=== PATIENT | male | born 1945 | race Caucasian/White ===

== ENCOUNTER 2017-10-08 07:20 | Day surgery (SDC) | payer MEDICARE, SELFPAY ==
[2017-10-08 07:42] VITALS: BP 121/73; PULSE 58; RESP 16; TEMP 36.3; O2SAT 100; BMI 32.3
--- NOTE | 2017-10-08 08:50 | RAD_ITS ---
PROCEDURE: Cervical facet block. DATE OF EXAMINATION: October 08, 2017. INDICATION: Male, 72 years old. Neck pain. FLUOROSCOPY TIME (if supplied): (0:17) minutes/seconds Intraoperative imaging provided for left C4-C7 facet joint block. The spinal needles are seen at the appropriate sites. RAD/Cerv Spine 4 or 5 Views IMPRESSION: Fluoroscopic imaging provided for left C4-C7 facet joint block. Electronically Signed: Lyle Meadows MD at 8:17 EDT Tel [phone], Service support ,
[2017-10-08] MEDS: Bupivacaine 0.25% 30 ML Vial (09:01)
[2017-10-08] MEDS: MethylPREDNISolone Acetate 80 MG/ML Vial (09:02)
[2017-10-08 09:10] VITALS: BP 111/63; BP 121/73; PULSE 53; RESP 16; O2SAT 95
[2017-10-08 09:14] VITALS: BP 106/65; BP 121/73; PULSE 54; RESP 18; TEMP 36.2; O2SAT 99
[2017-10-08 09:25] VITALS: BP 107/72; BP 121/73; PULSE 51; RESP 16; O2SAT 95
[2017-10-08 09:31] VITALS: BP 104/81; BP 121/73; PULSE 50; RESP 16; TEMP 36.4; O2SAT 97
[2017-10-08 09:48] VITALS: BP 121/73
--- NOTE | 2017-10-08 10:44 | OP.PCM_ITS ---
Problem List (1) Cervical spondylosis Status: Chronic (2) DDD (degenerative disc disease), cervical Status: Chronic Report of Operation Date of Procedure: 10/08/17 Pre-Operative Diagnosis: Cervical spondylosis, cervical degenerative disc disease, cervical facet arthropathy Post-Operative Diagnosis: Cervical spondylosis, cervical degenerative disc disease, cervical facet arthropathy Surgery/Procedure Performed:: Left-sided cervical facet steroid injection C4, C5 , C6, C7 Description of Surgical Findings:: PROCEDURE: Left-sided cervical facet steroid injection C4, C5, C6, C7 PREOPERATIVE DIAGNOSES: Cervical spondylosis, cervical degenerative disc disease, and cervical facet arthropathy POSTOPERATIVE DIAGNOSES: Cervical spondylosis, cervical degenerative disc disease, and cervical facet arthropathy ANESTHESIA: MAC COMPLICATIONS: None BLOOD LOSS: Minimal PROCEDURE IN DETAIL: History and physical today was reviewed. Risks and benefits of the procedure were explained. The patient understood, agreed to our procedure, and informed consent was obtained. IV inserted per routine protocol. The patient was taken to the operating room, placed in a prone position with a pillow positioned underneath the chest. The neck area was prepped and draped in a sterile fashion using iodine x3. Under fluoroscopy guidance, on AP view, C4 through C7 vertebral bodies were visualized. . Under direct visualization with fluoroscopy at approximately 15-degree angle, starting on the left C4, ending on the left C7, passing through the C5-C6 using a 25-gauge 3-1/2 inch spinal needle, the needle was passed through the skin. The tip of the needle was maneuvered and directed towards the apophyseal junction of each corresponding vertebra. Once the tip of the needle was at the vicinity of the medial branch and in contact with the bone, the needle was redirected more lateral towards the medial branch. Once in contact with the medial branch, the stylet of each needle was then removed. After negative aspiration of blood with CSF and confirmation of AP as well as oblique view, a total of 3 mL of preservative- free 0.25% Marcaine with 80 mg Depo-Medrol was injected in divided doses between those 4 levels. The needles were then removed intact. The patient experienced no signs or symptoms of intrathecal, intravascular injection. The patient experienced no paraesthesia. The procedure was completed without any apparent difficulty, any complication. The patient appeared to tolerate well. ASSESSMENT AND PLAN: This is a 72-year-old Male with cervical spondylosis, cervical degenerative disc disease, and cervical facet arthropathy, status post left-sided cervical facet steroid injection C4 through C7. The patient will continue his current medications. The patient will follow up in approximately 2 weeks fo reevaluation.
== END 2017-10-08 09:49 | disposition home or self-care (01) ==
LOC: SDC 07:22 → AC 07:24
PROVIDERS: Visit Provider Anesthesiology Pain Medicine
PROC: 3E0U3BZ Introduction of Anesthetic Agent into Joints, Percutaneous Approach (ICD-10-PCS; CPT 64490; principal; 2017-10-08 08:45)
DX: M47.892 Other spondylosis, cervical region (principal); M50.321 Other cervical disc degeneration at C4-C5 level; M46.82 Other specified inflammatory spondylopathies, cervical region; I10 Essential (primary) hypertension; E78.5 Hyperlipidemia, unspecified; E11.9 Type 2 diabetes mellitus without complications; Z79.84 Long term (current) use of oral hypoglycemic drugs; Z79.899 Other long term (current) drug therapy
CPT/HCPCS: 64491; 64492; 64490; 72050; J7120

== ENCOUNTER 2018-06-24 09:43 | Day surgery (SDC) | payer MEDICARE, SELFPAY ==
--- NOTE | 2018-06-20 08:57 | HP.PCM_ITS ---
History of Present Illness The patient is a 73 year old M [] Past Medical History Past Medical History (Chronic Problems): Chronic Problems Cervical spondylosis (Chronic) DDD (degenerative disc disease), cervical (Chronic) Allergies No Known Allergies Allergy (Verified 06/19/18 09:23) Home Medications: Ambulatory Orders Medication Instructions Recorded Amitriptyline HCl [Elavil] 100 mg PO QHS 10/05/17 Cholecalciferol (Vitamin D3) 2,000 unit PO TID 10/05/17 [Vitamin D3] Levothyroxine [Synthroid] 50 mcg PO DAILY 10/05/17 Ranitidine [Zantac] 300 mg PO QHS 10/05/17 Vitamin B Complex 1 each PO DAILY 10/05/17 Amlodipine [Norvasc] 5 mg PO QHS 06/19/18 Fluticasone Propionate [24 Hour 15.8 ml NS DAILY 06/19/18 Allergy Relief] Hydrocodone/Acetaminophen [Vicodin 1 each PO TID 06/19/18 Hp 10-300 mg Tablet] Losartan/Hydrochlorothiazide 1 each PO DAILY 06/19/18 [Losartan-Hctz 100-25 mg Tab] Smoking Status: Never smoker Tobacco Use: Non-smoker Subjective: NOTE (Tuesday May 29, 2018 09:42 AM) Chief Complaint: F/U-Medication refills History of Present Illness: This is a 73 Y/O Male who was seen and evaluated at our office today as a follow up. Pain: neck (has decreased) and chandni feet .Post-lt thumb & finger sx.(getting stronger) Quality: constant in feet but varies in intensity Region: Pain at the base of neck up into skull but has decreased since his last inj from September.Pain in chandni feet is constant.Reports post-op pain in lt thumb and two fingers is getting stronger and has to decide when to get the other hand done. Severity: aching,burning,stabbing Timing: since 2011 Aggravated by: walking or standing Relieved by: injections Pain score (out of 10): 7/10 walking Other info: Patient is here for a follow up.Reports post op surgery in the left thumb and two fingers.States the finger and thumb are getting stronger and now has to decide when to get the right hand done.Reports pain in the feet has been elevated and states he has just been hurting a lot this past week.States it used to be worse at night but says it just hurts anytime and has been having pain in the knees and isnt sure if it is coming from the feet,weather or why they hurt so bad right now.Pain in the neck has been doing good since the last injection he had done last September. Patient states they went through some programs with [facility] for the SCS and states it was ABC and is now on C which seems to be working best so far but has only been on it for a week.Needs refill on vicodin and amitriptyline. Review of Systems: Patient denies any fever, chills, headache, change in weight without trying, vision or hearing problems. No cp, sob, anthony, pnd, orthopnea, or peripheral edema.They note no lumps or swollen glands, no new rashes, changing moles, or change in bowel or bladder function.Mood has been good overall. Past Medical History: h/o hearing aid h/o kidney stones h/o HTN h/o GERD h/o borderlineType II Diabetes h/o osteoarthritis s/p SCS Implant 10/21/2014 s/p CTR & Trigger finger release LT hand 2017 s/p right carpal tunnel release 2017 s/p sx on lt thumb and 2 fingers (bone replaced) 02/12/2018 Family History: Mother: HTN Father: HTN ======== Structured Family History ======== Father: Hypertension Mother: Hypertension Social History: [Tobacco: Never smoker Pipe Smoker: No Cigar Smoker: No Chewing Tobacco User: No] Patient denies any tobacco use or recreational drug use. Occasional alcohol consumption. Living situation: Occupation: Retired Allergies: No Known Allergies Medications: 1) amitriptyline 100 mg oral tablet, 1 PO QHS 2) amLODIPine 10 mg oral tablet, Take 1 tablet by mouth every evening 3) Fish Oil 1000 mg oral capsule, One tablet daily 4) fluticasone 50 mcg/inh nasal spray, each nostril BID 5) levothyroxine 50 mcg (0.05 mg) oral capsule, One tablet daily 6) losartan-hydroCHLOROthiazide 100 mg-25 mg oral tablet, Take 1 tablet by mouth once daily 7) metFORMIN 500 mg oral tablet, One tablet TID with meals 8) ranitidine 300 mg oral capsule, One tablet daily 9) VICODIN 10-300 MG, 1 PO TID PRN PAIN 10) Vitamin B12 500 mcg oral tablet, One tablet daily 11) Vitamin D3 2000 intl units oral capsule, One tablet BID 12) xray of cervical spine, M54.2 Physical Examination: Wt: 228 lb Ht/Ln: 67 in BMI: 35.7 BP: 125/72 Pulse: 57 RR: 16 Temp: 97.1F Pain: 7 Well nourished and well developed in no acute distress. Affect is normal and appropriate. Mucosa pink and moist. Chest is unlabored breathing, RRR, pt is alert and oriented to place, person and time. Neck is supple without significant lymphadenopathy or thyromegaly. Abdomen soft & non-tender. No HSM or masses appreciated. Extremities show no cyanosis, clubbing, or edema. Antalgic gait. Cervical ROM is limited due to pain much improved. Bilateral cervical facet challenge is positive much improved. Cervical paraspinal muscle tenderness much improved. Lumbar paraspinal muscle tenderness . Lumbar ROM is limited due to pain. Bilateral lumbar facet challenge is positive worse on the right. SLR is negative. Surgical scar is well healed. Motor and sensory exam is unchanged. Goals: Health Concerns: Assessment & Plan: # Lumbosacral spondylosis (M47.817): # Degenerative lumbar spinal stenosis (M48.06): # Lumbar radiculopathy (M54.16): # Lumbosacral radiculopathy (M54.17): # Cervical radiculopathy (M54.12): # Peripheral neuropathy (G64): # Carpal tunnel syndrome, bilateral upper limbs (G56.03): # Arthropathy of lumbar facet joint (M46.96): # Arthropathy of cervical spine facet joint (M48.9): # [facility] (current) use of opiate analgesic (Z79.891): # Cervical spondylosis (M47.812): # Degeneration of cervical intervertebral disc (M50.30): PRESCRIBE: VICODIN 10-300 MG, 1 PO TID PRN PAIN, # 90 , RF: 0. (M47.817): (M48.06): (M54.16): (M54.17): (M54.12): (G64): (G56.03): (M46.96): (M48.9): (Z79.891) Continue current medication regime Continue to use SCS states it does help UDS was reviewed, pt appears compliant OARRS was reviewed today and compliant. DIRE score is 19 SOAPP score is 1 Reviewed with the pt today our opioid agreement and they appear to understand. There are no signs of diversion or addiction with the pt, there is also no signs of abuse or misuse, continues to do well with their medications without any side effects, we will continue monitoring the pt closely. Risks and benefits of the above meds were discussed with the pt and he appears to understand. The common side effects of the medications were discussed and all of his questions and concerns were answered and he appears to understand Life style modifications were also discussed today and the pt appears to understand. Weight loss was recommended today through diet and exercise. Pt is to continue with his HEP Pt has tried multiple modalities in the past with little or no success, will schedule the pt for a therapeutic/diagnostic caudal epidural steroid injection We have discussed the risks, benefits as well as alternatives of the procedure and the patient appears to understand and would like to proceed with the above plan. The above plan was discussed today with the pt in details and he appears to understand and agrees to continue with the plan.
--- NOTE | 2018-06-20 08:57 | HP.PCM_ITS ---
History of Present Illness The patient is a 73 year old M [] Past Medical History Past Medical History (Chronic Problems): Chronic Problems Cervical spondylosis (Chronic) DDD (degenerative disc disease), cervical (Chronic) Allergies No Known Allergies Allergy (Verified 06/19/18 09:23) Home Medications: Ambulatory Orders Medication Instructions Recorded Amitriptyline HCl [Elavil] 100 mg PO QHS 10/05/17 Cholecalciferol (Vitamin D3) 2,000 unit PO TID 10/05/17 [Vitamin D3] Levothyroxine [Synthroid] 50 mcg PO DAILY 10/05/17 Ranitidine [Zantac] 300 mg PO QHS 10/05/17 Vitamin B Complex 1 each PO DAILY 10/05/17 Amlodipine [Norvasc] 5 mg PO QHS 06/19/18 Fluticasone Propionate [24 Hour 15.8 ml NS DAILY 06/19/18 Allergy Relief] Hydrocodone/Acetaminophen [Vicodin 1 each PO TID 06/19/18 Hp 10-300 mg Tablet] Losartan/Hydrochlorothiazide 1 each PO DAILY 06/19/18 [Losartan-Hctz 100-25 mg Tab] Smoking Status: Never smoker Tobacco Use: Non-smoker Subjective: NOTE (Sunday June 03, 2018 03:15 PM) Chief Complaint: F/U-Increased pain in the lower back into the hips and down the lt leg History of Present Illness: This is a 73 Y/O Female who was seen and evaluated at our office today as a follow up. Pain: lower back Quality: constant but varies in intensity Region: Lower back pain radiates across the lower back into the chandni hips and down the lt leg into the foot. Severity: dull-intense aching,sharp,burnig Timing: Since June 2014 Aggravated by: walking Relieved by: injections Pain score (out of 10): 7/10 Other info: Patient is here for a follow up for increased pain across the lower back into the hips and states the pain radiates down the left leg into the foot.States the pain is constant but varies in intensity with activity and can be sharp and burning on occasion. Wants to discuss the RFA as she isn't familiar with the procedure and wants to know what it involves, she would like to have an injection, she continues to have pain on her left side of her back and down the left leg, she denies any bowel or bladder problems, she continues to do ok with her medications. Review of Systems: Patient denies any fever, chills, headache, change in weight without trying, vision or hearing problems. No cp, sob, anthony, pnd, orthopnea, or peripheral edema.They note no lumps or swollen glands, no new rashes, changing moles, or change in bowel or bladder function.Mood has been good overall. Past Medical History: h/o HTN h/o breast cancer h/o endometrial cancer h/o hiatal hernia h/o Arthritis s/p TKRx2 RT s/p laparoscopy s/p breast mastectomy s/p total hysterectomy s/p Right THR 06/2015 Family History: Mother: Breast cancer Father: heart attack, diabetes Siblings: breast cancer ======== Structured Family History ======== Mother: Breast cancer Sister: Breast cancer Father: Myocardial infarction, Diabetes mellitus Social History: [Tobacco: Never smoker Pipe Smoker: No Cigar Smoker: No Chewing Tobacco User: No] Patient denies any tobacco use or recreational drug use. Occasional alcohol consumption. Living situation: Occupation: retired Tobacco: denies EtOH: denies Rec. drugs: denies Allergies: penicillin, tamoxifen, Arimidex, amoxicillin Medications: 1) aspirin 81 mg oral tablet, One tablet daily 2) biotin 5000 mcg oral tablet, disintegrating, One tablet daily 3) Calcium 600+D 600 mg-200 intl units oral tablet, One tablet daily 4) Centrum Silver oral tablet, One tablet daily 5) ibuprofen 200 mg oral tablet, PRN 6) Tylenol Extra Strength 500 mg oral tablet, PRN Physical Examination: Wt: 222 lb Ht/Ln: 62 in BMI: 40.6 BP: 122/80 Pulse: 91 RR: 16 Temp: 97.9F Pain: 6 Well nourished and well developed in no acute distress. Affect is normal and appropriate. Mucosa pink and moist. Chest is unlabored breathing, pt is alert and oriented to place, person and time. Neck is supple without significant lymphadenopathy or thyromegaly. Abdomen soft & non-tender. No HSM or masses appreciated. Extremities show no cyanosis, clubbing, or edema. Gait is Antalgic. Upper and lower Lumbar paraspinal muscle tenderness. Bilateral lumbar facet loading is positive . Lumbar ROM is limited due to pain. SLR is positive on the left. Motor and sensory exam is unchanged. 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 UDS was reviewed and was compliant. PEG was reviewed today. SOAPP score is 0 OARRS was reviewed today and compliant. Weight loss was recommended today through diet and exercise. Life style modifications were also discussed today and the pt appears to understand. There are no signs of diversion or addiction with the pt, there is also no signs of abuse or misuse, continues to do well with their medications without any side effects, we will continue monitoring the pt closely. Risks and benefits of the above meds were discussed with the pt and they appear to understand. The common side effects of the medications were discussed and all of their questions and concerns were answered and they appear to understand Pt is to continue with her HEP. Pt has tried multiple modalities with no success, we will schedule the pt for repeat caudal epidural steroid injection. We have discussed the risks, benefits as well as alternatives of the procedure and the patient appears to understand and would like to proceed with the above plan. The above plan was discussed today with the pt in details and they appear to understand and agrees to continue with the plan.
[2018-06-24 10:12] VITALS: BP 124/75; PULSE 58; RESP 16; TEMP 36.8; O2SAT 98; BMI 34.5
--- NOTE | 2018-06-24 10:36 | RAD_ITS ---
PROCEDURE: Caudal block. DATE OF EXAMINATION: June 24, 2018. INDICATION: Male, 73 years old. Chronic low back pain. FLUOROSCOPY TIME (if supplied): (0:26) minutes/seconds. 3 coned down intraoperative views were submitted. Intraoperative imaging provided for caudal block. The spinal needle is seen overlying the midportion of the sacrum. RAD/Fluor Guidance for Spine Inj IMPRESSION: Intraoperative imaging provided for caudal block. Electronically Signed: Lyle Meadows, at 8:48 EDT , Service support ,
[2018-06-24] MEDS: MethylPREDNISolone Acetate 80 MG/ML Vial (10:48)
[2018-06-24] MEDS: Bupivacaine 0.25% 30 ML Vial (10:49)
--- NOTE | 2018-06-24 10:52 | PCM.OPRPT ---
Problem List (1) Degeneration of intervertebral disc of lumbosacral region Status: Chronic (2) Radiculopathy of lumbosacral region Status: Chronic Report of Operation Date of Procedure: 06/24/18 Pre-Operative Diagnosis: Lumbosacral radiculopathy, lumbosacral degenerative disc disease, lumbosacral spinal stenosis Post-Operative Diagnosis: Lumbosacral radiculopathy, lumbosacral degenerative disc disease, lumbosacral spinal stenosis Surgery/Procedure Performed:: Diagnostic/therapeutic caudal epidural steroid injection Description of Surgical Findings:: PROCEDURE: Diagnostic/therapeutic caudal epidural steroid injection PREOPERATIVE DIAGNOSIS: Lumbosacral radiculopathy, lumbosacral degenerative disc disease, lumbosacral spinal stenosis POSTOPERATIVE DIAGNOSIS: Lumbosacral radiculopathy, lumbosacral degenerative disc disease, lumbosacral spinal stenosis ANESTHESIA: MAC COMPLICATIONS: None BLOOD LOSS: Minimal PROCEDURE IN DETAIL: History and physical today was reviewed. Risks and benefits of the procedure were explained. The patient understood, agreed to our procedure, and informed consent was obtained. IV inserted per routine protocol. The patient was taken to the operating room, placed in a prone position with a pillow positioned underneath the abdomen. The lower back area was prepped and draped in a sterile fashion using iodine x3 under fluoroscopy guidance on the lateral view the caudal space was identified the skin and subcutaneous tissue and size approximately 3 cc of 1% lidocaine using a 25-gauge regular needle under direct visualization fluoroscopy using a 22-gauge 3-1/2 inch spinal needle the needle was advanced via the skin through the sacral hiatus tip of the needle passed through the sacrococcygeal ligament advanced approximately S4 area after negative aspiration for blood or CSF a total of 3 cc of contrast were injected to confirm correct placement of the needle as well as cephalad spread the spread was followed to approximately L5 area after negative aspiration for blood or CSF and confirmation AP as well as lateral view a total of 15 cc of preservative-free 0.125% Marcaine with 80 mg of Depo-Medrol were injected easily. The needles were then removed intact. The patient experienced no signs or symptoms intrathecal, intravascular injection. The patient experienced no paraesthesia. The procedure was completed without any apparent difficult, any complication. The patient appeared to tolerate well. ASSESSMENT AND PLAN: This is a 73-year-old male with lumbosacral radiculopathy, lumbosacral degenerative disc disease, lumbosacral spinal stenosis status post diagnostic/therapeutic caudal epidural steroid injection. The patient will continue his current medications. The patient will follow in approximately 2 weeks for possible repeat of the procedure if indicated.
[2018-06-24 10:55] VITALS: BP 107/63; BP 124/75; PULSE 54; RESP 18; TEMP 36.4; O2SAT 99
[2018-06-24 11:00] VITALS: BP 124/75; BP 128/79; PULSE 50; RESP 18; O2SAT 97
[2018-06-24 11:05] VITALS: BP 124/75; BP 137/82; PULSE 56; RESP 18; O2SAT 97
[2018-06-24 11:10] VITALS: BP 124/75; BP 132/81; PULSE 55; RESP 18; TEMP 36.6; O2SAT 97
[2018-06-24 11:28] VITALS: BP 124/75
== END 2018-06-24 11:29 | disposition home or self-care (01) ==
LOC: SDC 09:46 → AC 09:57
PROVIDERS: Referring Provider Anesthesiology Pain Medicine; Visit Provider Anesthesiology Pain Medicine
PROC: 3E0S3BZ Introduction of Anesthetic Agent into Epidural Space, Percutaneous Approach (ICD-10-PCS; CPT 62282; principal; 2018-06-24 10:55)
DX: M51.17 Intervertebral disc disorders with radiculopathy, lumbosacral region (principal); M48.07 Spinal stenosis, lumbosacral region; I10 Essential (primary) hypertension; E78.00 Pure hypercholesterolemia, unspecified; G47.30 Sleep apnea, unspecified; K21.9 Gastro-esophageal reflux disease without esophagitis; M19.90 Unspecified osteoarthritis, unspecified site; E06.9 Thyroiditis, unspecified; R73.03 Prediabetes; Z79.891 Long term (current) use of opiate analgesic; Z79.899 Other long term (current) drug therapy
CPT/HCPCS: 62323; 64483; 77003; J7120; J3490

== ENCOUNTER 2019-10-27 12:03 | Day surgery (SDC) | payer MEDICARE, SELFPAY ==
[2019-10-24 20:38] LABS: Probe Check PASS; Specimen Processing Control PASS
[2019-10-27] VITALS (7 sets, daily range): BP systolic 118–156; BP diastolic 72–106; PULSE 60–71; RESP 16–18; TEMP 36.4–36.9; O2SAT 95–97; BMI 34.6
[2019-10-27 12:30] LABS: Bedside Glucose 117 mg/dL (70-110)
[2019-10-27] MEDS: Lactated Ringers 1,000 ML 100 ML IV (12:50)
[2019-10-27] MEDS: Cefazolin 2 GM in 0.9% Normal Saline 100 ML IV (14:34)
[2019-10-27] MEDS: Bupivacaine 0.25% 30 ML Vial (14:44)
--- NOTE | 2019-10-27 15:36 | PCM.OPRPT ---
Report of Operation Date of Procedure: 10/27/19 Description of Surgical Findings:: PROCEDURES: Exploration of the left buttock spinal cord stimulator generator pocket, creation of a left buttock spinal cord stimulator generator new pocket. PREOPERATIVE DIAGNOSES: Lumbosacral radiculopathy, lumbosacral degenerative disc disease, painful left buttock spinal cord stimulator generator pocket, erosion of spinal cord stimulator generator wound and dehiscence POSTOPERATIVE DIAGNOSES: Lumbosacral radiculopathy, lumbosacral degenerative disc disease, painful left buttock spinal cord stimulator generator pocket, erosion of spinal cord stimulator generator wound and dehiscence ANESTHESIA: MAC COMPLICATIONS: None BLOOD LOSS: Minimal PROCEDURE IN DETAIL: History and physical today was reviewed. Risks and benefits of procedure explained. The patient understood, agreed to procedure, informed consent was obtained. IV inserted per routine protocol. The patient was taken to the operating room, placed in the prone position with a pillow positioned underneath the chest. A 2 g of Ancef IV piggyback was infused per anesthesia. The lower back and buttock area was prepped and draped in a sterile fashion using iodine x3. The area was then draped in a sterile fashion with standard sterile fashion the skin and subcutaneous tissue at the left lower lumbar and buttock region was anesthetized with approximately 20 cc of a preservative-free mix of 1% lidocaine and 0.25% Marcaine at the previous incision the skin and subcutaneous tissue with then cutdown with an 11 blade followed by Bovie a careful attention was taken not to cut the wires to the spinal cord stimulator generator hemostasis was then maintained with Bovie as well as pressure once hemostasis was maintained the area was then explored and the spinal cord stimulator generator was then taken off its place after further exploration of the sutures attaching the spinal cord stimulator generator to the fascia the area was then explored further and the skin and subcutaneous tissue were then anesthetized further with a total of 10 cc of the above mixture the pocket was then advanced deeper into the fascia and taken down making sure maintaining a hemostasis during the procedure once the area was then explored the spinal cord stimulator was then re-inserted at the left buttock region once impedance as well the connection was then achieved via the Snatch that [employer] rep, the spinal cord stimulator generator was then resecured to the fascia with a 2 stitches 2-0 nylon down to the fascia at the 2 eyes of the spinal cord stimulator generator and the generator was then placed into its pocket with the [employer] printing facing posterior to the fascia and an anterior to the incision hemostasis was then maintained and after further exploration without any apparent bleeding the spinal cord stimulator generator pocket was then closed primarily with the interrupted 3-0 Vicryl followed by a running 4-0 Monocryl the area was then dressed with bacitracin and Tegaderm after Steri-Strips were placed the procedure was then completed without any apparent difficulty or any complication and the patient appeared to tolerate it well, there were no intraoperative complications. ESTIMATED BLOOD LOSS: Minimal less than 20 mL ASSESSMENT AND PLAN: This is a 74-year-old Male with Lumbosacral radiculopathy, lumbosacral degenerative disc disease, painful left buttock spinal cord stimulator generator pocket, erosion of spinal cord stimulator generator wound and dehiscence, status post Exploration of the left buttock spinal cord stimulator generator pocket, creation of a left buttock spinal cord stimulator generator new pocket, patient will continue his current medication a prescription was given to the patient and his for Keflex 500 mg 1 p.o. every 8 hours for 7 days postop instruction were given to the patient as well as his verbally as well as in writing patient will follow approximately 1 week for reevaluation.
== END 2019-10-27 17:17 | disposition home or self-care (01) ==
LOC: SDC 12:04 → AC 12:06
PROVIDERS: Anesthesiology; Referring Provider Anesthesiology Pain Medicine; Visit Provider Anesthesiology Pain Medicine
PROC: (CPT 63685; principal; 2019-10-27 13:15)
DX: Z45.42 Encounter for adjustment and management of neurostimulator (principal); Z11.59 Encounter for screening for other viral diseases; M19.90 Unspecified osteoarthritis, unspecified site; K21.9 Gastro-esophageal reflux disease without esophagitis; E11.42 Type 2 diabetes mellitus with diabetic polyneuropathy; M51.17 Intervertebral disc disorders with radiculopathy, lumbosacral region; M48.07 Spinal stenosis, lumbosacral region; E78.00 Pure hypercholesterolemia, unspecified; E11.22 Type 2 diabetes mellitus with diabetic chronic kidney disease; I12.9 Hypertensive chronic kidney disease with stage 1 through stage 4 chronic kidney disease, or unspecified chronic kidney disease; N18.3 Chronic kidney disease, stage 3 (moderate); Z79.899 Other long term (current) drug therapy; Z79.51 Long term (current) use of inhaled steroids; Z79.891 Long term (current) use of opiate analgesic; G47.30 Sleep apnea, unspecified
CPT/HCPCS: 63688; 82962; 87635; 94799; J7120; J2405; U0003

== ENCOUNTER 2021-03-28 09:09 | Day surgery (SDC) | payer MEDICARE, SELFPAY ==
[2021-03-28 09:46] VITALS: BP 115/63; PULSE 68; RESP 16; TEMP 36.9; O2SAT 98; BMI 33.5
[2021-03-28] MEDS: Lactated Ringers 1,000 ML 15 ML IV (09:51)
--- NOTE | 2021-03-28 09:59 | HP.PCM_ITS ---
History and Physical Date of Admission: 03/28/21 Chief Complaint: Follow up- x-ray review of left hip History of Present Illness: This is a 75 Y/O male who was evaluated by our office today as a follow up. Pain: neck (mild stiffness),lower back,right thigh, chandni feet (numbness/stabbing),chandni hands. left hip Quality: constant in feet but varies in intensity Region: Pain at the base of neck up into skull but is mild stiffness.Reports low back pain and has pain down the right upper thigh and in his feet which are the worst.Reports pain in chandni hands. Severity: aching,occasional stabbing,numbness Timing: since 2011 Aggravated by: walking or standing Relieved by: sleep, SCS, injections, medications Pain score (out of 10): 11/02 Other info: Patient is here for a follow up to review x-ray of left hip. Reports numbness/stabbing, burning in his bilateral feet. States his feet are his main concern. Reports his toes on bilateral feet constantly ache. Reports some neck pain on occasion but is mild stiffness. Reports bilateral knee pain and gets catching and stiffness. Reports pain in lower back varies with activity. States he has an intermittent sharp pain in left hip underneath the implant. Reports arthritis pain in his hands/fingers. No refills needed. Review of Systems: Patient denies any fever, chills, headache, change in weight without trying, vision or hearing problems. No cp, sob, anthony, pnd, orthopnea, or peripheral edema.They note no lumps or swollen glands, no new rashes, changing moles, or change in bowel or bladder function. Mood has been fluctuating. Past Medical History: h/o hearing aid h/o kidney stones h/o HTN h/o GERD h/o Type II Diabetes h/o osteoarthritis h/o chandni cataracts s/p SCS Implant 10/21/2014 s/p CTR & Trigger finger release LT hand 2016 s/p right carpal tunnel release 2016 s/p sx on lt thumb and 2 fingers (bone replaced) 02/12/2018 s/p chandni cataract sx 2018 s/p wisdom tooth s/p surgery on rt thumb 2019 Family History: Mother: HTN Father: HTN ======== Structured Family History ======== Father: Hypertension Mother: Hypertension Social History: [Tobacco: Never smoker Pipe Smoker: No Cigar Smoker: No Chewing Tobacco User: No] Patient denies any tobacco use or recreational drug use. Occasional alcohol consumption. Living situation: Occupation: Retired Allergies: No Known Allergies Medications: 1) amitriptyline 100 mg oral tablet, 1 PO QHS 2) amLODIPine 10 mg oral tablet, Take 1 tablet by mouth every evening 3) Fish Oil 1000 mg oral capsule, One tablet daily 4) Flomax 0.4 mg oral capsule, Take 1 tablet by mouth once daily 5) fluticasone 50 mcg/inh nasal spray, each nostril BID 6) gabapentin 600 mg oral tablet, 1 CAPSULE PO QID 7) hydroCHLOROthiazide 25 mg oral tablet, Take 1 tablet by mouth once daily 8) hydrocodone-acetaminophen 10 mg-300 mg oral tablet, 1 PO QID PRN PAIN. 9) levothyroxine 50 mcg (0.05 mg) oral capsule, One tablet daily 10) losartan 100 mg oral tablet, Take 1 tablet by mouth once daily 11) potassium chloride 10 mEq oral capsule, extended release, Take 1 tablet by mouth once daily 12) rosuvastatin 5 mg oral tablet, Take 1 tablet by mouth once daily 13) Vitamin B12 500 mcg oral tablet, One tablet daily 14) Vitamin D3 2000 intl units oral capsule, One tablet BID Physical Examination: Wt: 219 lb Ht/Ln: 67 in BMI: 34.3 BP: 135/79 Pulse: 47 RR: 16 Temp: 97.1F Pain: 8 Well nourished and well developed in no acute distress. Alert and oriented to person, place and time. Affect is normal and appropriate. Mucosa pink and moist. Respirations even and unlabored. Neck is supple without significant lymphadenopathy or thyromegaly. Abdomen soft & non-tender. No HSM or masses appreciated. Extremities show no cyanosis, clubbing, or edema. Gait is Antalgic. Cervical ROM is limited due to pain. Pain elicited with light palpation left greater trochanteric region Left upper gluteal incision is well healed. Bilateral cervical facet challenge is positive. Cervical paraspinal muscle tenderness. Lumbar paraspinal muscle tenderness. Lumbar ROM is limited due to pain worse with extension. Bilateral lumbar facet challenge is positive. SLR is negative. Positive surgical scar that is well healed. Motor and sensory exam is unchanged. 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 Continues to use his SCS with relief pt is to contact [employer] regarding how his stimulator is functioning. Follow up with his PCP UDS was reviewed, pt appears compliant OARRS was reviewed today and compliant. Pt was advised not to consume alcohol with his medications due to possible severe interaction, pt appears to understand. DIRE score is 19 SOAPP score is 1 Xray of the left hip was reviewed with the pt today and they appear to understand There are no signs of diversion or addiction with the pt, there is also no signs of abuse or misuse, continues to do well with their medications without any side effects, we will continue monitoring the pt closely. Risks and benefits of the above meds were discussed with the pt and he appears to understand. The common side effects of the medications were discussed and all of his questions and concerns were answered and he appears to understand. Life style modifications were also discussed today and the pt appears to understand. Weight loss was recommended today through diet and exercise. Pt is to continue with his HEP. Pt has tried multiple modalities with no success, we will schedule the pt for a therapeutic/diagnostic left hip intra-articular steroid injection under fluoroscopy We have discussed the risks, benefits as well as alternatives of the procedure and the patient appears to understand and would like to proceed with the above plan. The above plan was discussed today with the pt in details and they appear to understand and agrees to continue with the plan. PROVIDED: Patient Education (03/14/2021)
[2021-03-28 10:00] LABS: Bedside Glucose 119 mg/dL (70-110)
--- NOTE | 2021-03-28 10:00 | RAD_ITS ---
STUDY: X-RAY - PELVIS AND LEFT HIP REASON FOR EXAM: Male, 76 years old. Left hip injection. TECHNIQUE: A single frontal intraprocedural view of the pelvis and hip. COMPARISON: None. FINDINGS: A single frontal intraprocedural view of the left hip shows a needle with contrast within the left hip joint. RAD/Fluoro Guided Needle Placement IMPRESSION: Single frontal intraoperative procedural documentation view. Electronically Signed: Quinton Sanon MD at 10:51 EST , Service support ,
[2021-03-28 10:20] VITALS: BP 109/61; BP 115/63; PULSE 64; RESP 17; TEMP 35.7; O2SAT 94
[2021-03-28 10:25] VITALS: BP 114/68; BP 115/63; PULSE 65; RESP 14; O2SAT 95
[2021-03-28 10:30] VITALS: BP 115/63; BP 122/70; PULSE 62; RESP 16; O2SAT 93
[2021-03-28 10:36] VITALS: BP 115/63; BP 117/71; PULSE 61; RESP 16; TEMP 35.8; O2SAT 94
[2021-03-28 10:48] VITALS: BP 115/63
--- NOTE | 2021-03-28 11:15 | PCM.OPRPT ---
Report of Operation Date of Procedure: 03/28/21 Description of Surgical Findings:: PREOPERATIVE DIAGNOSIS: Osteoarthritis of the left hip POSTOPERATIVE DIAGNOSIS: Osteoarthritis of the left hip PROCEDURE PERFORMED: Left hip intraarticular steroid injection under fluoroscopy guidance. ANESTHESIA: MAC. BLOOD LOSS: Minimal. COMPLICATIONS: None. DESCRIPTION OF PROCEDURE: History and physical of today was reviewed. Risks and benefits of the procedure were explained. The patient understood and agreed to proceed. Informed consent was obtained. IV inserted per routine protocol. The patient was taken to the operating room and placed in the supine position. The left hip area was prepped and draped in a sterile fashion using iodine x3. Under fluoroscopy guidance on AP view, the left hip joint was visualized. The skin and subcutaneous tissue was anesthetized with approximately 3 mL of 1% lidocaine using a 25-gauge regular needle approximately 3 cm cephalad to the left greater trochanter. Under direct visualization with fluoroscopy on an AP view, using a 22-gauge 5-inch spinal needle, the needle was advanced via the skin using the lateral approach. The tip of the needle was maneuvered and directed towards the superiormost aspect of the hip joint. Once the tip of the needle was at the vicinity of the joint, after negative aspiration for blood and positive aspiration of synovial fluid, a total of 1 mL of contrast was injected to confirm correct placement of the needle as well as halo spread around the hip joint. After repeated negative aspiration for blood and confirmation on AP as well as oblique view, a total of 10 mL of preservative-free 0.25% Marcaine with 80 mg of Depo-Medrol was injected easily. The needle was then removed intact. The patient experienced no sign or symptoms of intrathecal or intravascular injection. The patient experienced no paresthesia. The procedure was completed without any apparent difficulty or any complications. The patient appeared to tolerate it well. ASSESSMENT AND PLAN: This is a 76-year-old male with osteoarthritis of the left hip status post left hip intra-articular steroid injection under fluoroscopic guidance, patient will continue his current medications, patient will follow in approximately 2 weeks for reevaluation.
== END 2021-03-28 23:59 | disposition home or self-care (01) ==
LOC: SDC 09:10 → AC 09:14
PROVIDERS: Referring Provider Anesthesiology Pain Medicine; Visit Provider Anesthesiology Pain Medicine
PROC: 3E0U3GC Introduction of Other Therapeutic Substance into Joints, Percutaneous Approach (ICD-10-PCS; CPT 20610; principal; 2021-03-28 10:35)
DX: M16.12 Unilateral primary osteoarthritis, left hip (principal); E11.42 Type 2 diabetes mellitus with diabetic polyneuropathy; I10 Essential (primary) hypertension; K21.9 Gastro-esophageal reflux disease without esophagitis; Z79.899 Other long term (current) drug therapy; Z79.890 Hormone replacement therapy; E03.9 Hypothyroidism, unspecified; E78.00 Pure hypercholesterolemia, unspecified; G47.30 Sleep apnea, unspecified
CPT/HCPCS: 20610; 76000; 77002; 82962; J7120

== ENCOUNTER 2021-05-02 09:22 | Day surgery (SDC) | payer MEDICARE, SELFPAY ==
[2021-05-02 10:06] VITALS: BP 133/72; PULSE 65; RESP 18; TEMP 37; O2SAT 96; BMI 34.0
[2021-05-02 10:25] LABS: Bedside Glucose 129 mg/dL (70-110)
[2021-05-02] MEDS: Lactated Ringers 1,000 ML 15 ML IV (10:25)
[2021-05-02] MEDS: Bupivacaine 0.25% 30 ML Vial (10:40)
[2021-05-02] MEDS: Lidocaine 1% (30 ml sdv) 30 ML Vial (10:40)
[2021-05-02] MEDS: MethylPREDNISolone Acetate 40 MG/ML Vial IM (10:40)
[2021-05-02 10:51] VITALS: BP 116/65; BP 133/72; PULSE 67; RESP 18; TEMP 36.8; O2SAT 96
[2021-05-02 10:55] VITALS: BP 116/59; BP 133/72; PULSE 57; RESP 16; O2SAT 92
--- NOTE | 2021-05-02 10:55 | RAD_ITS ---
PROCEDURE: Caudal block. DATE OF EXAMINATION: 05/02/2021. INDICATION: Male, 76 years old. Chronic low back pain. FLUOROSCOPY TIME (if supplied): (4 seconds) minutes/seconds. 2 images were obtained. RAD/Fluor Guidance for Spine Inj IMPRESSION: Intraoperative imaging provided for caudal block. Electronically Signed: Lyle Meadows MD at 15:02 EST ,
[2021-05-02 11:00] VITALS: BP 107/63; BP 133/72; PULSE 58; RESP 16; O2SAT 95
[2021-05-02 11:04] VITALS: BP 101/67; BP 133/72; PULSE 58; RESP 16; TEMP 37; O2SAT 95
[2021-05-02 11:17] VITALS: BP 133/72
--- NOTE | 2021-05-02 11:23 | OP.PCM_ITS ---
Report of Operation Date of Procedure: 05/02/21 Pre-Operative Diagnosis: Lumbosacral radiculopathy, lumbosacral degenerative di sc disease, lumbosacral spinal stenosis Post-Operative Diagnosis: Lumbosacral radiculopathy, lumbosacral degenerative disc disease, lumbosacral spinal stenosis Surgery/Procedure Performed:: Caudal epidural steroid injection under fluoroscopic guidance Type of Anesthesia: MAC Estimated Blood Loss (mL): Minimal Description of Procedure: DESCRIPTION OF PROCEDURE: History and physical of today was reviewed. Risks and benefits of the procedure were explained. The patient understood and agreed to proceed. Informed consent was obtained. IV inserted per routine protocol. The patient was taken to the operating room and placed in the prone position with a pillow positioned underneath the abdomen. The lower back and tailbone area was prepped and draped in a sterile fashion using iodine x3. Under fluoroscopy guidance on a lateral view, the caudal space was identified. The skin and subcutaneous tissue was anesthetized with approximately 3 mL of 1% lidocaine using a 25-gauge regular needle. Under direct visualization with fluoroscopy, using a 22-gauge 3-1/2-inch spinal needle, the needle was advanced via the skin through the sacral hiatus. The tip of the needle was passed through the sacrococcygeal ligament and advanced to approximately S4 area. After negative aspiration of blood or CSF, a total of 3 mL of contrast was injected to confirm correct placement of the needle as well as cephalad spread. The spread was followed to approximately L5 area. After confirmation on AP as well as lateral view and repeated negative aspiration, a total of 15 mL of preservative-free 0.125% Marcaine with 80 mg of Depo-Medrol was injected easily. The needle was then removed intact. The patient experienced no sign or symptoms of intrathecal or intravascular injection. The patient experienced no paresthesia. The procedure was completed without any apparent difficulty or any complications. The patient appeared to tolerate it well. ASSESSMENT AND PLAN: This is a 76-year-old male with lumbosacral radiculopathy, lumbosacral degenerative disc disease, lumbosacral spinal stenosis status post caudal epidural steroid injection, patient will continue his current medications, patient will follow in approximately 2 weeks for reevaluation. Complications None
== END 2021-05-02 23:59 | disposition home or self-care (01) ==
LOC: SDC 09:26 → AC 09:30
PROVIDERS: Referring Provider Anesthesiology Pain Medicine; Visit Provider Anesthesiology Pain Medicine
PROC: 3E0S3BZ Introduction of Anesthetic Agent into Epidural Space, Percutaneous Approach (ICD-10-PCS; CPT 62282; principal; 2021-05-02 10:50)
DX: M51.17 Intervertebral disc disorders with radiculopathy, lumbosacral region (principal); E11.42 Type 2 diabetes mellitus with diabetic polyneuropathy; M48.07 Spinal stenosis, lumbosacral region; K21.9 Gastro-esophageal reflux disease without esophagitis; I10 Essential (primary) hypertension; M47.22 Other spondylosis with radiculopathy, cervical region; M47.26 Other spondylosis with radiculopathy, lumbar region; M13.852 Other specified arthritis, left hip; Z79.899 Other long term (current) drug therapy; Z79.890 Hormone replacement therapy; Z79.51 Long term (current) use of inhaled steroids; Z79.84 Long term (current) use of oral hypoglycemic drugs; E78.00 Pure hypercholesterolemia, unspecified; E07.9 Disorder of thyroid, unspecified; G47.30 Sleep apnea, unspecified
CPT/HCPCS: 62323; 64483; 77003; 82962; J7120

== ENCOUNTER 2022-09-11 07:32 | Day surgery (SDC) | payer MEDICARE, SELFPAY ==
[2022-09-11] VITALS (7 sets, daily range): BP systolic 92–134; BP diastolic 51–63; PULSE 50–65; RESP 16–18; TEMP 36.1–37; O2SAT 96–99; BMI 31.4
[2022-09-11] MEDS: Lactated Ringers 1,000 ML 15 ML IV (09:16)
--- NOTE | 2022-09-11 09:43 | RAD_ITS ---
PROCEDURE: Fluoroscopic guided needle placement. INDICATION: Caudal block EXAMINATION/TECHNIQUE: 1 spot intraoperative films were provided for interpretation. Total Fluoroscopic Time: 8 seconds AND number of Fluoroscopic Images: 1 OR Radiation dosage index: 3.64 mGy COMPARISON: None. FINDINGS: Limited single lateral intraoperative fluoroscopic spot image of the sacrum and coccyx were obtained during fluoroscopy guided caudal block procedure. Lateral view of the sacrum and coccyx demonstrate needle placement at the level of the sacrococcygeal junction with contrast injection. RAD/Fluor Guidance for Spine Inj IMPRESSION: Fluoroscopy-guided caudal block. Please see intraoperative report for detailed findings. Electronically Signed: Samy Ryder DO at 13:52 EDT ,
[2022-09-11] MEDS: MethylPREDNISolone Acetate 80 MG/ML Vial (09:50)
[2022-09-11] MEDS: 0.9% Normal Saline (Pres. free 10 ML Vial (09:50)
[2022-09-11] MEDS: Lidocaine 1% (5 ml sdv) 5 ML Vial (09:50)
[2022-09-11 10:29] LABS: Bedside Glucose 99 mg/dL (74-106)
--- NOTE | 2022-09-11 11:23 | OP.PCM_ITS ---
Report of Operation Date of Procedure: 09/11/22 Pre-Operative Diagnosis: Lumbosacral radiculopathy, lumbosacral degenerative di sc disease, lumbosacral spinal stenosis Post-Operative Diagnosis: Lumbosacral radiculopathy, lumbosacral degenerative disc disease, lumbosacral spinal stenosis Surgery/Procedure Performed:: Diagnostic/therapeutic caudal epidural steroid injection under fluoroscopic guidance Type of Anesthesia: MAC Estimated Blood Loss (mL): Minimal Description of Procedure: DESCRIPTION OF PROCEDURE: History and physical of today was reviewed. Risks and benefits of the procedure were explained. The patient understood and agreed to proceed. Informed consent was obtained. IV inserted per routine protocol. The patient was taken to the operating room and placed in the prone position with a pillow positioned underneath the abdomen. The lower back and tailbone area was prepped and draped in a sterile fashion using iodine x3. Under fluoroscopy guidance on a lateral view, the caudal space was identified. The skin and subcutaneous tissue was anesthetized with approximately 3 mL of 1% lidocaine using a 25-gauge regular needle. Under direct visualization with fluoroscopy, using a 22-gauge 3-1/2-inch spinal needle, the needle was advanced via the skin through the sacral hiatus. The tip of the needle was passed through the sacrococcygeal ligament and advanced to approximately S4 area. After negative aspiration of blood or CSF, a total of 3 mL of contrast was injected to confirm correct placement of the needle as well as cephalad spread. The spread was followed to approximately L5 area. After confirmation on AP as well as lateral view and repeated negative aspiration, a total of 15 mL of preservative-free 0.125% Marcaine with 80 mg of Depo-Medrol was injected easily. The needle was then removed intact. The patient experienced no sign or symptoms of intrathecal or intravascular injection. The patient experienced no paresthesia. The procedure was completed without any apparent difficulty or any complications. The patient appeared to tolerate it well. ASSESSMENT AND PLAN: This is a 77-year-old male with lumbosacral radiculopathy, lumbosacral degenerative disc disease, lumbosacral spinal stenosis status post diagnostic/therapeutic caudal epidural steroid injection, patient will continue his current medications, patient will follow in approximately 2 weeks for reevaluation. Complications None
== END 2022-09-11 10:40 | disposition home or self-care (01) ==
LOC: SDC 07:38 → AC 08:55
PROVIDERS: Referring Provider Anesthesiology Pain Medicine; Visit Provider Anesthesiology Pain Medicine
PROC: 3E0S3BZ Introduction of Anesthetic Agent into Epidural Space, Percutaneous Approach (ICD-10-PCS; CPT 62282; principal; 2022-09-11 09:25)
DX: M51.17 Intervertebral disc disorders with radiculopathy, lumbosacral region (principal); E11.9 Type 2 diabetes mellitus without complications; M48.07 Spinal stenosis, lumbosacral region; G64 Other disorders of peripheral nervous system; Z79.01 Long term (current) use of anticoagulants; Z79.899 Other long term (current) drug therapy; Z79.84 Long term (current) use of oral hypoglycemic drugs
CPT/HCPCS: 62323; 01992; 64490; 77003; 82962; J7120; J3490

== ENCOUNTER 2024-10-13 09:41 | Day surgery (SDC) | payer MEDICARE, SELFPAY ==
--- NOTE | 2024-10-07 18:44 | PAT.ANESEVAL ---
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 When Was Last Pacemaker Check QUESTION #4 FULL TEXT: You/Your Family Experience fever (hyperthermia) with Anesthesia Last Oral Intake Last Oral intake: Last Oral Intake NPO since Meds taken in AM with sips of water? 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 Female Yes 10/07/24 10:23 HX of Motion Sickness No 10/07/24 10:23 HX of N/V After Surgery No 10/07/24 10:23 Non-Smoker Yes 10/07/24 10:23 Duration of Surgery greater No 10/07/24 10:23 than 60 minutes Number of Risk Factors 2 10/07/24 10:23 PONV Score Moderate Risk 10/07/24 10:23 Height & Weight Height & Weight: Anesthesia: Height & Weight Height 5 ft 8 in 09/11/22 09:10 Respiratory Assessment Respiratory Assessment - lawn sprinkler installer: Respiratory Tract Infection Hx - lawn sprinkler installer Hx Respiratory Tract Infection No 10/07/24 10:23 STOP Sleep Apnea STOP Sleep Apnea - lawn sprinkler installer: STOP Sleep Apnea - lawn sprinkler installer Hx Hypertension Yes: CONTROLLED WITH MED 10/07/24 10:23 Hx Sleep Apnea Yes 10/07/24 10:23 CPAP Yes: NO LONGER USES 10/07/24 10:23 BIPAP No 10/07/24 10:23 Do you snore loudly (louder than talking or can be heard Do you often feel tired/ fatigued/ sleepy during daytime? Has anyone observed you stop breathing during sleep? STOP Results Positive 10/07/24 10:23 QUESTION #5 FULL TEXT : Do you snore loudly (louder than talking or can be heard through closed doors)? 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 Specify any problems Hx of Preganancy in last 3 N/A 10/07/24 10:23 Months Nurse Filling Out Transfusion [id number] 10/07/24 10:23 & Questions: Date: 10/07/24 10/07/24 10:23 Time: 10:23 10/07/24 10:23 Patient unable to answer at this time (ie. confused, unrespo /Reproduction History /Reproductive History - lawn sprinkler installer: /Reproductive Hx- lawn sprinkler installer Hx Now No 10/07/24 10:23 Gestational Age (in weeks): EDC: Hx Hx Para Hx Section SAB No 10/07/24 10:23 [facility] Medical History (Updated 10/07/24 @ 13:01 by Garrett Colvin) History of pacemaker Cancer Heartburn CPAP (continuous positive airway pressure) dependence History of atrial fibrillation History of echocardiogram Cardiology follow-up encounter Wears hearing aid Wears glasses Thyroid disease Diabetes Arthritis High cholesterol Back pain Injury of head and neck Dietary restriction Non-smoker History of pain when walking History of stress test Hypertension History of trigger finger Home Medications ?Medication ?Instructions ?Recorded ?Last Taken ?Type amitriptyline 100 mg tablet 100 mg PO QHS 10/05/17 Unknown History cholecalciferol (vitamin D3) 50 1,000 unit PO DAILY 10/05/17 Unknown History mcg (2,000 unit) capsule (Vitamin D3) levothyroxine 50 mcg tablet 50 mcg PO [id number] 10/05/17 09/11/22 06:30 History vitamin B complex 1 ea PO DAILY 10/05/17 Unknown History amlodipine 5 mg tablet 10 mg PO DAILY bp 06/19/18 09/11/22 06:30 History fluticasone propionate 50 15.8 ml intranasal DAILY PRN nasal 06/19/18 Unknown History mcg/actuation nasal congestion spray,suspension (24 Hour Allergy Relief) hydrocodone 10 mg-acetaminophen 1 ea PO Q6H PRN PRN Pain 06/19/18 09/11/22 06:30 History 300 mg tablet (Vicodin HP) gabapentin 100 mg capsule 600 mg PO TID pain 10/24/19 09/11/22 06:30 History potassium chloride 10 mEq 10 meq PO DAILY 10/24/19 Unknown History tablet,extended release(part/cryst) coenzyme Q10 100 mg capsule 100 mg PO DAILY 03/22/21 Unknown History (CoQ-10) metformin 1,000 mg tablet 1,000 mg PO BID 03/22/21 Unknown History fsclt-d-viiixubyxmmli 400 unit 400 unit PO BID PRN (Drug) 09/07/22 Unknown History tablet (Beano) Ingestion atorvastatin 10 mg tablet 10 mg PO QHS 09/07/22 Unknown History levothyroxine 75 mcg tablet 75 mcg PO SUTH 09/07/22 Unknown History lisinopril 40 mg tablet 40 mg PO BID 09/07/22 09/11/22 06:30 History rivaroxaban 20 mg tablet (Xarelto) 20 mg PO DAILY 09/07/22 09/08/22 History semaglutide 2 mg/dose (8 mg/3 mL) 2 mg subcut WE 09/07/22 10/01/24 History subcutaneous pen injector (Ozempic) Allergy/AdvReac Type Severity Reaction Status Date / Time No Known Allergies Allergy Verified 10/07/24 10:20 Surgical History Hx laparoscopic cholecystectomy Hx of prostatectomy Hx of surgical procedure History of surgery Hx of thumb surgery Hx of surgical procedure Hx of surgical procedure History of bilateral carpal tunnel release Social History Smoking Status: Never smoker Audit: Pertinent Findings Pertinent Findings EKG Perinent findings: July 15, 2024. AV dual paced rhythm with frequent ventricular paced complexes. Echo (EF%) pertinent findings: 02/21/2023. EF of 63%. No aortic valve stenosis. Consult pertinent findings: 07/15/2024. Anthony?DEALER SUPPORT TECHNICIAN in cardiology. 1. Benign hypertension-controlled on current medications. 2. Paroxysmal atrial fibrillation-presently on sotalol. A-fib burden by pacemaker interrogation is 4% of the time. Continue meds. 3. Long-term current use of anticoagulants-currently on Xarelto. No current signs or symptoms of bleeding. Patient is to call with any problems. 4. Uexlynqer-twey-fimipme pacemaker. Normal function by today's interrogation. Recommendation Anesthesia Recommendation Anesthesia recommendation: OPTIMIZED for anesthesia
[2024-10-13] VITALS (7 sets, daily range): BP systolic 105–130; BP diastolic 59–87; PULSE 60–70; RESP 14–18; TEMP 2.2–36.3; O2SAT 96–98; BMI 33.7
[2024-10-13] MEDS: Lactated Ringers 1,000 ML 15 ML IV (10:26)
--- NOTE | 2024-10-13 10:30 | PCM.PRE.AN2 ---
ASA Classification* ASA Classification ASA Classification: 3 Assessment & Plan Anesthesia* Anesthesia Assessment Anesthesia Assessment: Discussed sedation and/or anesthesia options, risks, benefits, and alternatives with patient/parents/legal guardian/POA. Questions invited. The patient/parents/legal guardian/POA seems to understand and agrees to proceed with anesthesia plan. Reviewed the physical assessment, medical history, allergy history and patient home medications list prior to surgery/procedure/anesthetic and documented any changes. Performed airway and anesthesia risk assessments. Anesthesia Type Anesthesia Type: MAC History Source History Obtained from:: Patient and Chart Anesthesia Focused Assessment* Temperature: 96.7 F Pulse Rate: 70 Blood Pressure: 130/87 Respiratory Rate: 18 Pulse Ox: 97 Oxygen Delivery Method: Room Air Airway Assessment Mouth opens: >3 cm Mallampati Score: II Teeth Condition: Caps/Crowns (Patient has 1 veneer and 2 caps. 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 When Was Last Pacemaker Check QUESTION #4 FULL TEXT: You/Your Family Experience fever (hyperthermia) with Anesthesia Last Oral Intake Last Oral intake: Last Oral Intake NPO since 00:00 10/13/24 10:14 Meds taken in AM with sips of No 10/13/24 10:14 water? Meds patient instructed to take am of surgery Any additional information?: Yes Meds taken in AM with sips of water?: Yes PONV PONV - card clothier: PONV - card clothier Female Yes 10/07/24 10:23 HX of Motion Sickness No 10/07/24 10:23 HX of N/V After Surgery No 10/07/24 10:23 Non-Smoker Yes 10/07/24 10:23 Duration of Surgery greater No 10/07/24 10:23 than 60 minutes Number of Risk Factors 2 10/07/24 10:23 PONV Score Moderate Risk 10/07/24 10:23 Height & Weight Height & Weight: Anesthesia: Height & Weight Height 5 ft 8 in 10/13/24 10:14 Weight: 100.5 kg 10/13/24 10:14 Body Mass Index (BMI) 33.7 10/13/24 10:14 Respiratory Assessment Respiratory Assessment - card clothier: Respiratory Tract Infection Hx - card clothier Hx Respiratory Tract Infection No 10/07/24 10:23 STOP Sleep Apnea STOP Sleep Apnea - card clothier: STOP Sleep Apnea - card clothier Hx Hypertension Yes: CONTROLLED WITH MED 10/07/24 10:23 Hx Sleep Apnea Yes 10/07/24 10:23 CPAP Yes: NO LONGER USES 10/07/24 10:23 BIPAP No 10/07/24 10:23 Do you snore loudly (louder than talking or can be heard Do you often feel tired/ fatigued/ sleepy during daytime? Has anyone observed you stop breathing during sleep? STOP Results Positive 10/07/24 10:23 QUESTION #5 FULL TEXT : Do you snore loudly (louder than talking or can be heard through closed doors)? 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 Specify any problems Hx of Preganancy in last 3 N/A 10/07/24 10:23 Months Nurse Filling Out Transfusion [email or web address] 10/07/24 10:23 & Questions: Date: 10/07/24 10/07/24 10:23 Time: 10:23 10/07/24 10:23 Patient unable to answer at this time (ie. confused, unrespo /Reproduction History /Reproductive History - card clothier: /Reproductive Hx- card clothier Hx Now No 10/07/24 10:23 Gestational Age (in weeks): EDC: Hx Hx Para Hx Section SAB No 10/07/24 10:23 Active Medications Active Medications: Current Medications Generic Name Dose Route Start Last Admin Trade Name Freq PRN Reason Stop Dose Admin Lactated Ringer's 1,000 mls @ 15 mls/hr 10/13/24 10:00 10/13/24 10:26 IV 15 mls/hr .Q48H LYNDA Administration PFSH Medical History History of pacemaker Cancer Heartburn CPAP (continuous positive airway pressure) dependence History of atrial fibrillation History of echocardiogram Cardiology follow-up encounter Wears hearing aid Wears glasses Thyroid disease Diabetes Arthritis High cholesterol Back pain Injury of head and neck Dietary restriction Non-smoker History of pain when walking History of stress test Hypertension History of trigger finger Home Medications ?Medication ?Instructions ?Recorded ?Last Taken ?Type amitriptyline 100 mg tablet 100 mg PO QHS 10/05/17 10/12/24 History cholecalciferol (vitamin D3) 50 1,000 unit PO DAILY 10/05/17 10/12/24 History mcg (2,000 unit) capsule (Vitamin D3) levothyroxine 50 mcg tablet 50 mcg PO MOTUWEFRSA 10/05/17 10/11/24 History vitamin B complex 1 ea PO DAILY 10/05/17 10/12/24 History amlodipine 5 mg tablet 10 mg PO DAILY bp 06/19/18 10/13/24 History fluticasone propionate 50 15.8 ml intranasal DAILY PRN nasal 06/19/18 10/13/24 History mcg/actuation nasal congestion spray,suspension (24 Hour Allergy Relief) hydrocodone 10 mg-acetaminophen 1 ea PO Q6H PRN PRN Pain 06/19/18 10/13/24 History 300 mg tablet (Vicodin HP) gabapentin 100 mg capsule 600 mg PO TID pain 10/24/19 10/12/24 History potassium chloride 10 mEq 10 meq PO DAILY 10/24/19 10/12/24 History tablet,extended release(part/cryst) coenzyme Q10 100 mg capsule 100 mg PO DAILY 03/22/21 10/12/24 History (CoQ-10) metformin 1,000 mg tablet 1,000 mg PO BID 03/22/21 10/12/24 History mvhqs-f-lpxeogbgcsxif 400 unit 400 unit PO BID PRN (Drug) 09/07/22 10/12/24 History tablet (Beano) Ingestion atorvastatin 10 mg tablet 10 mg PO QHS 09/07/22 10/12/24 History levothyroxine 75 mcg tablet 75 mcg PO SUTH 09/07/22 10/12/24 History lisinopril 40 mg tablet 40 mg PO BID 09/07/22 10/12/24 History rivaroxaban 20 mg tablet (Xarelto) 20 mg PO DAILY 09/07/22 10/09/24 History semaglutide 2 mg/dose (8 mg/3 mL) 2 mg subcut WE 09/07/22 10/01/24 History subcutaneous pen injector (Ozempic) Allergy/AdvReac Type Severity Reaction Status Date / Time No Known Allergies Allergy Verified 10/13/24 10:12 Surgical History Hx laparoscopic cholecystectomy Hx of prostatectomy Hx of surgical procedure History of surgery Hx of thumb surgery Hx of surgical procedure Hx of surgical procedure History of bilateral carpal tunnel release Social History Smoking Status: Never smoker Review of Systems (Anesthesia) ROS Narrative System reviewed and no additional complaints, except as documented.
--- NOTE | 2024-10-13 10:40 | RAD_ITS ---
PROCEDURE: FLUOR GUIDANCE FOR SPINE INJ 10/13/2024 REASON FOR EXAM: BLOCK, CAUDAL TECHNIQUE: FLUOR GUIDANCE FOR SPINE INJ Fluoroscopy time: 5.2 seconds. Radiation dose: 1.36 mGy FINDINGS: 2 fluoroscopic spot images demonstrate needle approaching the sacrum Other findings: Other: RAD/Fluor Guidance for Spine Inj IMPRESSION: Fluoroscopic guidance provided for caudal block. For complete details, see the operative report. Reading Location: [facility]
[2024-10-13] MEDS: Lidocaine 1% (5 ml sdv) 5 ML Vial (10:48)
[2024-10-13] MEDS: 0.9% Normal Saline (Pres. free 10 ML Vial (10:49)
--- NOTE | 2024-10-13 10:58 | PCM.POST.ANE ---
Anesthesia: Postop Eval I Current Vital Signs Temperature: 36 F Pulse Rate: 60 Blood Pressure: 105/59 Respiratory Rate: 14 Pulse Ox: 98 Assessment Airway patent: Yes Spontaneous unlabored respirations: Yes nausea: No Vomiting: No Anesthesia Complication: No Fluid Hydration Crystalloid volume administer (ml): 300 Total IV fluid infused: 300 Progress Note Anesthesia document: Postop Eval 1 completed: Yes
--- NOTE | 2024-10-13 11:05 | PCM.OPRPT ---
Operative Report (Standard) Operative Information Date of Procedure: 10/13/24 Pre-Operative Diagnosis: 1 Post-Operative Diagnosis: 1 Surgery/Procedure Performed: 1 director emergency department: No Type of Anesthesia: Local MAC RN Documented Start/Stop Times: Operation Date: 10/13/24 11:30 Case Time Into Pre-Op 10/13/24 09:50 Anesthesia Start 10/13/24 10:41 Into Room 10/13/24 10:41 Procedure Start 10/13/24 10:47 Procedure End 10/13/24 10:50 Anesthesia End 10/13/24 10:53 Into Recovery 10/13/24 10:53 Out of Room 10/13/24 10:53 Procedure Start Time: 11:06 Procedure Stop Time: 11:06 Select all DRAINS/GRAFTS/IMPLANTS that apply: None Estimated Blood Loss: 1 Specimen collected: No Description of surgery: Pre-Operative Diagnosis: Lumbosacral radiculopathy, lumbosacral degenerative disc disease, lumbosacral spinal stenosis Post-Operative Diagnosis: Lumbosacral radiculopathy, lumbosacral degenerative disc disease, lumbosacral spinal stenosis Surgery/Procedure Performed:: Diagnostic/therapeutic caudal epidural steroid injection under fluoroscopic guidance Type of Anesthesia: MAC Estimated Blood Loss (mL): Minimal DESCRIPTION OF PROCEDURE: History and physical of today was reviewed. Risks and benefits of the procedure were explained. The patient understood and agreed to proceed. Informed consent was obtained. IV inserted per routine protocol. The patient was taken to the operating room and placed in the prone position with a pillow positioned underneath the abdomen. The lower back and tailbone area was prepped and draped in a sterile fashion using iodine x3. Under fluoroscopy guidance on a lateral view, the caudal space was identified. The skin and subcutaneous tissue was anesthetized with approximately 3 mL of 1% lidocaine using a 25-gauge regular needle. Under direct visualization with fluoroscopy, using a 22-gauge 3-1/2-inch spinal needle, the needle was advanced via the skin through the sacral hiatus. The tip of the needle was passed through the sacrococcygeal ligament and advanced to approximately S4 area. After negative aspiration of blood or CSF, a total of 3 mL of contrast was injected to confirm correct placement of the needle as well as cephalad spread. The spread was followed to approximately L5 area. After confirmation on AP as well as lateral view and repeated negative aspiration, a total of 15 mL of preservative-free 0.125% Marcaine with 80 mg of Depo-Medrol was injected easily. The needle was then removed intact. The patient experienced no sign or symptoms of intrathecal or intravascular injection. The patient experienced no paresthesia. The procedure was completed without any apparent difficulty or any complications. The patient appeared to tolerate it well. ASSESSMENT AND PLAN: This is a 79-year-old male with lumbosacral radiculopathy, lumbosacral degenerative disc disease, lumbosacral spinal stenosis status post diagnostic/therapeutic caudal epidural steroid injection, patient will continue his current medications, patient will follow in approximately 2 weeks for reevaluation. Surgical Findings: 1 Complications Complications: No Admit VTE Documentation VTE Present on Admission: No VTE Mechan Device Prophylaxis: None VTE Pharm Prophylaxis ordered?: No
--- NOTE | 2024-10-13 14:11 | POSTOPAN2_ITS ---
Anesthesia Postop Eval I Sum Postop Eval Completion status Anesthesia document: Postop Eval 1 completed: Yes Anesthesia Postop Eval I Summary Anesthesia Postop Eval I Summary: Anesthesia Postop Eval I: Assessment Summary Airway patent Yes 10/13/24 10:59 RETAIL MAINTENANCE [email or web address] Spontaneous unlabored Yes 10/13/24 10:59 RETAIL MAINTENANCE [email or web address] respirations Mental status nausea No 10/13/24 10:59 RETAIL MAINTENANCE [email or web address] Vomiting No 10/13/24 10:59 RETAIL MAINTENANCE [email or web address] Anesthesia Postop Eval I: Fluid Summary Crystalloid volume administer 300 10/13/24 10:59 RETAIL MAINTENANCE [email or web address] (ml) Colloids volume administered ( ml) Blood Product volume administered (ml) Total IV fluid infused 300 10/13/24 10:59 RETAIL MAINTENANCE [email or web address] Anesthesia Postop Eval I: Summary Notes Anesthesia Complication No 10/13/24 10:59 RETAIL MAINTENANCE [email or web address] Anesthesia Complication Comment: Post-operative progress note Anesthesia: Postop Eval II Evaluation Mental status: Awake and Calm Pain Level: 2 nausea: No Vomiting: No Complications Anesthesia Complication: No
--- NOTE | 2024-10-13 14:11 | PCM.POSTANE2 ---
Anesthesia Postop Eval I Sum Postop Eval Completion status Anesthesia document: Postop Eval 1 completed: Yes Anesthesia Postop Eval I Summary Anesthesia Postop Eval I Summary: Anesthesia Postop Eval I: Assessment Summary Airway patent Yes 10/13/24 10:59 [email or web address] [email or web address] Spontaneous unlabored Yes 10/13/24 10:59 [email or web address] [email or web address] [email or web address] respirations Mental status nausea No 10/13/24 10:59 [email or web address] [email or web address] [email or web address] Vomiting No 10/13/24 10:59 [email or web address] [email or web address] Anesthesia Postop Eval I: Fluid Summary Crystalloid volume administer 300 10/13/24 10:59 [email or web address] [email or web address] (ml) Colloids volume administered ( ml) Blood Product volume administered (ml) Total IV fluid infused 300 10/13/24 10:59 [email or web address] [email or web address] Anesthesia Postop Eval I: Summary Notes Anesthesia Complication No 10/13/24 10:59 [email or web address] [email or web address] Anesthesia Complication Comment: Post-operative progress note Anesthesia: Postop Eval II Evaluation Mental status: Awake and Calm Pain Level: 2 nausea: No Vomiting: No Complications Anesthesia Complication: No
--- OUTSIDE RECORDS SUMMARY | 2024-10-13 19:37 | XMS RPT_ITS | CCD ---
Author Organization [facility] Care Team Providers Care Social Work Lecturer Name Role Phone Tara, Eric Unavailable Unavailable Family Physician Unavailable Unavailable Elisa vailable Family Physician Unavailable Unavailable Elisa vailable Tara, Eric Unavailable Unavailable Family Physician Unavailable Unavailable Elisa vailable Family Physician Unavailable Unavailable Elisa vailable Unavailable Primary Care Provider Unavailabl e DR JESSICA MARTINEZ DO Primary Care Physician Jessica Martinez DO Primary Care Provider Boyd Linares DO Unavailable Jessica Martinez DO Primary Care Provider Boyd Linares DO Unavailable Reza Linares DOin G Unavailable Reza Linares DOin G Unavailable Mimi GOMEZ, Nir Primary Care Provider Nir Le MD Primary Care Provider Sunny Farah Unavailable Jessica Martinez Primary Care Provider Avtar Babin MD Unavailable Jessica Martinez Primary Care Provider Nir Le MD Primary Care Provider Nir Le MD Primary Care Provider Padmini BA, Codie Unavailable Unavailable Avtar Babin MD Unavailable SUNNY FARAH MD Unavailable DR JESSICA MARTINEZ DO Primary Care Unavailab NIR Garcia MD Primary Care Unavailable LOWE CORSAGE MAKER-C, MCKAY Attending Unavailable ANGELES TICKET SORTER-EPIC AMBULATORY ANALYST, MEL Milian Attending Unava ilable MARTINEZ DO, DR JESSICA Graham Primary Care Unavailab araseli FARAH MD, SUNNY Swift Attending Unavailable MARTINEZ DO, DR JESSICA Graham Primary Care Unavailab araseli FARAH MD, SUNNY Swift Attending Unavailable MARTINEZ DO, DR JESSICA Graham Primary Care Unavailab JANET Eduardo MD Attending Unavailable MARTINEZ DO, DR JESSICA Graham Primary Care Unavailab le ANGELES TICKET SORTER-EPIC AMBULATORY ANALYST, MEL Milian Attending Unava ilable MARTINEZ , DR JESSICA Graham Primary Care Unavailab araseli FARAH MD, SUNNY Swift Attending Unavailable MIMI GOMEZ, NIR Beauchamp Primary Care Unavailable ANGELES TICKET SORTER-EPIC AMBULATORY ANALYST, MEL D Attending Unava ilable MARTINEZ DO, DR JESSICA Graham Primary Care Unavailab le BRIDGETTE PERKINS-EPIC AMBULATORY ANALYST, MEL Milian Attending Unava ilable MARTINEZ DO, DR JESSICA Graham Primary Care Unavailab Nat GOMEZ, SUNNY Swift Attending Unavailable MARTINEZ , DR JESSICA Graham Primary Care Unavailab araseli Le MD, Nir Primary Care Provider Jessica Martinez DO Primary Care Provider Reji DO Aric A Unavailable NIR LE MD Attending Unavailable MIMI GOMEZ, NIR Beauchamp Primary Care Unavailable MIMI GOMEZ, NIR Beauchamp Primary Care Unavailable NIR LE MD Attending Unavailable Boyd Linares DO Unavailable Boyd Linares DO G Unavailable Nir Burnett MD Primary Care Provider [phone] Sunny Estevez Referring Unavailable Sunny Estevez Attending Unavailable ROSS MCCORMACK Primary Care Unavailable HORTENCIA, NIR Primary Care Unavailable HORTENCIA, NIR Primary Care Unavailable REJIARIC Swift Attending Unavailable HORTENCIA, NIR Primary Care Unavailable REJISHANNONARIC Attending Unavailable HORTENCIA, NIR Primary Care Unavailable REJIARIC Attending Unavailable HORTENCIA, NIR Primary Care Unavailable AVTAR BABIN Attending Unavailable HORTENCIA, NIR Primary Care Unavailable REJIKASEYARIC Attending Unavailable HORTENCIA, NIR Primary Care Unavailable NETAVTAR LOPEZ Attending Unavailable HORTENCIA, NIR Primary Care Unavailable ARIC LINDA Admitting Unavailable ARIC LINDA Attending Unavailable MIMI, NIR Primary Care Unavailable MIMI, NIR Primary Care Unavailable BRUNILDA CRUZ Attending Unavailable MIMI, NIR Primary Care Unavailable MIMI, NIR Primary Care Unavailable NETAVTAR LOPEZ Referring Unavailable MIMI, NIR Primary Care Unavailable MIMI, NIR Primary Care Unavailable CRYSTAL, YENNYANG Referring Unavailable MIMI, NIR Primary Care Unavailable YUSUF TURNER Referring Unavailable MIMI, NIR Primary Care Unavailable KLAUS ESTEVEZ Referring Unavailab le MIMI, NIR Primary Care Unavailable BRUNILDA CRUZ Attending Unavailable MIMI, NIR Primary Care Unavailable MIMI, NIR Primary Care Unavailable CRYSTAL, YENNYANG Referring Unavailable MIMI, NIR Primary Care Unavailable ANGELINE CHOW Referring Unavailable MIMI, NIR Primary Care Unavailable ARIC LINDA A Referring Unavailable MIMI, NIR Primary Care Unavailable Dr. Sunny Estevez MD Attending Provider Dr. Sunny Estevez MD Referring Provider [phone] NIR BURNETT Primary Care Provider Medications Current Medications Medication Drug Class(es) Dates Sig (Normalized) Sig (Original) Unqhw-F-Tqlwuyaobdj se (Beano) 400 unit Tablet (2 sources) Start: 09-07-2022 take 1 tablet by mouth twice daily as needed Dkvnc-I-Tlclxakhyg ase (Beano) 400 unit Tablet Active 400 U PO TWICE A DAY as needed for (Drug) Ingestion September 07, 2022 12:00am Start: 09-07-2022 take 1 tablet by jonathan th twice daily Uuclr-H-Quytdotdlsebz (Beano) 400 unit Tablet Active 400 UNIT PO TWICE A DAY September 07, 2022 12:00am amLODIPine 5 mg oral tablet (20 sources) Dihydropyridine Calcium Channel Ralph Start: 07-30-2023 take 1 tablet by mouth once daily amLODIPine (NORVASC) 5 mg tablet Take 5 mg by mouth once daily. 07/30/2023 Active Start: 09-09-2020 End: 07-05-2023 take 1 tablet by mouth once daily amLODIPine (NORVASC) 5 mg tablet Take 5 mg by mouth once daily. 07/30/2023 Active Start: 06-19-2018 take 2 tablets by mo [facility] once daily Amlodipine 5 MG tablet Active 10 mg PO DAILY June 19, 2018 12:00am bp Start: 06-19-2018 take 10 mg by mouth once daily Amlodipine Active 10 MG PO DAILY June 19, 2018 12:00am Comment on above: Take 5 mg by mouth o nce daily. B Complex Vitamins (vitamin B complex) tablet (9 sources) B Complex Vitamins (vitamin B complex) tablet Take by mouth. Active cholecalciferol 0.125 mg/ml oral solution (20 sources) Vitamin D Start: 10-05-2017 take 5000 [IU] by mouth once daily in the morning Cholecalciferol, Vitamin D3, 125 mcg/mL (5,000 unit/mL) drop Take 5,000 Units by mouth every morning. 10/05/2017 Active Start: 10-05-2017 take 1 capsule by mo [facility] once daily Cholecalciferol, Vitamin D3, 50 mcg (2,000 unit) cap Take 1,000 Units by mouth once daily. 0 10/05/2017 Active Start: 10-05-2017 Cholecalcifero l (Vitamin D3) (Vitamin D3) 2,000 UNIT capsule Active 1000 U PO DAILY October 05, 2017 12:00am take 1 capsule by mo ut every twenty-four hours cholecalciferol (Vitamin D-3) 125 MCG (5000 UT) capsule Take 1 capsule by mouth Every 24 hours. Active Comment on above: Take 1,000 Units by mouth once daily. Take 5,000 Units by mouth every morning. Co Q-10 100 mg oral capsule (1 source) Start: 1 Co Q-10 100 mg oral capsule Dose : 100 mg = 1 cap(s), Oral, Daily, 0 Refill(s) Start Date: 09/09/20 Status: Ordered 0.4 ml enoxaparin sodium 100 mg/ml prefilled syringe (11 sources) Low Molecular Weight Heparin Start: 4 End: 4 inject 0.4 mL by subcutaneous injection once daily enoxaparin (Lovenox) 40 MG/0.4ML solution prefilled syringe Inject 0.4 mL (40 mg) under the skin daily for 7 days. 7 each 0 04/24/2023 05/01/2023 Active Start: 04-24-2023 End: 05-01-2023 enoxaparin (LOVENOX) 40 mg/0 .4 mL Inject 40 mg subcutaneously once daily. For 7 days 0 04/24/2023 05/01/2023 Active Start: 04-24-2023 End: 04-24-2023 inject 40 mg by subcutaneous injection every twenty-four hours 40 mg, SubCUTAneous, Every 24 hours scheduled (Daily), First dose on Sun04/24/23 at 0900, Phase II/On Unit, Indication of Use: Prophylaxis-DVT/PE, Indications: Prophylaxis of Venous Thromboembolism Start: 02-06-2023 End: 02-08-2023 inject 0.8 mL by subcutaneous injection every twelve hours enoxaparin (LOVENOX) 80 mg/0.8 mL Inject 0.8 mL subcutaneously every 12 hours for 2 days. 3.2 mL 0 02/06/2023 02/08/2023 Suspended Comment on above: Inject 0.8 mL subcut aneously every 12 hours for 2 days. Inject 40 mg subcuta neously once daily. For 7 days hydroCHLOROthiazide 25 mg / losartan potassium 100 mg oral tablet (1 source) Thiazide Diuretic, Angiotensin 2 Receptor Ralph Start: 09-10-19 take 1 tablet by mouth once daily hydrochlorothi azide-losartan 25-100 mg oral tablet Dose = 1 tab(s), Oral, qDay, # 30 tab(s), 0 Refill(s) Start Date: 09/09/20 Status: Ordered icosapent ethyl 1000 mg oral capsule (20 sources) Start: 06-06-19 Vascepa 1 g capsule 12/11/2022 Active Start: 06-05-2022 End: 01-07-2024 take 2 capsules by mouth twice daily at mealtime VASCEPA 1 gram capsule Indications: Essential hypertension , Paroxysmal atrial fibrillation (HCC) , Encounter for screening for cardiovascular disorders Take 2 g by mouth two times a day with meals. 06/05/2022 01/07/2024 Discontinued (Other) Start: 09-09-2020 Vascepa 1 g or al capsule 0 Refill(s) Start Date: 09/09/20 Status: Ordered Comment on above: Take 2 g by mouth tw o times a day with meals. Losartan (1 source) Angiotensin 2 Receptor Ralph Start: 3 losartan See Instructions, Oral qDay, 0 Refill(s) Start Date: 11/13/22 Status: Ordered 24 hr metFORMIN hydrochloride 500 mg extended release oral tablet (20 sources) Biguanide Start: take 1 tablet by mouth once daily metFORMIN XR (Glucophage-XR) 500 MG 24 hr tablet Take 500 mg by mouth daily. 03/20/2023 Active Start: 03-20-2023 take 1 tablet by jonathan th twice daily metFORMIN XR (Glucophage-XR) 500 MG 24 hr tablet Take 500 mg by mouth 2 times daily. 03/20/2023 Active Start: 03-20-2023 metFORMIN XR ( Glucophage-XR) 500 MG 24 hr tablet Start: 03-22-2021 take 1 tablet by jonathan th twice daily Metformin 1,000 mg Tablet Active 1000 mg PO TWICE A DAY March 22, 2021 1:00am Start: 09-09-2020 take 2 tablets by mo uth twice daily at mealtime metFORMIN (GLUCOPHAGE) 500 mg tablet Indications: Essential hypertension , Paroxysmal atrial fibrillation (HCC) , Encounter for screening for cardiovascular disorders Take 1,000 mg by mouth two times a day with meals. 09/09/2020 Active Start: 09-09-2020 MetFORMIN (Eqv -Glucophage XR) 500 mg oral tablet, EXTENDED RELEASE Dose : 500 mg = 1 tab(s), Oral, qDay, # 30 tab(s), 0 Refill(s) Start Date: 09/09/20 Status: Ordered Comment on above: Take 500 mg by mouth . Take 1,000 mg by jonathan th two times a day with meals. rivaroxaban 20 mg oral tablet (20 sources) Factor Xa Inhibitor Start: 03-15-2024 take 1 tablet by mouth once daily at dinner rivaroxaban (XARELTO) 20 mg tablet Indications: PAF (paroxysmal atrial fibrillation) (HCC) Take 1 tablet by mouth daily with dinner. 90 tablet 2 05/27/2024 Active Start: 03-15-2024 take 1 tablet by jonathan th once daily Xarelto 20 MG tablet Take 1 tablet (20 mg) by mouth daily. Do not start before March 15, 2024. 03/15/2024 Active Start: 03-15-2024 take 1 tablet by jonathan th once daily Xarelto 20 MG tablet Take 1 tablet (20 mg) by mouth daily. Do not start before March 15, 2024. 03/15/2024 Active Start: 07-05-2022 End: 05-26-2024 take 1 tablet by mouth once daily at dinner rivaroxaban (XARELTO) 20 mg tablet Indications: PAF (paroxysmal atrial fibrillation) (HCC) Take 1 tablet by mouth daily with dinner. 90 tablet 3 01/11/2024 05/26/2024 Discontinued Comment on above: Take 1 tablet by jonathan th once daily. Take 1 tablet by jonathan th daily with dinner. Ozempic (3 sources) Start: 10-16-2022 Ozempic Subcutaneous, 0 Refill(s) Start Date: 10/16/22 Status: Ordered Semaglutide (Ozempic) 2 mg/dose (8 mg/3 mL) Pen Injector (2 sources) Start: 09-07-2022 Semaglutide (Ozempic) 2 mg/dose (8 mg/3 mL) Pen Injector Active 2 mg SC WE September 07, 2022 12:00am Start: 09-07-2022 Semaglutide (O zempic) 2 mg/dose (8 mg/3 mL) Pen Injector Active 4 MG SC EVERY WEEK September 07, 2022 12:00am semaglutide (OZEMPIC) 2 mg/dose (8 mg/3 mL) pen injector (20 sources) Start: 05-24-2022 inject 2 mg by subcutaneous injection every week semaglutide (OZEMPIC) 2 mg/dose (8 mg/3 mL) pen injector Inject 2 mg subcutaneously one time a week. Takes on Wednesdays05/24/2022 Active Start: 05-24-2022 inject 2 mg by subcu taneous injection every week semaglutide (OZEMPIC) 2 mg/dose (8 mg/3 mL) pen injector Inject 2 mg subcutaneously one time a week. Takes on Wednesdays 0 05/24/2022 Active Start: 05-24-2022 inject 2 mg by subcu taneous injection every week semaglutide (OZEMPIC) 2 mg/dose (8 mg/3 mL) pen injector Inject 2 mg subcutaneously one time a week. 0 05/24/2022 Active Start: 05-24-2022 inject 2 mg by subcu taneous injection every week semaglutide (OZEMPIC) 2 mg/dose (8 mg/3 mL) pen injector Inject 2 mg subcutaneously one time a week. 0 05/24/2022 Suspended Comment on above: Inject 2 mg subcutan eously one time a week. Inject 2 mg subcutan eously one time a week. Takes on Wednesdays Semaglutide, 2 MG/DOSE, (Ozempic, 2 MG/DOSE,) 8 MG/3ML solution pen-injector (20 sources) Start: 05-24-2022 Semaglutide, 2 MG/DOSE, (Ozempic, 2 MG/DOSE,) 8 MG/3ML solution pen-injector Inject under the skin. Wednesdays05/24/2022 Active Start: 05-24-2022 Semaglutide, 2 MG/DOSE, (Ozempic, 2 MG/DOSE,) 8 MG/3ML solution pen-injector Inject under the skin. 05/24/2022 Active Start: 05-24-2022 Semaglutide, 2 MG/DOSE, (Ozempic, 2 MG/DOSE,) 8 MG/3ML solution pen-injector Inject under the skin. 0 05/24/2022 Active sotalol hydrochloride 240 mg oral tablet (20 sources) Antiarrhythmic Start: 06-30-2023 End: 07-05-2023 take 1 tablet by mouth every twelve hours 240 mg, Oral, Every 12 hours, First dose on 06/30/23 at 1930, Please refer to [facility] article Tikosyn (Dofetilide) and Sotalol (Betapace AF) Administration for required ECG monitoring and documentation. Start: 04-23-2023 End: 04-24-2023 take 1 tablet by mouth every twelve hours 240 mg, Oral, Every 12 hours, First dose on Sun04/23/23 at 1815, Recovery & On Unit, Please refer to [facility] article Tikosyn (Dofetilide) and Sotalol (Betapace AF) Administration for required ECG monitoring and documentation. Start: 04-06-2023 End: 05-06-2024 take 1 tablet by mouth every twelve hours sotalol (BETAPACE) 240 mg tablet Take 1 tablet by mouth every 12 hours. 180 tablet 1 05/06/2024 Active Comment on above: Take 1 tablet by jonathan th every 12 hours. sulfamethoxazole 800 mg / trimethoprim 160 mg oral tablet (6 sources) Dihydrofolate Reductase Inhibitor Antibacterial, Sulfonamide Antimicrobial Start: 04-24-19 End: 05-08-19 24 take 1 tablet by mouth once daily sulfamethoxazole -trimethoprim (Bactrim DS) 800-160 MG tablet Take 1 tablet by mouth daily for 14 days. 14 tablet 0 04/24/2023 05/08/2023 Active Comment on above: Take 1 tablet by jonathan th once daily. ubidecarenone 100 mg oral capsule (2 sources) Start: 03-22-20 Coenzyme Q10 (Coq-10) 100 mg Capsule Active 100 mg PO DAILY March 22, 2021 1:00am Vitamin B Complex (1 source) Start: 10-06-19 18 Vitamin B Complex Active 1 EACH PO DAILY October 05, 2017 12:00am Vitamin B Complex 1 EACH capsule (1 source) Start: 10-06-19 18 Vitamin B Complex 1 EACH capsule Active 1 NMA PO DAILY October 05, 2017 12:00am VITAMIN B COMPLEX ORAL (20 sources) Start: 10-06-19 18 take 1 tablet by mouth once daily VITAMIN B COMPLEX ORAL Take 1 tablet by mouth once daily. 10/05/2017 Active Start: 10-05-2017 take 1 tablet by jonathan th once daily VITAMIN B COMPLEX ORAL Take 1 tablet by mouth once daily. 0 10/05/2017 Active Start: 10-05-2017 VITAMIN B COMP MEGHAN ORAL Take by mouth once daily. 0 10/05/2017 Active Start: 10-05-2017 VITAMIN B COMP MEGHAN ORAL Take by mouth once daily. 0 10/05/2017 Suspended Comment on above: Take by mouth once d aily. Take 1 tablet by jonathan th once daily. Vitamin B Complex oral capsule (4 sources) Start: 09-09-2020 take 1 capsule by mouth once daily Vitamin B Complex oral capsule Dose = 1 cap(s), Oral, Daily, 0 Refill(s) Start Date: 6/17/21 Status: Ordered Vitamin D3 (4 sources) Start: 09-09-2020 Vitamin D3 Dose : 1,000 unit(s) = 1 tab(s), Oral, Daily, 0 Refill(s) Start Date: 09/09/20 Status: Ordered Completed/Discontinued Medications Medication Drug Class(es) Dates Sig (Normalized) Sig (Original) acetaminophen 500 mg oral tablet (11 sources) Start: 03-10-2024 End: 03-10-2024 1,000 mg, Oral, Once, On Sun03/10/24 at 0615, For 1 dose, Preprocedure, Administer 60 minutes prior to surgery. Start: 06-30-2023 End: 07-05-2023 take 1 tablet by mouth every six hours as needed for pain and fever acetaminophen (Tylenol) tablet 650 mg Start: 04-23-2023 End: 04-24-2023 take 1 tablet by mouth every eight hours 1,000 mg, Oral, Every 8 hours, First dose on Sun04/23/23 at 2300, Phase II/On Unit Start: 02-09-2023 take 3 tablets by mo [facility] every six hours as needed acetaminophen (TYLENOL) 325 mg tablet Take 3 tablets by mouth every 6 hours as needed for pain. 0 02/09/2023 Active Comment on above: Take 3 tablets by mo ut every 6 hours as needed for pain. acetaminophen 325 mg / HYDROcodone bitartrate 5 mg oral tablet (20 sources) Opioid Agonist Start: End: take 1 tablet by mouth every six hours as needed for pain HYDROcodone-acetaminop hen ([place]) 5-325 MG tablet Indications: Erectile dysfunction after radical prostatectomy , Stress incontinence, male Take 1 tablet by mouth every 6 hours as needed for severe pain (7-10) for up to 3 days. 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 10 tablet 0 07/05/2023 07/08/2023 Active Start: 06-30-2023 End: 07-05-2023 take 1 tablet by mouth every six hours as needed for pain and pain HYDROcodone-acetaminophen ([place]) 5-325 MG per tablet 1 tablet Start: 03-02-2023 End: 07-05-2023 HYDROcodone-acetaminophen ([place]) 7.5-325 MG tablet Start: 01-29-2023 take 1 tablet by jonathan th every six hours as needed HYDROcodone-Acetaminophen (NORCO) 7.5-32 5 mg per tablet Take 1 tablet by mouth every 6 hours as needed. 01/29/2023 Active Start: 01-29-2023 HYDROcodone-Ac etaminophen (NORCO) 7.5-325 mg per tablet Start: 06-27-2022 take 1 tablet by jonathan th every six hours HYDROcodone-Acetaminophen (NORCO) 10-325 mg per tablet Indications: Essential hypertension , Paroxysmal atrial fibrillation (HCC) , Encounter for screening for cardiovascular disorders Take 1 tablet by mouth every 6 hours. 0 06/27/2022 Suspended Start: 06-27-2022 HYDROcodone-Ac etaminophen (NORCO) 10-325 mg per tablet Start: 06-19-2018 take 10-300 mg by mo [facility] every six hours as needed Hydrocodone-Acetaminophen (Vicodin Hp 10-300 Mg Tablet) 1 EACH tablet Active 1 NMA PO EVERY 6 HOURS NEEDED as needed for Pain June 19, 2018 12:00am Comment on above: Take 1 tablet by jonathan th every 6 hours. Take 1 tablet by jonathan th every 6 hours as needed. acetaminophen 325 mg / oxyCODONE hydrochloride 5 mg oral tablet (10 sources) Opioid Agonist Start: 4 End: take 1 tablet by mouth every six hours as needed for pain oxyCODONE-acetaminophe n (Percocet) 5-325 MG tablet Indications: Erectile dysfunction after radical prostatectomy , Stress incontinence, male Take 1 tablet by mouth every 6 hours as needed for severe pain (7-10) for up to 3 days. 12 tablet 03/10/2024 03/10/2024 Discontinued (Stop taking at discharge) Start: 04-24-2023 End: 05-02-2023 take 1 tablet by mouth every six hours as needed for pain oxyCODONE-acetaminophen (Percocet) 5-325 MG tablet Indications: Post-operative state Take 1 tablet by mouth every 6 hours as needed for severe pain (7-10) for up to 5 days. 15 tablet 0 04/27/2023 05/02/2023 Active Comment on above: Take 1 tablet by jonathan th every 6 hours as needed. ALPRAZolam 0.25 mg disintegrating oral tablet (4 sources) Benzodiazepine Start: 03-10-20 End: 03-10-20 take 0.25 mg by mouth once as needed for anxiety 0.25 mg, Oral, Once PRN, anxiety, Starting on Sun03/10/24 at 0609, For 1 dose, Preprocedure, Please do not administer prior to obtaining consent and / or history and physical. Start: 04-23-2023 End: 04-23-2023 ALPRAZolam (Xanax) disintegr ating tablet 0.25 mg amitriptyline hydrochloride 50 mg oral tablet (20 sources) Tricyclic Antidepressant Start: 06-30-2023 End: 07-05-2023 take 100 mg by mouth once daily 100 mg, Oral, Nightly, First dose on 06/30/23 at 2100 Start: 04-23-2023 End: 04-24-2023 take 100 mg by mouth once daily 100 mg, Oral, Nightly, First dose on 04/23/23 at 2100, Recovery & On Unit Start: 10-05-2017 take 1 tablet by jonathan th at bedtime Amitriptyline 100 MG tablet Active 100 mg PO AT BEDTIME October 05, 2017 12:00am Comment on above: Take 100 mg by mouth daily at bedtime. amoxicillin 875 mg / clavulanate 125 mg oral tablet (9 sources) Penicillin-class Antibacterial Start: 07-05-2023 End: 07-05-2023 amoxicillin-clavula jasmyn (Augmentin) 875-125 MG per tablet 1 tablet Start: 07-05-2023 End: 07-20-2023 amoxicillin-clavulanate (Aug mentin) 875-125 MG tablet Take 1 tablet by mouth in the morning and 1 tablet before bedtime. Do all this for 15 days. First dose before bed on 07/04, last doses on 07/18.. 29 tablet 0 07/05/2023 07/20/2023 Active atorvastatin 20 mg oral tablet (20 sources) HMG-CoA Reductase Inhibitor Start: 06-30-2023 End: 07-05-2023 take 10 mg by mouth once daily 10 mg, Oral, Nightly, First dose on 06/30/23 at 2100 Start: 09-09-2020 End: 04-24-2023 take 1 tablet by mouth at bedtime Atorvastatin 10 mg Tablet Active 10 mg PO AT BEDTIME September 07, 2022 12:00am Comment on above: Take 10 mg by mouth once daily. Take 10 mg by mouth daily at bedtime. bisacodyl 10 mg rectal suppository (2 sources) Stimulant Laxative Start: 04-24-19 End: 04-24-19 take 1 dose rectal route every twenty-four hours for constipation 10 mg, Rectal, Daily, First dose on Sun04/24/23 at 0900, Phase II/On Unit, 1st line for treatment of constipation - give scheduled if no bowel movement in past 24 hours. calcium chloride 0.0014 meq/ml / potassium chloride 0.004 meq/ml / sodium chloride 0.103 meq/ml / sodium lactate 0.028 meq/ml injectable solution (6 sources) Start: 03-10-20 End: 03-10-20 take 125 mL intravenously every hour 125 mL/hr, IntraVENous, Continuous, Starting on Sun03/10/24 at 1245, Recovery (only) Start: 04-23-2023 End: 04-24-2023 lactated Ringer's (LR) infus ion ceFAZolin (Ancef) 1,000 mg in sodium chloride 0.9 % 50 mL IVPB (2 sources) Start: 04-23-2023 End: 04-24-2023 take 1000 mg intravenously every eight hours 1,000 mg, IntraVENous, at 100 mL/hr, Administer over 30 Minutes, Every 8 hours, First dose on Sun04/23/23 at 2200, For 3 doses, Recovery & On Unit, Mini-Bag Plus bag, Suspected Indication (Select all that apply): Surgical Prophylaxis cholecalciferol 9.52 unt/ml / glucose 357 mg/ml oral gel (4 sources) Vitamin D Start: 03-10-2024 End: 03-10-2024 15 g, Oral, As needed, low blood sugar, Starting on Sun03/10/24 at 0609, Preprocedure, If blood glucose less than 50 mg/dL and patient ALERT and NOT NPO, give 2 tubes glucose gel. If blood glucose less than 70 mg/dL and patient ALERT and NOT NPO, give 1 tube glucose gel. Repeat blood glucose in 15 minutes. If blood glucose is less than 70 mg/dL, repeat treatment and recheck blood glucose in 15 minutes x2 and notify provider. Start: 04-23-2023 End: 04-24-2023 glucose oral gel 15 g 200 ml ciprofloxacin 2 mg/ml injection (3 sources) Quinolone Antimicrobial Start: 06-30-2023 End: 07-01-2023 ciprofloxacin (Cipro) IVPB 400 mg Start: 11-13-2022 End: 11-15-2022 Cipro 500 mg oral tablet Dos e : 500 mg = 1 tab(s), Oral, q12h, To start night before procedure, X 2 day(s), # 3 tab(s), 0 Refill(s), 11/15/22 11:52:00 AM EDT, Pharmacy: [id number], Elevated PSA, 172.7, cm, 11/13/22 11:38:00 EDT, Height, 97.2, kg, 11/13/22 11:38:00 EDT, Dosing Weight Start Date: 11/13/22 Stop Date: 11/15/22 Status: Ordered 1 ml diphenhydrAMINE hydrochloride 50 mg/ml cartridge (2 sources) Histamine-1 Receptor Antagonist Start: 03-10-2024 End: 03-10-2024 12.5 mg, IntraVENous, Once PRN, itching, Starting on Sun03/10/24 at 1235, For 1 dose, Recovery (only) docusate sodium 100 mg oral capsule (12 sources) Start: 03-10-2024 End: 04-17-2024 take 1 capsule by mouth twice daily in the evening docusate sodium (Colace) 100 MG capsule Take 1 capsule (100 mg) by mouth 2 times daily for 5 days. 10 capsule 03/10/2024 3:21 PM EST 03/10/2024 04/17/2024 Discontinued Start: 04-24-2023 End: 05-04-2023 take 1 capsule by mouth once daily docusate sodium (COLACE) 100 mg capsule Take 100 mg by mouth once daily. 0 04/24/2023 05/04/2023 Active Start: 04-23-2023 End: 05-04-2023 take 1 capsule by mouth twice daily docusate sodium (Colace) 100 MG capsule Take 1 capsule (100 mg) by mouth 2 times daily for 10 days. 20 capsule 0 04/24/2023 05/04/2023 Active Start: 02-09-2023 End: 02-14-2023 take 1 capsule by mouth twice daily docusate sodium (COLACE) 100 mg capsule Take 1 capsule by mouth two times a day for 5 days. 10 capsule 0 02/09/2023 02/14/2023 Active Comment on above: Take 1 capsule by mo uth two times a day for 5 days. Take 100 mg by mouth once daily. docusate sodium 50 mg / sennosides, snf 8.6 mg oral tablet (6 sources) Start: 07-05-2023 End: 07-10-2023 take 2 tablets by mouth once daily senna-docusate sodium (Senokot-S) 8.6-50 MG tablet Take 2 tablets by mouth Nightly for 5 days. Skip if having diarrhea. 10 tablet 0 07/05/2023 07/10/2023 Start: 07-03-2023 End: 07-05-2023 senna-docusate sodium (Senok ot-S) 8.6-50 MG tablet 2 tablet famotidine 20 mg oral tablet (2 sources) Histamine-2 Receptor Antagonist Start: 04-23-2023 End: 04-23-2023 famotidine (Pepcid) tablet 20 mg 2 ml fentaNYL 0.05 mg/ml injection (6 sources) Opioid Agonist Start: 03-10-2024 End: 03-10-2024 50 mcg, IntraVENous, Every 5 min PRN, severe pain (7-10), Starting on 03/10/24 at 1235, For 3 doses, Recovery (only), Phase I and Phase II- Initial therapy for severe pain (7-10). Restricted to a 90 minute time frame starting when the patient can verbally state their pain score. If after 2 doses the pain score does not decrease by more than one point, then call the provider. If oral meds are utilized, do not return to initial therapy medications. Start: 03-10-2024 End: 03-10-2024 25 mcg, IntraVENous, Every 5 min PRN, moderate pain (4-6), Starting on 03/10/24 at 1235, For 3 doses, Recovery (only), Phase I and Phase II- Initial therapy for moderate pain (4-6). Restricted to a 90 minute time frame starting when the patient can verbally state their pain score. If after 2 doses the pain score does not decrease by more than one point, then call the provider. If oral meds are utilized, do not return to initial therapy medications. Start: 07-02-2023 End: 07-02-2023 fentaNYL (Sublimaze) injecti on fluticasone propionate 0.05 mg/actuat metered dose nasal spray (20 sources) Corticosteroid Start: 06-30-2023 End: 07-05-2023 1 spray, Each Nostril, Daily, First dose on 06/30/23 at 1930, Shake gently. Before first use, prime pump (press 6 times until fine spray appears). After use, clean tip and replace cap. Start: 04-23-2023 End: 04-24-2023 1 spray, Each Nostril, Daily , First dose on Sun04/23/23 at 1815, Recovery & On Unit, Shake gently. Before first use, prime pump (press 6 times until fine spray appears). After use, clean tip and replace cap. Start: 08-03-2022 fluticasone (F lonase) 50 MCG/ACT nasal spray 08/03/2022 Active Start: 09-09-2020 fluticasone (F LONASE) 50 mcg/actuation nasal spray Indications: Essential hypertension , Paroxysmal atrial fibrillation (HCC) , Encounter for screening for cardiovascular disorders Use 1 [place] in each nostril as needed. 09/09/2020 Active Start: 09-09-2020 take 1 spray(s) nasa l route once daily fluticasone (FLONASE) 50 mcg/actuation nasal spray Indications: Essential hypertension , Paroxysmal atrial fibrillation (HCC) , Encounter for screening for cardiovascular disorders Use 1 [place] in each nostril once daily. 0 09/09/2020 Active Start: 09-09-2020 fluticasone (F LONASE) 50 mcg/actuation nasal spray Start: 09-09-2020 take 1 dose nasal ro [place] once daily in the morning fluticasone proprionate NASAL 50 mcg/ spray Dose = 2 spray(s), Nostril, each, qAM, 0 Refill(s) Start Date: 09/09/20 Status: Ordered Start: 06-19-2018 Fluticasone Pr opionate (24 Hour Allergy Relief) 15.8 ML spray,suspension Active 15.8 mL INTRANASAL DAILY as needed for nasal congestion June 19, 2018 12:00am Comment on above: Use 1 [place] in each nostril once daily. Use 1 [place] in each nostril as needed. gabapentin 300 mg oral capsule (20 sources) Anti-epileptic Agent Start: 06-30-2023 End: 07-05-2023 gabapentin (Neurontin) capsule 300 mg Start: 04-23-2023 End: 04-24-2023 take 600 mg by mouth three times daily 600 mg, Oral, 3 times daily, First dose on Sun04/23/23 at 2100, Recovery & On Unit Start: 04-27-2022 take 1 tablet by jonathan th three times daily gabapentin (NEURONTIN) 600 mg tablet Indications: Essential hypertension , Paroxysmal atrial fibrillation (HCC) , Encounter for screening for cardiovascular disorders Take 600 mg by mouth three times a day. 04/27/2022 Active Start: 09-09-2020 gabapentin (Ne urontin) 600 MG tablet Start: 10-24-2019 Gabapentin 100 MG capsule Active 600 mg PO THREE TIMES A DAY October 24, 2019 12:00am pain Start: 10-24-2019 take 600 mg by mouth three times daily Gabapentin Active 600 MG PO THREE TIMES A DAY October 24, 2019 12:00am Comment on above: Take 600 mg by mouth four times daily. Take 600 mg by mouth three times a day. glucagon (rdna) 1 mg injection (4 sources) Antihypoglycemic Agent Start: 03-10-2024 End: 03-10-2024 1 mg, IntraMUSCular, PRN, low blood sugar, Blood glucose less than 70 mg/dL and patient NOT ALERT or NPO and does not have IV access., Starting on Sun03/10/24 at 0609, Preprocedure, After administration, attempt intravenous access and start D5W at 100 mL/hr. Repeat blood glucose in 15 minutes x2 and notify provider. Start: 04-23-2023 End: 04-24-2023 glucagon (human recombinant) injection 1 mg 150 ml glucose 50 mg/ml injection (8 sources) Start: 03-10-2024 End: 03-10-2024 12.5 g, IntraVENous, PRN, lo w blood sugar, Blood glucose less than 70 mg/dL and patient NOT ALERT or NPO., Starting on Sun03/10/24 at 0609, Preprocedure, If patient does not respond within 5 minutes, repeat dose x1. Start D5W at 100 mL/hour until ordering provider can be reached. Repeat blood glucose in 15 minutes. If blood glucose is less than 70 mg/dL, repeat treatment and recheck blood glucose in 15 minutes x2. If using Glucostabilizer, dose as instructed per system. Start: 03-10-2024 End: 03-10-2024 100 mL/hr, IntraVENous, PRN, Blood sugar less than 70mg/dL, Starting on Sun03/10/24 at 0609, Preprocedure, Start infusion following administration of dextrose 50% or glucagon. Start: 04-23-2023 End: 04-24-2023 dextrose 50 % solution 12.5 g Start: 04-23-2023 End: 04-24-2023 dextrose 5 % infusion 0.5 ml heparin sodium, porcine 65433 unt/ml prefilled syringe (2 sources) Unfractionated Heparin, Anti-coagulant Start: 04-23-2023 End: 04-23-2023 heparin injection 5,000 Units 1 ml hydrALAZINE hydrochloride 20 mg/ml injection (2 sources) Arteriolar Vasodilator Start: 06-30-2023 End: 07-05-2023 take 5 mg intravenously every four hours as needed for hypertension 5 mg, IntraVENous, Every 4 hours PRN, high blood pressure, give if sbp >165mmg, Starting on 06/30/23 at 0620 1 ml HYDROmorphone hydrochloride 1 mg/ml cartridge (2 sources) Opioid Agonist Start: 04-27-2023 End: 04-27-2023 HYDROmorphone (Dilaudid) injection 1 mg Start: 04-27-2023 End: 04-27-2023 HYDROmorphone (Dilaudid) inj ection 1 mg insulin lispro 100 unt/ml injectable solution (2 sources) Insulin Analog Start: 03-10-2024 End: 03-10-2024 0-12 Units, SubCUTAneous, PRN, high blood sugar, Surgery patient, Starting on 03/10/24 at 0609, For 3 doses, Preprocedure, Corrective Low Dose Algorithm Glucose: Dose: 70-180 No Insulin 181-240 4 Unit 241-300 6 Units 301-350 8 Units 351-400 10 Units Over 400 12 Units and notify physician Insulin Lispro (Humalog) injection 0-12 Units (2 sources) Start: 04-23-2023 End: 04-24-2023 Insulin Lispro (Humalog) injection 0-12 Units iopamidol (Isovue-370) 76 % injection 75 mL (4 sources) Start: 07-19-2023 End: 07-19-2023 iopamidol (Isovue-370) 76 % injection 75 mL Start: 07-04-2023 End: 07-04-2023 iopamidol (Isovue-370) 76 % injection 75 mL labetalol (Normodyne,Trandate) injection 5 mg (2 sources) Start: 03-10-2024 End: 03-10-2024 labetalol (Normodyne,Trandate) injection 5 mg levothyroxine sodium 0.1 mg oral tablet (20 sources) l-Thy roxin e Start: 07-01-2023 End: 07-05-2023 take 50 ug by mouth once daily before breakfast 50 mcg, Oral, Daily before breakfast, First dose on 07/01/23 at 0600, Tube feeding (TF) interaction, obtain physician order to manage, recommend holding TF for 30 minutes before and after dose. Start: 09-07-2022 Levothyroxine 75 mcg Tablet Active 75 ug PO [facility] September 07, 2022 12:00am Start: 09-09-2020 levothyroxine 50 mcg (0.05 mg) oral tablet Dose : 50 mcg = 1 tab(s), Oral, qDay, # 30 tab(s), 0 Refill(s) Start Date: 09/09/20 Status: Ordered Start: 10-05-2017 End: 04-24-2023 Levothyroxine 50 MCG tablet Active 50 ug PO MOTUWEFRSA October 05, 2017 12:00am Comment on above: Take 50 mcg by mouth once daily. Take 50 mcg by mouth daily before breakfast. lisinopril 20 mg oral tablet (20 sources) Angiotensin Converting Enzyme Inhibitor Start: 06-30-2023 End: 07-05-2023 take 40 mg by mouth once daily 40 mg, Oral, Daily, First dose on 06/30/23 at 1930 Start: 04-23-2023 End: 04-24-2023 take 40 mg by mouth once daily 40 mg, Oral, Daily, Fir st dose on Sun04/23/23 at 1815, Recovery & On Unit Start: 01-28-2013 take 1 tablet by jonathan th twice daily Lisinopril 40 mg Tablet Active 40 mg PO TWICE A DAY September 07, 2022 12:00am Comment on above: Take by mouth. Take 40 mg by mouth two times a day. meloxicam 15 mg oral tablet (13 sources) Nonsteroidal Anti-inflammatory Drug Start: 09-29-2013 End: 02-05-2023 meloxicam (MOBIC) 15 mg tablet 2 ml midazolam 1 mg/ml injection (2 sources) Benzodiazepine Start: 07-02-2023 End: 07-02-2023 midazolam (Versed) injection 1 ml morphine sulfate 4 mg/ml cartridge (4 sources) Opioid Agonist Start: 04-26-2023 End: 04-26-2023 morphine injection 4 mg Start: 04-23-2023 End: 04-24-2023 take 2 mg intravenously every four hours as needed 2 mg, IntraVENous, Every 4 hours PRN, breakthrough, Starting on Sun04/23/23 at 2252, Phase II/On Unit, If oral and IV narcotics ordered, use oral first and only use IV if oral is ineffective or cannot take oral. Do Not give oral and IV within 1 hour of each other unless specifically ordered. 1 ml naloxone hydrochloride 0.4 mg/ml injection (4 sources) Opioid Antagonist Start: 06-30-2023 End: 07-05-2023 naloxone (Narcan) injection 0.4 mg Start: 04-23-2023 End: 01-30-2024 naloxone (Narcan) injection 0.4 mg omeprazole 20 mg delayed release oral capsule (20 sources) Proton Pump Inhibitor Start: 03-01-2023 End: 01-02-2024 omeprazole (PriLOSEC) [address] capsule 03/01/2023 01/02/2024 Discontinued (Therapy completed) Comment on above: Take 20 mg by mouth every morning. 2 ml ondansetron 2 mg/ml injection (2 sources) Serotonin-3 Receptor Antagonist Start: 03-10-2024 End: 03-10-2024 4 mg, IntraVENous, Once PRN, nausea, Starting on Sun03/10/24 at 1235, For 1 dose, Recovery (only), Initial antiemetic therapy. ondansetron ODT (Zofran-ODT) disintegrating tablet 4 mg (2 sources) Start: 06-30-2023 End: 07-05-2023 take 1 tablet by mouth every eight hours as needed for nausea and vomiting ondansetron ODT (Zofran-ODT) disintegrating tablet 4 mg oxyCODONE (3 sources) Opioid Agonist Start: 04-23-2023 End: 04-24-2023 take 1 tablet by mouth every four hours as needed for pain oxyCODONE (Roxicodone) immediate release tablet 5 mg Start: 02-09-2023 End: 02-14-2023 take 1 tablet by mouth every six hours as needed oxyCODONE IR (ROXICODONE) 5 mg immediate release tablet Indications: Acute calculous cholecystitis Take 1 tablet by mouth every 6 hours as needed for up to 5 days. 18 tablet 0 02/09/2023 02/14/2023 Active Comment on above: Take 1 tablet by [facility] every 6 hours as needed for up to 5 days. pantoprazole 40 mg delayed release oral tablet (6 sources) Proton Pump Inhibitor Start: End: take 40 mg by mouth once daily before breakfast 40 mg, Oral, Daily before breakfast, First dose on Sun07/01/23 at 0600, Substituted for omeprazole (Prilosec). Do not crush, chew, or split. Start: 04-24-2023 End: 04-24-2023 take 40 mg by mouth once daily before breakfast 40 mg, Oral, Daily before breakfast, First dose on Sun04/24/23 at 0700, Recovery & On Unit, Substituted for omeprazole (Prilosec). Do not crush, chew, or split. Start: 02-22-2023 End: 03-24-2023 take 1 tablet by mouth once daily pantoprazole DR (PROTONIX) 40 mg tablet Take 1 tablet by mouth once daily. 30 tablet 0 02/22/2023 03/24/2023 Active Comment on above: Take 1 tablet by jonathan once daily. piperacillin 3000 mg / tazobactam 375 mg injection (2 sources) Penicillin-class Antibacterial, beta Lactamase Inhibitor Start: 2023 End: 2023 take 3375 mg intravenously every eight hours piperacillin-tazobac brooke (Zosyn) IVPB 3,375 mg polyethylene glycol 3350 91377 mg powder for oral solution (2 sources) Osmotic Laxative Start: 2023 End: 2023 take 17 g by mouth every twenty-four hours as needed for constipation polyethylene glycol (PEG) 3350 (Miralax) packet 17 g microencapsulated potassium chloride 10 meq extended release oral tablet (20 sources) Start: 2020 potassium chloride SR (MICRO-K) 10 mEq CR capsule Indications: Essential hypertension , Paroxysmal atrial fibrillation (HCC) , Encounter for screening for cardiovascular disorders Take 10 mEq by mouth every morning. 09/09/2020 Active Start: 10-24-2019 End: 07-04-2023 potassium chloride CR (Klor- Con M10) ER tablet 30 mEq Comment on above: Take by mouth. Take 10 mEq by mouth once daily. Take 10 mEq by mouth every morning. Promethazine (2 sources) Phenothiazine Start: 04-23-19 End: 04-24-19 take 1 tablet by mouth every six hours as needed for nausea and vomiting promethazine (Phenergan) tablet 12.5 mg 5 ml sodium chloride 9 mg/ml injection (20 sources) Start: 03-10-20 End: 03-10-20 10 mL, IntraVENous, Every 12 hours scheduled (2 times per day), First dose on Sun03/10/24 at 2100, Recovery (only) Start: 03-10-2024 End: 03-10-2024 10 mL, IntraVENous, Every 12 hours scheduled (2 times per day), First dose on Sun03/10/24 at 2100, Recovery (only) Start: 03-10-2024 End: 03-10-2024 500 mL, IntraVENous, at 1,00 0 mL/hr, Administer over 0.5 Hours, PRN, Anti-nausea, Starting on Sun03/10/24 at 1235, Recovery (only), Indications: Anti-nausea Start: 03-10-2024 End: 03-10-2024 10 mL, IntraVENous, Every 12 hours scheduled (2 times per day), First dose on Sun03/10/24 at 0900, Preprocedure Start: 03-10-2024 End: 03-10-2024 take 5-40 mL intravenously every twelve hours 5-40 mL, IntraVENous, Every 12 hours, First dose on Sun03/10/24 at 0615, Preprocedure, For Line Patency: Peripheral IV = 5 mL; Midline or Central Line = 10 mL/lumen. If following IV push medication, administer flush at same rate as the IV push. Flush volume is determined by type of infusion therapy being given. For non-viscous solutions use: Peripheral IV = 5 mL Midline or Central Line = 10 mL/lumen For viscous solutions (i.e. blood components, parenteral nutrition, contrast media, or after obtaining blood sample) use: Peripheral IV = 10 mL Midline or Central Line = 20 mL/lumen Start: 03-10-2024 End: 03-10-2024 take 100 mL intravenously every hour as needed, then take 20 mL intravenously every hour as needed 5-250 mL/hr, IntraVENous, PRN, if patient receiving piggyback infusions and maintenance fluids are not ordered OR KVO fluids to protect IV site / prevent frequent line interruptions / long duration, Starting on Sun03/10/24 at 0609, Preprocedure, For piggyback infusion, administer at same rate as piggyback for a total of 25 mL. Enter 25 mL into dose field and piggyback rate into rate field of order. If piggyback is infusing at a rate less than 100 mL/hr, enter 25 mL into dose field and 100 mL/hr into rate field of order. For KVO fluids, enter rate of 20 mL/hr or less into rate field of order. Start: 03-10-2024 End: 03-10-2024 5-40 mL, IntraVENous, PRN, l ine care, After every IV line use, Starting on Sun03/10/24 at 0609, Preprocedure, For Line Patency: Peripheral IV = 5 mL; Midline or Central Line = 10 mL/lumen. If following IV push medication, administer flush at same rate as the IV push. Flush volume is determined by type of infusion therapy being given. For non-viscous solutions use: Peripheral IV = 5 mL Midline or Central Line = 10 mL/lumen For viscous solutions (i.e. blood components, parenteral nutrition, contrast media, or after obtaining blood sample) use: Peripheral IV = 10 mL Midline or Central Line = 20 mL/lumen Start: 06-30-2023 End: 07-05-2023 take 5-40 mL intravenously every twelve hours sodium chloride 0.9% (NS) flush 5-40 mL Start: 06-30-2023 End: 07-05-2023 sodium chloride 0.9 % infusi on Start: 04-23-2023 End: 04-24-2023 take 75 mL intravenously every hour 75 mL/hr, IntraVENous, Continuous, Starting on Sun04/23/23 at 2300, Phase II/On Unit Start: 04-23-2023 End: 04-24-2023 10 mL, IntraVENous, Every 12 hours scheduled (2 times per day), First dose on Sun04/23/23 at 2300, Phase II/On Unit Start: 04-23-2023 End: 04-24-2023 take 100 mL intravenously every hour as needed, then take 20 mL intravenously every hour as needed 5-250 mL/hr, IntraVENous, PRN, if patient receiving piggyback infusions and maintenance fluids are not ordered OR KVO fluids to protect IV site / prevent frequent line interruptions/ long duration, Starting on Sun04/23/23 at 2252, Phase II/On Unit, For piggyback infusion, administer at same rate as piggyback for a total of 25 mL. Enter 25 mL into dose field and piggyback rate into rate field of order. If piggyback is infusing at a rate less than 100 mL/hr, enter 25 mL into dose field and 100 mL/hr into rate field of order. For KVO fluids, enter rate of 20 mL/hr or less into rate field of order. Start: 04-23-2023 End: 04-24-2023 take 10 mL intravenously once as needed 10 mL, IntraVENous, PRN, line care, Starting on 04/23/23 at 2252, Phase II/On Unit, After every IV line use tamsulosin hydrochloride 0.4 mg oral capsule (20 sources) alpha-Adrenergic Ralph Start: 06-30-2023 End: 07-05-2023 take 0.4 mg by mouth once daily 0.4 mg, Oral, Daily, First dose on 06/30/23 at 1930, Do not crush, chew, or split. Start: 02-16-2023 End: 01-02-2024 tamsulosin (Flomax) 0.4 MG 2 4 hr capsule 02/16/2023 01/02/2024 Discontinued (Therapy completed) Start: 03-22-2021 End: 08-22-2024 take 1 capsule by mouth twice daily Tamsulosin 0.4 mg Capsule Discontinued 0.4 mg PO TWICE A DAY March 22, 2021 1:00am August 22, 2024 4:00pm Comment on above: Take 0.4 mg by mouth two times a day. Vancomycin (4 sources) Glycopeptide Antibacterial Start: 07-01-19 End: 07-05-19 take 1250 mg intravenously every twelve hours vancomycin IVPB 1250 mg in 250 mL NS (premix) Start: 06-30-2023 End: 06-30-2023 vancomycin in NS (Vancocin) IVPB 2,000 mg Problems Active Problems Problem Classification Problem Date Documented Date Episodic/Chronic Anxiety disorders (20 sources) Anxiety; Translations: [Anxiety disorder, unspecified] Onset: 01-26-2023 01-26-2023 Chronic Cancer of prostate (20 sources) Malignant tumor of prostate; Translations: [Malignant neoplasm of prostate] Onset: 01-26-2023 01-13-2023 Chronic Cardiac dysrhythmias (20 sources) Paroxysmal atrial fibrillation; Translations: [Paroxysmal atrial fibrillation] Onset: 01-26-2023 Chronic Chronic kidney disease (20 sources) Chronic kidney disease; Translations: [Chronic kidney disease, unspecified] Onset: 01-26-2023 01-26-2023 Chronic Chronic ulcer of skin (1 source) Pressure ulcer of unspecified ankle, unspecified stage; Translations: [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)] Onset: 01-14-2024 Chronic Coagulation and hemorrhagic disorders (20 sources) Thrombocytopenic disorder; Translations: [Thrombocytopenia, unspecified] Onset: 02-06-2023 03-02-2023 Chronic Conduction disorders (20 sources) Atrioventricular conduction disorder; Translations: [Other specified conduction disorders] Onset: 02-06-2023 02-06-2023 Chronic Diabetes mellitus without complication (20 sources) Type 2 diabetes mellitus; Translations: [Type 2 diabetes mellitus without complications] Onset: 01-26-2023 09-09-2020 Chronic Disorders of lipid metabolism (20 sources) Hyperlipidemia; Translations: [Mixed hyperlipidemia] Onset: 01-26-2023 09-09-2020 Chronic Essential hypertension (20 sources) Hypertensive disorder; Translations: [Essential hypertension] Onset: 01-26-2023 09-09-2020 Chronic Genitourinary symptoms and ill-defined conditions (20 sources) Post-micturition incontinence ; Translations: [Genuine stress incontinence] Onset: 01-04-2024 10-19-2020 Chronic Hyperplasia of prostate (20 sources) Benign prostatic hyperplasia; Translations: [Benign prostatic hyperplasia without lower urinary tract symptoms] Onset: 10-10-2022 10-19-2020 Chronic Osteoarthritis (20 sources) Osteoarthritis of multiple joints ; Translations: [Polyosteoarthritis, unspecified] Onset: 04-03-2023 04-03-2023 Chronic Other liver diseases (20 sources) Cirrhosis of liver; Translations: [Unspecified cirrhosis of liver] Onset: 02-22-2023 Chronic Other liver diseases (2 sources) Unspecified cirrhosis of liver; Translations: [Unspecified cirrhosis of liver] Onset: 04-22-2024 Chronic Other liver diseases (1 source) Fatty (change of) liver, not elsewhere classified; Translations: [Fatty metamorphosis of liver] Onset: 04-22-2024 Chronic Other male genital disorders (20 sources) Erectile dysfunction following radical prostatectomy; Translations: [Erectile dysfunction following radical prostatectomy] Onset: 01-04-2024 11-14-2023 Chronic Other male genital disorders (2 sources) Erectile dysfunction following radical prostatectomy; Translations: [Erectile dysfunction following radical prostatectomy] Onset: 01-04-2024 Chronic Other nervous system disorders (4 sources) Neuropathy 09-09-2020 Chronic Other nervous system disorders (20 sources) Polyneuropathy; Translations: [Polyneuropathy, unspecified] Onset: 01-26-2023 01-26-2023 Chronic Other nervous system disorders (20 sources) Chronic pain; Translations: [Other chronic pain] Onset: 01-26-2023 01-26-2023 Chronic Other nutritional; endocrine; and metabolic disorders (20 sources) Obese class I; Translations: [Obesity, unspecified] Onset: 02-06-2023 02-06-2023 Chronic Other nutritional; endocrine; and metabolic disorders (1 source) Obesity; Translations: [Obesity (BMI 30.0-34.9)] Onset: 04-05-2023 Chronic Other screening for suspected conditions (not mental disorders or infectious disease) (8 sources) Patient encounter status; Translations: [Encounter for screening for cardiovascular disorders] Episodic Residual codes; unclassified (2 sources) Postoperative state; Translations: [Other specified postprocedural states] 04-27-2023 Episodic Spondylosis; intervertebral disc disorders; other back problems (10 sources) Cervical spondylosis; Translations: [Spondylosis without myelopathy or radiculopathy, cervical region] 10-20-2020 Chronic Spondylosis; intervertebral disc disorders; other back problems (6 sources) Lumbosacral radiculopathy; Translations: [Radiculopathy, lumbosacral region] 10-20-2020 Episodic Thyroid disorders (20 sources) Hypothyroidism; Translations: [Hypothyroidism, unspecified] Onset: 01-26-2023 09-09-2020 Chronic Unclassified (1 source) Unknown / UNK(Unknown) Onset: 07-05-2017 Past or Other Problems Problem Classification Problem Date Documented Da te Episodic/Chronic Biliary tract disease (20 sources) Acute cholecystitis; Translations: [Acute cholecystitis] Onset: 02-06-2023 Resolved: 12-24-2023 02-06-2023 Episodic Cardiac dysrhythmias (20 sources) Sinus bradycardia; Translations: [Bradycardia, unspecified] Onset: 02-06-2023 02-06-2023 Episodic Gastritis and duodenitis (1 source) Gastritis, unspecified, without bleeding; Translations: [Irritant gastritis] Onset: 04-22-2024 Episodic Genitourinary symptoms and ill-defined conditions (4 sources) Dysuria; Translations: [Dysuria] Onset: 01-30-2024 02-22-2023 Episodic Other aftercare (20 sources) Long-term current use of anticoagulant; Translations: [terminal worker (current) use of anticoagulants] Onset: 01-26-2023 01-26-2023 Episodic Other aftercare (1 source) terminal worker (current) use of anticoagulants; Translations: [assisted current use of anticoagulant] Onset: 04-05-2023 Episodic Other lower respiratory disease (20 sources) Multiple nodules of lung; Translations: [Other nonspecific abnormal finding of lung field] Onset: 03-02-2023 03-02-2023 Episodic Other lower respiratory disease (20 sources) Solitary nodule of lung; Translations: [Solitary pulmonary nodule] Onset: 02-06-2023 03-02-2023 Episodic Peritonitis and intestinal abscess (20 sources) Male pelvic abscess; Translations: [Peritoneal abscess] Onset: 06-30-2023 07-04-2023 Episodic Residual codes; unclassified (20 sources) Insomnia; Translations: [Insomnia, unspecified] Onset: 01-26-2023 01-26-2023 Episodic Residual codes; unclassified (20 sources) Past history of procedure; Translations: [Personal history of other medical treatment] Onset: 09-25-2022 01-26-2023 Episodic Unclassified (1 source) LUMBAR RADICULOPATHY/26270 25429 G62.9 Onset: 07-05-2017 Results Test Name Value Interpretation Reference Range Facility [facility] 10-07-2024 BANNER Telephone ([id number]) CADE ISLAS ([id number]) 1945 M Date Time Provider Department 10/07/24 BRUNILDA CRUZ [id number] During your visit today, we recorded the following information about you: Janelle Chaudhary LPN 10/07/2024 11:31 AM Signed Patient went into AFIB on October 03, 2024. He remains there. Brunilda Cruz, TICKET SORTER.EPIC AMBULATORY ANALYST 10/07/2024 3:01 PM Signed Check again in 1 week and let me know if he still can fit. Janelle Chaudhary LPN 10/07/2024 3:01 PM Signed Will do. Allergies As of Date: 10/07/2024 (No Known Allergies) Date Reviewed: 07/15/2024 Reviewed by: Louise Chaudhary MA - Fully Assessed Prescriptions as of 10/07/2024 - amLODIPine (NORVASC) 5 mg tablet Take 5 mg by mouth once daily. - rivaroxaban (XARELTO) 20 mg tablet Take 1 tablet by mouth daily with dinner. - sotalol (BETAPACE) 240 mg tablet Take 1 tablet by mouth every 12 hours. - HYDROcodone-Acetaminophen (NORCO) 7.5-325 mg per tablet Take 1 tablet by mouth every 6 hours as needed. - Cholecalciferol, Vitamin D3, 125 mcg/mL (5,000 unit/mL) drop Take 5,000 Units by mouth every morning. - semaglutide (OZEMPIC) 2 mg/dose (8 mg/3 mL) pen injector Inject 2 mg subcutaneously one time a week. Takes on Wednesdays - VITAMIN B COMPLEX ORAL Take 1 tablet by mouth once daily. - amitriptyline (ELAVIL) 100 mg tablet Take 100 mg by mouth daily at bedtime. - atorvastatin (LIPITOR) 10 mg tablet Take 10 mg by mouth daily at bedtime. - fluticasone (FLONASE) 50 mcg/actuation nasal spray Use 1 [place] in each nostril as needed. - gabapentin (NEURONTIN) 600 mg tablet Take 600 mg by mouth three times a day. - levothyroxine (SYNTHROID) 50 mcg tablet Take 50 mcg by mouth daily before breakfast. - lisinopril (ZESTRIL) 40 mg tablet Take 40 mg by mouth two times a day. - metFORMIN (GLUCOPHAGE) 500 mg tablet Take 1,000 mg by mouth two times a day with meals. - potassium chloride SR (MICRO-K) 10 mEq CR capsule Take 10 mEq by mouth every morning. Problem List As Of Date 10/07/2024 Noted Resolved Prostate CA (HCC) [C61] 01/26/2023 Polyneuropathy [G62.9] 01/26/2023 PAF (paroxysmal atrial fibrillation) (HCC) [I48*01/26/2023 Mixed hyperlipidemia [E78.2] 01/26/2023 assisted current use of anticoagulant [Z79.01] 01/26/2023 Insomnia [G47.00] 01/26/2023 Hypothyroidism [E03.9] 01/26/2023 History of stress test [Z92.89] 09/25/2022 DM II (diabetes mellitus, type II) (HCC) [E11.9]01/26/2023 CKD (chronic kidney disease) [N18.9] 01/26/2023 Chronic pain [G89.29] 01/26/2023 BPH (benign prostatic hyperplasia) [N40.0] 01/26/2023 Benign hypertension [I10] 01/26/2023 Anxiety [F41.9] 01/26/2023 Obesity (BMI 30.0-34.9) [E66.811] 02/06/2023 CKD (chronic kidney disease) stage 2, GFR 60-89*02/06/2023 PVC's (premature ventricular contractions) [I49*02/06/2023 AV node dysfunction [I45.89] 02/06/2023 Sinus bradycardia [R00.1] 02/06/2023 Acute gangrenous cholecystitis [K81.0] 02/06/2023 12/24/2023 Chronic renal insufficiency [N18.9] 02/07/2023 Cirrhosis of liver without ascites, unspecified*02/22/2023 Solitary pulmonary nodule [R91.1] 02/06/2023 Diagnosed: 03/02/2023 Thrombocytopenia, unspecified (HCC) [D69.6] 02/06/2023 Diagnosed: 03/02/2023 Lung nodules [R91.8] 03/02/2023 H/O echocardiogram [Z92.89] 03/21/2023 Osteoarthritis of multiple joints [M15.9] 04/03/2023 Pacemaker [Z95.0] 04/04/2023 Encounter Status:Closed by JANELLE CHAUDHARY on 10/07/24 [facility] MR/Ghassan 10-07-2024 MR/SHARMILA [facility] Medical Records Department [address] [place] [address] PAT - Anesthesia 10/07/24 1844 MR#: [id number] Acct: [id number] Name: CADE ISLAS Rep #: [id number] : 1945 79 From: [place] Joseph MD PCP: NIR BURNETT Status:PRE SDC Y Race: C [place] [facility] [place] Diagnosis/Proposed Procedure Planned Operative Procedure(s): BLOCK,CAUDAL Anesthesia History Anesthesia History - workforce manager: Anesthesia History - workforce manager Hx Hospitalization No 10/07/24 10:23 Any Problems With Anesthesia No 10/07/24 10:23 Cholinesterase deficiency No 10/07/24 10:23 You/Your Family Experience No 10/07/24 10:23 fever (hyperthermia) with Relationship Recent Exposure to Contagious No 09/11/22 09:10 Disease Does patient have nerve Yes 10/07/24 10:23 stimulator Patient instructed to have device shut off --Does patient have Pacemaker or ICD? When Was Last Pacemaker Check QUESTION #4 FULL TEXT: You/Your Family Experience fever (hyperthermia) with Anesthesia Last Oral Intake Last Oral intake: Last Oral Intake NPO since Meds taken in AM with sips of water? Meds patient instructed to take am of surgery PONV PONV - workforce manager: PONV - workforce manager Female Yes 10/07/24 10:23 HX of Motion Sickness No 10/07/24 10:23 HX of N/V After Surgery No 10/07/24 10:23 Non-Smoker Yes 10/07/24 10:23 Duration of Surgery greater No 10/07/24 10:23 than 60 minutes Number of Risk Factors 2 10/07/24 10:23 PONV Score Moderate Risk 10/07/24 10:23 Height Weight Height Weight: Anesthesia: Height Weight Height 5 ft 8 in 09/11/22 09:10 Respiratory Assessment Respiratory Assessment - workforce manager: Respiratory Tract Infection Hx - workforce manager Hx Respiratory Tract Infection No 10/07/24 10:23 STOP Sleep Apnea STOP Sleep Apnea - workforce manager: STOP Sleep Apnea - workforce manager Hx Hypertension Yes: CONTROLLED WITH MED 10/07/24 10:23 Hx Sleep Apnea Yes 10/07/24 10:23 CPAP Yes: NO LONGER USES 10/07/24 10:23 BIPAP No 10/07/24 10:23 Do you snore loudly (louder than talking or can be heard Do you often feel tired/ fatigued/ sleepy during daytime? Has anyone observed you stop breathing during sleep? STOP Results Positive 10/07/24 10:23 QUESTION #5 FULL TEXT : Do you snore loudly (louder than talking or can be heard through closed doors)? 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 Specify any problems Hx of Preganancy in last 3 N/A 10/07/24 10:23 Months Nurse Filling Out Transfusion CPOWERS2 10/07/24 10:23 Questions: Date: 10/07/24 10/07/24 10:23 Time: 10:23 10/07/24 10:23 Patient unable to answer at this time (ie. confused, unrespo /Reproduction History /Reproductive History - workforce manager: /Reproductive Hx- workforce manager Hx Now No 10/07/24 10:23 Gestational Age (in weeks): EDC: Hx Hx Para Hx Section SAB No 10/07/24 10:23 [facility] Medical History (Updated 10/07/24 @ 13:01 by Garrett Colvin) History of pacemaker Cancer Heartburn CPAP (continuous positive airway pressure) dependence History of atrial fibrillation History of echocardiogram Cardiology follow-up encounter Wears hearing aid Wears glasses Thyroid disease Diabetes Arthritis High cholesterol Back pain Injury of head and neck Dietary restriction Non-smoker History of pain when walking History of stress test Hypertension History of trigger finger Home Medications ???Medication ???Instructions ???Recorded ???Last Taken ???Type amitriptyline 100 mg tablet 100 mg PO QHS 10/05/17 Unknown His tory cholecalciferol (vitamin D3) 50 1,000 unit PO DAILY 10/05/17 Unkno wn History mcg (2,000 unit) capsule (Vitamin D3) levothyroxine 50 mcg tablet 50 mcg PO MOTUWEFRSA 10/05/1708/24 06:30 History vitamin B complex 1 ea PO DAILY 10/05/17 Unknown His tory amlodipine 5 mg tablet (more content not included)... Normal [facility] Office Visiton 10-07-2024 Follow-up visit [id number] Cade Islas 1945 M Date Provider Department Center 10/07/2024 AVTAR BARCENAS [facility] None Family History Problem Relation Age of Onset Hypertension Paternal Grandfather Cancer Paternal Grandmother Family Status - Relation Status Age at Father Mother Paternal Grandfather Paternal Grandmother Level of Service:19422 NC OFFICE/OUTPATIENT ESTABLISHED MOD MDM 30 MIN Reason for Visit and Comments: Prostate Cancer [309] Follow-up [714167] [facility] Progress Noteon 10-07-2024 Progress Note Avtar Babin MD 10/07/2024 at 11:39 AM Office follow up PATIENT NAME: Cade Islas DATE OF : 1945 TODAY'S DATE: 10/07/2024 CHIEF COMPLAINT: Chief Complaint Patient presents with Prostate Cancer Follow-up Subjective: Mr. Islas is a 79 y.o. male who presents to the office for follow up of prostate cancer He is very pleased with IPP Male sling has not been working well, continence has been getting worse, now using 4 pads daily Continence is reasonable when he is sitting down Review of Systems Gastrointestinal: Negative for abdominal distention and abdominal pain. Genitourinary: Negative for difficulty urinating and frequency. Past Medical History: Medical History[1] Past Surgical History: Surgical History[2] Allergies: Patient has no known allergies. Social History: Social History Socioeconomic History Marital status: Spouse name: Not on file Number of children: Not on file Years of education: Not on file Highest education level: Not on file Occupational History Not on file Tobacco Use Smoking status: Some Days Types: Cigarettes Smokeless tobacco: Never Vaping Use Vaping status: Never Used Substance and Sexual Activity Alcohol use: Not Currently Drug use: Never Sexual activity: Yes Partners: Female Other Topics Concern Not on file Social History Narrative Not on file Social Drivers of Health Financial Resource Strain: Low Risk (06/30/2023) Overall Financial Resource Strain (CARDIA) Difficulty of Paying Living Expenses: Not hard at all Food Insecurity: No Food Insecurity (06/30/2023) Hunger Vital Sign Worried About Running Out of Food in the Last Year: Never true Ran Out of Food in the Last Year: Never true Transportation Needs: No Transportation Needs (06/30/2023) PRAPARE - Transportation Lack of Transportation (Medical): No Lack of Transportation (Non-Medical): No Physical Activity: Insufficiently Active (06/30/2023) Exercise Vital Sign Days of Exercise per Week: 5 days Minutes of Exercise per Session: 20 min Stress: No Stress Concern Present (06/30/2023) [place] [employer] - Occupational Stress Questionnaire Feeling of Stress : Not at all Social Connections: Unknown (06/30/2023) Social Connection and Isolation Panel [NHANES] Frequency of Communication with Friends and Family: More than three times a week Frequency of Social Gatherings with Friends and Family: More than three times a week Attends [employer] Services: Not on file Active Member of Clubs or Organizations: Yes Attends Club or Organization Meetings: 1 to 4 times per year Marital Status: Intimate Partner Violence: Not At Risk (06/30/2023) Humiliation, Afraid, Rape, and Kick questionnaire Fear of Current or Ex-Partner: No Emotionally Abused: No Physically Abused: No Sexually Abused: No Housing Stability: Low Risk (06/30/2023) Housing Stability Vital Sign Unable to Pay for Housing in the Last Year: No Number of Places Lived in the Last Year: 1 Unstable Housing in the Last Year: No Family History: Medications Prior to Admission medications Medication Sig Start Date End Date Taking? Authorizing Provider amitriptyline (Elavil) 100 MG tablet Take 100 mg by mouth Nightly. 03/02/23 Yes Historical Provider, amLODIPine (Norvasc) 5 MG tablet 10/09/22 Yes Historical Provider, atorvastatin (Lipitor) 10 MG tablet 03/09/23 Yes Historical Provider, B Complex Vitamins (vitamin B complex) tablet Take by mouth. Yes Historical Provider, cholecalciferol (Vitamin D-3) 125 MCG (5000 UT) capsule Take 1 capsule by mouth Every 24 hours. Yes Historical Provider, fluticasone (Flonase) 50 MCG/ACT nasal spray 08/03/22 Yes Historical Provider, gabapentin (Neurontin) 600 MG tablet Take 600 mg by mouth 3 times daily. 02/19/23 Yes Historical Provider, HYDROcodone-acetaminophen ([place]) 10-325 MG tablet Take 1 tablet by mouth every 6 hours as needed. Yes Historical Provider, levothyroxine (Synthroid, Levoxyl) 50 MCG tablet 12/11/22 Yes Historical Provider, lisinopril 40 MG tablet 03/27/23 Yes Historical Provider, potassium chloride ER (Micro-K) 10 MEQ ER capsule 01/14/23 Yes Historical Provider, Semaglutide, 2 MG/DOSE, (Ozempic, 2 MG/DOSE,) 8 MG/3ML solution pen-injector Inject under the skin. Wednesdays05/24/22 Yes Historical Provider, sotalol (Betapace) 240 MG tablet every 12 hours. 04/06/23 Yes Historical Provider, Xarelto 20 MG tablet Take 1 tablet (20 mg) by mouth daily. Do not start before March 15, 2024. 03/15/24 Yes Trudy Abdi MD metFORMIN XR (Glucophage-XR) 500 MG 24 hr tablet Take 500 mg by mouth daily. Patient not taking: Reported on 04/17/2024 03/20/23 Historical Provider, Vascepa 1 g capsule 12/11/22 Historical Provider, Vitals: BP 107/67 Pulse 86 Ht 5' 8 (1.727 m) Wt 205 lb (93 kg) BMI 31.17 kg/m? Physical Exam General: alert, appe (more content not included)... Normal [facility] PSA [facility] 10-02-2024 Prostate specific Ag [Mass/Vol] 0.07 ng/mL Normal <2.60 [facility] Comment on above: Order Comment: Speci men Type: BLOOD SPECIMENOrdering Facility: [facility] [place] [facility] [place] Address: [address] [place] [address] Result Comment: PSA, DIAGNOSTIC test methodology was performed using the Siemens chemiluminescent immunoassay method. Results obtained with different assay methods or kits cannot be used interchangeably. Performed By: #### 2 857-1 ####[facility]ORYCLIA [id number] [place] [id number] [place] Ferritin SerPl-mCncon 2024 Ferritin [Mass/Vol] 137.7 ng/mL Normal 24.0-388.0 [facility] Comment on above: Order Comment: Speci men Type: BLOOD SPECIMENOrdering Facility: [facility] Address: [address] [place], [place] [address] Performed By: #### 2 276-4, 41943-5 ####[facility]ORYCLIA [id number] [place] [id number] [place] Iron and Iron binding capaci ty panelon 08-15-2024 Iron [Mass/Vol] 71 ug/dL Normal 65-175 [facility] Comment on above: Order Comment: Speci men Type: BLOOD SPECIMENOrdering Facility: [facility] Address: [address] [place] [address] Result Comment: Marysol ents treated with metal-binding drugs (e.g.deferoxamine) may have depressed iron values, as chelated iron may not properly react in the Siemens iron assay. Performed By: #### 2 276-4, 98498-6 ####[facility]ORYCLIA [id number] [place] [id number] [place] Iron binding capacity [Mass/Vol] 312 ug/dL Normal 221-481 [facility] Comment on above: Order Comment: Speci men Type: BLOOD SPECIMENOrdering Facility: [facility] Address: [address] [place] [address] Performed By: #### 2 276-4, 95051-4 ####[facility]ORYCLIA [id number] [place] [id number] [place] Iron/TIBC [Molar ratio] 22.8 % Normal 22.0-44.0 [facility] Comment on above: Order Comment: Speci men Type: BLOOD SPECIMENOrdering Facility: [facility] Address: [address] [place] [address] Performed By: #### 2 276-4, 62811-7 ####[facility]ORYCLIA [id number] [place] [id number] [place] Comprehensive metabolic 2000 panelon 07-30-2024 Albumin [Mass/Vol] 3.9 g/dL Normal 3.2-5.0 [facility] Comment on above: Order Comment: Speci men Type: BLOOD SPECIMEN Ordering Facility: [facility] Address: [address] [place] [address] Performed By: #### 2 276-4, 89542-1 #### [facility] CLIA [id number] [address] [place] [address] [place] ALP [Catalytic activity/Vol] 188 U/L High 45-117 [facility] Comment on above: Order Comment: Zakiya mina Type: BLOOD SPECIMEN Ordering Facility: [facility] Address: [address] [place] [address] Performed By: #### 2 276-4, 58582-2 #### [facility] CLIA [id number] [address] [place] [address] [place] ALT [Catalytic activity/Vol] 25 U/L Normal 13-61 [facility] Comment on above: Order Comment: Zakiya mina Type: BLOOD SPECIMEN Ordering Facility: [facility]) Address: [address] [place] [address] Result Comment: Resu lts may be falsely depressed after the administration of Sulfasalazine and/or Sulfapyridine. Performed By: #### 2 276-4, 96993-4 #### [facility] CLIA [id number] [address] [place], [place] [id number] [place] Anion gap [Moles/Vol] 5 mmol/L Normal 5-16 [facility] Comment on above: Order Comment: Tracii men Type: BLOOD SPECIMEN Ordering Facility: [facility] Address: [address] [place] [address] Performed By: #### 2 276-4, 01753-9 #### [facility] CLIA [id number] [address] [place], [place] [address] [place] AST [Catalytic activity/Vol] 32 U/L Normal 8-34 [facility] Comment on above: Order Comment: Speci men Type: BLOOD SPECIMEN Ordering Facility: [facility]) Address: [address] [place] [address] Result Comment: Resu lts may be falsely depressed after the administration of Sulfasalazine and/or Sulfapyridine. Performed By: #### 2 276-4, 84622-3 #### [facility] CLIA [id number] [address] [place], [place] [address] [place] Bilirubin [Mass/Vol] 0.6 mg/dL Normal 0.2-1.0 [facility] Comment on above: Order Comment: Speci men Type: BLOOD SPECIMEN Ordering Facility: [facility] Address: [address] [place] [address] Performed By: #### 2 276-4, 26388-3 #### [facility] CLIA [id number] [address] [place], [place] [address] [place] Calcium [Mass/Vol] 9.8 mg/dL Normal 8.5-10.5 [facility] Comment on above: Order Comment: Speci men Type: BLOOD SPECIMEN Ordering Facility: [facility] Address: [address] [place] [address] Performed By: #### 2 276-4, 64946-2 #### [facility] CLIA [id number] [address] [place], [place] [address] [place] Chloride [Moles/Vol] 104 mmol/L Normal 98-107 [facility] Comment on above: Order Comment: Speci men Type: BLOOD SPECIMEN Ordering Facility: [facility] Address: [address] [place] [address] Performed By: #### 2 276-4, 42143-9 #### [facility] CLIA [id number] [address] [place], [place] [address] [place] CO2 [Moles/Vol] 29 mmol/L Normal 21-32 [facility] Comment on above: Order Comment: Speci men Type: BLOOD SPECIMEN Ordering Facility: [facility]) Address: [address] [place] [address] Performed By: #### 2 276-4, 39355-9 #### [facility] CLIA [id number] [address] [place], [place] [address] [place] Creatinine [Mass/Vol] 1.01 mg/dL Normal 0.50-1.40 [facility] Comment on above: Order Comment: Speci leopoldo Type: BLOOD SPECIMEN Ordering Facility: [facility]) Address: [address] [place] [address] Result Comment: Mary[place] ents receiving either N-Acetylcysteine (NAC) or Metamizole prior to venipuncture, may have falsely depressed results. Performed By: #### 2 276-4, 82620-9 #### [facility] CLIA [id number] [address] [place] [address] [place] Creatinine and Glomerular filtration rate.predicted panel (S/P/Bld) 76 mL/min/1.73m??? Normal >=60 [facility] Comment on above: Order Comment: Speci men Type: BLOOD SPECIMEN Ordering Facility: [facility]) Address: [address] [place] [address] Result Comment: Starr mated Glomerular Filtration Rate (eGFR) is calculated using the 2020 CKD-EPI creatinine equation. This equation utilizes serum creatinine, sex, and age as parameters. The creatinine assay has traceable calibration to isotope dilution-mass spectrometry. Refer to KDIGO guidelines for clinical interpretation. In patients with unstable renal function, e.g. those with acute kidney injury, the eGFR may not accurately reflect actual GFR. Performed By: #### 2 276-4, 22419-5 #### [facility] CLIA [id number] [address] [place], [place] [address] [place] Glucose [Mass/Vol] 78 mg/dL Normal 70-100 [facility] Comment on above: Order Comment: Zakiya mina Type: BLOOD SPECIMEN Ordering Facility: [facility] Address: [address] [place] [address] Result Comment: The [place] Diabetes Association (ADA) provides guidance for cutoff values for fasting glucose and random glucose. The ADA defines fasting as no caloric intake for at least 8 hours. Fasting plasma glucose results between 100 to 125 mg/dL indicate increased risk for diabetes (prediabetes). Fasting plasma glucose results greater than or equal to 126 mg/dL meet the criteria for diagnosis of diabetes. In the absence of unequivocal hyperglycemia, results should be confirmed by repeat testing. In a patient with classic symptoms of hyperglycemia or hyperglycemic crisis, random plasma glucose results greater than or equal to 200 mg/dL meet the criteria for diagnosis of diabetes. Reference: Standards of Medical Care in Diabetes 2016, [place] [employer] Association. Diabetes Care. 2016.39(Suppl 1). Results may be falsely elevated after the administration of Sulfapyridine. Results may be falsely depressed after the administration of Sulfasalazine. Performed By: #### 2 276-4, 98602-4 #### [facility] CLIA [id number] [address] [place] [address] [place] Potassium [Moles/Vol] 4.2 mmol/L Normal 3.5-5.1 [facility] Comment on above: Order Comment: Zakiya mina Type: BLOOD SPECIMEN Ordering Facility: [facility] Address: [address] [place] [address] Performed By: #### 2 276-4, 62181-2 #### [facility] CLIA [id number] [address] [place], [place] [id number] [place] Protein [Mass/Vol] 7.1 g/dL Normal 6.0-8.5 [facility] Comment on above: Order Comment: Speci men Type: BLOOD SPECIMEN Ordering Facility: [facility] Address: [address] [place] [address] Performed By: #### 2 276-4, 66416-6 #### [facility] CLIA [id number] [address] [place], [place] [id number] [place] Sodium [Moles/Vol] 138 mmol/L Normal 136-145 [facility] Comment on above: Order Comment: Speci men Type: BLOOD SPECIMEN Ordering Facility: [facility] Address: [address] [place] [address] Performed By: #### 2 276-4, 56709-6 #### [facility] CLIA [id number] [address] [place] [address] [place] Urea nitrogen [Mass/Vol] 14 mg/dL Normal 7-26 [facility] Comment on above: Order Comment: Speci men Type: BLOOD SPECIMEN Ordering Facility: [facility] Address: [address] [place] [address] Performed By: #### 2 276-4, 78472-1 #### [facility] CLIA [id number] [address] [place] [address] [place] HbA1c (Bld)on 07-30-2024 Average glucose Estimated from glycated hemoglobin (Bld) [Mass/Vol] 94 mg/dL Normal [facility] Comment on above: Order Comment: Speci men Type: BLOOD SPECIMENOrdering Facility: [facility] Address: [facility] [place] [address] Result Comment: eAG: (Estimated average glucose) is a calculated value from HgbA1c and is associate financial representative of the average blood glucose level in the last 2-3 month period. Performed By: #### 5 5454-3 ####[facility] [id number] [address] [address] [place] HbA1c (Bld) [Mass fraction] 4.9 % Normal 4.3-5.6 [facility] Comment on above: Order Comment: Speci men Type: BLOOD SPECIMENOrdering Facility: [facility] Address: [address] [address] Result Comment: Kenneth ican Diabetes Association guidelines indicate that patients with HgbA1c in the range 5.7-6.4% are at increased risk for development of diabetes, and intervention by lifestyle modification may be beneficial. HgbA1c greater or equal to 6.5% is considered diagnostic of diabetes. Performed By: #### 5 5454-3 ####[facility] [id number] [place] [address] [place] No Panel Informationon 07-30 IMPRESSION: Coarsened hepatic echotexture, in keeping with cirrhosis. No focal liver lesions. Mild splenomegaly, presumably related to portal hypertension. The visualized hepatoportal vessels are patent with a normal direction of flow. Status post cholecystectomy. Senior Pl Sql Developer: YVAN Transcribe Date/Time: Jul 30 2024 10:00A Dictated by : ELVER ROJAS MD This examination was interpreted and the report reviewed and electronically signed by: ELVER ROJAS MD on Jul 30 2024 10:13AM [facility] Radiology Study observation (narrative) [facility] No Panel InformationOrdered By: [facility] Provider on 07-30-2024 [facility] US ABD LIVER VASCULARon 05-0 US ABD LIVER VASCULAR * * *Final Report* * * DATE OF EXAM: Jul 30 2024 9:57AM U 1233 - US ABD LIVER VASCULAR / PROCEDURE REASON: Cirrhosis * * * * Physician Interpretation * * * * EXAMINATION: COMPLETE ABDOMINAL ULTRASOUND and duplex evaluation of the hepatoportal vessels CLINICAL HISTORY: Cirrhosis TECHNIQUE: Sonography of the abdomen was performed. Images were obtained and stored in a permanent archive. MQ: UAbC_2 COMPARISON: CT scan 06/29/2023 RESULT: Pancreas: Normal sonographic appearance. Portions obscured: Tail Lesions: None Liver: Echotexture: Coarse Echogenicity: Normal Surface contour: Smooth Lesions: None. Biliary: No intrahepatic biliary duct dilation. CBD: 0.4 cm at the hilum. Gallbladder: Prior cholecystectomy - Spleen: Craniocaudal length: 14.2 cm Lesions: None Right Kidney: -Renal length: 12.6 cm -Parenchyma: Normal parenchymal echogenicity. Normal parenchymal thickness. -Collecting system: No hydronephrosis. -Calculus: No echogenic, shadowing calculus. -Lesion: 2.9 cm right lower pole cyst Left Kidney: -Renal length: 12.9 cm -Parenchyma: Normal parenchymal echogenicity. Normal parenchymal thickness. -Collecting system: No hydronephrosis. -Calculus: No echogenic, shadowing calculus. -Lesion: None. Bladder: Normal. IVC: Imaged segment is patent. Abdominal Aorta: Imaged segment is patent. Maximum Diameter: 1.6 cm Ascites: None. HEPATIC VASCULATURE: Portal System: -Splenic Vein: Patent with antegrade flow (towards liver). -Main PV: Patent with antegrade flow (towards liver). Peak velocity - 24 cm/sec -Right posterior PV: Patent with antegrade flow (towards liver). -Right anterior PV: Patent with antegrade flow (towards liver). -Left PV: Patent with antegrade flow (towards liver). -Splenorenal shunt: -Patent Paraumbilical Vein: Hepatic Arterial Supply:. - Main BALL: Normal waveform. PSV: 40 cm/sec. RI 0.58 - Right posterior BALL: Normal waveform. - Right anterior BALL: Normal waveform. - Left BALL: Normal waveform. Hepatic Veins: The middle and left hepatic veins are patent. Right hepatic vein is not visualized. IVC: Patent. IMPRESSION: Coarsened hepatic echotexture, in keeping with cirrhosis. No focal liver lesions. Mild splenomegaly, presumably related to portal hypertension. The visualized hepatoportal vessels are patent with a normal direction of flow. Status post cholecystectomy. Senior Pl Sql Developer: YVAN Transcribe Date/Time: Jul 30 2024 10:00A Dictated by : ELVER ROJAS MD This examination was interpreted and the report reviewed and electronically signed by: ELVER ROJAS MD on Jul 30 2024 10:13AM EST [id number] Normal [facility] US ABDOMEN COMPLETEon 2024 US ABDOMEN COMPLETE * * *Final Report* * * DATE OF EXAM: Jul 30 2024 9:57AM RHU 1040 - US ABDOMEN COMPLETE / PROCEDURE REASON: Cirrhosis * * * * Physician Interpretation * * * * EXAMINATION: COMPLETE ABDOMINAL ULTRASOUND and duplex evaluation of the hepatoportal vessels CLINICAL HISTORY: Cirrhosis TECHNIQUE: Sonography of the abdomen was performed. Images were obtained and stored in a permanent archive. MQ: UAbC_2 COMPARISON: CT scan 06/29/2023 RESULT: Pancreas: Normal sonographic appearance. Portions obscured: Tail Lesions: None Liver: Echotexture: Coarse Echogenicity: Normal Surface contour: Smooth Lesions: None. Biliary: No intrahepatic biliary duct dilation. CBD: 0.4 cm at the hilum. Gallbladder: Prior cholecystectomy - Spleen: Craniocaudal length: 14.2 cm Lesions: None Right Kidney: -Renal length: 12.6 cm -Parenchyma: Normal parenchymal echogenicity. Normal parenchymal thickness. -Collecting system: No hydronephrosis. -Calculus: No echogenic, shadowing calculus. -Lesion: 2.9 cm right lower pole cyst Left Kidney: -Renal length: 12.9 cm -Parenchyma: Normal parenchymal echogenicity. Normal parenchymal thickness. -Collecting system: No hydronephrosis. -Calculus: No echogenic, shadowing calculus. -Lesion: None. Bladder: Normal. IVC: Imaged segment is patent. Abdominal Aorta: Imaged segment is patent. Maximum Diameter: 1.6 cm Ascites: None. HEPATIC VASCULATURE: Portal System: -Splenic Vein: Patent with antegrade flow (towards liver). -Main PV: Patent with antegrade flow (towards liver). Peak velocity - 24 cm/sec -Right posterior PV: Patent with antegrade flow (towards liver). -Right anterior PV: Patent with antegrade flow (towards liver). -Left PV: Patent with antegrade flow (towards liver). -Splenorenal shunt: -Patent Paraumbilical Vein: Hepatic Arterial Supply:. - Main BALL: Normal waveform. PSV: 40 cm/sec. RI 0.58 - Right posterior BALL: Normal waveform. - Right anterior BALL: Normal waveform. - Left BALL: Normal waveform. Hepatic Veins: The middle and left hepatic veins are patent. Right hepatic vein is not visualized. IVC: Patent. IMPRESSION: Coarsened hepatic echotexture, in keeping with cirrhosis. No focal liver lesions. Mild splenomegaly, presumably related to portal hypertension. The visualized hepatoportal vessels are patent with a normal direction of flow. Status post cholecystectomy. Senior Pl Sql Developer: YVAN Transcribe Date/Time: Jul 30 2024 10:00A Dictated by : ELVER ROJAS MD This examination was interpreted and the report reviewed and electronically signed by: ELVER ROJAS MD on Jul 30 2024 10:13AM EST [id number] Normal [facility] US Abdomenon 07-30-2024 * * *Final Report* * * DATE OF EXAM: Jul 30 2024 9:57AM RHU 1040 - US ABDOMEN COMPLETE / PROCEDURE REASON: Cirrhosis * * * * Physician Interpretation * * * * EXAMINATION: COMPLETE ABDOMINAL ULTRASOUND and duplex evaluation of the hepatoportal vessels CLINICAL HISTORY: Cirrhosis TECHNIQUE: Sonography of the abdomen was performed. Images were obtained and stored in a permanent archive. MQ: UAbC_2 COMPARISON: CT scan 06/29/2023 RESULT: Pancreas: Normal sonographic appearance. Portions obscured: Tail Lesions: None Liver: Echotexture: Coarse Echogenicity: Normal Surface contour: Smooth Lesions: None. Biliary: No intrahepatic biliary duct dilation. CBD: 0.4 cm at the hilum. Gallbladder: Prior cholecystectomy - Spleen: Craniocaudal length: 14.2 cm Lesions: None Right Kidney: -Renal length: 12.6 cm -Parenchyma: Normal parenchymal echogenicity. Normal parenchymal thickness. -Collecting system: No hydronephrosis. -Calculus: No echogenic, shadowing calculus. -Lesion: 2.9 cm right lower pole cyst Left Kidney: -Renal length: 12.9 cm -Parenchyma: Normal parenchymal echogenicity. Normal parenchymal thickness. -Collecting system: No hydronephrosis. -Calculus: No echogenic, shadowing calculus. -Lesion: None. Bladder: Normal. IVC: Imaged segment is patent. Abdominal Aorta: Imaged segment is patent. Maximum Diameter: 1.6 cm Ascites: None. HEPATIC VASCULATURE: Portal System: -Splenic Vein: Patent with antegrade flow (towards liver). -Main PV: Patent with antegrade flow (towards liver). Peak velocity - 24 cm/sec -Right posterior PV: Patent with antegrade flow (towards liver). -Right anterior PV: Patent with antegrade flow (towards liver). -Left PV: Patent with antegrade flow (towards liver). -Splenorenal shunt: -Patent Paraumbilical Vein: Hepatic Arterial Supply:. - Main BALL: Normal waveform. PSV: 40 cm/sec. RI 0.58 - Right posterior BALL: Normal waveform. - Right anterior BALL: Normal waveform. - Left BALL: Normal waveform. Hepatic Veins: The middle and left hepatic veins are patent. Right hepatic vein is not visualized. IVC: Patent. [facility] Provider, Tiesha Cannon - 07/30/2024 * * *Final Report* * * DATE OF EXAM: Jul 30 2024 9:57AM RHU 1040 - US ABDOMEN COMPLETE / PROCEDURE REASON: Cirrhosis * * * * Physician Interpretation * * * * EXAMINATION: COMPLETE ABDOMINAL ULTRASOUND and duplex evaluation of the hepatoportal vessels CLINICAL HISTORY: Cirrhosis TECHNIQUE: Sonography of the abdomen was performed. Images were obtained and stored in a permanent archive. MQ: UAbC_2 COMPARISON: CT scan 06/29/2023 RESULT: Pancreas: Normal sonographic appearance. Portions obscured: Tail Lesions: None Liver: Echotexture: Coarse Echogenicity: Normal Surface contour: Smooth Lesions: None. Biliary: No intrahepatic biliary duct dilation. CBD: 0.4 cm at the hilum. Gallbladder: Prior cholecystectomy - Spleen: Craniocaudal length: 14.2 cm Lesions: None Right Kidney: -Renal length: 12.6 cm -Parenchyma: Normal parenchymal echogenicity. Normal parenchymal thickness. -Collecting system: No hydronephrosis. -Calculus: No echogenic, shadowing calculus. -Lesion: 2.9 cm right lower pole cyst Left Kidney: -Renal length: 12.9 cm -Parenchyma: Normal parenchymal echogenicity. Normal parenchymal thickness. -Collecting system: No hydronephrosis. -Calculus: No echogenic, shadowing calculus. -Lesion: None. Bladder: Normal. IVC: Imaged segment is patent. Abdominal Aorta: Imaged segment is patent. Maximum Diameter: 1.6 cm Ascites: None. HEPATIC VASCULATURE: Portal System: -Splenic Vein: Patent with antegrade flow (towards liver). -Main PV: Patent with antegrade flow (towards liver). Peak velocity - 24 cm/sec -Right posterior PV: Patent with antegrade flow (towards liver). -Right anterior PV: Patent with antegrade flow (towards liver). -Left PV: Patent with antegrade flow (towards liver). -Splenorenal shunt: -Patent Paraumbilical Vein: Hepatic Arterial Supply:. - Main BALL: Normal waveform. PSV: 40 cm/sec. RI 0.58 - Right posterior BALL: Normal waveform. - Right anterior BALL: Normal waveform. - Left BALL: Normal waveform. Hepatic Veins: The middle and left hepatic veins are patent. Right hepatic vein is not visualized. IVC: Patent. IMPRESSION IMPRESSION: Coarsened hepatic echotexture, in keeping with cirrhosis. No focal liver lesions. Mild splenomegaly, presumably related to portal hypertension. The visualized hepatoportal vessels are patent with a normal direction of flow. Status post cholecystectomy. Senior Pl Sql Developer: [email or web address] Transcribe Date/Time: Jul 30 2024 10:00A Dictated by : ELVER ROJAS MD This examination was interpreted and the report reviewed and electronically signed by: ELVER ROJAS MD on Jul 30 2024 10:13AM EST [facility] US DOPPLER COMPLETEon 2024 US DOPPLER COMPLETE * * *Final Report* * * DATE OF EXAM: Jul 30 2024 9:57AM U 1033 - US DOPPLER COMPLETE / PROCEDURE REASON: Cirrhosis * * * * Physician Interpretation * * * * EXAMINATION: COMPLETE ABDOMINAL ULTRASOUND and duplex evaluation of the hepatoportal vessels CLINICAL HISTORY: Cirrhosis TECHNIQUE: Sonography of the abdomen was performed. Images were obtained and stored in a permanent archive. MQ: UAbC_2 COMPARISON: CT scan 06/29/2023 RESULT: Pancreas: Normal sonographic appearance. Portions obscured: Tail Lesions: None Liver: Echotexture: Coarse Echogenicity: Normal Surface contour: Smooth Lesions: None. Biliary: No intrahepatic biliary duct dilation. CBD: 0.4 cm at the hilum. Gallbladder: Prior cholecystectomy - Spleen: Craniocaudal length: 14.2 cm Lesions: None Right Kidney: -Renal length: 12.6 cm -Parenchyma: Normal parenchymal echogenicity. Normal parenchymal thickness. -Collecting system: No hydronephrosis. -Calculus: No echogenic, shadowing calculus. -Lesion: 2.9 cm right lower pole cyst Left Kidney: -Renal length: 12.9 cm -Parenchyma: Normal parenchymal echogenicity. Normal parenchymal thickness. -Collecting system: No hydronephrosis. -Calculus: No echogenic, shadowing calculus. -Lesion: None. Bladder: Normal. IVC: Imaged segment is patent. Abdominal Aorta: Imaged segment is patent. Maximum Diameter: 1.6 cm Ascites: None. HEPATIC VASCULATURE: Portal System: -Splenic Vein: Patent with antegrade flow (towards liver). -Main PV: Patent with antegrade flow (towards liver). Peak velocity - 24 cm/sec -Right posterior PV: Patent with antegrade flow (towards liver). -Right anterior PV: Patent with antegrade flow (towards liver). -Left PV: Patent with antegrade flow (towards liver). -Splenorenal shunt: -Patent Paraumbilical Vein: Hepatic Arterial Supply:. - Main BALL: Normal waveform. PSV: 40 cm/sec. RI 0.58 - Right posterior BALL: Normal waveform. - Right anterior BALL: Normal waveform. - Left BALL: Normal waveform. Hepatic Veins: The middle and left hepatic veins are patent. Right hepatic vein is not visualized. IVC: Patent. IMPRESSION: Coarsened hepatic echotexture, in keeping with cirrhosis. No focal liver lesions. Mild splenomegaly, presumably related to portal hypertension. The visualized hepatoportal vessels are patent with a normal direction of flow. Status post cholecystectomy. Senior Pl Sql Developer: [facility] Transcribe Date/Time: Jul 30 2024 10:00A Dictated by : ELVER ROJAS MD This examination was interpreted and the report reviewed and electronically signed by: ELVER ROJAS MD on Jul 30 2024 10:13AM EST [id number] Normal [facility] US.doppler Abdominal vessels on 07-30-2024 * * *Final Report* * * DATE OF EXAM: Jul 30 2024 9:57AM U 1233 - US ABD LIVER VASCULAR / PROCEDURE REASON: Cirrhosis * * * * Physician Interpretation * * * * EXAMINATION: COMPLETE ABDOMINAL ULTRASOUND and duplex evaluation of the hepatoportal vessels CLINICAL HISTORY: Cirrhosis TECHNIQUE: Sonography of the abdomen was performed. Images were obtained and stored in a permanent archive. MQ: UAbC_2 COMPARISON: CT scan 06/29/2023 RESULT: Pancreas: Normal sonographic appearance. Portions obscured: Tail Lesions: None Liver: Echotexture: Coarse Echogenicity: Normal Surface contour: Smooth Lesions: None. Biliary: No intrahepatic biliary duct dilation. CBD: 0.4 cm at the hilum. Gallbladder: Prior cholecystectomy - Spleen: Craniocaudal length: 14.2 cm Lesions: None Right Kidney: -Renal length: 12.6 cm -Parenchyma: Normal parenchymal echogenicity. Normal parenchymal thickness. -Collecting system: No hydronephrosis. -Calculus: No echogenic, shadowing calculus. -Lesion: 2.9 cm right lower pole cyst Left Kidney: -Renal length: 12.9 cm -Parenchyma: Normal parenchymal echogenicity. Normal parenchymal thickness. -Collecting system: No hydronephrosis. -Calculus: No echogenic, shadowing calculus. -Lesion: None. Bladder: Normal. IVC: Imaged segment is patent. Abdominal Aorta: Imaged segment is patent. Maximum Diameter: 1.6 cm Ascites: None. HEPATIC VASCULATURE: Portal System: -Splenic Vein: Patent with antegrade flow (towards liver). -Main PV: Patent with antegrade flow (towards liver). Peak velocity - 24 cm/sec -Right posterior PV: Patent with antegrade flow (towards liver). -Right anterior PV: Patent with antegrade flow (towards liver). -Left PV: Patent with antegrade flow (towards liver). -Splenorenal shunt: -Patent Paraumbilical Vein: Hepatic Arterial Supply:. - Main BALL: Normal waveform. PSV: 40 cm/sec. RI 0.58 - Right posterior BALL: Normal waveform. - Right anterior BALL: Normal waveform. - Left BALL: Normal waveform. Hepatic Veins: The middle and left hepatic veins are patent. Right hepatic vein is not visualized. IVC: Patent. [facility] Provider, Irina Frances [facility] - 07/30/2024 * * *Final Report* * * DATE OF EXAM: Jul 30 2024 9:57AM RHU 1233 - US ABD LIVER VASCULAR / PROCEDURE REASON: Cirrhosis * * * * Physician Interpretation * * * * EXAMINATION: COMPLETE ABDOMINAL ULTRASOUND and duplex evaluation of the hepatoportal vessels CLINICAL HISTORY: Cirrhosis TECHNIQUE: Sonography of the abdomen was performed. Images were obtained and stored in a permanent archive. MQ: UAbC_2 COMPARISON: CT scan 06/29/2023 RESULT: Pancreas: Normal sonographic appearance. Portions obscured: Tail Lesions: None Liver: Echotexture: Coarse Echogenicity: Normal Surface contour: Smooth Lesions: None. Biliary: No intrahepatic biliary duct dilation. CBD: 0.4 cm at the hilum. Gallbladder: Prior cholecystectomy - Spleen: Craniocaudal length: 14.2 cm Lesions: None Right Kidney: -Renal length: 12.6 cm -Parenchyma: Normal parenchymal echogenicity. Normal parenchymal thickness. -Collecting system: No hydronephrosis. -Calculus: No echogenic, shadowing calculus. -Lesion: 2.9 cm right lower pole cyst Left Kidney: -Renal length: 12.9 cm -Parenchyma: Normal parenchymal echogenicity. Normal parenchymal thickness. -Collecting system: No hydronephrosis. -Calculus: No echogenic, shadowing calculus. -Lesion: None. Bladder: Normal. IVC: Imaged segment is patent. Abdominal Aorta: Imaged segment is patent. Maximum Diameter: 1.6 cm Ascites: None. HEPATIC VASCULATURE: Portal System: -Splenic Vein: Patent with antegrade flow (towards liver). -Main PV: Patent with antegrade flow (towards liver). Peak velocity - 24 cm/sec -Right posterior PV: Patent with antegrade flow (towards liver). -Right anterior PV: Patent with antegrade flow (towards liver). -Left PV: Patent with antegrade flow (towards liver). -Splenorenal shunt: -Patent Paraumbilical Vein: Hepatic Arterial Supply:. - Main BALL: Normal waveform. PSV: 40 cm/sec. RI 0.58 - Right posterior BALL: Normal waveform. - Right anterior BALL: Normal waveform. - Left BALL: Normal waveform. Hepatic Veins: The middle and left hepatic veins are patent. Right hepatic vein is not visualized. IVC: Patent. IMPRESSION IMPRESSION: Coarsened hepatic echotexture, in keeping with cirrhosis. No focal liver lesions. Mild splenomegaly, presumably related to portal hypertension. The visualized hepatoportal vessels are patent with a normal direction of flow. Status post cholecystectomy. Senior Pl Sql Developer: [email or web address] Transcribe Date/Time: Jul 30 2024 10:00A Dictated by : ELVER ROJAS MD This examination was interpreted and the report reviewed and electronically signed by: ELVER ROJAS MD on Jul 30 2024 10:13AM [facility].doppler Unspecified body regionon 07-30-2024 * * *Final Report* * * DATE OF EXAM: Jul 30 2024 9:57AM [facility] 1033 - US DOPPLER COMPLETE / PROCEDURE REASON: Cirrhosis * * * * Physician Interpretation * * * * EXAMINATION: COMPLETE ABDOMINAL ULTRASOUND and duplex evaluation of the hepatoportal vessels CLINICAL HISTORY: Cirrhosis TECHNIQUE: Sonography of the abdomen was performed. Images were obtained and stored in a permanent archive. MQ: UAbC_2 COMPARISON: CT scan 06/29/2023 RESULT: Pancreas: Normal sonographic appearance. Portions obscured: Tail Lesions: None Liver: Echotexture: Coarse Echogenicity: Normal Surface contour: Smooth Lesions: None. Biliary: No intrahepatic biliary duct dilation. CBD: 0.4 cm at the hilum. Gallbladder: Prior cholecystectomy - Spleen: Craniocaudal length: 14.2 cm Lesions: None Right Kidney: -Renal length: 12.6 cm -Parenchyma: Normal parenchymal echogenicity. Normal parenchymal thickness. -Collecting system: No hydronephrosis. -Calculus: No echogenic, shadowing calculus. -Lesion: 2.9 cm right lower pole cyst Left Kidney: -Renal length: 12.9 cm -Parenchyma: Normal parenchymal echogenicity. Normal parenchymal thickness. -Collecting system: No hydronephrosis. -Calculus: No echogenic, shadowing calculus. -Lesion: None. Bladder: Normal. IVC: Imaged segment is patent. Abdominal Aorta: Imaged segment is patent. Maximum Diameter: 1.6 cm Ascites: None. HEPATIC VASCULATURE: Portal System: -Splenic Vein: Patent with antegrade flow (towards liver). -Main PV: Patent with antegrade flow (towards liver). Peak velocity - 24 cm/sec -Right posterior PV: Patent with antegrade flow (towards liver). -Right anterior PV: Patent with antegrade flow (towards liver). -Left PV: Patent with antegrade flow (towards liver). -Splenorenal shunt: -Patent Paraumbilical Vein: Hepatic Arterial Supply:. - Main BALL: Normal waveform. PSV: 40 cm/sec. RI 0.58 - Right posterior BALL: Normal waveform. - Right anterior BALL: Normal waveform. - Left BALL: Normal waveform. Hepatic Veins: The middle and left hepatic veins are patent. Right hepatic vein is not visualized. IVC: Patent. [facility] Provider, Tiesha Cannon - 07/30/2024 * * *Final Report* * * DATE OF EXAM: Jul 30 2024 9:57AM RHU 1033 - US DOPPLER COMPLETE / PROCEDURE REASON: Cirrhosis * * * * Physician Interpretation * * * * EXAMINATION: COMPLETE ABDOMINAL ULTRASOUND and duplex evaluation of the hepatoportal vessels CLINICAL HISTORY: Cirrhosis TECHNIQUE: Sonography of the abdomen was performed. Images were obtained and stored in a permanent archive. MQ: [id number] COMPARISON: CT scan 06/29/2023 RESULT: Pancreas: Normal sonographic appearance. Portions obscured: Tail Lesions: None Liver: Echotexture: Coarse Echogenicity: Normal Surface contour: Smooth Lesions: None. Biliary: No intrahepatic biliary duct dilation. CBD: 0.4 cm at the hilum. Gallbladder: Prior cholecystectomy - Spleen: Craniocaudal length: 14.2 cm Lesions: None Right Kidney: -Renal length: 12.6 cm -Parenchyma: Normal parenchymal echogenicity. Normal parenchymal thickness. -Collecting system: No hydronephrosis. -Calculus: No echogenic, shadowing calculus. -Lesion: 2.9 cm right lower pole cyst Left Kidney: -Renal length: 12.9 cm -Parenchyma: Normal parenchymal echogenicity. Normal parenchymal thickness. -Collecting system: No hydronephrosis. -Calculus: No echogenic, shadowing calculus. -Lesion: None. Bladder: Normal. IVC: Imaged segment is patent. Abdominal Aorta: Imaged segment is patent. Maximum Diameter: 1.6 cm Ascites: None. HEPATIC VASCULATURE: Portal System: -Splenic Vein: Patent with antegrade flow (towards liver). -Main PV: Patent with antegrade flow (towards liver). Peak velocity - 24 cm/sec -Right posterior PV: Patent with antegrade flow (towards liver). -Right anterior PV: Patent with antegrade flow (towards liver). -Left PV: Patent with antegrade flow (towards liver). -Splenorenal shunt: -Patent Paraumbilical Vein: Hepatic Arterial Supply:. - Main BALL: Normal waveform. PSV: 40 cm/sec. RI 0.58 - Right posterior BALL: Normal waveform. - Right anterior BALL: Normal waveform. - Left BALL: Normal waveform. Hepatic Veins: The middle and left hepatic veins are patent. Right hepatic vein is not visualized. IVC: Patent. IMPRESSION IMPRESSION: Coarsened hepatic echotexture, in keeping with cirrhosis. No focal liver lesions. Mild splenomegaly, presumably related to portal hypertension. The visualized hepatoportal vessels are patent with a normal direction of flow. Status post cholecystectomy. Senior Pl Sql Developer: YVAN Transcribe Date/Time: Jul 30 2024 10:00A Dictated by : ELVER ROJAS MD This examination was interpreted and the report reviewed and electronically signed by: ELVER ROJAS MD on Jul 30 2024 10:13AM [facility] 07-21-2024 36 Pts scheduled f or 10/28/24 at 3:40pm with Dr Linda at [facility]. will check with pt if he wants a pelvic floor PT order or not and let us know. Also gave message again from Dr Linda about keeping track of the leakage. [facility] 36 Name of caller: Jyoti isidro Contact phone number: [phone] Relationship to Patient: spouse/SO Provider: DO. Linda Practice: [facility] Chief Complaint/Reason for Call: Nicole states that she would like to schedule the patient an appointment for October. Please review. Best time of day caller can be reached: any Patient advised that office/PCP has 24-48 business hours to return their call: Yes [facility] 36 Called pt and LMR wi th Dr Linda message - left word for word and also she would be on leave for a few months. Happy to get him scheduled for early October to see her when she is back. Also to please call us and let me know if he would like a referral to pelvic floor PT and Dr Linda will write that order. [place] [id number] 36 Please advise patien t that I can meet with him in the office in October to discuss options for continued leakage Advise him I would like him to continue Kegels, and if he would like to go to pelvic floor therapy we can send him to PFPT in the meantime I would like him to keep tract of leakage (pads per day, types of pads, when th leakage occurs, etc) If he is agreeable I will meet with him in October [address] 07-15-2024 36 Name of caller: Jyoti isidro Contact phone number: [phone] Relationship to Patient: spouse/SO Provider: Dr. Linda Practice: Urology Chief Complaint/Reason for Call: Nicole called advising on when the next surgery will be since the sling isn't working for the patient. Nicole advised that provider mentioned there might be another surgery that could help patient. Please call Nicole back and advise. Best time of day caller can be reached: any Patient advised that office/PCP has 24-48 business hours to return their call: Yes [facility] ([facility] ) CADE ISLAS ([id number]) 1945 Date Time Provider Department 07/15/24 11:40 AM BRUNILDA CRUZ [facility] During your visit today, we recorded the following information about you: Pulse Blood pressure Weight Height 72/minute 112/76 97.1 kg 1.727 m Brunilda Cruz, TICK[facility] SORTER.[facility] 07/15/2024 11:[address] [facility] Nir Le MD SUBJECTIVE: Cade Islas is a 79 year old male who is here today for a follow-up visit. The patient is doing well from the cardiovascular standpoint. He denies chest pain, shortness of breath, palpitations, PND, orthopnea, syncope, near-syncope, or edema. PAST MEDICAL HISTORY Diagnosis Date Anxiety AV node dysfunction Benign hypertension BPH (benign prostatic hyperplasia) Chronic pain CKD (chronic kidney disease) stage 2, GFR 60-89 ml/min DM II (diabetes mellitus, type II) ([facility]) H/O echocardiogram 02/21/2023 EF 64? 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 Sick sinus syndrome, AV node dysfunction, paroxysmal A-fib, LVEF 64% by echo, BMI 31, PVCs, Xarelto anticoagulation. Pacer by Dr. Acuna at [facility]. PAF (paroxysmal atrial fibrillation) (HCC) Polyneuropathy Prostate CA (HCC) PVC's (premature ventricular contractions) Sinus bradycardia PAST SURGICAL HISTORY Procedure Laterality Date F TRIAL SPINAL CORD STIMULATOR FORCEPS ESOPHAGEAL BIOPSY PERFORMED HAND LEFT OP SURGERY x5 HAND RIGHT OP SURGERY x 4 PACEMAKER DUAL Left 04/04/2023 Dual pacer (Biotronik) LBB area pacing. Sick sinus syndrome, AV node dysfunction, paroxysmal A-fib, LVEF 64% by echo, BMI 31, PVCs, Xarelto anticoagulation. Pacer by Dr. Acuna at [facility]. PAST SURGICAL HISTORY OF 04/24/2023 removal of Prostate PROSTATE BIOPSY REMOVAL GALLBLADDER 01/2023 FAMILY HISTORY Problem Relation Age of Onset No Known Problems Brother Cancer Maternal Grandmother SOCIAL HISTORY: Social History Tobacco Use Smoking status: Never Passive exposure: Never Smokeless tobacco: Never Vaping Use Vaping status: Never Used Substance Use Topics Alcohol use: Never Drug use: Never ALLERGIES: Patient has no known allergies. CURRENT MEDICATIONS: Current Outpatient Medications Medication Sig amLODIPine (NORVASC) 5 mg tablet Take 5 mg by mouth once daily. rivaroxaban (XARELTO) 20 mg tablet Take 1 tablet by mouth daily with dinner. sotalol (BETAPACE) 240 mg tablet Take 1 tablet by mouth every 12 hours. HYDROcodone-Acetaminophen (NORCO) 7.5-325 mg per tablet Take 1 tablet by mouth every 6 hours as needed. Cholecalciferol, Vitamin D3, 125 mcg/mL (5,000 unit/mL) drop Take 5,000 Units by mouth every morning. semaglutide (OZEMPIC) 2 mg/dose (8 mg/3 mL) pen injector Inject 2 mg subcutaneously one time a week. Takes on Wednesdays VITAMIN B COMPLEX ORAL Take 1 tablet by mouth once daily. amitriptyline (ELAVIL) 100 mg tablet Take 100 mg by mouth daily at bedtime. atorvastatin (LIPITOR) 10 mg tablet Take 10 mg by mouth daily at bedtime. fluticasone (FLONASE) 50 mcg/actuation nasal spray Use 1 [place] in each nostril as needed. gabapentin (NEURONTIN) 600 mg tablet Take 600 mg by mouth three times a day. levothyroxine (SYNTHROID) 50 mcg tablet Take 50 mcg by mouth daily before breakfast. lisinopril (ZESTRIL) 40 mg tablet Take 40 mg by mouth two times a day. metFORMIN (GLUCOPHAGE) 500 mg tablet Take 1,000 mg by mouth two times a day with meals. potassium chloride SR (MICRO-K) 10 mEq CR capsule Take 10 mEq by mouth every morning. No current facility-administered medications for this visit. Review of Systems Constitutional: Negative for activity change and fever. Respiratory: Negative for apnea, cough, chest tightness, shortness of breath, wheezing and stridor. Cardiovascular: Negative for chest pain, palpitations and leg swelling. Gastrointestinal: Negative for abdominal distention, diarrhea and vomiting. Musculoskeletal: Negative for joint swelling, neck pain and neck stiffness. Skin: Negative for color change, pallor and rash. Neurological: Negative for dizziness, syncope, weakness, light-headedness and numbness. Hematological: Does not bruise/bleed easily. Psychiatric/Behavioral: Negative for agitation, behavioral problems and confusion. The patient is not nervous/anxious. All other systems reviewed and are negative. PHYSICAL EXAMINATION: 07/15/24 1057 BP: 112/76 BP Site: Left Arm BP Position: Sitting Pulse: 72 Weight: 97.1 kg (214 lb) Height: 172.7 cm (5' 8) Last 3 Encounter BP Readings: Date: BP: 01/07/2024 112/72 06/29/2023 14 (more content not included)... [facility] CADE ISLAS ([id number]) 1945 M Date Time Provider Department 07/15/24 11:00 AM [facility] [id number] During your visit today, we recorded the following information about you: Janelle Chaudhary LPN 07/18/2024 9:15 AM Signed Dual Pacer Report In Office Check Date: July 15, 2024 Time: 8:58 AM Devices: Implants Lead Ra Lead CAN [employer] V[employer]-04/04/2023 - Implanted Heart Model/Cat number: REBECA Swift [id number] Serial number: [id number] Reservations Agent: [employer] Lot number: LEFT AXILLARY VEIN Size: Right Atrial Pacing Lead As of 04/04/2023 Status: Implanted Left Bundle Branch Area Ventricular Lead Biotronik-04/04/2023 - Implanted Heart Model/Cat number: REBECA Swift [id number] Serial number: [id number] Reservations Agent: [employer] Lot number: LEFT AXILLARY VEIN Size: Left Bundle Branch Area Ventricular Lead As of 10/03/2023 Status: Implanted Pacemaker Dual Pacer CAN [employer]-04/04/2023 - Implanted (Left) Chest Wall Model/Cat number: MELISSA [id number]-T PRO-[id number] Serial number: [id number] Reservations Agent: [employer] Lot number: INITIAL DUAL PACER; LBB AREA PACING Size: Sick sinus syndrome, AV node dysfunction, paroxysmal A-fib, LVEF 64% by echo, BMI 31, PVCs, Xarelto anticoagulation. As of 01/07/2024 Status: Implanted Symptoms: None Underlying Rhythm: Sinus in the 40's Last Interrogation Date: 01-07-2024 Estimated Remaining Longevity: 8 yrs 4 months until RADHA Dependency: No Interrogation Performed by: Janelle Chaudhary LPN Programming Parameters Mode: DDD-CLS Lower Rate: 60 Upper Track: 140 Upper Sensor: 130 Paced AV Delay: 220 Sensed AV Delay: 180 Atrial Refractory: ind Mode Switch: 160 Additional Device Information -VS percent: 0% -PRODUCT TRANSFER PUMPER percent: 0% AP-VS percent: 59% AP-PRODUCT TRANSFER PUMPER percent: 36% Atrial: Threshold: 0.5 V @ 0.4 msec Programmed amp/PW: 1.5 V @ 0.4 msec P wave: 2.6 mV Sensitivity: auto Impedance: 312 ohms Pacing percent: 83% Right Ventricle: Threshold: 0.8 V @ 0.4 msec Programmed amp/PW: 1.3 V @ 0.4 msec R wave: 11.0 mV Sensitivity: auto Impedance: 409 ohms RV pacin% Episodes: Atrial Fib count: 25 Atrial burden: 4% Mode Switch episodes: 7,763 Ventricular Fibrillation count: 0 Fast Ventricular Tachycardia count: 0 Slow Ventricular Tachycardia: 0 NSVT: 0 Summary: Normal device function. Normal pacing and sensing threshold. Battery: 8 yrs 4 months until RADHA. Histogram: ok. Atrial episodes: 25 AFIB events, longest was 1 day, 4% of the time. Ventricular episodes: none. Changes: per auto threshold testing. Follow up: 3 month remote, 6 months device check and provider appointment. View External Cardiology - Correctional Nurse Strips [ID [id number]] Allergies As of Date: 07/15/2024 (No Known Allergies) Date Reviewed: 07/15/2024 Reviewed by: Louise Chaudhary MA - Fully Assessed Reason for Visit: Permanent Pacemaker [1364] Primary Visit Diagnosis:Encounter for care of pacemaker [Z45.018] Prescriptions as of 07/18/2024 - amLODIPine (NORVASC) 5 mg tablet Take 5 mg by mouth once daily. - rivaroxaban (XARELTO) 20 mg tablet Take 1 tablet by mouth daily with dinner. - sotalol (BETAPACE) 240 mg tablet Take 1 tablet by mouth every 12 hours. - HYDROcodone-Acetaminophen (NORCO) 7.5-325 mg per tablet Take 1 tablet by mouth every 6 hours as needed. - Cholecalciferol, Vitamin D3, 125 mcg/mL (5,000 unit/mL) drop Take 5,000 Units by mouth every morning. - semaglutide (OZEMPIC) 2 mg/dose (8 mg/3 mL) pen injector Inject 2 mg subcutaneously one time a week. Takes on Wednesdays - VITAMIN B COMPLEX ORAL Take 1 tablet by mouth once daily. - amitriptyline (ELAVIL) 100 mg tablet Take 100 mg by mouth daily at bedtime. - atorvastatin (LIPITOR) 10 mg tablet Take 10 mg by mouth daily at bedtime. - fluticasone (FLONASE) 50 mcg/actuation nasal spray Use 1 [place] in each nostril as needed. - gabapentin (NEURONTIN) 600 mg tablet Take 600 mg by mouth three times a day. - levothyroxine (SYNTHROID) 50 mcg tablet Take 50 mcg by mouth daily before breakfast. - lisinopril (ZESTRIL) 40 mg tablet Take 40 mg by mouth two times a day. - metFORMIN (GLUCOPHAGE) 500 mg tablet Take 1,000 mg by mouth two times a day with meals. - potassium chloride SR (MICRO-K) 10 mEq CR capsule Take 10 mEq by mouth every morning. Problem List As Of Date 07/15/2024 Noted Resolved Prostate CA (HCC) [C61] 01/26/2023 Polyneuropathy [G62.9] 01/26/2023 PAF (paroxysmal atrial fibrillation) (HCC) [I48*01/26/2023 Mixed hyperlipidemia [E78.2] 01/26/2023 assisted current use of anticoagulant [Z79.01] 01/26/2023 Insomnia [G47.00] 01/26/2023 Hypothyroidism [E03.9] 01/26/2023 History of stress test [Z92.89] 09/25/2022 DM II (diabetes mellitus, type II) (HCC) [E11.9]01/26/2023 CKD (chronic kidney disease) [N18.9] 01/26/2023 Chronic pain [G89.29] (more content not included)... [facility] ECG COMPLETEon 07-15-2024 ECG COMPLETE Ventricular Rate : 1 01 BPM Atrial Rate : 101 BPM QRS Duration : 160 ms Q-T Interval : 466 ms QTC Calculation(Bazett) : 604 ms Calculated R [place] : -63 degrees Calculated T [place] : 103 degrees AV dual-paced rhythm with frequent ventricular-paced complexes Abnormal ECG When compared with ECG of 14-May-2023 12:14, Premature supraventricular complexes are no longer Present Confirmed by RIGO DAVIS MD ([id number]) on 08/06/2024 10:38:00 PM NAME : CADE ISLAS PID : [id number] : 1945 Gender : Male Race : ORD : [id number] Procedure Date : Jul 15 2024 10:49:39 Edit Date : Aug 06 2024 22:38:03 Diagnosis: AV dual-paced rhythm with frequent ventricular-paced complexes Abnormal ECG When compared with ECG of 14-May-2023 12:14, Premature supraventricular complexes are no longer Present Confirmed by RIGO DAVIS MD ([id number]) on 08/06/2024 10:38:00 PM Test Reason : Location : 201 : [facility] Overread By : RIGO DAVIS MD Edited By : RIGO DAVIS MD Referred By : , Acquired by : Louise Michelle, [facility] AFP SerPl-mCncon 07-03-2024 AFP [Mass/Vol] 1.61 ng/mL Normal <9.00 [facility] Comment on above: Order Comment: Zakiya mina Type: BLOOD SPECIMEN Ordering Facility: [facility]) Address: [address] [place] [address] Result Comment: The Alpha-Fetoprotein test was performed using the Alana Inkblazersel DxI immunoenzymatic assay. Results obtained with different assay methods or kits cannot be used interchangeably. Performed By: #### 2 276-4, 78727-5 #### [facility] CLIA [id number] [address] [place] [address] [place] PT panel Coag (PPP)on 2024 INR Coag (PPP) [Relative time] 1.1 {INR} Normal 0.9-1.3 [facility] Comment on above: Order Comment: Zakiya mina Type: BLOOD SPECIMEN Ordering Facility: [facility] Address: [address] [place] [address] Result Comment: Celia min K Antagonist (VKA) Therapeutic Range: INR 2 to 3 (Target INR of 2.5) Note: For patients treated with VKA drugs, such as warfarin, the [place] [employer] 2012 Guideline recommends a therapeutic INR range of 2 to 3 (target INR of 2.5). This recommendation includes high-risk patients with antiphospholipid syndrome with previous arterial or venous thromboembolism, current-generation mechanical or bioprosthetic aortic heart valve replacement. Note: Patients with mechanical aortic valve replacement and additional risk factors for thromboembolic events (atrial fibrillation, previous thromboembolism, LV dysfunction, hypercoagulable conditions) or an older generation mechanical AVR (i.e., ball in-Cage) or any mechanical MVR should have a INR therapeutic range of 2.5 to 3.5 (target INR of 3). Mahesh GENTILE, et al. Chest 2012, 141:7S-47S Ishmael ZENDEJAS et al. [facility] 2017, 70: 252-289 Performed By: #### 2 276-4, 65789-8 #### [facility] CLIA [id number] [facility] [place] [id number] [place] PT Coag (PPP) [Time] 12.0 s Normal 9.7-13.0 [facility] Comment on above: Order Comment: Speci men Type: BLOOD SPECIMEN Ordering Facility: [facility] Address: [facility] [place] [address] Performed By: #### 2 276-4, 23941-9 #### [facility] CLIA [id number] [address] [place] [id number] [place] XR HIP DERRICK 5V PEL+ AP/LAT EA HIPon 07-03-2024 XR HIP DERRICK 5V PEL+ AP/LAT EA HIP * * *Final Report* * * DATE OF EXAM: Jul 03 2024 9:05AM [id number] [id number] - XR HIP DERRICK 5V PEL+ AP/LAT EA HIP / PROCEDURE REASON: osteoarthritis both hips * * * * Physician Interpretation * * * * XR HIP DERRICK 5V PEL+ AP/LAT EA HIP Ordering Physician: ANA GARLAND Clinical Statement: Osteoarthritis both hips. Comparison left hip 03/03/2021 FINDINGS: Frontal radiograph of the pelvis demonstrates partial visualization of pulse generator spinal stimulator wires overlying the lumbar spine.. Mild bilateral sacroiliac joint degenerative change. Mild osteoarthritic change bilateral hips with joint space narrowing and osteophyte formation. No erosive arthropathy. Chronic appearing cortical thickening along the posterior aspect of the proximal femurs bilaterally. Penile prosthesis with presumed reservoir overlying the bladder.. IMPRESSION: No acute osseous abnormality. Mild bilateral hip joint osteoarthritic change. Senior Pl Sql Developer: [email or web address] Transcribe Date/Time: Jul 07 2024 6:54A Dictated by : ELVER ROJAS MD This examination was interpreted and the report reviewed and electronically signed by: ELVER ROJAS MD on Jul 07 2024 6:57AM EST [id number] Normal [facility] Ferritin SerPl-mCncon 2024 Ferritin [Mass/Vol] 39.8 ng/mL Normal 24.0-388.0 [facility] Comment on above: Order Comment: Speci men Type: BLOOD SPECIMEN Ordering Facility: [facility] Address: [address] [place] [address] Performed By: #### 2 276-4, 33842-2 #### [facility] CLIA [id number] [address] [place], [place] [address] [place] Iron and Iron binding capaci ty panelon 05-23-2024 Iron [Mass/Vol] 44 ug/dL Low 65-175 [facility] Comment on above: Order Comment: Speci men Type: BLOOD SPECIMEN Ordering Facility: [facility] Address: [facility] [place] [address] Result Comment: Marysol ents treated with metal-binding drugs (e.g.deferoxamine) may have depressed iron values, as chelated iron may not properly react in the Siemens iron assay. Performed By: #### 2 276-4, 20419-2 #### [facility] CLIA [id number] [address] [place] [address] [place] Iron binding capacity [Mass/Vol] 379 ug/dL Normal 221-481 [facility] Comment on above: Order Comment: Speci men Type: BLOOD SPECIMEN Ordering Facility: [facility] Address: [address] [place] [address] Performed By: #### 2 276-4, 74727-8 #### [facility] CLIA [id number] [address] [place], [place] [address] [place] Iron/TIBC [Molar ratio] 11.6 % Low 22.0-44.0 [facility] Comment on above: Order Comment: Speci men Type: BLOOD SPECIMEN Ordering Facility: [facility] Address: [facility] [place] [address] Performed By: #### 2 276-4, 67120-0 #### [facility] CLIA [id number] [address] [place], [place] [address] [place] AFP SerPl-mCncon 04-22-2024 AFP [Mass/Vol] 1.59 ng/mL Normal <9.00 [facility] Comment on above: Order Comment: Speci men Type: BLOOD SPECIMEN Ordering Facility: [facility] & On[facility] Address: [address] [place] [address] Result Comment: The Alpha-Fetoprotein test was performed using the Alana Unicel DxI immunoenzymatic assay. Results obtained with different assay methods or kits cannot be used interchangeably. Performed By: #### 2 276-4, 55226-9 #### [facility] CLIA [id number] [address] [place] [address] [place] ALBUMIN/CREATININE RATIO, UR INEon 04-22-2024 Albumin DL <= 20 mg/L (U) [Mass/Vol] 12.0 mg/L Normal 0.0-19.0 [facility] Comment on above: Order Comment: Speci leopoldo Type: BLOOD SPECIMEN Ordering Facility: [facility] Address: [address] [place] [address] Performed By: #### 2 276-4, 32069-1 #### [facility] CLIA [id number] [address] [place] [address] [place] Albumin/Creatinine (U) [Mass ratio] 7 mg/g Normal <30 [facility] Comment on above: Order Comment: Speci leopoldo Type: BLOOD SPECIMEN Ordering Facility: [facility] Address: [address] [place] [address] Result Comment: Adul t Male and Female Nephrotic Criteria: <30 mg/g is considered normal to mildly increased 30-300 mg/g is considered moderately increased >300 mg/g is considered severely increased KDIGO. (2013). KDIGO 2012 Clinical Practice Guideline for the Evaluation and Management of Chronic Kidney Disease. Official Journal of the International Society of Nephrology, 3(1), 1-150. Performed By: #### 2 276-4, 46555-2 #### [facility] CLIA [id number] [address] [place] [address] [place] Creatinine (U) [Mass/Vol] 168.1 mg/dL Normal 40.0-278.0 [facility] Comment on above: Order Comment: Speci men Type: BLOOD SPECIMEN Ordering Facility: [facility] Address: [address] [place], [place] [address] Performed By: #### 2 276-4, 16061-4 #### [facility] CLIA [id number] [address] [place] [address] [place] Bilirub Conj SerPl-mCncon Bilirubin.conjugated [Mass/Vol] 0.2 mg/dL Normal 0.0-0.4 [facility] Comment on above: Order Comment: Speci men Type: BLOOD SPECIMEN Ordering Facility: [facility] Address: [address] [place] [address] Performed By: #### 2 276-4, 72839-4 #### [facility] CLIA [id number] [address] [place] [place] [address] [place] CBC W Auto Differential pane l (Bld)on 04-22-2024 Basophils (Bld) [#/Vol] 10*3/uL Normal <0.11 [facility] Comment on above: Order Comment: Speci men Type: BLOOD SPECIMEN Ordering Facility: [facility] Address: [address] [place] [address] Performed By: #### 1 0886-0 #### [facility] CLIA [id number] [address] [place] [address] [place] Basophils/100 WBC (Bld) 0.2 % Normal [facility] Comment on above: Order Comment: Speci men Type: BLOOD SPECIMEN Ordering Facility: [facility] Address: [address] [place] [address] Performed By: #### 1 0886-0 #### [facility] CLIA [id number] [address] [place] [address] [place] Differential cell count method Nom (Bld) Auto Normal [facility] Comment on above: Order Comment: Speci men Type: BLOOD SPECIMEN Ordering Facility: [facility] Address: [address] [place] [address] Performed By: #### 1 0886-0 #### [facility] CLIA [id number] [address] [place] [address] [place] Eosinophils (Bld) [#/Vol] 0.26 10*3/uL Normal <0.46 [facility] Comment on above: Order Comment: Speci men Type: BLOOD SPECIMEN Ordering Facility: [facility] Address: [address] [place] [address] Performed By: #### 1 0886-0 #### [facility] CLIA [id number] [address] [place] [address] [place] Eosinophils/100 WBC (Bld) 5.0 % Normal [facility] Comment on above: Order Comment: Speci men Type: BLOOD SPECIMEN Ordering Facility: [facility] Address: [address] [place] [address] Performed By: #### 1 0886-0 #### [facility] CLIA [id number] [address] [place] [address] [place] Erythrocyte distribution width (RBC) [Ratio] 12.1 % Normal 11.5-15.0 [facility] Comment on above: Order Comment: Speci men Type: BLOOD SPECIMEN Ordering Facility: [facility] Address: [address] [place] [address] Performed By: #### 1 0886-0 #### [facility] CLIA [id number] [address] [place] [address] [place] Hematocrit (Bld) [Volume fraction] 41.5 % Normal 39.0-51.0 [facility] Comment on above: Order Comment: Speci men Type: BLOOD SPECIMEN Ordering Facility: [facility] Address: [address] [place] [address] Performed By: #### 1 0886-0 #### [facility] CLIA [id number] [address] [place] [address] [place] Hemoglobin (Bld) [Mass/Vol] 14.1 g/dL Normal 13.0-17.0 [facility] Comment on above: Order Comment: Speci men Type: BLOOD SPECIMEN Ordering Facility: [facility] Address: [address] [place] [address] Performed By: #### 1 0886-0 #### [facility] CLIA [id number] [address] [place] [address] [place] Immature granulocytes (Bld) [#/Vol] 10*3/uL Normal <0.10 [facility] Comment on above: Order Comment: Speci men Type: BLOOD SPECIMEN Ordering Facility: [facility] Address: [address] [place] [address] Performed By: #### 1 0886-0 #### [facility] CLIA [id number] [address] [place] [address] [place] Immature granulocytes/100 WBC (Bld) 0.0 % Normal [facility] Comment on above: Order Comment: Speci men Type: BLOOD SPECIMEN Ordering Facility: [facility] Address: [address] [place] [address] Performed By: #### 1 0886-0 #### [facility] CLIA [id number] [address] [place] [address] [place] Lymphocytes (Bld) [#/Vol] 1.22 10*3/uL Normal 1.00-4.00 [facility] Comment on above: Order Comment: Speci men Type: BLOOD SPECIMEN Ordering Facility: [facility] Address: [address] [place] [address] Performed By: #### 1 0886-0 #### [facility] CLIA [id number] [address] [place] [address] [place] Lymphocytes/100 WBC (Bld) 23.5 % Normal [facility] Comment on above: Order Comment: Speci men Type: BLOOD SPECIMEN Ordering Facility: [facility] Address: [address] [place] [address] Performed By: #### 1 0886-0 #### [facility] CLIA [id number] [facility] [place] [address] [place] MCH (RBC) [Entitic mass] 31.1 pg Normal 26.0-34.0 [facility] Comment on above: Order Comment: Speci men Type: BLOOD SPECIMEN Ordering Facility: [facility] Address: [address] [place] [address] Performed By: #### 1 0886-0 #### [facility] CLIA [id number] [address] [place] [address] [place] MCHC (RBC) [Mass/Vol] 34.0 g/dL Normal 30.5-36.0 [facility] Comment on above: Order Comment: Speci men Type: BLOOD SPECIMEN Ordering Facility: [facility] Address: [address] [place] [address] Performed By: #### 1 0886-0 #### [facility] CLIA [id number] [address] [place] [address] [place] MCV (RBC) [Entitic vol] 91.4 fL Normal 80.0-100.0 [facility] Comment on above: Order Comment: Speci men Type: BLOOD SPECIMEN Ordering Facility: [facility] Address: [address] [place] [address] Performed By: #### 1 0886-0 #### [facility] CLIA [id number] [address] [place] [address] [place] Monocytes (Bld) [#/Vol] 0.61 10*3/uL Normal <0.87 [facility] Comment on above: Order Comment: Speci men Type: BLOOD SPECIMEN Ordering Facility: [facility] Address: [address] [place] [address] Performed By: #### 1 0886-0 #### [facility] CLIA [id number] [address] [id number] [address] [place] Monocytes/100 WBC (Bld) 11.8 % Normal [facility] Comment on above: Order Comment: Speci men Type: BLOOD SPECIMEN Ordering Facility: [facility] Address: [address] [place] [address] Performed By: #### 1 0886-0 #### [facility] CLIA [id number] [address] [place] [id number] [place] Neutrophils (Bld) [#/Vol] 3.09 10*3/uL Normal 1.45-7.50 [facility] Comment on above: Order Comment: Speci men Type: BLOOD SPECIMEN Ordering Facility: [facility] Address: [address] [place] [address] Performed By: #### 1 0886-0 #### [facility] CLIA [id number] [address] [place] [id number] [place] Neutrophils/100 WBC (Bld) 59.5 % Normal [facility] Comment on above: Order Comment: Speci men Type: BLOOD SPECIMEN Ordering Facility: [facility] Address: [address] [place] [address] Performed By: #### 1 0886-0 #### [facility] CLIA [id number] [address] [place] [id number] [place] Platelet mean volume (Bld) [Entitic vol] 11.9 fL Normal 9.0-12.7 [facility] Comment on above: Order Comment: Speci men Type: BLOOD SPECIMEN Ordering Facility: [facility] Address: [address] [place] [address] Performed By: #### 1 0886-0 #### [facility] CLIA [id number] [address] [place] [address] [place] Platelets (Bld) [#/Vol] 124 10*3/uL Low 150-400 [facility] Comment on above: Order Comment: Speci men Type: BLOOD SPECIMEN Ordering Facility: [facility] Address: [address] [place] [address] Performed By: #### 1 0886-0 #### [facility] CLIA [id number] [address] [place] [address] [place] RBC (Bld) [#/Vol] 4.54 10*6/uL Normal 4.20-6.00 [facility] Comment on above: Order Comment: Speci men Type: BLOOD SPECIMEN Ordering Facility: [facility] Address: [address] [place] [address] Performed By: #### 1 0886-0 #### [facility] CLIA [id number] [address] [place], [place] [address] [place] WBC (Bld) [#/Vol] 5.19 10*3/uL Normal 3.70-11.00 [facility] Comment on above: Order Comment: Speci men Type: BLOOD SPECIMEN Ordering Facility: [facility] Address: [address] [place] [address] Performed By: #### 1 0886-0 #### [facility] CLIA [id number] [address] [place], [place] [address] [place] Comprehensive metabolic 2000 panelon 04-22-2024 Albumin [Mass/Vol] 3.6 g/dL Normal 3.2-5.0 [facility] Comment on above: Order Comment: Speci men Type: BLOOD SPECIMEN Ordering Facility: [facility] Address: [address] [place] [address] Performed By: #### 2 276-4, 93954-0 #### [facility] CLIA [id number] [address] [place], [place] [address] [place] ALP [Catalytic activity/Vol] 165 U/L High 45-117 [facility] Comment on above: Order Comment: Speci men Type: BLOOD SPECIMEN Ordering Facility: [facility] Address: [address] [place] [address] Performed By: #### 2 276-4, 54322-6 #### [facility] CLIA [id number] [address] [place] [address] [place] ALT [Catalytic activity/Vol] 42 U/L Normal 13-61 [facility] Comment on above: Order Comment: Speci men Type: BLOOD SPECIMEN Ordering Facility: [facility] Address: [address] [place] [address] Result Comment: Resu lts may be falsely depressed after the administration of Sulfasalazine and/or Sulfapyridine. Performed By: #### 2 276-4, 75277-6 #### [facility] CLIA [id number] [address] [place] [address] [place] Anion gap [Moles/Vol] 7 mmol/L Normal 5-16 [facility] Comment on above: Order Comment: Speci men Type: BLOOD SPECIMEN Ordering Facility: [facility] Address: [address] [place] [address] Performed By: #### 2 276-4, 40205-7 #### [facility] CLIA [id number] [address] [place] [address] [place] AST [Catalytic activity/Vol] 43 U/L High 8-34 [facility] Comment on above: Order Comment: Speci men Type: BLOOD SPECIMEN Ordering Facility: [facility] Address: [address] [place] [address] Result Comment: Resu lts may be falsely depressed after the administration of Sulfasalazine and/or Sulfapyridine. Performed By: #### 2 276-4, 52767-4 #### [facility] CLIA [id number] [address] [place] [address] [place] Bilirubin [Mass/Vol] 0.5 mg/dL Normal 0.2-1.0 [facility] Comment on above: Order Comment: Speci men Type: BLOOD SPECIMEN Ordering Facility: [facility] Address: [address] [place] [address] Performed By: #### 2 276-4, 66322-7 #### [facility] CLIA [id number] [address] [place] [address] [place] Calcium [Mass/Vol] 9.8 mg/dL Normal 8.5-10.5 [facility] Comment on above: Order Comment: Speci men Type: BLOOD SPECIMEN Ordering Facility: [facility] Address: [address] [place] [address] Performed By: #### 2 276-4, 67727-6 #### [facility] CLIA [id number] [address] [place] [address] [place] Chloride [Moles/Vol] 103 mmol/L Normal 98-107 [facility] Comment on above: Order Comment: Speci men Type: BLOOD SPECIMEN Ordering Facility: [facility] Address: [address] [place] [address] Performed By: #### 2 276-4, 80707-5 #### [facility] CLIA [id number] [address] [place], [place] [address] [place] CO2 [Moles/Vol] 29 mmol/L Normal 21-32 [facility] Comment on above: Order Comment: Speci men Type: BLOOD SPECIMEN Ordering Facility: [facility] Address: [address] [place] [address] Performed By: #### 2 276-4, 90966-7 #### [facility] CLIA [id number] [address] [place], [place] [address] [place] Creatinine [Mass/Vol] 1.06 mg/dL Normal 0.50-1.40 [facility] Comment on above: Order Comment: Speci men Type: BLOOD SPECIMEN Ordering Facility: [facility] Address: [address] [place] [address] Result Comment: Marysol ents receiving either N-Acetylcysteine (NAC) or Metamizole prior to venipuncture, may have falsely depressed results. Performed By: #### 2 276-4, 27255-2 #### [facility] CLIA [id number] [address] [place] [address] [place] Creatinine and Glomerular filtration rate.predicted panel (S/P/Bld) 72 mL/min/1.73m??? Normal >=60 [facility] Comment on above: Order Comment: Zakiya mina Type: BLOOD SPECIMEN Ordering Facility: [facility] Address: [address] [place] [address] Result Comment: Starr mated Glomerular Filtration Rate (eGFR) is calculated using the 2020 CKD-EPI creatinine equation. This equation utilizes serum creatinine, sex, and age as parameters. The creatinine assay has traceable calibration to isotope dilution-mass spectrometry. Refer to KDIGO guidelines for clinical interpretation. In patients with unstable renal function, e.g. those with acute kidney injury, the eGFR may not accurately reflect actual GFR. Performed By: #### 2 276-4, 84423-6 #### [facility] CLIA [id number] [address] [place] [address] [place] Glucose [Mass/Vol] 98 mg/dL Normal 70-100 [facility] Comment on above: Order Comment: Zakiya mina Type: BLOOD SPECIMEN Ordering Facility: [facility] Address: [address] [place] [address] Result Comment: The [place] Diabetes Association (ADA) provides guidance for cutoff values for fasting glucose and random glucose. The ADA defines fasting as no caloric intake for at least 8 hours. Fasting plasma glucose results between 100 to 125 mg/dL indicate increased risk for diabetes (prediabetes). Fasting plasma glucose results greater than or equal to 126 mg/dL meet the criteria for diagnosis of diabetes. In the absence of unequivocal hyperglycemia, results should be confirmed by repeat testing. In a patient with classic symptoms of hyperglycemia or hyperglycemic crisis, random plasma glucose results greater than or equal to 200 mg/dL meet the criteria for diagnosis of diabetes. Reference: Standards of Medical Care in Diabetes 2016, [place] [employer] Association. Diabetes Care. 2016.39(Suppl 1). Results may be falsely elevated after the administration of Sulfapyridine. Results may be falsely depressed after the administration of Sulfasalazine. Performed By: #### 2 276-4, 86402-1 #### [facility] CLIA [id number] [address] [place] [address] [place] Potassium [Moles/Vol] 4.0 mmol/L Normal 3.5-5.1 [facility] Comment on above: Order Comment: Speci men Type: BLOOD SPECIMEN Ordering Facility: [facility] Address: [address] [place] [address] Performed By: #### 2 276-4, 96191-8 #### [facility] CLIA [id number] [address] [place] [address] [place] Protein [Mass/Vol] 6.9 g/dL Normal 6.0-8.5 [facility] Comment on above: Order Comment: Speci men Type: BLOOD SPECIMEN Ordering Facility: [facility] Address: [facility] [place] [address] Performed By: #### 2 276-4, 60860-2 #### [facility] CLIA [id number] [address] [place] [address] [place] Sodium [Moles/Vol] 139 mmol/L Normal 136-145 [facility] Comment on above: Order Comment: Speci men Type: BLOOD SPECIMEN Ordering Facility: [facility] Address: [address] [place] [address] Performed By: #### 2 276-4, 70908-0 #### [facility] CLIA [id number] [address] [place] [address] [place] Urea nitrogen [Mass/Vol] 19 mg/dL Normal 7-26 [facility] Comment on above: Order Comment: Speci men Type: BLOOD SPECIMEN Ordering Facility: [facility] Address: [address] [place] [address] Performed By: #### 2 276-4, 24906-2 #### [facility] CLIA [id number] [address] [place], [place] [address] [place] HbA1c (Bld)on 04-22-2024 Average glucose Estimated from glycated hemoglobin (Bld) [Mass/Vol] 97 mg/dL Normal [facility] Comment on above: Order Comment: Speci men Type: BLOOD SPECIMEN Ordering Facility: [facility] Address: [address] [place] [address] Result Comment: eAG: (Estimated average glucose) is a calculated value from HgbA1c and is associate financial representative of the average blood glucose level in the last 2-3 month period. Performed By: #### 2 276-4, 60154-2 #### [facility] CLIA [id number] [address] [place] [address] [place] HbA1c (Bld) [Mass fraction] 5.0 % Normal 4.3-5.6 [facility] Comment on above: Order Comment: Speci men Type: BLOOD SPECIMEN Ordering Facility: [facility] Address: [address] [place] [address] Result Comment: [place] Diabetes Association guidelines indicate that patients with HgbA1c in the range 5.7-6.4% are at increased risk for development of diabetes, and intervention by lifestyle modification may be beneficial. HgbA1c greater or equal to 6.5% is considered diagnostic of diabetes. Performed By: #### 2 276-4, 59188-9 #### [facility] CLIA [id number] [address] [place], [place] [address] [place] PSA SerPl-mCncon 04-22-2024 Prostate specific Ag [Mass/Vol] 0.07 ng/mL Normal <2.60 [facility] Comment on above: Order Comment: Speci men Type: BLOOD SPECIMEN Ordering Facility: [facility] Address: [address] [place] [address] Result Comment: This is a new methodology for this marker. Tumor markers obtained from different assay methods cannot be used interchangeably. Expect results of this assay to run lower than the previous assay. It is recommended to re-baseline patients when changing to a new methodology. Performed By: #### 1 0886-0 #### [facility] CLIA [id number] [address] [address] [place] PT panel Coag (PPP)on 2024 INR Coag (PPP) [Relative time] 1.4 {INR} High 0.9-1.3 [facility] Comment on above: Order Comment: Zakiya mina Type: BLOOD SPECIMEN Ordering Facility: [facility] Address: [address] [place], [place] [address] Result Comment: Celia min K Antagonist (VKA) Therapeutic Range: INR 2 to 3 (Target INR of 2.5) Note: For patients treated with VKA drugs, such as warfarin, the [place] [employer] 2012 Guideline recommends a therapeutic INR range of 2 to 3 (target INR of 2.5). This recommendation includes high-risk patients with antiphospholipid syndrome with previous arterial or venous thromboembolism, current-generation mechanical or bioprosthetic aortic heart valve replacement. Note: Patients with mechanical aortic valve replacement and additional risk factors for thromboembolic events (atrial fibrillation, previous thromboembolism, LV dysfunction, hypercoagulable conditions) or an older generation mechanical AVR (i.e., ball in-Cage) or any mechanical MVR should have a INR therapeutic range of 2.5 to 3.5 (target INR of 3). Mahesh GH, et al. Chest 2012, 141:7S-47S Ishmael RA, et al. [facility] 2017, 70: 252-289 Performed By: #### 1 0886-0 #### [facility] CLIA [id number] [address] [place] [id number] [place] PT Coag (PPP) [Time] 14.9 s High 9.7-13.0 [facility] Comment on above: Order Comment: Zakiya mina Type: BLOOD SPECIMEN Ordering Facility: [facility] Address: [address] [place] [address] Performed By: #### 1 0886-0 #### [facility] CLIA [id number] [address] [address] [place] TSH SerPl-aCncon 04-22-2024 TSH Qn 2.731 m[IU]/L Normal 0.358-3.74 0 [facility] Comment on above: Order Comment: Speci men Type: BLOOD SPECIMEN Ordering Facility: [facility] Address: [address] [place] [address] Result Comment: 3rd generation ultra sensitive TSH. Performed By: #### 2 276-4, 80054-2 #### [facility] CLIA [id number] [address] [place] [address] [facility] 37on 04-17-2024 37 Penile Yarsani P rotocol (Cycling Protocol) after Implant Great news: after an implant, the ability to have an erection on demand is available to you at any time of the day. The implant is designed to stay inflated for as long as you need/and or desire. What about LENGTH? As function decreases over time, the erectile tissue chambers can atrophy. When an implant is placed, we placed the LARGEST device that your tissue can safely accommodate. The most common device we place is designed to EXPAND IN LENGTH OVER TIME. This requires cycling the device to maximum rigidity on a regular basis after activation. CYCLING INSTRUCTIONS (Approximately 10 minutes per day) Once you have been given the all-clear to begin cycling your implant, it is important for you to become familiar with your device. Inflate the implant at least once per day, even if there are no plans to be sexually active. Once the implant has been filled to what you perceive to be maximum pressure, leave it in that position for 3 minutes. This allows your tissues to stretch around the implant. After 3 minutes, attempt to inflate further, again to maximum rigidity. Wait another 3 minutes. Repeat the attempt to inflate further, and leave it at this level for 3 more minutes. Empty the chambers by pressing the small button above the pump and holding it for several seconds. You should feel a vibratory sensation once you've activated this deflation mechanism. To fully empty the chambers, gently squeeze the penis, starting at the head/glans and moving back towards your pubic bone. This will help empty fluid from the chambers and force it back into the reservoir. Continue this regimen daily over several months to observe maximum erectile length. Visit [email or web address] for links to [employer] videos that will also show you how to use and cycle your implant. The video How to use your penile implant: from Dr Montgomery at [facility] is extremely helpful (I trained with Dr Montgomery in [place] and feel he puts together a very helpful video for patients). Aric Linda DO Reconstructive Urology [address], [address] [place] [address] Office: Fax: [facility] Office Visiton 04-17-2024 Follow-up visit [id number] Cade Islas 1945 M Date Provider Department Center 04/17/2024 [id number] LINDA [facility] URO None Family History Problem Relation Age of Onset Hypertension Paternal Grandfather Cancer Paternal Grandmother Family Status - Relation Status Age at Father Mother Paternal Grandfather Paternal Grandmother Level of Service:23224 NC OFFICE/OUTPATIENT ESTABLISHED MOD MDM 30 MIN Reason for Visit and Comments: Erectile Dysfunction [340066] - IPP activation [facility] Progress Noteon 04-17-2024 Progress Note Aric delgado DO Urology Office Visit Established patient [facility] - [address] [place] [id number] Dept: [phone] Dept Loc: [phone] PATIENT NAME: Cade Islas DATE OF : 1945 REFERRING PROVIDER: No ref. provider found PCP: Nir Le MD DATE OF VISIT: 04/17/2024 CHIEF COMPLAINT: Chief Complaint Patient presents with Erectile Dysfunction IPP activation Impression: Diagnoses and all orders for this visit: Prostate cancer (HCC) - PSA Total (Diagnostic Post-Prostatectomy); Future - PSA Total (Diagnostic Post-Prostatectomy); Future Stress incontinence, male Erectile dysfunction after radical prostatectomy . Plan: Doing well after surgery last month, is still having occasional bouts of some mild stress incontinence but overall improved Handout was given regarding Kegels, if he does continue to do some Kegels we may be able to resolve what leakage she has left Not overly bothered by urge at this time IPP teaching performed, Cade was able to both inflate and deflate the prosthesis satisfactorily today. He was also provided with penile hindu protocol Almost 1 year out from prostatectomy, currently no evidence of disease This is a separate identifiable problem which was addressed and managed today due for next PSA at the end of the month, ordered today Will contact him with results of PSA, plan to follow-up in about 6 months with another PSA prior Follow Up: Follow up in about 6 months (around 10/15/2024) for Prostate cancer follow up ([facility], ED) PSA Prior. Aric Linda, Reconstructive Urology [facility] Subjective: Mr. Islas is a 79 y.o. male who presents to the office for IPP activation. Records have been reviewed HPI HPI IPP (inflatable penile prosthesis) activation Patient was seen today for activation of inflatable penile prosthesis. Physical examination reveals that penile prosthesis is in good position and pump is in the mid scrotum. Penile prosthesis was inflated by squeezing the bulb of the pump. This was done by giving the pump a firm squeeze after securing the pump within the scrotum using 2 hands. A small pop could be felt indicating that the valve is opened, then using a small flutter technique the bulb was compressed repeatedly in order to bring fluid from the reservoir into the cylinders. Device was able to cycle very well. Device was then deflated by pressing down the deflation button on the pump. Button was held down for approximately 4 seconds, then the shaft was given a gentle squeeze to encourage more fluid to return to the reservoir. Patient was then taught this technique of cycling. He demonstrated appropriate knowledge of the the pump location, is able to demonstrate inflating the device as well as deflating the device. He will be given a handout on penile hindu protocol and IPP cycling as well today. If he has any questions or wishes to review cycling techniques, he is welcome to call the office and make an appointment for follow-up at any time. He is allowed to use the device at any time. No restrictions. As always with any sign infection (erythema, proportion to the exam, swelling,) he should proceed to the emergency department immediately. He can also visit [email or web address] for further information regarding the penile prosthesis. Cade presents for follow-up visit He underwent advance XP male urethral sling and penile prosthesis insertion on 03/10/2024 Postoperatively he did have urinary retention, was discharged home with a catheter He underwent void trial in the office on 03/17/2024 Today he reports he is overall doing well. Did have some swelling and tenderness after the surgery, he is still moderately tender. He was able to deflate the prosthesis at home, this was because we did leave the prosthesis somewhat inflated at the time of surgery. He will occasionally have a small amount of leakage however he is improved from prior to us placing the sling He is due for PSA blood test at the end of this month, he is nearly 1 year out from his prostatectomy 03/10/24 AdVance XP Male urethral sling, AMS CX IPP 15 cm cylinder + 3 cm RTE bilaterally, 65 ml reservoir on the left 04/23/23 RALP. pT3a N0 M0 grade group 5 (Beau 4+5 = 9) intraductal Mary Alice Gota Burr, extraprostatic extension and perineural invasion present. Margins negative. Lymph nodes negative PSA 02/04/2024 0.05 11/07/2023 0.03 07/19/23 <0.1 05/14/23 0.11 Tobacco History reports that he has been smoking cigarettes. He has never used smokeless tobacco. Review of Systems Review of Systems Constitutional: Negative. HENT: Negative. Gastrointestinal: Negative. Genitourinary: Positive for enuresis, frequency, scrotal swelling and testicular pain. Negative for difficulty urinating, penile pain and penile swelling (more content not included)... Normal [facility] 04-11-2024 [facility] CADE ISLAS ([id number]) 1945 M Date Time Provider Department 04/11/24 1:40 PM [facility] [id number] During your visit today, we recorded the following information about you: Yogesh Acuna MD 04/12/2024 11:33 AM Signed Dual Pacer Remote Check Date: April 11, 2024 Time: 10:47 AM Devices: Implants Implant Lead Ra Lead CAN [employer]-04/04/2023 - Implanted Heart Model/Cat number: REBECA Swift [id number] Serial number: [id number] Reservations Agent: [employer] Lot number: LEFT AXILLARY VEIN Size: Right Atrial Pacing Lead Left Bundle Branch Area Ventricular Lead [employer]-04/04/2023 - Implanted Heart Model/Cat number: REBECA Swift [id number] Serial number: [id number] Reservations Agent: [employer] Lot number: LEFT AXILLARY VEIN Size: Left Bundle Branch Area Ventricular Lead Pacemaker Dual Pacer [employer]ik-04/04/2023 - Implanted (Left) Chest Wall Model/Cat number: EDORA 8 [id number] Serial number: [id number] Reservations Agent: [employer] Lot number: INITIAL DUAL PACER; LBB AREA PACING Size: Sick sinus syndrome, AV node dysfunction, paroxysmal A-fib, LVEF 64% by echo, BMI 31, PVCs, Xarelto anticoagulation. Last Interrogation Date: 01-07-2024 Estimated Remaining Longevity: 90% of the battery left until RADHA Interrogation Performed by: Janelle Chaudhary LPN Programming Parameters Mode: DDD-CLS Lower Rate: 60 Upper Track: 140 Upper Sensor: 130 Paced AV Delay: 220 Sensed AV Delay: 180 Atrial Refractory: ind Mode Switch: 160 Additional Device Information -VS percent: 0% -PRODUCT TRANSFER PUMPER percent: 0% AP-VS percent: 60% AP-PRODUCT TRANSFER PUMPER percent: 33% Atrial: Threshold: 0.5 V @ 0.4 msec Programmed amp/PW: 1.5 V @ 0.4 msec P wave: 3.3 mV Sensitivity: auto Impedance: 312 ohms Pacing percent: 92% Right Ventricle: Threshold: 0.6 V @ 0.4 msec Programmed amp/PW: 1.1 V @ 0.4 msec R wave: 10.1 mV Sensitivity: auto Impedance: 429 ohms RV pacin% Episodes: Atrial Fib count: 0 Atrial burden: 2% of day Mode Switch episodes: 23/day Ventricular Fibrillation count: 0 Fast Ventricular Tachycardia count: 0 Slow Ventricular Tachycardia: 0 NSVT: 0 Summary: Normal device function. Normal pacing and sensing threshold. Battery: 90% of the battery left until RADHA. Histogram: ok. Atrial episodes: 23 mode switch, 2% of day. Ventricular episodes: none. Follow up: 3 month device check and provider appointment. View External Cardiology - Correctional Nurse Strips [ID [id number]] Allergies As of Date: 04/11/2024 (No Known Allergies) Date Reviewed: 01/07/2024 Reviewed by: Brunilda Cruz APRN.EPIC AMBULATORY ANALYST - Fully Assessed Reason for Visit: Remote Pacemaker Follow Up [1925] Primary Visit Diagnosis:Encounter for care of pacemaker [Z45.018] Prescriptions as of 04/12/2024 - rivaroxaban (XARELTO) 20 mg tablet Take 1 tablet by mouth daily with dinner. - sotalol (BETAPACE) 240 mg tablet Take 1 tablet by mouth every 12 hours. - HYDROcodone-Acetaminophen (NORCO) 7.5-325 mg per tablet Take 1 tablet by mouth every 6 hours as needed. - Cholecalciferol, Vitamin D3, 125 mcg/mL (5,000 unit/mL) drop Take 5,000 Units by mouth every morning. - semaglutide (OZEMPIC) 2 mg/dose (8 mg/3 mL) pen injector Inject 2 mg subcutaneously one time a week. Takes on Wednesdays - VITAMIN B COMPLEX ORAL Take 1 tablet by mouth once daily. - amitriptyline (ELAVIL) 100 mg tablet Take 100 mg by mouth daily at bedtime. - atorvastatin (LIPITOR) 10 mg tablet Take 10 mg by mouth daily at bedtime. - fluticasone (FLONASE) 50 mcg/actuation nasal spray Use 1 [place] in each nostril as needed. - gabapentin (NEURONTIN) 600 mg tablet Take 600 mg by mouth three times a day. - levothyroxine (SYNTHROID) 50 mcg tablet Take 50 mcg by mouth daily before breakfast. - lisinopril (ZESTRIL) 40 mg tablet Take 40 mg by mouth two times a day. - metFORMIN (GLUCOPHAGE) 500 mg tablet Take 1,000 mg by mouth two times a day with meals. - potassium chloride SR (MICRO-K) 10 mEq CR capsule Take 10 mEq by mouth every morning. 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 [facility] CNP[facility] 04[facility]08[facility]20[facility]) CADE ISLAS ([id number]) 1945 M Date Time Provider Department 04/08/24 BRUNILDA CRUZ [facility] During your visit today, we recorded the following information about you: Janelle Chaudhary LPN 04/08/2024 8:26 AM Signed Patient went into AFIB yesterday and is ongoing. Brunilda Cruz, TICKET SORTER.EPIC AMBULATORY ANALYST 04/08/2024 8:45 AM Signed It looks like he has gone in and out of A-fib in the past. Check in 1 week and let me know if he still in fib. Janelle Chaudhary LPN 04/08/2024 8:55 AM Signed Will do. Janelle Chaudhary LPN 04/15/2024 1:04 PM Signed Patient converted to sinus rhythm. Allergies As of Date: 04/08/2024 (No Known Allergies) Date Reviewed: 01/07/2024 Reviewed by: Brunilda Cruz APRN.CNP - Fully Assessed Reason for Visit: Patient Update [1234] Cmt: AFIB Prescriptions as of 04/15/2024 - rivaroxaban (XARELTO) 20 mg tablet Take 1 tablet by mouth daily with dinner. - sotalol (BETAPACE) 240 mg tablet Take 1 tablet by mouth every 12 hours. - HYDROcodone-Acetaminophen (NORCO) 7.5-325 mg per tablet Take 1 tablet by mouth every 6 hours as needed. - Cholecalciferol, Vitamin D3, 125 mcg/mL (5,000 unit/mL) drop Take 5,000 Units by mouth every morning. - semaglutide (OZEMPIC) 2 mg/dose (8 mg/3 mL) pen injector Inject 2 mg subcutaneously one time a week. Takes on Wednesdays - VITAMIN B COMPLEX ORAL Take 1 tablet by mouth once daily. - amitriptyline (ELAVIL) 100 mg tablet Take 100 mg by mouth daily at bedtime. - atorvastatin (LIPITOR) 10 mg tablet Take 10 mg by mouth daily at bedtime. - fluticasone (FLONASE) 50 mcg/actuation nasal spray Use 1 [place] in each nostril as needed. - gabapentin (NEURONTIN) 600 mg tablet Take 600 mg by mouth three times a day. - levothyroxine (SYNTHROID) 50 mcg tablet Take 50 mcg by mouth daily before breakfast. - lisinopril (ZESTRIL) 40 mg tablet Take 40 mg by mouth two times a day. - metFORMIN (GLUCOPHAGE) 500 mg tablet Take 1,000 mg by mouth two times a day with meals. - potassium chloride SR (MICRO-K) 10 mEq CR capsule Take 10 mEq by mouth every morning. Problem List As Of Date 04/08/2024 Noted Resolved Prostate CA (HCC) [C61] 01/26/2023 Polyneuropathy [G62.9] 01/26/2023 PAF (paroxysmal atrial fibrillation) (HCC) [I48*01/26/2023 Mixed hyperlipidemia [E78.2] 01/26/2023 assisted current use of anticoagulant [Z79.01] 01/26/2023 Insomnia [G47.00] 01/26/2023 Hypothyroidism [E03.9] 01/26/2023 History of stress test [Z92.89] 09/25/2022 DM II (diabetes mellitus, type II) (HCC) [E11.9]01/26/2023 CKD (chronic kidney disease) [N18.9] 01/26/2023 Chronic pain [G89.29] 01/26/2023 BPH (benign prostatic hyperplasia) [N40.0] 01/26/2023 Benign hypertension [I10] 01/26/2023 Anxiety [F41.9] 01/26/2023 Obesity (BMI 30.0-34.9) [E66.811] 02/06/2023 CKD (chronic kidney disease) stage 2, GFR 60-89*02/06/2023 PVC's (premature ventricular contractions) [I49*02/06/2023 AV node dysfunction [I45.89] 02/06/2023 Sinus bradycardia [R00.1] 02/06/2023 Acute gangrenous cholecystitis [K81.0] 02/06/2023 12/24/2023 Chronic renal insufficiency [N18.9] 02/07/2023 Cirrhosis of liver without ascites, unspecified*02/22/2023 Solitary pulmonary nodule [R91.1] 02/06/2023 Diagnosed: 03/02/2023 Thrombocytopenia, unspecified (HCC) [D69.6] 02/06/2023 Diagnosed: 03/02/2023 Lung nodules [R91.8] 03/02/2023 H/O echocardiogram [Z92.89] 03/21/2023 Osteoarthritis of multiple joints [M15.9] 04/03/2023 Pacemaker [Z95.0] 04/04/2023 Encounter Status:Closed by JANELLE CHAUDHARY on 04/08/24 [facility] 36on 03-20-2024 36 Patient passed voidi ng trial on 03/17/24. Closing TE [facility] Progress Noteon 03-17-2024 Progress Note ------- Attestation signed by GREGORIO Hayward CNP at 03/17/2024 12:[address] [address] [facility] [id number] Supervising Provider?s Attestation Statement The patient met the criteria for indirect supervision. I reviewed the findings/plan from clinical staff and agree as documented in their noted. Rachele LOGA Cotter [facility] 03/17/2024 at 12:07 PM An electronic signature was used to authenticate this note. [facility] [address] [facility] [facility], [address] [facility] [phone] Urology Nursing Visit PATIENT NAME: Cade Islas DATE OF : 1945 TODAY'S DATE: 03/17/2024 Patient presents today for indwelling cannon catheter removal and trial of voiding. Pt came in for post op voiding trial after: Insertion of AdVance XP male urethral sling Local tissue rearrangement (dartos flap 2 cm x 6 cm = 12 cm2) Insertion of inflatable penile prosthesis Performed by Dr Linda on 03/10/2024 No Known Allergies Procedure: The existing 18 grenadian coud? tip catheter was instilled with 180 mL of sterile water into the urinary bladder. The catheter balloon was deflated, removing 10 mL of fluid. The catheter was clamped and then removed without difficulty. The patient was able to void 140 mL immediately. Patient tolerated well. PLAN: Patient was able to void after catheter removal. Will follow-up in approximately 4 weeks to assess postvoid residual. Advised patient that it is common to having some burning with urination and to see blood-tinged urine intermittently for 2-4 weeks after catheter removal due to nature of recent surgical procedure. This timeframe can be longer if on blood thinning medications. Encouraged patient to increase fluids over the next few weeks to help with blood in urine and burning with urination that can occur. Patient instructed to go to ER if fever >100.4F +/- chills develop or unable to urinate. [facility] 36on 03-13-2024 36 Patient called in [facility] that he is having trouble with moving his bowels. Patient states that he is taking the Colace but not having an effect. Patient instructed to add some Miralax as well to the Colace until his bowels start to move then he can back up off the Miralax. Patient instructed to drink plenty of water as well at least 64 - 90 oz. Patient verbalized understanding and have no further questions or concerns at this time. [facility] 36on 03-11-2024 36 Patient post inserti on urethral sling. Patient's called in to schedule VT. Scheduled for 03/17 at 11:30 am. [facility] 36on 03-10-2024 36 Pt had IPP, sling pl acement 03/10. Unable to pass void trial in post-op. Will need void trial in office in 1 week. [facility] Laboratory - Chemistry and C hemistry - challengeon 03-10-2024 Glucose [Mass/Vol] 125 mg/dL High 70 - 100 mg/dL [facility] Glucose [Mass/Vol] 108 mg/dL High 70 - 100 mg/dL [facility] No Panel Informationon 03-10 Interpretation and review of laboratory results Abnormal [facility] Performed by: [facility], [address] [place] [address] CLIA ID: [id number] [facility] Interpretation and review of laboratory results Abnormal [facility] Performed by: [facility], [address] [place] [address] CLIA ID: [id number] [facility] Nursing Noteon 03-10-2024 Nursing Note Discharge instructio ramin reviewed with patient and patient's at bedside. All questions answered. Patient understands catheter care, Dr Linda's office to contact him for follow up, and pain medication instructions. [facility] Nursing Note Patient with urinary retention. 14Fr cannon catheter insertion ordered. Patient tolerated insertion well. Educated on care and bag change. 300ml urine returned. Alix notified. Dr Linda office to contact patient for removal visit. [facility] Nursing Note Patient with urgency , stood to urinate 70-75ml. PVR measured 275ml. Res notified. [facility] Nursing Note Patient with urgency to void. Had already urinated in bed when covers pulled back to assist to stand. Slow trickling of urine into urinal. As soon as patient thought he was done, trickled more urine to floor. Assisted back to bed, got dry gown and blanket. PVR shows 407ml. Will message Res and Dr Linda. 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 Erectile dysfunction after prostatectomy Operation: Insertion of AdVance XP male urethral sling Local tissue rearrangement (dartos flap 2 cm x 6 cm = 12 cm2) Insertion of inflatable penile prosthesis Surgeon: Aric Linda DO Knobber: Trudy Abdi MD PGY5 Anesthesia: General EBL: minimal Wound classification: Clean Implants: AdVance XP Male Urethral Sling AMS 700 CX IPP 15 cm cylinders with 3 cm RTE bilaterally, 65 ml spherical reservoir on the left via counter incision Drains/Packing: none Cannon: none Specimens: none Complications: none apparent Condition: stable to PACU Indication for Procedure: Cade Islas is a 78 y.o. male who presents with stress urinary incontinence after radical prostatectomy. The patient was offered all pertinent options for his urinary incontinence and discussion was held regarding an artificial sphincter versus a male sling. Given his degree of leakage and the ability to coapt his sphincter, he has opted for the male sling despite a higher chance of dry rate with the artificial sphincter. Patient is interested in proceeding with placement of MALE URETHRAL SLING. He understands there is a higher dry rate with artificial sphincter, but after weighing his options we agreed that he is a good candidate for sling. We discussed risks of the procedure, which include but are not limited to bleeding, infection, pain, damage to urethra, urinary retention, continued urinary leakage, change in sensation and cosmesis, need for additional procedure and erectile dysfunction.. He understands that damage to the urethra or exposure of the sling would necessitate removal of sling with urethral repair and rest. He understands that there may be continued leakage after sling placement. Artificial sphincter could be considered in the future but comes with increased risk due to prior surgery.There is also a risk of post operative urinary retention, which may necessitate intermittent clean catheterization or indwelling catheter for a period of time after surgery. While this typically resolves, it can be permanent in some cases. He also understands there are risks associated with general anesthesia, and he agrees to proceed. Discussed benefits/risks/indications of penile prosthesis implant surgery including infection, mechanical device malfunction, need for additional procedures, urethral injury, blood loss, scaring, change in sensation, and pain in addition to general risks of anesthesia and he elects to proceed with surgery Description of Procedure: Patient was brought to the operating room and placed on the operative table. Induction per anesthesia. Vancomycin (1500mg) and Gentamicin (5mg/kg) and fluconazole 400mg were administered preoperative antibiotic, he was positioned in a normal dorsolithotomy fashion. Patient was then prepped and draped in the normal sterile fashion, a timeout was performed and all parties were in agreement. A 14-Micronesian silicone urethral Cannon catheter was placed. 10 mL of sterile water was used to inflate the balloon and the bladder was evacuated and then a catheter plug was placed. A 3-0 Prolene glans stay suture was used to help with penile retraction. A vertical midline incision was made on the patient's perineal rhaphe and dissection was carried down to the level of the bulbospongiosus muscle. This was divided sharply in the midline to expose the urethra. [place] retractor was placed and blunt hooks were used to retract the tissues and provide appropriate exposure. The central perineal tendon was then divided. The left groin crease was then identified and the adductor longus tendon was easily palpated. Approximately 1.5 cm below this tendon in the groin crease and just lateral to this, a spinal needle was placed to identify the obturator foramen. A 15 blade scalpel was used to puncture the skin at the site of this needle and the needle was removed. A helical trocar was then used to navigate through the upper foramen and then out into the perineal wound in the space between the urethra and corporal body. Once this was done, an AdVance XP male urethral sling was then attached to this helical trocar and its arm was then withdrawn through the corresponding puncture site at the skin. This procedure was completed in an identical fashion on the contralateral (right) side. The sling was then secured at four points with 4-0 absorbable suture at the corners to the tunica of the urethra. The points of fixation began just distal to the distal most insertion of the central perineal tendon. The sling was noted to ascend approximate (more content not included)... [facility] 36on 03-03-2024 36 03/03/2024 10:10 I spoke with patient. He is aware to hold his Xarelto 3 days prior to surgery. He has no questions at this time. Thank you. [facility] [facility] 36on 02-29-2024 36 Maribell simmons Is not part of [facility] / inbox is not monitored He may hold Xarelto for 3 days prior to surgery per PAT protocol [facility] [address] Tyler's office Sunday at 1400. Was told by phone service that they leave at 1 pm on Sunday. Will attempt to talk to someone in office on Sunday [phone]. Normal [facility] 36 I have added Maribell Simmons EPIC AMBULATORY ANALYST on this encounter. [facility] ECG 12-LEADon 02-29-2024 ECG 12-LEAD IMPRESSION: Atrial-ventricular dual-paced complexes PVC Electronically Signed On 02-29-2024 08:26:40 EST by Lorene Olivares [facility] [id number] 02-28-2024 [id number] Medication List Accurate as of February 28, 2024 4:01 PM. Always use your most recent med list. amitriptyline 100 MG tablet Commonly known as: Elavil Medication Adjustments for Surgery: Take night before surgery amLODIPine 5 MG tablet Commonly known as: Norvasc Medication Adjustments for Surgery: Take morning of surgery atorvastatin 10 MG tablet Commonly known as: Lipitor Medication Adjustments for Surgery: Take morning of surgery cholecalciferol 125 MCG (5000 UT) capsule Commonly known as: Vitamin D-3 Medication Adjustments for Surgery: Hold morning of surgery fluticasone 50 MCG/ACT nasal spray Commonly known as: Flonase Medication Adjustments for Surgery: Take morning of surgery gabapentin 600 MG tablet Commonly known as: Neurontin Medication Adjustments for Surgery: Take morning of surgery HYDROcodone-acetaminophen 10-325 MG tablet Commonly known as: [place] Notes to patient: Ok to take if needed day of surgery levothyroxine 50 MCG tablet Commonly known as: Synthroid, Levoxyl Medication Adjustments for Surgery: Take morning of surgery lisinopril 40 MG tablet Medication Adjustments for Surgery: Hold morning of surgery metFORMIN XR 500 MG 24 hr tablet Commonly known as: Glucophage-XR Notes to patient: Hold 48 hours prior to surgery, last dose 03/07/24 Ozempic (2 MG/DOSE) 8 MG/3ML solution pen-injector Generic drug: Semaglutide (2 MG/DOSE) Notes to patient: Hold 7 days prior to surgery, last dose 02/27/24 potassium chloride ER 10 MEQ ER capsule Commonly known as: Micro-K Medication Adjustments for Surgery: Hold morning of surgery sotalol 240 MG tablet Commonly known as: Betapace Medication Adjustments for Surgery: Take morning of surgery Vascepa 1 g capsule Generic drug: Icosapent Ethyl Medication Adjustments for Surgery: Hold morning of surgery vitamin B complex tablet Medication Adjustments for Surgery: Hold morning of surgery Xarelto 20 MG tablet Generic drug: rivaroxaban Notes to patient: Patient instructed to hold Xarelto 3 days prior to surgery per Dr. Le Additional Instructions: You may take your prescription pain medication. You may take Tylenol for pain. NO Motrin, ibuprofen or Advil for 24 hours prior to surgery or longer if instructed by your surgeon. NO Aleve or Naprosyn for 5 days prior to surgery or longer if instructed by your surgeon. IF YOU TAKE BLOOD THINNERS OR ASPIRIN: Hold Xarelto 3 days prior to surgery per Dr. Le. Last dose 03/07/24. Follow any instructions given to you by Dr. Linda. Shower with an antibacterial soap such as Dial or Safeguard before coming to the hospital. No lotion, powder, deodorant or body sprays. No hair products. Remove all jewelry and leave it at home. Wear loose comfortable clothing to go home in. You may brush your teeth morning of surgery. Do not wear contacts day of surgery. No marijuana (THC), smoking or alcohol for 24 hours prior to surgery. Please arrange for a responsible adult to drive you home after your surgery and that there is a responsible adult with you for 24 hours post discharge. If you have specific questions, please call your surgeon. You will receive a call the day before your surgery to verify your arrival time and date. You will be asked to arrive at least two hours prior to your scheduled surgery time. Please bring your [facility] Surgical folder and medication list with you day of surgery. We encourage you to write down any questions you may have for the surgeon, anesthesiologist, or other members of the surgical team and bring it with you the day of surgery. Please bring photo ID and insurance information. No food after midnight. You may have clear liquids up to 2 hours prior to surgery including: -water -apple or cranberry juice (NO orange juice) -black coffee or clear tea (NO creamer or milk) -soda (carbonated beverages) -sports drinks Before arriving to the hospital, have up to 16 ounces of your favorite clear fluid, preferably a sports drink such as Gatorade or Powerade. POWER PLANT MECHANIC AND PARKING IN THE MAIN DECK ARE FREE DAY OF SURGERY. PARKING IN THE DECK-- AFTER PARKING TAKE THE ELEVATOR TO LEVEL ONE AND TAKE THE BRIDGE TO THE HOSPITAL. GO TO THE RIGHT AND GO AROUND THE CORNER TO THE SAME DAY SURGERY DESK AND CHECK IN THERE. IF GOING IN THE MAIN ENTRANCE-- TURN LEFT AND GO DOWN THE WHYTE TO THE H ELEVATORS AND TAKE THEM TO ONE, LEFT OFF THE ELEVATOR AND GO AROUND TO THE SAME DAY DESK AND CHECK IN. Normal [facility] 36on 02-28-2024 36 LVM advising of appo intment time changing from 4:00 PM to 7:30 AM on 04/17/2024. Mailed appointment letter also Normal [facility] CBC (HEMOGRAM)on 02-28-2024 Erythrocyte distribution width (RBC) [Ratio] 12.6 % Normal 11.5-15.0 [facility] Comment on above: Performed By: #### L AB294 #### Tipple Repairer: JANELLE [id number]) [facility] [address] [place] [address] Hematocrit (Bld) [Volume fraction] 41.4 % Normal 40.0-52.0 [facility] Comment on above: Performed By: #### L AB294 #### Tipple Repairer: JANELLE DANIELSON ([id number]) [facility] [address] [place] [address] Hemoglobin (Bld) [Mass/Vol] 14.3 g/dL Normal 13.0-18.0 [facility] Comment on above: Performed By: #### L AB294 #### Tipple Repairer: JANELLE DANIELSON ([id number]) [facility]) [address] [place] [address] IPF 5 Normal [facility] Comment on above: Performed By: #### L AB294 #### Tipple Repairer: JANELLE DANIELSON ([id number]) [facility] [address] [place] [address] MCH (RBC) [Entitic mass] 31.0 pg Normal 26.0-34.0 [facility] Comment on above: Performed By: #### L AB294 #### Tipple Repairer: JANELLE DANIELSON ([id number]) [facility] [address] [place] [address] MCHC 34.5 % Normal 30.5-36.0 [facility] Comment on above: Performed By: #### L AB294 #### Tipple Repairer: JANELLE DANIELSON ([id number]) [facility] [address] [place] [address] MCV (RBC) [Entitic vol] 89.6 fL Normal 77.0-99.0 [facility] Comment on above: Performed By: #### L AB294 #### Tipple Repairer: JANELLE DANIELSON ([id number]) [facility] [address] [place] [address] Platelet mean volume (Bld) [Entitic vol] 11.5 fL Normal 9.0-12.7 [facility] Comment on above: Performed By: #### L AB294 #### Tipple Repairer: JANELLE DANIELSON ([id number]) [facility]) [address] [place] [address] Platelets (Bld) [#/Vol] 112 10*3/uL Low 140-440 [facility] Comment on above: Performed By: #### L AB294 #### Tipple Repairer: JANELLE DANIELSON ([id number]) [facility] [address] [place] [address] RBC (Bld) [#/Vol] 4.62 10*6/uL Normal 4.40-5.90 [facility] Comment on above: Performed By: #### L AB294 #### Tipple Repairer: JANELLE DANIELSON ([id number]) [facility] [address] [place] [address] WBC (Bld) [#/Vol] 5.7 10*3/uL Normal 3.6-10.7 [facility] Comment on above: Performed By: #### L AB294 #### Tipple Repairer: JANELLE DANIELSON ([id number]) [facility]) [address] [place] [address] 36on 02-11-2024 36 Forwarding to [facility] schedulers for advisement. [facility] 36 Name of Caller: Jyoti felix Contact Reason for Appointment: Nicole called with Gamaliel on the phone asking if patient is just going to be having the sling done at his surgery appointment on 03/10/24. Nicole stated that patient was under the impression that he would have the surgery for ED done at the same time. Please call Nicole back to advise. Office Name: Urology Medication Refills need, if any: N/A Medication Name: N/A Normal [facility] 36 Surgery packet mailed Normal [facility] 36 Patient's watts d to inquire about the patient's surgery details. All information given for PAT and surgery but they would still like a surgery packet mailed to their house. Appt with Dr. Babin on 02/14/24 has been cancelled, PSA in chart. Normal [facility] Free PSA [Mass/Vol]on 2023 Free PSA/Total PSA [Mass fraction] Normal [facility] Comment on above: Order Comment: Speci men Type: BLOOD SPECIMEN Ordering Facility: [facility] Address: [address] [place] [address] Result Comment: Unab le to calculate because free PSA is below assay range of 0.02 ng/mL. Total and free PSA test methodology used is the Electrochemiluminescence Immunoassay by [employer]. Total or free PSA values by differing methodologies cannot be interchanged. The below table lists the probability of finding prostate cancer upon needle biopsy, for men 50 years or older and total PSA concentrations from 4.0-10.0 ng/mL. Results should be interpreted within the broader clinical context. Free PSA(%) 50-59 years 60-69 years >69 years <11 49.2% 57.5% 64.5% 11-18 26.9% 33.9% 40.8% 19-25 18.3% 23.9% 29.7% >25 9.1% 12.2% 15.8% Performed By: #### 1 0886-0 #### [facility] CLIA [id number] [address] [place] [address] [place] Prostate specific Ag [Mass/Vol] 0.03 ng/mL Normal <2.60 [facility] Comment on above: Order Comment: Speci men Type: BLOOD SPECIMEN Ordering Facility: [facility] Address: [address] [place] [address] Result Comment: Tota l PSA test methodology used is the Electrochemiluminescence Immunoassay by [employer]. Total PSA values by differing methodologies cannot be interchanged. Performed By: #### 1 0886-0 #### [facility] CLIA [id number] [address] [place] [address] [place] PSA SerPl-mCncon 02-04-2024 Prostate specific Ag [Mass/Vol] 0.05 ng/mL Normal <2.60 [facility] Comment on above: Order Comment: Speci men Type: BLOOD SPECIMEN Ordering Facility: [facility] Address: [address] [place] [address] Result Comment: This is a new methodology for this marker. Tumor markers obtained from different assay methods cannot be used interchangeably. Expect results of this assay to run lower than the previous assay. It is recommended to re-baseline patients when changing to a new methodology. Performed By: #### 1 0886-0 #### [facility] CLIA [id number] [address] [place] [address] 37 01-30-2024 37 Pre and Postoperativ e Instructions - Male Sling Prior to Surgery: You will be given a copy of the BLOOD THINNER POLICY prior to your procedure. It is important that you adhere to these instructions and stop blood thinning medications (with physician approval) prior to surgery. For 3 days leading up to surgery, you will be asked to shower with ANTIBACTERIAL SOAP. Please scrub the genital area thoroughly. You will undergo an office cystoscopy to look inside the bladder and ensure there is no scar tissue. We will also check a urine sample to ensure you have no infection leading up to surgery. Your Hemoglobin A1c must be <9.0% in order to safely proceed with surgery. You should refrain from using all tobacco products, as these greatly impact wound healing. Day of Surgery: Following surgery, you may be admitted for overnight observation. If this is the case, a temporary catheter will be left in your bladder overnight. Most patients are discharged home the day of surgery. The catheter will be removed before you are discharged home and we will ensure you are able to empty your bladder. If you are unable to empty your bladder after surgery (which can happen in some men), know this is usually temporary and resolves within a couple of days. We will have two options if this is the case. Reinsert an indwelling catheter to temporarily drain your bladder and have you follow-up in the office in a couple of days. Teach you how to intermittently pass a small catheter to empty your bladder. Whether you are discharged or kept for observation, use ice packs/cool compresses to help with swelling and pain (do not apply directly to the skin). Your diet will be advanced as tolerated. Take it easy, some patients have nausea after anesthesia. What to expect after surgery: You will have one incision behind the scrotum and two small incisions that will be closed with absorbable sutures and skin glue will be applied. If the wounds open up, are red, or your experience drainage please contact the office immediately as this can be a sign of infection. You may experience some bruising or swelling. This is considered normal. Bruising may occur within the penis, scrotum, and area behind the scrotum (perineum). Continue to use cool compresses (bag of frozen vegetables works well), applying for 20 minutes at a time and then taking a break. Do not apply ice directly to your skin. Do not fall asleep with ice on your skin. If bruising is excessive, PLEASE CONTACT THE OFFICE so that we may evaluate you Use supportive underwear (does not have to be super tight), some people find this helps with discomfort. If you stopped any blood thinning medications, you may resume these 48 hours after surgery. It is ok to start taking NSAIDs (Ibuprofen/Motrin/Advil/Ann ve/Tordadol) immediately after surgery. Do not take multiple NSAIDs at the same time. These should be taken with food to help prevent GI upset. If you notice unusual bleeding or bruising, however, please contact the office. Avoid strenuous physical activity for 4-6 weeks. You should not lift more than about 20-25 lbs at once. You may walk around the house, and may go up/down stairs but try to limit your physical activity the first few days. Avoid all perineal pressure for 8 weeks. This includes the following bicycles horseback riding motorcycle, snowmobile Riding lawnmower Rock climbing/ anything requiring a harness around the pelvis You may shower 24-48 hours after surgery, and should continue to do so daily. Do not scrub the incisions, but it is ok to allow soapy water to wash over the incisions. Do not enter a swimming pool/hot tub/urban until you have been seen at your follow up appointment to ensure complete healing. Avoid squatting or spreading your hips open widely for the first 4-6 weeks. This is to prevent the sling from moving as it scars into place. Follow-up: You will be seen by myself or one of our Advanced Practice Providers about 3 and sometimes again at 6 weeks after surgery to ensure you are still doing well, or sooner as needed. If you are discharged with a catheter or are taught to self catheterize, you will be seen in a few days to re-evaluate emptying. I will see you back about 3 months after the surgery, and sooner as needed. Tissue healing and remodeling can take several months, and nerve regeneration can take up to a year. You may experience changes in sensation at first. This will likely change/evolve over time as the body continues to heal and I encourage you to be patient with your body. If, at any time, you experience any uncontrolled pain, urinary retention, swelling, fever, drainage from the incision site, or have any other cause for concern please contact the office RACHEL. If you experience a fever > 100.4 please go to the nearest ER for evaluation. Aric Linda, [facility] (more content not included)... Normal [facility] ALBUMIN/CREATININE RATIO, UR INEon 01-14-2024 Albumin DL <= 20 mg/L (U) [Mass/Vol] 24.0 mg/L High 0.0-19.0 [facility] Comment on above: Order Comment: Speci men Type: BLOOD SPECIMEN Ordering Facility: [facility] Address: [address] [place] [address] Performed By: #### 1 0886-0 #### [facility] CLIA [id number] [address] [place], [place] [address] [address] [place] Albumin/Creatinine (U) [Mass ratio] 37 mg/g High <30 [facility] Comment on above: Order Comment: Zakiya mina Type: BLOOD SPECIMEN Ordering Facility: [facility] Address: [address] [place] [address] Result Comment: Adul t Male and Female Nephrotic Criteria: <30 mg/g is considered normal to mildly increased 30-300 mg/g is considered moderately increased >300 mg/g is considered severely increased KDIGO. (2013). KDIGO 2012 Clinical Practice Guideline for the Evaluation and Management of Chronic Kidney Disease. Official Journal of the International Society of Nephrology, 3(1), 1-150. Performed By: #### 1 0886-0 #### [facility] CLIA [id number] [address] [id number] [place] Creatinine (U) [Mass/Vol] 65.0 mg/dL Normal 40.0-278.0 [facility] Comment on above: Order Comment: Speci men Type: BLOOD SPECIMEN Ordering Facility: [facility] Address: [address] [place] [address] Performed By: #### 1 0886-0 #### [facility] CLIA [id number] [address] [place], [place] [id number] [place] Comprehensive metabolic 2000 panelon 01-14-2024 Albumin [Mass/Vol] 3.6 g/dL Normal 3.2-5.0 [facility] Comment on above: Order Comment: Speci men Type: BLOOD SPECIMEN Ordering Facility: [facility] Address: [facility] [place] [address] Performed By: #### 2 4323-8 #### [facility] CLIA [id number] [address] [place] [address] [place] #### 42891-1 #### [facility] CLIA [id number] [address] [place] [address] [place] [facility] CLIA [id number] [address] [facility] [address] [place] [address] [place] ALP [Catalytic activity/Vol] 183 U/L High 45-117 [facility] Comment on above: Order Comment: Speci men Type: BLOOD SPECIMEN Ordering Facility: [facility] Address: [address] [place] [address] Performed By: #### 2 4323-8 #### [facility] CLIA [id number] [address] [place] [address] [place] #### 48525-4 #### [facility] CLIA [id number] [address] [place], [place] [address] [place] [facility] CLIA [id number] [address] [place] [address] [place] ALT [Catalytic activity/Vol] 30 U/L Normal 13-61 [facility] Comment on above: Order Comment: Speci men Type: BLOOD SPECIMEN Ordering Facility: [facility] Address: [address] [place] [address] Result Comment: Resu lts may be falsely depressed after the administration of Sulfasalazine and/or Sulfapyridine. Performed By: #### 2 4323-8 #### [facility] CLIA [id number] [address] [place] [address] STATES [facility] #### 50228-8 #### [facility] CLIA [id number] [address] [place] [address] LAB CLIA [id number] [address] [facility] [place] [address] [place] [address] [place] Anion gap [Moles/Vol] 7 mmol/L Normal 5-16 [facility] Comment on above: Order Comment: Speci men Type: BLOOD SPECIMEN Ordering Facility: [facility] Address: [address] [place] [address] [place] [address] Performed By: #### 2 4323-8 #### [facility] CLIA [id number] [address] [place] [address] #### 43697-9 #### [facility] CLIA [id number] [address] [place] [address] LAB CLIA [id number] [address] [place] [address] [place] AST [Catalytic activity/Vol] 35 U/L High 8-34 [facility] Comment on above: Order Comment: Speci men Type: BLOOD SPECIMEN Ordering Facility: [facility] Address: [address] [place] [address] Result Comment: Resu lts may be falsely depressed after the administration of Sulfasalazine and/or Sulfapyridine. Performed By: #### 2 4323-8 #### [facility] CLIA [id number] [address] [place] [address] [place] [address] [place] #### 88580-0 #### [facility] CLIA [id number] [address] [place] [address] [facility] CLIA [id number] [address] [place] [address] [place] Bilirubin [Mass/Vol] 1.1 mg/dL High 0.2-1.0 [facility] Comment on above: Order Comment: Speci men Type: BLOOD SPECIMEN Ordering Facility: [facility] Address: [address] [place] [address] Performed By: #### 2 4323-8 #### [facility] CLIA [id number] [address] [place] [address] [place] #### 47360-9 #### [facility] CLIA [id number] [address] [place], [place] [address] [place] [facility] CLIA [id number] [address] [facility] [address] [place] [address] [place] Calcium [Mass/Vol] 9.9 mg/dL Normal 8.5-10.5 [facility] Comment on above: Order Comment: Speci men Type: BLOOD SPECIMEN Ordering Facility: [facility] Address: [address] [place] [address] Performed By: #### 2 4323-8 #### [facility] CLIA [id number] [address] [place] [address] [place] #### 67292-5 #### [facility] CLIA [id number] [address] [place], [place] [id number] [place] [facility] CLIA [id number] [address] [place] [address] [place] Chloride [Moles/Vol] 103 mmol/L Normal 98-107 [facility] Comment on above: Order Comment: Speci men Type: BLOOD SPECIMEN Ordering Facility: [facility] Address: [address] [place] [address] Performed By: #### 2 4323-8 #### [facility] CLIA [id number] [address] [place] [address] [place] #### 55085-6 #### [facility] CLIA [id number] [address] [place], [place] [id number] [place] [facility] CLIA [id number] [address] [place] [address] [place] CO2 [Moles/Vol] 30 mmol/L Normal 21-32 [facility] Comment on above: Order Comment: Speci men Type: BLOOD SPECIMEN Ordering Facility: [facility] Address: [address] [place] [address] Performed By: #### 2 4323-8 #### [facility] CLIA [id number] [address] [place] [address] [place] #### 56396-7 #### [facility] CLIA [id number] [address] [place] [address] STATES [facility] CLIA [id number] 7337 [facility] [address] [place] [address] STATES [facility] Creatinine [Mass/Vol] 0.92 mg/dL Normal 0.50-1.40 [facility] Comment on above: Order Comment: Speci men Type: BLOOD SPECIMEN Ordering Facility: [facility] Address: [address] [place] [address] Result Comment: Marysol ents receiving either N-Acetylcysteine (NAC) or Metamizole prior to venipuncture, may have falsely depressed results. Performed By: #### 2 4323-8 #### [facility] CLIA [id number] [address] [place] [address] [place] #### 73483-3 #### [facility] CLIA [id number] [address] [place], [place] [address] [place] OF [facility] CLIA [id number] [id number] [place] [address] STATES [facility] Creatinine and Glomerular filtration rate.predicted panel (S/P/Bld) 86 mL/min/1.73m??? Normal >=60 [facility] Comment on above: Order Comment: Zakiya mina Type: BLOOD SPECIMEN Ordering Facility: [facility] Address: [address] [place] [address] Result Comment: Starr mated Glomerular Filtration Rate (eGFR) is calculated using the 2020 CKD-EPI creatinine equation. This equation utilizes serum creatinine, sex, and age as parameters. The creatinine assay has traceable calibration to isotope dilution-mass spectrometry. Refer to KDIGO guidelines for clinical interpretation. In patients with unstable renal function, e.g. those with acute kidney injury, the eGFR may not accurately reflect actual GFR. Performed By: #### 2 4323-8 #### [facility] CLIA [id number] [address] [place] [address] #### 92266-8 #### [facility] CLIA [id number] [address] [place] [address] [place] [facility] CLIA [id number] [address] [place] [address] [place] Glucose [Mass/Vol] 97 mg/dL Normal 70-100 [facility] Comment on above: Order Comment: Zakiya mina Type: BLOOD SPECIMEN Ordering Facility: [facility] Address: [address] [place] [address] Result Comment: The [place] Diabetes Association (ADA) provides guidance for cutoff values for fasting glucose and random glucose. The ADA defines fasting as no caloric intake for at least 8 hours. Fasting plasma glucose results between 100 to 125 mg/dL indicate increased risk for diabetes (prediabetes). Fasting plasma glucose results greater than or equal to 126 mg/dL meet the criteria for diagnosis of diabetes. In the absence of unequivocal hyperglycemia, results should be confirmed by repeat testing. In a patient with classic symptoms of hyperglycemia or hyperglycemic crisis, random plasma glucose results greater than or equal to 200 mg/dL meet the criteria for diagnosis of diabetes. Reference: Standards of Medical Care in Diabetes 2016, [place] Diabetes Association. Diabetes Care. 2016.39(Suppl 1). Results may be falsely elevated after the administration of Sulfapyridine. Results may be falsely depressed after the administration of Sulfasalazine. Performed By: #### 2 4323-8 #### [facility] CLIA [id number] [facility] [place] [address] [place] #### 86128-2 #### [facility] CLIA [id number] [address] [place] [address] [place] [facility] CLIA [id number] [address] [place] [address] [place] [address] [place] Potassium [Moles/Vol] 4.0 mmol/L Normal 3.5-5.1 [facility] Comment on above: Order Comment: Speci men Type: BLOOD SPECIMEN Ordering Facility: [facility] Address: [address] [place] [address] [place] [address] Performed By: #### 2 4323-8 #### [facility] CLIA [id number] [address] [place] [address] [place] #### 58608-8 #### [facility] CLIA [id number] [address] [place] [address] [place] [facility] CLIA [id number] [address] [place] [address] [place] [address] [place] Protein [Mass/Vol] 7.0 g/dL Normal 6.0-8.5 [facility] Comment on above: Order Comment: Speci men Type: BLOOD SPECIMEN Ordering Facility: [facility] Address: [address] [place] [address] Performed By: #### 2 4323-8 #### [facility] CLIA [id number] [address] [place] [address] [place] #### 48435-9 #### [facility] CLIA [id number] [address] [place], [place] [address] [place] [facility] CLIA [id number] 7337 [facility] [address] [place] [address] [place] Sodium [Moles/Vol] 140 mmol/L Normal 136-145 [facility] Comment on above: Order Comment: Zakiya mina Type: BLOOD SPECIMEN Ordering Facility: [facility] Address: [address] [place] [address] Performed By: #### 2 4323-8 #### [facility] CLIA [id number] [address] [place] [address] [place] #### 04155-4 #### [facility] CLIA [id number] [address] [place], [place] [address] [place] [facility] CLIA [id number] [address] [place] [address] [place] Urea nitrogen [Mass/Vol] 13 mg/dL Normal 7-26 [facility] Comment on above: Order Comment: Zakiya mina Type: BLOOD SPECIMEN Ordering Facility: [facility] Address: [address] [place] [address] Performed By: #### 2 4323-8 #### [facility] CLIA [id number] [address] [place] [address] [place] #### 08275-5 #### [facility] CLIA [id number] [address] [place], [place] [address] [place] [facility] CLIA [id number] [address] [place] [address] [place] HbA1c (Bld)on 01-14-2024 Average glucose Estimated from glycated hemoglobin (Bld) [Mass/Vol] 88 mg/dL Normal [facility] Comment on above: Order Comment: Zakiya men Type: BLOOD SPECIMEN Ordering Facility: [facility] Address: [address] [place] [address] Result Comment: eAG: (Estimated average glucose) is a calculated value from HgbA1c and is associate financial representative of the average blood glucose level in the last 2-3 month period. Performed By: #### 1 0886-0 #### [facility] CLIA [id number] [facility] [place] [id number] [place] HbA1c (Bld) [Mass fraction] 4.7 % Normal 4.3-5.6 [facility] Comment on above: Order Comment: Zakiya mina Type: BLOOD SPECIMEN Ordering Facility: [facility] Address: [address] [place] [address] Result Comment: Amer ican Diabetes Association guidelines indicate that patients with HgbA1c in the range 5.7-6.4% are at increased risk for development of diabetes, and intervention by lifestyle modification may be beneficial. HgbA1c greater or equal to 6.5% is considered diagnostic of diabetes. Performed By: #### 1 0886-0 #### [facility] CLIA [id number] [address] [place] [address] [place] Lipid 1996 panelon 4 Cholesterol [Mass/Vol] 112 mg/dL Normal 0-199 [facility] Comment on above: Order Comment: Zakiya mina Type: BLOOD SPECIMEN Ordering Facility: [facility] Address: [address] [place] [address] Result Comment: <200 mg/dL, Desirable 200-239 mg/dL, Borderline high >239 mg/dL, High Performed By: #### 2 4323-8 #### [facility] CLIA [id number] [address] [place] [address] [place] #### 61055-0 #### [facility] CLIA [id number] [facility] [place] [address] [place] [facility] CLIA [id number] 7337 [facility] [address] [place] [address] [place] Cholesterol in HDL [Mass/Vol] 36 mg/dL Low >40 [facility] Comment on above: Order Comment: Zakiya leopoldo Type: BLOOD SPECIMEN Ordering Facility: [facility] Address: [address] [place] [address] Result Comment: 40-5 9 mg/dL, Acceptable >59 mg/dL, High: Negative risk factor for coronary heart disease <40 mg/dL, Low: Positive risk factor for coronary heart disease Performed By: #### 2 4323-8 #### [facility] CLIA [id number] [address] [place] [address] #### 46310-8 #### [facility] CLIA [id number] [address] [place] [address] LAB CLIA [id number] 7337 [facility] [address] [place] [address] Cholesterol in LDL [Mass/Vol] 54 mg/dL Normal 0-129 [facility] Comment on above: Order Comment: Speci men Type: BLOOD SPECIMEN Ordering Facility: [facility] Address: [address] [place] [address] [place] [address] Result Comment: <100 mg/dL, Optimal 100-129 mg/dL, Near optimal/above optimal 130-159 mg/dL, Borderline high 160-189 mg/dL, High >189 mg/dL, Very high Secondary prevention optimal LDL Cholesterol levels are recommended to be < 70 mg/dL Performed By: #### 2 4323-8 #### [facility] CLIA [id number] [address] [place] [address] #### 39803-2 #### [facility] CLIA [id number] [address] [place] [address] LAB CLIA [id number] 7337 [facility] [address] [place] [address] Cholesterol in LDL/Cholesterol in HDL [Mass ratio] 1.50 {ratio} Normal <2.54 [facility] Comment on above: Order Comment: Speci men Type: BLOOD SPECIMEN Ordering Facility: [facility] Address: [address] [place] [address] [place] [address] Result Comment: Refe rence: 1. National Cholesterol Education Program ATP III Guideline At-A-Glance Quick Desk Reference: National Heart, Lung, and Blood [place]. National Institutes of Health. 2001: NIH Publication No. 01-3305. 2. An International Atherosclerosis Society position paper: global recommendations for the management of dyslipidemia: executive summary, Atherosclerosis. 2014: 232(2):410-413. Performed By: #### 2 4323-8 #### [facility] CLIA [id number] [address] [place] [address] [place] #### 58235-6 #### [facility] CLIA [id number] [facility] [place] [id number] [place] [facility] CLIA [id number] [address] [address] [place] [address] [place] Cholesterol in VLDL [Mass/Vol] 22 mg/dL Normal <30 [facility] Comment on above: Order Comment: Speci men Type: BLOOD SPECIMEN Ordering Facility: [facility] Address: [address] [place] [address] [place] [address] Performed By: #### 2 4323-8 #### [facility] CLIA [id number] [address] [place] [address] [place] #### 61889-3 #### [facility] CLIA [id number] [address] [place] [address] LAB CLIA [id number] [address] [facility] [address] [place] [id number] [place] [address] [place] Cholesterol non HDL [Mass/Vol] 76 mg/dL Normal <130 [facility] Comment on above: Order Comment: Speci men Type: BLOOD SPECIMEN Ordering Facility: [facility] Address: [address] [facility] [place] [address] Result Comment: <130 mg/dL, Optimal 130-159 mg/dL, Near optimal/above optimal 160-189 mg/dL, Borderline high 190-219 mg/dL, High >219 mg/dL, Very high Secondary prevention optimal non HDL Cholesterol levels are recommended to be <100 mg/dL Performed By: #### 2 4323-8 #### [facility] CLIA [id number] [facility] [address] [place] #### 00729-9 #### [facility] CLIA [id number] [address] [place] [address] [facility] CLIA [id number] 7337 [facility] [address] [place] [address] Cholesterol.total/Chol esterol in HDL [Mass ratio] 3.11 {ratio} Normal <5.10 [facility] Comment on above: Order Comment: Speci men Type: BLOOD SPECIMEN Ordering Facility: [facility] Address: [address] [place] [address] Performed By: #### 2 4323-8 #### [facility] CLIA [id number] [address] [place] [address] [place] #### 41581-5 #### [facility] CLIA [id number] [address] [place], [place] [address] [place] [facility] CLIA [id number] 7[address] [facility] [address] [place] [address] [place] FASTING TIME 13 hrs Normal [facility] Comment on above: Order Comment: Speci men Type: BLOOD SPECIMEN Ordering Facility: [facility] Address: [address] [place] [id number] Performed By: #### 2 4323-8 #### [facility] CLIA [id number] [address] [place] [address] [place] #### 42995-6 #### [facility] CLIA [id number] [address] [place], [place] [address] [place] [facility] CLIA [id number] [address]337 [facility] [address] [place] [address] [place] Triglyceride [Mass/Vol] 112 mg/dL Normal 30-149 [facility] Comment on above: Order Comment: Speci men Type: BLOOD SPECIMEN Ordering Facility: [facility] Address: [address] [place] [address] Result Comment: <150 mg/dL, Normal 150-199 mg/dL, Borderline high 200-499 mg/dL, High >499 mg/dL, Very high Patients receiving either N-Acetylcysteine (NAC) or Metamizole prior to venipuncture, may have falsely depressed results. Performed By: #### 2 4323-8 #### [facility] CLIA [id number] [address] [place] [address] [facility] #### 62390-2 #### [facility] CLIA [id number] [address] [place], [place] [address] [facility] CLIA [id number] [address] [place] [id number] [place] [address] OF [facility] CNOVon 01-07-2024 CNOV Office Visit ([facility] ) CADE ISLAS ([id number]) 1945 M Date Time Provider Department 01/07/24 10:40 AM BRUNILDA CRUZ [facility] During your visit today, we recorded the following information about you: Pulse Blood pressure Weight Height 60/minute 112/72 94.3 kg 1.727 m Brunilda Cruz APRN.EPIC AMBULATORY ANALYST 01/07/2024 10:[address] [facility] Nir Le MD SUBJECTIVE: Cade Islas is a 78 year old male who is here today for a follow up visit. The patient is doing well from the cardiovascular standpoint. He denies chest pain, shortness of breath, palpitations, PND, orthopnea, syncope, near-syncope, or edema. PAST MEDICAL HISTORY Diagnosis Date Anxiety AV node dysfunction Benign hypertension BPH (benign prostatic hyperplasia) Chronic pain CKD (chronic kidney disease) stage 2, GFR 60-89 ml/min DM II (diabetes mellitus, type II) ([facility]) H/O echocardiogram 02/21/2023 EF 64? 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 Sick sinus syndrome, AV node dysfunction, paroxysmal A-fib, LVEF 64% by echo, BMI 31, PVCs, Xarelto anticoagulation. Pacer by Dr. Acuna at [facility]. PAF (paroxysmal atrial fibrillation) (HCC) Polyneuropathy Prostate CA (HCC) PVC's (premature ventricular contractions) Sinus bradycardia PAST SURGICAL HISTORY Procedure Laterality Date F TRIAL SPINAL CORD STIMULATOR FORCEPS ESOPHAGEAL BIOPSY PERFORMED HAND LEFT OP SURGERY x5 HAND RIGHT OP SURGERY x 4 PACEMAKER DUAL Left 04/04/2023 Dual pacer (Biotronik) LBB area pacing. Sick sinus syndrome, AV node dysfunction, paroxysmal A-fib, LVEF 64% by echo, BMI 31, PVCs, Xarelto anticoagulation. Pacer by Dr. Acuna at [facility]. PROSTATE BIOPSY REMOVAL GALLBLADDER 01/2023 FAMILY HISTORY Problem Relation Age of Onset No Known Problems Brother Cancer Maternal Grandmother SOCIAL HISTORY: Social History Tobacco Use Smoking status: Never Passive exposure: Never Smokeless tobacco: Never Vaping Use Vaping status: Never Used Substance Use Topics Alcohol use: Never Drug use: Never ALLERGIES: Patient has no known allergies. CURRENT MEDICATIONS: Current Outpatient Medications Medication Sig rivaroxaban (XARELTO) 20 mg tablet Take 1 tablet by mouth daily with dinner. sotalol (BETAPACE) 240 mg tablet Take 1 tablet by mouth every 12 hours. HYDROcodone-Acetaminophen (NORCO) 7.5-325 mg per tablet Take 1 tablet by mouth every 6 hours as needed. Cholecalciferol, Vitamin D3, 125 mcg/mL (5,000 unit/mL) drop Take 5,000 Units by mouth every morning. semaglutide (OZEMPIC) 2 mg/dose (8 mg/3 mL) pen injector Inject 2 mg subcutaneously one time a week. Takes on Wednesdays VITAMIN B COMPLEX ORAL Take 1 tablet by mouth once daily. amitriptyline (ELAVIL) 100 mg tablet Take 100 mg by mouth daily at bedtime. atorvastatin (LIPITOR) 10 mg tablet Take 10 mg by mouth daily at bedtime. fluticasone (FLONASE) 50 mcg/actuation nasal spray Use 1 [place] in each nostril as needed. gabapentin (NEURONTIN) 600 mg tablet Take 600 mg by mouth three times a day. levothyroxine (SYNTHROID) 50 mcg tablet Take 50 mcg by mouth daily before breakfast. lisinopril (ZESTRIL) 40 mg tablet Take 40 mg by mouth two times a day. metFORMIN (GLUCOPHAGE) 500 mg tablet Take 1,000 mg by mouth two times a day with meals. potassium chloride SR (MICRO-K) 10 mEq CR capsule Take 10 mEq by mouth every morning. No current facility-administered medications for this visit. Review of Systems Constitutional: Negative for activity change and fever. Respiratory: Negative for apnea, cough, chest tightness, shortness of breath, wheezing and stridor. Cardiovascular: Negative for chest pain, palpitations and leg swelling. Gastrointestinal: Negative for abdominal distention, diarrhea and vomiting. Musculoskeletal: Negative for joint swelling, neck pain and neck stiffness. Skin: Negative for color change, pallor and rash. Neurological: Negative for dizziness, syncope, weakness, light-headedness and numbness. Hematological: Does not bruise/bleed easily. Psychiatric/Behavioral: Negative for agitation, behavioral problems and confusion. The patient is not nervous/anxious. All other systems reviewed and are negative. PHYSICAL EXAMINATION: 01/07/24 1015 BP: 112/72 BP Position: Sitting Pulse: 60 Weight: 94.3 kg (208 lb) Height: 172.7 cm (5' 8) Last 3 Encounter BP Readings: Date: BP: 06/29/2023 142/67 05/14/2023 122/72 04/30/2023 128/64 Last 3 Encounter Pulse Readings: Date: Pulse: 06/29/2023 67 05/14/2023 72 04/30/2023 60 Last 3 Encounter Wt Rosemary (more content not included)... Normal [facility] CADE ISLAS ([id number]) 1945 M Date Time Provider Department 01/07/24 10:00 AM [id number] During your visit today, we recorded the following information about you: Yogesh Acuna MD 01/09/2024 9:33 AM Signed Dual Pacer in office Check Date: January 07, 2024 Time: 9:14 AM Devices: Implants Lead Ra Lead Biotronik-04/04/2023 - Implanted Heart Model/Cat number: REBECA [id number] Serial number: [id number] Reservations Agent: [employer] Lot number: LEFT AXILLARY VEIN Size: Right Atrial Pacing Lead Left Bundle Branch Area Ventricular Lead Biotronik-04/04/2023 - Implanted Heart Model/Cat number: REBECA Swift [id number] Serial number: [id number] Reservations Agent: [employer] Lot number: LEFT AXILLARY VEIN Size: Left Bundle Branch Area Ventricular Lead Pacemaker Dual Pacer Biotronik-04/04/2023 - Implanted (Left) Chest Wall Model/Cat number: EDORA [id number] Serial number: [id number] Reservations Agent: [employer] Lot number: INITIAL DUAL PACER; LBB AREA PACING Size: Sick sinus syndrome, AV node dysfunction, paroxysmal A-fib, LVEF 64% by echo, BMI 31, PVCs, Xarelto anticoagulation. Last Interrogation Date: 04-04-2023 Estimated Remaining Longevity: 9 years until RADHA Underlying Rhythm: Sinus Rhythm Interrogation Performed by: Janelle Chaudhary LPN Programming Parameters Mode: DDD-CLS Lower Rate: 60 Upper Track: 140 Upper Sensor: 130 Paced AV Delay: 220 Sensed AV Delay: 180 Atrial Refractory: ind Mode Switch: 160 Additional Device Information -VS percent: 1% -PRODUCT TRANSFER PUMPER percent: 0% AP-VS percent: 71% AP-PRODUCT TRANSFER PUMPER percent: 26% Atrial: Threshold: 0.5 V @ 0.4 msec Programmed amp/PW: 1.5 V @ 0.4 msec P wave: 3.5 mV Sensitivity: auto Impedance: 292 ohms Pacing percent: 90% Right Ventricle: Threshold: 0.5 V @ 0.4 msec Programmed amp/PW: 1.0 V @ 0.4 msec R wave: 11.8 mV Sensitivity: auto Impedance: 390 ohms RV pacin% Episodes: Atrial Fib count: 15 Atrial burden: 3% Mode Switch episodes: 0 Ventricular Fibrillation count: 0 Fast Ventricular Tachycardia count: 0 Slow Ventricular Tachycardia: 0 NSVT: 0 Summary: Normal device function. Normal pacing and sensing threshold. Battery: 9 yrs until RADHA. Histogram: ok. Atrial episodes: 15 AFIB events, 3% of the time. None since September 2023. Ventricular episodes: none. Changes: per auto threshold testing Follow up: 3 month device check and provider appointment. View External Cardiology - Correctional Nurse Strips [ID [id number]] Allergies As of Date: 01/07/2024 (No Known Allergies) Date Reviewed: 01/07/2024 Reviewed by: Brunilda Cruz APRN.EPIC AMBULATORY ANALYST - Fully Assessed Reason for Visit: Permanent Pacemaker [1364] Primary Visit Diagnosis:Encounter for care of pacemaker [Z45.018] Prescriptions as of 01/09/2024 - rivaroxaban (XARELTO) 20 mg tablet Take 1 tablet by mouth daily with dinner. - sotalol (BETAPACE) 240 mg tablet Take 1 tablet by mouth every 12 hours. - HYDROcodone-Acetaminophen (NORCO) 7.5-325 mg per tablet Take 1 tablet by mouth every 6 hours as needed. - Cholecalciferol, Vitamin D3, 125 mcg/mL (5,000 unit/mL) drop Take 5,000 Units by mouth every morning. - semaglutide (OZEMPIC) 2 mg/dose (8 mg/3 mL) pen injector Inject 2 mg subcutaneously one time a week. Takes on Wednesdays - VITAMIN B COMPLEX ORAL Take 1 tablet by mouth once daily. - amitriptyline (ELAVIL) 100 mg tablet Take 100 mg by mouth daily at bedtime. - atorvastatin (LIPITOR) 10 mg tablet Take 10 mg by mouth daily at bedtime. - fluticasone (FLONASE) 50 mcg/actuation nasal spray Use 1 [place] in each nostril as needed. - gabapentin (NEURONTIN) 600 mg tablet Take 600 mg by mouth three times a day. - levothyroxine (SYNTHROID) 50 mcg tablet Take 50 mcg by mouth daily before breakfast. - lisinopril (ZESTRIL) 40 mg tablet Take 40 mg by mouth two times a day. - metFORMIN (GLUCOPHAGE) 500 mg tablet Take 1,000 mg by mouth two times a day with meals. - potassium chloride SR (MICRO-K) 10 mEq CR capsule Take 10 mEq by mouth every morning. Problem List As Of Date 01/07/2024 Noted Resolved Prostate CA (HCC) [C61] 01/26/2023 Polyneuropathy [G62.9] 01/26/2023 PAF (paroxysmal atrial fibrillation) (HCC) [I48*01/26/2023 Mixed hyperlipidemia [E78.2] 01/26/2023 assisted current use of anticoagulant [Z79.01] 01/26/2023 Insomnia [G47.00] 01/26/2023 Hypothyroidism [E03.9] 01/26/2023 History of stress test [Z92.89] 09/25/2022 DM II (diabetes mellitus, type II) (HCC) [E11.9]01/26/2023 CKD (chronic kidney disease) [N18.9] 01/26/2023 Chronic pain [G89.29] 01/26/2023 BPH (benign prostatic hyperplasia) [N40.0] 01/26/2023 Benign hypertension [I10] 01/26/2023 Anxiety [F41.9] 01/26/2023 Obesity (BMI 30.0-34.9) [E66.811] 02/06/2023 CKD (chronic kidney disease) stage 2, GFR 60-89*02/06/2023 PVC's (calvin (more content not included)... [facility] Office Visiton 01-02-2024 Follow-up visit [id number] Cade Islas Gladys 1945 M Date Provider Department Center 01/02/2024 [id number]-YIMMARIC LINDA [facility] None Family History Problem Relation Age of Onset Hypertension Paternal Grandfather Cancer Paternal Grandmother Family Status - Relation Status Age at Father Mother Paternal Grandfather Paternal Grandmother Level of Service:27011 NC OFFICE/OUTPATIENT ESTABLISHED MOD MDM 30 MIN Reason for Visit and Comments: Prostate Cancer [309] - Conference [facility] PATINSon 01-02-2024 PATINS Options for Vacuum E rection Devices for penile rehabilitation and Erectile Dysfunction [employer] (different options for vacuums and constriction bands) Https://[email or web address] .[email or web address]/ [place] Esteem Manual Vacuum Pump (rubber band size C is most common) [email or web address].Therapydia/erik borjas/yqeayi-qrkyioh-gldjqzn/os bonesteem- Manual/ [place] [employer] [email or web address]://www.Dibspace/ Normal [facility] Progress Noteon 01-02-2024 Progress Note Aric delgado DO Urology Office Visit Established patient [facility] [address] [facility] [address] Dept: [phone] Dept Loc: [phone] PATIENT NAME: Cade Islas DATE OF : 1945 REFERRING PROVIDER: No ref. provider found PCP: Nir Le MD DATE OF VISIT: 01/02/24 CHIEF COMPLAINT: Chief Complaint Patient presents with Prostate Cancer Conference Impression: Diagnoses and all orders for this visit: Stress incontinence, male Erectile dysfunction after radical prostatectomy Prostate cancer (HCC) . Plan: Reviewed treatment options for male stress incontinence with patient and his today Based on symptoms of 2-3 pads per day, would likely be a good candidate for a male urethral sling He will try stopping his stream during urination over the next couple of weeks and focus on how many pads he is using every day Will have him return for office cystoscopy to rule out any urethral pathology or bladder pathology For erectile dysfunction we discussed treatment options including higher doses of oral medications, vacuum erection device, intracavernosal injection and penile prosthesis Information was given regarding vacuum erection device. Use of this for 10 to 15 minutes 1-2 times a day can help improve penile length after prostatectomy by means of daily stretching At this time he would like to think about options before making a decision Will have him return for office evaluation, cystoscopy On this date I spent 45 minutes [id number] with patient and his reviewing treatment options for stress incontinence as well as erectile dysfunction after radical prostatectomy Follow Up: Follow up for office cystoscopy (ADELSO eval) . Aric Linda DO Reconstructive Urology [facility] [place]: Mr. Isals is a 78 y.o. male who presents to the office for stress incontinence, erectile dysfunction. Records have been reviewed HPI HPI Mr. Islas is a 78 y.o. male who presents to the office for stress urinary incontinence. He has a history of prostate cancer which was treated by RALP in March 2023. Reports leakage is daily, and describes his urinary stream as constant, comes on quickly Does have nighttime urinary leakage He cannot stop urinary stream once started. Maybe decrease? Leakage is worse with coughing, when he doesn't think about it he will leak He has tried PFPT for his incontinence. He does use incontinence pads/briefs. (2-3 ppd) large pads, rarely soaked. He uses incontinence briefs as well for nighttime leakage He does not have history of UTI Does not have history of gross hematuria Does not strain with urination He does not have history of bladder neck contracture or urethral sphincter There none any known history of bladder cancer. In June he did have bilateral pelvic fluid collections/lymphoceles Right side was drained Culture positive for Klebsiella Also has erectile dysfunction; was having erections prior to surgery Since surgery, has tried nothing Tried some left over cialis, 20 mg? Endorses desire Pertinent history: BMI: Body mass index is 30.41 kg/m?. Diabetes? Yes - well controlled HbA1c: No components found for: LABA1C 5.1% Prior IPP? No Previous inguinal hernia repair? No History of prostatectomy? Yes - March 2023 History of artificial urinary sphincter (AUS) or male urethral sling? No History of pelvic radiation? No History of pelvic fracture? No History of urethral stricture disease? No History of urinary tract infection? No History of renal or pancrease transplant? No Currently on immunosuppression? No Blood thinners? Yes - Xarelto for Afib (no DVT) Current tobacco use? No Other: Right handed; had pelvic abscess/fluid collection in June which was drained, has a left sided lymphocele Would be a good candidate for either Sling or AUS Leaning towards sling based on number of pads per day at this time He reports erectile dysfunction since his surgery He has trouble achieving erections. He does not get nocturnal erections. He has tried medications previously for erections - including tadalafil with no success. Additional prior treatment includes none We discussed various options to managing erectile dysfunction including oral PDE5i vacuum erection devices (RAFAEL) intracavernosal injections (ICI) intraurethral suppositories (inflatable) penile prosthesis (IPP) ED treatment option handout given for patient to review. Advised to visit [email or web address] to view more information if desired. Tobacco History reports that he has never smoked. He has never used smokeless tobacco. Review of Systems Review of Systems Constitutional: Negative. HENT: Negative. Gastrointestinal: Negative. Genitourinary: Positive for enuresis, frequency and urgency. Past Medical History: Past Medical History: (more content not included)... Normal [facility] CT THORAX W/O CONTRASTon CT THORAX W/O CONTRAST ORIGINAL EXAMINATION: CT OF THE CHEST WITHOUT CONTRAST 12/13/2023 1:11 pm TECHNIQUE: CT of the chest was performed without the administration of intravenous contrast. Multiplanar reformatted images are provided for review. Automated exposure control, iterative reconstruction, and/or weight based adjustment of the mA/kV was utilized to reduce the radiation dose to as low as reasonably achievable. COMPARISON: CT abdomen and pelvis 02/05/2023 HISTORY: ORDERING SYSTEM PROVIDED HISTORY: Reason for Exam: MULTIPLE LUNG NODULE pt states f/u no other complaints, history of prostate cancer. FINDINGS: Thyroid is unremarkable. Esophagus is normal in caliber. Heart is normal in size without pericardial effusion. A left-sided dual lead pacemaker is noted with leads terminating within the right atrium and right ventricle. Mild ectasia of the ascending thoracic aorta measuring up to 4.2 cm in maximum diameter. Mild atherosclerotic calcifications within the thoracic aorta. The main pulmonary artery is dilated measuring up to 3.4 cm in maximum diameter suggesting underlying pulmonary arterial hypertension. Moderate multivessel coronary artery calcifications. No pathologically enlarged mediastinal, hilar or axillary lymph nodes. Trachea and mainstem bronchi are patent. Small ground-glass opacity is noted within the medial right upper lobe. No focal consolidation, pleural effusion or pneumothorax. There are few right middle lobe pulmonary nodules measuring up to 5 mm. There are a couple left posterior lower lobe subpleural nodules measuring up to 6 mm. There is a 2 mm left upper lobe pulmonary nodule (series 4, image 33). There is a 3 mm lingular juxtapleural nodule (series 4 image 44). Bilateral gynecomastia is noted. There is a nodular contour to the liver suggesting underlying cirrhosis. Spleen is likely enlarged but not completely imaged on this exam. Neurostimulator lead is noted within the thoracic spine. No aggressive osseous lesions. Severe multilevel degenerative changes throughout the visualized spine. There are findings suggestive of DISH within the thoracic spine. IMPRESSION: Small ground-glass opacity within the medial right upper lobe is favored to be infectious/inflammatory in etiology. Recommend short-term follow-up in 8-12 weeks to ensure resolution Small bilateral pulmonary nodules as described above. Attention on follow-up is recommended. Mild ectasia of the ascending thoracic aorta measuring up to 4.2 cm. Dilated main pulmonary artery suggests underlying pulmonary arterial hypertension. 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 Interpreted by: Nurys Acosta Preliminary Report By: Nurys Acosta Electronically signed By Nurys Acosta Dictated Date: 12/14/2023 1:36:27 PM Prelim Date: 12/14/2023 1:49:35 PM Sign Date: 12/14/2023 1:49:35 PM Ordering Provider: NIR Carcamo [facility] Ferritin [facility]Pl-[facility] 2023 Ferritin [Mass/Vol] 11.8 ng/mL Low 24.0-388.0 [facility] Comment on above: Order Comment: Zakiya mina Type: BLOOD SPECIMEN Ordering Facility: [facility] Address: [address] [place] [address] Performed By: #### 2 276-4, 41940-7 #### [facility] CLIA [id number] [address] [place] [address] [place] Iron and Iron binding capaci [facility] 11-30-2023 Iron [Mass/Vol] 49 ug/dL Low 65-175 [facility] Comment on above: Order Comment: Zakiya mina Type: BLOOD SPECIMEN Ordering Facility: [facility] Address: [address] [place] [address] Result Comment: Marysol ents treated with metal-binding drugs (e.g.deferoxamine) may have depressed iron values, as chelated iron may not properly react in the Siemens iron assay. Performed By: #### 2 276-4, 47078-8 #### [facility] CLIA [id number] [address] [place], [place] [id number] [place] Iron binding capacity [Mass/Vol] 417 ug/dL Normal 221-481 [facility] Comment on above: Order Comment: Zakiya mina Type: BLOOD SPECIMEN Ordering Facility: [facility] Address: [address] [place] [address] Performed By: #### 2 276-4, 27304-3 #### [facility] CLIA [id number] [address] [place] [address] [place] Iron/TIBC [Molar ratio] 11.8 % Low 22.0-44.0 [facility] Comment on above: Order Comment: Speci men Type: BLOOD SPECIMEN Ordering Facility: [facility] Address: [address] [place] [address] Performed By: #### 2 276-4, 83621-5 #### [facility] CLIA [id number] [address] [place] [address] [place] 36on 11-19-2023 36 Lab ordered mailed t o pt address on file [facility] 36 Lab order placed [facility] 36on 11-15-2023 36 Patient's stefanie milian to ask us to mail them a paper copy of his PSA lab order so they can have it drawn at [facility]. Pt aware to have PSA drawn 2 weeks prior to appt. Can someone please enter a PSA order for the patient and I will mail it to him? [facility] Office Visiton 11-14-2023 Follow-up visit [id number] Cade Islas 1945 M Date Provider Department Center 11/14/2023 AVTAR BARCENAS [facility] None Family History Problem Relation Age of Onset Hypertension Paternal Grandfather Cancer Paternal Grandmother Family Status - Relation Status Age at Father Mother Paternal Grandfather Paternal Grandmother Level of Service:57429 NC OFFICE/OUTPATIENT ESTABLISHED MOD MDM 30 MIN Reason for Visit and Comments: Follow-up [372253] Prostate Cancer [309] [facility] Progress Noteon 11-14-2023 Progress Note Avtar Babin MD 11/14/2023 at 2:09 PM Office follow up PATIENT NAME: Cade Islas DATE OF : 1945 TODAY'S DATE: 11/14/2023 CHIEF COMPLAINT: Chief Complaint Patient presents with Follow-up Prostate Cancer Subjective: Mr. Islas is a 78 y.o. male who presents to the office for follow up of prostate cancer He did undergo robotic assisted laparoscopic radical prostatectomy and bilateral pelvic lymph node dissection 04/23/23 Has had post op stress incontinence. He has been evaluated by pelvic floor PT. Stopped going to PFPT about a month ago. Is still have incontinence. Currently using about 2 PPD. Concerned about ED has well. Unable to achieve an erection. He is interested in learning more and ICI and penile prosthesis/AUS Review of Systems Constitutional: Negative for activity change and appetite change. HENT: Negative for congestion. Eyes: Negative for pain and itching. Respiratory: Negative for shortness of breath. Gastrointestinal: Negative for abdominal pain. Genitourinary: Negative for hematuria. +incontinence Neurological: Negative for facial asymmetry. Psychiatric/Behavioral: Negative for agitation and behavioral problems. Past Medical History: Past Medical History: Diagnosis Date Benign prostatic hyperplasia 2022 Diabetes (HCC) Elevated PSA 2022 GERD (gastroesophageal reflux disease) History of chronic atrial fibrillation Hyperlipidemia Hypertension Hypothyroidism Pacemaker Prostate cancer (HCC) 2022 Thrombocytopenia (HCC) Past Surgical History: Past Surgical History: Procedure Laterality Date ATRIAL CARDIAC PACEMAKER INSERTION CHOLECYSTECTOMY PACEMAKER (HISTORICAL) PROSTATE SURGERY 2023 SPINAL CORD STIMULATOR IMPLANT Allergies: Patient has no known allergies. Social History: Social History Socioeconomic History Marital status: Spouse name: Not on file Number of children: Not on file Years of education: Not on file Highest education level: Not on file Occupational History Not on file Tobacco Use Smoking status: Never Smokeless tobacco: Never Vaping Use Vaping status: Never Used Substance and Sexual Activity Alcohol use: Not Currently Comment: occ Drug use: Never Sexual activity: Yes Partners: Female Other Topics Concern Not on file Social History Narrative Not on file Social Determinants of Health Financial Resource Strain: Low Risk (06/30/2023) Overall Financial Resource Strain (CARDIA) Difficulty of Paying Living Expenses: Not hard at all Food Insecurity: No Food Insecurity (06/30/2023) Hunger Vital Sign Worried About Running Out of Food in the Last Year: Never true Ran Out of Food in the Last Year: Never true Transportation Needs: No Transportation Needs (06/30/2023) PRAPARE - Transportation Lack of Transportation (Medical): No Lack of Transportation (Non-Medical): No Physical Activity: Insufficiently Active (06/30/2023) Exercise Vital Sign Days of Exercise per Week: 5 days Minutes of Exercise per Session: 20 min Stress: No Stress Concern Present (06/30/2023) [place] [employer] Occupational [employer] - Occupational Stress Questionnaire Feeling of Stress : Not at all Social Connections: Unknown (06/30/2023) Social Connection and Isolation Panel [NHANES] Frequency of Communication with Friends and Family: More than three times a week Frequency of Social Gatherings with Friends and Family: More than three times a week Attends [facility] Services: Not on file Active Member of Clubs or Organizations: Yes Attends Club or Organization Meetings: 1 to 4 times per year Marital Status: Intimate Partner Violence: Not At Risk (06/30/2023) Humiliation, Afraid, Rape, and Kick questionnaire Fear of Current or Ex-Partner: No Emotionally Abused: No Physically Abused: No Sexually Abused: No Housing Stability: Low Risk (06/30/2023) Housing Stability Vital Sign Unable to Pay for Housing in the Last Year: No Number of Places Lived in the Last Year: 1 Unstable Housing in the Last Year: No Family History: Medications Prior to Admission medications Medication Sig Start Date End Date Taking? Authorizing Provider amitriptyline (Elavil) 100 MG tablet Take 100 mg by mouth Nightly. 03/02/23 Historical Provider, amLODIPine (Norvasc) 5 MG tablet 10/09/22 Historical Provider, atorvastatin (Lipitor) 10 MG tablet 03/09/23 Historical Provider, fluticasone (Flonase) 50 MCG/ACT nasal spray 08/03/22 Historical Provider, gabapentin (Neurontin) 600 MG tablet Take 600 mg by mouth 3 times daily. 02/19/23 Historical Provider, levothyroxine (Synthroid, Levoxyl) 50 MCG tablet 12/11/22 Historical Provider, lisinopril 40 MG tablet 03/27/23 Historical Provider, metFORMIN XR (Glucophage-XR) 500 MG 24 hr tablet Take 500 mg by mouth 2 times daily. 03/20/23 Historical Provider, omeprazole (PriLOSEC) [address] capsule 03/01/23 Historical Pro (more content not included)... Normal [facility] Free PSA [Mass/Vol]on 2023 Free PSA/Total PSA [Mass fraction] Normal [facility] Comment on above: Order Comment: Speci men Type: BLOOD SPECIMEN Ordering Facility: [facility] Address: [address] [place] [address] Result Comment: Unab le to calculate because free PSA is below assay range of 0.02 ng/mL. Total and free PSA test methodology used is the Electrochemiluminescence Immunoassay by [employer]. Total or free PSA values by differing methodologies cannot be interchanged. The below table lists the probability of finding prostate cancer upon needle biopsy, for men 50 years or older and total PSA concentrations from 4.0-10.0 ng/mL. Results should be interpreted within the broader clinical context. Free PSA(%) 50-59 years 60-69 years >69 years <11 49.2% 57.5% 64.5% 11-18 26.9% 33.9% 40.8% 19-25 18.3% 23.9% 29.7% >25 9.1% 12.2% 15.8% Performed By: #### 1 0886-0 #### [facility] CLIA [id number] [address] [place] [address] [place] Prostate specific Ag [Mass/Vol] 0.03 ng/mL Normal <2.60 [facility] Comment on above: Order Comment: Speci men Type: BLOOD SPECIMEN Ordering Facility: [facility] Address: [address] [place] [address] Result Comment: Tota l PSA test methodology used is the Electrochemiluminescence Immunoassay by [employer]. Total PSA values by differing methodologies cannot be interchanged. Performed By: #### 1 0886-0 #### [facility] CLIA [id number] [address] [place] [address] [place] PSA SerPl-mCncon 11-07-2023 Prostate specific Ag [Mass/Vol] 0.06 ng/mL Normal <2.60 [facility] Comment on above: Order Comment: Speci men Type: BLOOD SPECIMEN Ordering Facility: [facility] Address: [address] [place] [address] Result Comment: This is a new methodology for this marker. Tumor markers obtained from different assay methods cannot be used interchangeably. Expect results of this assay to run lower than the previous assay. It is recommended to re-baseline patients when changing to a new methodology. Performed By: #### 2 857-1 #### [facility] CLIA [id number] [address] [place] [address] [place] Bacteria identified Aer cx N om (Unsp spec)Ordered By: Leodan Pickett on 07-05-2023 Gram Stain Result Many Polymorphonucle ar leukocytes per low power field Abnormal [facility] Gram Stain Result Negative Abnormal [facility] Gram Stain Result Positive Abnormal [facility] Interpretation and review of laboratory results Abnormal [facility] Bacteria identified Cx Nom ( Bld)on 07-05-2023 Interpretation and review of laboratory results Normal [facility] Blood Collection Sit e: Left Forearm [facility] Blood Collection Sit e: Left Hand [facility] Basic metabolic 1998 panelon 07-05-2023 Anion gap [Moles/Vol] 9 mmol/L 3 - 13 mmol/L [facility] Calcium [Mass/Vol] 9.1 mg/dL 8.4 - 10. 4 mg/dL [facility] Chloride [Moles/Vol] 108 mmol/L High 98 - 10 7 mmol/L [facility] CO2 [Moles/Vol] 22 mmol/L 22 - 30 mmol/L [facility] Creatinine [Mass/Vol] 0.89 mg/dL 0.66 - 1.25 mg/dL [facility] GFR/1.73 sq M.predicted MDRD (S/P/Bld) [Vol rate/Area] 88.3 mL/min/{1.73_m2} - PINF [facility] Comment on above: Calculation based on the Chronic Kidney Disease Epidemiology Collaboration (CKD-EPI) equation refit without adjustment for race Glucose [Mass/Vol] 118 mg/dL High 70 - 100 mg/dL [facility] Interpretation and review of laboratory results Abnormal [facility] Potassium [Moles/Vol] 3.8 mmol/L 3.5 - 5.1 mmol/L [facility] Sodium [Moles/Vol] 139 mmol/L 135 - 145 mmol/L [facility] Urea nitrogen [Mass/Vol] 12 mg/dL 9 - 20 mg/dL [facility] CBC W Auto Differential pane l (Bld)on 07-05-2023 Basophils (Bld) [#/Vol] 0.0 10*3/uL 0.0 - 0.2 10*3/uL [facility] Basophils/100 WBC (Bld) 0.6 % 0.0 - 2.0 % [facility] Eosinophils (Bld) [#/Vol] 0.1 10*3/uL 0.0 - 0.5 10*3/uL [facility] Eosinophils/100 WBC (Bld) 2.5 % 0.0 - 6.0 % [facility] Erythrocyte distribution width (RBC) [Ratio] 14.6 % 11.5 - 15.0 % [facility] Hematocrit (Bld) [Volume fraction] 38.9 % Low 40.0 - 52.0 % [facility] Hemoglobin (Bld) [Mass/Vol] 13.0 g/dL 13.0 - 18.0 g/dL [facility] Immature granulocytes (Bld) [#/Vol] 0.0 10*3/uL NINF - 0.1 10*3/uL [facility] Immature granulocytes/100 WBC (Bld) 0.2 % 0.0 - 2.0 % [facility] Interpretation and review of laboratory results Abnormal [facility] Lymphocytes (Bld) [#/Vol] 0.8 10*3/uL Low 1.0 - 4.3 10*3/uL [facility] Lymphocytes/100 WBC (Bld) 15.8 % 15.0 - 45.0 % [facility] MCH (RBC) [Entitic mass] 29.2 pg 26.0 - 34.0 pg [facility] MCHC (RBC) [Mass/Vol] 33.4 % 30.5 - 36.0 % [facility] MCV (RBC) [Entitic vol] 87.4 fL 77.0 - 99.0 fL [facility] Monocytes (Bld) [#/Vol] 0.6 10*3/uL 0.0 - 0.9 10*3/uL [facility] Monocytes/100 WBC (Bld) 11.5 % 5.0 - 13.0 % [facility] Neutrophils (Bld) [#/Vol] 3.7 10*3/uL 1.8 - 7.5 10*3/uL [facility] Neutrophils/100 WBC (Bld) 69.4 % 38.0 - 82.0 % [facility] Nucleated RBC/100 WBC (Bld) [Ratio] 0.0 % [facility] Platelet mean volume (Bld) [Entitic vol] 10.0 fL 9.0 - 12.7 fL [facility] Platelets (Bld) [#/Vol] 272 10*3/uL 140 - 440 10*3/uL [facility] RBC (Bld) [#/Vol] 4.45 10*6/uL 4.40 - 5.90 10*6/uL [facility] WBC (Bld) [#/Vol] 5.3 10*3/uL 3.6 - 10.7 10*3/uL [facility] Laboratory - Microbiology an d Antimicrobial susceptibilityon 07-05-2023 Bacteria identified Cx Nom (Bld) No growth at 5 days [facility] Laboratory - Microbiology an d Antimicrobial susceptibilityOrdered By: Leodan Pickett on 07-05-2023 Bacteria identified Aer cx Nom (Unsp spec) Few Klebsiella pneumoniae Abnormal [facility] Basic metabolic 1998 panelon 07-04-2023 Anion gap [Moles/Vol] 10 mmol/L 3 - 13 mmol/L [facility] Calcium [Mass/Vol] 8.6 mg/dL 8.4 - 10. 4 mg/dL [facility] Chloride [Moles/Vol] 105 mmol/L 98 - 10 7 mmol/L [facility] CO2 [Moles/Vol] 21 mmol/L Low 22 - 30 mmol/L [facility] Creatinine [Mass/Vol] 0.84 mg/dL 0.66 - 1.25 mg/dL [facility] GFR/1.73 sq M.predicted MDRD (S/P/Bld) [Vol rate/Area] 89.8 mL/min/{1.73_m2} - PINF [facility] Comment on above: Calculation based on the Chronic Kidney Disease Epidemiology Collaboration (CKD-EPI) equation refit without adjustment for race Glucose [Mass/Vol] 100 mg/dL 70 - 100 mg/dL [facility] Interpretation and review of laboratory results Abnormal [facility] Potassium [Moles/Vol] 3.3 mmol/L Low 3.5 - 5.1 mmol/L [facility] Sodium [Moles/Vol] 135 mmol/L 135 - 145 mmol/L [facility] Urea nitrogen [Mass/Vol] 10 mg/dL 9 - 20 mg/dL [facility] CBC W Auto Differential pane l (Bld)on 07-04-2023 Basophils (Bld) [#/Vol] 0.0 10*3/uL 0.0 - 0.2 10*3/uL [facility] Basophils/100 WBC (Bld) 0.6 % 0.0 - 2.0 % [facility] Eosinophils (Bld) [#/Vol] 0.1 10*3/uL 0.0 - 0.5 10*3/uL [facility] Eosinophils/100 WBC (Bld) 2.9 % 0.0 - 6.0 % [facility] Erythrocyte distribution width (RBC) [Ratio] 14.7 % 11.5 - 15.0 % [facility] Hematocrit (Bld) [Volume fraction] 38.3 % Low 40.0 - 52.0 % [facility] Hemoglobin (Bld) [Mass/Vol] 12.6 g/dL Low 13.0 - 18.0 g/dL [facility] Immature granulocytes (Bld) [#/Vol] 0.0 10*3/uL NINF - 0.1 10*3/uL [facility] Immature granulocytes/100 WBC (Bld) 0.2 % 0.0 - 2.0 % [facility] Interpretation and review of laboratory results Abnormal [facility] Lymphocytes (Bld) [#/Vol] 1.0 10*3/uL 1.0 - 4.3 10*3/uL [facility] Lymphocytes/100 WBC (Bld) 19.6 % 15.0 - 45.0 % [facility] MCH (RBC) [Entitic mass] 29.2 pg 26.0 - 34.0 pg [facility] MCHC (RBC) [Mass/Vol] 32.9 % 30.5 - 36.0 % [facility] MCV (RBC) [Entitic vol] 88.7 fL 77.0 - 99.0 fL [facility] Monocytes (Bld) [#/Vol] 0.6 10*3/uL 0.0 - 0.9 10*3/uL [facility] Monocytes/100 WBC (Bld) 11.9 % 5.0 - 13.0 % [facility] Neutrophils (Bld) [#/Vol] 3.2 10*3/uL 1.8 - 7.5 10*3/uL [facility] Neutrophils/100 WBC (Bld) 64.8 % 38.0 - 82.0 % [facility] Nucleated RBC/100 WBC (Bld) [Ratio] 0.0 % [facility] Platelet mean volume (Bld) [Entitic vol] 10.2 fL 9.0 - 12.7 fL [facility] Platelets (Bld) [#/Vol] 239 10*3/uL 140 - 440 10*3/uL [facility] RBC (Bld) [#/Vol] 4.32 10*6/uL Low 4.40 - 5.90 10*6/uL [facility] WBC (Bld) [#/Vol] 4.9 10*3/uL 3.6 - 10.7 10*3/uL [facility] CT Pelvis W contrast Char 1. Interval decrease in the size of the right pelvic fluid collection containing an indwelling pigtail catheter. A minimal amount of fluid surrounds this catheter. 2. Unchanged hypodense collection in the left hemipelvis. 3. Additional chronic findings as above. CRITICAL TEST RESULT COMMUNICATION: The findings were discussed with Dr. Cameron on 07/04/2023 at 2:13 PM via telephone. Report Dictated on Electronically Signed By: Eladio Nova MD Electronically Signed Date/Time: 07/04/2023 2:23 PM EDT [facility] Patient Name: CADE ISLAS : 1945 Exam Date/Time: 07/04/2023 13:20 Procedure: CT PELVIS W IV CONTRAST Ordering Provider: ARCE ERIK Reason For Exam: evaluate drain EXAMINATION: CT of the pelvis with intravenous contrast. EXAM DATE & TIME: 07/04/2023 1:20 PM EDT INDICATION: evaluate drain ADDITIONAL INFORMATION: 78-year-old male with indwelling pelvic drain presents for follow-up COMPARISON: CT guided abscess drain placement dated 07/02/[address] abdomen pelvis dated 04/26/2023 LIMITATIONS: None TECHNIQUE: Thin isotropic axial images were obtained from above the iliac crests down through the proximal femurs during dynamic infusion of 75 mL of intravenous Isovue 370. Images were reformatted in coronal and sagittal projections using the raw CT data and were interpreted in conjunction with the axial images to render the findings listed below. Before infusion of intravenous contrast, radiology personnel investigated the possibility of an allergic history and any history of reaction to iodinated contrast material. Dose reduction was employed with automated exposure control. FINDINGS: Pelvic vasculature: Atherosclerotic vascular calcifications are seen in the distal aorta and its proximal major branches. No critical stenosis or aneurysm. Bowel: No evidence of bowel obstruction in the imaged portions. There is scattered colonic diverticulosis. The appendix is unremarkable in appearance. Peritoneum: Interval decrease in the size of the right pelvic fluid collection containing an indwelling pigtail catheter. Hypodense collection in the left hemipelvis measures approximately 5.3 x 3.4 cm on series 3, image 48. No free air in the imaged portion. Lymph nodes: No emerging adenopathy. Osseous structures: No acute fracture or traumatic dislocation. No aggressive osseous lesions. Spinal stimulator electronic device is noted in the left supragluteal soft tissues. Other findings: None. [facility] Eladio Nova MD - 07/04/2023 Patient Name: CADE ISLAS : 1945 Exam Date/Time: 07/04/2023 13:20 Procedure: CT PELVIS W IV CONTRAST Ordering Provider: ARCE ERIK Reason For Exam: evaluate drain EXAMINATION: CT of the pelvis with intravenous contrast. EXAM DATE & TIME: 07/04/2023 1:20 PM EDT INDICATION: evaluate drain ADDITIONAL INFORMATION: 78-year-old male with indwelling pelvic drain presents for follow-up COMPARISON: CT guided abscess drain placement dated 07/02/[address] abdomen pelvis dated 04/26/2023 LIMITATIONS: None TECHNIQUE: Thin isotropic axial images were obtained from above the iliac crests down through the proximal femurs during dynamic infusion of 75 mL of intravenous Isovue 370. Images were reformatted in coronal and sagittal projections using the raw CT data and were interpreted in conjunction with the axial images to render the findings listed below. Before infusion of intravenous contrast, radiology personnel investigated the possibility of an allergic history and any history of reaction to iodinated contrast material. Dose reduction was employed with automated exposure control. FINDINGS: Pelvic vasculature: Atherosclerotic vascular calcifications are seen in the distal aorta and its proximal major branches. No critical stenosis or aneurysm. Bowel: No evidence of bowel obstruction in the imaged portions. There is scattered colonic diverticulosis. The appendix is unremarkable in appearance. Peritoneum: Interval decrease in the size of the right pelvic fluid collection containing an indwelling pigtail catheter. Hypodense collection in the left hemipelvis measures approximately 5.3 x 3.4 cm on series 3, image 48. No free air in the imaged portion. Lymph nodes: No emerging adenopathy. Osseous structures: No acute fracture or traumatic dislocation. No aggressive osseous lesions. Spinal stimulator electronic device is noted in the left supragluteal soft tissues. Other findings: None. IMPRESSION: 1. Interval decrease in the size of the right pelvic fluid collection containing an indwelling pigtail catheter. A minimal amount of fluid surrounds this catheter. 2. Unchanged hypodense collection in the left hemipelvis. 3. Additional chronic findings as above. CRITICAL TEST RESULT COMMUNICATION: The findings were discussed with Dr. Cameron on 07/04/2023 at 2:13 PM via telephone. Report Dictated on Electronically Signed By: Eladio Nova MD Electronically Signed Date/Time: 07/04/2023 2:23 PM EDT [facility] Radiology Study observation (narrative) [facility] Pelvis W contrast IVOrder ed By: Eladio Nova on 07-04-2023 [facility] Work Phone: Laboratory - Chemistry and C hemistry - challengeon 07-04-2023 Magnesium [Mass/Vol] 2.3 mg/dL 1.6 - 2 .3 mg/dL [facility] Magnesium [Mass/Vol]on 07-03 Interpretation and review of laboratory results Normal [facility] Basic metabolic 1998 panelon 07-03-2023 Anion gap [Moles/Vol] 9 mmol/L 3 - 13 mmol/L [facility] Calcium [Mass/Vol] 9.2 mg/dL 8.4 - 10. 4 mg/dL [facility] Chloride [Moles/Vol] 104 mmol/L 98 - 10 7 mmol/L [facility] CO2 [Moles/Vol] 25 mmol/L 22 - 30 mmol/L [facility] Creatinine [Mass/Vol] 0.92 mg/dL 0.66 - 1.25 mg/dL [facility] GFR/1.73 sq M.predicted MDRD (S/P/Bld) [Vol rate/Area] 85.7 mL/min/{1.73_m2} - PINF [facility] Comment on above: Calculation based on the Chronic Kidney Disease Epidemiology Collaboration (CKD-EPI) equation refit without adjustment for race Glucose [Mass/Vol] 108 mg/dL High 70 - 100 mg/dL [facility] Interpretation and review of laboratory results Abnormal [facility] Potassium [Moles/Vol] 3.8 mmol/L 3.5 - 5.1 mmol/L [facility] Sodium [Moles/Vol] 138 mmol/L 135 - 145 mmol/L [facility] Urea nitrogen [Mass/Vol] 10 mg/dL 9 - 20 mg/dL [facility] CBC W Auto Differential pane l (Bld)on 07-03-2023 Basophils (Bld) [#/Vol] 0.0 10*3/uL 0.0 - 0.2 10*3/uL [facility] Basophils/100 WBC (Bld) 0.4 % 0.0 - 2.0 % [facility] Eosinophils (Bld) [#/Vol] 0.2 10*3/uL 0.0 - 0.5 10*3/uL [facility] Eosinophils/100 WBC (Bld) 3.0 % 0.0 - 6.0 % [facility] Erythrocyte distribution width (RBC) [Ratio] 15.2 % High 11.5 - 15.0 % [facility] Hematocrit (Bld) [Volume fraction] 39.3 % Low 40.0 - 52.0 % [facility] Hemoglobin (Bld) [Mass/Vol] 12.7 g/dL Low 13.0 - 18.0 g/dL [facility] Immature granulocytes (Bld) [#/Vol] 0.0 10*3/uL NINF - 0.1 10*3/uL [facility] Immature granulocytes/100 WBC (Bld) 0.4 % 0.0 - 2.0 % [facility] Interpretation and review of laboratory results Abnormal [facility] Lymphocytes (Bld) [#/Vol] 0.9 10*3/uL Low 1.0 - 4.3 10*3/uL [facility] Lymphocytes/100 WBC (Bld) 17.5 % 15.0 - 45.0 % [facility] MCH (RBC) [Entitic mass] 28.1 pg 26.0 - 34.0 pg [facility] MCHC (RBC) [Mass/Vol] 32.3 % 30.5 - 36.0 % [facility] MCV (RBC) [Entitic vol] 86.9 fL 77.0 - 99.0 fL [facility] Monocytes (Bld) [#/Vol] 0.6 10*3/uL 0.0 - 0.9 10*3/uL [facility] Monocytes/100 WBC (Bld) 12.1 % 5.0 - 13.0 % [facility] Neutrophils (Bld) [#/Vol] 3.5 10*3/uL 1.8 - 7.5 10*3/uL [facility] Neutrophils/100 WBC (Bld) 66.6 % 38.0 - 82.0 % [facility] Nucleated RBC/100 WBC (Bld) [Ratio] 0.0 % [facility] Platelet mean volume (Bld) [Entitic vol] 10.1 fL 9.0 - 12.7 fL [facility] Platelets (Bld) [#/Vol] 283 10*3/uL 140 - 440 10*3/uL [facility] RBC (Bld) [#/Vol] 4.52 10*6/uL 4.40 - 5.90 10*6/uL [facility] WBC (Bld) [#/Vol] 5.3 10*3/uL 3.6 - 10.7 10*3/uL [facility] Laboratoryon 07-03-2023 Fluid Nom (Body fld) Peritoneal Fluid [facility] Fluid Nom (Body fld) Peritoneal Fluid [facility] Laboratory - Chemistry and C hemistry - challengeon 07-03-2023 Triglyceride (Body fld) [Mass/Vol] 52 mg/dL No Range [facility] Glucose [Mass/Vol] 98 mg/dL 70 - 100 mg/dL [facility] Creatinine (Body fld) [Mass/Vol] 0.92 mg/dL No Range [facility] No Panel Informationon 07-02 This test was develo ped and its performance characteristics determined by [facility]. It has not been cleared or approved by the [place] Food and Drug Administration. This test was performed in a CLIA certified laboratory and is intended for clinical purposes. [facility] Interpretation and review of laboratory results Normal [facility] Performed by: [facility], [address] [place] [address], [place] [address] CLIA ID: [id number] [facility] This test was develo ped and its performance characteristics determined by [employer]. It has not been cleared or approved by the [place] Food and Drug Administration. This test was performed in a CLIA certified laboratory and is intended for clinical purposes. [facility] Radiology Study observation (narrative) [facility] Basic metabolic 1998 panelon 07-02-2023 Anion gap [Moles/Vol] 8 mmol/L 3 - 13 mmol/L [facility] Calcium [Mass/Vol] 8.9 mg/dL 8.4 - 10. 4 mg/dL [facility] Chloride [Moles/Vol] 107 mmol/L 98 - 10 7 mmol/L [facility] CO2 [Moles/Vol] 22 mmol/L 22 - 30 mmol/L [facility] Creatinine [Mass/Vol] 0.80 mg/dL 0.66 - 1.25 mg/dL [facility] GFR/1.73 sq M.predicted MDRD (S/P/Bld) [Vol rate/Area] - PINF [facility] Comment on above: Calculation based on the Chronic Kidney Disease Epidemiology Collaboration (CKD-EPI) equation refit without adjustment for race Glucose [Mass/Vol] 102 mg/dL High 70 - 100 mg/dL [facility] Interpretation and review of laboratory results Abnormal [facility] Potassium [Moles/Vol] 3.7 mmol/L 3.5 - 5.1 mmol/L [facility] Sodium [Moles/Vol] 137 mmol/L 135 - 145 mmol/L [facility] Urea nitrogen [Mass/Vol] 10 mg/dL 9 - 20 mg/dL [facility] CBC W Auto Differential pane l (Bld)on 07-02-2023 Basophils (Bld) [#/Vol] 0.0 10*3/uL 0.0 - 0.2 10*3/uL [facility] Basophils/100 WBC (Bld) 0.1 % 0.0 - 2.0 % [facility] Eosinophils (Bld) [#/Vol] 0.1 10*3/uL 0.0 - 0.5 10*3/uL [facility] Eosinophils/100 WBC (Bld) 1.7 % 0.0 - 6.0 % [facility] Erythrocyte distribution width (RBC) [Ratio] 15.4 % High 11.5 - 15.0 % [facility] Hematocrit (Bld) [Volume fraction] 38.9 % Low 40.0 - 52.0 % [facility] Hemoglobin (Bld) [Mass/Vol] 12.3 g/dL Low 13.0 - 18.0 g/dL [facility] Immature granulocytes (Bld) [#/Vol] 0.0 10*3/uL NINF - 0.1 10*3/uL [facility] Immature granulocytes/100 WBC (Bld) 0.4 % 0.0 - 2.0 % [facility] Interpretation and review of laboratory results Abnormal [facility] Lymphocytes (Bld) [#/Vol] 0.8 10*3/uL Low 1.0 - 4.3 10*3/uL [facility] Lymphocytes/100 WBC (Bld) 10.2 % Low 15.0 - 45.0 % [facility] MCH (RBC) [Entitic mass] 28.3 pg 26.0 - 34.0 pg [facility] MCHC (RBC) [Mass/Vol] 31.6 % 30.5 - 36.0 % [facility] MCV (RBC) [Entitic vol] 89.6 fL 77.0 - 99.0 fL [facility] Monocytes (Bld) [#/Vol] 0.9 10*3/uL 0.0 - 0.9 10*3/uL [facility] Monocytes/100 WBC (Bld) 11.5 % 5.0 - 13.0 % [facility] Neutrophils (Bld) [#/Vol] 6.0 10*3/uL 1.8 - 7.5 10*3/uL [facility] Neutrophils/100 WBC (Bld) 76.1 % 38.0 - 82.0 % [facility] Nucleated RBC/100 WBC (Bld) [Ratio] 0.0 % [facility] Platelet mean volume (Bld) [Entitic vol] 9.8 fL 9.0 - 12.7 fL [facility] Platelets (Bld) [#/Vol] 250 10*3/uL 140 - 440 10*3/uL [facility] RBC (Bld) [#/Vol] 4.34 10*6/uL Low 4.40 - 5.90 10*6/uL [facility] WBC (Bld) [#/Vol] 7.8 10*3/uL 3.6 - 10.7 10*3/uL [facility] Laboratory - Chemistry and C hemistry - challengeon 07-02-2023 Glucose [Mass/Vol] 103 mg/dL High 70 - 100 mg/dL [facility] Glucose [Mass/Vol] 104 mg/dL High 70 - 100 mg/dL [facility] Glucose [Mass/Vol] 117 mg/dL High 70 - 100 mg/dL [facility] Glucose [Mass/Vol] 84 mg/dL 70 - 100 mg/dL [facility] No Panel Informationon 07-01 Interpretation and review of laboratory results Abnormal [facility] Performed by: [facility], [address] [place] [address] CLIA ID: [id number] [facility] Interpretation and review of laboratory results Abnormal [facility] Performed by: [facility], [address] [place] [id number] CLIA ID: [id number] [facility] Interpretation and review of laboratory results Abnormal [facility] Performed by: [facility], [address] [place] [address] CLIA ID: [id number] [facility] 1. Successful Percutaneous placement of a 8 Micronesian drainage catheter into right pelvic fluid collection, yielding 20 mL of white fluid. 2. Drainage catheter was not placed into 5 x 3 cm left pelvic sidewall fluid collection due to lack of safe access window. Short interval follow-up recommended for reevaluation. PROCEDURE SUMMARY: - Right pelvic drainage catheter placement under CT and ultrasound guidance - Additional procedure(s): None PROCEDURE DETAILS: Pre-procedure Consent: Informed consent for the procedure including risks, benefits and alternatives was obtained and time-out was performed prior to the procedure. Preparation: The site was prepared and draped using maximal sterile barrier technique including cutaneous antisepsis. Anesthesia/sedation Moderate sedation was provided under my supervision with patient monitored by a trained radiology nurse. Total sedation time of 25 minutes. Drainage catheter placement The patient was positioned supine. Initial imaging was performed. Local anesthesia was administered. The fluid collection was accessed using trocar technique and a drainage catheter was placed. Position of the drainage catheter within the fluid collection was confirmed. - Initial imaging findings: Right greater than left pelvic fluid collections - Drainage catheter placed: 8 Micronesian APD - External catheter securement: Non-absorbable suture and adhesive anchoring device - Post-drainage imaging findings: Right pelvic fluid collection drainage catheter in adequate position Contrast Contrast agent: None Contrast volume (mL): [address] dose length product (mGy-cm): 589.7 Dose reduction was employed with automated exposure control. Additional Details Additional description of procedure: None Equipment details: None Specimens removed: Aspirated fluid was sent for analysis. Estimated blood loss (mL): Less than 10 Report Dictated on Electronically Signed By: Raghavendra Albright DR Electronically Signed Date/Time: 07/02/2023 9:48 AM EDT [employer] Patient Name: CADE ISLAS : 1945 Exam Date/Time: 07/02/2023 09:27 Procedure: CT GUIDED ABSCESS FLUID COLLECTION DRAINAGE Ordering Provider: ACOSTA KINSEY Reason For Exam: pelvic wall fluid collection (imaging OSH) PROCEDURE: Drainage catheter placement Procedural Personnel Attending physician(s): Raghavendra Albright DR Indication: Pelvic wall fluid collections Additional clinical history: None Complications: No immediate complications. [facility] Raghavendra Albright MD - 07/02/2023 Patient Name: CADE ISLAS : 1945 Exam Date/Time: 07/02/2023 09:27 Procedure: CT GUIDED ABSCESS FLUID COLLECTION DRAINAGE Ordering Provider: ACOSTA KINSEY Reason For Exam: pelvic wall fluid collection (imaging OSH) PROCEDURE: Drainage catheter placement Procedural Personnel Attending physician(s): Raghavendra Albright DR Indication: Pelvic wall fluid collections Additional clinical history: None Complications: No immediate complications. IMPRESSION: 1. Successful Percutaneous placement of a 8 Micronesian drainage catheter into right pelvic fluid collection, yielding 20 mL of white fluid. 2. Drainage catheter was not placed into 5 x 3 cm left pelvic sidewall fluid collection due to lack of safe access window. Short interval follow-up recommended for reevaluation. PROCEDURE SUMMARY: - Right pelvic drainage catheter placement under CT and ultrasound guidance - Additional procedure(s): None PROCEDURE DETAILS: Pre-procedure Consent: Informed consent for the procedure including risks, benefits and alternatives was obtained and time-out was performed prior to the procedure. Preparation: The site was prepared and draped using maximal sterile barrier technique including cutaneous antisepsis. Anesthesia/sedation Moderate sedation was provided under my supervision with patient monitored by a trained radiology nurse. Total sedation time of 25 minutes. Drainage catheter placement The patient was positioned supine. Initial imaging was performed. Local anesthesia was administered. The fluid collection was accessed using trocar technique and a drainage catheter was placed. Position of the drainage catheter within the fluid collection was confirmed. - Initial imaging findings: Right greater than left pelvic fluid collections - Drainage catheter placed: 8 [place] APD - External catheter securement: Non-absorbable suture and adhesive anchoring device - Post-drainage imaging findings: Right pelvic fluid collection drainage catheter in adequate position Contrast Contrast agent: None Contrast volume (mL): [address] dose length product (mGy-cm): 589.7 Dose reduction was employed with automated exposure control. Additional Details Additional description of procedure: None Equipment details: None Specimens removed: Aspirated fluid was sent for analysis. Estimated blood loss (mL): Less than 10 Report Dictated on Electronically Signed By: Raghavendra Albright DR Electronically Signed Date/Time: 07/02/2023 9:48 AM EDT [facility] Radiology Study observation (narrative) [facility] Interpretation and review of laboratory results Normal [facility] Performed by: [facility], [address] [place] [address] CLIA ID: [id number] [facility] Radiology Study observation (narrative) [facility] Radiology Study observation (narrative) [facility] Radiology Study observation (narrative) [facility] Radiology Study observation (narrative) [facility] No Panel InformationOrdered By: Raghavendra Albright on 07-02-2023 [facility] Work Phone: Basic metabolic 1998 panelon 07-01-2023 Anion gap [Moles/Vol] 7 mmol/L 3 - 13 mmol/L [facility] Calcium [Mass/Vol] 8.9 mg/dL 8.4 - 10. 4 mg/dL [facility] Chloride [Moles/Vol] 104 mmol/L 98 - 10 7 mmol/L [facility] CO2 [Moles/Vol] 23 mmol/L 22 - 30 mmol/L [facility] Creatinine [Mass/Vol] 0.65 mg/dL Low 0.66 - 1.25 mg/dL [facility] GFR/1.73 sq M.predicted MDRD (S/P/Bld) [Vol rate/Area] - PINF [facility] Comment on above: Calculation based on the Chronic Kidney Disease Epidemiology Collaboration (CKD-EPI) equation refit without adjustment for race Glucose [Mass/Vol] 100 mg/dL 70 - 100 mg/dL [facility] Interpretation and review of laboratory results Abnormal [facility] Potassium [Moles/Vol] 3.6 mmol/L 3.5 - 5.1 mmol/L [facility] Sodium [Moles/Vol] 135 mmol/L 135 - 145 mmol/L [facility] Urea nitrogen [Mass/Vol] 11 mg/dL 9 - 20 mg/dL [facility] CBC W Auto Differential pane l (Bld)on 07-01-2023 Basophils (Bld) [#/Vol] 0.0 10*3/uL 0.0 - 0.2 10*3/uL [facility] Basophils/100 WBC (Bld) 0.2 % 0.0 - 2.0 % [facility] Eosinophils (Bld) [#/Vol] 0.1 10*3/uL 0.0 - 0.5 10*3/uL [facility] Eosinophils/100 WBC (Bld) 0.8 % 0.0 - 6.0 % [facility] Erythrocyte distribution width (RBC) [Ratio] 15.6 % High 11.5 - 15.0 % [facility] Hematocrit (Bld) [Volume fraction] 35.9 % Low 40.0 - 52.0 % [facility] Hemoglobin (Bld) [Mass/Vol] 11.7 g/dL Low 13.0 - 18.0 g/dL [facility] Immature granulocytes (Bld) [#/Vol] 0.1 10*3/uL High NINF - 0.1 10*3/uL [facility] Immature granulocytes/100 WBC (Bld) 0.6 % 0.0 - 2.0 % [facility] Interpretation and review of laboratory results Abnormal [facility] Lymphocytes (Bld) [#/Vol] 0.7 10*3/uL Low 1.0 - 4.3 10*3/uL [facility] Lymphocytes/100 WBC (Bld) 7.5 % Low 15.0 - 45.0 % [facility] MCH (RBC) [Entitic mass] 29.0 pg 26.0 - 34.0 pg [facility] MCHC (RBC) [Mass/Vol] 32.6 % 30.5 - 36.0 % [facility] MCV (RBC) [Entitic vol] 88.9 fL 77.0 - 99.0 fL [facility] Monocytes (Bld) [#/Vol] 0.9 10*3/uL 0.0 - 0.9 10*3/uL [facility] Monocytes/100 WBC (Bld) 10.4 % 5.0 - 13.0 % [facility] Neutrophils (Bld) [#/Vol] 7.1 10*3/uL 1.8 - 7.5 10*3/uL [facility] Neutrophils/100 WBC (Bld) 80.5 % 38.0 - 82.0 % [facility] Nucleated RBC/100 WBC (Bld) [Ratio] 0.0 % [facility] Platelet mean volume (Bld) [Entitic vol] 10.3 fL 9.0 - 12.7 fL [facility] Platelets (Bld) [#/Vol] 217 10*3/uL 140 - 440 10*3/uL [facility] RBC (Bld) [#/Vol] 4.04 10*6/uL Low 4.40 - 5.90 10*6/uL [facility] WBC (Bld) [#/Vol] 8.8 10*3/uL 3.6 - 10.7 10*3/uL [facility] Laboratory - Chemistry and C hemistry - challengeon 07-01-2023 Glucose [Mass/Vol] 105 mg/dL High 70 - 100 mg/dL [facility] Glucose [Mass/Vol] 83 mg/dL 70 - 100 mg/dL [facility] Glucose [Mass/Vol] 98 mg/dL 70 - 100 mg/dL [facility] Glucose [Mass/Vol] 102 mg/dL High 70 - 100 mg/dL [facility] Laboratory - Drug toxicology on 07-01-2023 Vancomycin trough [Mass/Vol] 11.3 ug/mL Low 15.0 - 20.0 ug/mL [facility] No Panel Informationon 06-30 Interpretation and review of laboratory results Abnormal [facility] Performed by: [facility], [address] [place] [id number] CLIA ID: [id number] [facility] Interpretation and review of laboratory results Normal [facility] Performed by: [facility], [address] [place] [address] CLIA ID: [id number] [facility] Atrial-ventricular dual-paced rhythm Electronically Signed On 07-01-2023 13:32:48 EDT by Tc Olvera CV Tc Murphy MD - 07/01/2023 IMPRESSION: Atrial-ventricular dual-paced rhythm Electronically Signed On 07-01-2023 13:32:48 EDT by Tc Olvera [facility] Interpretation and review of laboratory results Normal [facility] Performed by: [facility], [address] [place] [address] CLIA ID: [id number] [facility] Interpretation and review of laboratory results Abnormal [facility] Performed by: [facility], [address] [place] [address] CLIA ID: [id number] [facility] Radiology Study observation (narrative) [facility] Radiology Study observation (narrative) [facility] Radiology Study observation (narrative) [facility] Radiology Study observation (narrative) [facility] No Panel InformationOrdered By: Tc Olvera on 07-01-2023 P [place] 0 degrees [facility] Work Phone: NC Interval 143 ms [employer] Work Phone: QRS [place] -39 degrees [employer] Work Phone: QRSD Interval 79 ms [employer] Work Phone: QT Interval 376 ms [employer] Work Phone: QTC Interval 438 ms [employer] Work Phone: T Wave [place] -10 degrees [employer] Work Phone: [employer] Work Phone: Vancomycin trough [Mass/Vol] on 07-01-2023 Interpretation and review of laboratory results Abnormal [facility] [employer] Vital signsOrdered By: Bandar Olvera on 07-01-2023 Heart rate 81 /min bpm [employer] Work Phone: Basic metabolic 1998 panelon 06-30-2023 Anion gap [Moles/Vol] 13 mmol/L 3 - 13 mmol/L [employer] [facility] [employer] Calcium [Mass/Vol] 9.3 mg/dL 8.4 - 10. 4 mg/dL [employer] [facility] [employer] Chloride [Moles/Vol] 103 mmol/L 98 - 10 7 mmol/L [employer] [facility] [employer] CO2 [Moles/Vol] 17 mmol/L Low 22 - 30 mmol/L [employer] [facility] Creatinine [Mass/Vol] 0.79 mg/dL 0.66 - 1.25 mg/dL [employer] GFR/1.73 sq M.predicted MDRD (S/P/Bld) [Vol rate/Area] - PINF [employer] [facility] Comment on above: Calculation based on the Chronic Kidney Disease Epidemiology Collaboration (CKD-EPI) equation refit without adjustment for race Glucose [Mass/Vol] 132 mg/dL High 70 - 100 mg/dL [employer] [facility] Interpretation and review of laboratory results Abnormal [employer] Potassium [Moles/Vol] 4.0 mmol/L 3.5 - 5.1 mmol/L [employer] [facility] Sodium [Moles/Vol] 133 mmol/L Low 135 - 145 mmol/L [employer] [facility] Urea nitrogen [Mass/Vol] 14 mg/dL 9 - 20 mg/dL [facility] [employer] CBC W Auto Differential pane l (Bld)Ordered By: Javon Galvez on 04-06-2024 Erythrocyte distribution width (RBC) [Ratio] 15.8 % High 11.5 - 15.0 % [facility] Hematocrit (Bld) [Volume fraction] 41.8 % 40.0 - 52.0 % [facility] Hemoglobin (Bld) [Mass/Vol] 13.7 g/dL 13.0 - 18.0 g/dL [facility] Interpretation and review of laboratory results Abnormal [facility] MCH (RBC) [Entitic mass] 29.1 pg 26.0 - 34.0 pg [facility] MCHC (RBC) [Mass/Vol] 32.8 % 30.5 - 36.0 % [facility] MCV (RBC) [Entitic vol] 88.9 fL 77.0 - 99.0 fL [facility] Platelet mean volume (Bld) [Entitic vol] 10.0 fL 9.0 - 12.7 fL [facility] Platelets (Bld) [#/Vol] 233 10*3/uL 140 - 440 10*3/uL [facility] RBC (Bld) [#/Vol] 4.70 10*6/uL 4.40 - 5.90 10*6/uL [facility] WBC (Bld) [#/Vol] 11.8 10*3/uL High 3.6 - 10.7 10*3/uL [facility] Hepatic function 2000 panelo n 06-30-2023 Albumin [Mass/Vol] 3.8 g/dL 3.5 - 5.0 g/dL [facility] ALP [Catalytic activity/Vol] 441 U/L High 38 - 126 U/L [facility] ALT [Catalytic activity/Vol] 83 U/L High 0 - 49 U/L [facility] AST [Catalytic activity/Vol] 82 U/L High 15 - 46 U/L [facility] Bilirubin [Mass/Vol] 0.9 mg/dL 0.2 - 1 .3 mg/dL [facility] Bilirubin.conjugated [Mass/Vol] 0.0 mg/dL 0.0 - 0.3 mg/dL [facility] Interpretation and review of laboratory results Abnormal [facility] Protein [Mass/Vol] 8.2 g/dL 6.3 - 8.2 g/dL [facility] Laboratory - Chemistry and C hemistry - challengeon 06-30-2023 Procalcitonin [Mass/Vol] 0.14 ng/mL High 0.00 - 0.09 ng/mL [facility] Laboratory - Coagulationon 0 06-30-2023 aPTT Coag (PPP) [Time] 33.7 s High 20.0 - 30.5 s [facility] INR Coag (PPP) [Relative time] 1.2 {INR} High 0.9 - 1.1 [facility] Comment on above: Recommended Anticoag ulant Therapy: SEE BELOW ----- INR of 2.0 - 3.0 : - Prophylaxis of Venous Thrombosis (high-risk surgery) - Treatment of Venous Thrombosis - Treatment of Pulmonary Embolism (Includes tissue heart valves, Acute Myocardial Infarction to prevent systemic embolism, Valvular Heart Disease, and Atrial Fibrillation) ----- INR of 2.5 - 3.5 : - Mechanical Prosthetic Valves (high risk) - If oral anticoagulant therapy is used to prevent Myocardial Infarction PT Coag (Bld) [Time] 12.8 s High 9.0 - 1 2.0 s [facility] Laboratory - Hematology and Cell countson 06-30-2023 Anisocytosis Ql (Bld) Slight Abnormal (none) [facility] Band form neutrophils (Bld) [#/Vol] 0.1 10*3/uL High NINF - 0.0 10*3/uL [facility] Band form neutrophils/100 WBC (Bld) 1 % High NINF - 0 % [facility] [place] cells LM Ql (Bld) Rare Abnormal (none) [facility] Dacrocytes LM Ql (Bld) Rare Abnormal (none) [facility] Eosinophils (Bld) [#/Vol] 0.1 10*3/uL 0.0 - 0.5 10*3/uL [facility] Eosinophils/100 WBC (Bld) 1 % 0 - 6 % [facility] Lymphocytes (Bld) [#/Vol] 0.8 10*3/uL Low 1.0 - 4.3 10*3/uL [facility] Lymphocytes/100 WBC (Bld) 7 % Low 15 - 45 % [facility] Macrocytes Ql (Bld) Slight Abnormal (none) [facility] Monocytes (Bld) [#/Vol] 0.8 10*3/uL 0.0 - 0.9 10*3/uL [facility] Monocytes/100 WBC (Bld) 7 % 5 - 13 % [facility] Neutrophils (Bld) [#/Vol] 10.1 10*3/uL High 1.8 - 7.5 10*3/uL [facility] Neutrophils.vacuolated LM Ql (Bld) Present Abnormal (none) [facility] Ovalocytes LM Ql (Bld) Slight Abnormal (none) [facility] Poikilocytosis LM Ql (Bld) Slight Abnormal (none) [facility] RBC morphology finding Nom (Bld) abnormal [facility] Segmented neutrophils/100 WBC (Bld) 85 % High 38 - 82 % [facility] Target cells LM Ql (Bld) Slight Abnormal (none) [facility] Toxic granules LM Ql (Bld) Present Abnormal (none) [facility] Variant lymphocytes (Bld) [#/Vol] 0.1 10*3/uL High NINF - 0.0 10*3/uL [facility] Variant lymphocytes/100 WBC (Bld) 1 % High NINF - 0 % [facility] No Panel Informationon 06-29 Atypical Lymphocytes Manual 1 [facility] Bands Manual 1 [facility] Basophils Manual [facility] Blasts Manual [facility] Eosinophils Manual 1 0 - 1 [facility] Interpretation and review of laboratory results Abnormal [facility] Lymphocytes Manual 14 [facility] Metamyelocytes Manual [facility] Monocytes Manual 13 [facility] Myelocytes Manual [facility] Neutrophils Manual 169 [facility] Promyelocytes Manual [facility] Unclassified Cells, Manual [facility] Interpretation and review of laboratory results Abnormal [facility] Procalcitonin [Mass/Vol]on 0 06-30-2023 Interpretation and review of laboratory results Abnormal [facility] PCT <0.50 = Low risk of severe sepsis and/or septic shock. PCT >2.00 = High risk of severe sepsis and/or septic shock. [facility] CT Abdomen and Pelvis W cont rast Char 06-29-2023 [facility] CNPDebi 06-04-2023 CNPN Telephone ([facility]) CADE ISLAS ([id number]) 1945 M Date Time Provider Department 06/04/23 CHAD DAVIS PULMELENO During your visit today, we recorded the following information about you: Chad Davis APRN.CNP 06/04/2023 3:49 PM Signed Phone call to patient to discuss results of 3-[address] Chest for lung nodules. The nodules were stable and recommend follow up in 6-12 mos. Patient prefers to follow up with PCP now for lung nodules. Message sent to Dr. Le. Chad Davis APRN.CHELI Allergies As of Date: 06/04/2023 (No Known Allergies) Date Reviewed: 05/14/2023 Reviewed by: Brunilda Cruz APRN.CHELI - Fully Assessed Reason for Visit: Results [95] Prescriptions as of 06/04/2023 - rivaroxaban (XARELTO) 20 mg tablet Take 1 tablet by mouth daily with dinner. - sotalol (BETAPACE) 240 mg tablet Take 1 tablet by mouth every 12 hours. - omeprazole (PRILOSEC) 20 mg capsule Take 20 mg by mouth every morning. - HYDROcodone-Acetaminophen (NORCO) 7.5-325 mg per tablet Take 1 tablet by mouth every 6 hours as needed. - Cholecalciferol, Vitamin D3, 125 mcg/mL (5,000 unit/mL) drop Take 5,000 Units by mouth every morning. - semaglutide (OZEMPIC) 2 mg/dose (8 mg/3 mL) pen injector Inject 2 mg subcutaneously one time a week. Takes on Wednesdays - tamsulosin (FLOMAX) 0.4 mg Take 0.4 mg by mouth two times a day. - VITAMIN B COMPLEX ORAL Take 1 tablet by mouth once daily. - amitriptyline (ELAVIL) 100 mg tablet Take 100 mg by mouth daily at bedtime. - atorvastatin (LIPITOR) 10 mg tablet Take 10 mg by mouth daily at bedtime. - fluticasone (FLONASE) 50 mcg/actuation nasal spray Use 1 [place] in each nostril as needed. - gabapentin (NEURONTIN) 600 mg tablet Take 600 mg by mouth three times a day. - VASCEPA 1 gram capsule Take 2 g by mouth two times a day with meals. - levothyroxine (SYNTHROID) 50 mcg tablet Take 50 mcg by mouth daily before breakfast. - lisinopril (ZESTRIL) 40 mg tablet Take 40 mg by mouth two times a day. - metFORMIN (GLUCOPHAGE) 500 mg tablet Take 1,000 mg by mouth two times a day with meals. - potassium chloride SR (MICRO-K) 10 mEq CR capsule Take 10 mEq by mouth every morning. Problem List As Of Date 06/04/2023 Noted Resolved Prostate CA (HCC) [C61] 01/26/2023 Polyneuropathy [G62.9] 01/26/2023 PAF (paroxysmal atrial fibrillation) (HCC) [I48*01/26/2023 Mixed hyperlipidemia [E78.2] 01/26/2023 assisted current use of anticoagulant [Z79.01] 01/26/2023 Insomnia [G47.00] 01/26/2023 Hypothyroidism [E03.9] 01/26/2023 History of stress test [Z92.89] 09/25/2022 DM II (diabetes mellitus, type II) (HCC) [E11.9]01/26/2023 CKD (chronic kidney disease) [N18.9] 01/26/2023 Chronic pain [G89.29] 01/26/2023 BPH (benign prostatic hyperplasia) [N40.0] 01/26/2023 Benign hypertension [I10] 01/26/2023 Anxiety [F41.9] 01/26/2023 Obesity (BMI 30.0-34.9) [E66.9] 02/06/2023 CKD (chronic kidney disease) stage 2, GFR 60-89*02/06/2023 PVC's (premature ventricular contractions) [I49*02/06/2023 AV node dysfunction [I45.89] 02/06/2023 Sinus bradycardia [R00.1] 02/06/2023 Acute gangrenous cholecystitis [K81.0] 02/06/2023 Chronic renal insufficiency [N18.9] 02/07/2023 Cirrhosis of liver without ascites, unspecified*02/22/2023 Solitary pulmonary nodule [R91.1] 02/06/2023 Thrombocytopenia, unspecified (HCC) [D69.6] 02/06/2023 Lung nodules [R91.8] 03/02/2023 H/O echocardiogram [Z92.89] 03/21/2023 Osteoarthritis of multiple joints [M15.9] 04/03/2023 Pacemaker [Z95.0] 04/04/2023 Paroxysmal atrial fibrillation (HCC) [I48.0] 04/06/2023 Encounter Status:Closed by CHAD DAVIS on 06/04/23 Normal [facility] CBC W Auto Differential pane l (Bld)Ordered By: Javon Galvez on 04-26-2023 Basophils (Bld) [#/Vol] 0.0 10*3/uL 0.0 - 0.2 10*3/uL [facility] Basophils/100 WBC (Bld) 0.3 % 0.0 - 2.0 % [facility] Eosinophils (Bld) [#/Vol] 0.2 10*3/uL 0.0 - 0.5 10*3/uL [facility] Eosinophils/100 WBC (Bld) 2.6 % 1.0 - 6.0 % [facility] Erythrocyte distribution width (RBC) [Ratio] 18.4 % High 11.5 - 14.5 % [facility] Hematocrit (Bld) [Volume fraction] 28.7 % Low 40.0 - 52.0 % [facility] Hemoglobin (Bld) [Mass/Vol] 9.4 g/dL Low 13.0 - 18.0 g/dL [facility] Interpretation and review of laboratory results Abnormal [facility] Lymphocytes (Bld) [#/Vol] 0.9 10*3/uL Low 1.0 - 4.3 10*3/uL [facility] Lymphocytes/100 WBC (Bld) 14.7 % Low 20.0 - 40.0 % [facility] MCH (RBC) [Entitic mass] 27.4 pg 26.0 - 34.0 pg [facility] MCHC (RBC) [Mass/Vol] 32.9 % 32.0 - 36.0 % [facility] MCV (RBC) [Entitic vol] 83.4 fL 80.0 - 98.0 fL [facility] Monocytes (Bld) [#/Vol] 0.7 10*3/uL 0.0 - 0.8 10*3/uL [facility] Monocytes/100 WBC (Bld) 12.1 % High 2.0 - 10.0 % [facility] [employer] Neutrophils (Bld) [#/Vol] 4.1 10*3/uL 1.8 - 7.0 10*3/uL [facility] Neutrophils/100 WBC (Bld) 70.3 % 40.0 - 80.0 % [facility] [employer] Nucleated RBC/100 WBC (Bld) [Ratio] 0.0 % [facility] Platelet mean volume (Bld) [Entitic vol] 9.2 fL 7.4 - 12.4 fL [facility] Platelets (Bld) [#/Vol] 121 10*3/uL Low 140 - 440 10*3/uL [facility] RBC (Bld) [#/Vol] 3.44 10*6/uL Low 4.40 - 5.90 10*6/uL [facility] WBC (Bld) [#/Vol] 5.8 10*3/uL 3.6 - 10.7 10*3/uL [facility] Abdomen WO contraston Postoperative change s of prostatectomy. Small volume pneumoperitoneum is nonspecific though may be postoperative. Viscous perforation is probably less likely though not entirely excluded. Excessive body hall subcutaneous soft tissue emphysema is discussed is nonspecific and also may be postoperative. Correlate with surgical history and physical exam. Close clinical follow-up is suggested to exclude an infectious inflammatory process is not entirely excluded. Trace perihepatic ascites and mildly nodular contour to the liver, nonspecific though can be seen with cirrhosis in the appropriate clinical setting. Mild right hydroureteronephrosis. See body report for additional chronic findings. CRITICAL TEST RESULT COMMUNICATION: Notification of these findings was made to SEAN COATS via phone call on 04/26/2023 11:26 PM EST. Report Dictated on Electronically Signed By: Jun Platt MD Electronically Signed Date/Time: 04/26/2023 11:27 PM [facility] Patient Name: CADE ISLAS : 1945 Exam Date/Time: 04/26/2023 23:12 Procedure: CT ABDOMEN PELVIS WO IV CONTRAST Ordering Provider: COATS TYLER Reason For Exam: Recent prostatectomy, worsening abdominal pain distention, eval for hematoma CT ABDOMEN AND PELVIS WITHOUT IV CONTRAST CLINICAL HISTORY: Recent prostatectomy. Worsening abdominal pain and distention. TECHNIQUE: CT of the abdomen and pelvis was performed without IV contrast using standard technique. Dose reduction was employed with automated exposure control. Contrast: None COMPARISON: None available RESULT: Limitations: Unenhanced imaging is limited for the evaluation of some intra-abdominal and pelvic pathology. Liver: No mass. Mildly nodular contours. Biliary: No bile duct dilation. Cholecystectomy Spleen: No mass. No splenomegaly. Pancreas: No mass or duct dilation. Adrenals:No mass. Kidneys: Mild right hydroureteronephrosis. No obstructing renal calculus. 3 mm nonobstructing left renal calculus. No left hydronephrosis. GI tract: No dilation. Appendix is unremarkable. Colonic diverticulosis without changes of diverticulitis. Excessive colonic fecal burden, nonspecific though can be seen with constipation if in the appropriate clinical setting. Lymph nodes: No abdominal lymphadenopathy. Mesentery/Peritoneum: No mass or drainable fluid collection. Small volume pneumoperitoneum is present. Small volume perihepatic ascites. Retroperitoneum: No mass. Vasculature: Arterial atherosclerotic disease without aneurysm. Pelvis: Cannon catheter is present in the urinary bladder. Urinary bladder is decompressed and suboptimally assessed. Small air locule in the bladder is likely from instrumentation. Postoperative changes related to prostatectomy. No drainable fluid collection in the operative bed. Small air locules are present. Bones/Soft Tissues: Extensive subcutaneous soft tissue emphysema is present in the abdominal wall bilaterally and at midline involving the perineum and scrotum. Diffuse soft tissue emphysema is noted extending in both lower extremities, right greater than left superficially as well as in the deep fascial planes on the right. Stimulator device is noted in the left gluteal region with leads extending into the spine now canal and extending to the T9-T10 level. Lower thorax: Mild streaky bibasilar atelectasis. Partially imaged cardiac device leads. Coronary calcifications. [facility] Jun Platt MD - 04/26/2023 Patient Name: CADE ISLAS : 1945 Exam Date/Time: 04/26/2023 23:12 Procedure: CT ABDOMEN PELVIS WO IV CONTRAST Ordering Provider: COATS TYLER Reason For Exam: Recent prostatectomy, worsening abdominal pain distention, eval for hematoma CT ABDOMEN AND PELVIS WITHOUT IV CONTRAST CLINICAL HISTORY: Recent prostatectomy. Worsening abdominal pain and distention. TECHNIQUE: CT of the abdomen and pelvis was performed without IV contrast using standard technique. Dose reduction was employed with automated exposure control. Contrast: None COMPARISON: None available RESULT: Limitations: Unenhanced imaging is limited for the evaluation of some intra-abdominal and pelvic pathology. Liver: No mass. Mildly nodular contours. Biliary: No bile duct dilation. Cholecystectomy Spleen: No mass. No splenomegaly. Pancreas: No mass or duct dilation. Adrenals:No mass. Kidneys: Mild right hydroureteronephrosis. No obstructing renal calculus. 3 mm nonobstructing left renal calculus. No left hydronephrosis. GI tract: No dilation. Appendix is unremarkable. Colonic diverticulosis without changes of diverticulitis. Excessive colonic fecal burden, nonspecific though can be seen with constipation if in the appropriate clinical setting. Lymph nodes: No abdominal lymphadenopathy. Mesentery/Peritoneum: No mass or drainable fluid collection. Small volume pneumoperitoneum is present. Small volume perihepatic ascites. Retroperitoneum: No mass. Vasculature: Arterial atherosclerotic disease without aneurysm. Pelvis: Cannon catheter is present in the urinary bladder. Urinary bladder is decompressed and suboptimally assessed. Small air locule in the bladder is likely from instrumentation. Postoperative changes related to prostatectomy. No drainable fluid collection in the operative bed. Small air locules are present. Bones/Soft Tissues: Extensive subcutaneous soft tissue emphysema is present in the abdominal wall bilaterally and at midline involving the perineum and scrotum. Diffuse soft tissue emphysema is noted extending in both lower extremities, right greater than left superficially as well as in the deep fascial planes on the right. Stimulator device is noted in the left gluteal region with leads extending into the spine now canal and extending to the T9-T10 level. Lower thorax: Mild streaky bibasilar atelectasis. Partially imaged cardiac device leads. Coronary calcifications. IMPRESSION: Postoperative changes of prostatectomy. Small volume pneumoperitoneum is nonspecific though may be postoperative. Viscous perforation is probably less likely though not entirely excluded. Excessive body hall subcutaneous soft tissue emphysema is discussed is nonspecific and also may be postoperative. Correlate with surgical history and physical exam. Close clinical follow-up is suggested to exclude an infectious inflammatory process is not entirely excluded. Trace perihepatic ascites and mildly nodular contour to the liver, nonspecific though can be seen with cirrhosis in the appropriate clinical setting. Mild right hydroureteronephrosis. See body report for additional chronic findings. CRITICAL TEST RESULT COMMUNICATION: Notification of these findings was made to SEAN COATS via phone call on 04/26/2023 11:26 PM EST. Report Dictated on Electronically Signed By: Jun Platt MD Electronically Signed Date/Time: 04/26/2023 11:27 PM EST [facility] Radiology Study observation (narrative) [facility] Comprehensive metabolic 1998 panelon 04-26-2023 Albumin [Mass/Vol] 3.3 g/dL Low 3.5 - 5.0 g/dL [facility] ALP [Catalytic activity/Vol] 148 U/L High 38 - 126 U/L [facility] ALT [Catalytic activity/Vol] 55 U/L High 0 - 49 U/L [facility] Anion gap [Moles/Vol] 6 mmol/L 3 - 13 mmol/L [facility] AST [Catalytic activity/Vol] 59 U/L High 15 - 46 U/L [facility] Bilirubin [Mass/Vol] 0.8 mg/dL 0.2 - 1 .3 mg/dL [facility] Calcium [Mass/Vol] 9.0 mg/dL 8.4 - 10. 4 mg/dL [facility] Chloride [Moles/Vol] 103 mmol/L 98 - 10 7 mmol/L [facility] CO2 [Moles/Vol] 24 mmol/L 22 - 30 mmol/L [facility] Creatinine [Mass/Vol] 1.18 mg/dL 0.66 - 1.25 mg/dL [facility] GFR/1.73 sq M.predicted MDRD (S/P/Bld) [Vol rate/Area] 63.6 mL/min/{1.73_m2} - PINF [facility] Comment on above: Calculation based on the Chronic Kidney Disease Epidemiology Collaboration (CKD-EPI) equation refit without adjustment for race Glucose [Mass/Vol] 113 mg/dL High 70 - 100 mg/dL [facility] Interpretation and review of laboratory results Abnormal [facility] Potassium [Moles/Vol] 4.1 mmol/L 3.5 - 5.1 mmol/L [facility] Protein [Mass/Vol] 6.1 g/dL Low 6.3 - 8.2 g/dL [facility] Sodium [Moles/Vol] 133 mmol/L Low 135 - 145 mmol/L [facility] Urea nitrogen [Mass/Vol] 26 mg/dL High 9 - 20 mg/dL [facility] Laboratory - Chemistry and C hemistry - challengeon 04-26-2023 Lipase [Catalytic activity/Vol] 70 U/L 23 - 300 U/L [facility] Lipase [Catalytic activity/V ol]on 04-26-2023 Interpretation and review of laboratory results Normal [facility] No Panel Informationon 04-26 [facility] US.doppler Scrotum and testi cinthia 04-26-2023 Air is present in the scrotum which degrades assessment. See recent CT for additional details. No acute sonographic abnormality of the testes. No evidence of torsion. Report Dictated on Electronically Signed By: Jun Platt MD Electronically Signed Date/Time: 04/26/2023 11:52 PM [facility] Patient Name: CADE ISLAS : 1945 Exam Date/Time: 04/26/2023 23:15 Procedure: US SCROTUM Ordering Provider: COATS TYLER Reason For Exam: scrotal pain, swelling, eval for hematoma, torsion EXAMINATION: SCROTAL ULTRASOUND WITH DOPPLER IMAGING HISTORY: Scrotal pain and swelling. TECHNIQUE: Sonography of the scrotal contents with color flow and spectral Doppler imaging of the testicular vasculature was performed. Images were obtained and stored in a permanent archive. COMPARISON: CT abdomen/pelvis 04/26/2023 RESULT: Assessment is limited by shadowing from air in the scrotum. RIGHT TESTIS: Size: 4.3 x 3.0 x 3.0 cm Parenchyma: Heterogeneity is likely artifactual. No calcifications or mass. Epididymis: 0.7 cm epididymal cyst/spermatocele. Vascularity: Normal intratesticular arterial and venous flow with normal spectral waveforms. LEFT TESTIS: Size: 4.3 x 2.7 x 2.5 cm Parenchyma: Heterogeneity is likely artifactual. No calcifications or mass. Epididymis: Normal Vascularity: Normal intratesticular arterial and venous flow with normal spectral waveforms. HYDROCELE: none VARICOCELE: none [facility] Jun Platt MD - 04/26/2023 [facility]ADE [facility] : 1945 [id number] Exam Date/Time: 04/26/2023 23:15 Procedure: US SCROTUM Ordering Provider: COATS TYLER Reason For Exam: scrotal pain, swelling, eval for hematoma, torsion EXAMINATION: SCROTAL ULTRASOUND WITH DOPPLER IMAGING HISTORY: Scrotal pain and swelling. TECHNIQUE: Sonography of the scrotal contents with color flow and spectral Doppler imaging of the testicular vasculature was performed. Images were obtained and stored in a permanent archive. COMPARISON: CT abdomen/pelvis 04/26/2023 RESULT: Assessment is limited by shadowing from air in the scrotum. RIGHT TESTIS: Size: 4.3 x 3.0 x 3.0 cm Parenchyma: Heterogeneity is likely artifactual. No calcifications or mass. Epididymis: 0.7 cm epididymal cyst/spermatocele. Vascularity: Normal intratesticular arterial and venous flow with normal spectral waveforms. LEFT TESTIS: Size: 4.3 x 2.7 x 2.5 cm Parenchyma: Heterogeneity is likely artifactual. No calcifications or mass. Epididymis: Normal Vascularity: Normal intratesticular arterial and venous flow with normal spectral waveforms. HYDROCELE: none VARICOCELE: none IMPRESSION: Air is present in the scrotum which degrades assessment. See recent CT for additional details. No acute sonographic abnormality of the testes. No evidence of torsion. Report Dictated on Electronically Signed By: Jun Platt MD Electronically Signed Date/Time: 04/26/2023 11:52 PM EST [facility] Radiology Study observation (narrative) [employer] US.doppler Scrotum and testi cleOrdered By: Jun Platt on 04-26-2023 [employer] Work Phone: Urinalysis complete panel (U )on 04-26-2023 Bacteria LM.HPF (Urine sed) [#/Area] Few Abnormal Negative /HPF [facility] Bilirubin Ql (U) Negative Negative mg/dL [facility] Clarity (U) Turbid Abnormal Clear [facility] Color (U) Yellow Lt. Yellow [facility] Epithelial cells.squamous LM.HPF (Urine sed) [#/Area] 0-2 [facility] Glucose Ql (U) Normal Normal (<70) mg/dL [facility] Hemoglobin Ql (U) >1.0 Abnormal Negative mg/dL [facility] Hyaline casts Auto (Urine sed) [#/Area] 11-25 Abnormal Negative /LPF [facility] Interpretation and review of laboratory results Abnormal [facility] Ketones (U) [Mass/Vol] Negative Negat galen mg/dL [facility] Leukocyte esterase Test strip Ql (U) 250 Abnormal Negative Naida/uL [facility] Mucus LM.HPF (Urine sed) [#/Area] Few Negative /LPF [facility] Nitrite Ql (U) Negative Negative [facility] pH (U) 5.5 [pH] 5.0 - 8.0 pH [facility] Protein (U) [Mass/Vol] 100 mg/dL Abnormal Negative [facility] RBC LM.HPF (Urine sed) [#/Area] /[HPF] Abnormal [facility] Specific gravity (U) [Rel density] 1.021 1.005 - 1.030 [facility] Urobilinogen (U) [Mass/Vol] Normal Normal (0-1) mg/dL [facility] WBC LM.HPF (Urine sed) [#/Area] 26-50 Abnormal [facility] Basic metabolic 1998 panelon 04-24-2023 Anion gap [Moles/Vol] 10 mmol/L 3 - 13 mmol/L [facility] Calcium [Mass/Vol] 8.7 mg/dL 8.4 - 10. 4 mg/dL [facility] Chloride [Moles/Vol] 103 mmol/L 98 - 10 7 mmol/L [facility] CO2 [Moles/Vol] 22 mmol/L 22 - 30 mmol/L [facility] Creatinine [Mass/Vol] 1.05 mg/dL 0.66 - 1.25 mg/dL [facility] GFR/1.73 sq M.predicted MDRD (S/P/Bld) [Vol rate/Area] 73.1 mL/min/{1.73_m2} - PINF [facility] Comment on above: Calculation based on the Chronic Kidney Disease Epidemiology Collaboration (CKD-EPI) equation refit without adjustment for race Glucose [Mass/Vol] 152 mg/dL High 70 - 100 mg/dL [facility] Interpretation and review of laboratory results Abnormal [facility] Potassium [Moles/Vol] 4.8 mmol/L 3.5 - 5.1 mmol/L [facility] Sodium [Moles/Vol] 135 mmol/L 135 - 145 mmol/L [facility] Urea nitrogen [Mass/Vol] 21 mg/dL High 9 - 20 mg/dL [facility] CBC panel Auto (Bld)Ordered By: Rajesh Zacarias on 04-24-2023 Erythrocyte distribution width (RBC) [Ratio] 18.4 % High 11.5 - 14.5 % [facility] Hematocrit (Bld) [Volume fraction] 33.2 % Low 40.0 - 52.0 % [facility] Hemoglobin (Bld) [Mass/Vol] 11.1 g/dL Low 13.0 - 18.0 g/dL [facility] Interpretation and review of laboratory results Abnormal [facility] MCH (RBC) [Entitic mass] 28.0 pg 26.0 - 34.0 pg [facility] MCHC (RBC) [Mass/Vol] 33.4 % 32.0 - 36.0 % [facility] MCV (RBC) [Entitic vol] 83.8 fL 80.0 - 98.0 fL [facility] Platelet mean volume (Bld) [Entitic vol] 8.7 fL 7.4 - 12.4 fL [facility] Platelets (Bld) [#/Vol] 117 10*3/uL Low 140 - 440 10*3/uL [facility] RBC (Bld) [#/Vol] 3.96 10*6/uL Low 4.40 - 5.90 10*6/uL [facility] WBC (Bld) [#/Vol] 8.2 10*3/uL 3.6 - 10.7 10*3/uL [facility] LaboratoryOrdered By: Bubba Srivastava on 04-24-2023 Fluid Nom (Body fld) Peritoneal Fluid [facility] Laboratory - Chemistry and C hemistry - challengeon 04-24-2023 Glucose [Mass/Vol] 247 mg/dL High 70 - 100 mg/dL [facility] Glucose [Mass/Vol] 135 mg/dL High 70 - 100 mg/dL [facility] Glucose [Mass/Vol] 155 mg/dL High 70 - 100 mg/dL [facility] Laboratory - Chemistry and C hemistry - challengeOrdered By: Bubba Srivastava on 04-24-2023 Creatinine (Body fld) [Mass/Vol] 0.83 mg/dL No Range [facility] No Panel Informationon 04-24 Interpretation and review of laboratory results Abnormal [facility] Performed by: [facility], [address] [place] [id number] CLIA ID: [id number] [facility] Interpretation and review of laboratory results Abnormal [facility] Performed by: [facility], [address] [place] [address] CLIA ID: [id number] [facility] Interpretation and review of laboratory results Abnormal [facility] Performed by: [facility], [address] [place] [id number] CLIA ID: [id number] [facility] Radiology Study observation (narrative) [facility] Radiology Study observation (narrative) [facility] Radiology Study observation (narrative) [facility] No Panel InformationOrdered By: Bubba Srivastava on 04-24-2023 This test was develo ped and its performance characteristics determined by [employer]. It has not been cleared or approved by the [place] Food and Drug Administration. This test was performed in a CLIA certified laboratory and is intended for clinical purposes. [facility] Laboratory - Chemistry and C hemistry - challengeon 04-23-2023 Glucose [Mass/Vol] 138 mg/dL High 70 - 100 mg/dL [facility] Glucose [Mass/Vol] 131 mg/dL High 70 - 100 mg/dL [facility] Glucose [Mass/Vol] 101 mg/dL High 70 - 100 mg/dL [facility] No Panel Informationon 04-23 Interpretation and review of laboratory results Abnormal [facility] Performed by: [facility], [address] [place] [address] CLIA ID: [id number] [facility] Interpretation and review of laboratory results Abnormal [facility] Performed by: [facility], [address] [place] [address] CLIA ID: [id number] [facility] Interpretation and review of laboratory results Abnormal [facility] Performed by: [facility], [address] [place] [address] CLIA ID: [id number] [facility] Radiology Study observation (narrative) [facility] Radiology Study observation (narrative) [facility] Radiology Study observation (narrative) [facility] Urinalysis complete panel (U )on 02-22-2023 Bacteria LM.HPF (Urine sed) [#/Area] None Seen None Seen /HPF [facility] Bilirubin Ql (U) Negative Negative [facility] Clarity (Unsp spec) Hazy Abnormal Clear [facility] Color (U) Billie Abnormal Yellow [facility] Epithelial cells LM.HPF (Urine sed) [#/Area] None Seen [facility] Glucose Test strip (U) [Mass/Vol] Negative Negative [facility] Hemoglobin Ql (U) Negative Negative [facility] Hyaline casts (Urine sed) [#/Area] 1-3 /LPF Abnormal 0 /LPF [facility] Ketones Ql (U) Negative Negative [facility] Leukocyte esterase Test strip Ql (U) Negative Negative [facility] Nitrite Ql (U) Negative Negative [facility] pH (U) 5.0 [pH] 5.0 - 8.0 [facility] Protein (U) [Mass/Vol] 1+ Abnormal Negative [facility] RBC LM.HPF (Urine sed) [#/Area] 0-3 /HPF 0-3 /HPF [facility] Specific gravity (U) [Rel density] 1.019 1.005 - 1.030 [facility] Urobilinogen Ql (U) Negative Negative [facility] WBC LM.HPF (Urine sed) [#/Area] 0-5 /HPF 0-5 /HPF [facility] BONE IMAGING WHOLE BODYon 02-06-2023 MO BONE IMAGING WHOLE BODY ORIGINAL EXAMINATION: WHOLE BODY BONE SCAN02/06/2023 1:13 pm TECHNIQUE: The patient received an intravenous injection of 25.8 mCi of Tc-99m MDP. Anterior and posterior images of the skeleton from skull vertex to feet were then acquired. Additional regional skeletal images were also obtained. COMPARISON: 02/05/2023 HISTORY: ORDERING SYSTEM PROVIDED HISTORY: Reason for Exam: Prostate cancer FINDINGS: There are no suspicious foci of radiotracer uptake to suggest osseous metastatic disease. There are areas of arthritic uptake including the shoulders, knees, and feet. Activity in the bilateral kidneys and the urinary bladder represent normal route of radiopharmaceutical excretion. The soft tissue distribution of radiotracer activity is within normal limits. IMPRESSION: No evidence of osseous metastatic disease. I have personally reviewed the images of this examination and agree with the resident's findings and interpretation. Interpreted by: Asia Mcclain Preliminary Report By: Kota Serrano Electronically signed By Asia Mcclain Dictated Date: 02/06/2023 2:09:53 PM Prelim Date: 02/06/2023 6:05:31 PM Sign Date: 02/06/2023 6:05:31 PM Ordering Provider: SUNNY FARAH [facility]) CRE POCon 02-05-2023 Perf Loc - POCT Tested at AM [facility]) Comment on above: Result Comment: [facility] [address], [place] [address] Creatinine [Mass/Vol] 0.99 mg/dL Normal 0.60-1.40 [facility]) Estimated GFR - POCT >60 Normal >=60 [facility]) Comment on above: Result Comment: Chronic Kidney Disease: Less than 60 mL/min/1.73 square meters End Stage Renal Disease: Less than 15 mL/min/1.73 square meters Performing Instrument - POCT RADCREAT3 [facility] ([place]) CT ABD/PELVIS W/ IV CONTRAST ONLYon 02-05-2023 CT ABD/PELVIS W/ IV CONTRAST ONLY ORIGINAL EXAMINATION: CT OF THE ABDOMEN AND PELVIS WITH CONTRAST 02/05/2023 7:27 am TECHNIQUE: CT of the abdomen and pelvis was performed with the administration of intravenous contrast. Multiplanar reformatted images are provided for review. Automated exposure control, iterative reconstruction, and/or weight based adjustment of the mA/kV was utilized to reduce the radiation dose to as low as reasonably achievable. COMPARISON: None. HISTORY: ORDERING SYSTEM PROVIDED HISTORY: Reason for Exam: Prostate cancer ELEVATED PSA, NO CURRENT COMPLAINTS/SYMPTOMS PER PATIENT FINDINGS: Recist 1.1: POTENTIAL TARGET TUMOR LESIONS (maximum 5 lesions, maximum 2 per organ, longest dimension in axial plane reported, >10 mm, reproducible lesions): None POTENTIAL TARGET LYMPH NODES (>15 mm short axis, maximum 2): None NONTARGET LESIONS (Definite tumor lesions, lymph nodes 10-14 mm short axis, immeasurable lesions such as lymphangitic involvement, ascites, pleural effusions, etc.): None Degenerative changes are noted in the spine. Intrathecal pump or catheter noted. Summa talc artifact at the left gluteal region is noted from the pack. Minimal scarring is evident at the lung bases. Cholelithiasis is evident. No focal liver lesions seen. The liver does have a somewhat nodular surface appearance, and this may be seen with cirrhosis or hepatocellular disease. A 1 cm cyst or hemangioma is noted centrally within the spleen. The spleen is otherwise unremarkable. The adrenal glands and pancreas appear normal. A duodenal diverticulum is noted. Scattered renal cysts are present. Punctate 2 mm left midpole renal stone is suspected as well. No other kidney finding. Small upper abdominal lymph nodes are present, within normal limits of size. No definite enlarged lymph nodes are seen. The prostate gland is enlarged most compatible with BPH. Mild bladder wall thickening is probably related to an element of outlet obstruction. No definite obturator or other pelvic masses are visible. Mild to moderate diverticulosis is present at the sigmoid colon with scattered diverticula elsewhere as well. No other GI tract abnormality is visible. A small fat containing periumbilical hernia is evident. No additional contributory finding. IMPRESSION: 1. No definite evidence for metastatic disease. 2. Cholelithiasis. 3. Suspect punctate 2 mm left midpole renal stone without evidence for obstruction. 4. Prostate enlargement/BPH with minor bladder wall thickening. 5. Mild diverticulosis without diverticulitis. Interpreted by: Yogesh Merino MD Preliminary Report By: Yogesh Merino MD Electronically signed By Yogesh Merino MD Dictated Date: 02/05/2023 7:48:03 AM Prelim Date: 02/05/2023 7:50:50 AM Sign Date: 02/05/2023 7:50:50 AM Ordering Provider: SUNNY FARAH [facility] ([place]) Final Surgical Pathology Rep [facility] 01-04-2023 Final Surgical Pathology Report . Pathology Reports Accession: Collected Date/Time: Received Date/Time: Pathologist: [id number] 01/03/2023 08:50 EDT 01/03/2023 14:35 EDT NURYS FLORENCE MD Final Surgical Pathology Report DIAGNOSIS: A. LEFT LATERAL BASE: - NEGATIVE FOR TUMOR B. LEFT LATERAL MID: - NEGATIVE FOR TUMOR C. LEFT LATERAL APEX: - NEGATIVE FOR TUMOR D. LEFT BASE: - NEGATIVE FOR TUMOR E. LEFT MID: - NEGATIVE FOR TUMOR F. LEFT APEX: - NEGATIVE FOR TUMOR G. RIGHT BASE: - NEGATIVE FOR TUMOR H. RIGHT MID: - ADENOCARCINOMA, PROSTATIC ACINAR TYPE, BEAU GRADE 4+5 INVOLVING 60% OF THE NEEDLE CORE BIOPSY I. RIGHT APEX: - ADENOCARCINOMA, PROSTATIC ACINAR TYPE, BEAU GRADE 4+4 INVOLVING 40% OF THE NEEDLE CORE BIOPSY J. RIGHT LATERAL BASE: - NEGATIVE FOR TUMOR K. RIGHT LATERAL MID: - ADENOCARCINOMA, PROSTATIC ACINAR TYPE, BEAU GRADE 5+4 INVOLVING 40% OF THE NEEDLE CORE BIOPSY L. RIGHT LATERAL APEX: - 5+4 INVOLVING 70% OF THE NEEDLE CORE BIOPSY CLINICAL INFORMATION: ELEVATED PSA Procedure: PROSTATE BX SPECIMEN: A LLB B LLM C LLA D LB E LM F LA G RB H RM I RA J RLB Pathology Reports Accession: Collected Date/Time: Received Date/Time: Pathologist: [id number] 01/03/2023 08:50 EDT 01/03/2023 14:35 EDT NURYS FLORENCE MD SPECIMEN: K RLM L RLA GROSS DESCRIPTION: All parts labelled with patient name and [id number] A. Received in formalin labelled Left Lateral Base one mcmullen-white cylindrical prostate core measuring 0.9cm. B. Received in formalin labelled Left Lateral Mid one mcmullen-white cylindrical prostate core measuring 0.4cm. C. Received in formalin labelled Left Lateral Norvell one mcmullen-white cylindrical prostate core measuring 0.9cm. D. Received in formalin labelled Left Base one mcmullen-white cylindrical prostate core measuring 0.6cm. E. Received in formalin labelled Left Mid one mcmullen-white cylindrical prostate core measuring 0.6cm. F. Received in formalin labelled Left Norvell one mcmullen-white cylindrical prostate core measuring 1.6cm. G. Received in formalin labelled Right Base one mcmullen-white cylindrical prostate core measuring 1.4cm. H. Received in formalin labelled Right Mid one mcmullen-white cylindrical prostate core measuring 0.8cm. I. Received in formalin labelled Right Norvell one mcmullen-white cylindrical prostate core measuring 0.7cm. J. Received in formalin labelled Right Lateral Base one mcmullen-white cylindrical prostate core measuring 0.5cm. K. Received in formalin labelled Right Lateral Mid one mcmullen-white cylindrical prostate core measuring 0.5cm. L. Received in formalin labelled Right Lateral Norvell one mcmullen-white cylindrical prostate core measuring 1.5cm. Viola Salinas, Grossing Electric Sign Wirer/ Dr. Nurys Florence, Pathologist Dictated by Viola Salinas MICROSCOPIC DESCRIPTION: The microscopic examination is performed, except in the case of Gross Only. Electronically Signed by Pathology Report verified by [facility] NURYS FLORENCE Sign out Date: 01/04/2023 14:39 Performing Lab: [facility], [address] [place] [address] Pathology Dept Disclaimer If ancillary studies were utilized, the following Laboratory Developed Test (LDT) disclaimer will apply: Pathology Reports Accession: Collected Date/Time: Received Date/Time: Pathologist: [id number] 01/03/2023 08:50 EDT 01/03/2023 14:35 EDT NURYS FLORENCE MD Disclaimer Under CLIA requirements, [facility] Pathology Laboratory is qualified to perform high complexity testing. For all ancillary stains, positive and negative controls stain appropriately. Performance characteristics of immunohistochemical and chromogenic in-situ hybridization tests have been determined by [facility] Pathology Laboratory. These tests are used for clinical purposes, They should not be regarded as investigational or for research. Normal [facility] ([place]) PSAon 10-30-2022 Prostate Specific Antigen 5.14 ng/mL High 0.02-4.00 [facility] ([place]) Comment on above: Result Comment: Marysol ent results determined by assays using different manufacturers for methods may not be comparable. Performed By: #### P SA #### [address] [address] [place] ABDOMEN COMPLETEon 2022 [facility] PSAon 10-10-2022 Prostate Specific Antigen 5.80 ng/mL High 0.02-4.00 [facility] ([place]) Comment on above: Result Comment: Marysol ent results determined by assays using different manufacturers for methods may not be comparable. Performed By: #### P SA #### [address] [address] [place] CARDIAC PERF STRESS/PHARM on 09-25-2022 [facility] Glucose Glucometer (BldC) [M ass/Vol]Ordered By: Dr. Estevez on 09-11-2022 Glucose [Mass/Vol] 99 mg/dL 74-106 [facility] Comment on above: MANAGEMENT OF TARUN Shelton CARE PER NURSING PROTOCOL DSиван 07-12-2021 DS DATE OF ADMISSION: 07/12/2021 DATE OF DISCHARGE: 07/12/2021 DISCHARGE/FINAL DIAGNOSIS: Deforming erosive osteoarthritis, left index finger distal interphalangeal joint. OPERATION/PROCEDURE: Debridement and arthrodesis with correction of malalignment, distal interphalangeal joint, left index finger. DISCHARGE DISPOSITION: Home with who was present. All questions answered. Self-care. MEDICATIONS GIVEN: He is getting pain medicine from pain management. He was instructed to keep dressing clean and dry, ice and elevate, maintain dressing and splint at all times. Contact the office should questions or problems arise. HOSPITAL COURSE: He was admitted to the outpatient surgery department afebrile. Seen by anesthesia, felt suitable for general anesthetic. History and physical updated with no new medical events, allergies or medications. He was taken to the operating room where the above procedure was performed, which he tolerated well. Progressed through the recovery process, meeting criteria for home discharge [facility] PATIENT NAME: CADE ISLAS [address] Edwards MEDICAL REC #: [id number] [place] [address] ADMIT DATE: DISCHARGE DATE: DISCHARGE SUMMARY ATTENDING PHY: Nurys Mueller DO self-care. Nurys Mueller DO [id number] SSI File#: [id number] END OF DOCUMENT / CHANGE LOG FOLLOWS Last Edited By Elec. Signed By Nurys Mueller DO #MORDA Nurys Mueller DO #MORDA on 08/03/2021 05:40 ET on 08/03/2021 05:40 ET Revision Number - 2 Verified/Reviewed by 08/03/21 0540 CARLEY [facility] PATIENT NAME: CADE ISLAS [address] [facility] [address] Edwards MEDICAL REC #: [id number] [place] [address] ADMIT DATE: DISCHARGE DATE: DISCHARGE SUMMARY ATTENDING PHY: Nurys Mueller DO Normal [facility] FLUOROSCOPY IN OR/PAIN MGTon 07-12-2021 FLUOROSCOPY IN OR/PAIN MGT FLUOROSCOPY IN OR/PAIN MGT Ordering Physician: Nurys Mueller DO FLUOROSCOPY AND RADIOGRAPHS UTILIZED IN THE OR Clinical Statement: Pain left index finger FINDINGS: 31.6 second fluoroscopy time utilized. A total of 5 radiographs were obtained during screw placement through the distal interphalangeal joint. IMPRESSION: Documentation of fluoroscopy and radiographs utilized in the OR This report was electronically signed by Elver Rojas MD 07/12/2021 2:12 PM Reported By: ELVER ROJAS M.D. Signed By: ELVER ROJAS M.D. Normal [facility] GLUCOSE METERon 07-12-2021 Glucose [Mass/Vol] 118 mg/dL Normal 85-[facility] OPERATIVE REPORT Normal [facility] OR DATE OF SERVICE: PREOPERATIVE DIAGNOSIS: Osteoarthritis, distal interphalangeal joint, index finger with ulnar angular deformity/displacement. POSTOPERATIVE DIAGNOSIS: Osteoarthritis, distal interphalangeal joint, index finger with ulnar angular deformity/displacement. OPERATION: Debridement, distal interphalangeal joint with realignment and arthrodesis, DIP joint, left index finger. SURGEON: Nurys Mueller DO INSPECTOR TOYS: Nurys Jacob DO ANESTHESIA: General. GROSS PATHOLOGY: This is a 76-year-old male who has had other primary arthrodeses of finger joints for deforming severe erosive hypertrophic osteoarthritis. He failed nonsurgical measures and had lost his ability to perform fine pinch and grasp. Intraoperatively, he had marked hypertrophic changes, especially dorsally off the base of the distal phalanx. There were grade 4 changes on both surfaces. He had [facility] PATIENT NAME: CADE ISLAS [address] [facility] [address] Edwards MEDICAL REC #: [id number] [place] [address] ADMIT DATE: DISCHARGE DATE: OPERATIVE REPORT ATTENDING PHY: Nurys Mueller DO lost alignment with erosion more on the ulnar side of the distal phalanx. Bone quality overall was good. IMPLANTS USED: [employer]hew 2.5-mm mini-cannulated screw, 30 mm in length. OPERATIVE REPORT: Informed consent was given prior to the procedure after explaining the risks and complications, including but not limited to: , infection, blood loss, neurovascular injury, persistent pain, nonunion, failed internal fixation and/or painful internal fixation requiring removal. Patient was taken to the operating room, placed supine on the operating table. General anesthesia was induced and maintained. Pre-tested, well-padded pneumatic tourniquet was applied to the upper left forearm. The skin of the left upper extremity was prepped and when dry, draped in a sterile fashion. A timeout procedure was conducted, identifying the patient, the intended operation and site. Anesthesia concerns, including fire risk and airway management were discussed. General risks of surgery, including allergies and medical conditions were reviewed. Prevention of infection by administration of prophylactic antibiotics and [facility] PATIENT NAME: CADE ISLAS [address] [facility] [address] Edwards MEDICAL REC #: [id number] [place] [address] ADMIT DATE: DISCHARGE DATE: OPERATIVE REPORT ATTENDING PHY: Nurys Mueller DO the arrival of the instruments in sterile condition was confirmed. The surgical team introduced themselves by name and were instructed to contact the surgeon through the course of the procedure should unusual events be observed and to pass on the timeout information to their relief, should they leave the room. The limb was elevated and exsanguinated with the Esmarch dressing. Tourniquet was inflated to 220 mmHg pressure. A longitudinal incision was planned and carried out over the distal third of the middle phalanx along its radial border and curved across the most proximal DIP extension crease. Full-thickness flap was elevated and held with 5-0 nylon suture. The extensor tendon was divided approximately a centimeter proximal to the joint. It was reflected distally off the osteophyte, which was then removed with a rongeur. The collateral ligaments were released. The joint was shot gunned open and the remaining articular cartilage and marginal osteophytes were removed from the distal phalanx and proximal phalanx. The wound was irrigated. A guidewire for the 2.5-mm cannulated screw was then passed in a central location in the distal two-thirds of the proximal phalanx. The pin was then taken out and this drill pin was used to drill from intraarticular to extraarticular [facility] PATIENT NAME: CADE ISLAS [address] Edwards MEDICAL REC #: [id number] [place] [address] ADMIT DATE: DISCHARGE DATE: OPERATIVE REPORT ATTENDING PHY: Nurys Mueller DO through the distal phalanx paralleling as close as possible to the dorsal cortex. We checked the alignment and position of the pin, which was redirected down the middle phalanx under fluoroscopy and we thought we had an acceptable center-center location. Then, passed the drill for the 2.5-mm screw over the guidepin and the distal cortex was contoured with the contouring cutting . The wound was irrigated and the joint surface was inspected and felt to be in good alignment. We then passed the 30-mm screw until it made good cortical contact with the distal phalanx and compressed the (more content not included)... Normal [facility] DHEA SULFATEon 05-10-2021 DHEA SULFATE 41.3 ug/dL Normal 20.8-226.4 [facility] Comment on above: Result Comment: Perf ormed At: [facility] [address] [id number] Stra Campa PhD [id number] Performed By: #### L 550.03613 #### [facility] [address] [place] [address] CMPon 05-07-2021 Albumin [Mass/Vol] 4.1 g/dL Normal 3.2-5.0 [facility] Comment on above: Performed By: #### L 550.59506 #### [facility] [address] [place], [place] [address] Albumin/Globulin [Mass ratio] 1.5 {ratio} Normal 0.8-2.0 [facility] Comment on above: Performed By: #### L 550.12432 #### [facility] [address] [place], [place] [address] ALK PHOS 138 U/L High 45-117 [facility] Comment on above: Performed By: #### L 550.82009 #### [facility] [address] [place] [address] ALT [Catalytic activity/Vol] 36 U/L Normal 13-61 [facility] Comment on above: Result Comment: RESU LTS MAY BE FALSELY DEPRESSED AFTER THE ADMINISTRATION OF SULFASALAZINE AND/OR SULFAPYRIDINE. Performed By: #### L 550.85802 #### [facility] [address] [place] [address] Anion gap [Moles/Vol] 10 mmol/L Normal 5-16 [facility] Comment on above: Performed By: #### L 550.56741 #### [facility] [address] [place], [place] [address] AST [Catalytic activity/Vol] 30 U/L Normal 8-34 [facility] Comment on above: Result Comment: RESU LTS MAY BE FALSELY DEPRESSED AFTER THE ADMINISTRATION OF SULFASALAZINE AND/OR SULFAPYRIDINE. Performed By: #### L 550.39042 #### [facility] [place] [address] BILI TOTAL 0.80 MG/DL Normal 0.2-1.0 [facility] Comment on above: Performed By: #### L 550.39355 #### [facility] [address] [place] [address] Calcium [Mass/Vol] 10.1 mg/dL Normal 8.5-10.5 [facility] Comment on above: Result Comment: NOTE NEW NORMAL RANGE DUE TO REAGENT CHANGE Performed By: #### L 550.00165 #### [facility] [address] [place] [address] Chloride [Moles/Vol] 102 mmol/L Normal 98-107 [facility] Comment on above: Performed By: #### L 550.27022 #### [facility] [address] [place] [address] CO2 [Moles/Vol] 27.0 mmol/L Normal 21-32 [facility] Comment on above: Performed By: #### L 550.35552 #### [facility] [place] [id number] Creatinine [Mass/Vol] 1.09 mg/dL Normal 0.5-1.4 [facility] Comment on above: Result Comment: NOTE NEW NORMAL RANGE DUE TO REAGENT CHANGE Patients receiving either N-Acetylcysteine (NAC) or Metamizole prior to venipuncture, may have falsely depressed results. Performed By: #### L 550.31156 #### [facility] [address] [place] [address] Globulin (S) [Mass/Vol] 2.8 g/dL Normal 2.2-4.2 [facility] Comment on above: Performed By: #### L 550.53830 #### [facility] [address] [place], [place] [address] Glucose [Mass/Vol] 130 mg/dL High 70-100 [facility] Comment on above: Result Comment: 70-1 00- Normal Fasting; 100-125 Impaired Fasting; greater than 126 on more than one result- Diabetes. ADA guidelines. Results may be falsely elevated after the administration of Sulfapyridine. Results may be falsely depressed after the administration of Sulfasalazine. Performed By: #### L 550.10522 #### [facility] [address] [place] [address] Potassium [Moles/Vol] 4.1 mmol/L Normal 3.5-5.1 [facility] Comment on above: Result Comment: Slig ht Hemolysis, Result may be affected. Performed By: #### L 550.79919 #### [facility] [place] [address] Protein [Mass/Vol] 6.9 g/dL Normal 6.0-8.5 [facility] Comment on above: Performed By: #### L 550.05204 #### [facility] [address] [place] [address] Sodium [Moles/Vol] 139 mmol/L Normal 136-145 [facility] Comment on above: Performed By: #### L 550.09532 #### [facility] [address] [place] [address] Urea nitrogen [Mass/Vol] 28 mg/dL High 7-26 [facility] Comment on above: Performed By: #### L 550.62274 #### [facility] [address] [place] [address] Urea nitrogen/Creatinine [Mass ratio] 26 mg/mg High 15-24 [facility] Comment on above: Performed By: #### L 550.35189 #### [facility] [address] [place] [address] GFR ESTon 05-07-2021 IF AMER Greater than 60 Normal [facility] Comment on above: Performed By: #### L 550.06496 #### [facility] [address] [place] [address] IF non-AFR AMER Greater than 60 Normal [facility] Comment on above: Performed By: #### L 550.35018 #### [facility] [address] [place] [address] HGB A1C GLYCOHBon 05-07-2021 HbA1c (Bld) [Mass fraction] 6.3 % High 4.3-6.0 [facility] Comment on above: Performed By: #### L 550.41168 #### [facility] [address] [place] [address] LIPIDon 05-07-2021 CHOL 129 MG/dL Normal 0-199 [facility] Comment on above: Performed By: #### L 550.47827 #### [facility] [address] [place] [address] # [phone] Cholesterol in HDL [Mass/Vol] 44 mg/dL Normal GREATER THAN 40 [facility] Comment on above: Result Comment: Marysol ents receiving Metamizole prior to venipuncture, may have falsely depressed results. Performed By: #### L 550.45816 #### [facility] [address] [place] [address] Cholesterol in LDL [Mass/Vol] 69 mg/dL Normal [facility] Comment on above: Result Comment: ___C HOLESTEROL/HDL RATIO RISK___ CHD RISK = Total CHOL LDL HDL (CHOL/HDL) Recommended <200 <130 >40 <3.4 Borderline 200-239 130-159 3.4-4.99 High >240 >160 >5.0 Performed By: #### L 550.94147 #### [facility] [address] [facility] [place] [address] Triglyceride [Mass/Vol] 81 mg/dL Normal 30-149 [facility] Comment on above: Result Comment: Marysol ents receiving either N-Acetylcysteine (NAC) or Metamizole prior to venipuncture, may have falsely depressed results. Performed By: #### L 550.34120 #### [facility] [address] [place] [address] MAGNESIUMon 05-07-2021 Magnesium [Mass/Vol] 2.3 mg/dL Normal 1.6-2.6 [facility] Comment on above: Performed By: #### L 550.23860 #### [facility] [address] [place] [address] TSHon 05-07-2021 TSH 1.588 UIU/ML Normal 0.358-3.74 0 [facility] Comment on above: Result Comment: 3rd generation ultra sensitive TSH Performed By: #### L 550.24245 #### [facility] [address] [place] [address]# [phone] UR MICROALB RDMon 05-07-2021 Creatinine [Mass/Vol] 116.60 mg/dL Normal 22.00- 328. 00 [facility] Comment on above: Performed By: #### L 650.62168 #### [facility] [address] [place] [address] U ALB/CRE RATIO 12.00 UG/MGCR Normal 0.00-30.00 [facility] Comment on above: Performed By: #### L 650.85770 #### [facility] [address] [place] [address] UR MICROALB RDM 15.0 MG/L Normal 0.0-19.0 [facility] Comment on above: Performed By: #### L 650.00907 #### [facility] [address] [place] [address] BMPon 04-04-2021 Anion gap [Moles/Vol] 5 mmol/L Normal 5-16 [facility] Comment on above: Performed By: #### L 300.19844 #### [facility] [address] [place] [address] Calcium [Mass/Vol] 10.0 mg/dL Normal 8.5-10.5 [facility] Comment on above: Result Comment: NOTE NEW NORMAL RANGE DUE TO REAGENT CHANGE Performed By: #### L 300.12226 #### [facility] [place] [address] Chloride [Moles/Vol] 102 mmol/L Normal 98-107 [facility] Comment on above: Performed By: #### L 300.38803 #### [facility] [address] [place] [address] CO2 [Moles/Vol] 29.0 mmol/L Normal 21-32 [facility] Comment on above: Performed By: #### L 300.92111 #### [facility] [address] [place] [address] Creatinine [Mass/Vol] 1.14 mg/dL Normal 0.5-1.4 [facility] Comment on above: Result Comment: NOTE NEW NORMAL RANGE DUE TO REAGENT CHANGE Patients receiving either N-Acetylcysteine (NAC) or Metamizole prior to venipuncture, may have falsely depressed results. Performed By: #### L 300.94223 #### [facility] [address] [place] [address] Glucose [Mass/Vol] 90 mg/dL Normal 70-100 [facility] Comment on above: Result Comment: 70-1 00- Normal Fasting; 100-125 Impaired Fasting; greater than 126 on more than one result- Diabetes. ADA guidelines. Results may be falsely elevated after the administration of Sulfapyridine. Results may be falsely depressed after the administration of Sulfasalazine. Performed By: #### L 300.36357 #### [facility] [place] [address] Potassium [Moles/Vol] 4.2 mmol/L Normal 3.5-5.1 [facility] Comment on above: Result Comment: Slig ht Hemolysis, Result may be affected. Performed By: #### L 300.98449 #### [facility] [address] [place] [address] Sodium [Moles/Vol] 136 mmol/L Normal 136-145 [facility] Comment on above: Performed By: #### L 300.99737 #### [facility] [address] [place], [place] [address] Urea nitrogen [Mass/Vol] 25 mg/dL Normal 7-26 [facility] Comment on above: Performed By: #### L 300.01095 #### [facility] [address] [place] [address] Urea nitrogen/Creatinine [Mass ratio] 22 mg/mg Normal 15-24 [facility] Comment on above: Performed By: #### L 300.94293 #### [facility] [address] [place] [address] GFR ESTon 04-04-2021 IF AMER Greater than 60 Normal [facility] Comment on above: Performed By: #### L 300.37863 #### [facility] [address] [place] [address] IF non-AFR AMER Greater than 60 Normal [facility] Comment on above: Performed By: #### L 300.17449 #### [facility] [address] [place] [address] HIP WITH OBL 2-3 VIEWS LEFTo n 03-03-2021 HIP WITH OBL 2-3 VIEWS LEFT EXAMINATION: HIP WITH OBL 2-3 VIEWS LEFT HISTORY: PAIN IN LEFT HIP . TECHNIQUE: HIP WITH OBL 2-3 VIEWS LEFT Laterality: Number of different views (projections): M: XB_1 COMPARISON: None. RESULT: No acute fracture or dislocation. Mild superior hip joint space narrowing, with subchondral sclerosis/cystic change of the acetabular roof. Small enthesophytes noted at the greater trochanter and ischial tuberosity. Partially visualized electronic device projecting over the left flank. IMPRESSION: Mild left hip osteoarthritis. This report was electronically signed by Doreen Arce MD 03/03/2021 4:41 PM Reported By: DOREEN ARCE MD Signed By: DOREEN ARCE MD Normal [facility] DHEA SULFATEon 01-27-2021 DHEA SULFATE 29.3 ug/dL Low 30.9-295.6 [facility] Comment on above: Result Comment: Perf ormed At: [facility] [address] [place], [place] [id number] Star Campa PhD [id number] Performed By: #### L 550.75838 #### [facility] [place] [id number] [place] [address] CMPon 01-14-2021 Albumin [Mass/Vol] 4.4 g/dL Normal 3.2-5.0 [facility] Comment on above: Performed By: #### L 550.17737 #### [facility] [address] [place] [address] Albumin/Globulin [Mass ratio] 1.6 {ratio} Normal 0.8-2.0 [facility] Comment on above: Performed By: #### L 550.94908 #### [facility] [address] [place] [address] ALK PHOS 138 U/L High 45-117 [facility] Comment on above: Performed By: #### L 550.93329 #### [facility] [address] [place] [address] ALT [Catalytic activity/Vol] 40 U/L Normal 13-61 [facility] Comment on above: Result Comment: RESU LTS MAY BE FALSELY DEPRESSED AFTER THE ADMINISTRATION OF SULFASALAZINE AND/OR SULFAPYRIDINE. Performed By: #### L 550.25729 #### [facility] [address] [place] [address] Anion gap [Moles/Vol] 9 mmol/L Normal 5-16 [facility] Comment on above: Performed By: #### L 550.53810 #### [facility] [place] [address] AST [Catalytic activity/Vol] 41 U/L High 8-34 [facility] Comment on above: Result Comment: RESU LTS MAY BE FALSELY DEPRESSED AFTER THE ADMINISTRATION OF SULFASALAZINE AND/OR SULFAPYRIDINE. Performed By: #### L 550.94142 #### [facility] [address] [place] [address] BILI TOTAL 1.00 MG/DL Normal 0.2-1.0 [facility] Comment on above: Performed By: #### L 550.21287 #### [facility] [address] [place] [address] Calcium [Mass/Vol] 10.0 mg/dL Normal 8.5-10.5 [facility] Comment on above: Result Comment: NOTE NEW NORMAL RANGE DUE TO REAGENT CHANGE Performed By: #### L 550.19786 #### [facility] [address] [place] [address] 41407 Chloride [Moles/Vol] 104 mmol/L Normal 98-107 [facility] Comment on above: Performed By: #### L 550.91392 #### [facility] [address] [place], [place] [address] CO2 [Moles/Vol] 28.0 mmol/L Normal 21-32 [facility] Comment on above: Performed By: #### L 550.24009 #### [facility] [address] [place] [address] 15270 Creatinine [Mass/Vol] 1.08 mg/dL Normal 0.5-1.4 [facility] Comment on above: Result Comment: NOTE NEW NORMAL RANGE DUE TO REAGENT CHANGE Patients receiving either N-Acetylcysteine (NAC) or Metamizole prior to venipuncture, may have falsely depressed results. Performed By: #### L 550.55310 #### [facility] [address] [place] [address] Globulin (S) [Mass/Vol] 2.8 g/dL Normal 2.2-4.2 [facility] Comment on above: Performed By: #### L 550.71642 #### [facility] [address] [place] [address] 99283 Glucose [Mass/Vol] 96 mg/dL Normal 70-100 [facility] Comment on above: Result Comment: 70-1 00- Normal Fasting; 100-125 Impaired Fasting; greater than 126 on more than one result- Diabetes. ADA guidelines. Results may be falsely elevated after the administration of Sulfapyridine. Results may be falsely depressed after the administration of Sulfasalazine. Performed By: #### L 550.76658 #### [facility] [address] [place] [address] 91150 Potassium [Moles/Vol] 4.2 mmol/L Normal 3.5-5.1 [facility] Comment on above: Result Comment: Slig ht Hemolysis, Result may be affected. Performed By: #### L 550.03505 #### [facility] [address] [place] [address]70 Protein [Mass/Vol] 7.2 g/dL Normal 6.0-8.5 [facility] Comment on above: Performed By: #### L 550.23085 #### [facility] [address] [place] [address] 00988 Sodium [Moles/Vol] 141 mmol/L Normal 136-145 [facility] Comment on above: Performed By: #### L 550.53686 #### [facility] [place] [address] Urea nitrogen [Mass/Vol] 24 mg/dL Normal 7-26 [facility] Comment on above: Performed By: #### L 550.26888 #### [facility] [address] [place] [address] Urea nitrogen/Creatinine [Mass ratio] 22 mg/mg Normal 15-24 [facility] Comment on above: Performed By: #### L 550.49024 #### [facility] [address] [place] [address] 84919 GFR ESTon 01-14-2021 IF AMER Greater than 60 Normal [facility] Comment on above: Performed By: #### L 550.73633 #### [facility] [address] [place] [address] 20310 IF non-AFR AMER Greater than 60 Normal [facility] Comment on above: Performed By: #### L 550.24108 #### [facility] [address] [place] [address] 99488 HGB A1C GLYCOHBon 01-14-2021 HbA1c (Bld) [Mass fraction] 5.9 % Normal 4.3-6.0 [facility] Comment on above: Performed By: #### L 300.07710 #### [facility] [address] [place] [address] 84774 FREE TESTOSTERon 12-04-2020 TEST FREE&WB % 8.0 % Low 9.0-46.0 [facility] Comment on above: Result Comment: This test was developed and its performance characteristics determined by [facility]. It has not been cleared or approved by the Food and Drug Administration. Performed By: #### L 550.74328 #### [facility] [address] [place] [address] TESTFREEWEAK 61.4 ng/dL Normal 40.0-250.0 [facility] Comment on above: Result Comment: Perf ormed At: [facility] [address] [place] [address] [id number] Star Campa PhD [id number] Performed At: [facility] [address] [place], [place] [id number] Kody Murphy MD [id number] Performed By: #### L 550.25592 #### [facility] [address] TOTAL TEST 767 ng/dL Normal 264-916 [facility] Comment on above: Result Comment: Adul t male reference interval is based on a population of healthy nonobese males (BMI <30) between 19 and 39 years old. Zia et.al. JCEM 2017,102;3564-5578. PMID: [id number]. Performed By: #### L 550.97481 #### [facility] [address] [address] FREE TESTOSTERon 12-01-2020 TESTOSTERO LCMS TNP Normal [facility] Comment on above: Performed By: #### L 550.82959 #### [facility] [address] [address] CMPon 11-18-2020 Albumin [Mass/Vol] 4.2 g/dL Normal 3.2-5.0 [facility] Comment on above: Performed By: #### L 500.53872, L500.97684 #### [facility] [address] [place] [address] 47019 Albumin/Globulin [Mass ratio] 1.4 {ratio} Normal 0.8-2.0 [facility] Comment on above: Performed By: #### L 500.95416, L500.75966 #### [facility] [place] [address] ALK PHOS 137 U/L High 45-117 [facility] Comment on above: Performed By: #### L 500.52125, L500.04864 #### [facility] [address] [place] [address] 60887 ALT [Catalytic activity/Vol] 56 U/L Normal 13-61 [facility] Comment on above: Result Comment: RESU LTS MAY BE FALSELY DEPRESSED AFTER THE ADMINISTRATION OF SULFASALAZINE AND/OR SULFAPYRIDINE. Performed By: #### L 500.82678, L500.10437 #### [facility] [address] [place] [address] Anion gap [Moles/Vol] 5 mmol/L Normal 5-16 [facility] Comment on above: Performed By: #### L 500.71723, L500.19087 #### [facility] [place] [address] AST [Catalytic activity/Vol] 48 U/L High 8-34 [facility] Comment on above: Result Comment: RESU LTS MAY BE FALSELY DEPRESSED AFTER THE ADMINISTRATION OF SULFASALAZINE AND/OR SULFAPYRIDINE. Performed By: #### L 500.43351, L500.97704 #### [facility] [address] [place] [address] BILI TOTAL 1.00 MG/DL Normal 0.2-1.0 [facility] Comment on above: Performed By: #### L 500.67434, L500.00538 #### [facility] [address] [place], [place] [address] Calcium [Mass/Vol] 9.6 mg/dL Normal 8.5-10.5 [facility] Comment on above: Result Comment: NOTE NEW NORMAL RANGE DUE TO REAGENT CHANGE Performed By: #### L 500.80730, L500.33719 #### [facility] [address] [place] [address] Chloride [Moles/Vol] 106 mmol/L Normal 98-107 [facility] Comment on above: Performed By: #### L 500.84259, L500.40248 #### [facility] [place] [address] CO2 [Moles/Vol] 30.0 mmol/L Normal 21-32 [facility] Comment on above: Performed By: #### L 500.23650, L500.45190 #### [facility] [address] [place], [place] [address] Creatinine [Mass/Vol] 1.25 mg/dL Normal 0.5-1.4 [facility] Comment on above: Result Comment: NOTE NEW NORMAL RANGE DUE TO REAGENT CHANGE Patients receiving either N-Acetylcysteine (NAC) or Metamizole prior to venipuncture, may have falsely depressed results. Performed By: #### L 500.40260, L500.14295 #### [facility] [address] [place] [address] Globulin (S) [Mass/Vol] 3.0 g/dL Normal 2.2-4.2 [facility] Comment on above: Performed By: #### L 500.69776, L500.98978 #### [facility] [address] [place] [address] Glucose [Mass/Vol] 109 mg/dL High 70-100 [facility] Comment on above: Result Comment: 70-1 00- Normal Fasting; 100-125 Impaired Fasting; greater than 126 on more than one result- Diabetes. ADA guidelines. Results may be falsely elevated after the administration of Sulfapyridine. Results may be falsely depressed after the administration of Sulfasalazine. Performed By: #### L 500.32668, L500.27838 #### [facility] [address] [place] [address] Potassium [Moles/Vol] 4.4 mmol/L Normal 3.5-5.1 [facility] Comment on above: Result Comment: Slig ht Hemolysis, Result may be affected. Performed By: #### L 500.00503, L500.25873 #### [facility] [address] [place] [address] 00049 Protein [Mass/Vol] 7.2 g/dL Normal 6.0-8.5 [facility] Comment on above: Performed By: #### L 500.43987, L500.58867 #### [facility] [address] [place] [address] 61465 Sodium [Moles/Vol] 141 mmol/L Normal 136-145 [facility] Comment on above: Performed By: #### L 500.80983, L500.70825 #### [facility] [address] [place], [place] [address] Urea nitrogen [Mass/Vol] 20 mg/dL Normal 7-26 [facility] Comment on above: Performed By: #### L 500.45130, L500.99590 #### [facility] [address] [place] [address] 92725 Urea nitrogen/Creatinine [Mass ratio] 16 mg/mg Normal 15-24 [facility] Comment on above: Performed By: #### L 500.82113, L500.96197 #### [facility] [address] [place] [address] GFR ESTon 11-18-2020 IF AMER Greater than 60 Normal [facility] Comment on above: Performed By: #### L 500.35841, L500.23949 #### [facility] [address] [place], [place] [address] IF non-AFR AMER 56 Normal [facility] Comment on above: Performed By: #### L 500.94846, L500.72407 #### [facility] [address] [place] [address] 48128 HGB A1C GLYCOHBon 11-18-2020 HbA1c (Bld) [Mass fraction] 6.2 % High 4.3-6.0 [facility] Comment on above: Performed By: #### L 550.31126 #### [facility] [address] [place], [place] [address] US ABDOMEN COMPLETEon 2020 US ABDOMEN COMPLETE ULTRASOUND ABDOMEN COMPLETE: Clinical Statement: Cirrhosis Comparison: Ultrasound 10/30/2019 FINDINGS: Sonographic assessment is limited by bowel gas and patient body habitus. The aorta, IVC, and iliac bifurcation are segmentally visualized, appearing normal in caliber. The visualized portions of the pancreatic head and proximal body are unremarkable. The distal pancreatic body and tail is obscured by bowel. The liver measures 18.1 cm in length. There is diffusely coarsened hepatic echotexture and increased echogenicity. The portal triads is obscured. No focal hepatic lesions identified. No intrahepatic biliary ductal dilation. No ascites. The gallbladder is normally distended. Echogenic material is seen within the gallbladder measuring up to 1.5 cm. No wall thickening, pericholecystic fluid, or other significant inflammatory findings. The common bile duct measures 1.8 mm which is within normal limits. Sonographic Riggs's sign was negative. The right and left kidney measure 11.8 cm and 11.4 cm in length, respectively. There is bilateral renal cortical thinning. No renal calculi, hydronephrosis, perinephric fluid, or suspicious cortical lesion identified. The spleen measures 12.6 cm with unremarkable echogenicity. IMPRESSION: No acute process or significant change from 10/30/2019. Borderline hepatomegaly with altered hepatic echotexture and echogenicity compatible with severe hepatic steatosis and/or chronic underlying hepatocellular process to include cirrhosis. Cholelithiasis without secondary sonographic evidence cholecystitis. Bilateral renal cortical thinning, similar to prior exam. Obscured distal pancreatic body and tail. Dictated by Biological Technical Officer: Kota Serrano MD Reviewed and Signed by: Luciano Flowers MD This report was electronically signed by Luciano Flowers MD 11/10/2020 10:30 AM Reported By: LUCIANO FLOWERS M.D. Signed By: LUCIANO FLOWERS M.D. [facility] Dwayne Nettles 11-08-2020 GI ------- Patient: CADE ISLAS SR SPECIMEN: [id number] Collection Date: 11/08/20 Received: 11/12/20 Status: DI Hawley DrThea: Nellie Rojas MD Ph# Othr. Dr.: Jessica aMrtinez DO Material for Examination: A ESOPHAGEAL BX @ 40 CM, R/O MACIAS'S PRE-OP DIAGNOSIS: CIRRHOSIS OF LIVER POST-OP DIAGNOSIS: NONE GIVEN SURGICAL PROCEDURE: NONE GIVEN SPECIMEN COMMENTS: RECEIVED FROM [facility], [address] [place] [address] 2 Yecenia SLIDES LABELED [id number] CADE ISLAS L1,L2 DIAGNOSIS A. Esophagus at 40 cm, biopsy: Junctional mucosa showing mild chronic inflammation. Negative for intestinal metaplasia or dysplasia. GROSS DESCRIPTION The specimen is grossed and processed at [facility] The following is their gross description: Received in formalin, labeled esophageal bx @ 40 cm, is a single irregular, soft, pink-mcmullen fragment of tissue measuring 0.1 x 0.1 cm. The specimen is entirely submitted in one cassette. MICROSCOPIC DESCRIPTION Two Yecenia stained slides reviewed. /pm 11/16/2020 COPIES TO: Jessica Martinez Zuo-Liang MD Signed Verified/Reviewed by CADE CALABRESE MD 11/16/20 This dictation was created using voice recognition software. Phonetic and/or minor grammatical errors may exist. [facility] NAME: CADE ISLAS SR Pathology and Laboratory Medicine UNIT#: [id number] LOC: [facility] Tipple Repairer: Arabella Gunderson M.D. ROOM/BED: [facility] : 47 AGE/SEX: 75/M ORD.Nellie Brooke MD END OF REPORT Normal [facility] AFP TMon 10-27-2020 AFP TM 1.7 ng/mL Normal 0.0-8.3 [facility] Comment on above: Result Comment: [facility] Electrochemiluminescence Immunoassay (ECLIA) Values obtained with different assay methods or kits cannot be used interchangeably. Results cannot be interpreted as absolute evidence of the presence or absence of malignant disease. This test is not interpretable in females. Performed At: [facility] [id number] Star Campa PhD [id number] Performed By: #### L 550.72770 #### [facility] [address] [place] [address] 10269 CBC W/DIFFon 10-26-2020 BASO ABS 0.00 K/CU MM Normal 0-0.2 [facility] Comment on above: Performed By: #### L 200.28125 #### [facility] [address] [place] [address] Basophils/100 WBC (Bld) 0.2 % Normal 0-2 [facility] Comment on above: Performed By: #### L 200.30657 #### [facility] [address] [place] [address] 88372 EOS ABS 0.10 K/CU MM Normal 0-0.5 [facility] Comment on above: Performed By: #### L 200.33911 #### [facility] [address] [place], [place] [address] Eosinophils/100 WBC (Bld) 1.4 % Normal 0-5 [facility] Comment on above: Performed By: #### L 200.58382 #### [facility] [address] [place] [address] Erythrocyte distribution width (RBC) [Ratio] 12.6 % Normal 11-14.5 [facility] Comment on above: Performed By: #### L 200.20192 #### [facility] [address] [place] [address] Hematocrit (Bld) [Volume fraction] 44.4 % Normal 41.0-53.0 [facility] Comment on above: Performed By: #### L 200.79256 #### [facility] [address] [place] [address] Hemoglobin (Bld) [Mass/Vol] 15.1 g/dL Normal 13.5-17.5 [facility] Comment on above: Performed By: #### L 200.56422 #### [facility] [address] [place] [address] IMMATR GRAN ABS 0.00 K/CU MM Normal Less than 2 [facility] Comment on above: Performed By: #### L 200.73400 #### [facility] [address] [place] [address] IMMATURE GRAN % 0.2 % Normal Less than 2 [facility] Comment on above: Performed By: #### L 200.65205 #### [facility] [address] [place] [address] LYMPH ABS 1.20 K/CU MM Normal 0.9-4.4 [facility] Comment on above: Performed By: #### L 200.61521 #### [facility] [address] [place] [address] Lymphocytes/100 WBC (Bld) 23.0 % Normal 20-40 [facility] Comment on above: Performed By: #### L 200.60960 #### [facility] [address] [place] [address] MCHC (RBC) [Mass/Vol] 34.0 g/dL Normal 32.0-36.0 [facility] Comment on above: Performed By: #### L 200.88177 #### [facility] [address] [place] [address] MCV (RBC) [Entitic vol] 92.3 fL Normal 80.0-99.0 [facility] Comment on above: Performed By: #### L 200.73532 #### [facility] [address] [place] [address] MONO ABS 0.50 K/CU MM Normal 0.1-1.1 [facility] Comment on above: Performed By: #### L 200.66490 #### [facility] [address] [place] [address] Monocytes/100 WBC (Bld) 10.2 % High 2-10 [facility] Comment on above: Performed By: #### L 200.85592 #### [facility] [address] [place] [address] NC/NC NORMOCYTIC Normal [facility] Comment on above: Performed By: #### L 200.64948 #### [facility] [address] [place] [address] NEUTROPHIL ABS 3.30 K/CU MM Normal 2.0-8.3 [facility] Comment on above: Performed By: #### L 200.19860 #### [facility] [address] [place] [address] Neutrophils/100 WBC (Bld) 65.0 % Normal 45-75 [facility] Comment on above: Performed By: #### L 200.82954 #### [facility] [address] [place] [address] Nucleated RBC/100 WBC (Bld) [Ratio] 0.0 % Normal Less than 1 [facility] Comment on above: Performed By: #### L 200.82097 #### [facility] [address] [place] [address]506 Platelet mean volume (Bld) [Entitic vol] 12.8 fL High 9.4-12.4 [facility] Comment on above: Performed By: #### L 200.71207 #### [facility] [address] [place] [address] PLT 69 K/CU MM Low 150-450 [facility] Comment on above: Result Comment: Accu racy questionable due to platelet clumping, actual platelet count may be higher than the reported value. Performed By: #### L 200.11584 #### [facility] [address] [place] [address] PLT EST UNABLE TO QUANTITATE Normal [facility] Comment on above: Performed By: #### L 200.26554 #### [facility] [address] [place] [address] RBC 4.81 M/CU MM Normal 4.50-6.00 [facility] Comment on above: Performed By: #### L 200.64031 #### [facility] [address] [place] [address] WBC 5.0 K/CUMM Normal 4.5-11.0 [facility] Comment on above: Performed By: #### L 200.71893 #### [facility] [address] [place], [place] [address] CMPon 10-26-2020 Albumin [Mass/Vol] 3.9 g/dL Normal 3.2-5.0 [facility] Comment on above: Performed By: #### L 300.63929 #### [facility] [address] [place] [address] Albumin/Globulin [Mass ratio] 1.3 {ratio} Normal 0.8-2.0 [facility] Comment on above: Performed By: #### L 300.28481 #### [facility] [address] [place] [address] ALK PHOS 120 U/L High 45-117 [facility] Comment on above: Performed By: #### L 300.73079 #### [facility] [address] [place] [address] ALT [Catalytic activity/Vol] 49 U/L Normal 13-61 [facility] Comment on above: Result Comment: RESU LTS MAY BE FALSELY DEPRESSED AFTER THE ADMINISTRATION OF SULFASALAZINE AND/OR SULFAPYRIDINE. Performed By: #### L 300.69498 #### [facility] [address] [place] [address] Anion gap [Moles/Vol] 5 mmol/L Normal 5-16 [facility] Comment on above: Performed By: #### L 300.35343 #### [facility] [place] [address] AST [Catalytic activity/Vol] 51 U/L High 8-34 [facility] Comment on above: Result Comment: RESU LTS MAY BE FALSELY DEPRESSED AFTER THE ADMINISTRATION OF SULFASALAZINE AND/OR SULFAPYRIDINE. Performed By: #### L 300.36652 #### [facility] [address] [place] [address] BILI TOTAL 1.50 MG/DL High 0.2-1.0 [facility] Comment on above: Performed By: #### L 300.83713 #### [facility] [address] [place] [address] Calcium [Mass/Vol] 9.8 mg/dL Normal 8.5-10.5 [facility] Comment on above: Result Comment: NOTE NEW NORMAL RANGE DUE TO REAGENT CHANGE Performed By: #### L 300.92370 #### [facility] [address] [place] [address] Chloride [Moles/Vol] 104 mmol/L Normal 98-107 [facility] Comment on above: Performed By: #### L 300.09745 #### [facility] [address] [place] [address] CO2 [Moles/Vol] 30.0 mmol/L Normal 21-32 [facility] Comment on above: Performed By: #### L 300.64433 #### [facility] [address] [place] [address] Creatinine [Mass/Vol] 1.18 mg/dL Normal 0.5-1.4 [facility] Comment on above: Result Comment: NOTE NEW NORMAL RANGE DUE TO REAGENT CHANGE Patients receiving either N-Acetylcysteine (NAC) or Metamizole prior to venipuncture, may have falsely depressed results. Performed By: #### L 300.46874 #### [facility] [address] [place] [address] Globulin (S) [Mass/Vol] 3.1 g/dL Normal 2.2-4.2 [facility] Comment on above: Performed By: #### L 300.55287 #### [facility] [address] [place] [address] Glucose [Mass/Vol] 94 mg/dL Normal 70-100 [facility] Comment on above: Result Comment: 70-1 00- Normal Fasting; 100-125 Impaired Fasting; greater than 126 on more than one result- Diabetes. ADA guidelines. Results may be falsely elevated after the administration of Sulfapyridine. Results may be falsely depressed after the administration of Sulfasalazine. Performed By: #### L 300.92624 #### [facility] [address] [place] [address] Potassium [Moles/Vol] 4.0 mmol/L Normal 3.5-5.1 [facility] Comment on above: Result Comment: Slig ht Hemolysis, Result may be affected. Performed By: #### L 300.48957 #### [facility] [address] [place] [address] Protein [Mass/Vol] 7.0 g/dL Normal 6.0-8.5 [facility] Comment on above: Performed By: #### L 300.86260 #### [facility] [place] [address] Sodium [Moles/Vol] 139 mmol/L Normal 136-145 [facility] Comment on above: Performed By: #### L 300.43196 #### [facility] [address] [place] [address] Urea nitrogen [Mass/Vol] 21 mg/dL Normal 7-26 [facility] Comment on above: Performed By: #### L 300.28677 #### [facility] [address] [place] [address] Urea nitrogen/Creatinine [Mass ratio] 18 mg/mg Normal 15-24 [facility] Comment on above: Performed By: #### L 300.61755 #### [facility] [address] [place] [address] 912[address] GFR ESTon 10-26-2020 IF AMER Greater than 60 Normal [facility] Comment on above: Performed By: #### L 550.92326 #### [facility] [facility] [place] [address] IF non-AFR AMER 60 Normal [facility] Comment on above: Performed By: #### L 550.37166 #### [facility] [place] [address] PTon 10-25-2020 INR Coag (PPP) [Relative time] 1.05 {INR} Normal 0.9-1.1 [facility] Comment on above: Result Comment: Nikunj mmended PT INR therapeutic range for senior care and prophylactic therapy is 2.0 - 3.0. For heart valve and shunt patients the range is 2.5 - 3.5. Performed By: #### L 300.34167 #### [facility] [address] [place] [address] PTS 11.2 SECONDS Normal 9.5-12.0 [facility] Comment on above: Performed By: #### L 300.52356 #### [facility] [address] [place] [address] FREE TESTOSTERon 08-31-2020 TEST FREE&WB % 5.5 % Low 9.0-46.0 [facility] Comment on above: Result Comment: This test was developed and its performance characteristics determined by [employer]. It has not been cleared or approved by the Food and Drug Administration. Performed By: #### L 550.75311 #### [facility] [address] [place] [address] TESTFREEWEAK 31.5 ng/dL Low 40.0-250.0 [facility] Comment on above: Result Comment: Perf ormed At: [facility] [address] [place], [place] [id number] Star Campa PhD [id number] Performed At: [facility] [id number] Kody Murphy MD [id number] Performed By: #### L 550.10484 #### [facility] [address] [place] [address] TOTAL TEST 573 ng/dL Normal 264-916 [facility] Comment on above: Result Comment: Adul t male reference interval is based on a population of healthy nonobese males (BMI <30) between 19 and 39 years old. Zia et.al. JCEM 2017,102;4118-9678. PMID: [id number]. Please note reference interval change Performed By: #### L 550.49507 #### [facility] [address] [place] [address] FREE TESTOSTERon 08-24-2020 TESTOSTERO LCMS TNP [facility] Comment on above: Performed By: #### L 550.83052 #### [facility] [address] [place] [address] GLUCOSE BLD STRIPon 07-06-19 18 Glucose mass conc 169 mg/dL High 65-110 [facility] Comment on above: Performed By: #### L POCGLUC ####[facility] [address] [place] [address] OPERATIVE REPORTon 8 OPERATIVE REPORT Name: CADE ISLASMR : [id number]: Eric Pacheco M.D.DATE OF SURGERY: 07/05/2017ANESTHESIA: General endotracheal anesthetic.1ST INSPECTOR TOYS:PREOP DIAGNOSIS: Neuropathic pain, placement of a neurostimulator done byanother surgeon with lead migration.POSTOP DIAGNOSIS: Neuropathic pain, placement of a neurostimulator done byanother surgeon with lead migration.OPERATION: Removal of prior neurostimulator of electrodes and battery withplacement of new battery and electrodes, MRI compatible percutaneous.IV FLUIDS: 800 mL.ESTIMATED BLOOD LOSS: 15 mL.URINE OUTPUT: Not measured.SPECIMENS: None.COMPLICATIONS: None.DISPOSITION: The patient taken to PACU in stable condition.OPERATIVE REPORT: Informed consent was obtained in the preoperative area.Risks and benefits of surgery were explained to the patient. He was broughtinto the operating room and sedated. [facility]. All pressure points well padded and secured. Fluoroscopy wasused to localize to the lead placement. The area was then prepped and drapedin the usual sterile fashion, and a time-out was performed. The priorincisions were infiltrated with Xylocaine with epinephrine. A 15 blade knifewas used to make the incision. Dissection was carried down using Boviecautery. The prior leads were seen and encountered and removed in entiretyand disconnected from the battery. The battery was then removed without anydifficulty after making incision with a 15 blade knife and dissection with theBovie cautery. Touhy needles were then used to pass into the epidural spaceand new leads were passed in a midline position posteriorly, spanning from the S T. [facility] ROSHAN,[id number] [place] [id number]: Eric Pacheco MDOPERATIVE REPORTtop of T9 with the lead in the T9-T10 disk space and another lead spanningfrom the bottom of T11 to the middle of L1 in a posterior midline position.We attempted to covering his areas of pain; however, he is veryconfused and was thrashing all over the bed. Therefore, I made a decision tore-sedate him, as I felt that his continued movement on the bed would be asafety issue to the patient. Therefore, the patient was re-sedated. Finalposition was reconfirmed on x-ray. The leads were secured to the fascia usinganchoring sutures and then tunneled to the existing battery pocket until thebattery impedance values were checked and found to be withinnormal limits and then the wounds were irrigated and closed in multiplelayers. REBECA Naik i/Simin/[id number]: 07/05/2017 11:38:41 E/S: Eric Pacheco MD07/13/17 0709Electronically Signed __[facility] CADE [id number] [place] [address] [id number]: Eric Pacheco MDOPERATIVE REPORT Normal [facility] CULTURE URINE W CCon 018 CULTURE URINE W CC [place]: MAIN URINE CULTURE NO GROWTH 2 DAYS Normal [facility] Comment on above: Performed By: #### M URINE ####[place] [address] TYPE AND SCREENon 06-30-2017 ANTIBODY SCREEN Negative Normal [facility] Comment on above: Order Comment: Stanislavu s: MAIN Performed By: #### B TS ####[facility] [address] [place] [address] BLOOD TYPE Positive Normal [facility] Comment on above: Order Comment: Campu s: MAIN Result Comment: Surg david date 07/05/17. Specimen expires 07/07/17. Performed By: #### B TS ####[facility] [address] [place] [address] BASIC METABOLIC PANELon Anion gap 10 mmol/L Normal -18 [facility] Comment on above: Order Comment: Campu s: MAIN Performed By: #### L BMP, LGFRP ####[facility] Ynaq[address]rbvq[address] [place] [address] Calcium 10.0 mg/dL Normal 8.6-10.3 [facility] Comment on above: Order Comment: Campu s: MAIN Performed By: #### L BMP, LGFRP ####[facility] F[address]af[address]bab[address]28[address] [place] [address] Chloride 100 mmol/L Normal 98-107 [facility] Comment on above: Order Comment: Campu s: MAIN Performed By: #### L BMP, LGFRP ####[facility] Lalceunkvd[address] [place] [address] CO2 28 mmol/L Normal 21-32 [facility] Comment on above: Order Comment: Campu s: MAIN Performed By: #### L BMP, LGFRP ####[facility] Skkjxlwdtm61570 [place] [address] Creatinine 1.77 mg/dL High 0.5-1.3 [facility] Comment on above: Order Comment: Stephanie s: MAIN Performed By: #### L BMP, LGFRP ####[facility] [address]ob[address]elkq[address]168 [place] [address] Glucose mass conc 139 mg/dL High 74-99 [facility] Comment on above: Order Comment: Stephanie s: MAIN Performed By: #### L BMP, LGFRP ####[facility] [address] [place] [address] Potassium molar conc 4.4 mmol/L Normal 3.5-5.3 [facility] Comment on above: Order Comment: Stephanie s: MAIN Performed By: #### L BMP, LGFRP ####[facility] [address] [place] [address] Sodium 134 mmol/L Low 136-145 [facility] Comment on above: Order Comment: Stephanie s: MAIN Performed By: #### L BMP, LGFRP ####[facility] [address] [place] [address] Urea nitrogen 37 mg/dL High 6-23 [facility] Comment on above: Order Comment: Stephanie s: MAIN Performed By: #### L BMP, LGFRP ####[facility] [address] [place] [address] CBC PLATELET AUTO DIFFon BASO ABS 0.03 K/uL Normal 0-0.20 [facility] Comment on above: Order Comment: Stephanie s: MAIN Performed By: #### L CBCD ####[facility] B[address]amlunmb[address]991 [place] [address] Basophils/100 WBC Auto (Bld) 0.4 % Normal [facility] Comment on above: Order Comment: Stephanie s: MAIN Performed By: #### L CBCD ####[facility] Ntyyxckgwx29901 [place] [address] EOS ABS 0.08 K/uL Low 0.10-0.30 [facility] Comment on above: Order Comment: Stephanie s: MAIN Performed By: #### L CBCD ####[facility] Vavzcgmzcl[address] [place] [address] Eosinophils/100 leukocytes 1.0 % Normal [facility] Comment on above: Order Comment: Campu s: MAIN Performed By: #### L CBCD ####[facility] W[address]ov[address]sxn11045 [place] [address] Erythrocyte distribution width Auto Ratio (RBC) 11.9 % Normal 11.5-14.5 [facility] Comment on above: Order Comment: Campu s: MAIN Performed By: #### L CBCD ####[facility] [address] [place] [address] Erythrocytes (RBC) 4.78 10*6/uL Normal 4.0-6.0 [facility] Comment on above: Order Comment: Campu s: MAIN Performed By: #### L CBCD ####[facility] [place] [address] Erythrocytes (RBC) 0.00 10*6/uL Normal [facility] Comment on above: Order Comment: Campu s: MAIN Performed By: #### L CBCD ####[facility] [address] [place] [address] Hematocrit (HCT) 43.8 % Normal 39.0-55.0 [facility] Comment on above: Order Comment: Campu s: MAIN Performed By: #### L CBCD ####[facility] [address] [place] [address] Hemoglobin mass conc (Bld) 15.1 g/dL Normal 14.0-16.5 [facility] Comment on above: Order Comment: Campu s: MAIN Performed By: #### L CBCD ####[facility] [address] [place] [address] IG % 0.4 % Normal [facility] Comment on above: Order Comment: Campu s: MAIN Performed By: #### L CBCD ####[facility] Luotmdeotj[address] [place] [address] IG ABS 0.03 K/uL Normal [facility] Comment on above: Order Comment: Campu s: MAIN Performed By: #### L CBCD ####[facility] [place] [address] Lymphocytes 1.64 10*3/uL Normal 1.2-4.0 [facility] Comment on above: Order Comment: Campu s: MAIN Performed By: #### L CBCD ####[facility] Xnpbrleudg89902 [place] [address] Lymphocytes/100 leukocytes 19.8 % Normal [facility] Comment on above: Order Comment: Campu s: MAIN Performed By: #### L CBCD ####[facility] [address] [place], [place] [address] MCH 31.6 pg Normal 25.4-34.6 [facility] Comment on above: Order Comment: Campu s: MAIN Performed By: #### L CBCD ####[facility] [address] [place], [place] [address] MCHC mass conc (RBC) 34.5 g/dL Normal 30.0-36.0 [facility] Comment on above: Order Comment: Campu s: MAIN Performed By: #### L CBCD ####[facility] [address] [place] [address] MCV 91.6 fL Normal 79.0-98.0 [facility] Comment on above: Order Comment: Campu s: MAIN Performed By: #### L CBCD ####[facility] [address] [place] [address] MONO ABS 0.98 K/uL Normal 0-1.00 [facility] Comment on above: Order Comment: Campu s: MAIN Performed By: #### L CBCD ####[facility] [address] [place] [address] Monocytes/100 leukocytes 11.9 % Normal [facility] Comment on above: Order Comment: Campu s: MAIN Performed By: #### L CBCD ####[facility] Cwxcoapxpx79396 [place] [address] NEUT ABS 5.51 K/uL Normal 1.9-8.0 [facility] Comment on above: Order Comment: Campu s: MAIN Performed By: #### L CBCD ####[facility] Tzktfcqiqa00991 [place] [address] Neutrophils/100 WBC Auto (Bld) 66.5 % Normal [facility] Comment on above: Order Comment: Campu s: MAIN Performed By: #### L CBCD ####[facility] Oy[address]eyfcmq62498 [place] [address] NRBC % 0.0 /100 WBC Normal 0 [facility] Comment on above: Order Comment: Stephanie s: MAIN Performed By: #### L CBCD ####[facility] Cbjynudasd71194 [place] [address] Platelet mean volume (PMV) 11.3 fL Normal 8.4-11.9 [facility] Comment on above: Order Comment: Stanislavdanya s: MAIN Performed By: #### L CBCD ####[facility] Xcubwuuazc73916 [place] [address] Platelets 111 10*3/uL Low 140-440 [facility] Comment on above: Order Comment: Stephanie s: MAIN Performed By: #### L CBCD ####[facility] Nrhbmwrvwf72014 [place] [address] WBC (Leukocytes) 8.3 10*3/uL Normal 3.9-11.0 [facility] Comment on above: Order Comment: Stephanie s: MAIN Performed By: #### L CBCD ####[facility] Rxrrqogqeg88729 [place] [address] EKGon 06-29-2017 EKG Acquired on 06/30/19 18 1317Vent. Rate : 090 BPM Atrial Rate : 090 BPMP-R Int : 178 ms QRS Dur : 088 msQT Int : 344 ms P-R-T Axes : 049 129 026 degreesQTc Int : 420 msNormal sinus rhythmLeft posterior fascicular blockAbnormal ECGNo previous ECGs availableConfirmed by George AVINA M.D. ([id number]) on 07/02/2017 8:46:25 PMReferred By: Signed by:George AVINA M.D.[id number] /S:Electronically Signed [facility] ACDE [id number] [place] [address] [id number] Pacheco REPORT Normal [facility] GLOMERULAR FILTRATION RATE E STon 06-29-2017 eGFR (non-black) 38 mL/min/{1.73_m2} Low > 60 [facility] Comment on above: Order Comment: Stephanie swift: MAIN Performed By: #### L BMP, LGFRP ####[facility] Xoyxahjsrp81810 [place] [address] IF AMER 44 mL/MIN Low > 60 [facility] Comment on above: Order Comment: Stephanie swift: MAIN Result Comment: Effe ctive 08/19/14:CKD-EPI equation / based on IDMS traceable creatinine.Continue to use the CREAT CLR-DOSE (Cockgroft-Gault)value for determining medication dose. Performed By: #### L BMP, LGFRP ####[facility] Txx[address]xcmjc[address]35 [place] [address] History and Physical Tegan 0 06-29-2017 History and Physical PAT [facility] Pt Name: JOVI ISLAS [facility] MR # [id number] [address] : 47* * * * * * * * History and Physical PAT * * * * * * * *History of Present IllnessDate of Ykxojcn50/06/18ource of InformationPatientHPIPatien cat has had burning pain and numbness in his feet for the past 5 years. He wasdiagnosed with small fiber neuropathy. He underwent spinal stimulator placement 3 yearsago. He has never received any relief. Multiple attempts at adjusting the stimulator havebeen unsuccessful. He denies bowel or bladder incontinence. He is now for stimulatorrevisionPROBLEM LISTProblem ListMedical ProblemsGERD (gastroesophageal reflux disease)HTN (hypertension)Hx of renal calculiHypothyroidObstructi ve sleep apnea on CPAPOsteoarthritisSmall fiber neuropathySurgical ProblemsHx of colonoscopyHx of esophagogastroduodenoscopyH x of hand surgeryHx of shoulder surgerySocial History ProblemsDoes not drink alcoholNo illicit drug useNonsmokerFamily HistoryRelation not specified for:Adverse response to anesthesia in fatherFH: HTN (hypertension)FH: Parkinson's diseaseAllergies/Home MedicationsAllergiesCoded Allergies:NO KNOWN ALLERGENS (06/29/17)Home Meds ReviewedI have reviewed the patient's Home Medication List.Home Medication List may have been reported by sources other than providers caring for thepatient at the time this document was created. Information may not be all inclusive.Reconcile MedicationsAmitriptyline HCl *(Elavil *) 100 MG TABLET 100 MG PO QHS, Ref 0(Reported)Entered as Reported by MEAGAN MENARD on 06/29/17 1423Last Action: No Recorded ActionCholecalciferol *(Vitamin D3 *) 1,000 UNIT TABLET 2,000 UNIT PO BID, Ref 0(Reported)Entered as Reported by MEAGAN MENARD on 06/29/17 1422Last Action: No Recorded ActionFluticasone/Vilantero l 100-25mcg MDI(Breo Ellipta 100-25mcg MDI Inh) 1 PUFF BLST.W.DEV 1 EACH INH DAILY, Ref 0(Reported)Entered as Reported by MEAGAN MENARD on 06/29/17 1423Last Action: No Recorded ActionLevothyroxine Sodium *(Synthroid *) 50 MCG TABLET 50 MCG PO DAILY@6AM, Ref 0(Reported)Entered as Reported by MEAGAN MENARD on 06/29/17 1422Last Action: No Recorded ActionMetformin HCl *(Glucophage *) 500 MG TABLET 500 MG PO BID, Ref 0(Reported)Entered as Reported by MEAGAN MENARD on 06/29/17 1421Last Action: No Recorded ActionRanitidine HCl *(Zantac *) 300 MG TABLET 300 MG PO DAILY, Ref 0(Reported)Entered as Reported by MEAGAN MENARD on 06/29/17 1423Last Action: No Recorded ActionSpironolactone(Aldact one) 25 MG TABLET 12.5 MG PO DAILY, Ref 0(Reported)Entered as Reported by MEAGAN MENARD on 06/29/17 1420Last Action: No Recorded ActionVALSARTAN/HYDROCHLORO THIAZIDE 320-25mg*(DIOVAN HCT 320-25mg*) 1 EACH TABLET 1 EACH PO DAILY@12N, Ref 0(Reported)Entered as Reported by MEAGAN MENARD on 06/29/17 1419Last Action: No Recorded ActionReview of SystemsReview of SystemsConstitutionalNEGATI VE: Fever, Chills, Sweaty, Weakness, Weight Loss, Recent Illness.EENTPOSITIVE: Vision Problems (glasses). NEGATIVE: Vision Changes, Sore Throat, DentalProblems, Nasal Congestion, Nasal Drainage, Hearing Loss, Ear Pain, Tinnitus.CVSNEGATIVE: Chest Pain, Palpitations, Shortness of Breath, Dizziness.PulmonaryNEGATIVE : Orthopnea, Dyspnea on Exertion, Hemoptysis, Shortness of Breath, Cough,Pleuritic Pain, Wheezing, Asthma, COPD.GINEGATIVE: Abdominal Pain, Nausea, Vomiting, Diarrhea, Black Stools, Bloody Stools,Hematemesis, Constipation, Tenesmus.GUNEGATIVE: Problems Urinating, Painful Urination, Hematuria.Muscle/LymphNEGAT GALEN: Extremity Pain, Calf Pain, Leg Pain, Neck Pain, Back Pain, Joint Pain, AnkleSwelling, Leg Swelling, Swollen Glands.SkinNEGATIVE: Rash, Lesions.NeuroNEGATIVE: Headache, Fainting, Dizziness, Loss of Sensation, Weakness, Difficulty Walking,Difficulty with Speech.PsychNEGATIVE: Confusion, Anxiety, Depression, Hallucinations.EndocrineNEG ATIVE: Weight Loss, Weight Gain, Poor Wound Healing, Neuropathy.Postop Anesthesia ProblemsNoneROS CommentsPt is able to climb a flight of stairs without CP or SOBPhysical ExamVital SignsTemp (C)66Kxgil22Hkgbmqvgfikw15K lood Muppnmeu320/65Pulse-Ox%96He ight - Xite6Tmpxrh7Fqjakv - Jk513WrwjojplxmVarxlqk AppearanceWell Developed/Nourished, Alert, Oriented X 3, Cooperative.HEENTHead Atraumatic, Normocephalic, PERRL, Hearing grossly normal, Mucosa Moist, PatentAirway.NeckSupple, Non tender, Without JVD, Without Thyromegaly.CardiovascularR ate WNL, Rhythm regular.RespiratoryBilatera lly Clear, No Respiratory Distress.NeuroSpeech Clear, Moves all extremities.AbdomenBowel Sounds Present, Abdomen soft, Non-Tender, No distention.ExtremityNo Pedal Edema.Assessment and Plan (PAT)Assessment and PlanAssessment and PlanPatient is a 72-year-old male for percutaneous neurostimulator revision and battery changeon 07/05/2017. EKG, BMP, CBC, type and screen, UA/CANDS today. EKG revealed left posteriorfascicular block. We'll get preop risk assessment from Dr. Gonzales. Patient to see today.Report Date 06/29/17Electronically Signed Esig Date Esig Amanda Nina 06/29/17 1432 Normal [facility] URINALYSIS COMPLETEon 2017 Bilirubin (total) Negative Normal NEGATIVE [facility] Comment on above: Order Comment: Stanislavu s: MAIN Performed By: #### L UA ####[facility] Pkpjkaozvf25802 [place] [address] BLOOD Negative Normal NEGATIVE [facility] Comment on above: Order Comment: Campu s: MAIN Performed By: #### L UA ####[facility] Niadgsuycj62193 [place] [address] Glucose mass conc 50 mg/dL Critically abnormal NEGATIVE [facility] Comment on above: Order Comment: Campu s: MAIN Performed By: #### L UA ####[facility] Pwguweqfpy75171 [place] [address] KETONE Negative Normal NEGATIVE [facility] Comment on above: Order Comment: Campu s: MAIN Performed By: #### L UA ####[facility] Umuavnchfw97967 [place] [address] LEUK ESTERASE Negative Normal NEGATIVE [facility] Comment on above: Order Comment: Campu s: MAIN Performed By: #### L UA ####[facility] Gammouqbrf24172 [place] [address] pH of blood 5.0 [pH] Normal 5.0-9.0 [facility] Comment on above: Order Comment: Campu s: MAIN Performed By: #### L UA ####[facility] Whrrsahhao44320 [place] [address] Protein Negative Normal NEGATIVE [facility] Comment on above: Order Comment: Campu s: MAIN Performed By: #### L UA ####[facility] Xflvjryylo26164 [place] [address] SPEC GRAV 1.012 Normal 1.005-1.03 0 [facility] Comment on above: Order Comment: Campu s: MAIN Performed By: #### L UA ####[facility] Cpjggpbiyp98219 [place] [address] Urine, appearance CLOUDY Normal CLEAR [facility] Comment on above: Order Comment: Campu s: MAIN Performed By: #### L UA ####[facility] Rwbebmpkes90810 [place] [address] Urine, color Billie Normal YELLOW [facility] Comment on above: Order Comment: Campu s: MAIN Performed By: #### L UA ####[facility] Lqpsiapnpi32986 [place] [address] Urine, nitrite presence Negative Normal NEGATIVE [facility] Comment on above: Order Comment: Campu s: MAIN Performed By: #### L UA ####[facility] Kzehzygxdf54398 [place] [address] UROBIL Negative Normal NEGATIVE [facility] Comment on above: Order Comment: Campu s: MAIN Performed By: #### L UA ####[facility] Xwulgzbffs12799 [place] [address] Vital Signs Date Time Vital Sign Value Performing Clinician Facility 10-13-2024 11:05-0400 Diastolic blood pressure 70 mm[Hg] Dr. Sunny Estevez MD Work Phone: [facility] 10-13-2024 11:05-0400 Heart rate 61 /min Dr. Sunny Estevez MD Work Phone: [facility] 10-13-2024 11:05-0400 Respiratory rate 16 /min Dr. Sunny Estevez MD Work Phone: [facility] 10-13-2024 11:05-0400 SaO2% (BldA) [Mass fraction] 98 % Dr. Sunny Estevez MD Work Phone: [facility] 10-13-2024 11:05-0400 Systolic blood pressure 111 mm[Hg] Dr. Sunny Estevez MD Work Phone: [facility] 10-13-2024 10:59-0400 Body temperature 36 [degF] Dr. Sunny Estevez MD Work Phone: [facility] 10-13-2024 10:14-0400 Body height 172.[address] Sunny Estevez MD Work Phone: [facility] 10-13-2024 10:14-0400 Body mass index (BMI) [Ratio] 33.7 kg/m2 Dr. Sunny Estevez MD Work Phone: [facility] 10-13-2024 10:14-0400 Body weight 100.[address] Sunny Estevez MD Work Phone: [facility] 10-07-2024 11:21-0400 Body height 172.7 cm Avtar Babin MD Work Phone: [facility] 10-07-2024 11:21-0400 Body mass index (BMI) [Ratio] 31.17 kg/m2 Avtar Babin MD Work Phone: [facility] 10-07-2024 11:21-0400 Body weight 92.99 kg Avtar Babin MD Work Phone: [facility] 10-07-2024 11:21-0400 Diastolic blood pressure 67 mm[Hg] Avtar Babin MD Work Phone: [facility] 10-07-2024 11:21-0400 Heart rate 86 /min Avtar Babin MD Work Phone: [facility] 10-07-2024 11:21-0400 Systolic blood pressure 107 mm[Hg] Avtar Babin MD Work Phone: [facility] 07-15-2024 10:57-0400 Body height 172.7 cm Brunilda Cruz APRN.EPIC AMBULATORY ANALYST Work Phone: [facility] 07-15-2024 10:57-0400 Body mass index (BMI) [Ratio] 32.54 kg/m2 Brunilda Cruz TICKET SORTER.EPIC AMBULATORY ANALYST Work Phone: [facility] 07-15-2024 10:57-0400 Body weight 97.07 kg Brunilda Cruz TICKET SORTER.EPIC AMBULATORY ANALYST Work Phone: [facility] 07-15-2024 10:57-0400 Diastolic blood pressure 76 mm[Hg] Brunilda Cruz TICKET SORTER.EPIC AMBULATORY ANALYST Work Phone: [facility] 07-15-2024 10:57-0400 Heart rate 72 /min Brunilda Cruz TICKET SORTER.EPIC AMBULATORY ANALYST Work Phone: [facility] 07-15-2024 10:57-0400 Systolic blood pressure 112 mm[Hg] Brunilda Cruz TICKET SORTER.EPIC AMBULATORY ANALYST Work Phone: [facility] 04-17-2024 07:34-0500 Body height 172.7 cm Aric Reji DO Work Phone: [facility] 04-17-2024 07:34-0500 Body mass index (BMI) [Ratio] 32.23 kg/m2 Aric Reji DO Work Phone: [facility] 04-17-2024 07:34-0500 Body weight 96.16 kg Aric Reji DO Work Phone: [facility] 04-17-2024 07:34-0500 Diastolic blood pressure 86 mm[Hg] Aric Reji DO Work Phone: [facility] 04-17-2024 07:34-0500 Heart rate 67 /min Aric Reji DO Work Phone: [facility] [place] 04-17-2024 07:34-0500 Systolic blood pressure 141 mm[Hg] Aric Reji DO Work Phone: [employer] 03-10-2024 14:30-0500 Heart rate 69 /min Aric Reji DO Work Phone: [facility] [employer] 03-10-2024 14:30-0500 SaO2% (BldA) [Mass fraction] 98 % Aric Reji DO Work Phone: [facility] 03-10-2024 14:00-0500 Diastolic blood pressure 84 mm[Hg] Aric Tylers DO Work Phone: [facility] [employer] 03-10-2024 14:00-0500 Systolic blood pressure 140 mm[Hg] Aric Reji DO Work Phone: [facility] 03-10-2024 13:45-0500 Respiratory rate 18 /min Aric Tylres DO Work Phone: [facility] 03-10-2024 12:29-0500 Body temperature 98.01 [degF] Aric Tylers DO Work Phone: [facility] [employer] 03-10-2024 05:51-0500 Body height 172.7 cm Aric Reji DO Work Phone: [facility] 03-10-2024 05:51-0500 Body mass index (BMI) [Ratio] 32.23 kg/m2 Aric Reji DO Work Phone: [facility] [employer] 03-10-2024 05:51-0500 Body weight 96.16 kg Aric Reji DO Work Phone: [facility] [employer] 01-30-2024 11:11-0500 Body height 172.7 cm Aric Reji DO Work Phone: [facility] [employer] 01-30-2024 11:11-0500 Body mass index (BMI) [Ratio] 30.41 kg/m2 Aric Reji DO Work Phone: [facility] 01-30-2024 11:11-0500 Body weight 90.72 kg Aric Reji DO Work Phone: [facility] 01-07-2024 10:15-0400 Body height 172.7 cm Brunilda Cruz TICKET SORTER.EPIC AMBULATORY ANALYST Work Phone: [facility] 01-07-2024 10:15-0400 Body mass index (BMI) [Ratio] 31.63 kg/m2 Brunilda Cruz APRN.EPIC AMBULATORY ANALYST Work Phone: [facility] 01-07-2024 10:15-0400 Body weight 94.35 kg Brunilda Cruz TICKET SORTER.EPIC AMBULATORY ANALYST Work Phone: [facility] 01-07-2024 10:15-0400 Diastolic blood pressure 72 mm[Hg] Brunilda Cruz TICKET SORTER.EPIC AMBULATORY ANALYST Work Phone: [facility] 01-07-2024 10:15-0400 Heart rate 60 /min Brunilda Cruz TICKET SORTER.EPIC AMBULATORY ANALYST Work Phone: [facility] 01-07-2024 10:15-0400 Systolic blood pressure 112 mm[Hg] Brunilda Cruz TICKET SORTER.EPIC AMBULATORY ANALYST Work Phone: [facility] 01-02-2024 16:05-0400 Diastolic blood pressure 77 mm[Hg] Aric Reji DO Work Phone: [facility] 01-02-2024 16:05-0400 Heart rate 80 /min Aric Reji DO Work Phone: [facility] [place] 01-02-2024 16:05-0400 Systolic blood pressure 137 mm[Hg] Aric Reji DO Work Phone: [facility] [place] 01-02-2024 16:01-0400 Body height 172.7 cm Aric Reji DO Work Phone: [facility] [place] 01-02-2024 16:01-0400 Body mass index (BMI) [Ratio] 30.41 kg/m2 Aric Reji DO Work Phone: [facility] 01-02-2024 16:01-0400 Body weight 90.72 kg Aric Reji DO Work Phone: [facility] [employer] 11-14-2023 13:29-0400 Body height 172.7 cm Avtar Babin MD Work Phone: [facility] 11-14-2023 13:29-0400 Body mass index (BMI) [Ratio] 30.41 kg/m2 Avtar Babin MD Work Phone: [facility] [employer] 11-14-2023 13:29-0400 Body weight 90.72 kg Avtar Babin MD Work Phone: [facility] 11-14-2023 13:29-0400 Diastolic blood pressure 90 mm[Hg] Avtar Babin MD Work Phone: [facility] 11-14-2023 13:29-0400 Heart rate 79 /min Avtar Babin MD Work Phone: [facility] 11-14-2023 13:29-0400 Systolic blood pressure 147 mm[Hg] Avtar Babin MD Work Phone: [facility] 08-14-2023 11:24-0400 Body height 172.7 cm Avtar Babin MD Work Phone: [facility] 08-14-2023 11:24-0400 Body mass index (BMI) [Ratio] 30.41 kg/m2 Avtar Babin MD Work Phone: [facility] 08-14-2023 11:24-0400 Body weight 90.72 kg Avtar Babin MD Work Phone: [facility] 08-14-2023 11:24-0400 Diastolic blood pressure 69 mm[Hg] Avtar Babin MD Work Phone: [facility] 08-14-2023 11:24-0400 Heart rate 67 /min Avtar Babin MD Work Phone: [facility] 08-14-2023 11:24-0400 Systolic blood pressure 130 mm[Hg] Avtar Babin MD Work Phone: [facility] 07-10-2023 08:00-0400 Body height 172.7 cm Avtar Babin MD Work Phone: [facility] 07-10-2023 08:00-0400 Body mass index (BMI) [Ratio] 30.11 kg/m2 Avtar Babin MD Work Phone: [facility] 07-10-2023 08:00-0400 Body weight 89.81 kg Avtar Babin MD Work Phone: [facility] 07-10-2023 08:00-0400 Diastolic blood pressure 63 mm[Hg] Avtar Babin MD Work Phone: [facility] 07-10-2023 08:00-0400 Heart rate 70 /min Avtar Babin MD Work Phone: [facility] 07-10-2023 08:00-0400 Systolic blood pressure 111 mm[Hg] Avtar Babin MD Work Phone: [facility] 07-05-2023 07:49-0400 Body temperature 97.39 [degF] Jonna Day MD Work Phone: [facility] 07-05-2023 07:49-0400 Diastolic blood pressure 83 mm[Hg] Jonna Day MD Work Phone: [facility] 07-05-2023 07:49-0400 Heart rate 79 /min Jonna Day MD Work Phone: [facility] 07-05-2023 07:49-0400 Respiratory rate 18 /min Jonna Day MD Work Phone: [facility] 07-05-2023 07:49-0400 SaO2% (BldA) [Mass fraction] 96 % Jonna Day MD Work Phone: [facility] 07-05-2023 07:49-0400 Systolic blood pressure 142 mm[Hg] Jonna Day MD Work Phone: [facility] 07-04-2023 06:00-0400 Body mass index (BMI) [Ratio] 30.18 kg/m2 Jonna Day MD Work Phone: [facility] 07-04-2023 06:00-0400 Body weight 90.04 kg Jonna Day MD Work Phone: [facility] 06-30-2023 06:06-0400 Body height 172.7 cm Jonna Day MD Work Phone: [facility] 05-14-2023 11:19-0500 Diastolic blood pressure 72 mm[Hg] Nurse 220 [facility] 05-14-2023 11:19-0500 Heart rate 72 /min Nurse 220 [facility] 05-14-2023 11:19-0500 Systolic blood pressure 122 mm[Hg] Nurse 220 [facility] 05-10-2023 13:01-0500 Body height 172.7 cm Avtar Babin MD Work Phone: [facility] 05-10-2023 13:01-0500 Body mass index (BMI) [Ratio] 31.02 kg/m2 Avtar Babin MD Work Phone: [facility] 05-10-2023 13:01-0500 Body weight 92.53 kg Avtar Babin MD Work Phone: [facility] 05-01-2023 07:51-0500 Body height 172.7 cm Uro Schedule [facility] 05-01-2023 07:51-0500 Body mass index (BMI) [Ratio] 31.17 kg/m2 Uro Schedule [facility] 05-01-2023 07:51-0500 Body weight 92.99 kg Uro Schedule [facility] 04-30-2023 11:26-0500 Body temperature 136.99 [degF] Nurse 220 [facility] 04-30-2023 11:26-0500 Diastolic blood pressure 64 mm[Hg] Nurse 220 [facility] 04-30-2023 11:26-0500 Heart rate 60 /min Nurse 220 [facility] 04-30-2023 11:26-0500 Systolic blood pressure 128 mm[Hg] Nurse 220 [facility] 04-26-2023 19:38-0500 Body temperature 97.11 [degF] Sean Gombash DO Work Phone: [facility] 04-26-2023 19:38-0500 Diastolic blood pressure 88 mm[Hg] Sean Gombash DO Work Phone: [facility] 04-26-2023 19:38-0500 Heart rate 60 /min Sean Gombash DO Work Phone: [facility] 04-26-2023 19:38-0500 Respiratory rate 18 /min Sean Coats DO Work Phone: [facility] 04-26-2023 19:38-0500 SaO2% (BldA) [Mass fraction] 97 % Sean Gombash DO Work Phone: [facility] 04-26-2023 19:38-0500 Systolic blood pressure 141 mm[Hg] Sean Gombash DO Work Phone: [facility] 04-24-2023 08:04-0500 Body temperature 98.2 [degF] Avtar Babin MD Work Phone: [facility] 04-24-2023 08:04-0500 Diastolic blood pressure 72 mm[Hg] Avtar Babin MD Work Phone: [facility] 04-24-2023 08:04-0500 Heart rate 60 /min Avtar Babin MD Work Phone: [facility] 04-24-2023 08:04-0500 Respiratory rate 18 /min Avtar Babin MD Work Phone: [facility] 04-24-2023 08:04-0500 SaO2% (BldA) [Mass fraction] 96 % Avtar Babin MD Work Phone: [facility] 04-24-2023 08:04-0500 Systolic blood pressure 120 mm[Hg] Avtar Babin MD Work Phone: [facility] 04-23-2023 11:41-0500 Body height 172.7 cm Avtar Babin MD Work Phone: [facility] [employer] 04-23-2023 11:41-0500 Body mass index (BMI) [Ratio] 31.47 kg/m2 Avtar Babin MD Work Phone: [facility] 04-23-2023 11:41-0500 Body weight 93.89 kg Avtar Babin MD Work Phone: [facility] [employer] 03-29-2023 15:47-0500 Body height 172.7 cm Avtar Babin MD Work Phone: [facility] 03-29-2023 15:47-0500 Body mass index (BMI) [Ratio] 31.17 kg/m2 Avtar Babin MD Work Phone: [facility] 03-29-2023 15:47-0500 Body weight 92.99 kg Avtar Babin MD Work Phone: [facility] 03-02-2023 10:10-0500 Body height 172.7 cm Chad Fres[place] TICKET SORTER.EPIC AMBULATORY ANALYST Work Phone: [facility] 03-02-2023 10:10-0500 Body weight 92.08 kg Chad [place] TICKET SORTER.EPIC AMBULATORY ANALYST Work Phone: [facility] 03-02-2023 10:10-0500 Heart rate 67 /min Chad [place] TICKET SORTER.EPIC AMBULATORY ANALYST Work Phone: [facility] 03-02-2023 10:10-0500 SaO2% (BldA) [Mass fraction] 95 % Chad [place] TICKET SORTER.EPIC AMBULATORY ANALYST Work Phone: [facility] 02-22-2023 11:50-0500 Body weight 94.44 kg Ike Sierra MD Work Phone: [facility] 02-22-2023 11:50-0500 Diastolic blood pressure 72 mm[Hg] Ike Sierra MD Work Phone: [facility] 02-22-2023 11:50-0500 Heart rate 86 /min Ike Sierra MD Work Phone: [facility] 02-22-2023 11:50-0500 SaO2% (BldA) [Mass fraction] 97 % Ike Sierra MD Work Phone: [facility] 02-22-2023 11:50-0500 Systolic blood pressure 138 mm[Hg] Ike Sierra MD Work Phone: [facility] 02-06-2023 13:33-0500 Diastolic blood pressure 68 mm[Hg] Brunilda Cruz TICKET SORTER.EPIC AMBULATORY ANALYST Work Phone: [facility] 02-06-2023 13:33-0500 Heart rate 70 /min Brunilda Cruz TICKET SORTER.EPIC AMBULATORY ANALYST Work Phone: [facility] 02-06-2023 13:33-0500 Systolic blood pressure 142 mm[Hg] Brunilda Cruz TICKET SORTER.EPIC AMBULATORY ANALYST Work Phone: [facility] 09-11-2022 10:20-0400 Body temperature 98.6 [degF] [facility] 09-11-2022 10:20-0400 Diastolic blood pressure 56 mm[Hg] [facility] 09-11-2022 10:20-0400 Heart rate 54 /min [facility] 09-11-2022 10:20-0400 Respiratory rate 16 /min [facility] 09-11-2022 10:20-0400 SaO2% (BldA) [Mass fraction] 99 % [facility] 09-11-2022 10:20-0400 Systolic blood pressure 113 mm[Hg] [facility] 09-11-2022 09:10-0400 Body height 172.72 cm [facility] 09-11-2022 09:10-0400 Body mass index (BMI) [Ratio] 31.4 kg/m2 [facility] 09-11-2022 09:10-0400 Body weight 93.8 kg [facility] 07-05-2022 13:39-0400 Body height 172.7 cm Nancy Potter MD Work Phone: [facility] 07-05-2022 13:39-0400 Body weight 92.99 kg Nancy Potter MD Work Phone: [facility] 07-05-2022 13:39-0400 Diastolic blood pressure 82 mm[Hg] Nancy Potter MD Work Phone: [facility] 07-05-2022 13:39-0400 Heart rate 78 /min Nancy Potter MD Work Phone: [facility] 07-05-2022 13:39-0400 SaO2% (BldA) [Mass fraction] 98 % Nancy Potter MD Work Phone: [facility] 07-05-2022 13:39-0400 Systolic blood pressure 148 mm[Hg] Nancy Potter MD Work Phone: [facility] Encounters Encounter Date Encounter Type Care Provider Facility Start: 10-13-2024 ambulatory Sunny Nelson y:[facility] Start: 10-13-2024 End: 10-13-2024 Admission to same day surgery center Dr. Sunny Estevez MD -[facility] Start: 10-13-2024 End: 10-13-[address] Sunny Estevez MD Work Phone: [facility] Start: 10-08-2024 End: 10-08-2024 Patient encounter procedure [facility] Provider [facility] Department Start: 10-07-2024 End: 10-07-2024 Telephone encounter Brunilda Cruz APRN.EPIC AMBULATORY ANALYST Work Phone: [facility] EPS 220 Start: 10-07-2024 End: 10-07-2024 Office outpatient visit 25 minutes Avtar Babin MD Work Phone: [facility] - [place] Comment on above: Prostate cancer (HCC ) (Primary Dx); Stress incontinence, male; Erectile dysfunction after radical prostatectomy Start: 10-07-2024 End: 10-07-2024 ambulatory NIR BURNETT [facility] Start: 10-02-2024 End: 10-02-2024 ambulatory ARIC LINDA Facility:[id number] Start: 09-24-2024 End: 09-24-2024 Patient encounter procedure [facility] Provider [facility] Start: 07-30-2024 End: 09-29-2024 Follow-up encounter Albertina Crum MD Work Phone: Provider Adult Start: 07-30-2024 End: 07-30-2024 ambulatory ANGELINE CHOW Facility:[id number] Start: 07-30-2024 ambulatory DALLAS ROJAS Facility: [id number] Start: 07-30-2024 End: 07-30-2024 Subsequent [facility] Comment on above: Unspecified cirrhosi s of liver [K74.60] Start: 07-15-2024 End: 07-21-2024 Telephone encounter Aric Linda DO Work Phone: [facility] Comment on above: Other (Advice on jodi dario ) Start: 07-15-2024 End: 07-15-2024 Patient encounter procedure Brunilda Cruz APRN.EPIC AMBULATORY ANALYST Work Phone: [facility] Cardiology Comment on above: Benign hypertension (Primary Dx); Mixed hyperlipidemia; PAF (paroxysmal atrial fibrillation) (HCC); assisted current use of anticoagulant; Pacemaker; AV node dysfunction; Sinus bradycardia; Obesity (BMI 30.0-34.9) Start: 07-15-2024 End: 07-15-2024 ambulatory BRUNILDA CRUZ Facility:[id number] Start: 07-04-2024 End: 09-03-2024 Follow-up encounter Albertina Crum MD Work Phone: [facility] Provider Adult Start: 07-03-2024 End: 07-03-2024 ambulatory YUSUF TURNER Facility:[id number] Start: 07-03-2024 End: 07-03-2024 Subsequent hospital visit by physician Eva Hull Work Phone: [facility] Start: 05-26-2024 End: 05-27-2024 Refill Brunilda Cruz APRN.EPIC AMBULATORY ANALYST Work Phone: [facility] Cardiology Comment on above: Refill Request Start: 05-06-2024 End: 05-06-2024 Refill Brunilda Cruz TICKET SORTER.EPIC AMBULATORY ANALYST Work Phone: [facility] Cardiology Comment on above: Refill Request Start: 04-22-2024 End: 04-22-2024 ambulatory DALLAS ROJAS Facility:[id number] Start: 04-17-2024 End: 04-17-2024 Office outpatient visit 25 minutes Aric Linda DO Work Phone: [facility] Comment on above: Prostate cancer (HCC ) (Primary Dx); Stress incontinence, male; Erectile dysfunction after radical prostatectomy Start: 04-17-2024 End: 04-17-2024 ambulatory NIR BURNETT [facility] Start: 04-11-2024 End: 04-11-2024 Patient encounter procedure Rem Device [facility] 220 [facility] Cardiology Comment on above: Encounter for care o f pacemaker (Primary Dx) Start: 04-11-2024 End: 04-11-2024 ambulatory NIR LE Facility:[id number] Start: 04-08-2024 End: 04-08-2024 Telephone encounter Brunilda Cruz APRN.EPIC AMBULATORY ANALYST Work Phone: [facility] Cardiology Comment on above: Patient Update (AFIB ) Start: 03-17-2024 End: 03-17-2024 ambulatory NIR BURNETT [facility] Start: 03-10-2024 End: 03-20-2024 Telephone encounter Bradford Arce MD Work Phone: [facility] Start: 03-10-2024 End: 03-10-2024 ambulatory NIR BURNETT [facility] Start: 03-10-2024 End: 03-10-2024 Subsequent hospital visit by physician Aric Linda DO Work Phone: [facility] MA[facility] OR Comment on above: Erectile dysfunction after radical prostatectomy (Primary Dx); Stress incontinence, male; Abscess of male pelvis (CMS/HCC) (HCC) Start: 03-03-2024 End: 03-03-2024 Telephone encounter Brianna Cain APRN - EPIC AMBULATORY ANALYST Work Phone: [facility] Start: 02-28-2024 End: 02-28-2024 ambulatory NIR BURNETT [facility] Start: 02-28-2024 End: 02-28-2024 Encounter for other preprocedural examination ARIC LINDA [facility] Start: 02-28-2024 End: 03-03-2024 Telephone encounter Brianna Cain APRN - EPIC AMBULATORY ANALYST Work Phone: [facility] Start: 02-26-2024 End: 02-26-2024 ambulatory NIR LE MD Facility:A Start: 02-04-2024 End: 02-04-2024 ambulatory AVTAR BABIN Facility:[id number] Start: 02-01-2024 End: 02-11-2024 Telephone encounter Aric Linda DO Work Phone: [facility] Comment on above: Surgery Scheduling Start: 01-30-2024 End: 01-30-2024 Patient encounter procedure [facility] Linda DO [facility] Comment on above: Dysuria (Primary Dx) Start: 01-30-2024 End: 01-30-2024 [facility] Start: 01-16-2024 End: 01-16-2024 Patient encounter procedure [facility] Provider [facility] Start: 01-14-2024 End: 01-14-2024 ambulatory NIR LE Facility:[id number] Start: 01-11-2024 End: 01-11-2024 Refill Brunilda Cruz APRN.EPIC AMBULATORY ANALYST Work Phone: [facility] Cardiology Comment on above: Refill Request Start: 01-07-2024 End: 01-07-2024 ambulatory BRUNILDA CRUZ Facility:[id number] Start: 01-07-2024 End: 01-07-2024 Patient encounter procedure Brunilda Cruz TICKET SORTER.EPIC AMBULATORY ANALYST Work Phone: [facility] Cardiology Comment on above: Benign hypertension (Primary Dx); Mixed hyperlipidemia; PAF (paroxysmal atrial fibrillation) ([facility]); 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; Pacemaker; AV node dysfunction; DM II (diabetes mellitus, type II) ([facility]) Encounter for care o f pacemaker (Primary Dx) Start: 01-02-2024 End: 01-02-2024 Office outpatient visit 25 minutes Aric Linda DO [facility] Comment on above: Stress incontinence, male (Primary Dx); Erectile dysfunction after radical prostatectomy; Prostate cancer ([facility]) Start: 01-02-2024 End: 01-02-2024 ambulatory NIR HORTENCIA [facility] Start: 12-13-2023 End: 12-13-2023 ambulatory NIR LE MD Facility:A Start: 11-15-2023 End: 11-15-2023 Telephone encounter Avtar Babin MD Work Phone: [facility] Urology Comment on above: Other Start: 11-14-2023 End: 11-14-2023 Office outpatient visit 25 minutes Avtar Babin MD Work Phone: [facility] Comment on above: Prostate cancer (HCC ) (Primary Dx); Stress incontinence; Erectile dysfunction after radical prostatectomy Start: 11-14-2023 End: 11-14-2023 ambulatory NIR [facility] Start: 11-07-2023 End: 11-07-2023 ambulatory NIR LE Facility:[id number] Start: 10-16-2023 Patient encounter procedure Ccf Provider [facility] Start: 10-11-2023 Patient encounter procedure [facility]cf Provider [facility] Start: 10-03-2023 End: 10-03-2023 Patient encounter procedure [facility] [place] 220 [facility] Cardiology Comment on above: Encounter for care o f pacemaker (Primary Dx) Start: 08-14-2023 End: 08-14-2023 Office outpatient visit 25 minutes Avtar Babin MD Work Phone: [facility] Urology Comment on above: Prostate cancer (HCC ) (Primary Dx); Stress incontinence Start: 08-02-2023 End: 09-26-2023 ambulatory NIR EL MD Facility:A Start: 07-20-2023 End: 07-20-2023 Office outpatient visit 15 minutes Carline Acosta PA-C Work Phone: [facility] Infectious Disease Comment on above: Abscess of male pelv is (CMS/HCC) (HCC) (Primary Dx) Start: 07-19-2023 End: 07-19-2023 Subsequent hospital visit by physician Carline Acosta PA-C Work Phone: [facility] CT Comment on above: Abscess of male pelv is (CMS/HCC) (HCC) Start: 07-10-2023 End: 07-10-2023 Postop follow up visit related to original px Avtar Babin MD Work Phone: [facility] Urology Comment on above: Prostate cancer (HCC ) (Primary Dx) Start: 06-30-2023 End: 07-05-2023 Evaluation and management of inpatient Jonna Day MD Work Phone: [facility] Oncology Medical [facility] 7[facility] Comment on above: Abscess of male pelv is (CMS/HCC) (HCC) (Primary Dx) Start: 06-29-2023 End: 06-29-2023 Subsequent hospital visit by physician [facility] [place] [id number] Scan Comment on above: Elevation of levels of liver transaminase levels [R74.01] Start: 06-12-2023 Telephone encounter Brunilda saldana TICKET SORTER.EPIC AMBULATORY ANALYST Work Phone: [facility] Cardiology Comment on above: Patient Update Start: 06-04-2023 ambulatory Chad hidalgo TICKET SORTER.EPIC AMBULATORY ANALYST Work Phone: Pulmonary Medicine Start: 06-04-2023 Telephone encounter Chad harding TICKET SORTER.EPIC AMBULATORY ANALYST Work Phone: Pulmonary Medicine Comment on above: Results Start: 06-01-2023 End: 06-01-2023 Subsequent hospital visit by physician Ct Mobile Hal Hull Work Phone: RADIO [facility] SCAN [facility] Comment on above: Lung nodules [R91.8] Start: 05-14-2023 End: 05-14-2023 Nursing evaluation of patient and report Nurse Card [place] 220 [facility] Cardiology Comment on above: PAF (paroxysmal atri al fibrillation) (HCC) (Primary Dx); Benign hypertension Start: 05-10-2023 End: 05-10-2023 Postop follow up visit related to original px Avtar Babin MD Work Phone: [facility] Comment on above: Prostate cancer (HCC ) (Primary Dx); Stress incontinence Start: 05-01-2023 End: 05-01-2023 Clinical Support U[facility] [place] Schedule [facility] Comment on above: Prostate cancer (HCC ) Start: 04-30-2023 End: 04-30-2023 Nursing evaluation of patient and report Nurse Card [place]des [facility] Cardiology Comment on above: PAF (paroxysmal atri al fibrillation) (HCC) (Primary Dx); Benign hypertension Start: 04-26-2023 End: 04-27-2023 Emergency department patient visit Sean Lora Pauly DO Work Phone: [facility] EMERGENCY DEPT Comment on above: Post-operative state (Primary Dx); S/P prostatectomy; Malignant neoplasm of prostate (HCC) Start: 04-23-2023 End: 04-24-2023 Subsequent hospital visit by physician Avtar Babin MD Work Phone: [facility] Medical Surgical Unit MSU H5 Comment on above: Malignant neoplasm o f prostate (HCC) (Primary Dx) Start: 04-03-2023 Telephone encounter Avtar lopez MD Work Phone: [facility] Comment on above: Surgery Scheduling ( PAT/Surgery/Follow ups scheduled) Start: 03-29-2023 End: 03-29-2023 Office outpatient new 60 minutes Avtar Babin MD Work Phone: [facility] Comment on above: Prostate cancer (HCC ) (Primary Dx); Elevated PSA, less than 10 ng/ml; Benign prostatic hyperplasia without lower urinary tract symptoms Start: 03-12-2023 Telephone encounter Avtar lopez MD Work Phone: [facility] Start: 03-02-2023 End: 03-02-2023 Patient encounter procedure Chad Davis TICKET SORTER.EPIC AMBULATORY ANALYST Work Phone: [facility] Pulmonary Comment on above: Lung nodules (Primar y Dx); Prostate cancer (HCC) Start: 03-02-2023 End: 03-02-2023 ambulatory SUNNY FARAH MD Facility:A Start: 02-22-2023 End: 02-22-2023 Patient encounter procedure Ike Sierra MD Work Phone: [facility] General Surgery Comment on above: Acute gangrenous cho lecystitis (Primary Dx); Cirrhosis of liver without ascites, unspecified hepatic cirrhosis type (HCC); Dysuria Start: 02-14-2023 Telephone encounter Brunilda saldana TICKET SORTER.EPIC AMBULATORY ANALYST Work Phone: [facility] Cardiology Start: 02-06-2023 Telephone encounter Louise Batres [facility]iology Comment on above: Orders Start: 02-06-2023 End: 02-06-2023 Patient encounter procedure Brunilda Cruz TICKET SORTER.EPIC AMBULATORY ANALYST Work Phone: [facility] Cardiology Comment on above: Obesity (BMI 30.0-34 .9) (Primary Dx); Benign hypertension; Mixed hyperlipidemia; PAF (paroxysmal atrial fibrillation) (HCC); assisted current use of anticoagulant; CKD (chronic kidney disease) stage 2, GFR 60-89 ml/min; PVC's (premature ventricular contractions); AV node dysfunction; Sinus bradycardia Start: 02-06-2023 End: 02-06-2023 ambulatory SUNNY FARAH MD Facility:A Start: 02-06-2023 End: 02-06-2023 Patient encounter procedure SUNNY FARAH MD [facility] Start: 02-05-2023 End: 02-05-2023 ambulatory SUNNY FARAH MD Facility:A Start: 01-16-2023 ambulatory JANET THOMASON MD [facility] ity:A Start: 01-15-2023 End: 01-15-2023 ambulatory SUNNY FARAH MD Facility:A Start: 01-15-2023 End: 01-15-2023 Patient encounter procedure SUNNY FARAH MD [facility] Start: 01-12-2023 End: 01-12-2023 Subsequent hospital visit by physician Eva Hull Work Phone: [facility] Start: 01-09-2023 Telephone encounter Nancy hung MD Work Phone: [facility] Cardiology Start: 01-03-2023 End: 01-03-2023 ambulatory SUNNY FARAH MD Facility:A Start: 12-29-2022 Patient encounter procedure [facility] Provider [facility] Department Start: 12-15-2022 Telephone encounter Nancy hung MD Work Phone: [facility] Cardiology Comment on above: Patient Question Start: 12-01-2022 Telephone encounter Nancy hung MD Work Phone: [facility] Card[facility] Comment on above: Cardiac Clearance Start: 11-13-2022 End: 11-13-2022 ambulatory MEL Maicol ANGELES TICKET SORTER-EPIC AMBULATORY ANALYST Facility:A Start: 11-13-2022 End: 11-13-2022 Patient encounter procedure MELROLLY ANGELES TICKET SORTER-EPIC AMBULATORY ANALYST [facility] Start: 10-30-2022 End: 11-03-2022 ambulatory MEL D ANGELES TICKET SORTER-EPIC AMBULATORY ANALYST Facility:A Start: 10-30-2022 End: 10-30-2022 Subsequent hospital visit by physician [facility] Comment on above: FATTY LIVER Start: 10-16-2022 End: 10-16-2022 ambulatory MEL D ANGELES TICKET SORTER-EPIC AMBULATORY ANALYST Facility:A Start: 10-10-2022 End: 10-14-2022 ambulatory MEL D ANGELES TICKET SORTER-EPIC AMBULATORY ANALYST Facility:A Start: 09-25-2022 ambulatory Nurys Lanza RT(R) [facility] ear [facility] Comment on above: Radiology [place] Start: 09-25-2022 Patient encounter procedure Nurys Lanza RT(R) [facility] Start: 09-25-2022 End: 09-25-2022 Subsequent hospital visit by physician [facility] Room 1 [facility] Nuclear Medicine Start: 09-11-2022 End: 09-11-2022 Admission to same day surgery center [facility] Start: 09-11-2022 End: 09-11-2022 ambulatory [facility] Work Phone: Start: 09-07-2022 Telephone encounter Nancy hung MD Work Phone: [facility] Cardiology Comment on above: Release Of Medical R ecords Start: 07-19-2022 Patient encounter procedure [facility] Provider [facility] Start: 07-13-2022 Refill Nancy swift MD Work Phone: [facility] Cardiology Comment on above: Refill Request Start: 07-05-2022 End: 07-05-2022 Patient encounter procedure Nancy Potter MD Work Phone: [facility] Card[facility] Comment on above: Essential hypertensi on (Primary Dx); Paroxysmal atrial fibrillation (HCC); Encounter for screening for cardiovascular disorders Start: 12-05-2021 Telephone encounter Nancy Potter MD Work Phone: [facility] Cardiology Comment on above: Appointment Start: 10-21-2021 End: 10-21-2021 Patient encounter procedure MEL Maicol ANGELES TICKET SORTER-EPIC AMBULATORY ANALYST [facility] Start: 09-04-2021 Transcribe Orders Dallas kramer MD Work Phone: [facility] Comment on above: Hepatic cirrhosis, u nspecified hepatic cirrhosis type, unspecified whether ascites present (HCC) (Primary Dx) Start: 07-12-2021 End: 07-12-2021 Subsequent hospital visit by physician Nurys Mueller DO Work Phone: [facility] Comment on above: PRIMARY OSTEOARTHRIT IS, LEFT HAND Start: 05-07-2021 End: 05-07-2021 Subsequent hospital visit by physician Boyd Linares DO Work Phone: [facility] Comment on above: Z79.84,.E78.2,E03.8 Start: 04-04-2021 End: 04-04-2021 Subsequent hospital visit by physician Lincoln Almeida Work Phone: [facility] Comment on above: N18.31,I12.9 Start: 03-03-2021 End: 03-03-2021 Subsequent hospital visit by physician [facility] Provider [facility] Comment on above: PAIN IN LEFT HIP M25 .[id number] Start: 07-05-2017 Ambulatory [facility] Facility:[id number] Start: 06-29-2017 [facility] Date Procedure Procedure Detail Performing Clinician Start: 10-13-2024 Local anesthetic sac ral epidural block Dr. Sunny Estevez MD Work Phone: Start: 07-30-2024 Dup-scan artl emerson abdl/pel/scrot&/rpr orgn com Yusuf Turner PA-C Work Phone: Start: 07-30-2024 US ABD LIVER VASCULAR D socrates Raghavendra Turner PA-C Work Phone: Start: 07-15-2024 Ecg routine ecg w/le ast 12 lds i&r only Brunilda Cruz TICKET SORTER.EPIC AMBULATORY ANALYST Work Phone: Start: 04-22-2024 Thyrotropin [Units/v olume] in Serum or Plasma Aric Linda DO Work Phone: Start: 03-10-2024 Glucose quantitative blood xcpt reagent strip Aric Linda DO Work Phone: Start: 03-10-2024 Glucose quantitative blood xcpt reagent strip Aric Linda DO Work Phone: Start: 10-08-2023 Thyrotropin [Units/v olume] in Serum or Plasma Avtar Babin MD Work Phone: Start: 07-05-2023 Basic metabolic pane l calcium total Lincoln Anderson MD Work Phone: Start: 07-04-2023 Ct pelvis w/contrast material Isrrael Arce MD Work Phone: Start: 07-04-2023 Basic metabolic pane l calcium total Lincoln Anderson MD Work Phone: Start: 07-03-2023 Glucose quantitative blood xcpt reagent strip Isrrael Arce MD Work Phone: Start: 07-03-2023 Creatinine other source Mihai Barclay MD Work Phone: Start: 07-03-2023 Basic metabolic pane l calcium total Lincoln Anderson MD Work Phone: Start: 07-02-2023 Glucose quantitative blood xcpt reagent strip Isrrael Arce MD Work Phone: Start: 07-02-2023 Glucose quantitative blood xcpt reagent strip Isrrael Arce MD Work Phone: Start: 07-02-2023 Glucose quantitative blood xcpt reagent strip Isrrael Arce MD Work Phone: Start: 07-02-2023 Image-guide fluid co llxn drainage cath visc perq Carline Acosta PA-C Work Phone: Start: 07-02-2023 Culture bacterial an y source anaerobic iso&id Carline Acosta PA-C Work Phone: Start: 07-02-2023 Glucose quantitative blood xcpt reagent strip Isrrael Arce MD Work Phone: Start: 07-02-2023 Basic metabolic pane l calcium total Lincoln Anderson MD Work Phone: Start: 07-01-2023 Glucose quantitative blood xcpt reagent strip Isrrael Arce MD Work Phone: Start: 07-01-2023 Glucose quantitative blood xcpt reagent strip Michael Keenan DO Work Phone: Start: 07-01-2023 Drug screen quantita tive vancomycin Carline Acosta PA-C Work Phone: Start: 07-01-2023 Glucose quantitative blood xcpt reagent strip Michael Riveraallison DO Work Phone: Start: 07-01-2023 Glucose quantitative blood xcpt reagent strip Michael Riveraodi DO Work Phone: Start: 07-01-2023 Basic metabolic pane l calcium total Michael Riveraallison DO Work Phone: Start: 06-30-2023 Ecg routine ecg w/le ast 12 lds trcg only w/o i&r Carline Acosta PA-C Work Phone: Start: 06-30-2023 Bacteria identified in Blood by Culture Michael Keenan DO Work Phone: Start: 06-30-2023 Procalcitonin (pct) Niranjan rge Miguelodi DO Work Phone: Start: 06-30-2023 Comprehensive metabo lic panel Jonna Day MD Work Phone: Start: 06-30-2023 Manual Differential panel - Blood Jonna Day MD Work Phone: Start: 06-29-2023 Ct abdomen & pelvis w/contrast material Nir Le MD Work Phone: Start: 05-14-2023 Ecg routine ecg w/le ast 12 lds i&r only Brunilda Cruz TICKET SORTER.EPIC AMBULATORY ANALYST Work Phone: Start: 04-30-2023 Ecg routine ecg w/le ast 12 lds i&r only Brunilda Cruz TICKET SORTER.EPIC AMBULATORY ANALYST Work Phone: Start: 04-26-2023 Ct abdomen & pelvis w/o contrast material Sean A Gombash DO Work Phone: Start: 04-26-2023 Us scrotum & contents T yler Guido Gombash DO Work Phone: Start: 04-26-2023 Urinalysis complete panel - Urine Sean A Gombash DO Work Phone: Start: 04-26-2023 Urnls dip stick/tabl et reagent auto microscopy Sean A Gombash DO Work Phone: Start: 04-26-2023 Comprehensive metabo lic panel Sean A Gombash DO Work Phone: Start: 04-24-2023 Glucose quantitative blood xcpt reagent strip Avtar Babin MD Work Phone: Start: 04-24-2023 Glucose quantitative blood xcpt reagent strip Avtar Babin MD Work Phone: Start: 04-24-2023 End: 04-24-2023 Basic metabolic panel calcium total Max J Haydee GOMEZ Work Phone: Start: 04-24-2023 Glucose quantitative blood xcpt reagent strip Avtar Babin MD Work Phone: Start: 04-23-2023 Glucose quantitative blood xcpt reagent strip Avtar Babin MD Work Phone: Start: 04-23-2023 Glucose quantitative blood xcpt reagent strip Avtar Babin MD Work Phone: Start: 04-23-2023 End: 04-23-2023 Laps prostect retropubic rad w/nrv sparing robot Avtar Babin MD Work Phone: Start: 04-23-2023 End: 04-23-2023 Laps surg bilateral total pelvic lmphadectomy Avtar Babin MD Work Phone: Start: 04-23-2023 Glucose quantitative blood xcpt reagent strip Avtar Babin MD Work Phone: Start: 04-04-2023 Thyrotropin [Units/v olume] in Serum or Plasma Avtar Babin MD Work Phone: Start: 03-09-2023 Thyrotropin [Units/v olume] in Serum or Plasma Avtar Babin MD Work Phone: Start: 02-06-2023 Ecg routine ecg w/le ast 12 lds i&r only Brunilda Cruz TICKET SORTER.EPIC AMBULATORY ANALYST Work Phone: Start: 01-03-2023 Prostate biopsy samp le (specimen) SUNNY FARAH MD Start: 10-30-2022 Us abdominal real ti me w/image documentation Nelile Rojas MD Work Phone: Start: 09-25-2022 Myocardial spect mul tiple studies Nancy Potter MD Work Phone: Start: 09-11-2022 Local anesthetic sac ral epidural block Start: 06-24-2018 Local anesthetic sac ral epidural block MEL ANGELES TICKET SORTER-EPIC AMBULATORY ANALYST Finger structure (erasmo dy structure) MEL ANGELES TICKET SORTER-EPIC AMBULATORY ANALYST H/O: surgery S/P prostatectomy Sean Guido Shell mbash DO Work Phone: Hand structure (body structure) MEL ANGELES TICKET SORTER-EPIC AMBULATORY ANALYST Comment on above: 5 total between both hands Implant, device (phy sical object) MEL ANGELES TICKET SORTER-EPIC AMBULATORY ANALYST Comment on above: for pain Plan of Treatment Date Care Activity Detail Author Start: 11-08-2026 LIPID SCREEN LIPID SCREEN [facility] Start: 05-07-2026 LIPID SCREEN LIPID SCREEN [facility] Start: 12-05-2025 Diabetes Screening Diabetes Screenin g [facility] Start: 10-30-2025 DIABETES SCREEN DIABETES SCREEN [facility] Start: 08-10-2025 DIABETES SCREEN DIABETES SCREEN [facility] Start: 07-30-2025 Creatinine measurement Serum Creatin ine [facility] Start: 07-30-2025 Diabetes: Estimated Glomerular Filtration Rate for Kidney [facility] Diabetes: Estimated Glomerular Filtration Rate for Kidney Health [facility] Start: 07-18-2025 DIABETES SCREEN DIABETES SCREEN [facility] Start: 07-15-2025 BP Controlled (<130/80) BP Controlle d (<130/80) [facility] Start: 07-15-2025 zzBP Controlled (<13 0/80) (Retired) zzBP Controlled (<130/80) (Retired) [facility] Start: 05-23-2025 DIABETES SCREEN DIABETES SCREEN [facility] Start: 04-22-2025 Creatinine measurement Serum Creatin ine [facility] Start: 04-22-2025 Diabetes: Urine Albumin-Creatinine Ratio for Kidney Health Diabetes: Urine Albumin-Creatinine Ratio for Kidney Health [facility] Start: 04-22-2025 Hepatitis B screening Urine Albumin:Creatinine Ratio [facility] Start: 04-22-2025 Thyroid stimulating hormone measurement TSH Level [facility] Start: 04-14-2025 End: 04-14-2025 Patient encounter procedure 04/14/2025 11:30 AM EST Office Visit [facility] [place] [address] [place] [phone] Avtar Babin MD [address] [place] [address] [facility] [place] Start: 01-30-2025 Hemoglobin A1c measurement HbA1C [facility] Start: 01-21-2025 End: 01-21-2025 Patient encounter procedure [facility] Comment on above: bio and rc Start: 01-13-2025 Creatinine measurement Serum Creatin ine [facility] Start: 01-13-2025 Diabetes: Urine Albumin-Creatinine Ratio for Kidney Health Diabetes: Urine Albumin-Creatinine Ratio for Kidney Health [facility] Start: 01-13-2025 Hepatitis B screening Urine Albumin:Creatinine Ratio [facility] Start: 01-13-2025 Hepatitis B surface antibody level LDL Cholesterol [facility] Start: 01-06-2025 BP Controlled (<130/80) BP Controlle d (<130/80) [facility] Start: 11-24-2024 Influenza vaccination Influenza Vacc ine (#1) [facility] Start: 11-08-2024 DIABETES SCREEN DIABETES SCREEN [facility] Start: 10-28-2024 End: 10-28-2024 Patient encounter procedure [facility] [place] Start: 10-20-2024 Hemoglobin A1c measurement HbA1C [facility] Start: 10-17-2024 End: 10-17-2024 Patient encounter procedure 10/17/2024 1:20 PM EDT Office Visit [facility] Card[facility] [address] [place] [id number] bio [facility] Comment on above: bio Start: 10-13-2024 Injection of spinal epidural space [facility] Start: 10-13-2024 Injection using fluoroscopic guidance [facility] Start: 10-13-2024 Patient discharge [facility] Start: 10-07-2024 Creatinine measurement Serum Creatin ine [facility] Start: 10-07-2024 Thyroid stimulating hormone measurement TSH Level [facility] Start: 10-07-2024 End: 10-07-2024 Patient encounter procedure 10/07/2024 11:30 AM EDT Office Visit [facility] [place] [address] [place] [phone] Avtar Babin MD [address] [place] [address] [facility] [place] Start: 09-15-2024 End: 07-16-2025 PSA Total (Diagnostic Post-Prostatectomy) PSA Total (Diagnostic Post-Prostatectomy) Lab Routine Prostate cancer (HCC) Expected: 09/15/2024 (Approximate), Expires: 07/16/2025 [facility] Comment on above: Expected: 09/15/2024 (Approximate), Expires: 07/16/2025 Start: 09-02-2024 Creatinine measurement Serum Creatin ine [facility] Start: 07-30-2024 End: 07-30-2024 Patient encounter procedure 07/30/2024 8:00 AM EDT Appointment [facility] [address] [place], [place] [id number] reg pt on arrival [facility] Comment on above: reg pt on arrival* * Start: 07-29-2024 Covid-19 Vaccine () Covid-19 Vaccine () [facility] Start: 07-25-2024 Diabetes: Estimated Glomerular Filtration Rate for Kidney Health Diabetes: Estimated Glomerular Filtration Rate for Kidney Health [facility] Start: 07-15-2024 End: 07-15-2024 Patient encounter procedure [facility] Comment on above: bio and rc Start: 07-14-2024 Hemoglobin A1c measurement HbA1C [facility] Start: 06-28-2024 Creatinine measurement Serum Creatin ine [facility] Start: 06-27-2024 Hepatitis B surface antibody level LDL Cholesterol [facility] Start: 05-14-2024 BP Controlled (<130/80) BP Controlle d (<130/80) [facility] Start: 05-11-2024 Creatinine measurement Serum Creatin ine [facility] Start: 05-07-2024 DIABETES SCREEN DIABETES SCREEN [facility] Start: 04-30-2024 BP Controlled (<130/80) BP Controlle d (<130/80) [facility] Start: 04-26-2024 Creatinine measurement Serum Creatin ine [facility] Start: 04-17-2024 End: 10-15-2024 PSA Total (Diagnostic Post-Prostatectomy) PSA Total (Diagnostic Post-Prostatectomy) Lab Routine Prostate cancer (HCC) Expected: 04/17/2024 (Approximate), Expires: 10/15/2024 [facility] Work Phone: Comment on above: Expected: 04/17/2024 (Approximate), Expires: 10/15/2024 Start: 04-17-2024 End: 04-17-2024 Patient encounter procedure [facility] [place] Start: 04-11-2024 End: 04-11-2024 Patient encounter procedure 04/11/2024 1:40 PM EST Office Visit [facility] [address] [place] [address] bio [facility] Comment on above: bio Start: 04-09-2024 Hemoglobin A1c measurement HbA1C [facility] Start: 04-04-2024 Hepatitis B surface antibody level LDL Cholesterol [facility] Start: 04-04-2024 Thyroid stimulating hormone measurement TSH Level [facility] Start: 03-26-2024 Advance Directive Discussion Advance Directive Discussion [facility] Start: 03-26-2024 Medicare Advantage A nnual Wellness Visit Medicare Advantage Annual Wellness Visit [facility] Start: 03-10-2024 End: 03-10-2024 Adjt tis trns/reargmt f/c/c/m/n/a/g/h/f 10sqcm/< TISSUE FLAP FOREHEAD CHEEKS CHIN MOUTH NECK AXILLAE GENITALIA HANDS FEET 10.0 CM OR LESS Erectile dysfunction following radical prostatectomy Stress incontinence (female) (male) 03/10/2024 7:30 AM EST [facility] Start: 03-10-2024 End: 03-10-2024 Admission to same day surgery center 03/10/2024 7:30 AM EST - 03/10/2024 12:30 PM EST Surgery [facility] MAIN OR [address] [place] [address] Aric Linda DO [address] [place] [address] INSERTION MALE URETHRAL SLING [28648 (CPT )] [facility] Comment on above: INSERTION MALE URETH RAL SLING [89035 (CPT )] Start: 03-10-2024 End: 03-10-2024 Anesthesia consultation 03/10/2024 7:30 AM EST Anesthesia Event [facility] MA[facility] OR [address] [place] [phone] Brianna Cain, GREGORIO - EPIC AMBULATORY ANALYST [address] [place] [address] [facility] OR Start: 03-10-2024 End: 03-10-2024 Cystourethroscopy CYSTOSCOPY Erectile dysfunction following radical prostatectomy Stress incontinence (female) (male) 03/10/2024 7:30 AM EST [facility] Start: 03-10-2024 End: 03-10-2024 Insj penile prosthesos inflatable self-contained INSERTION OF PENILE PROSTHESIS INFLATABLE SELF CONTAINED Erectile dysfunction following radical prostatectomy Stress incontinence (female) (male) 03/10/2024 7:30 AM EST [facility] Start: 03-10-2024 End: 03-10-2024 Sling opration corrj male urinary incontinence SLING OPERATION FOR MALE INCONTINENCE Erectile dysfunction following radical prostatectomy Stress incontinence (female) (male) 03/10/2024 7:30 AM EST [facility] Start: 03-10-2024 Subsequent hospital visit by physician 03/10/2024 7:30 AM EST Hospital Encounter [facility] MA[facility] OR [address] [place] [phone] Aric Linda, DO [address] [place] [address] [facility] MAIN OR Start: 03-09-2024 Thyroid stimulating hormone measurement TSH Level [facility] Start: 03-03-2024 End: 03-03-2024 Admission to establishment 03/03/2024 11:30 AM EST Pre-Admission Testing [facility] Pre-Admit Testing [address] [facility] [place] [phone] [facility] Pre-Admit Testing Start: 02-14-2024 End: 02-14-2024 Patient encounter procedure [facility] Start: 02-09-2024 Serum Creatinine Serum Creatinine [facility] Start: 02-07-2024 Serum Creatinine Serum Creatinine [facility] Start: 01-30-2024 End: 01-30-2024 Patient encounter procedure 01/30/2024 11:20 AM EST Procedure Visit [facility] [place] [address] [place] [phone] Aric Linda DO [address] [place] [address] [facility] [place] Start: 01-07-2024 End: 01-07-2024 Patient encounter procedure [facility] Comment on above: bio and rc Start: 01-02-2024 End: 01-02-2024 Patient encounter procedure 01/02/2024 4:00 PM EDT Office Visit [facility] [address] [place] [phone] Aric Linda DO [address] [place] [address] [facility] Start: 12-28-2023 Hemoglobin A1c measurement HbA1C [facility] Start: 12-06-2023 Hepatitis B surface antibody level LDL Cholesterol [facility] Start: 11-25-2023 Covid-19 Vaccine ( season) Covid-19 Vaccine ( season) [facility] Start: 11-25-2023 Covid-19 Vaccine ( season) Covid-19 Vaccine ( season) [facility] Start: 11-25-2023 Influenza vaccination Influenza Vacc ine (#1) [facility] Start: 11-19-2023 End: 11-18-2024 PSA, total and free PSA, total and free Lab Routine Prostate cancer (HCC) Benign prostatic hyperplasia without lower urinary tract symptoms Expected: 11/19/2023 (Approximate), Expires: 11/18/2024 [facility] Work Phone: Comment on above: Expected: 11/19/2023 (Approximate), Expires: 11/18/2024 Start: 11-14-2023 End: 08-13-2024 PSA, total and free PSA, total and free Lab Routine Prostate cancer (HCC) Expected: 11/14/2023 (Approximate), Expires: 08/13/2024 [facility] Work Phone: Comment on above: Expected: 11/14/2023 (Approximate), Expires: 08/13/2024 Start: 11-14-2023 End: 11-14-2023 Patient encounter procedure 11/14/2023 1:30 PM EDT Office Visit [facility] [address] [place] [address] Avtar Babin MD [address] [place] [address] [facility] Start: 09-08-2023 Hemoglobin A1c measurement HbA1C [facility] Start: 08-14-2023 End: 08-14-2023 Patient encounter procedure 08/14/2023 11:30 AM EDT Office Visit [facility] [address] [place] [address] Avtar Babin MD [address] [place] [address] [facility] Start: 08-08-2023 End: 08-08-2023 Patient encounter procedure 08/08/2023 1:30 PM EDT Office Visit [facility] [address] [place] [address] Avtar Babin MD [address] [place] [address] [facility] Start: 07-25-2023 End: 07-25-2023 Patient encounter procedure 07/25/2023 3:00 PM EDT Office Visit [facility] Disease [address] [place] [phone] Carline Acosta PA-C [address] [place] [address] [facility] [facility] Start: 07-20-2023 End: 07-20-2023 Telemedicine consultation with patient 07/20/2023 1:30 PM EDT Telemedicine [facility] [address] [place] [phone] Carline Acosta PA-C [address] [place], [place] [id number] [facility] Start: 07-19-2023 Subsequent hospital visit by physician 07/19/2023 2:15 PM EDT Hospital Encounter [facility] [address] [place] [address] Carline Acosta PA-C [address] [place], [place] [id number] [facility] [address] Start: 07-10-2023 End: 07-09-2024 PSA, total and free PSA, total and free Lab Routine Prostate cancer (HCC) Expected: 07/10/2023 (Approximate), Expires: 07/09/2024 [facility] Work Phone: Comment on above: Expected: 07/10/2023 (Approximate), Expires: 07/09/2024 Start: 07-10-2023 End: 07-10-2023 Patient encounter procedure 07/10/2023 8:00 AM EDT Office Visit [facility] [address] [place] [address] Avtar Babin MD [address] [place] [address] [facility] Start: 07-09-2023 Covid-19 Vaccine () Covid-19 Vaccine () [facility] Start: 06-05-2023 Hemoglobin A1c/Hemoglobin.total in Blood HbA1C [facility] Start: 05-10-2023 End: 05-10-2024 PSA, total and free PSA, total and free Lab Routine Prostate cancer (HCC) Stress incontinence Expected: 05/10/2023 (Approximate), Expires: 05/10/2024 [facility] Work Phone: Comment on above: Expected: 05/10/2023 (Approximate), Expires: 05/10/2024 Start: 05-10-2023 End: 05-10-2023 Patient encounter procedure 05/10/2023 1:10 PM EST Office Visit [facility] [address] [place] [address] Avtar Babin MD [address] [place], [place] [id number] [facility] Start: 05-01-2023 End: 05-01-2023 Clinical Support 05/01/2023 8:00 AM EST Clinical Support [facility] [address] [place] [address] [facility] Start: 04-23-2023 End: 04-23-2023 Anesthesia consultation 04/23/2023 1:00 PM EST Anesthesia Event [facility] [address] [place] [address] Lalita Salazar, TICKET SORTER - EPIC AMBULATORY ANALYST [address] [place] [address] [facility] Start: 04-23-2023 End: 04-23-2023 Admission to same day surgery center [facility] Comment on above: ROBOTIC ASSISTED LAP AROSCOPIC PROSTATECTOMY, BILATERAL PELVIC LYMPH NODE DISECTION [90300 (CPT )] ROBOTIC ASSISTED LAP AROSCOPIC PROSTATECTOMY, BILATERAL PELVIC LYMPH NODE DISSECTION [35703 (CPT )] Start: 04-23-2023 End: 04-23-2023 Laps prostect retropubic rad w/nrv sparing robot [facility] Operating Room Start: 04-23-2023 End: 04-23-2023 Laps surg bilateral total pelvic lmphadectomy [facility] Operating Room Start: 04-23-2023 Subsequent hospital visit by physician [facility] Start: 04-18-2023 End: 04-18-2023 Admission to establishment 04/18/2023 3:30 PM EST Pre-Admission Testing [facility] Pre-Admit Testing [address] [place] [phone] [facility]Admit [facility] Start: 03-29-2023 End: 03-29-2023 Patient encounter procedure 03/29/2023 4:00 PM EST Office Visit [facility] [address] [place] [phone] Avtar Babin MD [address] [place] [address] [facility] Start: 03-26-2023 Advance Directive Discussion Advance Directive Discussion [facility] Start: 03-26-2023 Behavioral Health Screening Behavioral Health Screening [facility] Start: 03-26-2023 Depression Assessment Depression Ass essment [facility] Start: 03-26-2023 Medicare Advantage A nnual Wellness Visit Medicare Advantage Annual Wellness Visit [facility] Start: 03-12-2023 End: 03-12-2024 PSA, total and free PSA, total and free Lab Routine Prostate cancer (HCC) Expected: 03/12/2023 (Approximate), Expires: 03/12/2024 [facility] Work Phone: Comment on above: Expected: 03/12/2023 (Approximate), Expires: 03/12/2024 Start: 11-24-2022 Covid-19 Vaccine () Covid-19 Vaccine () [facility] Start: 11-24-2022 Influenza vaccination [facility] Start: 09-11-2022 Fluoroscopy guided injection of cervical spinal nerve root OR-Steroid Inj/Cer Thor/1st L [facility] Start: 09-11-2022 Injection using fluoroscopic guidance [facility] Start: 09-11-2022 Patient discharge [facility] Start: 08-04-2022 End: 08-04-2023 NM CARDIAC PERF STRESS/EXERCISE NM CARDIAC PERF STRESS/EXERCISE Radiology Routine Essential hypertension Paroxysmal atrial fibrillation (HCC) Encounter for screening for cardiovascular disorders Expected: 08/04/2022, Expires: 08/04/2023 [facility] Work Phone: Comment on above: Expected: 08/04/2022 , Expires: 08/04/2023 Start: 03-26-2022 ADVANCE DIRECTIVE DISCUSSION ADVANCE DIRECTIVE DISCUSSION [facility] Start: 03-26-2022 DEPRESSION ASSESSMENT DEPRESSION ASS ESSMENT [facility] Start: 11-24-2021 Influenza vaccination [facility] Start: 03-26-2021 ADVANCE DIRECTIVE DISCUSSION ADVANCE DIRECTIVE DISCUSSION [facility] Start: 03-18-2021 COVID-19 VACCINE (4 - Booster for Moderna series) COVID-19 VACCINE (4 - Booster for Moderna series) [facility] Start: 03-18-2021 COVID-19 VACCINE (4 - Moderna series) COVID-19 VACCINE (4 - Moderna series) [facility] Start: 04-03-2019 Shingrix Vaccine (2 of 2) Woo grix Vaccine (2 of 2) [facility] Start: 04-03-2019 Zoster Vaccines (2 of 2) Zoste r Vaccines (2 of 2) [facility] Start: 02-23-2017 Pneumococcal Vaccine : 65+ (2 - PCV) Pneumococcal Vaccine: 65+ (2 - PCV) [facility] Start: 2006 HEPATITIS B (1 of 3 - Risk 3-dose series) HEPATITIS B (1 of 3 - Risk 3-dose series) [facility] Start: 2006 Hepatitis B Vaccine (1 of 3 - Risk 3-dose series) Hepatitis B Vaccine (1 of 3 - Risk 3-dose series) [facility] Start: 2006 Hepatitis B Vaccines (1 of 3 - Risk 3-dose series) Hepatitis B Vaccines (1 of 3 - Risk 3-dose series) [facility] Start: 2006 RSV Immunization age d 60 or older (1 - 1-dose 60+ series) RSV Immunization aged 60 or older (1 - 1-dose 60+ series) [facility] Start: 2006 RSV Vaccine (1 - 1-d ose 60+ series) RSV Vaccine (1 - 1-dose 60+ series) [facility] Start: 1996 SHINGRIX VACCINE (1 of 2) WOO GRIX VACCINE (1 of 2) [facility] Start: 1991 COLOGUARD (FIT-DNA) COLOGUARD (FIT-D NA) [facility] Start: 1991 Colonoscopy COLONOSCOPY [facility] Start: 1991 COLORECTAL CANCER SCREENING COLORECTAL CANCER SCREENING [facility] Start: [address] COLONOGRAPHY [facility] Start: 1991 FECAL OCCULT BLOOD FECAL OCCULT BLOO D [facility] Start: 1991 SIGMOIDOSCOPY SIGMOIDOSCOPY [facility] Start: 1965 DTaP/Tdap/Td Vaccine s (1 - Tdap) DTaP/Tdap/Td Vaccines (1 - Tdap) [facility] Start: 1965 HEPATITIS A (1 of 2 - Risk 2-dose series) HEPATITIS A (1 of 2 - Risk 2-dose series) [facility] Start: 1965 Hepatitis A Vaccine (1 of 2 - Risk 2-dose series) Hepatitis A Vaccine (1 of 2 - Risk 2-dose series) [facility] Start: 1965 Hepatitis A Vaccines (1 of 2 - Risk 2-dose series) Hepatitis A Vaccines (1 of 2 - Risk 2-dose series) [facility] Start: 1965 HEPATITIS B (1 of 3 - Risk 3-dose series) HEPATITIS B (1 of 3 - Risk 3-dose series) [facility] Start: 1965 Urine microalbumin profile [facility] Start: 1964 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 Annual PCP Team Chronic Disease Visit [facility] Start: 1964 BP Controlled (<130/80) BP Controlle d (<130/80) [facility] Start: 1964 Depression Screening Depression Scre ening [facility] Start: 1964 HEPATITIS C SCREENING HEPATITIS C SC [facility] Start: 1964 Hepatitis C screening Hepatitis C Sc [facility] Start: 1958 Adult depression scr eening assessment DEPRESSION SCREENING [facility] Start: 1956 3 comp foot exam completed Diabetic Foot Exam [facility] Start: 1956 Diabetic foot examination Diabetic F oot Exam [facility] Start: 1956 Glaucoma screening Dilated Retinal E xam [facility] Start: 1956 Hepatitis B screening Urine Albumin:Creatinine Ratio [facility] Start: 1956 Hepatitis C antibody , confirmatory test Dilated Retinal Exam [facility] Start: 1952 Pneumococcal Vaccine : 65+ (1 - PCV) Pneumococcal Vaccine: 65+ (1 - PCV) [facility] Start: 1952 PNEUMOCOCCAL: 65+ (1 - PCV) PNEUMOCOCCAL: 65+ (1 - PCV) [facility] Start: 1951 COVID-19 VACCINE (#1) COVID-19 VACCI NE (#1) [facility] Start: 1947 HEPATITIS A (1 of 2 - Risk 2-dose series) HEPATITIS A (1 of 2 - Risk 2-dose series) [facility] Start: 1946 Medicare Advantage A nnual Wellness Visit (AWV) Medicare Advantage Annual Wellness Visit (AWV) [facility] End: 07-02-2023 Aerobic and Anaerobic Culture with Stain [facility] Work Phone: Comment on above: Once (Lab) for 1 Occ urrences starting 07/02/2023 until 07/02/2023 Bacteria identified in Unspecified specimen by Anaerobe culture Anaerobic culture Microbiology Routine 07/02/2023 8:56 AM EDT [facility] End: 04-26-2023 Bacteria identified in Urine by Culture [facility] Work Phone: Comment on above: Once (Lab) for 1 Occ urrences starting 04/26/2023 until 04/26/2023 Bacteria identified in Urine by Culture Urine culture Microbiology Routine Dysuria Ordered: 01/30/2024 [facility] Work Phone: Comment on above: Ordered: 01/30/2024 End: 07-19-2023 CT Abdomen and Pelvis W contrast [facility] Work Phone: Comment on above: Once for 1 Occurrenc es starting 07/19/2023 until 07/19/2023 CT Chest WO contrast CT CHEST WO IVCON Radiology Routine Lung nodules 06/01/2023 10:36 AM EST [facility] Work Phone: End: 03-31-2024 Ct thorax w/o contrast material CT CHEST WO IVCON Radiology Routine Lung nodules 1 Occurrences starting 03/02/2023 until 03/31/2024 [facility] Work Phone: Comment on above: 1 Occurrences starti ng 03/02/2023 until 03/31/2024 ECG COMPLETE ECG COMPLETE ECG Routine PAF (paroxysmal atrial fibrillation) (HCC) 02/06/2023 2:32 PM EST [facility] Work Phone: ECG COMPLETE ECG COMPLETE ECG Routine PAF (paroxysmal atrial fibrillation) (HCC) 04/30/2023 12:24 PM EST [facility] Work Phone: ECG COMPLETE ECG COMPLETE ECG Routine PAF (paroxysmal atrial fibrillation) (HCC) 05/14/2023 12:14 PM EST [facility] Work Phone: ECG COMPLETE ECG COMPLETE ECG Routine AV node dysfunction 07/15/2024 10:49 AM EDT [facility] Work Phone: End: 02-07-2024 Echocardiography ECHO Cardiology Routine Benign hypertension PAF (paroxysmal atrial fibrillation) (HCC) PVC's (premature ventricular contractions) 1 Occurrences starting 02/06/2023 until 02/07/2024 [facility] Work Phone: Comment on above: 1 Occurrences starti ng 02/06/2023 until 02/07/2024 OUTSIDE PROCEDURE SCAN OUTSIDE P ROCEDURE SCAN Procedures Ordered: 07/18/2023 [facility] Comment on above: Ordered: 07/18/2023 Patient referral [facility] Work Phone: PSA, total and free PSA, total a nd free Lab Routine Prostate cancer (HCC) 07/19/2023 2:28 PM EDT [facility] Tissue exam [facility] Work Phone: Comment on above: Release Upon Rosein g for 1 Occurrences starting 04/23/2023 End: 03-23-2022 Us abdominal real time w/image documentation US ABDOMEN COMPLETE Radiology Routine Hepatic cirrhosis, unspecified hepatic cirrhosis type, unspecified whether ascites present (HCC) 1 Occurrences starting 09/04/2021 until 03/23/2022 [facility] Work Phone: Comment on above: 1 Occurrences starti ng 09/04/2021 until 03/23/2022 [facility] Immunizations Immunization Date Immunization Notes Care Provider [facility] 01-28-2024 influenza virus vacc ine, unspecified formulation Ccf Provider [facility] 01-19-2023 influenza virus vacc ine, unspecified formulation Rem 220 [facility] 01-21-2021 COVID-19 original vaccine, full dose, monovalent (MODERNA) Nancy Potter MD Work Phone: [facility] 06-03-2020 COVID-19 original vaccine, full dose, monovalent (MODERNA) Nancy Potter MD Work Phone: [facility] 05-06-2020 COVID-19 original vaccine, full dose, monovalent (MODERNA) Nancy Potter MD Work Phone: [facility] 02-24-2016 influenza virus vacc ine, unspecified formulation Nancy Potter MD Work Phone: [facility] Payers Date Payer Category Payer Self-pay [id number] 2023 Medicare HMO [employer] SECURE [id number] 2023 Unknown [employer] ARE [id number] 2023-Present [address] [place] [address] Commercial [id number] 2021 [place] [id number] 2021 Medicare [id number] 2021 Medicare [id number] 1945 Unknown [id number] [id number]. 2. 1945 Unknown [id number] 2.16.840.1.826938.3.579. 2. 1945 Unknown [id number] 2.16.840.1.856581.3.579. 2. 1945 Unknown [id number] 2.16.840.1.070526.3.579. 2. 1945 Unknown [id number] 2.16.840.1.091845.3.579. 2. 1945 Unknown [id number] 2.16.840.1.663896.3.579. 2. 1945 Unknown [id number] 2.16.840.1.681167.3.579. 2. 1945 Unknown [id number] 2.16.840.1.830482.3.579. 2. 1945 Unknown [id number] 2.16.840.1.614228.3.579. 2.627 1945 Unknown [id number] 2.16.840.1.393428.3.579. 2.627 1946 Unknown [id number] 2.16.840.1.457609.3.579. 2.627 1946 Unknown [id number] 2.16.840.1.558218.3.579. 2.627 1945 Unknown [id number] 2.16.840.1.711330.3.579. 2.627 Unknown [id number]. 2.462 Social History Date Type Detail Facility Start: 07-05-2022 End: 09-07-2022 Tobacco smoking status RIIS Tobacco smoking consumption unknown [facility] Start: 1945 Sex Assigned At Male [facility] Start: 09-09-2020 End: 10-07-2024 Tobacco smoking status Never smoked tobacco (finding) [facility] Start: 12-06-2021 End: 12-16-2021 Exposure to SARS-CoV-2 (event) Not sure [facility] Start: 07-05-2022 End: 02-06-2023 Tobacco use and exposure Smokeless tobacco non-user [facility] Work Phone: Start: 06-19-2018 Non-smoker [employer] [facility] Start: 07-05-2022 End: 09-25-2022 History of Social function [facility] Start: 07-05-2022 End: 09-25-2022 Tobacco use panel [facility] National Score (1-10 0), lower number is lower risk 69 [facility] Start: 03-04-2021 Gender identity Identifies as male gender (finding) [facility] Start: 03-04-2021 Sexual orientation Heterosexual (fin mukund) [facility] Start: 02-06-2023 End: 10-06-2024 Alcohol intake Lifetime non-drinker (finding) [facility] Start: 1945 Sex Assigned At Not on file S [facility] Start: 04-23-2023 End: 10-07-2024 Alcohol intake Ex-drinker (finding) [facility] Start: 04-18-2023 Alcohol Comment occ Polly humphreys Has the [employer], [employer] [facility], or water company threatened to shut off services in your home in past 12Mo No [facility] Do you belong to any clubs or organizations such as mandaeism groups, unions, fraternal or athletic groups, or school groups? Yes [facility] Are you now , , , , never or living with a partner? [facility] How often to you hav e a drink containing alcohol? Never [facility] Do you feel stress - tense, restless, nervous, or anxious, or unable to sleep at night because your mind is troubled all the time - these days [OSQ] Not at all [facility] (I/We) worried wheth er (my/our) food would run out before (I/we) got money to buy more. Never true [facility] Start: 10-24-2021 Sex Male (finding) [facility] Start: 03-10-2024 Tobacco smoking stat [facility] Occasional tobacco smoker [facility] History of tobacco use Cigarette Smoker S [facility] NEGATED: Highlighted rowStart: NINF History of tobacco use Passive smoker [facility] Medical Equipment Procedure Code Equipment Code Equipment Origin al Text Equipment Identifier Dates Ra Lead Biotronik- 4 [id number] Start: 04-04-2023 Solia S 60 [id number] Start: 04-04-2023 Solia S 53 [id number] Start: 04-04-2023 [id number] Start: 04-04-2023 Dual Pacer Biotronik- 4 [id number] Start: 04-04-2023 Comment on above: Description: Dual pa cer (Biotronik) LBB area pacing. Sick sinus syndrome, AV node dysfunction, paroxysmal A-fib, LVEF 64% by echo, BMI 31, PVCs, Xarelto anticoagulation. Pacer by Dr. Acuna at [facility]. Initial dual pacer. Description: Dual pa cer (Biotronik) LBB area pacing. Sick sinus syndrome, AV node dysfunction, paroxysmal A-fib, LVEF 64% by echo, BMI 31, PVCs, Xarelto anticoagulation. Pacer by Dr. Acuna at [facility].Initial dual pacer. Description: Dual pa cer (Biotronik) LBB area pacing. Sick sinus syndrome, AV node dysfunction, paroxysmal A-fib, LVEF 64% by echo, BMI 31, PVCs, Xarelto anticoagulation. Pacer by Dr. Acuna at [facility]. Initial dual pacer. Edora 8 Judy [id number] Start: 04-04-2023 Advance Xp Male Sling System [id number] Start: 03-10-2024 Rear Tip Medical Record Retrieval Specialist [id number] Start: 03-10-2024 Inflatable Penil e Prosthesis [id number] Start: 03-10-2024 Prosthesis Ams 7 00 Sphrcl Rsrv - [id number] Start: 03-10-2024 Kit Accessory Am s 700 Penile - [id number] Start: 03-10-2024 Goals Date Patient Goal Desired Activity /State Personal health goal Functional Status Date Assessment Result Facility 04-06-2023 Are you deaf, or do you have serious difficulty hearing No 04/06/2023 2:10 PM Martin Macias, JESENIA No [facility] 04-06-2023 Are you blind, or do you have serious difficulty seeing, even when wearing glasses No 04/06/2023 2:10 PM Martin Macias, JESENIA No [facility] 04-06-2023 Do you have serious difficulty walking or climbing stairs No 04/06/2023 2:10 PM Martin Macias, JESENIA No [facility] 04-06-2023 Do you have difficul ty dressing or bathing No 04/06/2023 2:10 PM Martin Macias, JESENIA No [facility] 04-06-2023 Because of a physica l, mental, or emotional condition, do you have difficulty doing errands alone such as visiting a physician's office or shopping No 04/06/2023 2:10 PM Martin Macias, JESENIA No [facility] Mental Status Date Assessment Result Facility 10-13-2024 Cognitive function Voice/Name [facility] Work Phone: 04-06-2023 Because of a physica l, mental, or emotional condition, do you have serious difficulty concentrating, remembering, or making decisions No 04/06/2023 2:10 PM Martin Macias, JESENIA No [facility] 09-11-2022 Cognitive function Level Of Cons ciousness Drowsy;Responds to vocal stimuli [facility] Work Phone: Clinical Notes 07-12-2021 to 10-13-2024 Telephone Encounter - Janelle Chaudhary LPN - 10/07/2024 3:01 PM EDTTelephone Encounter - Janelel Chaudhary LPN - 10/07/2024 3:01 PM EDTTelephone Encounter - Brunilda Cruz APRN.CNP - 10/07/2024 3:00 PM EDT Note Date & Type Note Facility 10-13-2024 Procedure note [facility] 10-13-2024 Consult note [facility] 10-13-2024 Consult note [facility] 10-07-2024 Telephone encounter Note Will do. [facility] 10-07-2024 Miscellaneous Notes Will do. Check again in 1 week and let me know if he still can fit. Patient went into AFIB on October 03, 2024. He remains there. documented in this encounter [facility] 10-07-2024 Telephone encounter Note Check again in 1 week and let me know if he still can fit. [facility] 10-07-2024 Telephone encounter Note Patient went into AFIB on October 03, 2024. He remains there. T [facility] 10-07-2024 History of Present illness Narrative Images from the original note were not included. Avtar Babin MD 10/07/2024 at 11:39 AM Office follow up PATIENT NAME: Cade Islas DATE OF : 1945 TODAY'S DATE: 10/07/2024 CHIEF COMPLAINT: Chief Complaint Patient presents with Prostate Cancer Follow-up Subjective: Mr. Islas is a 79 y.o. male who presents to the office for follow up of prostate cancer He is very pleased with IPP Male sling has not been working well, continence has been getting worse, now using 4 pads daily Continence is reasonable when he is sitting down Review of Systems Gastrointestinal: Negative for abdominal distention and abdominal pain. Genitourinary: Negative for difficulty urinating and frequency. Past Medical History: Medical History[1] Past Surgical History: Surgical History[2] Allergies: Patient has no known allergies. Social History: Social History Socioeconomic History Marital status: Spouse name: Not on file Number of children: Not on file Years of education: Not on file Highest education level: Not on file Occupational History Not on file Tobacco Use Smoking status: Some Days Types: Cigarettes Smokeless tobacco: Never Vaping Use Vaping status: Never Used Substance and Sexual Activity Alcohol use: Not Currently Drug use: Never Sexual activity: Yes Partners: Female Other Topics Concern Not on file Social History Narrative Not on file Social Drivers of Health Financial Resource Strain: Low Risk (06/30/2023) Overall Financial Resource Strain (CARDIA) Difficulty of Paying Living Expenses: Not hard at all Food Insecurity: No Food Insecurity (06/30/2023) Hunger Vital Sign Worried About Running Out of Food in the Last Year: Never true Ran Out of Food in the Last Year: Never true Transportation Needs: No Transportation Needs (06/30/2023) PRAPARE - Transportation Lack of Transportation (Medical): No Lack of Transportation (Non-Medical): No Physical Activity: Insufficiently Active (06/30/2023) Exercise Vital Sign Days of Exercise per Week: 5 days Minutes of Exercise per Session: 20 min Stress: No Stress Concern Present (06/30/2023) [place] [employer] - Occupational Stress Questionnaire Feeling of Stress : Not at all Social Connections: Unknown (06/30/2023) Social Connection and Isolation Panel [NHANES] Frequency of Communication with Friends and Family: More than three times a week Frequency of Social Gatherings with Friends and Family: More than three times a week Attends [employer]: Not on file Active Member of Clubs or Organizations: Yes Attends Club or Organization Meetings: 1 to 4 times per year Marital Status: Intimate Partner Violence: Not At Risk (06/30/2023) Humiliation, Afraid, Rape, and Kick questionnaire Fear of Current or Ex-Partner: No Emotionally Abused: No Physically Abused: No Sexually Abused: No Housing Stability: Low Risk (06/30/2023) Housing Stability Vital Sign Unable to Pay for Housing in the Last Year: No Number of Places Lived in the Last Year: 1 Unstable Housing in the Last Year: No Family History: Medications Prior to Admission medications Medication Sig Start Date End Date Taking? Authorizing Provider amitriptyline (Elavil) 100 MG tablet Take 100 mg by mouth Nightly. 03/02/23 Yes Historical Provider, amLODIPine (Norvasc) 5 MG tablet 10/09/22 Yes Historical Provider, atorvastatin (Lipitor) 10 MG tablet 03/09/23 Yes Historical Provider, B Complex Vitamins (vitamin B complex) tablet Take by mouth. Yes Historical Provider, cholecalciferol (Vitamin D-3) 125 MCG (5000 UT) capsule Take 1 capsule by mouth Every 24 hours. Yes Historical Provider, fluticasone (Flonase) 50 MCG/ACT nasal spray 08/03/22 Yes Historical Provider, gabapentin (Neurontin) 600 MG tablet Take 600 mg by mouth 3 times daily. 02/19/23 Yes Historical Provider, HYDROcodone-acetaminophen ([place]) 10-325 MG tablet Take 1 tablet by mouth every 6 hours as needed. Yes Historical Provider, levothyroxine (Synthroid, Levoxyl) 50 MCG tablet 12/11/22 Yes Historical Provider, lisinopril 40 MG tablet 03/27/23 Yes Historical Provider, potassium chloride ER (Micro-K) 10 MEQ ER capsule 01/14/23 Yes Historical Provider, Semaglutide, 2 MG/DOSE, (Ozempic, 2 MG/DOSE,) 8 MG/3ML solution pen-injector Inject under the skin. Wednesdays05/24/22 Yes Historical Provider, sotalol (Betapace) 240 MG tablet every 12 hours. 04/06/23 Yes Historical Provider, Xarelto 20 MG tablet Take 1 tablet (20 mg) by mouth daily. Do not start before March 15, 2024. 03/15/24 Yes Trudy Abdi MD metFORMIN XR (Glucophage-XR) 500 MG 24 hr tablet Take 500 mg by mouth daily. Patient not taking: Reported on 04/17/2024 03/20/23 Historical Provider, Vascepa 1 g capsule 12/11/22 Historical Provider, Vitals: BP 107/67 Pulse 86 Ht 5' 8 (1.727 m) Wt 205 lb (93 kg) BMI 31.17 kg/m Physical Exam General: alert, appears stated age, and cooperative Abdomen: soft and nondistended Back: straight, CVA tenderness absent : defer exam Labs: WBC Lab Results Component Value Date WBC 5.7 02/28/2024 BMP Lab Results Component Value Date NA 139 07/05/2023 K 3.8 07/05/2023 CL 108 (H) 07/05/2023 CO2 22 07/05/2023 BUN 12 07/05/2023 CREATININE 0.89 07/05/2023 GLUCOSE 118 (H) 07/05/2023 CALCIUM 9.1 07/05/2023 PSA No results found for: PSA UA Lab Results Component Value Date COLORU Yellow 04/26/2023 GLUCOSEU Normal 04/26/2023 UROBILINOGEN Normal 04/26/2023 Review: PSA 10/02/24 0.07 02/04/2024 0.05 11/07/2023 0.03 07/19/23 <0.1 05/14/23 0.11 Impression/Plan Diagnoses and all orders for this visit: Prostate cancer (HCC) Stress incontinence, male Erectile dysfunction after radical prostatectomy Post prostatectomy March 2023 Psa remains very low, stable Persistently low psa values can be seen from psa producing cells in urethra Now 1.5 years post prostatectomy Doing well with IPP He continues to have incontinence after male sling, he is interested in AUS. Follow up with Dr Linda coming up to discuss Follow up in about 6 months (around 04/09/2025) for psa. Avtar Babin MD 10/07/24 11:39 AM [1] Past Medical History: Diagnosis Date Arrhythmia Arthritis Benign prostatic hyperplasia 2022 Chronic pain disorder Diabetes (HCC) Dysphagia Elevated PSA 2022 GERD (gastroesophageal reflux disease) History of chronic atrial fibrillation HL (hearing loss) 1965 Left ear Hyperlipidemia Hypertension Hypothyroidism Pacemaker Prostate cancer (HCC) 2022 Thrombocytopenia (HCC) [2] Past Surgical History: Procedure Laterality Date ATRIAL CARDIAC PACEMAKER INSERTION CARPAL TUNNEL RELEASE Bilateral CATARACT EXTRACTION CHOLECYSTECTOMY INSERT / REMOVE / REPLACE PROSTHESIS PENILE 03/10/2024 PACEMAKER (HISTORICAL) PROSTATE SURGERY 2023 SPINAL CORD STIMULATOR IMPLANT TRIGGER FINGER RELEASE URETHRAL SLING MALE 03/10/2024 documented in this encounter [facility] 07-21-2024 Telephone encounter Note Pts scheduled for 10/28/24 at 3:40pm with Dr Linda at [facility]. will check with pt if he wants a pelvic floor PT order or not and let us know. Also gave message again from Dr Linda about keeping track of the leakage. [facility] 07-21-2024 Miscellaneous Notes Pts scheduled for 10/28/24 at 3:40pm with Dr Linda at [facility]. will check with pt if he wants a pelvic floor PT order or not and let us know. Also gave message again from Dr Linda about keeping track of the leakage. Name of caller: Nicole Contact phone number: [phone] Relationship to Patient: spouse/SO Provider: DO. Linda Practice[place] [facility] Chief Complaint/Reason for Call: Nicole states that she would like to schedule the patient an appointment for October. Please review. Best time of day caller can be reached: any Patient advised that office/PCP has 24-48 business hours to return their call: Yes Called pt and LMR with Dr Linda message - left word for word and also she would be on leave for a few months. Happy to get him scheduled for early October to see her when she is back. Also to please call us and let me know if he would like a referral to pelvic floor PT and Dr Linda will write that order. Please advise patient that I can meet with him in the office in October to discuss options for continued leakage Advise him I would like him to continue Kegels, and if he would like to go to pelvic floor therapy we can send him to PFPT in the meantime I would like him to keep tract of leakage (pads per day, types of pads, when th leakage occurs, etc) If he is agreeable I will meet with him in October Name of caller: Nicole Contact phone number: [phone] Relationship to Patient: spouse/SO Provider: Dr. Linda Practice: Urology Chief Complaint/Reason for Call: Nicole called advising on when the next surgery will be since the sling isn't working for the patient. Nicole advised that provider mentioned there might be another surgery that could help patient. Please call Nicole back and advise. Best time of day caller can be reached: any Patient advised that office/PCP has 24-48 business hours to return their call: Yes documented in this encounter [facility] 07-21-2024 Telephone encounter Note Name of caller: Nicole Contact phone number: [phone] Relationship to Patient: spouse/SO Provider: DO. Linda Practice: [facility] Chief Complaint/Reason for Call: Nicole states that she would like to schedule the patient an appointment for October. Please review. Best time of day caller can be reached: any Patient advised that office/PCP has 24-48 business hours to return their call: Yes [facility] 07-21-2024 Telephone encounter Note Called pt and LMR with Dr Linda message - left word for word and also she would be on leave for a few months. Happy to get him scheduled for early October to see her when she is back. Also to please call us and let me know if he would like a referral to pelvic floor PT and Dr Linda will write that order. [facility] 07-20-2024 Telephone encounter Note Please advise patient that I can meet with him in the office in October to discuss options for continued leakage Advise him I would like him to continue Kegels, and if he would like to go to pelvic floor therapy we can send him to PFPT in the meantime I would like him to keep tract of leakage (pads per day, types of pads, when th leakage occurs, etc) If he is agreeable I will meet with him in October [facility] 07-15-2024 Telephone encounter Note Name of caller: Nicole Contact phone number: [phone] Relationship to Patient: spouse/SO Provider: Dr. Linda Practice: Urology Chief Complaint/Reason for Call: Nicole called advising on when the next surgery will be since the sling isn't working for the patient. Nicole advised that provider mentioned there might be another surgery that could help patient. Please call Nicole back and advise. Best time of day caller can be reached: any Patient advised that office/PCP has 24-48 business hours to return their call: Yes [facility] 07-15-2024 History of Present illness Narrative [facility] Nir Le MD SUBJECTIVE: Cade Islas is a 79 year old male who is here today for a follow-up visit. The patient is doing well from the cardiovascular standpoint. He denies chest pain, shortness of breath, palpitations, PND, orthopnea, syncope, near-syncope, or edema. 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 Sick sinus syndrome, AV node dysfunction, paroxysmal A-fib, LVEF 64% by echo, BMI 31, PVCs, Xarelto anticoagulation. Pacer by Dr. Acuna at [facility]. PAF (paroxysmal atrial fibrillation) ([facility]) Polyneuropathy Prostate CA ([facility]) PVC's (premature ventricular contractions) Sinus bradycardia PAST SURGICAL HISTORY Procedure Laterality Date F TRIAL SPINAL CORD STIMULATOR FORCEPS ESOPHAGEAL BIOPSY PERFORMED HAND LEFT OP SURGERY x5 HAND RIGHT OP SURGERY x 4 PACEMAKER DUAL Left 04/04/2023 Dual pacer (Biotronik) LBB area pacing. Sick sinus syndrome, AV node dysfunction, paroxysmal A-fib, LVEF 64% by echo, BMI 31, PVCs, Xarelto anticoagulation. Pacer by Dr. Acuna at [facility]. PAST SURGICAL HISTORY OF 04/24/2023 removal of Prostate PROSTATE BIOPSY REMOVAL GALLBLADDER 01/2023 FAMILY HISTORY Problem Relation Age of Onset No Known Problems Brother Cancer Maternal Grandmother SOCIAL HISTORY: Social History Tobacco Use Smoking status: Never Passive exposure: Never Smokeless tobacco: Never Vaping Use Vaping status: Never Used Substance Use Topics Alcohol use: Never Drug use: Never ALLERGIES: Patient has no known allergies. CURRENT MEDICATIONS: Current Outpatient Medications Medication Sig amLODIPine (NORVASC) 5 mg tablet Take 5 mg by mouth once daily. rivaroxaban (XARELTO) 20 mg tablet Take 1 tablet by mouth daily with dinner. sotalol (BETAPACE) 240 mg tablet Take 1 tablet by mouth every 12 hours. HYDROcodone-Acetaminophen (NORCO) 7.5-325 mg per tablet Take 1 tablet by mouth every 6 hours as needed. Cholecalciferol, Vitamin D3, 125 mcg/mL (5,000 unit/mL) drop Take 5,000 Units by mouth every morning. semaglutide (OZEMPIC) 2 mg/dose (8 mg/3 mL) pen injector Inject 2 mg subcutaneously one time a week. Takes on Wednesdays VITAMIN B COMPLEX ORAL Take 1 tablet by mouth once daily. amitriptyline (ELAVIL) 100 mg tablet Take 100 mg by mouth daily at bedtime. atorvastatin (LIPITOR) 10 mg tablet Take 10 mg by mouth daily at bedtime. fluticasone (FLONASE) 50 mcg/actuation nasal spray Use 1 [place] in each nostril as needed. gabapentin (NEURONTIN) 600 mg tablet Take 600 mg by mouth three times a day. levothyroxine (SYNTHROID) 50 mcg tablet Take 50 mcg by mouth daily before breakfast. lisinopril (ZESTRIL) 40 mg tablet Take 40 mg by mouth two times a day. metFORMIN (GLUCOPHAGE) 500 mg tablet Take 1,000 mg by mouth two times a day with meals. potassium chloride SR (MICRO-K) 10 mEq CR capsule Take 10 mEq by mouth every morning. No current facility-administered medications for this visit. Review of Systems Constitutional: Negative for activity change and fever. Respiratory: Negative for apnea, cough, chest tightness, shortness of breath, wheezing and stridor. Cardiovascular: Negative for chest pain, palpitations and leg swelling. Gastrointestinal: Negative for abdominal distention, diarrhea and vomiting. Musculoskeletal: Negative for joint swelling, neck pain and neck stiffness. Skin: Negative for color change, pallor and rash. Neurological: Negative for dizziness, syncope, weakness, light-headedness and numbness. Hematological: Does not bruise/bleed easily. Psychiatric/Behavioral: Negative for agitation, behavioral problems and confusion. The patient is not nervous/anxious. All other systems reviewed and are negative. PHYSICAL EXAMINATION: 07/15/24 1057 BP: 112/76 BP Site: Left Arm BP Position: Sitting Pulse: 72 Weight: 97.1 kg (214 lb) Height: 172.7 cm (5' 8) Last 3 Encounter BP Readings: Date: BP: 01/07/2024 112/72 06/29/2023 142/67 05/14/2023 122/72 Last 3 Encounter Pulse Readings: Date: Pulse: 01/07/2024 60 06/29/2023 67 05/14/2023 72 Last 3 Encounter Wt Readings: Date: Wt: 01/07/2024 94.3 kg (208 lb) 06/29/2023 93.4 kg (206 lb) 04/17/2023 93.4 kg (206 lb) Potassium Date Value 04/22/2024 4.0 mmol/L 05/07/2021 4.1 MMOL/L Sodium Date Value 04/22/2024 139 mmol/L 05/07/2021 139 MMOL/L Magnesium Date Value 04/06/2023 2.0 mg/dL 05/07/2021 2.3 MG/DL Creatinine Date Value 04/22/2024 1.06 mg/dL 05/07/2021 1.09 MG/DL BUN Date Value 04/22/2024 19 mg/dL 05/07/2021 28 MG/DL Glucose Date Value 04/22/2024 98 mg/dL 05/07/2021 130 MG/DL INR (no units) Date Value 07/03/2024 1.1 10/25/2020 1.05 TSH Date Value 04/22/2024 2.731 mIU/L 05/07/2021 1.588 UIU/ML Physical Exam Vitals and nursing note reviewed. Constitutional: General: He is not in acute distress. Appearance: Normal appearance. He is not toxic-appearing. HENT: Head: Normocephalic and atraumatic. Nose: Nose normal. Mouth/Throat: Mouth: Mucous membranes are moist. Neck: Vascular: No carotid bruit. Cardiovascular: Rate and Rhythm: Normal rate and regular rhythm. Pulses: Normal pulses. Heart sounds: Normal heart sounds. No murmur heard. No friction rub. No gallop. Pulmonary: Effort: Pulmonary effort is normal. No respiratory distress. Breath sounds: Normal breath sounds. No stridor. No wheezing, rhonchi or rales. Chest: Chest wall: No tenderness. Abdominal: General: Abdomen is flat. There is no distension. Palpations: Abdomen is soft. There is no mass. Tenderness: There is no abdominal tenderness. Musculoskeletal: General: No swelling. Cervical back: Normal range of motion. No muscular tenderness. Right lower leg: No edema. Left lower leg: No edema. Skin: General: Skin is warm and dry. Capillary Refill: Capillary refill takes less than 2 seconds. Coloration: Skin is not jaundiced or pale. Findings: No bruising or rash. Neurological: General: No focal deficit present. Mental Status: He is alert and oriented to person, place, and time. Mental status is at baseline. Motor: No weakness. Gait: Gait normal. Psychiatric: Mood and Affect: Mood normal. Behavior: Behavior normal. Thought Content: Thought content normal. Judgment: Judgment normal. Diagnostic results: Pacemaker check: Summary: Normal device function. Normal pacing and sensing threshold. Battery: 8 yrs 4 months until RADHA. Histogram: ok. Atrial episodes: 25 AFIB events, longest was 1 day, 4% of the time. Ventricular episodes: none. Changes: per auto threshold testing. EKG: Normal sinus rhythm, 80 bpm, AV paced ASSESSMENT/PLAN: 1. Benign hypertension - ICD9: 401.1, ICD10: I10 (primary diagnosis) Target BP 130/80 or less. The pt is on chronic medications. Blood pressure controlled on current medications. 2. Mixed hyperlipidemia - ICD9: 272.2, ICD10: E78.2 Patient is on atorvastatin 10 mg daily. Managed by primary care physician. 3. PAF (paroxysmal atrial fibrillation) (HCC) - ICD9: 427.31, ICD10: I48.0 Patient has a history of atrial fibrillation. Presently on sotalol 240 mg twice daily. A-fib burden by pacemaker interrogation is 4% of the time. We will plan to continue same medications and monitor A-fib burden. 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 The pt is not complaining of any signs and symptoms of bleeding. The patient was instructed to call with any problems. 5. Pacemaker - ICD9: V45.01, ICD10: Z95.0 The patient has a dual-chamber pacemaker. Normal function by today's interrogation. We will plan to monitor the device by every 3-month checks and as needed. 6. AV node dysfunction - ICD9: 426.89, ICD10: I45.89 Chronic, the patient has a dual-chamber pacemaker. Stable. 7. Sinus bradycardia - ICD9: 427.89, ICD10: R00.1 Chronic, the patient has a dual-chamber pacemaker. Stable. 8. Obesity (BMI 30.0-34.9) - ICD9: 278.00, ICD10: E66.811 Chronic, BMI 31. Behavioral intervention. Stable. documented in this encounter [facility] 07-15-2024 Note HNO ID: [id number] Author: BRUNILDA CRUZ APRN.EPIC AMBULATORY ANALYST Service: ? Author Type: Nurse Practitioner Type: Progress Notes Filed: 07/15/2024 11:10 Note Text: [facility] Nir Le MD SUBJECTIVE: Cade Islas is a 79 year old male who is here today for a follow-up visit. The patient is doing well from the cardiovascular standpoint. He denies chest pain, shortness of breath, palpitations, PND, orthopnea, syncope, near-syncope, or edema. PAST MEDICAL HISTORY Diagnosis Date Anxiety AV node dysfunction Benign hypertension BPH (benign prostatic hyperplasia) Chronic pain CKD (chronic kidney disease) stage 2, GFR 60-89 ml/min DM II (diabetes mellitus, type II) ([facility]) H/O echocardiogram 02/21/2023 EF 64? 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 Sick sinus syndrome, AV node dysfunction, paroxysmal A-fib, LVEF 64% by echo, BMI 31, PVCs, Xarelto anticoagulation. Pacer by Dr. Acuna at [facility]. PAF (paroxysmal atrial fibrillation) ([facility]) Polyneuropathy Prostate CA ([facility]) PVC's (premature ventricular contractions) Sinus bradycardia PAST SURGICAL HISTORY Procedure Laterality Date F TRIAL SPINAL CORD STIMULATOR FORCEPS ESOPHAGEAL BIOPSY PERFORMED HAND LEFT OP SURGERY x5 HAND RIGHT OP SURGERY x 4 PACEMAKER DUAL Left 04/04/2023 Dual pacer (Biotronik) LBB area pacing. Sick sinus syndrome, AV node dysfunction, paroxysmal A-fib, LVEF 64% by echo, BMI 31, PVCs, Xarelto anticoagulation. Pacer by Dr. Acuna at [facility]. PAST SURGICAL HISTORY OF 04/24/2023 removal of Prostate PROSTATE BIOPSY REMOVAL GALLBLADDER 01/2023 FAMILY HISTORY Problem Relation Age of Onset No Known Problems Brother Cancer Maternal Grandmother SOCIAL HISTORY: Social History Tobacco Use Smoking status: Never Passive exposure: Never Smokeless tobacco: Never Vaping Use Vaping status: Never Used Substance Use Topics Alcohol use: Never Drug use: Never ALLERGIES: Patient has no known allergies. CURRENT MEDICATIONS: Current Outpatient Medications Medication Sig amLODIPine (NORVASC) 5 mg tablet Take 5 mg by mouth once daily. rivaroxaban (XARELTO) 20 mg tablet Take 1 tablet by mouth daily with dinner. sotalol (BETAPACE) 240 mg tablet Take 1 tablet by mouth every 12 hours. HYDROcodone-Acetaminophen (NORCO) 7.5-325 mg per tablet Take 1 tablet by mouth every 6 hours as needed. Cholecalciferol, Vitamin D3, 125 mcg/mL (5,000 unit/mL) drop Take 5,000 Units by mouth every morning. semaglutide (OZEMPIC) 2 mg/dose (8 mg/3 mL) pen injector Inject 2 mg subcutaneously one time a week. Takes on Wednesdays VITAMIN B COMPLEX ORAL Take 1 tablet by mouth once daily. amitriptyline (ELAVIL) 100 mg tablet Take 100 mg by mouth daily at bedtime. atorvastatin (LIPITOR) 10 mg tablet Take 10 mg by mouth daily at bedtime. fluticasone (FLONASE) 50 mcg/actuation nasal spray Use 1 [place] in each nostril as needed. gabapentin (NEURONTIN) 600 mg tablet Take 600 mg by mouth three times a day. levothyroxine (SYNTHROID) 50 mcg tablet Take 50 mcg by mouth daily before breakfast. lisinopril (ZESTRIL) 40 mg tablet Take 40 mg by mouth two times a day. metFORMIN (GLUCOPHAGE) 500 mg tablet Take 1,000 mg by mouth two times a day with meals. potassium chloride SR (MICRO-K) 10 mEq CR capsule Take 10 mEq by mouth every morning. No current facility-administered medications for this visit. Review of Systems Constitutional: Negative for activity change and fever. Respiratory: Negative for apnea, cough, chest tightness, shortness of breath, wheezing and stridor. Cardiovascular: Negative for chest pain, palpitations and leg swelling. Gastrointestinal: Negative for abdominal distention, diarrhea and vomiting. Musculoskeletal: Negative for joint swelling, neck pain and neck stiffness. Skin: Negative for color change, pallor and rash. Neurological: Negative for dizziness, syncope, weakness, light-headedness and numbness. Hematological: Does not bruise/bleed easily. Psychiatric/Behavioral: Negative for agitation, behavioral problems and confusion. The patient is not nervous/anxious. All other systems reviewed and are negative. PHYSICAL EXAMINATION: 07/15/24 1057 BP: 112/76 BP Site: Left Arm BP Position: Sitting Pulse: 72 Weight: 97.1 kg (214 lb) Height: 172.7 cm (5' 8) Last 3 Encounter BP Readings: Date: BP: 01/07/2024 112/72 06/29/2023 142/67 05/14/2023 122/72 Last 3 Encounter Pulse Readings: Date: Pulse: 01/07/2024 60 06/29/2023 67 05/14/2023 72 Last 3 Encounter Wt Readings: Date: Wt: 01/07/2024 94.3 kg (208 lb) 06/29/2023 93.4 kg (206 lb) 04/17/2023 93.4 kg (206 lb) (more content not included)... [facility] 07-15-2024 Note HNO ID: [id number] Author: JANELLE CHAUDHARY LPN Service: ? Author Type: LICENSED NURSE Type: Progress Notes Filed: 07/18/2024 09:15 Note Text: Dual Pacer Report In Office Check Date: July 15, 2024 Time: 8:58 AM Devices: Implants Lead Ra Lead CAN [employer]-04/04/2023 - Implanted Heart Model/Cat number: [id number] Swift [id number] Serial number: [id number] Reservations Agent: [employer] Lot number: LEFT AXILLARY VEIN Size: Right Atrial Pacing Lead As of 04/04/2023 Status: Implanted Left Bundle Branch Area Ventricular Lead Biotronik-04/04/2023 - Implanted Heart Model/Cat number: REBECA Swift [id number] Serial number: [id number] Reservations Agent: [employer] Lot number: LEFT AXILLARY VEIN Size: Left Bundle Branch Area Ventricular Lead As of 10/03/2023 Status: Implanted Pacemaker Dual Pacer CAN [employer]-04/04/2023 - Implanted (Left) Chest Wall Model/Cat number: [id number] [id number]-T [id number] Serial number: [id number] Reservations Agent: [employer] Lot number: INITIAL DUAL PACER; LBB AREA PACING Size: Sick sinus syndrome, AV node dysfunction, paroxysmal A-fib, LVEF 64% by echo, BMI 31, PVCs, Xarelto anticoagulation. As of 01/07/2024 Status: Implanted Symptoms: None Underlying Rhythm: Sinus in the 40's Last Interrogation Date: 01-07-2024 Estimated Remaining Longevity: 8 yrs 4 months until RADHA Dependency: No Interrogation Performed by: Janelle Chaudhary LPN Programming Parameters Mode: DDD-CLS Lower Rate: 60 Upper Track: 140 Upper Sensor: 130 Paced AV Delay: 220 Sensed AV Delay: 180 Atrial Refractory: ind Mode Switch: 160 Additional Device Information -VS percent: 0% -PRODUCT TRANSFER PUMPER percent: 0% AP-VS percent: 59% AP-PRODUCT TRANSFER PUMPER percent: 36% Atrial: Threshold: 0.5 V @ 0.4 msec Programmed amp/PW: 1.5 V @ 0.4 msec P wave: 2.6 mV Sensitivity: auto Impedance: 312 ohms Pacing percent: 83% Right Ventricle: Threshold: 0.8 V @ 0.4 msec Programmed amp/PW: 1.3 V @ 0.4 msec R wave: 11.0 mV Sensitivity: auto Impedance: 409 ohms RV pacin% Episodes: Atrial Fib count: 25 Atrial burden: 4% Mode Switch episodes: 7,763 Ventricular Fibrillation count: 0 Fast Ventricular Tachycardia count: 0 Slow Ventricular Tachycardia: 0 NSVT: 0 Summary: Normal device function. Normal pacing and sensing threshold. Battery: 8 yrs 4 months until RADHA. Histogram: ok. Atrial episodes: 25 AFIB events, longest was 1 day, 4% of the time. Ventricular episodes: none. Changes: per auto threshold testing. Follow up: 3 month remote, 6 months device check and provider appointment. View External Cardiology - Correctional Nurse Strips [ID [id number]] [facility] 07-03-2024 History of Present illness Narrative Radiology Service Progress Note PATIENT NAME: Cade Islas DATE OF SERVICE: July 03, 2024 TIME: 9:06 AM PATIENT IDENTITY VERIFICATION COMPLETED USING TWO (2) IDENTIFIERS: Name and Date of confirmed by patient verbally. FALL SCREENING: Has the patient had 2 falls in the last year or 1 fall with injury or currently using an Ambulatory Assistive Device (Walker, Cane, Wheelchair, Crutches, etc.)? No PATIENT GENDER DATA: Assigned male at PATIENT RELEVANT IMPLANT DATA REVIEWED: Yes PATIENT PRESENTS WITH AN IMPLANTABLE OR ATTACHED CSR TECHNICIAN: No RADIOLOGY DEPARTMENT: General X-ray: Exam(s) Completed: Pelvis X-Ray: Pelvis with Hip Bilateral PERIPHERAL IV DATA: Not applicable SIGNED BY: RT Eli(Rosana) July 03, 2024 9:06 AM documented in this encounter [facility] 07-03-2024 Note HNO ID: [id number] Author: ARIC QUILES RT(R) Service: Radiology Author Type: Technologist Type: Progress Notes Filed: 07/03/2024 09:06 Note Text: Radiology Service Progress Note PATIENT NAME: Cade Islas DATE OF SERVICE: July 03, 2024 TIME: 9:06 AM PATIENT IDENTITY VERIFICATION COMPLETED USING TWO (2) IDENTIFIERS: Name and Date of confirmed by patient verbally. FALL SCREENING: Has the patient had 2 falls in the last year or 1 fall with injury or currently using an Ambulatory Assistive Device (Walker, Cane, Wheelchair, Crutches, etc.)? No PATIENT GENDER DATA: Assigned male at PATIENT RELEVANT IMPLANT DATA REVIEWED: Yes PATIENT PRESENTS WITH AN IMPLANTABLE OR ATTACHED CSR TECHNICIAN: No RADIOLOGY DEPARTMENT: General X-ray: Exam(s) Completed: Pelvis X-Ray: Pelvis with Hip Bilateral PERIPHERAL IV DATA: Not applicable SIGNED BY: RT Eli(Rosana) July 03, 2024 9:06 AM [facility] 05-26-2024 Telephone encounter Note Patient calls requesting refill: Requested Prescriptions Requested Prescriptions Pending Prescriptions Disp Refills rivaroxaban (XARELTO) 20 mg tablet 90 tablet 2 Sig: Take 1 tablet by mouth daily with dinner. @RXAUTHPROV@ Date of last visit: 01/07/24 Phone #: [phone] (home) The patient's preferred pharmacy has been captured for this encounter? yes Louise Chaudhary MA May 26, 2024 4:28 PM [facility] 05-26-2024 Miscellaneous Notes Patient calls requesting refill: Requested Prescriptions Requested Prescriptions Pending Prescriptions Disp Refills rivaroxaban (XARELTO) 20 mg tablet 90 tablet 2 Sig: Take 1 tablet by mouth daily with dinner. @RXAUTHPROV@ Date of last visit: 01/07/24 Phone #: [phone] (home) The patient's preferred pharmacy has been captured for this encounter? yes Louise Chaudhary MA May 26, 2024 4:28 PM documented in this encounter [facility] 05-06-2024 Telephone encounter Note Patient calls requesting refill: Requested Prescriptions Requested Prescriptions Pending Prescriptions Disp Refills sotalol (BETAPACE) 240 mg tablet 180 tablet 1 Sig: Take 1 tablet by mouth every 12 hours. @RXAUTHPROV@ Date of last visit: 01/07/2024 Phone #: [phone] (home) The patient's preferred pharmacy has been captured for this encounter? yes Misty Lopez MA May 06, 2024 1:59 PM [facility] 05-06-2024 Miscellaneous Notes Patient calls requesting refill: Requested Prescriptions Requested Prescriptions Pending Prescriptions Disp Refills sotalol (BETAPACE) 240 mg tablet 180 tablet 1 Sig: Take 1 tablet by mouth every 12 hours. @RXAUTHPROV@ Date of last visit: 01/07/2024 Phone #: [phone] (home) The patient's preferred pharmacy has been captured for this encounter? yes Misty Lopez MA May 06, 2024 1:59 PM documented in this encounter [facility] 04-17-2024 History of Present illness Narrative Images from the original note were not included. Aric Linda DO Urology Office Visit Established patient [facility] [address] [facility] [address] Dept: [phone] Dept Loc: [phone] PATIENT NAME: Cade Islas DATE OF : 1945 REFERRING PROVIDER: No ref. provider found PCP: Nir Le MD DATE OF VISIT: 04/17/2024 CHIEF COMPLAINT: Chief Complaint Patient presents with Erectile Dysfunction IPP activation Impression: Diagnoses and all orders for this visit: Prostate cancer (HCC) - PSA Total (Diagnostic Post-Prostatectomy); Future - PSA Total (Diagnostic Post-Prostatectomy); Future Stress incontinence, male Erectile dysfunction after radical prostatectomy . Plan: Doing well after surgery last month, is still having occasional bouts of some mild stress incontinence but overall improved Handout was given regarding Kegels, if he does continue to do some Kegels we may be able to resolve what leakage she has left Not overly bothered by urge at this time IPP teaching performed, Cade was able to both inflate and deflate the prosthesis satisfactorily today. He was also provided with penile hindu protocol Almost 1 year out from prostatectomy, currently no evidence of disease This is a separate identifiable problem which was addressed and managed today due for next PSA at the end of the month, ordered today Will contact him with results of PSA, plan to follow-up in about 6 months with another PSA prior Follow Up: Follow up in about 6 months (around 10/15/2024) for Prostate cancer follow up ([facility], ED) PSA Prior. Aric Linda DO Reconstructive Urology [facility] [place]ive: Mr. Islas is a 79 y.o. male who presents to the office for IPP activation. Records have been reviewed HPI HPI IPP (inflatable penile prosthesis) activation Patient was seen today for activation of inflatable penile prosthesis. Physical examination reveals that penile prosthesis is in good position and pump is in the mid scrotum. Penile prosthesis was inflated by squeezing the bulb of the pump. This was done by giving the pump a firm squeeze after securing the pump within the scrotum using 2 hands. A small pop could be felt indicating that the valve is opened, then using a small flutter technique the bulb was compressed repeatedly in order to bring fluid from the reservoir into the cylinders. Device was able to cycle very well. Device was then deflated by pressing down the deflation button on the pump. Button was held down for approximately 4 seconds, then the shaft was given a gentle squeeze to encourage more fluid to return to the reservoir. Patient was then taught this technique of cycling. He demonstrated appropriate knowledge of the the pump location, is able to demonstrate inflating the device as well as deflating the device. He will be given a handout on penile hindu protocol and IPP cycling as well today. If he has any questions or wishes to review cycling techniques, he is welcome to call the office and make an appointment for follow-up at any time. He is allowed to use the device at any time. No restrictions. As always with any sign infection (erythema, proportion to the exam, swelling,) he should proceed to the emergency department immediately. He can also visit [email or web address] for further information regarding the penile prosthesis. Cade presents for follow-up visit He underwent advance XP male urethral sling and penile prosthesis insertion on 03/10/2024 Postoperatively he did have urinary retention, was discharged home with a catheter He underwent void trial in the office on 03/17/2024 Today he reports he is overall doing well. Did have some swelling and tenderness after the surgery, he is still moderately tender. He was able to deflate the prosthesis at home, this was because we did leave the prosthesis somewhat inflated at the time of surgery. He will occasionally have a small amount of leakage however he is improved from prior to us placing the sling He is due for PSA blood test at the end of this month, he is nearly 1 year out from his prostatectomy 03/10/24 AdVance XP Male urethral sling, AMS CX IPP 15 cm cylinder + 3 cm RTE bilaterally, 65 ml reservoir on the left 04/23/23 RALP. pT3a N0 M0 grade group 5 (Beau 4+5 = 9) intraductal Mary Alice Gota Burr, extraprostatic extension and perineural invasion present. Margins negative. Lymph nodes negative PSA 02/04/2024 0.05 11/07/2023 0.03 07/19/23 <0.1 05/14/23 0.11 Tobacco History reports that he has been smoking cigarettes. He has never used smokeless tobacco. Review of Systems Review of Systems Constitutional: Negative. HENT: Negative. Gastrointestinal: Negative. Genitourinary: Positive for enuresis, frequency, scrotal swelling and testicular pain. Negative for difficulty urinating, penile pain and penile swelling. Past Medical History: Past Medical History: Diagnosis Date Benign prostatic hyperplasia 2022 Diabetes (HCC) Elevated PSA 2022 GERD (gastroesophageal reflux disease) History of chronic atrial fibrillation Hyperlipidemia Hypertension Hypothyroidism Pacemaker Prostate cancer (HCC) 2022 Thrombocytopenia (HCC) Past Surgical History: Past Surgical History: Procedure Laterality Date ATRIAL CARDIAC PACEMAKER INSERTION CARPAL TUNNEL RELEASE Bilateral CHOLECYSTECTOMY INSERT / REMOVE / REPLACE PROSTHESIS PENILE 03/10/2024 PACEMAKER (HISTORICAL) PROSTATE SURGERY 2023 SPINAL CORD STIMULATOR IMPLANT URETHRAL SLING MALE 03/10/2024 Medications Current Outpatient Medications: amitriptyline (Elavil) 100 MG tablet, Take 100 mg by mouth Nightly., Disp: , Rfl: amLODIPine (Norvasc) 5 MG tablet, , Disp: , Rfl: atorvastatin (Lipitor) 10 MG tablet, , Disp: , Rfl: B Complex Vitamins (vitamin B complex) tablet, Take by mouth., Disp: , Rfl: cholecalciferol (Vitamin D-3) 125 MCG (5000 UT) capsule, Take 1 capsule by mouth Every 24 hours., Disp: , Rfl: fluticasone (Flonase) 50 MCG/ACT nasal spray, , Disp: , Rfl: gabapentin (Neurontin) 600 MG tablet, Take 600 mg by mouth 3 times daily., Disp: , Rfl: HYDROcodone-acetaminophen ([place]) 10-325 MG tablet, Take 1 tablet by mouth every 6 hours as needed., Disp: , Rfl: levothyroxine (Synthroid, Levoxyl) 50 MCG tablet, , Disp: , Rfl: lisinopril 40 MG tablet, , Disp: , Rfl: potassium chloride ER (Micro-K) 10 MEQ ER capsule, , Disp: , Rfl: Semaglutide, 2 MG/DOSE, (Ozempic, 2 MG/DOSE,) 8 MG/3ML solution pen-injector, Inject under the skin. Wednesdays, Disp: , Rfl: sotalol (Betapace) 240 MG tablet, every 12 hours., Disp: , Rfl: Xarelto 20 MG tablet, Take 1 tablet (20 mg) by mouth daily. Do not start before March 15, 2024., Disp: , Rfl: metFORMIN XR (Glucophage-XR) 500 MG 24 hr tablet, Take 500 mg by mouth daily. (Patient not taking: Reported on 04/17/2024), Disp: , Rfl: Vascepa 1 g capsule, , Disp: , Rfl: Vitals: BP (!) 141/86 (BP Location: Right arm, Patient Position: Sitting, BP Cuff Size: Large adult) Pulse 67 Ht 5' 8 (1.727 m) Wt 212 lb (96.2 kg) BMI 32.23 kg/m Physical Exam Physical Exam Constitutional: Appearance: Normal appearance. Pulmonary: Effort: Pulmonary effort is normal. Genitourinary: Comments: Circumcised, orthotopic meatus, testicles descended bilaterally, no masses, no tenderness. Penoscrotal incision is healing well. Penile prosthesis in good position. The pump is in the mid scrotum. There is some soft tissue swelling present still, no sign of infection. Perineal incision is well-healed Skin: General: Skin is warm and dry. Neurological: Mental Status: He is alert. Labs: Lab Results Component Value Date COLORU Yellow 04/26/2023 CLARITYU Turbid (A) 04/26/2023 KETONESU Negative 04/26/2023 PROTUR 100 (A) 04/26/2023 UROBILINOGEN Normal 04/26/2023 Hemoglobin Date Value Ref Range Status 02/28/2024 14.3 13.0 - 18.0 g/dL Final 07/05/2023 13.0 13.0 - 18.0 g/dL Final 07/04/2023 12.6 (L) 13.0 - 18.0 g/dL Final Hematocrit Date Value Ref Range Status 02/28/2024 41.4 40.0 - 52.0 % Final 07/05/2023 38.9 (L) 40.0 - 52.0 % Final 07/04/2023 38.3 (L) 40.0 - 52.0 % Final documented in this encounter [facility] 04-17-2024 Instructions Aric Linda DO - 04/17/2024 7:30 AM EST Penile Yarsani Protocol (Cycling Protocol) after Implant Great news: after an implant, the ability to have an erection on demand is available to you at any time of the day. The implant is designed to stay inflated for as long as you need/and or desire. What about LENGTH? As function decreases over time, the erectile tissue chambers can atrophy. When an implant is placed, we placed the LARGEST device that your tissue can safely accommodate. The most common device we place is designed to EXPAND IN LENGTH OVER TIME. This requires cycling the device to maximum rigidity on a regular basis after activation. CYCLING INSTRUCTIONS (Approximately 10 minutes per day) Once you have been given the all-clear to begin cycling your implant, it is important for you to become familiar with your device. Inflate the implant at least once per day, even if there are no plans to be sexually active. Once the implant has been filled to what you perceive to be maximum pressure, leave it in that position for 3 minutes. This allows your tissues to stretch around the implant. After 3 minutes, attempt to inflate further, again to maximum rigidity. Wait another 3 minutes. Repeat the attempt to inflate further, and leave it at this level for 3 more minutes. Empty the chambers by pressing the small button above the pump and holding it for several seconds. You should feel a vibratory sensation once you've activated this deflation mechanism. To fully empty the chambers, gently squeeze the penis, starting at the head/glans and moving back towards your pubic bone. This will help empty fluid from the chambers and force it back into the reservoir. Continue this regimen daily over several months to observe maximum erectile length. Visit [email or web address] for links to YouTube videos that will also show you how to use and cycle your implant. The video How to use your penile implant: from Dr Montgomery at [facility] is extremely helpful (I trained with Dr Montgomery in [place] and feel he puts together a very helpful video for patients). Aric Linda DO Reconstructive Urology [facility] [address] [place] [address], [address] [place] [address] Office: Fax: The following attachments cannot be sent through Care Everywhere.Pelvic Floor Exercises (Greenlandic)documented in this encounter [facility] 04-11-2024 Note HNO ID: [id number] Author: YOGESH ACUNA MD Service: ? Author Type: Physician Type: Progress Notes Filed: 04/12/2024 11:33 Note Text: Dual Pacer Remote Check Date: April 11, 2024 Time: 10:47 AM Devices: Implants Implant Lead Ra Lead [employer]-04/04/2023 - Implanted Heart Model/Cat number: REBECA Swift [id number] Serial number: [id number] Reservations Agent: [employer] Lot number: LEFT AXILLARY VEIN Size: Right Atrial Pacing Lead Left Bundle Branch Area Ventricular Lead [employer]ronik-04/04/2023 - Implanted Heart Model/Cat number: REBECA Swift 60 [id number] Serial number: [id number] Reservations Agent: [employer] Lot number: LEFT AXILLARY VEIN Size: Left Bundle Branch Area Ventricular Lead Pacemaker Dual Pacer [employer]ik-04/04/2023 - Implanted (Left) Chest Wall Model/Cat number: EDORA 8 DR-T PRO-MRI [id number] Serial number: [id number] Reservations Agent: [employer] Lot number: INITIAL DUAL PACER; LBB AREA PACING Size: Sick sinus syndrome, AV node dysfunction, paroxysmal A-fib, LVEF 64% by echo, BMI 31, PVCs, Xarelto anticoagulation. Last Interrogation Date: 01-07-2024 Estimated Remaining Longevity: 90% of the battery left until RADHA Interrogation Performed by: Janelle Chaudhary LPN Programming Parameters Mode: DDD-CLS Lower Rate: 60 Upper Track: 140 Upper Sensor: 130 Paced AV Delay: 220 Sensed AV Delay: 180 Atrial Refractory: ind Mode Switch: 160 Additional Device Information -VS percent: 0% -PRODUCT TRANSFER PUMPER percent: 0% AP-VS percent: 60% AP-PRODUCT TRANSFER PUMPER percent: 33% Atrial: Threshold: 0.5 V @ 0.4 msec Programmed amp/PW: 1.5 V @ 0.4 msec P wave: 3.3 mV Sensitivity: auto Impedance: 312 ohms Pacing percent: 92% Right Ventricle: Threshold: 0.6 V @ 0.4 msec Programmed amp/PW: 1.1 V @ 0.4 msec R wave: 10.1 mV Sensitivity: auto Impedance: 429 ohms RV pacin% Episodes: Atrial Fib count: 0 Atrial burden: 2% of day Mode Switch episodes: 23/day Ventricular Fibrillation count: 0 Fast Ventricular Tachycardia count: 0 Slow Ventricular Tachycardia: 0 NSVT: 0 Summary: Normal device function. Normal pacing and sensing threshold. Battery: 90% of the battery left until RADHA. Histogram: ok. Atrial episodes: 23 mode switch, 2% of day. Ventricular episodes: none. Follow up: 3 month device check and provider appointment. View External Cardiology - Correctional Nurse Strips [ID [id number]] [facility] 04-11-2024 History of Present illness Narrative Dual Pacer Remote Check Date: April 11, 2024 Time: 10:47 AM Devices: Implants Implant Lead Ra Lead Biotronik-04/04/2023 - Implanted Heart Model/Cat number: REBECA Swift [id number] Serial number: [id number] Reservations Agent: [employer] Lot number: LEFT AXILLARY VEIN Size: Right Atrial Pacing Lead Left Bundle Branch Area Ventricular Lead Biotronik-04/04/2023 - Implanted Heart Model/Cat number: REBECA Swift 60 [id number] Serial number: [id number] Reservations Agent: [employer] Lot number: LEFT AXILLARY VEIN Size: Left Bundle Branch Area Ventricular Lead Pacemaker Dual Pacer [employer]ronik-04/04/2023 - Implanted (Left) Chest Wall Model/Cat number: EDORA 8 DR-T PRO-MRI [id number] Serial number: [id number] Reservations Agent: [employer] Lot number: INITIAL DUAL PACER; LBB AREA PACING Size: Sick sinus syndrome, AV node dysfunction, paroxysmal A-fib, LVEF 64% by echo, BMI 31, PVCs, Xarelto anticoagulation. Last Interrogation Date: 01-07-2024 Estimated Remaining Longevity: 90% of the battery left until RADHA Interrogation Performed by: Janelle Chaudhary LPN Programming Parameters Mode: DDD-CLS Lower Rate: 60 Upper Track: 140 Upper Sensor: 130 Paced AV Delay: 220 Sensed AV Delay: 180 Atrial Refractory: ind Mode Switch: 160 Additional Device Information -VS percent: 0% -PRODUCT TRANSFER PUMPER percent: 0% AP-VS percent: 60% AP-PRODUCT TRANSFER PUMPER percent: 33% Atrial: Threshold: 0.5 V @ 0.4 msec Programmed amp/PW: 1.5 V @ 0.4 msec P wave: 3.3 mV Sensitivity: auto Impedance: 312 ohms Pacing percent: 92% Right Ventricle: Threshold: 0.6 V @ 0.4 msec Programmed amp/PW: 1.1 V @ 0.4 msec R wave: 10.1 mV Sensitivity: auto Impedance: 429 ohms RV pacin% Episodes: Atrial Fib count: 0 Atrial burden: 2% of day Mode Switch episodes: 23/day Ventricular Fibrillation count: 0 Fast Ventricular Tachycardia count: 0 Slow Ventricular Tachycardia: 0 NSVT: 0 Summary: Normal device function. Normal pacing and sensing threshold. Battery: 90% of the battery left until RADHA. Histogram: ok. Atrial episodes: 23 mode switch, 2% of day. Ventricular episodes: none. Follow up: 3 month device check and provider appointment. View External Cardiology - Correctional Nurse Strips [ID [id number]] documented in this encounter [facility] 04-08-2024 Telephone encounter Note Will do. [facility] 04-08-2024 Miscellaneous Notes Will do. It looks like he has gone in and out of A-fib in the past. Check in 1 week and let me know if he still in fib. Patient went into AFIB yesterday and is ongoing. documented in this encounter [facility] 04-08-2024 Telephone encounter Note It looks like he has gone in and out of A-fib in the past. Check in 1 week and let me know if he still in fib. [facility] 04-08-2024 Telephone encounter Note Patient went into AFIB yesterday and is ongoing. [facility] 03-20-2024 Telephone encounter Note Patient passed voiding trial on 03/17/24. Closing TE [facility] 03-20-2024 Miscellaneous Notes Patient passed voiding trial on 03/17/24. Closing TE Pt had IPP, sling placement 03/10. Unable to pass void trial in post-op. Will need void trial in office in 1 week. documented in this encounter [facility] 03-10-2024 Note Formatting of this n ote might be different from the original. Discharge instructions reviewed with patient and patient's at bedside. All questions answered. Patient understands catheter care, Dr Linda's office to contact him for follow up, and pain medication instructions. [facility] 03-10-2024 Note Formatting of this n ote might be different from the original. Discharge instructions reviewed with patient and patient's at bedside. All questions answered. Patient understands catheter care, Dr Linda's office to contact him for follow up, and pain medication instructions. [facility] 03-10-2024 Miscellaneous Notes Discharge instructions reviewed with patient and patient's at bedside. All questions answered. Patient understands catheter care, Dr Linda's office to contact him for follow up, and pain medication instructions. Patient with urinary retention. 14Fr cannon catheter insertion ordered. Patient tolerated insertion well. Educated on care and bag change. 300ml urine returned. JACKSON Thomson notified. Dr Linda office to contact patient for removal visit. Patient with urgency, stood to urinate 70-75ml. PVR measured 275ml. Res notified. Patient with urgency to void. Had already urinated in bed when covers pulled back to assist to stand. Slow trickling of urine into urinal. As soon as patient thought he was done, trickled more urine to floor. Assisted back to bed, got dry gown and blanket. PVR shows 407ml. Will message Res and Dr Linda. 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 Erectile dysfunction after prostatectomy Operation: Insertion of AdVance XP male urethral sling Local tissue rearrangement (dartos flap 2 cm x 6 cm = 12 cm2) Insertion of inflatable penile prosthesis Surgeon: Aric Linda DO Knobber: Trudy Abdi MD PGY5 Anesthesia: General EBL: minimal Wound classification: Clean Implants: AdVance XP Male Urethral Sling AMS 700 CX IPP 15 cm cylinders with 3 cm RTE bilaterally, 65 ml spherical reservoir on the left via counter incision Drains/Packing: none Cannon: none Specimens: none Complications: none apparent Condition: stable to PACU Indication for Procedure: Cade Islas is a 78 y.o. male who presents with stress urinary incontinence after radical prostatectomy. The patient was offered all pertinent options for his urinary incontinence and discussion was held regarding an artificial sphincter versus a male sling. Given his degree of leakage and the ability to coapt his sphincter, he has opted for the male sling despite a higher chance of dry rate with the artificial sphincter. Patient is interested in proceeding with placement of MALE URETHRAL SLING. He understands there is a higher dry rate with artificial sphincter, but after weighing his options we agreed that he is a good candidate for sling. We discussed risks of the procedure, which include but are not limited to bleeding, infection, pain, damage to urethra, urinary retention, continued urinary leakage, change in sensation and cosmesis, need for additional procedure and erectile dysfunction.. He understands that damage to the urethra or exposure of the sling would necessitate removal of sling with urethral repair and rest. He understands that there may be continued leakage after sling placement. Artificial sphincter could be considered in the future but comes with increased risk due to prior surgery.There is also a risk of post operative urinary retention, which may necessitate intermittent clean catheterization or indwelling catheter for a period of time after surgery. While this typically resolves, it can be permanent in some cases. He also understands there are risks associated with general anesthesia, and he agrees to proceed. Discussed benefits/risks/indications of penile prosthesis implant surgery including infection, mechanical device malfunction, need for additional procedures, urethral injury, blood loss, scaring, change in sensation, and pain in addition to general risks of anesthesia and he elects to proceed with surgery Description of Procedure: Patient was brought to the operating room and placed on the operative table. Induction per anesthesia. Vancomycin (1500mg) and Gentamicin (5mg/kg) and fluconazole 400mg were administered preoperative antibiotic, he was positioned in a normal dorsolithotomy fashion. Patient was then prepped and draped in the normal sterile fashion, a timeout was performed and all parties were in agreement. A 14-Micronesian silicone urethral Cannon catheter was placed. 10 mL of sterile water was used to inflate the balloon and the bladder was evacuated and then a catheter plug was placed. A 3-0 Prolene glans stay suture was used to help with penile retraction. A vertical midline incision was made on the patient's perineal rhaphe and dissection was carried down to the level of the bulbospongiosus muscle. This was divided sharply in the midline to expose the urethra. [place] retractor was placed and blunt hooks were used to retract the tissues and provide appropriate exposure. The central perineal tendon was then divided. The left groin crease was then identified and the adductor longus tendon was easily palpated. Approximately 1.5 cm below this tendon in the groin crease and just lateral to this, a spinal needle was placed to identify the obturator foramen. A 15 blade scalpel was used to puncture the skin at the site of this needle and the needle was removed. A helical trocar was then used to navigate through the upper foramen and then out into the perineal wound in the space between the urethra and corporal body. Once this was done, an AdVance XP male urethral sling was then attached to this helical trocar and its arm was then withdrawn through the corresponding puncture site at the skin. This procedure was completed in an identical fashion on the contralateral (right) side. The sling was then secured at four points with 4-0 absorbable suture at the corners to the tunica of the urethra. The points of fixation began just distal to the distal most insertion of the central perineal tendon. The sling was noted to ascend approximately 3-4 cm into the perineum and up towards the pelvis. The sleeves exiting the skin were cut and the plastic covers were removed in their entirety. Copious antibiotic solution was used throughout. Bulbospongiosus muscle was reapproximated with absorbable suture. Surgiflo hemostatic agent was inject alongside the urethra and via the groin incisions to assist with hemostasis. A dartos flap was created to cover the sling and urethra, this measured 2 cm x 6 cm and was closed with absorbable suture. 30 cc of bupivacaine was injected into the subcutaneous tissues for analgesia. Perineal wound was closed with two additional layers of absorbable suture and Dermabond. The puncture sites were also closed with Dermabond . The catheter was removed. He was then positioned supine, prepped and redraped in a normal sterile fashion. A new 14-Micronesian urethral Cannon catheter was placed with a catheter plug. A Dighton retractor was used for exposure, with penis placed on traction using 3-0 prolene suture in the glans as a stay stitch. A 3 cm transverse penoscrotal incision was made. Dissection was carried down to the level of the corpora cavernosa bilaterally using a combination of sharp dissection, blunt dissection, and Bovie electrocautery to ensure hemostasis. Copious antibiotic irrigation was used throughout. After exposing the bilateral corpora, two rows of stay sutures were placed in each corpora longitudinally. These were done with 2-0 Vicryl suture on a UR-6 needle. Longitudinal corporotomies were made between them and the corpora were dilated both proximally and distally with a #13 Alcantara dilator. A measuring device was used to determine the length in each corpora. It was determined that each corpora measured 18 cm in total (proximal 11 cm and distal 7 cm). An AMS 700 CX penile prosthesis was chosen. The size was 15 cm with 3 cm of rear tip extension bilaterally. The bladder was drained via the Cannon catheter prior to reservoir space development and placement. At this time, the space over the LEFT pubic tubercle was developed via a counter incision and the fascia was then punctured over the tubercle using curved Hernandez scissors. This space was developed with blunt dissection utilizing a long nasal speculum to place a standard reservoir. Antibiotic irrigation was used to ensure hemostasis and to irrigate the field. We selected a 65 cc standard AMS reservoir, which was filled to stated capacity with sterile saline. Rubber shodded mosquito clamps were used as appropriate throughout. The implant, having been prepared on the back table, was brought onto the field and was placed distally with the assistance of a [facility] and Deny needle. Proximally it was seated with the assistance of the device from the accessory kit. It was noted to fit well without buckling or excess tubing. The corporotomies were closed with the previously placed stay sutures. Test inflation was performed and showed an excellent cosmetic result. The test fluid was removed and the pump tubing and reservoir tubing were coupled with the accessory kit using a straight connector. A midline subdartos pouch was made in the anterior scrotum for placement of the pump. Copious antibiotic irrigation was again performed and cautery used to obtain hemostasis. Dartos was loosely approximated around the neck of the pump to prevent pump migration. The wound was then closed in three layers of absorbable suture. The sutures exiting the glans were removed, prosthesis was partially inflated, and Dermabond was used to seal these puncture locations as well as to cover our skin closure at the penoscrotal junction. The catheter was removed and dressing of fluffs and scrotal support was applied. The patient was cleansed and dried and dressings were placed. Patient was awakened from anesthesia and transferred to the recovery room in stable condition. Plan: He will be discharged home from PACU after voiding. If unable to void, a 14 fr catheter will be placed and voiding trial will be performed in office in 1-3 days. He may take Tylenol or OTC NSAID as needed for pain A short course of narcotic pain medication will be prescribed to be use for severe pain. Stool softener to prevent constipation. No heavy lifting or squatting for 4 weeks. May bend at the waist and lift up to 15 lbs as needed. May shower after 48 hours Follow up in 4 weeks for IPP teaching documented in this encounter [facility] [place] 03-10-2024 Note Formatting of this n ote might be different from the original. Patient with urinary retention. 14Fr cannon catheter insertion ordered. Patient tolerated insertion well. Educated on care and bag change. 300ml urine returned. JACKSON Res notified. Dr Linda office to contact patient for removal visit. [facility] [place] 03-10-2024 Note Formatting of this n ote might be different from the original. Patient with urinary retention. 14Fr cannon catheter insertion ordered. Patient tolerated insertion well. Educated on care and bag change. 300ml urine returned. JACKSON Thomson notified. Dr Linda office to contact patient for removal visit. [facility] 03-10-2024 Telephone encounter Note Pt had IPP, sling placement 03/10. Unable to pass void trial in post-op. Will need void trial in office in 1 week. [facility] [place] Work Phone: 03-10-2024 Note Formatting of this n ote might be different from the original. Patient with urgency, stood to urinate 70-75ml. PVR measured 275ml. Res notified. [facility] [place] 03-10-2024 Note Formatting of this n ote might be different from the original. Patient with urgency, stood to urinate 70-75ml. PVR measured 275ml. Res notified. [facility] [place] 03-10-2024 Note Formatting of this n ote might be different from the original. Patient with urgency to void. Had already urinated in bed when covers pulled back to assist to stand. Slow trickling of urine into urinal. As soon as patient thought he was done, trickled more urine to floor. Assisted back to bed, got dry gown and blanket. PVR shows 407ml. Will message Res and Dr Linda. [facility] 03-10-2024 Note Formatting of this n ote might be different from the original. Patient with urgency to void. Had already urinated in bed when covers pulled back to assist to stand. Slow trickling of urine into urinal. As soon as patient thought he was done, trickled more urine to floor. Assisted back to bed, got dry gown and blanket. PVR shows 407ml. Will message Alix and Dr Linda. [facility] [place] 03-10-2024 Note Patient: Cade gatica Procedure Summary Date: 03/10/24 Room / Location: [facility] OR [address] [place] [address] Operating Room Anesthesia Start: 734 Anesthesia Stop: 1224 Procedures: INSERTION MALE URETHRAL SLING (Perineum) POSSIBLE FLEXIBLE CYSTOSCOPY (Urethra) INSERTION OF PENILE PROSTHESIS (Penis) LOCAL TISSUE REARRANGEMENT Diagnosis: Erectile dysfunction following radical prostatectomy Stress incontinence (female) (male) Surgeons: Aric Linda DO Responsible Provider: Raghavendra Manriquez MD Anesthesia Type: general ASA Status: 3 Anesthesia Type: general Vitals Value Taken Time BP 134/72 03/10/24 1229 Temp 36.7 ?C (98 ?F) 03/10/24 1229 Pulse 60 03/10/24 1229 Resp 16 03/10/24 1229 SpO2 98 % 03/10/24 1229 Vitals shown include unfiled device data. Anesthesia Post Evaluation Patient location during evaluation: PACU Patient participation: complete - patient participated Level of consciousness: awake and alert Pain management: satisfactory to patient Airway patency: patent Dental Injury: no Cardiovascular status: acceptable, blood pressure returned to baseline and hemodynamically stable Respiratory status: acceptable and spontaneous ventilation Hydration status: euvolemic Nausea/Vomiting: controlled No notable events documented. Patient can be discharged once all PACU criteria has been met. [facility] 03-10-2024 Note Patient: Cade gatica Procedure Summary Date: 03/10/24 Room / Location: [address] Operating Room Anesthesia Start: 0735 Anesthesia Stop: 1224 Procedures: INSERTION MALE URETHRAL SLING (Perineum) POSSIBLE FLEXIBLE CYSTOSCOPY (Urethra) INSERTION OF PENILE PROSTHESIS (Penis) LOCAL TISSUE REARRANGEMENT Diagnosis: Erectile dysfunction following radical prostatectomy Stress incontinence (female) (male) Surgeons: Aric Linda DO Responsible Provider: Raghavendra Manriquez MD Anesthesia Type: general ASA Status: 3 Anesthesia Type: general Vitals Value Taken Time BP 134/72 03/10/24 1229 Temp 36.7 ?C (98 ?F) 03/10/24 1229 Pulse 60 03/10/24 1229 Resp 16 03/10/24 1229 SpO2 97 % 03/10/24 1229 Anesthesia Post Evaluation Patient location during evaluation: PACU Patient participation: complete - patient participated Level of consciousness: awake and alert Pain score: 0 Pain management: satisfactory to patient Multimodal analgesia pain management approach Airway patency: patent Two or more strategies used to mitigate risk of obstructive sleep apnea Cardiovascular status: acceptable and hemodynamically stable Respiratory status: acceptable Hydration status: acceptable No notable events documented. MIPS #430 PONV Patient received an inhalational anesthetic (4554F) Patient exhibits three or more risk factors for PONV (4556F) Patient received at [facility] 2 prophylactic Rx PONV anti-emtic agents of different classes preop and/or intraop (G9775) MIPS # 424 Perioperative Temperature Management Anesthesia time was 60 minutes or longer (4255F) Anesthesai administered was General (inhalational or TIVA) or Neuraxial block (X0424) At least one body temperature greater than 95.8F/35.5C achieved within the 30 mins immediately prior to or the 15 minutes immediately following anesthesia end time (G9771) MIPS #477 Multimodal Pain Management Not emergent case Patient was administered multimodal pain management (two or more drugs and/or interventions excluding systemic opioids) in the periopeartive period occurring at some time between 6 hours prior to anesthesia start time until discharged from PACU (G2148) MIPS #404 Anesthesiology Smoking Abstinence The patient is not a current smoker (e.g. cigarette, cigar, pipe, e-cigarette/vaping/marijuana) If no stop here (XX404) I completed my handoff to the receiving clinician during which we: 1. Identified the patient 2. Identified the responsible provider 3. Reviewed the pertinent medical history 4. Discussed the surgical course 5. Reviewed intra-op anesthesia management and issues during anesthesia 6. Set expectations for post-procedure period 7. Allowed opportunity for questions and acknowledgement of understanding. [facility] 03-10-2024 Hospital Discharge instructions Trudy Abdi MD - 03/10/2024 12:29 PM EST You may restart your Xarelto in 5 days Pre and Postoperative Instructions - Insertion of Penile Prosthesis Prior to Surgery You will be given a copy of the BLOOD THINNER POLICY prior to your procedure. It is important that you adhere to these instructions and stop blood thinning medications (with physician approval) prior to surgery. For 3 days leading up to surgery, you will be asked to shower with HIBICLENS SOAP. Please scrub the genital area thoroughly. Your Hemoglobin A1c must be <9.0% in order to safely proceed with surgery. You should refrain from using all tobacco products, as these greatly impact wound healing. Day of Surgery Following surgery, you may be admitted for overnight observation. If this is the case, a temporary catheter will be left in your bladder overnight. The catheter will be removed before you are discharged home and we will ensure you are able to void before you go home. If you are kept overnight for observation, the prosthesis will be kept inflated. It will be deflated prior to your discharge home. Whether you are discharged or kept for observation, use ice packs/cool compresses to help with swelling and pain (do not apply directly to the skin). Your diet will be advanced as tolerated. Take it easy, some patients have nausea after anesthesia. What to expect after surgery You may experience some bruising or swelling. Continue to use cool compresses (bag of frozen vegetables works well), applying for 20 minutes at a time and then taking a break. Do not apply ice directly to your skin.] Use supportive underwear (does not have to be super tight) If you stopped any blood thinning medications, you may resume these 48 hours after surgery. It is ok to start taking NSAIDs (Ibuprofen/Motrin/Advil/Aleve) immediately after surgery. If you notice unusual bleeding or bruising, however, please contact the office. Avoid strenuous physical activity for 4-6 weeks. You should not lift more than about 25 lbs at once. Avoid all perineal/groin pressure for 4-6 weeks. This includes bicycles, horseback riding, motorcycle, snowmobile, etc. You may shower 24 hours after surgery, and should continue to do so daily. Do not enter a swimming pool/hot tub/urban until you have been seen at your follow up appointment to ensure complete healing. Do not use your device until cleared to at your follow up visit. Follow-up: You have been given information regarding your prosthesis. I encourage you and your partner to look this over and become familiar with your device. At 4 weeks post-operatively, you will be seen in the office by one of our Advanced Practice Providers to undergo teaching and device activation. Bring your partner to this visit if possible so that you may both become familiar with its use. You will be given a copy of the Cycling protocol at this visit as well. I will see you back about 3 months after the surgery, and sooner as needed. Tissue healing and remodeling can take several months, and nerve regeneration can take up to a year. You may experience changes in sensation at first. This will likely change/evolve over time as the body continues to heal and I encourage you to be patient with your body. If, at any time, you experience any uncontrolled pain, swelling, fever, drainage from the incision site, or have any other cause for concern please contact the office RACHEL. If you experience a fever > 100.4 please go to the nearest ER for evaluation. Aric Linda DO [facility] [address], [address] [place] [address] Office: Fax: Pre and Postoperative Instructions - Male Sling Prior to Surgery: You will be given a copy of the BLOOD THINNER POLICY prior to your procedure. It is important that you adhere to these instructions and stop blood thinning medications (with physician approval) prior to surgery. For 3 days leading up to surgery, you will be asked to shower with ANTIBACTERIAL SOAP. Please scrub the genital area thoroughly. You will undergo an office cystoscopy to look inside the bladder and ensure there is no scar tissue. We will also check a urine sample to ensure you have no infection leading up to surgery. Your Hemoglobin A1c must be <9.0% in order to safely proceed with surgery. You should refrain from using all tobacco products, as these greatly impact wound healing. Day of Surgery: Following surgery, you may be admitted for overnight observation. If this is the case, a temporary catheter will be left in your bladder overnight. Most patients are discharged home the day of surgery. The catheter will be removed before you are discharged home and we will ensure you are able to empty your bladder. If you are unable to empty your bladder after surgery (which can happen in some men), know this is usually temporary and resolves within a couple of days. We will have two options if this is the case. Reinsert an indwelling catheter to temporarily drain your bladder and have you follow-up in the office in a couple of days. Teach you how to intermittently pass a small catheter to empty your bladder. Whether you are discharged or kept for observation, use ice packs/cool compresses to help with swelling and pain (do not apply directly to the skin). Your diet will be advanced as tolerated. Take it easy, some patients have nausea after anesthesia. What to expect after surgery: You will have one incision behind the scrotum and two small incisions that will be closed with absorbable sutures and skin glue will be applied. If the wounds open up, are red, or your experience drainage please contact the office immediately as this can be a sign of infection. You may experience some bruising or swelling. This is considered normal. Bruising may occur within the penis, scrotum, and area behind the scrotum (perineum). Continue to use cool compresses (bag of frozen vegetables works well), applying for 20 minutes at a time and then taking a break. Do not apply ice directly to your skin. Do not fall asleep with ice on your skin. If bruising is excessive, PLEASE CONTACT THE OFFICE so that we may evaluate you Use supportive underwear (does not have to be super tight), some people find this helps with discomfort. If you stopped any blood thinning medications, you may resume these 48 hours after surgery. It is ok to start taking NSAIDs (Ibuprofen/Motrin/Advil/Aleve/Tord adol) immediately after surgery. Do not take multiple NSAIDs at the same time. These should be taken with food to help prevent GI upset. If you notice unusual bleeding or bruising, however, please contact the office. Avoid strenuous physical activity for 4-6 weeks. You should not lift more than about 20-25 lbs at once. You may walk around the house, and may go up/down stairs but try to limit your physical activity the first few days. Avoid all perineal pressure for 8 weeks. This includes the following bicycles horseback riding motorcycle, snowmobile Riding lawnmower Rock climbing/ anything requiring a harness around the pelvis You may shower 24-48 hours after surgery, and should continue to do so daily. Do not scrub the incisions, but it is ok to allow soapy water to wash over the incisions. Do not enter a swimming pool/hot tub/urban until you have been seen at your follow up appointment to ensure complete healing. Avoid squatting or spreading your hips open widely for the first 4-6 weeks. This is to prevent the sling from moving as it scars into place. Follow-up: You will be seen by myself or one of our Advanced Practice Providers about 3 and sometimes again at 6 weeks after surgery to ensure you are still doing well, or sooner as needed. If you are discharged with a catheter or are taught to self catheterize, you will be seen in a few days to re-evaluate emptying. I will see you back about 3 months after the surgery, and sooner as needed. Tissue healing and remodeling can take several months, and nerve regeneration can take up to a year. You may experience changes in sensation at first. This will likely change/evolve over time as the body continues to heal and I encourage you to be patient with your body. If, at any time, you experience any uncontrolled pain, urinary retention, swelling, fever, drainage from the incision site, or have any other cause for concern please contact the office RACHEL. If you experience a fever > 100.4 please go to the nearest ER for evaluation. Aric Linda DO [facility] [address] [place] [address], [address] [place] [phone] Office: Fax: The following attachments cannot be sent through Care Everywhere.How to Care for Your Cannon Catheter (Greenlandic)documented in this encounter [facility] 03-10-2024 Note Airway Date/Time: 03/10/2024 7:45 AM Urgency: scheduled Airway not difficult General Information and Staff Patient location during procedure: Procedural Anesthesiologist: Raghavendra Manriquez MD Resident/DISABILITY SERVICES COORDINATOR: Bossman Sinha APRN - DISABILITY SERVICES COORDINATOR Performed: DISABILITY SERVICES COORDINATOR Indications and Patient Condition Indications for airway management: anesthesia and airway protection Sedation level: Asleep Preoxygenated: yes Patient position: sniffing MILS maintained throughout Mask difficulty assessment: 1 - vent by mask Final Airway Details Final airway type: endotracheal airway Successful airway: ETT Cuffed: yes Successful intubation technique: direct laryngoscopy Endotracheal tube insertion site: oral Blade: Mark Blade size: #4 ETT size (mm): 8.0 Cormack-Lehane Classification: grade I - full view of glottis Placement verified by: chest auscultation and capnometry Measured from: lips ETT to lips (cm): 23 Number of attempts at approach: 1 Ventilation between attempts: spontaneous Number of other approaches attempted: 0 Additional Comments Patient intubated by ED Resident with assistance from Declan GOMEZ. Atraumatic. X1 attempt. [facility] 03-10-2024 Note Formatting of this n ote might be different from the original. 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 Erectile dysfunction after prostatectomy Operation: Insertion of AdVance XP male urethral sling Local tissue rearrangement (dartos flap 2 cm x 6 cm = 12 cm2) Insertion of inflatable penile prosthesis Surgeon: Aric Linda DO Knobber: Trudy Abdi MD PGY5 Anesthesia: General EBL: minimal Wound classification: Clean Implants: AdVance XP Male Urethral Sling AMS 700 CX IPP 15 cm cylinders with 3 cm RTE bilaterally, 65 ml spherical reservoir on the left via counter incision Drains/Packing: none Cannon: none Specimens: none Complications: none apparent Condition: stable to PACU Indication for Procedure: Cade Islas is a 78 y.o. male who presents with stress urinary incontinence after radical prostatectomy. The patient was offered all pertinent options for his urinary incontinence and discussion was held regarding an artificial sphincter versus a male sling. Given his degree of leakage and the ability to coapt his sphincter, he has opted for the male sling despite a higher chance of dry rate with the artificial sphincter. Patient is interested in proceeding with placement of MALE URETHRAL SLING. He understands there is a higher dry rate with artificial sphincter, but after weighing his options we agreed that he is a good candidate for sling. We discussed risks of the procedure, which include but are not limited to bleeding, infection, pain, damage to urethra, urinary retention, continued urinary leakage, change in sensation and cosmesis, need for additional procedure and erectile dysfunction.. He understands that damage to the urethra or exposure of the sling would necessitate removal of sling with urethral repair and rest. He understands that there may be continued leakage after sling placement. Artificial sphincter could be considered in the future but comes with increased risk due to prior surgery.There is also a risk of post operative urinary retention, which may necessitate intermittent clean catheterization or indwelling catheter for a period of time after surgery. While this typically resolves, it can be permanent in some cases. He also understands there are risks associated with general anesthesia, and he agrees to proceed. Discussed benefits/risks/indications of penile prosthesis implant surgery including infection, mechanical device malfunction, need for additional procedures, urethral injury, blood loss, scaring, change in sensation, and pain in addition to general risks of anesthesia and he elects to proceed with surgery Description of Procedure: Patient was brought to the operating room and placed on the operative table. Induction per anesthesia. Vancomycin (1500mg) and Gentamicin (5mg/kg) and fluconazole 400mg were administered preoperative antibiotic, he was positioned in a normal dorsolithotomy fashion. Patient was then prepped and draped in the normal sterile fashion, a timeout was performed and all parties were in agreement. A 14-Micronesian silicone urethral Cannon catheter was placed. 10 mL of sterile water was used to inflate the balloon and the bladder was evacuated and then a catheter plug was placed. A 3-0 Prolene glans stay suture was used to help with penile retraction. A vertical midline incision was made on the patient's perineal rhaphe and dissection was carried down to the level of the bulbospongiosus muscle. This was divided sharply in the midline to expose the urethra. LoneStar retractor was placed and blunt hooks were used to retract the tissues and provide appropriate exposure. The central perineal tendon was then divided. The left groin crease was then identified and the adductor longus tendon was easily palpated. Approximately 1.5 cm below this tendon in the groin crease and just lateral to this, a spinal needle was placed to identify the obturator foramen. A 15 blade scalpel was used to puncture the skin at the site of this needle and the needle was removed. A helical trocar was then used to navigate through the upper foramen and then out into the perineal wound in the space between the urethra and corporal body. Once this was done, an AdVance XP male urethral sling was then attached to this helical trocar and its arm was then withdrawn through the corresponding puncture site at the skin. This procedure was completed in an identical fashion on the contralateral (right) side. The sling was then secured at four points with 4-0 absorbable suture at the corners to the tunica of the urethra. The points of fixation began just distal to the distal most insertion of the central perineal tendon. The sling was noted to ascend approximately 3-4 cm into the perineum and up towards the pelvis. The sleeves exiting the skin were cut and the plastic covers were removed in their entirety. Copious antibiotic solution was used throughout. Bulbospongiosus muscle was reapproximated with absorbable suture. Surgiflo hemostatic agent was inject alongside the urethra and via the groin incisions to assist with hemostasis. A dartos flap was created to cover the sling and urethra, this measured 2 cm x 6 cm and was closed with absorbable suture. 30 cc of bupivacaine was injected into the subcutaneous tissues for analgesia. Perineal wound was closed with two additional layers of absorbable suture and Dermabond. The puncture sites were also closed with Dermabond . The catheter was removed. He was then positioned supine, prepped and redraped in a normal sterile fashion. A new 14-Micronesian urethral Cannon catheter was placed with a catheter plug. A Dighton retractor was used for exposure, with penis placed on traction using 3-0 prolene suture in the glans as a stay stitch. A 3 cm transverse penoscrotal incision was made. Dissection was carried down to the level of the corpora cavernosa bilaterally using a combination of sharp dissection, blunt dissection, and Bovie electrocautery to ensure hemostasis. Copious antibiotic irrigation was used throughout. After exposing the bilateral corpora, two rows of stay sutures were placed in each corpora longitudinally. These were done with 2-0 Vicryl suture on a UR-6 needle. Longitudinal corporotomies were made between them and the corpora were dilated both proximally and distally with a #13 Alcantara dilator. A measuring device was used to determine the length in each corpora. It was determined that each corpora measured 18 cm in total (proximal 11 cm and distal 7 cm). An AMS 700 CX penile prosthesis was chosen. The size was 15 cm with 3 cm of rear tip extension bilaterally. The bladder was drained via the Cannon catheter prior to reservoir space development and placement. At this time, the space over the LEFT pubic tubercle was developed via a counter incision and the fascia was then punctured over the tubercle using curved Hernandez scissors. This space was developed with blunt dissection utilizing a long nasal speculum to place a standard reservoir. Antibiotic irrigation was used to ensure hemostasis and to irrigate the field. We selected a 65 cc standard AMS reservoir, which was filled to stated capacity with sterile saline. Rubber shodded mosquito clamps were used as appropriate throughout. The implant, having been prepared on the back table, was brought onto the field and was placed distally with the assistance of a [facility] and Deny needle. Proximally it was seated with the assistance of the device from the accessory kit. It was noted to fit well without buckling or excess tubing. The corporotomies were closed with the previously placed stay sutures. Test inflation was performed and showed an excellent cosmetic result. The test fluid was removed and the pump tubing and reservoir tubing were coupled with the accessory kit using a straight connector. A midline subdartos pouch was made in the anterior scrotum for placement of the pump. Copious antibiotic irrigation was again performed and cautery used to obtain hemostasis. Dartos was loosely approximated around the neck of the pump to prevent pump migration. The wound was then closed in three layers of absorbable suture. The sutures exiting the glans were removed, prosthesis was partially inflated, and Dermabond was used to seal these puncture locations as well as to cover our skin closure at the penoscrotal junction. The catheter was removed and dressing of fluffs and scrotal support was applied. The patient was cleansed and dried and dressings were placed. Patient was awakened from anesthesia and transferred to the recovery room in stable condition. Plan: He will be discharged home from PACU after voiding. If unable to void, a 14 fr catheter will be placed and voiding trial will be performed in office in 1-3 days. He may take Tylenol or OTC NSAID as needed for pain A short course of narcotic pain medication will be prescribed to be use for severe pain. Stool softener to prevent constipation. No heavy lifting or squatting for 4 weeks. May bend at the waist and lift up to 15 lbs as needed. May shower after 48 hours Follow up in 4 weeks for IPP teaching [facility] 03-10-2024 Note Formatting of this n ote might be different from the original. 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 Erectile dysfunction after prostatectomy Operation: Insertion of AdVance XP male urethral sling Local tissue rearrangement (dartos flap 2 cm x 6 cm = 12 cm2) Insertion of inflatable penile prosthesis Surgeon: Aric Linda DO Knobber: Trudy Abdi MD PGY5 Anesthesia: General EBL: minimal Wound classification: Clean Implants: AdVance XP Male Urethral Sling AMS 700 CX IPP 15 cm cylinders with 3 cm RTE bilaterally, 65 ml spherical reservoir on the left via counter incision Drains/Packing: none Cannon: none Specimens: none Complications: none apparent Condition: stable to PACU Indication for Procedure: Cade Islas is a 78 y.o. male who presents with stress urinary incontinence after radical prostatectomy. The patient was offered all pertinent options for his urinary incontinence and discussion was held regarding an artificial sphincter versus a male sling. Given his degree of leakage and the ability to coapt his sphincter, he has opted for the male sling despite a higher chance of dry rate with the artificial sphincter. Patient is interested in proceeding with placement of MALE URETHRAL SLING. He understands there is a higher dry rate with artificial sphincter, but after weighing his options we agreed that he is a good candidate for sling. We discussed risks of the procedure, which include but are not limited to bleeding, infection, pain, damage to urethra, urinary retention, continued urinary leakage, change in sensation and cosmesis, need for additional procedure and erectile dysfunction.. He understands that damage to the urethra or exposure of the sling would necessitate removal of sling with urethral repair and rest. He understands that there may be continued leakage after sling placement. Artificial sphincter could be considered in the future but comes with increased risk due to prior surgery.There is also a risk of post operative urinary retention, which may necessitate intermittent clean catheterization or indwelling catheter for a period of time after surgery. While this typically resolves, it can be permanent in some cases. He also understands there are risks associated with general anesthesia, and he agrees to proceed. Discussed benefits/risks/indications of penile prosthesis implant surgery including infection, mechanical device malfunction, need for additional procedures, urethral injury, blood loss, scaring, change in sensation, and pain in addition to general risks of anesthesia and he elects to proceed with surgery Description of Procedure: Patient was brought to the operating room and placed on the operative table. Induction per anesthesia. Vancomycin (1500mg) and Gentamicin (5mg/kg) and fluconazole 400mg were administered preoperative antibiotic, he was positioned in a normal dorsolithotomy fashion. Patient was then prepped and draped in the normal sterile fashion, a timeout was performed and all parties were in agreement. A 14-Micronesian silicone urethral Cannon catheter was placed. 10 mL of sterile water was used to inflate the balloon and the bladder was evacuated and then a catheter plug was placed. A 3-0 Prolene glans stay suture was used to help with penile retraction. A vertical midline incision was made on the patient's perineal rhaphe and dissection was carried down to the level of the bulbospongiosus muscle. This was divided sharply in the midline to expose the urethra. LoneStar retractor was placed and blunt hooks were used to retract the tissues and provide appropriate exposure. The central perineal tendon was then divided. The left groin crease was then identified and the adductor longus tendon was easily palpated. Approximately 1.5 cm below this tendon in the groin crease and just lateral to this, a spinal needle was placed to identify the obturator foramen. A 15 blade scalpel was used to puncture the skin at the site of this needle and the needle was removed. A helical trocar was then used to navigate through the upper foramen and then out into the perineal wound in the space between the urethra and corporal body. Once this was done, an AdVance XP male urethral sling was then attached to this helical trocar and its arm was then withdrawn through the corresponding puncture site at the skin. This procedure was completed in an identical fashion on the contralateral (right) side. The sling was then secured at four points with 4-0 absorbable suture at the corners to the tunica of the urethra. The points of fixation began just distal to the distal most insertion of the central perineal tendon. The sling was noted to ascend approximately 3-4 cm into the perineum and up towards the pelvis. The sleeves exiting the skin were cut and the plastic covers were removed in their entirety. Copious antibiotic solution was used throughout. Bulbospongiosus muscle was reapproximated with absorbable suture. Surgiflo hemostatic agent was inject alongside the urethra and via the groin incisions to assist with hemostasis. A dartos flap was created to cover the sling and urethra, this measured 2 cm x 6 cm and was closed with absorbable suture. 30 cc of bupivacaine was injected into the subcutaneous tissues for analgesia. Perineal wound was closed with two additional layers of absorbable suture and Dermabond. The puncture sites were also closed with Dermabond . The catheter was removed. He was then positioned supine, prepped and redraped in a normal sterile fashion. A new 14-Micronesian urethral Cannon catheter was placed with a catheter plug. A Dighton retractor was used for exposure, with penis placed on traction using 3-0 prolene suture in the glans as a stay stitch. A 3 cm transverse penoscrotal incision was made. Dissection was carried down to the level of the corpora cavernosa bilaterally using a combination of sharp dissection, blunt dissection, and Bovie electrocautery to ensure hemostasis. Copious antibiotic irrigation was used throughout. After exposing the bilateral corpora, two rows of stay sutures were placed in each corpora longitudinally. These were done with 2-0 Vicryl suture on a UR-6 needle. Longitudinal corporotomies were made between them and the corpora were dilated both proximally and distally with a #13 Alcantara dilator. A measuring device was used to determine the length in each corpora. It was determined that each corpora measured 18 cm in total (proximal 11 cm and distal 7 cm). An AMS 700 CX penile prosthesis was chosen. The size was 15 cm with 3 cm of rear tip extension bilaterally. The bladder was drained via the Cannon catheter prior to reservoir space development and placement. At this time, the space over the LEFT pubic tubercle was developed via a counter incision and the fascia was then punctured over the tubercle using curved Hernandez scissors. This space was developed with blunt dissection utilizing a long nasal speculum to place a standard reservoir. Antibiotic irrigation was used to ensure hemostasis and to irrigate the field. We selected a 65 cc standard AMS reservoir, which was filled to stated capacity with sterile saline. Rubber shodded mosquito clamps were used as appropriate throughout. The implant, having been prepared on the back table, was brought onto the field and was placed distally with the assistance of a [facility] and Deny needle. Proximally it was seated with the assistance of the device from the accessory kit. It was noted to fit well without buckling or excess tubing. The corporotomies were closed with the previously placed stay sutures. Test inflation was performed and showed an excellent cosmetic result. The test fluid was removed and the pump tubing and reservoir tubing were coupled with the accessory kit using a straight connector. A midline subdartos pouch was made in the anterior scrotum for placement of the pump. Copious antibiotic irrigation was again performed and cautery used to obtain hemostasis. Dartos was loosely approximated around the neck of the pump to prevent pump migration. The wound was then closed in three layers of absorbable suture. The sutures exiting the glans were removed, prosthesis was partially inflated, and Dermabond was used to seal these puncture locations as well as to cover our skin closure at the penoscrotal junction. The catheter was removed and dressing of fluffs and scrotal support was applied. The patient was cleansed and dried and dressings were placed. Patient was awakened from anesthesia and transferred to the recovery room in stable condition. Plan: He will be discharged home from PACU after voiding. If unable to void, a 14 fr catheter will be placed and voiding trial will be performed in office in 1-3 days. He may take Tylenol or OTC NSAID as needed for pain A short course of narcotic pain medication will be prescribed to be use for severe pain. Stool softener to prevent constipation. No heavy lifting or squatting for 4 weeks. May bend at the waist and lift up to 15 lbs as needed. May shower after 48 hours Follow up in 4 weeks for IPP teaching [facility] 03-10-2024 Attending History and physical note H&P reviewed. The patient was examined and there are no changes to the H&P. Source Note - Brianna Cain APRN - EPIC AMBULATORY ANALYST - 02/28/2024 3:30 PM EST Images from the original note were not included. Name: Cade Islas : 1945 (Age-78 y.o.) Date of Service: Pt seen/examined on 02/28/2024 Procedure Information Date/Time: 03/10/24 3730 Procedures: INSERTION MALE URETHRAL SLING (Perineum) - 5 HOURS. POSSIBLE FLEXIBLE CYSTOSCOPY (Urethra) INSERTION OF PENILE PROSTHESIS (Penis) LOCAL TISSUE REARRANGEMENT Location: [facility] OR [address] [place] [address] Operating Room Surgeons: Aric Linda DO Chief Complaint: Erectile dysfunction following radical prostatectomy Stress incontinence (male) ASSESSMENT/PLAN: This surgery is an intermediate level 1 risk procedure/surgery () with no reducible risk factors. Based on the above evaluation, the benefits of the planned procedure likely exceed the risks. The patient is medically optimized to proceed with the planned procedure without any further cardiopulmonary testing. See telephone encounter in regards to anticoagulation days to be held, [address] Linda 1) Erectile dysfunction following radical prostatectomy [N52.31] Stress incontinence (female) (male) [N39.3] - Managed per surgery 2) HTN -complaint with antihypertensives - yes Toxic Drug Monitoring: Drug: lilsinopril, norvasc, Route: Oral Monitoring: EKG - no VS - as below Labs: Yes - BMP -encouraged lifestyle modifications BP Readings from Last 3 Encounters: 02/28/24 115/68 01/02/24 137/77 11/14/23 (!) 147/90 Lab Results Component Value Date GLUCOSE 118 (H) 07/05/2023 CALCIUM 9.1 07/05/2023 NA 139 07/05/2023 K 3.8 07/05/2023 CO2 22 07/05/2023 CL 108 (H) 07/05/2023 BUN 12 07/05/2023 CREATININE 0.89 07/05/2023 3) Diabetes type 2 - Managed by pcp. - Patient reports compliance to medications - Diabetic medications per PAT protocol. - Patient aware per anesthesia protocol, BS must be below 250 DOS Toxic Drug Monitoring: Drug:semaglutide aware to hold for 7 days prior to surgery. Metformin Route: Oral Monitoring: EKG - yes VS - as below Labs: see below 4) cardiac pacemaker -device check [facility] 01/07/2024 5)Atrial Fibrillation - Managed by Dr Smiley [facility] - Patient reports compliance to medication and is currently asymptomatic - Anticoagulated: Yes, With: Xaralto , and Managed by: Dr Smiley will hold for 3 days prior to surgery per PAT protocol see telephone encounter Toxic Drug Monitoring: Drug: Sotalol Route: Oral Monitoring: EKG - yes VS - BP 115/68 Pulse 61 Temp 36.3 C (97.4 F) (Temporal) Resp 18 Ht 1.727 m (5' 8) Wt 96.4 kg (212 lb 9.6 oz) SpO2 99% BMI 32.33 kg/m Labs: BMP, CBC 5)thrombocytopenia -Dr W[place] hematology [facility] -cbc today 6)HLD -statin therapy - Lipitor -lifestyle modifications encouraged 7)Hypothyroidism - Treated with medication: Yes No results found for: TSH 8)Hx of prostate cancer -2023 prostate removal 9)chronic back pain -stimulator to lower back -pain management [facility] Visit Type: Pre-Admission Testing Visit Labs Ordered: YES - PER PAT PROTOCOL Cbc Sleep Referral Ordered: na Total time spent (which include face to face and non face to face encounters) : 30 minutes Toxic drug monitoring/narrow therapeutic index drug monitoring : # Drug name : synthroid # Route administered : po # Method of monitoring : tsh PAT Protocol referenced includes: 1. Anesthesia Lab Protocol Orders 2. Perioperative Cardiovascular Risk Assessment 3. Anesthesia Assessment 4. Pain Assessment and Acute Pain Service Consult (if appropriate) 5. Medical Clearance/Consult from Internal Medicine (IMS) 6. Shower/Wash Order (for designated surgeries) 7. YEISON Screen and Sleep Clinic Referral (if appropriate) History Of Present Illness: 78 y.o. male who we are asked to see/evaluate by [facility] 08 for pre-operative evaluation prior to . Case: [id number] Date/Time: 03/10/24 0730 Procedures: INSERTION MALE URETHRAL SLING (Perineum) [72422 CPT(R)] - 5 HOURS. POSSIBLE FLEXIBLE CYSTOSCOPY (Urethra) [11445 CPT(R)] INSERTION OF PENILE PROSTHESIS (Penis) [05661 CPT(R)] LOCAL TISSUE REARRANGEMENT [32870 CPT(R)] Anesthesia type: General Dr Linda office notes 01/02/2024 Impression: Diagnoses and all orders for this visit: Stress incontinence, male Erectile dysfunction after radical prostatectomy Prostate cancer (HCC) . Plan: Reviewed treatment options for male stress incontinence with patient and his today Based on symptoms of 2-3 pads per day, would likely be a good candidate for a male urethral sling He will try stopping his stream during urination over the next couple of weeks and focus on how many pads he is using every day Will have him return for office cystoscopy to rule out any urethral pathology or bladder pathology For erectile dysfunction we discussed treatment options including higher doses of oral medications, vacuum erection device, intracavernosal injection and penile prosthesis Information was given regarding vacuum erection device. Use of this for 10 to 15 minutes 1-2 times a day can help improve penile length after prostatectomy by means of daily stretching At this time he would like to think about options before making a decision Will have him return for office evaluation, cystoscopy On this date I spent 45 minutes [id number] with patient and his reviewing treatment options for stress incontinence as well as erectile dysfunction after radical prostatectomy Follow Up: Follow up for office cystoscopy (ADELSO woodard) . Office notes Dr Linda 01/30/2024 Patient was advised that HbA1c must be < 8.0 to proceed with surgery. He should hold all anticoagulants for 7 days prior to surgery (including aspirin, plavix, brilinta, eliquis, xarelto, pradaxa, coumadin). NSAIDS (ibuprofen, naproxen, naprosen, motrin) should be held 7 days prior as well if patient is able. He should shower with antibacterial soap for 3 days prior to surgery, taking care to focus on the genital region. No shave prep is necessary prior to surgery Do you have a history of chronic opioid use? no ? Denies history of [place], CAD, CHF, TIA, CVA PE, DVT Denies chest pain, shortness of breath and dizziness Past Medical History: Past Medical History: 2022: Benign prostatic hyperplasia No date: Diabetes (HCC) 2022: Elevated PSA No date: GERD (gastroesophageal reflux disease) No date: History of chronic atrial fibrillation No date: Hyperlipidemia No date: Hypertension No date: Hypothyroidism No date: Pacemaker 2022: Prostate cancer (HCC) No date: Thrombocytopenia (HCC) Past Surgical History: Past Surgical History: No date: ATRIAL CARDIAC PACEMAKER INSERTION No date: CARPAL TUNNEL RELEASE; Bilateral No date: CHOLECYSTECTOMY No date: PACEMAKER (HISTORICAL) 2023: PROSTATE SURGERY No date: SPINAL CORD STIMULATOR IMPLANT Medications Prior to Admission: Prior to Admission medications Medication Sig Start Date End Date Taking? Authorizing Provider amitriptyline (Elavil) 100 MG tablet Take 100 mg by mouth Nightly. 03/02/23 Historical Provider, amLODIPine (Norvasc) 5 MG tablet 10/09/22 Historical Provider, atorvastatin (Lipitor) 10 MG tablet 03/09/23 Historical Provider, fluticasone (Flonase) 50 MCG/ACT nasal spray 08/03/22 Historical Provider, gabapentin (Neurontin) 600 MG tablet Take 600 mg by mouth 3 times daily. 02/19/23 Historical Provider, levothyroxine (Synthroid, Levoxyl) 50 MCG tablet 12/11/22 Historical Provider, lisinopril 40 MG tablet 03/27/23 Historical Provider, metFORMIN XR (Glucophage-XR) 500 MG 24 hr tablet Take 500 mg by mouth 2 times daily. 03/20/23 Historical Provider, potassium chloride ER (Micro-K) 10 MEQ ER capsule 01/14/23 Historical Provider, Semaglutide, 2 MG/DOSE, (Ozempic, 2 MG/DOSE,) 8 MG/3ML solution pen-injector Inject under the skin. 05/24/22 Historical Provider, sotalol (Betapace) 240 MG tablet every 12 hours. 04/06/23 Historical Provider, Vascepa 1 g capsule 12/11/22 Historical Provider, Xarelto 20 MG tablet Take 20 mg by mouth 1 (one) time each day. 11/11/22 Historical Provider, CHRONIC NARCOTIC USE: Vicodin Allergies: Patient has no known allergies. If patient has opioid allergy, is it okay to take Acetaminophen: Yes Social History: TOBACCO: reports that he has never smoked. He has never used smokeless tobacco. ETOH: reports that he does not currently use alcohol. Social History Substance and Sexual Activity Drug Use Never Family History: Family History Problem Relation Name Age of Onset Hypertension Paternal Grandfather Jung Cancer Paternal Grandmother Jung REVIEW OF SYSTEMS: Review of Systems Constitutional: Negative for activity change, fatigue and fever. HENT: Negative for congestion and sore throat. Eyes: Negative for visual disturbance. Respiratory: Negative. Negative for shortness of breath and wheezing. Cardiovascular: Negative. Negative for chest pain, palpitations and leg swelling. Gastrointestinal: Negative. Negative for abdominal pain, nausea and vomiting. Endocrine: Negative for polyuria. Genitourinary: Negative for difficulty urinating, dysuria and flank pain. Urinary incontinence Musculoskeletal: Negative. Negative for back pain, neck pain and neck stiffness. Skin: Negative. Negative for color change. Neurological: Negative for dizziness, weakness and numbness. Psychiatric/Behavioral: Negative for behavioral problems and suicidal ideas. All other systems reviewed and are negative. Physical Exam: Physical Exam Vitals and nursing note reviewed. Constitutional: Appearance: Normal appearance. HENT: Head: Normocephalic. Nose: Nose normal. Mouth/Throat: Mouth: Mucous membranes are moist. Eyes: Pupils: Pupils are equal, round, and reactive to light. Cardiovascular: Rate and Rhythm: Normal rate and regular rhythm. Pulses: Normal pulses. Heart sounds: Normal heart sounds. Pulmonary: Effort: Pulmonary effort is normal. Breath sounds: Normal breath sounds. No decreased breath sounds, wheezing, rhonchi or rales. Abdominal: General: Abdomen is flat. Musculoskeletal: General: Normal range of motion. Right lower leg: No edema. Left lower leg: No edema. Comments: Moves all extremities Skin: General: Skin is warm. Capillary Refill: Capillary refill takes less than 2 seconds. Neurological: General: No focal deficit present. Mental Status: He is alert. Vitals: Vitals Value Taken Time BP 115/68 02/28/24 1528 Temp 36.3 C (97.4 F) 02/28/24 1528 Pulse 61 02/28/24 1528 Resp 18 02/28/24 1528 SpO2 99 % 02/28/24 1528 BP Readings from Last 4 Encounters: 02/28/24 115/68 01/02/24 137/77 11/14/23 (!) 147/90 08/14/23 130/69 Labs: Interpretation: 0 Points Class I 0.5% 1 Point Class II 1.3% 2 Points Class III 3.6% 3+ Points Class IV 9.1% PAT Pain Score: 0/10 Postop Pain Management Plan (Pain consult ordered?): Pain consult not indicated at this time ? EK02/28/2024 ECHO and EF:None on file METS >4____ Electronically signed by: GREGORIO Johnston CNP Date: 02/28/2024 at 3:52 PM Cosigned by Avtar Peña DO at 02/28/2024 10:13 PM EST [facility] 03-10-2024 Note H&P reviewed. The pa monique was examined and there are no changes to the H&P. [facility] 03-10-2024 History and physical note H&P reviewed. The patient was examined and there are no changes to the H&P. Source Note - GREGORIO Burkett CNP - 02/28/2024 3:30 PM EST Images from the original note were not included. Name: Cade Islas : 1945 (Age-78 y.o.) Date of Service: Pt seen/examined on 02/28/2024 Procedure Information Date/Time: 03/10/24 0730 Procedures: INSERTION MALE URETHRAL SLING (Perineum) - 5 HOURS. POSSIBLE FLEXIBLE CYSTOSCOPY (Urethra) INSERTION OF PENILE PROSTHESIS (Penis) LOCAL TISSUE REARRANGEMENT Location: [facility] OR [address] [place] [address] Operating Room Surgeons: Aric Linda DO Chief Complaint: Erectile dysfunction following radical prostatectomy Stress incontinence (male) ASSESSMENT/PLAN: This surgery is an intermediate level 1 risk procedure/surgery () with no reducible risk factors. Based on the above evaluation, the benefits of the planned procedure likely exceed the risks. The patient is medically optimized to proceed with the planned procedure without any further cardiopulmonary testing. See telephone encounter in regards to anticoagulation days to be held, [address] Linda 1) Erectile dysfunction following radical prostatectomy [N52.31] Stress incontinence (female) (male) [N39.3] - Managed per surgery 2) HTN -complaint with antihypertensives - yes Toxic Drug Monitoring: Drug: lilsinopril, norvasc, Route: Oral Monitoring: EKG - no VS - as below Labs: Yes - BMP -encouraged lifestyle modifications BP Readings from Last 3 Encounters: 02/28/24 115/68 01/02/24 137/77 11/14/23 (!) 147/90 Lab Results Component Value Date GLUCOSE 118 (H) 07/05/2023 CALCIUM 9.1 07/05/2023 NA 139 07/05/2023 K 3.8 07/05/2023 CO2 22 07/05/2023 CL 108 (H) 07/05/2023 BUN 12 07/05/2023 CREATININE 0.89 07/05/2023 3) Diabetes type 2 - Managed by pcp. - Patient reports compliance to medications - Diabetic medications per PAT protocol. - Patient aware per anesthesia protocol, BS must be below 250 DOS Toxic Drug Monitoring: Drug:semaglutide aware to hold for 7 days prior to surgery. Metformin Route: Oral Monitoring: EKG - yes VS - as below Labs: see below 4) cardiac pacemaker -device check [facility] 01/07/2024 5)Atrial Fibrillation - Managed by Dr Smiley [facility] - Patient reports compliance to medication and is currently asymptomatic - Anticoagulated: Yes, With: Xaralto , and Managed by: Dr Smiley will hold for 3 days prior to surgery per PAT protocol see telephone encounter Toxic Drug Monitoring: Drug: Sotalol Route: Oral Monitoring: EKG - yes VS - BP 115/68 Pulse 61 Temp 36.3 C (97.4 F) (Temporal) Resp 18 Ht 1.727 m (5' 8) Wt 96.4 kg (212 lb 9.6 oz) SpO2 99% BMI 32.33 kg/m Labs: BMP, CBC 5)thrombocytopenia -Dr [facility] hematology [facility] -cbc today 6)HLD -statin therapy - Lipitor -lifestyle modifications encouraged 7)Hypothyroidism - Treated with medication: Yes No results found for: TSH 8)Hx of prostate cancer -2023 prostate removal 9)chronic back pain -stimulator to lower back -pain management [facility] Visit Type: Pre-Admission Testing Visit Labs Ordered: YES - PER PAT PROTOCOL Cbc Sleep Referral Ordered: na Total time spent (which include face to face and non face to face encounters) : 30 minutes Toxic drug monitoring/narrow therapeutic index drug monitoring : # Drug name : synthroid # Route administered : po # Method of monitoring : tsh PAT Protocol referenced includes: 1. Anesthesia Lab Protocol Orders 2. Perioperative Cardiovascular Risk Assessment 3. Anesthesia Assessment 4. Pain Assessment and Acute Pain Service Consult (if appropriate) 5. Medical Clearance/Consult from Internal Medicine (IMS) 6. Shower/Wash Order (for designated surgeries) 7. YEISON Screen and Sleep Clinic Referral (if appropriate) History Of Present Illness: 78 y.o. male who we are asked to see/evaluate by [place] [id number] for pre-operative evaluation prior to . Case: [id number] Date/Time: 03/10/24 0730 Procedures: INSERTION MALE URETHRAL SLING (Perineum) [77578 CPT(R)] - 5 HOURS. POSSIBLE FLEXIBLE CYSTOSCOPY (Urethra) [63080 CPT(R)] INSERTION OF PENILE PROSTHESIS (Penis) [08569 CPT(R)] LOCAL TISSUE REARRANGEMENT [26195 CPT(R)] Anesthesia type: General Dr Linda office notes 01/02/2024 Impression: Diagnoses and all orders for this visit: Stress incontinence, male Erectile dysfunction after radical prostatectomy Prostate cancer (HCC) . Plan: Reviewed treatment options for male stress incontinence with patient and his today Based on symptoms of 2-3 pads per day, would likely be a good candidate for a male urethral sling He will try stopping his stream during urination over the next couple of weeks and focus on how many pads he is using every day Will have him return for office cystoscopy to rule out any urethral pathology or bladder pathology For erectile dysfunction we discussed treatment options including higher doses of oral medications, vacuum erection device, intracavernosal injection and penile prosthesis Information was given regarding vacuum erection device. Use of this for 10 to 15 minutes 1-2 times a day can help improve penile length after prostatectomy by means of daily stretching At this time he would like to think about options before making a decision Will have him return for office evaluation, cystoscopy On this date I spent 45 minutes [id number] with patient and his reviewing treatment options for stress incontinence as well as erectile dysfunction after radical prostatectomy Follow Up: Follow up for office cystoscopy (ADELSO woodard) . Office notes Dr Linda 01/30/2024 Patient was advised that HbA1c must be < 8.0 to proceed with surgery. He should hold all anticoagulants for 7 days prior to surgery (including aspirin, plavix, brilinta, eliquis, xarelto, pradaxa, coumadin). NSAIDS (ibuprofen, naproxen, naprosen, motrin) should be held 7 days prior as well if patient is able. He should shower with antibacterial soap for 3 days prior to surgery, taking care to focus on the genital region. No shave prep is necessary prior to surgery Do you have a history of chronic opioid use? no ? Denies history of [place], CAD, CHF, TIA, CVA PE, DVT Denies chest pain, shortness of breath and dizziness Past Medical History: Past Medical History: 2022: Benign prostatic hyperplasia No date: Diabetes (HCC) 2022: Elevated PSA No date: GERD (gastroesophageal reflux disease) No date: History of chronic atrial fibrillation No date: Hyperlipidemia No date: Hypertension No date: Hypothyroidism No date: Pacemaker 2022: Prostate cancer (HCC) No date: Thrombocytopenia (HCC) Past Surgical History: Past Surgical History: No date: ATRIAL CARDIAC PACEMAKER INSERTION No date: CARPAL TUNNEL RELEASE; Bilateral No date: CHOLECYSTECTOMY No date: PACEMAKER (HISTORICAL) 2023: PROSTATE SURGERY No date: SPINAL CORD STIMULATOR IMPLANT Medications Prior to Admission: Prior to Admission medications Medication Sig Start Date End Date Taking? Authorizing Provider amitriptyline (Elavil) 100 MG tablet Take 100 mg by mouth Nightly. 03/02/23 Historical Provider, amLODIPine (Norvasc) 5 MG tablet 10/09/22 Historical Provider, atorvastatin (Lipitor) 10 MG tablet 03/09/23 Historical Provider, fluticasone (Flonase) 50 MCG/ACT nasal spray 08/03/22 Historical Provider, gabapentin (Neurontin) 600 MG tablet Take 600 mg by mouth 3 times daily. 02/19/23 Historical Provider, levothyroxine (Synthroid, Levoxyl) 50 MCG tablet 12/11/22 Historical Provider, lisinopril 40 MG tablet 03/27/23 Historical Provider, metFORMIN XR (Glucophage-XR) 500 MG 24 hr tablet Take 500 mg by mouth 2 times daily. 03/20/23 Historical ProviderMD potassium chloride ER (Micro-K) 10 MEQ ER capsule 01/14/23 Historical Provider, Semaglutide, 2 MG/DOSE, (Ozempic, 2 MG/DOSE,) 8 MG/3ML solution pen-injector Inject under the skin. 05/24/22 Historical Provider, sotalol (Betapace) 240 MG tablet every 12 hours. 04/06/23 Historical Provider, Vascepa 1 g capsule 12/11/22 Historical Provider, Xarelto 20 MG tablet Take 20 mg by mouth 1 (one) time each day. 11/11/22 Historical Provider, CHRONIC NARCOTIC USE: Vicodin Allergies: Patient has no known allergies. If patient has opioid allergy, is it okay to take Acetaminophen: Yes Social History: TOBACCO: reports that he has never smoked. He has never used smokeless tobacco. ETOH: reports that he does not currently use alcohol. Social History Substance and Sexual Activity Drug Use Never Family History: Family History Problem Relation Name Age of Onset Hypertension Paternal Grandfather Jung Cancer Paternal Grandmother Jung REVIEW OF SYSTEMS: Review of Systems Constitutional: Negative for activity change, fatigue and fever. HENT: Negative for congestion and sore throat. Eyes: Negative for visual disturbance. Respiratory: Negative. Negative for shortness of breath and wheezing. Cardiovascular: Negative. Negative for chest pain, palpitations and leg swelling. Gastrointestinal: Negative. Negative for abdominal pain, nausea and vomiting. Endocrine: Negative for polyuria. Genitourinary: Negative for difficulty urinating, dysuria and flank pain. Urinary incontinence Musculoskeletal: Negative. Negative for back pain, neck pain and neck stiffness. Skin: Negative. Negative for color change. Neurological: Negative for dizziness, weakness and numbness. Psychiatric/Behavioral: Negative for behavioral problems and suicidal ideas. All other systems reviewed and are negative. Physical Exam: Physical Exam Vitals and nursing note reviewed. Constitutional: Appearance: Normal appearance. HENT: Head: Normocephalic. Nose: Nose normal. Mouth/Throat: Mouth: Mucous membranes are moist. Eyes: Pupils: Pupils are equal, round, and reactive to light. Cardiovascular: Rate and Rhythm: Normal rate and regular rhythm. Pulses: Normal pulses. Heart sounds: Normal heart sounds. Pulmonary: Effort: Pulmonary effort is normal. Breath sounds: Normal breath sounds. No decreased breath sounds, wheezing, rhonchi or rales. Abdominal: General: Abdomen is flat. Musculoskeletal: General: Normal range of motion. Right lower leg: No edema. Left lower leg: No edema. Comments: Moves all extremities Skin: General: Skin is warm. Capillary Refill: Capillary refill takes less than 2 seconds. Neurological: General: No focal deficit present. Mental Status: He is alert. Vitals: Vitals Value Taken Time BP 115/68 02/28/24 1528 Temp 36.3 C (97.4 F) 02/28/24 1528 Pulse 61 02/28/24 1528 Resp 18 02/28/24 1528 SpO2 99 % 02/28/24 1528 BP Readings from Last 4 Encounters: 02/28/24 115/68 01/02/24 137/77 11/14/23 (!) 147/90 08/14/23 130/69 Labs: Interpretation: 0 Points Class I 0.5% 1 Point Class II 1.3% 2 Points Class III 3.6% 3+ Points Class IV 9.1% PAT Pain Score: 0/10 Postop Pain Management Plan (Pain consult ordered?): Pain consult not indicated at this time ? EK02/28/2024 ECHO and EF:None on file METS >4____ Electronically signed by: GREGORIO Johnston CNP Date: 02/28/2024 at 3:52 PM Cosigned by Avtar Peña DO at 02/28/2024 10:13 PM EST documented in this encounter [facility] 03-03-2024 Telephone encounter Note 03/03/2024 10:10 I spoke with patient. He is aware to hold his Xarelto 3 days prior to surgery. He has no questions at this time. Thank you. [facility] Work Phone: 03-03-2024 Miscellaneous Notes 03/03/2024 10:10 I spoke with patient. He is aware to hold his Xarelto 3 days prior to surgery. He has no questions at this time. Thank you. documented in this encounter [facility] 02-29-2024 Telephone encounter Note Maribell simmons Is not part of [facility] / inbox is not monitored He may hold Xarelto for 3 days prior to surgery per PAT protocol [facility] 02-29-2024 Miscellaneous Notes Maribell simmons Is not part of [facility] / inbox is not monitored He may hold Xarelto for 3 days prior to surgery per PAT protocol Attempted to contact Dr Tyler's office Sunday at 1400. Was told by phone service that they leave at 1 pm on Sunday. Will attempt to talk to someone in office on Sunday [phone]. I have added Maribell Simmons CNP on this encounter. I saw Cade in PAT for medical clearance prior to Urethral sling on 03/10/2024. HE is currently anticoagulated on Xaralto for Afib. Cardiology recommendation and PAT protocol patient should be off this medication for 3 days prior to surgery. In your note Dr Linda you stated 7 days prior to surgery. Do you plan on bridging this patient on Lovenox? Thank you for your reply. Brianna documented in this encounter [facility] 02-29-2024 Telephone encounter Note Attempted to contact Dr Tyler's office Sunday at 1400. Was told by phone service that they leave at 1 pm on Sunday. Will attempt to talk to someone in office on Sunday [phone]. [facility] Work Phone: 02-29-2024 Telephone encounter Note I have added Maribell Simmons CNP on this encounter. [facility] 02-28-2024 Note I saw Cade in [facility] for medical clearance prior to Urethral sling on 03/10/2024. HE is currently anticoagulated on Xaralto for Afib. Cardiology recommendation and PAT protocol patient should be off this medication for 3 days prior to surgery. In your note Dr Lnida you stated 7 days prior to surgery. Do you plan on bridging this patient on Lovenox? Thank you for your reply. [facility] 02-28-2024 Telephone encounter Note I saw Cdae in [facility] for medical clearance prior to Urethral sling on 03/10/2024. HE is currently anticoagulated on Xaralto for Afib. Cardiology recommendation and PAT protocol patient should be off this medication for 3 days prior to surgery. In your note Dr Linda you stated 7 days prior to surgery. Do you plan on bridging this patient on Lovenox? Thank you for your reply. Brianna [facility] 02-28-2024 Note Patient: Cade [facility] Procedure Information Date/Time: 03/10/24 0730 Procedures: INSERTION MALE URETHRAL SLING (Perineum) - 5 HOURS. POSSIBLE FLEXIBLE CYSTOSCOPY (Urethra) INSERTION OF PENILE PROSTHESIS (Penis) LOCAL TISSUE REARRANGEMENT Location: [facility] OR [address] [place] [address] Operating Room Surgeons: Aric Linda, DO Relevant Problems Other (+) Malignant neoplasm of prostate (HCC) Past Medical History: Past Medical History: 2022: Benign prostatic hyperplasia No date: Diabetes (HCC) 2022: Elevated PSA No date: GERD (gastroesophageal reflux disease) No date: History of chronic atrial fibrillation No date: Hyperlipidemia No date: Hypertension No date: Hypothyroidism No date: Pacemaker 2022: Prostate cancer (HCC) No date: Thrombocytopenia (HCC) Past Surgical History: Past Surgical History: No date: ATRIAL CARDIAC PACEMAKER INSERTION No date: CARPAL TUNNEL RELEASE; Bilateral No date: CHOLECYSTECTOMY No date: PACEMAKER (HISTORICAL) 2023: PROSTATE SURGERY No date: SPINAL CORD STIMULATOR IMPLANT Social History: TOBACCO: reports that he has never smoked. He has never used smokeless tobacco. ETOH: reports that he does not currently use alcohol. Social History Substance and Sexual Activity Drug Use Never Family History: Family History Problem Relation Name Age of Onset Hypertension Paternal Grandfather Jung Cancer Paternal Grandmother Jung Screening: unknown Clinical information reviewed: Tobacco Allergies Meds Med Hx Surg Hx Physical Exam Airway Mallampati: III TM distance: >3 FB Neck ROM: full Mouth Open: normal Cardiovascular Dental (+) Missing dentition normal Pulmonary Abdominal Abdomen: soft Anesthesia Plan patient is NPO appropriate Any family history or previous problems with anesthesia no ASA 3 general Any family history or previous problems with anesthesia no The patient is not a current smoker. Anesthetic plan and risks discussed with patient. Blood Glucose Insulin Sliding Scale: low ERAS Type 03/05/24 Chart reviewed. DOS orders for anesthesia placed according to ERAS protocol. General eras - celebrex (uro) Rani Boss APRN - [facility] YE[facility] Screening STOP-Bang Total Score: 3 Labs: Lab Results Component Value Date WBC 5.3 07/05/2023 HGB 13.0 07/05/2023 HCT 38.9 (L) 07/05/2023 MCV 87.4 07/05/2023 PLT 272 07/05/2023 Lab Results Component Value Date NA 139 07/05/2023 K 3.8 07/05/2023 CL 108 (H) 07/05/2023 CO2 22 07/05/2023 BUN 12 07/05/2023 CREATININE 0.89 07/05/2023 GLUCOSE 118 (H) 07/05/2023 CALCIUM 9.1 07/05/2023 PROT 8.2 06/30/2023 ALKPHOS 441 (H) 06/30/2023 AST 82 (H) 06/30/2023 ALT 83 (H) 06/30/2023 EGFR 88.3 07/05/2023 No echocardiogram results found for the past 14 days 06/30/23 ECG 12-LEAD 07/01/2023 1:32 PM (Final) Impression Atrial-ventricular dual-paced rhythm Equipment Requests: Additional Equipment Requests Scope: [employer] [facility] 02-28-2024 Note Name: Cade Islas : 1945 (Age-78 y.o.) Date of Service: Pt seen/examined on 02/28/2024 Procedure Information Date/Time: 03/10/24 0730 Procedures: INSERTION MALE URETHRAL SLING (Perineum) - 5 HOURS. POSSIBLE FLEXIBLE CYSTOSCOPY (Urethra) INSERTION OF PENILE PROSTHESIS (Penis) LOCAL TISSUE REARRANGEMENT Location: [facility] OR [address] [place] [address] Operating Room Surgeons: Aric Linda DO Chief Complaint: Erectile dysfunction following radical prostatectomy Stress incontinence (male) ASSESSMENT/PLAN: This surgery is an intermediate level 1 risk procedure/surgery () with no reducible risk factors. Based on the above evaluation, the benefits of the planned procedure likely exceed the risks. The patient is medically optimized to proceed with the planned procedure without any further cardiopulmonary testing. See telephone encounter in regards to anticoagulation days to be held, [address] Linda 1) Erectile dysfunction following radical prostatectomy [N52.31] Stress incontinence (female) (male) [N39.3] - Managed per surgery 2) HTN -complaint with antihypertensives - yes Toxic Drug Monitoring: Drug: lilsinopril, norvasc, Route: Oral Monitoring: EKG - no VS - as below Labs: Yes - BMP -encouraged lifestyle modifications BP Readings from Last 3 Encounters: 02/28/24 115/68 01/02/24 137/77 11/14/23 (!) 147/90 Lab Results Component Value Date GLUCOSE 118 (H) 07/05/2023 CALCIUM 9.1 07/05/2023 NA 139 07/05/2023 K 3.8 07/05/2023 CO2 22 07/05/2023 CL 108 (H) 07/05/2023 BUN 12 07/05/2023 CREATININE 0.89 07/05/2023 3) Diabetes type 2 - Managed by pcp. - Patient reports compliance to medications - Diabetic medications per PAT protocol. - Patient aware per anesthesia protocol, BS must be below 250 DOS Toxic Drug Monitoring: Drug:semaglutide aware to hold for 7 days prior to surgery. Metformin Route: Oral Monitoring: EKG - yes VS - as below Labs: see below 4) cardiac pacemaker -device check [facility] 01/07/2024 5)Atrial Fibrillation - Managed by Dr Smiley [facility] - Patient reports compliance to medication and is currently asymptomatic - Anticoagulated: Yes, With: Xaralto , and Managed by: Dr Smiley will hold for 3 days prior to surgery per PAT protocol see telephone encounter Toxic Drug Monitoring: Drug: Sotalol Route: Oral Monitoring: EKG - yes VS - BP 115/68 Pulse 61 Temp 36.3 ?C (97.4 ?F) (Temporal) Resp 18 Ht 1.727 m (5' 8) Wt 96.4 kg (212 lb 9.6 oz) SpO2 99% BMI 32.33 kg/m? Labs: BMP, CBC 5)thrombocytopenia -Dr [facility] hematology [facility] -cbc today 6)HLD -statin therapy - Lipitor -lifestyle modifications encouraged 7)Hypothyroidism - Treated with medication: Yes No results found for: TSH 8)Hx of prostate cancer -2023 prostate removal 9)chronic back pain -stimulator to lower back -pain management [facility] Visit Type: Pre-Admission Testing Visit Labs Ordered: YES - PER PAT PROTOCOL Cbc Sleep Referral Ordered: na Total time spent (which include face to face and non face to face encounters) : 30 minutes Toxic drug monitoring/narrow therapeutic index drug monitoring : # Drug name : synthroid # Route administered : po # Method of monitoring : tsh PAT Protocol referenced includes: 1. Anesthesia Lab Protocol Orders 2. Perioperative Cardiovascular Risk Assessment 3. Anesthesia Assessment 4. Pain Assessment and Acute Pain Service Consult (if appropriate) 5. Medical Clearance/Consult from Internal Medicine ([facility]) 6. Shower/Wash Order (for designated surgeries) 7. YEISON Screen and Sleep Clinic Referral (if appropriate) History Of Present Illness: 78 y.o. male who we are asked to see/evaluate by [place] [id number] for pre-operative evaluation prior to . Case: [id number] Date/Time: 03/10/24729 Procedures: INSERTION MALE URETHRAL SLING (Perineum) [18577 CPT(R)] - 5 HOURS. POSSIBLE FLEXIBLE CYSTOSCOPY (Urethra) [54915 CPT(R)] INSERTION OF PENILE PROSTHESIS (Penis) [22401 CPT(R)] LOCAL TISSUE REARRANGEMENT [26180 CPT(R)] Anesthesia type: General Dr Linda office notes 01/02/2024 Impression: Diagnoses and all orders for this visit: Stress incontinence, male Erectile dysfunction after radical prostatectomy Prostate cancer (HCC) . Plan: Reviewed treatment options for male stress incontinence with patient and his today Based on symptoms of 2-3 pads per day, would likely be a good candidate for a male urethral sling He will try stopping his stream during urination over the next couple of weeks and focus on how many pads he is using every day Will have him return for office cystoscopy to rule out any urethral pathology or bladder pathology For erectile dysfunction we discussed treatment options including higher doses of oral medications, vacuum erection device, (more content not included)... [facility] 02-28-2024 Note Name: Cade Islas : 1945 (Age-78 y.o.) Date of Service: Pt seen/examined on 02/28/2024 Procedure Information Date/Time: 03/10/2430 Procedures: INSERTION MALE URETHRAL SLING (Perineum) - 5 HOURS. POSSIBLE FLEXIBLE CYSTOSCOPY (Urethra) INSERTION OF PENILE PROSTHESIS (Penis) LOCAL TISSUE REARRANGEMENT Location: [place] OR 18 / [facility] Operating Room Surgeons: Aric Linda DO Chief Complaint: Erectile dysfunction following radical prostatectomy Stress incontinence (male) ASSESSMENT/PLAN: This surgery is an intermediate level 1 risk procedure/surgery () with no reducible risk factors. Based on the above evaluation, the benefits of the planned procedure likely exceed the risks. The patient is medically optimized to proceed with the planned procedure without any further cardiopulmonary testing. See telephone encounter in regards to anticoagulation days to be held, [address] Linda 1) Erectile dysfunction following radical prostatectomy [N52.31] Stress incontinence (female) (male) [N39.3] - Managed per surgery 2) HTN -complaint with antihypertensives - yes Toxic Drug Monitoring: Drug: lilsinopril, norvasc, Route: Oral Monitoring: EKG - no VS - as below Labs: Yes - BMP -encouraged lifestyle modifications BP Readings from Last 3 Encounters: 02/28/24 115/68 01/02/24 137/77 11/14/23 (!) 147/90 Lab Results Component Value Date GLUCOSE 118 (H) 07/05/2023 CALCIUM 9.1 07/05/2023 NA 139 07/05/2023 K 3.8 07/05/2023 CO2 22 07/05/2023 CL 108 (H) 07/05/2023 BUN 12 07/05/2023 CREATININE 0.89 07/05/2023 3) Diabetes type 2 - Managed by pcp. - Patient reports compliance to medications - Diabetic medications per PAT protocol. - Patient aware per anesthesia protocol, BS must be below 250 DOS Toxic Drug Monitoring: Drug:semaglutide aware to hold for 7 days prior to surgery. Metformin Route: Oral Monitoring: EKG - yes VS - as below Labs: see below 4) cardiac pacemaker -device check [facility] 01/07/2024 5)Atrial Fibrillation - Managed by Dr Smiley [facility] - Patient reports compliance to medication and is currently asymptomatic - Anticoagulated: Yes, With: Xaralto , and Managed by: Dr Smiley will hold for 3 days prior to surgery per PAT protocol see telephone encounter Toxic Drug Monitoring: Drug: Sotalol Route: Oral Monitoring: EKG - yes VS - BP 115/68 Pulse 61 Temp 36.3 ?C (97.4 ?F) (Temporal) Resp 18 Ht 1.727 m (5' 8) Wt 96.4 kg (212 lb 9.6 oz) SpO2 99% BMI 32.33 kg/m? Labs: BMP, CBC 5)thrombocytopenia -Dr [facility] -cbc today 6)HLD -statin therapy - Lipitor -lifestyle modifications encouraged 7)Hypothyroidism - Treated with medication: Yes No results found for: TSH 8)Hx of prostate cancer -2023 prostate removal 9)chronic back pain -stimulator to lower back -pain management [facility] Visit Type: Pre-Admission Testing Visit Labs Ordered: YES - PER PAT PROTOCOL Cbc Sleep Referral Ordered: na Total time spent (which include face to face and non face to face encounters) : 30 minutes Toxic drug monitoring/narrow therapeutic index drug monitoring : # Drug name : synthroid # Route administered : po # Method of monitoring : tsh PAT Protocol referenced includes: 1. Anesthesia Lab Protocol Orders 2. Perioperative Cardiovascular Risk Assessment 3. Anesthesia Assessment 4. Pain Assessment and Acute Pain Service Consult (if appropriate) 5. Medical Clearance/Consult from Internal Medicine ([facility]) 6. Shower/Wash Order (for designated surgeries) 7. YEISON Screen and Sleep Clinic Referral (if appropriate) History Of Present Illness: 78 y.o. male who we are asked to see/evaluate by [place] [address] for pre-operative evaluation prior to . Case: [id number] Date/Time: 03/10/24 0730 Procedures: INSERTION MALE URETHRAL SLING (Perineum) [83974 CPT(R)] - 5 HOURS. POSSIBLE FLEXIBLE CYSTOSCOPY (Urethra) [86646 CPT(R)] INSERTION OF PENILE PROSTHESIS (Penis) [32050 CPT(R)] LOCAL TISSUE REARRANGEMENT [46275 CPT(R)] Anesthesia type: General Dr Linda office notes 01/02/2024 Impression: Diagnoses and all orders for this visit: Stress incontinence, male Erectile dysfunction after radical prostatectomy Prostate cancer (HCC) . Plan: Reviewed treatment options for male stress incontinence with patient and his today Based on symptoms of 2-3 pads per day, would likely be a good candidate for a male urethral sling He will try stopping his stream during urination over the next couple of weeks and focus on how many pads he is using every day Will have him return for office cystoscopy to rule out any urethral pathology or bladder pathology For erectile dysfunction we discussed treatment options including higher doses of oral medications, vacuum erection device, (more content not included)... [facility] 02-28-2024 Telephone encounter Note LVM advising of appointment time changing from 4:00 PM to 7:30 AM on 04/17/2024. Mailed appointment letter also [facility] 02-28-2024 Miscellaneous Notes LVM advising of appointment time changing from 4:00 PM to 7:30 AM on 04/17/2024. Mailed appointment letter also Returned call to patient's Nicole. Advised her that yes, the procedure for the patient's Erectile Dysfunction will be performed at the same time as the sling procedure. She verbalized understanding Forwarding to surgical schedulers for advisement. Name of Caller: Nicole Contact Reason for Appointment: Nicole called with Gamaliel on the phone asking if patient is just going to be having the sling done at his surgery appointment on 03/10/24. Nicole stated that patient was under the impression that he would have the surgery for ED done at the same time. Please call Nicole back to advise. Office Name: Urology Medication Refills need, if any: N/A Medication Name: N/A Surgery packet mailed Patient's called to inquire about the patient's surgery details. All information given for PAT and surgery but they would still like a surgery packet mailed to their house. Appt with Dr. Babin on 02/14/24 has been cancelled, PSA in chart. OR Request for Reji PROCEDURE: Insertion of male urethral sling (36461) , possible flexible cystoscopy (85896) Insertion of penile prosthesis 15183, local tissue rearrangement (dartos flap) 45262, 10189 DIAGNOSIS: erectile dysfunction and male stress urinary incontinence FACILITY: [facility] DETAILS: OUTPT ANESTHESIA: GENERAL TIME REQUESTED: 5 hr DATE REQUESTED: ROUTINE SURGERY ORDERS: will be Placed by Yesi Linda POST OP FOLLOW UP: 5 week IPP activation/teaching REP REQUESTED: Yes - Unda SPECIAL NEEDS: open room , trumpf bed PAT: yes MEDICAL CLEARANCE: No documented in this encounter [facility] 02-11-2024 Note Returned call to pat abent's Nicole. Advised her that yes, the procedure for the patient's Erectile Dysfunction will be performed at the same time as the sling procedure. She verbalized understanding [facility] 02-11-2024 Telephone encounter Note Returned call to patient's Nicole. Advised her that yes, the procedure for the patient's Erectile Dysfunction will be performed at the same time as the sling procedure. She verbalized understanding [facility] 02-11-2024 Miscellaneous Notes Returned call to patient's Nicole. Advised her that yes, the procedure for the patient's Erectile Dysfunction will be performed at the same time as the sling procedure. She verbalized understanding Forwarding to surgical schedulers for advisement. Name of Caller: Nicole Contact Reason for Appointment: Nicole called with Gamaliel on the phone asking if patient is just going to be having the sling done at his surgery appointment on 03/10/24. Nicole stated that patient was under the impression that he would have the surgery for ED done at the same time. Please call Nicole back to advise. Office Name: Urology Medication Refills need, if any: N/A Medication Name: N/A Surgery packet mailed Patient's called to inquire about the patient's surgery details. All information given for PAT and surgery but they would still like a surgery packet mailed to their house. Appt with Dr. Babin on 02/14/24 has been cancelled, PSA in chart. OR Request for Reji PROCEDURE: Insertion of male urethral sling (32677) , possible flexible cystoscopy (56996) Insertion of penile prosthesis 88602, local tissue rearrangement (dartos flap) 08458, 65711 DIAGNOSIS: erectile dysfunction and male stress urinary incontinence FACILITY: [facility] DETAILS: OUTPT ANESTHESIA: GENERAL TIME REQUESTED: 5 hr DATE REQUESTED: ROUTINE SURGERY ORDERS: will be Placed by Yesi Linda POST OP FOLLOW UP: 5 week IPP activation/teaching REP REQUESTED: Yes - Unda SPECIAL NEEDS: open room , trumpf bed PAT: yes MEDICAL CLEARANCE: No documented in this encounter [facility] 02-11-2024 Telephone encounter Note Forwarding to surgical schedulers for advisement. [facility] 02-11-2024 Telephone encounter Note Name of Caller: Nicole Contact Reason for Appointment: Nicole called with Gamaliel on the phone asking if patient is just going to be having the sling done at his surgery appointment on 03/10/24. Nicole stated that patient was under the impression that he would have the surgery for ED done at the same time. Please call Nicole back to advise. Office Name: Urology Medication Refills need, if any: N/A Medication Name: N/A [facility] 02-11-2024 Telephone encounter Note Surgery packet mailed [facility] 02-11-2024 Telephone encounter Note Patient's called to inquire about the patient's surgery details. All information given for PAT and surgery but they would still like a surgery packet mailed to their house. Appt with Dr. Babin on 02/14/24 has been cancelled, PSA in chart. [facility] 02-01-2024 Note OR Request for Reji PROCEDURE: Insertion of male urethral sling (00114) , possible flexible cystoscopy (22115) Insertion of penile prosthesis 80820, local tissue rearrangement (dartos flap) 57250, 38814 DIAGNOSIS: erectile dysfunction and male stress urinary incontinence FACILITY: [facility] DETAILS: OUTPT ANESTHESIA: GENERAL TIME REQUESTED: 5 hr DATE REQUESTED: ROUTINE SURGERY ORDERS: will be Placed by Yesi Linda POST OP FOLLOW UP: 5 week IPP activation/teaching REP REQUESTED: Yes - Unda SPECIAL NEEDS: open room , trumpf bed PAT: yes MEDICAL CLEARANCE: No [facility] 02-01-2024 Telephone encounter Note OR Request for Reji PROCEDURE: Insertion of male urethral sling (54843) , possible flexible cystoscopy (94709) Insertion of penile prosthesis 25129, local tissue rearrangement (dartos flap) 11911, 41820 DIAGNOSIS: erectile dysfunction and male stress urinary incontinence FACILITY: [facility] DETAILS: OUTPT ANESTHESIA: GENERAL TIME REQUESTED: 5 hr DATE REQUESTED: ROUTINE SURGERY ORDERS: will be Placed by Yesi Linda POST OP FOLLOW UP: 5 week IPP activation/teaching REP REQUESTED: Yes - Unda SPECIAL NEEDS: open room , trumpf bed PAT: yes MEDICAL CLEARANCE: No [facility] 01-30-2024 History of Present illness Narrative Cystoscopy Procedure Note Pre-operative Diagnosis: Stress urinary incontinence 04/23/2023 robotic prostatectomy Post-operative Diagnosis: same Procedure Details The risks, benefits, complications, treatment options, and expected outcomes were discussed with the patient. The patient and provider concurred with the proposed plan, giving informed consent. Written consent was obtained and scanned into the chart. Cystoscopy was performed without incident. The patient was placed in the supine position, prepped with Betadine, and draped in the usual sterile fashion. Lidocaine jelly was instilled into the urethra to effect local anesthesia. The sheathed digital flexible cystoscope was passed into the bladder without incident Findings: External genitalia: normal, orthotopic meatus Urethra: penile urethra normal, bulbar urethra normal, no stricture good coaptation of external sphincter Prostate: absent Bladder: No tumors, diverticulae, stones, or mucosal abnormalities were seen Ureteral orifices: Normal position and effluxing clear urine. Specimens: voided urine for culture Complications: None. Patient tolerated the procedure well Plan: Based on 2-3 ppd , ability to stop stream Will plan on insertion of male urethral sling for ADELSO Would also like to proceed with IPP insertion for erectile dysfunction after robotic prostatectomy Discussed benefits/risks/indications of penile prosthesis implant surgery including infection, mechanical device malfunction, need for additional procedures, urethral injury, blood loss, scaring, change in sensation, and pain in addition to general risks of anesthesia and he elects to proceed with surgery Reviewed expected postoperative course w/ patient, including timeline for follow-up visit and activation. Patient was advised that HbA1c must be < 8.0 to proceed with surgery. He should hold all anticoagulants for 7 days prior to surgery (including aspirin, plavix, brilinta, eliquis, xarelto, pradaxa, coumadin). NSAIDS (ibuprofen, naproxen, naprosen, motrin) should be held 7 days prior as well if patient is able. He should shower with antibacterial soap for 3 days prior to surgery, taking care to focus on the genital region. No shave prep is necessary prior to surgery We discussed treatment options for male stress urinary incontinence including observation, penile clamp, external urinary catheter, male urethral sling, artificial urinary sphincter, as well as urinary diversion. Patient is interested in proceeding with placement of MALE URETHRAL SLING. He understands there is a higher dry rate with artificial sphincter, but after weighing his options we agreed that he is a good candidate for sling. We discussed risks of the procedure, which include but are not limited to bleeding, infection, pain, damage to urethra, urinary retention, continued urinary leakage, change in sensation and cosmesis, need for additional procedure and erectile dysfunction.. He understands that damage to the urethra or exposure of the sling would necessitate removal of sling with urethral repair and rest. He understands that there may be continued leakage after sling placement. Artificial sphincter could be considered in the future but comes with increased risk due to prior surgery.There is also a risk of post operative urinary retention, which may necessitate intermittent clean catheterization or indwelling catheter for a period of time after surgery. While this typically resolves, it can be permanent in some cases. He also understands there are risks associated with general anesthesia, and he agrees to proceed. Aric Linda DO [facility] [address], [address] [place] [address] Office: Fax: documented in this encounter [facility] 01-30-2024 Instructions rAic Linda DO - 01/30/2024 11:20 AM EST Pre and Postoperative Instructions - Male Sling Prior to Surgery: You will be given a copy of the BLOOD THINNER POLICY prior to your procedure. It is important that you adhere to these instructions and stop blood thinning medications (with physician approval) prior to surgery. For 3 days leading up to surgery, you will be asked to shower with ANTIBACTERIAL SOAP. Please scrub the genital area thoroughly. You will undergo an office cystoscopy to look inside the bladder and ensure there is no scar tissue. We will also check a urine sample to ensure you have no infection leading up to surgery. Your Hemoglobin A1c must be <9.0% in order to safely proceed with surgery. You should refrain from using all tobacco products, as these greatly impact wound healing. Day of Surgery: Following surgery, you may be admitted for overnight observation. If this is the case, a temporary catheter will be left in your bladder overnight. Most patients are discharged home the day of surgery. The catheter will be removed before you are discharged home and we will ensure you are able to empty your bladder. If you are unable to empty your bladder after surgery (which can happen in some men), know this is usually temporary and resolves within a couple of days. We will have two options if this is the case. Reinsert an indwelling catheter to temporarily drain your bladder and have you follow-up in the office in a couple of days. Teach you how to intermittently pass a small catheter to empty your bladder. Whether you are discharged or kept for observation, use ice packs/cool compresses to help with swelling and pain (do not apply directly to the skin). Your diet will be advanced as tolerated. Take it easy, some patients have nausea after anesthesia. What to expect after surgery: You will have one incision behind the scrotum and two small incisions that will be closed with absorbable sutures and skin glue will be applied. If the wounds open up, are red, or your experience drainage please contact the office immediately as this can be a sign of infection. You may experience some bruising or swelling. This is considered normal. Bruising may occur within the penis, scrotum, and area behind the scrotum (perineum). Continue to use cool compresses (bag of frozen vegetables works well), applying for 20 minutes at a time and then taking a break. Do not apply ice directly to your skin. Do not fall asleep with ice on your skin. If bruising is excessive, PLEASE CONTACT THE OFFICE so that we may evaluate you Use supportive underwear (does not have to be super tight), some people find this helps with discomfort. If you stopped any blood thinning medications, you may resume these 48 hours after surgery. It is ok to start taking NSAIDs (Ibuprofen/Motrin/Advil/Aleve/Tord adol) immediately after surgery. Do not take multiple NSAIDs at the same time. These should be taken with food to help prevent GI upset. If you notice unusual bleeding or bruising, however, please contact the office. Avoid strenuous physical activity for 4-6 weeks. You should not lift more than about 20-25 lbs at once. You may walk around the house, and may go up/down stairs but try to limit your physical activity the first few days. Avoid all perineal pressure for 8 weeks. This includes the following bicycles horseback riding motorcycle, snowmobile Riding lawnmower Rock climbing/ anything requiring a harness around the pelvis You may shower 24-48 hours after surgery, and should continue to do so daily. Do not scrub the incisions, but it is ok to allow soapy water to wash over the incisions. Do not enter a swimming pool/hot tub/urban until you have been seen at your follow up appointment to ensure complete healing. Avoid squatting or spreading your hips open widely for the first 4-6 weeks. This is to prevent the sling from moving as it scars into place. Follow-up: You will be seen by myself or one of our Advanced Practice Providers about 3 and sometimes again at 6 weeks after surgery to ensure you are still doing well, or sooner as needed. If you are discharged with a catheter or are taught to self catheterize, you will be seen in a few days to re-evaluate emptying. I will see you back about 3 months after the surgery, and sooner as needed. Tissue healing and remodeling can take several months, and nerve regeneration can take up to a year. You may experience changes in sensation at first. This will likely change/evolve over time as the body continues to heal and I encourage you to be patient with your body. If, at any time, you experience any uncontrolled pain, urinary retention, swelling, fever, drainage from the incision site, or have any other cause for concern please contact the office RACHEL. If you experience a fever > 100.4 please go to the nearest ER for evaluation. Aric Linda DO [facility] [address], [address] [place] [address] Office: Fax: Pre and Postoperative Instructions - Insertion of Penile Prosthesis Prior to Surgery : You will be given a copy of the BLOOD THINNER POLICY prior to your procedure. It is important that you adhere to these instructions and stop blood thinning medications (with physician approval) prior to surgery. For 3 days leading up to surgery, you will be asked to shower with ANTIBACTERIAL SOAP. Please scrub the genital area thoroughly. Your Hemoglobin A1c must be <8.5 % in order to safely proceed with surgery. You should refrain from using all tobacco products, as these greatly impact wound healing. Any infection on the skin at the day of the surgery will require us to cancel and re-schedule surgery. Please contact the office should you develop an open wound anywhere on the body (including diabetic ulcers). Day of Surgery: You will be given instructions prior to day of surgery but should expect to arrive at least 2 HOURS prior to surgery time. If you surgery is later in the day, it is not uncommon that the time may change and you may be delayed Following surgery, you may be admitted for overnight observation. If this is the case, a temporary catheter will be left in your bladder overnight. The catheter will be removed before you are discharged home and we will ensure you are able to void before you go home. If you are kept overnight for observation, the prosthesis will be kept inflated. It will be deflated prior to your discharge home. Most patient will be discharged home after surgery. We will ensure you are able to empty your bladder before discharge. The prosthesis is left with a small amount of fluid in the cylinders (partially inflated) while you are healing so it will not be completely empty Whether you are discharged or kept for observation, use ice packs/cool compresses to help with swelling and pain (do not apply directly to the skin). 20 minutes on, 20 minutes off. Your diet will be advanced as tolerated. Take it easy, some patients have nausea after anesthesia. What to expect after surgery: You will have one or two small incisions that will be closed with absorbable sutures and skin glue will be applied. Some people may have a dressing over top which can be removed after 36-48 hours. If the wounds open up, are red, or you experience drainage please contact the office immediately as this can be a sign of infection. You are likely to experience some bruising or swelling. This is considered normal. Bruising may occur within the penis, scrotum, and area behind the scrotum (perineum). Continue to use cool compresses (bag of frozen vegetables works well), applying for 20 minutes at a time and then taking a break. Do not apply ice directly to your skin. Do not fall asleep with ice on your skin. If bruising is excessive, PLEASE CONTACT THE OFFICE so that we may evaluate you in person Use supportive underwear (does not have to be super tight), some people find this helps with discomfort. If you stopped any blood thinning medications, you may resume these 48 hours after surgery. It is ok to start taking NSAIDs (Ibuprofen/Motrin/Advil/Aleve/Tord adol) immediately after surgery. Do not take multiple NSAIDs at the same time. These should be taken with food to help prevent GI upset. If you notice unusual bleeding or bruising, however, please contact the office. Avoid strenuous physical activity for 4-6 weeks. You should not lift more than about 20-25 lbs at once. You may walk around the house, and may go up/down stairs but try to limit your physical activity the first few days. Avoid all perineal pressure for 4-6 weeks. This includes the following bicycles horseback riding motorcycle snowmobile Riding lawnmower Rock climbing/ anything requiring a harness around the pelvis You may shower 24-48 hours after surgery, and should continue to do so daily. Do not scrub the incisions, but it is ok to allow soapy water to wash over the incisions. Do not enter a swimming pool/hot tub/urban until you have been seen at your follow up appointment to ensure complete healing. Do not attempt to use or cycle your device until you have been seen in clinic and taught how. Follow-up: You have been given information regarding your prosthesis. I encourage you and your partner to look this over and become familiar with your device. You should feel the pump in the scrotum and gently tug down on it daily. Visit [email or web address] for more information regarding your prosthesis. At 5 - 6 weeks post-operatively, you will be seen in the office by one of our Advanced Practice Providers or myself to undergo teaching and device activation. Bring your partner to this visit if possible so that you may both become familiar with its use. You will be given a copy of the Cycling protocol at this visit as well. I will see you back about 3 months after the surgery, and sooner as needed. Tissue healing and remodeling can take several months, and nerve regeneration can take up to a year. You may experience changes in sensation at first. This will likely change/evolve over time as the body continues to heal and I encourage you to be patient with your body. If, at any time, you experience any uncontrolled pain, swelling, fever, drainage from the incision site, or have any other cause for concern please contact the office RACHEL. If you experience a fever > 100.4 please go to the nearest ER for evaluation. Aric Linda DO [facility] [address] [place] [address], [address] [place] [address] Office: Fax: documented in this encounter [facility] 01-30-2024 Note Cystoscopy Procedure Note Pre-operative Diagnosis: Stress urinary incontinence 04/23/2023 robotic prostatectomy Post-operative Diagnosis: same Procedure Details The risks, benefits, complications, treatment options, and expected outcomes were discussed with the patient. The patient and provider concurred with the proposed plan, giving informed consent. Written consent was obtained and scanned into the chart. Cystoscopy was performed without incident. The patient was placed in the supine position, prepped with Betadine, and draped in the usual sterile fashion. Lidocaine jelly was instilled into the urethra to effect local anesthesia. The sheathed digital flexible cystoscope was passed into the bladder without incident Findings: External genitalia: normal, orthotopic meatus Urethra: penile urethra normal, bulbar urethra normal, no stricture good coaptation of external sphincter Prostate: absent Bladder: No tumors, diverticulae, stones, or mucosal abnormalities were seen Ureteral orifices: Normal position and effluxing clear urine. Specimens: voided urine for culture Complications: None. Patient tolerated the procedure well Plan: Based on 2-3 ppd , ability to stop stream Will plan on insertion of male urethral sling for ADELSO Would also like to proceed with IPP insertion for erectile dysfunction after robotic prostatectomy Discussed benefits/risks/indications of penile prosthesis implant surgery including infection, mechanical device malfunction, need for additional procedures, urethral injury, blood loss, scaring, change in sensation, and pain in addition to general risks of anesthesia and he elects to proceed with surgery Reviewed expected postoperative course w/ patient, including timeline for follow-up visit and activation. Patient was advised that HbA1c must be < 8.0 to proceed with surgery. He should hold all anticoagulants for 7 days prior to surgery (including aspirin, plavix, brilinta, eliquis, xarelto, pradaxa, coumadin). NSAIDS (ibuprofen, naproxen, naprosen, motrin) should be held 7 days prior as well if patient is able. He should shower with antibacterial soap for 3 days prior to surgery, taking care to focus on the genital region. No shave prep is necessary prior to surgery We discussed treatment options for male stress urinary incontinence including observation, penile clamp, external urinary catheter, male urethral sling, artificial urinary sphincter, as well as urinary diversion. Patient is interested in proceeding with placement of MALE URETHRAL SLING. He understands there is a higher dry rate with artificial sphincter, but after weighing his options we agreed that he is a good candidate for sling. We discussed risks of the procedure, which include but are not limited to bleeding, infection, pain, damage to urethra, urinary retention, continued urinary leakage, change in sensation and cosmesis, need for additional procedure and erectile dysfunction.. He understands that damage to the urethra or exposure of the sling would necessitate removal of sling with urethral repair and rest. He understands that there may be continued leakage after sling placement. Artificial sphincter could be considered in the future but comes with increased risk due to prior surgery.There is also a risk of post operative urinary retention, which may necessitate intermittent clean catheterization or indwelling catheter for a period of time after surgery. While this typically resolves, it can be permanent in some cases. He also understands there are risks associated with general anesthesia, and he agrees to proceed. Aric Linda, DO [facility] [address], [address] [place] [id number] Office: Fax: [facility] 01-11-2024 Telephone encounter Note Patient calls requesting refill: Requested Prescriptions Requested Prescriptions Pending Prescriptions Disp Refills rivaroxaban (XARELTO) 20 mg tablet 90 tablet 3 Sig: Take 1 tablet by mouth daily with dinner. @RXAUTHPROV@ Date of last visit: 01/07/2024 Phone #: [phone] (home) The patient's preferred pharmacy has been captured for this encounter? yes Louise Chaudhary MA January 11, 2024 8:41 AM [facility] 01-11-2024 Miscellaneous Notes Patient calls requesting refill: Requested Prescriptions Requested Prescriptions Pending Prescriptions Disp Refills rivaroxaban (XARELTO) 20 mg tablet 90 tablet 3 Sig: Take 1 tablet by mouth daily with dinner. @RXAUTHPROV@ Date of last visit: 01/07/2024 Phone #: [phone] (home) The patient's preferred pharmacy has been captured for this encounter? yes Louise Chaudhary MA January 11, 2024 8:41 AM documented in this encounter [facility] 01-07-2024 History of Present illness Narrative [facility] Nir Le MD SUBJECTIVE: Cade Islas is a 78 year old male who is here today for a follow up visit. The patient is doing well from the cardiovascular standpoint. He denies chest pain, shortness of breath, palpitations, PND, orthopnea, syncope, near-syncope, or edema. PAST MEDICAL HISTORY Diagnosis Date Anxiety AV node dysfunction Benign hypertension BPH (benign prostatic hyperplasia) Chronic pain CKD (chronic kidney disease) stage 2, GFR 60-89 ml/min DM II (diabetes mellitus, type II) ([facility]) H/O echocardiogram 02/21/2023 EF 64 5%, no significant valvular abnormalities History of stress test 09/25/2022 EF 77%, no ischemia, no scar Hypothyroidism Insomnia assisted current use of anticoagulant Xarelto 20 mg qd Mixed hyperlipidemia Obesity (BMI 30.0-34.9) Osteoarthritis of multiple joints Pacemaker 04/04/2023 Dual pacer (Biotronik) LBB area pacing. Sick sinus syndrome, AV node dysfunction, paroxysmal A-fib, LVEF 64% by echo, BMI 31, PVCs, Xarelto anticoagulation. Pacer by Dr. Acuna at [facility]. PAF (paroxysmal atrial fibrillation) (HCC) Polyneuropathy Prostate CA (HCC) PVC's (premature ventricular contractions) Sinus bradycardia PAST SURGICAL HISTORY Procedure Laterality Date F TRIAL SPINAL CORD STIMULATOR FORCEPS ESOPHAGEAL BIOPSY PERFORMED HAND LEFT OP SURGERY x5 HAND RIGHT OP SURGERY x 4 PACEMAKER DUAL Left 04/04/2023 Dual pacer (Biotronik) LBB area pacing. Sick sinus syndrome, AV node dysfunction, paroxysmal A-fib, LVEF 64% by echo, BMI 31, PVCs, Xarelto anticoagulation. Pacer by Dr. Acuna at [facility]. PROSTATE BIOPSY REMOVAL GALLBLADDER 01/2023 FAMILY HISTORY Problem Relation Age of Onset No Known Problems Brother Cancer Maternal Grandmother SOCIAL HISTORY: Social History Tobacco Use Smoking status: Never Passive exposure: Never Smokeless tobacco: Never Vaping Use Vaping status: Never Used Substance Use Topics Alcohol use: Never Drug use: Never ALLERGIES: Patient has no known allergies. CURRENT MEDICATIONS: Current Outpatient Medications Medication Sig rivaroxaban (XARELTO) 20 mg tablet Take 1 tablet by mouth daily with dinner. sotalol (BETAPACE) 240 mg tablet Take 1 tablet by mouth every 12 hours. HYDROcodone-Acetaminophen (NORCO) 7.5-325 mg per tablet Take 1 tablet by mouth every 6 hours as needed. Cholecalciferol, Vitamin D3, 125 mcg/mL (5,000 unit/mL) drop Take 5,000 Units by mouth every morning. semaglutide (OZEMPIC) 2 mg/dose (8 mg/3 mL) pen injector Inject 2 mg subcutaneously one time a week. Takes on Wednesdays VITAMIN B COMPLEX ORAL Take 1 tablet by mouth once daily. amitriptyline (ELAVIL) 100 mg tablet Take 100 mg by mouth daily at bedtime. atorvastatin (LIPITOR) 10 mg tablet Take 10 mg by mouth daily at bedtime. fluticasone (FLONASE) 50 mcg/actuation nasal spray Use 1 [place] in each nostril as needed. gabapentin (NEURONTIN) 600 mg tablet Take 600 mg by mouth three times a day. levothyroxine (SYNTHROID) 50 mcg tablet Take 50 mcg by mouth daily before breakfast. lisinopril (ZESTRIL) 40 mg tablet Take 40 mg by mouth two times a day. metFORMIN (GLUCOPHAGE) 500 mg tablet Take 1,000 mg by mouth two times a day with meals. potassium chloride SR (MICRO-K) 10 mEq CR capsule Take 10 mEq by mouth every morning. No current facility-administered medications for this visit. Review of Systems Constitutional: Negative for activity change and fever. Respiratory: Negative for apnea, cough, chest tightness, shortness of breath, wheezing and stridor. Cardiovascular: Negative for chest pain, palpitations and leg swelling. Gastrointestinal: Negative for abdominal distention, diarrhea and vomiting. Musculoskeletal: Negative for joint swelling, neck pain and neck stiffness. Skin: Negative for color change, pallor and rash. Neurological: Negative for dizziness, syncope, weakness, light-headedness and numbness. Hematological: Does not bruise/bleed easily. Psychiatric/Behavioral: Negative for agitation, behavioral problems and confusion. The patient is not nervous/anxious. All other systems reviewed and are negative. PHYSICAL EXAMINATION: 01/07/24 1015 BP: 112/72 BP Position: Sitting Pulse: 60 Weight: 94.3 kg (208 lb) Height: 172.7 cm (5' 8) Last 3 Encounter BP Readings: Date: BP: 06/29/2023 142/67 05/14/2023 122/72 04/30/2023 128/64 Last 3 Encounter Pulse Readings: Date: Pulse: 06/29/2023 67 05/14/2023 72 04/30/2023 60 Last 3 Encounter Wt Readings: Date: Wt: 06/29/2023 93.4 kg (206 lb) 04/17/2023 93.4 kg (206 lb) 03/21/2023 92.3 kg (203 lb 7.8 oz) Potassium Date Value 10/08/2023 3.8 mmol/L 05/07/2021 4.1 MMOL/L Sodium Date Value 10/08/2023 138 mmol/L 05/07/2021 139 MMOL/L Magnesium Date Value 04/06/2023 2.0 mg/dL 05/07/2021 2.3 MG/DL Creatinine Date Value 10/08/2023 0.97 mg/dL 05/07/2021 1.09 MG/DL BUN Date Value 10/08/2023 15 mg/dL 05/07/2021 28 MG/DL Glucose Date Value 10/08/2023 89 mg/dL 05/07/2021 130 MG/DL INR (no units) Date Value 10/08/2023 1.2 10/25/2020 1.05 TSH Date Value 10/08/2023 2.198 mIU/L 05/07/2021 1.588 UIU/ML Physical Exam Vitals and nursing note reviewed. Constitutional: General: He is not in acute distress. Appearance: Normal appearance. He is not toxic-appearing. HENT: Head: Normocephalic and atraumatic. Nose: Nose normal. Mouth/Throat: Mouth: Mucous membranes are moist. Neck: Vascular: No carotid bruit. Cardiovascular: Rate and Rhythm: Normal rate and regular rhythm. Pulses: Normal pulses. Heart sounds: Normal heart sounds. No murmur heard. No friction rub. No gallop. Pulmonary: Effort: Pulmonary effort is normal. No respiratory distress. Breath sounds: Normal breath sounds. No stridor. No wheezing, rhonchi or rales. Chest: Chest wall: No tenderness. Abdominal: General: Abdomen is flat. There is no distension. Palpations: Abdomen is soft. There is no mass. Tenderness: There is no abdominal tenderness. Musculoskeletal: General: No swelling. Cervical back: Normal range of motion. No muscular tenderness. Right lower leg: No edema. Left lower leg: No edema. Skin: General: Skin is warm and dry. Capillary Refill: Capillary refill takes less than 2 seconds. Coloration: Skin is not jaundiced or pale. Findings: No bruising or rash. Neurological: General: No focal deficit present. Mental Status: He is alert and oriented to person, place, and time. Mental status is at baseline. Motor: No weakness. Gait: Gait normal. Psychiatric: Mood and Affect: Mood normal. Behavior: Behavior normal. Thought Content: Thought content normal. Judgment: Judgment normal. Diagnostic results: Pacemaker check: Summary: Normal device function. Normal pacing and sensing threshold. Battery: 9 yrs until RADHA. Histogram: ok. Atrial episodes: 15 AFIB events, 3% of the time. None since September 2023. Ventricular episodes: none. Changes: per auto threshold testing. ASSESSMENT/PLAN: 1. Benign hypertension - ICD9: 401.1, ICD10: I10 (primary diagnosis) Target BP 130/80 or less. The pt is on chronic medications. Blood pressure well-controlled on current medications. 2. Mixed hyperlipidemia - ICD9: 272.2, ICD10: E78.2 Patient is on atorvastatin 10 mg daily. Managed by primary care physician. 3. PAF (paroxysmal atrial fibrillation) (HCC) - ICD9: 427.31, ICD10: I48.0 The patient is on sotalol 240 mg twice daily. He is maintaining sinus rhythm by pacemaker interrogation. We will plan to continue same medications and monitor for recurrent atrial fibrillation. 4. assisted current use of anticoagulant - ICD9: V58.61, ICD10: Z79.01 Patient is on Xarelto 20 mg daily. The pt is not complaining of any signs and symptoms of bleeding. The patient was instructed to call with any problems. 5. Pacemaker - ICD9: V45.01, ICD10: Z95.0 The patient has a dual-chamber pacemaker. Normal function by today's interrogation. We will plan to monitor the device by every 3-month checks and as needed. 6. AV node dysfunction - ICD9: 426.89, ICD10: I45.89 Chronic, the patient has a dual-chamber pacemaker. Stable. 7. Sinus bradycardia Chronic, the patient has a dual-chamber pacemaker. Stable. documented in this encounter [facility] 01-07-2024 Note HNO ID: [id number] Author: BRUNILDA CRUZ APRN.EPIC AMBULATORY ANALYST Service: ? Author Type: Nurse Practitioner Type: Progress Notes Filed: 01/07/2024 10:28 Note Text: [facility] Nir Le MD SUBJECTIVE: Cade Islas is a 78 year old male who is here today for a follow up visit. The patient is doing well from the cardiovascular standpoint. He denies chest pain, shortness of breath, palpitations, PND, orthopnea, syncope, near-syncope, or edema. PAST MEDICAL HISTORY Diagnosis Date Anxiety AV node dysfunction Benign hypertension BPH (benign prostatic hyperplasia) Chronic pain CKD (chronic kidney disease) stage 2, GFR 60-89 ml/min DM II (diabetes mellitus, type II) ([facility]) H/O echocardiogram 02/21/2023 EF 64? 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 Sick sinus syndrome, AV node dysfunction, paroxysmal A-fib, LVEF 64% by echo, BMI 31, PVCs, Xarelto anticoagulation. Pacer by Dr. Acuna at [facility]. PAF (paroxysmal atrial fibrillation) ([facility]) Polyneuropathy Prostate CA ([facility]) PVC's (premature ventricular contractions) Sinus bradycardia PAST SURGICAL HISTORY Procedure Laterality Date F TRIAL SPINAL CORD STIMULATOR FORCEPS ESOPHAGEAL BIOPSY PERFORMED HAND LEFT OP SURGERY x5 HAND RIGHT OP SURGERY x 4 PACEMAKER DUAL Left 04/04/2023 Dual pacer (Biotronik) LBB area pacing. Sick sinus syndrome, AV node dysfunction, paroxysmal A-fib, LVEF 64% by echo, BMI 31, PVCs, Xarelto anticoagulation. Pacer by Dr. Acuna at [facility]. PROSTATE BIOPSY REMOVAL GALLBLADDER 01/2023 FAMILY HISTORY Problem Relation Age of Onset No Known Problems Brother Cancer Maternal Grandmother SOCIAL HISTORY: Social History Tobacco Use Smoking status: Never Passive exposure: Never Smokeless tobacco: Never Vaping Use Vaping status: Never Used Substance Use Topics Alcohol use: Never Drug use: Never ALLERGIES: Patient has no known allergies. CURRENT MEDICATIONS: Current Outpatient Medications Medication Sig rivaroxaban (XARELTO) 20 mg tablet Take 1 tablet by mouth daily with dinner. sotalol (BETAPACE) 240 mg tablet Take 1 tablet by mouth every 12 hours. HYDROcodone-Acetaminophen (NORCO) 7.5-325 mg per tablet Take 1 tablet by mouth every 6 hours as needed. Cholecalciferol, Vitamin D3, 125 mcg/mL (5,000 unit/mL) drop Take 5,000 Units by mouth every morning. semaglutide (OZEMPIC) 2 mg/dose (8 mg/3 mL) pen injector Inject 2 mg subcutaneously one time a week. Takes on Wednesdays VITAMIN B COMPLEX ORAL Take 1 tablet by mouth once daily. amitriptyline (ELAVIL) 100 mg tablet Take 100 mg by mouth daily at bedtime. atorvastatin (LIPITOR) 10 mg tablet Take 10 mg by mouth daily at bedtime. fluticasone (FLONASE) 50 mcg/actuation nasal spray Use 1 [place] in each nostril as needed. gabapentin (NEURONTIN) 600 mg tablet Take 600 mg by mouth three times a day. levothyroxine (SYNTHROID) 50 mcg tablet Take 50 mcg by mouth daily before breakfast. lisinopril (ZESTRIL) 40 mg tablet Take 40 mg by mouth two times a day. metFORMIN (GLUCOPHAGE) 500 mg tablet Take 1,000 mg by mouth two times a day with meals. potassium chloride SR (MICRO-K) 10 mEq CR capsule Take 10 mEq by mouth every morning. No current facility-administered medications for this visit. Review of Systems Constitutional: Negative for activity change and fever. Respiratory: Negative for apnea, cough, chest tightness, shortness of breath, wheezing and stridor. Cardiovascular: Negative for chest pain, palpitations and leg swelling. Gastrointestinal: Negative for abdominal distention, diarrhea and vomiting. Musculoskeletal: Negative for joint swelling, neck pain and neck stiffness. Skin: Negative for color change, pallor and rash. Neurological: Negative for dizziness, syncope, weakness, light-headedness and numbness. Hematological: Does not bruise/bleed easily. Psychiatric/Behavioral: Negative for agitation, behavioral problems and confusion. The patient is not nervous/anxious. All other systems reviewed and are negative. PHYSICAL EXAMINATION: 01/07/24 1015 BP: 112/72 BP Position: Sitting Pulse: 60 Weight: 94.3 kg (208 lb) Height: 172.7 cm (5' 8) Last 3 Encounter BP Readings: Date: BP: 06/29/2023 142/67 05/14/2023 122/72 04/30/2023 128/64 Last 3 Encounter Pulse Readings: Date: Pulse: 06/29/2023 67 05/14/2023 72 04/30/2023 60 Last 3 Encounter Wt Readings: Date: Wt: 06/29/2023 93.4 kg (206 lb) 04/17/2023 93.4 kg (206 lb) 03/21/2023 92.3 kg (203 lb 7.8 oz) Potassium Date Value 10/08/2023 3.8 mmol/L 05/07/2021 4.1 MMOL/L Sodium Date Value 10/08/2023 138 mmol/L 05/07/2021 139 MMOL/ (more content not included)... [facility] 01-07-2024 History of Present illness Narrative Dual Pacer in office Check Date: January 07, 2024 Time: 9:14 AM Devices: Implants Lead Ra Lead Biotronik-04/04/2023 - Implanted Heart Model/Cat number: REBECA Swift [id number] Serial number: [id number] Reservations Agent: [employer] Lot number: LEFT AXILLARY VEIN Size: Right Atrial Pacing Lead Left Bundle Branch Area Ventricular Lead Biotronik-04/04/2023 - Implanted Heart Model/Cat number: REBECA Swift [id number] Serial number: [id number] Reservations Agent: [employer] Lot number: LEFT AXILLARY VEIN Size: Left Bundle Branch Area Ventricular Lead Pacemaker Dual Pacer Biotronik-04/04/2023 - Implanted (Left) Chest Wall Model/Cat number: [id number] Serial number: DUPLICATE Reservations Agent: [employer] Lot number: INITIAL DUAL PACER; LBB AREA PACING Size: Sick sinus syndrome, AV node dysfunction, paroxysmal A-fib, LVEF 64% by echo, BMI 31, PVCs, Xarelto anticoagulation. Last Interrogation Date: 04-04-2023 Estimated Remaining Longevity: 9 years until RADHA Underlying Rhythm: Sinus Rhythm Interrogation Performed by: Janelle Chaudhary LPN Programming Parameters Mode: DDD-CLS Lower Rate: 60 Upper Track: 140 Upper Sensor: 130 Paced AV Delay: 220 Sensed AV Delay: 180 Atrial Refractory: ind Mode Switch: 160 Additional Device Information -VS percent: 1% -PRODUCT TRANSFER PUMPER percent: 0% AP-VS percent: 71% AP-PRODUCT TRANSFER PUMPER percent: 26% Atrial: Threshold: 0.5 V @ 0.4 msec Programmed amp/PW: 1.5 V @ 0.4 msec P wave: 3.5 mV Sensitivity: auto Impedance: 292 ohms Pacing percent: 90% Right Ventricle: Threshold: 0.5 V @ 0.4 msec Programmed amp/PW: 1.0 V @ 0.4 msec R wave: 11.8 mV Sensitivity: auto Impedance: 390 ohms RV pacin% Episodes: Atrial Fib count: 15 Atrial burden: 3% Mode Switch episodes: 0 Ventricular Fibrillation count: 0 Fast Ventricular Tachycardia count: 0 Slow Ventricular Tachycardia: 0 NSVT: 0 Summary: Normal device function. Normal pacing and sensing threshold. Battery: 9 yrs until RADHA. Histogram: ok. Atrial episodes: 15 AFIB events, 3% of the time. None since September 2023. Ventricular episodes: none. Changes: per auto threshold testing Follow up: 3 month device check and provider appointment. View External Cardiology - Correctional Nurse Strips [ID [id number]] documented in this encounter [facility] 01-07-2024 Note HNO ID: [id number] Author: YOGESH ACUNA MD Service: ? Author Type: Physician Type: Progress Notes Filed: 01/09/2024 09:33 Note Text: Dual Pacer in office Check Date: January 07, 2024 Time: 9:14 AM Devices: Implants Lead Ra Lead Biotronik-04/04/2023 - Implanted Heart Model/Cat number: REBECA [id number] Serial number: [id number] Reservations Agent: [employer] Lot number: LEFT AXILLARY VEIN Size: Right Atrial Pacing Lead Left Bundle Branch Area Ventricular Lead Biotronik-04/04/2023 - Implanted Heart Model/Cat number: REBECA Swift [id number] Serial number: [id number] Reservations Agent: [employer] Lot number: LEFT AXILLARY VEIN Size: Left Bundle Branch Area Ventricular Lead Pacemaker Dual Pacer [employer]-04/04/2023 - Implanted (Left) Chest Wall Model/Cat number: EDORA 8 DR-T PRO-MRI [id number] Serial number: DUPLICATE Reservations Agent: [employer] Lot number: INITIAL DUAL PACER; LBB AREA PACING Size: Sick sinus syndrome, AV node dysfunction, paroxysmal A-fib, LVEF 64% by echo, BMI 31, PVCs, Xarelto anticoagulation. Last Interrogation Date: 04-04-2023 Estimated Remaining Longevity: 9 years until RADHA Underlying Rhythm: Sinus Rhythm Interrogation Performed by: Janelle Chaudhary LPN Programming Parameters Mode: DDD-CLS Lower Rate: 60 Upper Track: 140 Upper Sensor: 130 Paced AV Delay: 220 Sensed AV Delay: 180 Atrial Refractory: ind Mode Switch: 160 Additional Device Information -VS percent: 1% -PRODUCT TRANSFER PUMPER percent: 0% AP-VS percent: 71% AP-PRODUCT TRANSFER PUMPER percent: 26% Atrial: Threshold: 0.5 V @ 0.4 msec Programmed amp/PW: 1.5 V @ 0.4 msec P wave: 3.5 mV Sensitivity: auto Impedance: 292 ohms Pacing percent: 90% Right Ventricle: Threshold: 0.5 V @ 0.4 msec Programmed amp/PW: 1.0 V @ 0.4 msec R wave: 11.8 mV Sensitivity: auto Impedance: 390 ohms RV pacin% Episodes: Atrial Fib count: 15 Atrial burden: 3% Mode Switch episodes: 0 Ventricular Fibrillation count: 0 Fast Ventricular Tachycardia count: 0 Slow Ventricular Tachycardia: 0 NSVT: 0 Summary: Normal device function. Normal pacing and sensing threshold. Battery: 9 yrs until RADHA. Histogram: ok. Atrial episodes: 15 AFIB events, 3% of the time. None since September 2023. Ventricular episodes: none. Changes: per auto threshold testing Follow up: 3 month device check and provider appointment. View External Cardiology - Correctional Nurse Strips [ID [id number]] [facility] 01-02-2024 History of Present illness Narrative Images from the original note were not included. Aric Linda DO Urology Office Visit Established patient [facility] [address] [facility] [address] Dept: [phone] Dept Loc: [phone] PATIENT NAME: Cade Islas DATE OF : 1945 REFERRING PROVIDER: No ref. provider found PCP: Nir Le MD DATE OF VISIT: 01/02/24 CHIEF COMPLAINT: Chief Complaint Patient presents with Prostate Cancer Conference Impression: Diagnoses and all orders for this visit: Stress incontinence, male Erectile dysfunction after radical prostatectomy Prostate cancer (HCC) . Plan: Reviewed treatment options for male stress incontinence with patient and his today Based on symptoms of 2-3 pads per day, would likely be a good candidate for a male urethral sling He will try stopping his stream during urination over the next couple of weeks and focus on how many pads he is using every day Will have him return for office cystoscopy to rule out any urethral pathology or bladder pathology For erectile dysfunction we discussed treatment options including higher doses of oral medications, vacuum erection device, intracavernosal injection and penile prosthesis Information was given regarding vacuum erection device. Use of this for 10 to 15 minutes 1-2 times a day can help improve penile length after prostatectomy by means of daily stretching At this time he would like to think about options before making a decision Will have him return for office evaluation, cystoscopy On this date I spent 45 minutes [id number] with patient and his reviewing treatment options for stress incontinence as well as erectile dysfunction after radical prostatectomy Follow Up: Follow up for office cystoscopy (ADELSO woodard) . Aric Linda, Reconstructive Urology [facility] [place]: Mr. Islas is a 78 y.o. male who presents to the office for stress incontinence, erectile dysfunction. Records have been reviewed HPI HPI Mr. Islas is a 78 y.o. male who presents to the office for stress urinary incontinence. He has a history of prostate cancer which was treated by RALP in March 2023. Reports leakage is daily, and describes his urinary stream as constant, comes on quickly Does have nighttime urinary leakage He cannot stop urinary stream once started. Maybe decrease? Leakage is worse with coughing, when he doesn't think about it he will leak He has tried PFPT for his incontinence. He does use incontinence pads/briefs. (2-3 ppd) large pads, rarely soaked. He uses incontinence briefs as well for nighttime leakage He does not have history of UTI Does not have history of gross hematuria Does not strain with urination He does not have history of bladder neck contracture or urethral sphincter There none any known history of bladder cancer. In June he did have bilateral pelvic fluid collections/lymphoceles Right side was drained Culture positive for Klebsiella Also has erectile dysfunction; was having erections prior to surgery Since surgery, has tried nothing Tried some left over cialis, 20 mg? Endorses desire Pertinent history: BMI: Body mass index is 30.41 kg/m . Diabetes? Yes - well controlled HbA1c: No components found for: LABA1C 5.1% Prior IPP? No Previous inguinal hernia repair? No History of prostatectomy? Yes - March 2023 History of artificial urinary sphincter (AUS) or male urethral sling? No History of pelvic radiation? No History of pelvic fracture? No History of urethral stricture disease? No History of urinary tract infection? No History of renal or pancrease transplant? No Currently on immunosuppression? No Blood thinners? Yes - Xarelto for Afib (no DVT) Current tobacco use? No Other: Right handed; had pelvic abscess/fluid collection in June which was drained, has a left sided lymphocele Would be a good candidate for either Sling or AUS Leaning towards sling based on number of pads per day at this time He reports erectile dysfunction since his surgery He has trouble achieving erections. He does not get nocturnal erections. He has tried medications previously for erections - including tadalafil with no success. Additional prior treatment includes none We discussed various options to managing erectile dysfunction including oral PDE5i vacuum erection devices (RAFAEL) intracavernosal injections (ICI) intraurethral suppositories (inflatable) penile prosthesis (IPP) ED treatment option handout given for patient to review. Advised to visit [email or web address] to view more information if desired. Tobacco History reports that he has never smoked. He has never used smokeless tobacco. Review of Systems Review of Systems Constitutional: Negative. HENT: Negative. Gastrointestinal: Negative. Genitourinary: Positive for enuresis, frequency and urgency. Past Medical History: Past Medical History: Diagnosis Date Benign prostatic hyperplasia 2022 Diabetes (HCC) Elevated PSA 2022 GERD (gastroesophageal reflux disease) History of chronic atrial fibrillation Hyperlipidemia Hypertension Hypothyroidism Pacemaker Prostate cancer (HCC) 2022 Thrombocytopenia (HCC) Past Surgical History: Past Surgical History: Procedure Laterality Date ATRIAL CARDIAC PACEMAKER INSERTION CHOLECYSTECTOMY PACEMAKER (HISTORICAL) PROSTATE SURGERY 2023 SPINAL CORD STIMULATOR IMPLANT Medications Current Outpatient Medications: amitriptyline (Elavil) 100 MG tablet, Take 100 mg by mouth Nightly., Disp: , Rfl: amLODIPine (Norvasc) 5 MG tablet, , Disp: , Rfl: atorvastatin (Lipitor) 10 MG tablet, , Disp: , Rfl: fluticasone (Flonase) 50 MCG/ACT nasal spray, , Disp: , Rfl: gabapentin (Neurontin) 600 MG tablet, Take 600 mg by mouth 3 times daily., Disp: , Rfl: levothyroxine (Synthroid, Levoxyl) 50 MCG tablet, , Disp: , Rfl: lisinopril 40 MG tablet, , Disp: , Rfl: metFORMIN XR (Glucophage-XR) 500 MG 24 hr tablet, Take 500 mg by mouth 2 times daily., Disp: , Rfl: potassium chloride ER (Micro-K) 10 MEQ ER capsule, , Disp: , Rfl: Semaglutide, 2 MG/DOSE, (Ozempic, 2 MG/DOSE,) 8 MG/3ML solution pen-injector, Inject under the skin., Disp: , Rfl: sotalol (Betapace) 240 MG tablet, every 12 hours., Disp: , Rfl: Vascepa 1 g capsule, , Disp: , Rfl: Xarelto 20 MG tablet, Take 20 mg by mouth 1 (one) time each day., Disp: , Rfl: Vitals: BP 137/77 Pulse 80 Ht 5' 8 (1.727 m) Wt 200 lb (90.7 kg) BMI 30.41 kg/m Physical Exam Physical Exam Constitutional: Appearance: Normal appearance. Pulmonary: Effort: Pulmonary effort is normal. Skin: General: Skin is warm and dry. Neurological: Mental Status: He is alert. Labs: Lab Results Component Value Date COLORU Yellow 04/26/2023 CLARITYU Turbid (A) 04/26/2023 KETONESU Negative 04/26/2023 PROTUR 100 (A) 04/26/2023 UROBILINOGEN Normal 04/26/2023 Hemoglobin Date Value Ref Range Status 07/05/2023 13.0 13.0 - 18.0 g/dL Final 07/04/2023 12.6 (L) 13.0 - 18.0 g/dL Final 07/03/2023 12.7 (L) 13.0 - 18.0 g/dL Final Hematocrit Date Value Ref Range Status 07/05/2023 38.9 (L) 40.0 - 52.0 % Final 07/04/2023 38.3 (L) 40.0 - 52.0 % Final 07/03/2023 39.3 (L) 40.0 - 52.0 % Final documented in this encounter [facility] 01-02-2024 Instructions Aric Linda DO - 01/02/2024 4:00 PM EDT Options for Vacuum Erection Devices for penile rehabilitation and Erectile Dysfunction [employer] (different options for vacuums and constriction bands) [email or web address] [place] E[employer]em Manual Vacuum Pump (rubber band size C is most common) [email or web address]/shop/vacuu e-ndohoza-[email or web address]/osbonesteem- Manual/ [employer] [email or web address] documented in this encounter [facility] 11-19-2023 Telephone encounter Note Lab ordered mailed to pt address on file [facility] 11-19-2023 Miscellaneous Notes Lab ordered mailed to pt address on file Lab order placed Addended by: DALI LU on: 11/19/2023 01:58 PM Modules accepted: Orders Patient's called to ask us to mail them a paper copy of his PSA lab order so they can have it drawn at [facility]. Pt aware to have PSA drawn 2 weeks prior to appt. Can someone please enter a PSA order for the patient and I will mail it to him? documented in this encounter [facility] 11-19-2023 Telephone encounter Note Lab order placed [facility] 11-19-2023 Note Addended by: Gisel LU on: 11/19/2023 01:58 PM Modules accepted: Orders [facility] 11-19-2023 Note Addended by: Gisel LU on: 11/19/2023 01:58 PM Modules accepted: Orders [facility] 11-19-2023 Note Addended by: Gisel LU on: 11/19/2023 01:58 PM Modules accepted: Orders [facility] 11-19-2023 Note Addended by: Gisel LU on: 11/19/2023 01:58 PM Modules accepted: Orders [facility] 11-15-2023 Telephone encounter Note Patient's called to ask us to mail them a paper copy of his PSA lab order so they can have it drawn at [facility]. Pt aware to have PSA drawn 2 weeks prior to appt. Can someone please enter a PSA order for the patient and I will mail it to him? [facility] 11-15-2023 Miscellaneous Notes Patient's called to ask us to mail them a paper copy of his PSA lab order so they can have it drawn at [facility]. Pt aware to have PSA drawn 2 weeks prior to appt. Can someone please enter a PSA order for the patient and I will mail it to him? documented in this encounter [facility] 11-14-2023 History of Present illness Narrative Images from the original note were not included. Avtar Babin MD 11/14/2023 at 2:09 PM Office follow up PATIENT NAME: Cade Islas DATE OF : 1945 TODAY'S DATE: 11/14/2023 CHIEF COMPLAINT: Chief Complaint Patient presents with Follow-up Prostate Cancer Subjective: Mr. Islas is a 78 y.o. male who presents to the office for follow up of prostate cancer He did undergo robotic assisted laparoscopic radical prostatectomy and bilateral pelvic lymph node dissection 04/23/23 Has had post op stress incontinence. He has been evaluated by pelvic floor PT. Stopped going to PFPT about a month ago. Is still have incontinence. Currently using about 2 PPD. Concerned about ED has well. Unable to achieve an erection. He is interested in learning more and ICI and penile prosthesis/AUS Review of Systems Constitutional: Negative for activity change and appetite change. HENT: Negative for congestion. Eyes: Negative for pain and itching. Respiratory: Negative for shortness of breath. Gastrointestinal: Negative for abdominal pain. Genitourinary: Negative for hematuria. +incontinence Neurological: Negative for facial asymmetry. Psychiatric/Behavioral: Negative for agitation and behavioral problems. Past Medical History: Past Medical History: Diagnosis Date Benign prostatic hyperplasia 2022 Diabetes (HCC) Elevated PSA 2022 GERD (gastroesophageal reflux disease) History of chronic atrial fibrillation Hyperlipidemia Hypertension Hypothyroidism Pacemaker Prostate cancer (HCC) 2022 Thrombocytopenia (HCC) Past Surgical History: Past Surgical History: Procedure Laterality Date ATRIAL CARDIAC PACEMAKER INSERTION CHOLECYSTECTOMY PACEMAKER (HISTORICAL) PROSTATE SURGERY 2023 SPINAL CORD STIMULATOR IMPLANT Allergies: Patient has no known allergies. Social History: Social History Socioeconomic History Marital status: Spouse name: Not on file Number of children: Not on file Years of education: Not on file Highest education level: Not on file Occupational History Not on file Tobacco Use Smoking status: Never Smokeless tobacco: Never Vaping Use Vaping status: Never Used Substance and Sexual Activity Alcohol use: Not Currently Comment: occ Drug use: Never Sexual activity: Yes Partners: Female Other Topics Concern Not on file Social History Narrative Not on file Social Determinants of Health Financial Resource Strain: Low Risk (06/30/2023) Overall Financial Resource Strain (CARDIA) Difficulty of Paying Living Expenses: Not hard at all Food Insecurity: No Food Insecurity (06/30/2023) Hunger Vital Sign Worried About Running Out of Food in the Last Year: Never true Ran Out of Food in the Last Year: Never true Transportation Needs: No Transportation Needs (06/30/2023) PRAPARE - Transportation Lack of Transportation (Medical): No Lack of Transportation (Non-Medical): No Physical Activity: Insufficiently Active (06/30/2023) Exercise Vital Sign Days of Exercise per Week: 5 days Minutes of Exercise per Session: 20 min Stress: No Stress Concern Present (06/30/2023) [employer] - Occupational Stress Questionnaire Feeling of Stress : Not at all Social Connections: Unknown (06/30/2023) Social Connection and Isolation Panel [NHANES] Frequency of Communication with Friends and Family: More than three times a week Frequency of Social Gatherings with Friends and Family: More than three times a week Attends [facility] Services: Not on file Active Member of Clubs or Organizations: Yes Attends Club or Organization Meetings: 1 to 4 times per year Marital Status: Intimate Partner Violence: Not At Risk (06/30/2023) Humiliation, Afraid, Rape, and Kick questionnaire Fear of Current or Ex-Partner: No Emotionally Abused: No Physically Abused: No Sexually Abused: No Housing Stability: Low Risk (06/30/2023) Housing Stability Vital Sign Unable to Pay for Housing in the Last Year: No Number of Places Lived in the Last Year: 1 Unstable Housing in the Last Year: No Family History: Medications Prior to Admission medications Medication Sig Start Date End Date Taking? Authorizing Provider amitriptyline (Elavil) 100 MG tablet Take 100 mg by mouth Nightly. 03/02/23 Historical Provider, amLODIPine (Norvasc) 5 MG tablet 10/09/22 Historical Provider, atorvastatin (Lipitor) 10 MG tablet 03/09/23 Historical Provider, fluticasone (Flonase) 50 MCG/ACT nasal spray 08/03/22 Historical Provider, gabapentin (Neurontin) 600 MG tablet Take 600 mg by mouth 3 times daily. 02/19/23 Historical Provider, levothyroxine (Synthroid, Levoxyl) 50 MCG tablet 12/11/22 Historical Provider, lisinopril 40 MG tablet 03/27/23 Historical Provider, metFORMIN XR (Glucophage-XR) 500 MG 24 hr tablet Take 500 mg by mouth 2 times daily. 03/20/23 Historical Provider, omeprazole (PriLOSEC) [address] capsule 03/01/23 Historical Provider, potassium chloride ER (Micro-K) 10 MEQ ER capsule 01/14/23 Historical Provider, Semaglutide, 2 MG/DOSE, (Ozempic, 2 MG/DOSE,) 8 MG/3ML solution pen-injector Inject under the skin. 05/24/22 Historical Provider, sotalol (Betapace) 240 MG tablet every 12 hours. 04/06/23 Historical Provider, tamsulosin (Flomax) 0.4 MG 24 hr capsule 02/16/23 Historical Provider, Vascepa 1 g capsule 12/11/22 Historical Provider, Xarelto 20 MG tablet Take 20 mg by mouth 1 (one) time each day. 11/11/22 Historical Provider, Vitals: BP (!) 147/90 (BP Location: Right arm, Patient Position: Sitting, BP Cuff Size: Large adult) Pulse 79 Ht 5' 8 (1.727 m) Wt 200 lb (90.7 kg) BMI 30.41 kg/m Physical Exam General: alert, appears stated age, and cooperative Abdomen: soft, non-tender, without masses or organomegaly Back: back muscles are normal : +urinary incontinence, +ED Labs: WBC Lab Results Component Value Date WBC 5.3 07/05/2023 BMP Lab Results Component Value Date NA 139 07/05/2023 K 3.8 07/05/2023 CL 108 (H) 07/05/2023 CO2 22 07/05/2023 BUN 12 07/05/2023 CREATININE 0.89 07/05/2023 GLUCOSE 118 (H) 07/05/2023 CALCIUM 9.1 07/05/2023 PSA No results found for: PSA UA Lab Results Component Value Date COLORU Yellow 04/26/2023 GLUCOSEU Normal 04/26/2023 UROBILINOGEN Normal 04/26/2023 Review: PSA 11/07/23 0.03 11/07/23 0.06 07/19/23 <0.1 Patient meets criteria of Level 4 visit due to 2 or more stable chronic illnesses I have completed 3 of the following: I have reviewed the external source notes from [facility] I have reviewed the results of Labs I have ordered testing Impression/Plan Diagnoses and all orders for this visit: Prostate cancer (HCC) PSA remains less than 0.06 since RP Repeat PSA in 3 months Variable PSA, 0.03- 0.06 Stress incontinence Has failed PFPT Will refer to Dr. Linda to discuss AUS Erectile dysfunction after radical prostatectomy Will refer to Hugo Mac to discuss ICI Will refer to Dr. Linda to discuss penile prosthesis Follow up in about 3 months (around 02/14/2024) for psa. Avtar Babin MD 11/14/23 2:09 PM documented in this encounter [facility] 10-03-2023 History of Present illness Narrative Dual Pacer Remote Check Date: October 03, 2023 Time: 2:38 PM Devices: Implants Lead Ra Lead [employer]-04/04/2023 - Implanted Heart Model/Cat number: REBECA Swift [id number] Serial number: [id number] Reservations Agent: [employer] Lot number: LEFT AXILLARY VEIN Size: Right Atrial Pacing Lead Rv (Lbb Area) Lead [employer]-04/04/2023 - Implanted Heart Model/Cat number: REBECA Swift [id number] Serial number: [id number] Reservations Agent: [employer] Lot number: LEFT AXILLARY VEIN Size: Left Bundle Branch Area Pacing Lead Pacemaker Dual Pacer [employer]-04/04/2023 - Implanted (Left) Chest Wall Model/Cat number: EDORA 8 DR-T PRO-MRI [id number] Serial number: DUPLICATE Reservations Agent: [employer] Lot number: INITIAL DUAL PACER; LBB AREA PACING Size: Sick sinus syndrome, AV node dysfunction, paroxysmal A-fib, LVEF 64% by echo, BMI 31, PVCs, Xarelto anticoagulation. Last Interrogation Date: 04-04-2023 Estimated Remaining Longevity: 95% of the battery left until RADHA Interrogation Performed by: Janelle Chaudhary LPN Programming Parameters Mode: DDD-CLS Lower Rate: 60 Upper Track: 140 Upper Sensor: 130 Paced AV Delay: 220 Sensed AV Delay: 180 Atrial Refractory: ind Mode Switch: 160 Additional Device Information -VS percent: 1% -PRODUCT TRANSFER PUMPER percent: 0% AP-VS percent: 79% AP-PRODUCT TRANSFER PUMPER percent: 18% Atrial: Threshold: 0.5 V @ 0.4 msec Programmed amp/PW: 1.5 V @ 0.4 msec P wave: 3.8 mV Sensitivity: auto Impedance: 312 ohms Pacing percent: 95% Right Ventricle: Threshold: 0.5 V @ 0.4 msec Programmed amp/PW: 1.0 V @ 0.4 msec R wave: 10.0 mV Sensitivity: auto Impedance: 410 ohms RV pacin% Episodes: Atrial Fib count: 9/day Atrial burden: 3% Mode Switch episodes: 0 Ventricular Fibrillation count: 0 Fast Ventricular Tachycardia count: 0 Slow Ventricular Tachycardia: 0 NSVT: 0 Summary: Normal device function. Normal pacing and sensing threshold. Battery: 95% of the battery left until RADHA. Histogram: ok. Atrial episodes: 9 mode switches per day. Ventricular episodes: none. Follow up: 3 month device check and provider appointment. View External Cardiology - Correctional Nurse Strips [ID [id number]] documented in this encounter [facility] 08-14-2023 History of Present illness Narrative Images from the original note were not included. Avtar Babin MD 08/14/2023 at 12:13 PM Office follow up PATIENT NAME: Cade Islas DATE OF : 1945 TODAY'S DATE: 08/14/2023 CHIEF COMPLAINT: Chief Complaint Patient presents with Prostate Cancer Review Labs and Ct Scan Subjective: Mr. Islas is a 78 y.o. male who presents to the office for follow up of prostate cancer He is overall doing well Denies pain Still having incontinence, seeing pelvic floor physical therapy Review of Systems Gastrointestinal: Negative for abdominal distention and abdominal pain. Genitourinary: Positive for decreased urine volume and frequency. Negative for difficulty urinating. Past Medical History: Past Medical History: Diagnosis Date Diabetes (HCC) GERD (gastroesophageal reflux disease) History of chronic atrial fibrillation Hyperlipidemia Hypertension Hypothyroidism Pacemaker Thrombocytopenia (HCC) Past Surgical History: Past Surgical History: Procedure Laterality Date ATRIAL CARDIAC PACEMAKER INSERTION CHOLECYSTECTOMY PACEMAKER (HISTORICAL) SPINAL CORD STIMULATOR IMPLANT Allergies: Patient has no known allergies. Social History: Social History Socioeconomic History Marital status: Spouse name: Not on file Number of children: Not on file Years of education: Not on file Highest education level: Not on file Occupational History Not on file Tobacco Use Smoking status: Never Smokeless tobacco: Never Vaping Use Vaping Use: Never used Substance and Sexual Activity Alcohol use: Not Currently Comment: occ Drug use: Never Sexual activity: Not on file Other Topics Concern Not on file Social History Narrative Not on file Social Determinants of Health Financial Resource Strain: Low Risk (06/30/2023) Overall Financial Resource Strain (CARDIA) Difficulty of Paying Living Expenses: Not hard at all Food Insecurity: No Food Insecurity (06/30/2023) Hunger Vital Sign Worried About Running Out of Food in the Last Year: Never true Ran Out of Food in the Last Year: Never true Transportation Needs: No Transportation Needs (06/30/2023) PRAPARE - Transportation Lack of Transportation (Medical): No Lack of Transportation (Non-Medical): No Physical Activity: Insufficiently Active (06/30/2023) Exercise Vital Sign Days of Exercise per Week: 5 days Minutes of Exercise per Session: 20 min Stress: No Stress Concern Present (06/30/2023) [employer] - Occupational Stress Questionnaire Feeling of Stress : Not at all Social Connections: Unknown (06/30/2023) Social Connection and Isolation Panel [NHANES] Frequency of Communication with Friends and Family: More than three times a week Frequency of Social Gatherings with Friends and Family: More than three times a week Attends [facility] Services: Not on file Active Member of Clubs or Organizations: Yes Attends Club or Organization Meetings: 1 to 4 times per year Marital Status: Intimate Partner Violence: Not At Risk (06/30/2023) Humiliation, Afraid, Rape, and Kick questionnaire Fear of Current or Ex-Partner: No Emotionally Abused: No Physically Abused: No Sexually Abused: No Housing Stability: Low Risk (06/30/2023) Housing Stability Vital Sign Unable to Pay for Housing in the Last Year: No Number of Places Lived in the Last Year: 1 Unstable Housing in the Last Year: No Family History: Medications Prior to Admission medications Medication Sig Start Date End Date Taking? Authorizing Provider amitriptyline (Elavil) 100 MG tablet Take 100 mg by mouth Nightly. 03/02/23 Yes Historical Provider, amLODIPine (Norvasc) 5 MG tablet 10/09/22 Yes Historical Provider, atorvastatin (Lipitor) 10 MG tablet 03/09/23 Yes Historical Provider, fluticasone (Flonase) 50 MCG/ACT nasal spray 08/03/22 Yes Historical Provider, gabapentin (Neurontin) 600 MG tablet Take 600 mg by mouth 3 times daily. 02/19/23 Yes Historical Provider, levothyroxine (Synthroid, Levoxyl) 50 MCG tablet 12/11/22 Yes Historical Provider, lisinopril 40 MG tablet 03/27/23 Yes Historical Provider, metFORMIN XR (Glucophage-XR) 500 MG 24 hr tablet Take 500 mg by mouth 2 times daily. 03/20/23 Yes Historical Provider, omeprazole (PriLOSEC) [address] capsule 03/01/23 Yes Historical Provider, potassium chloride ER (Micro-K) 10 MEQ ER capsule 01/14/23 Yes Historical Provider, Semaglutide, 2 MG/DOSE, (Ozempic, 2 MG/DOSE,) 8 MG/3ML solution pen-injector Inject under the skin. 05/24/22 Yes Historical Provider, sotalol (Betapace) 240 MG tablet every 12 hours. 04/06/23 Yes Historical Provider, tamsulosin (Flomax) 0.4 MG 24 hr capsule 02/16/23 Yes Historical Provider, Vascepa 1 g capsule 12/11/22 Yes Historical Provider, Xarelto 20 MG tablet Take 20 mg by mouth 1 (one) time each day. 11/11/22 Yes Historical Provider, Vitals: BP 130/69 Pulse 67 Ht 5' 8 (1.727 m) Wt 200 lb (90.7 kg) BMI 30.41 kg/m Physical Exam General: alert, appears stated age, and cooperative Abdomen: soft and nondistended Back: straight, CVA tenderness absent : defer exam Labs: WBC Lab Results Component Value Date WBC 5.3 07/05/2023 BMP Lab Results Component Value Date NA 139 07/05/2023 K 3.8 07/05/2023 CL 108 (H) 07/05/2023 CO2 22 07/05/2023 BUN 12 07/05/2023 CREATININE 0.89 07/05/2023 GLUCOSE 118 (H) 07/05/2023 CALCIUM 9.1 07/05/2023 PSA No results found for: PSA UA Lab Results Component Value Date COLORU Yellow 04/26/2023 GLUCOSEU Normal 04/26/2023 UROBILINOGEN Normal 04/26/2023 Review: CT ABDOMEN AND PELVIS WITH CONTRAST EXAM DATE AND TIME: 07/19/2023 2:18 PM EDT INDICATION: 78 years with pelvic abscess COMPARISON: 07/04/2023, 07/02/2023, 04/26/2023 TECHNIQUE: Transaxial sequence through the abdomen and pelvis with 3 mm reconstruction with dynamic intravenous infusion of 75 mL of 370 mg% contrast media. Coronal and sagittal reconstructions included. Dose reduction was employed with automated exposure control. FINDINGS: Chest base: Normal. Liver: Normal size but with mildly nodular contours. No focal lesion. Biliary tree: Normal caliber. The gallbladder is surgically absent. Spleen: The spleen is enlarged. Small round hypodense lesion measuring 1.3 x 0.7 cm. Adrenals: Normal. Pancreas: Normal. Kidneys: Symmetric contrast enhancement without hydronephrosis. Bilateral renal cysts not requiring imaging follow-up. No suspicious lesion. Punctate left renal calculus. Free fluid: None. Retroperitoneum and mesentery: No enlarged lymph nodes. Bowel: Normal caliber. The appendix is nondistended. Scattered diverticula are noted throughout the colon. No stenotic lesion, mucosal thickening or adjacent fat stranding is noted to suggest diverticulitis. Vasculature: Atherosclerotic calcifications are seen in the aorta and its branches. The aorta is normal in caliber. Abdominal wall: Normal. Pelvic organs/viscera: Status post prostatectomy. There is pericystic fat stranding. There is redemonstration of fat stranding in the right hemipelvis but with resolution of the previously seen fluid collection and interval removal of the previously seen percutaneous drainage catheter. There is redemonstration of a fluid collection in the left groin along the external iliac vasculature and obturator internus which measures approximately 4.9 x 3.2 cm, similar to the prior study. Pelvic lymphadenopathy: None. Osseous structures: Degenerative changes in the spine. There is 2 mm of anterolisthesis at L4-L5. A cord stimulator device is present. IMPRESSION: 1. Resolution of the previously seen right pelvic fluid collection. Fat stranding in the right pelvis and adjacent to the urinary bladder could be postoperative but correlate with urinalysis for possible cystitis. 2. Additional left pelvic fluid collection is unchanged and may represent a seroma or lymphocele. However, superimposed infection cannot be excluded by imaging. 3. Splenomegaly. Nonspecific splenic lesion measuring 1.3 cm. Recommend contrast-enhanced MRI. 4. Nodular contour of the liver. Consider underlying liver disease including cirrhosis. Other chronic and incidental findings as detailed above. CT imaging reviewed, resolution of right sided fluid collection Impression/Plan Diagnoses and all orders for this visit: Prostate cancer (HCC) - PSA, total and free; Future Stress incontinence PSA in 3 mo He has started pelvic floor physical therapy If incontinence persists, will place referral for AUS CT reviewed, no residual right sided pelvic fluid collection. Small asymptomatic left lymphocele needs no further attention Follow up in about 3 months (around 11/14/2023) for psa. Avtar Babin MD 08/14/23 12:13 PM documented in this encounter [facility] 07-20-2023 Evaluation + Plan note Associated Problem(s): Abscess of male pelvis (CMS/HCC) (HCC) Following patient for bl pelvic fluid collections. IR drain placed into R pelvic fluid collection on 07/01. Cx with Klebsiella pneumoniae. L fluid collection not drained dt lack of safe access. 07/[address] scan shows resolution of R pelvic collection; L pelvic collection remains unchanged. Patient without fever, leukocytosis, or symptoms suggestive of ongoing infection. He has been on a course of Amox-Clav; plan to complete course after today's dose. Follow up with Urology as recommended. Advised patient to watch for signs/symptoms concerning for infection including fever/chills/malaise, urinary symptoms, new abdominal pain, etc. [facility] 07-20-2023 Miscellaneous Notes Associated Problem(s): Abscess of male pelvis (CMS/HCC) (HCC) Following patient for bl pelvic fluid collections. IR drain placed into R pelvic fluid collection on 07/01. Cx with Klebsiella pneumoniae. L fluid collection not drained dt lack of safe access. 07/[address] scan shows resolution of R pelvic collection; L pelvic collection remains unchanged. Patient without fever, leukocytosis, or symptoms suggestive of ongoing infection. He has been on a course of Amox-Clav; plan to complete course after today's dose. Follow up with Urology as recommended. Advised patient to watch for signs/symptoms concerning for infection including fever/chills/malaise, urinary symptoms, new abdominal pain, etc. documented in this encounter [facility] 07-20-2023 History of Present illness Narrative Images from the original note were not included. [facility] Infectious Diseases Advanced Practice Provider Outpatient Progress Note Patient was identified and seen today via Telehealth by agreement and consent. I used the following Telehealth technology: Audio capability only. Total length of call 11 minutes. The patient was offered and advised video for a more comprehensive evaluation, but the patient declined or was unable to use video. Patient location: Patient Location: Home. This patient encounter is appropriate and reasonable under the circumstances: transportation issues . The patient has been advised of the potential risks and limitations of this mode of treatment (including but not limited to the absence of in-person examination) and has agreed to be treated in a remote fashion in spite of them. Any and all of the patient's/patient's family's questions on this issue have been answered and I have made no promises or guarantees to the patient. The patient has also been advised to contact this office for worsening conditions or problems, and seek emergency medical treatment and/or call 911 if the patient deems either necessary. The patient stated that they are currently in the state [facility]. If the patient is a minor, permission has been obtained by the parent or guardian for the patient to receive medical care at this visit. HISTORYOF PRESENT ILLNESS 78 yo male with PMHx significant for CKD, DM, GERD, HLD, HTN, hypothyroidism, Afib, presence of pacemaker, gangrenous gallbladder s/p cholecystectomy (01/2023), prostate CA s/p prostatectomy by [facility] (04/23/23) was admitted at [facility] (06/29-07/04) after presenting from [facility] ED for abnormal lab work/ imaging. He initially presented to [facility] ED on 06/28 on the advice of PCP who had ordered lab work after patient had fever, chills, malaise; labs revealed elevated LFTs. While at [facility], he had He had a CT scan there that revealed a [id number] R pelvic sidewall and [id number] L pelvis sidewall fluid collection. Patient subsequently transferred to [facility] for care. On 07/01, patient had IR drain of R fluid collection. Cx with K pneumo. He has been on a course of Amox-Clav. A repeat CT scan 07/18 shows resolution of the previously seen right pelvic fluid collection; additional left pelvic fluid collection is unchanged. Patient reports feeling well overall. He reports he has a lower abdominal muscle strain after lifting heavy following his hospital admission. Reports ongoing issues of incontinence. Denies fever, chills, CP, SOB, N/V, suprapubic/flank discomfort, hematuria, dysuria, and any bowel changes. No other new exacerbating or alleviating factors. Review of Systems Constitutional: Negative for chills, fatigue and fever. HENT: Negative for congestion, ear pain, postnasal drip, rhinorrhea, sinus pressure, sinus pain and sore throat. Eyes: Negative for pain, discharge and itching. Respiratory: Negative for cough, chest tightness and shortness of breath. Cardiovascular: Negative for chest pain, palpitations and leg swelling. Gastrointestinal: Negative for abdominal distention, abdominal pain, constipation, diarrhea, nausea and vomiting. Genitourinary: Negative for dysuria, flank pain, frequency and urgency. Incontinence Musculoskeletal: Negative for arthralgias and myalgias. Skin: Negative for color change, rash and wound. Neurological: Negative for dizziness, weakness, light-headedness and headaches. Social History Socioeconomic History Marital status: Spouse name: Not on file Number of children: Not on file Years of education: Not on file Highest education level: Not on file Occupational History Not on file Tobacco Use Smoking status: Never Smokeless tobacco: Never Vaping Use Vaping Use: Never used Substance and Sexual Activity Alcohol use: Not Currently Comment: occ Drug use: Never Sexual activity: Not on file Other Topics Concern Not on file Social History Narrative Not on file Social Determinants of Health Financial Resource Strain: Low Risk (06/30/2023) Overall Financial Resource Strain (CARDIA) Difficulty of Paying Living Expenses: Not hard at all Food Insecurity: No Food Insecurity (06/30/2023) Hunger Vital Sign Worried About Running Out of Food in the Last Year: Never true Ran Out of Food in the Last Year: Never true Transportation Needs: No Transportation Needs (06/30/2023) PRAPARE - Transportation Lack of Transportation (Medical): No Lack of Transportation (Non-Medical): No Physical Activity: Insufficiently Active (06/30/2023) Exercise Vital Sign Days of Exercise per Week: 5 days Minutes of Exercise per Session: 20 min Stress: No Stress Concern Present (06/30/2023) [employer] - Occupational Stress Questionnaire Feeling of Stress : Not at all Social Connections: Unknown (06/30/2023) Social Connection and Isolation Panel [NHANES] Frequency of Communication with Friends and Family: More than three times a week Frequency of Social Gatherings with Friends and Family: More than three times a week Attends [employer] Services: Not on file Active Member of Clubs or Organizations: Yes Attends Club or Organization Meetings: 1 to 4 times per year Marital Status: Intimate Partner Violence: Not At Risk (06/30/2023) Humiliation, Afraid, Rape, and Kick questionnaire Fear of Current or Ex-Partner: No Emotionally Abused: No Physically Abused: No Sexually Abused: No Housing Stability: Low Risk (06/30/2023) Housing Stability Vital Sign Unable to Pay for Housing in the Last Year: No Number of Places Lived in the Last Year: 1 Unstable Housing in the Last Year: No Past Medical History: Diagnosis Date Diabetes (HCC) GERD (gastroesophageal reflux disease) History of chronic atrial fibrillation Hyperlipidemia Hypertension Hypothyroidism Pacemaker Thrombocytopenia (HCC) No family history on file. There were no vitals filed for this visit. Wt Readings from Last 3 Encounters: 07/10/23 198 lb (89.8 kg) 07/04/23 198 lb 8 oz (90 kg) 05/10/23 204 lb (92.5 kg) Physical Exam *VV Conversant Speaking in full sentences, breathing unlabored No results displayed because visit has over 200 results. Other Labs: Micro: No results for input(s): COVID19 in the last 72 hours. 06/29 Blood Cx: NG 07/01 Abd abscess: K pneumo Lines: PIV Radiography/Echo/Other: 07/03 CT abd/pelvis Pelvic vasculature: Atherosclerotic vascular calcifications are seen in the distal aorta and its proximal major branches. No critical stenosis or aneurysm. Bowel: No evidence of bowel obstruction in the imaged portions. There is scattered colonic diverticulosis. The appendix is unremarkable in appearance. Peritoneum: Interval decrease in the size of the right pelvic fluid collection containing an indwelling pigtail catheter. Hypodense collection in the left hemipelvis measures approximately 5.3 x 3.4 cm on series 3, image 48. No free air in the imaged portion. Lymph nodes: No emerging adenopathy. Osseous structures: No acute fracture or traumatic dislocation. No aggressive osseous lesions. Spinal stimulator electronic device is noted in the left supragluteal soft tissues. Other findings: None. IMPRESSION: 1. Interval decrease in the size of the right pelvic fluid collection containing an indwelling pigtail catheter. A minimal amount of fluid surrounds this catheter. 2. Unchanged hypodense collection in the left hemipelvis. 3. Additional chronic findings as above. 07/18 CT abd/pelvis FINDINGS: Chest base: Normal. Liver: Normal size but with mildly nodular contours. No focal lesion. Biliary tree: Normal caliber. The gallbladder is surgically absent. Spleen: The spleen is enlarged. Small round hypodense lesion measuring 1.3 x 0.7 cm. Adrenals: Normal. Pancreas: Normal. Kidneys: Symmetric contrast enhancement without hydronephrosis. Bilateral renal cysts not requiring imaging follow-up. No suspicious lesion. Punctate left renal calculus. Free fluid: None. Retroperitoneum and mesentery: No enlarged lymph nodes. Bowel: Normal caliber. The appendix is nondistended. Scattered diverticula are noted throughout the colon. No stenotic lesion, mucosal thickening or adjacent fat stranding is noted to suggest diverticulitis. Vasculature: Atherosclerotic calcifications are seen in the aorta and its branches. The aorta is normal in caliber. Abdominal wall: Normal. Pelvic organs/viscera: Status post prostatectomy. There is pericystic fat stranding. There is redemonstration of fat stranding in the right hemipelvis but with resolution of the previously seen fluid collection and interval removal of the previously seen percutaneous drainage catheter. There is redemonstration of a fluid collection in the left groin along the external iliac vasculature and obturator internus which measures approximately 4.9 x 3.2 cm, similar to the prior study. Pelvic lymphadenopathy: None. Osseous structures: Degenerative changes in the spine. There is 2 mm of anterolisthesis at L4-L5. A cord stimulator device is present. IMPRESSION: 1. Resolution of the previously seen right pelvic fluid collection. Fat stranding in the right pelvis and adjacent to the urinary bladder could be postoperative but correlate with urinalysis for possible cystitis. 2. Additional left pelvic fluid collection is unchanged and may represent a seroma or lymphocele. However, superimposed infection cannot be excluded by imaging. 3. Splenomegaly. Nonspecific splenic lesion measuring 1.3 cm. Recommend contrast-enhanced MRI. 4. Nodular contour of the liver. Consider underlying liver disease including cirrhosis. Other chronic and incidental findings as detailed above. Antimicrobials,Start/End Dates: Amox-Clav (-07/19) ASSESSMENT/PLAN 1. Abscess of male pelvis (CMS/HCC) (HCC) Assessment & Plan: Following patient for bl pelvic fluid collections. IR drain placed into R pelvic fluid collection on 07/01. Cx with Klebsiella pneumoniae. L fluid collection not drained dt lack of safe access. 07/[address] scan shows resolution of R pelvic collection; L pelvic collection remains unchanged. Patient without fever, leukocytosis, or symptoms suggestive of ongoing infection. He has been on a course of Amox-Clav; plan to complete course after today's dose. Follow up with Urology as recommended. Advised patient to watch for signs/symptoms concerning for infection including fever/chills/malaise, urinary symptoms, new abdominal pain, etc. ADDITIONAL PLAN NOTES Opportunity given for questions and all questions answered to the patient's satisfaction. Total time 20 minutes on this day of visit includes record and documentation review before and after visit including documentation and time not explicitly included on EMR time stamp for accounting for open encounter. Carline CHAND PA-C documented in this encounter [facility] 07-10-2023 History of Present illness Narrative Images from the original note were not included. Avtar Babin MD 07/10/2023 at 8:06 AM Office follow up PATIENT NAME: Cade Islas DATE OF : 1945 TODAY'S DATE: 07/10/2023 CHIEF COMPLAINT: Chief Complaint Patient presents with Hospital Follow-up IR Drain for pelvic fluid collection./ Has Ct Scan scheduled for 07/19/23 Subjective: Mr. Islas is a 78 y.o. male who presents to the office for follow up of prostate cancer He does come in with pelvic drain, placed for fevers of unknown origin He had bilateral small asymptomatic pelvic lymphoceles. Only the right side was able to be drained Review of Systems Constitutional: Negative for activity change, chills, fatigue and fever. Gastrointestinal: Negative for abdominal distention and abdominal pain. Genitourinary: Negative for decreased urine volume, difficulty urinating, hematuria and urgency. Past Medical History: Past Medical History: Diagnosis Date Diabetes (HCC) GERD (gastroesophageal reflux disease) History of chronic atrial fibrillation Hyperlipidemia Hypertension Hypothyroidism Pacemaker Thrombocytopenia (HCC) Past Surgical History: Past Surgical History: Procedure Laterality Date ATRIAL CARDIAC PACEMAKER INSERTION CHOLECYSTECTOMY PACEMAKER (HISTORICAL) SPINAL CORD STIMULATOR IMPLANT Allergies: Patient has no known allergies. Social History: Social History Socioeconomic History Marital status: Spouse name: Not on file Number of children: Not on file Years of education: Not on file Highest education level: Not on file Occupational History Not on file Tobacco Use Smoking status: Never Smokeless tobacco: Never Vaping Use Vaping Use: Never used Substance and Sexual Activity Alcohol use: Not Currently Comment: occ Drug use: Never Sexual activity: Not on file Other Topics Concern Not on file Social History Narrative Not on file Social Determinants of Health Financial Resource Strain: Low Risk (06/30/2023) Overall Financial Resource Strain (CARDIA) Difficulty of Paying Living Expenses: Not hard at all Food Insecurity: No Food Insecurity (06/30/2023) Hunger Vital Sign Worried About Running Out of Food in the Last Year: Never true Ran Out of Food in the Last Year: Never true Transportation Needs: No Transportation Needs (06/30/2023) PRAPARE - Transportation Lack of Transportation (Medical): No Lack of Transportation (Non-Medical): No Physical Activity: Insufficiently Active (06/30/2023) Exercise Vital Sign Days of Exercise per Week: 5 days Minutes of Exercise per Session: 20 min Stress: No Stress Concern Present (06/30/2023) [employer] - Occupational Stress Questionnaire Feeling of Stress : Not at all Social Connections: Unknown (06/30/2023) Social Connection and Isolation Panel [NHANES] Frequency of Communication with Friends and Family: More than three times a week Frequency of Social Gatherings with Friends and Family: More than three times a week Attends [employer] Services: Not on file Active Member of Clubs or Organizations: Yes Attends Club or Organization Meetings: 1 to 4 times per year Marital Status: Intimate Partner Violence: Not At Risk (06/30/2023) Humiliation, Afraid, Rape, and Kick questionnaire Fear of Current or Ex-Partner: No Emotionally Abused: No Physically Abused: No Sexually Abused: No Housing Stability: Low Risk (06/30/2023) Housing Stability Vital Sign Unable to Pay for Housing in the Last Year: No Number of Places Lived in the Last Year: 1 Unstable Housing in the Last Year: No Family History: Medications Prior to Admission medications Medication Sig Start Date End Date Taking? Authorizing Provider amitriptyline (Elavil) 100 MG tablet Take 100 mg by mouth Nightly. 03/02/23 Yes Historical Provider, amLODIPine (Norvasc) 5 MG tablet 10/09/22 Yes Historical Provider, amoxicillin-clavulanate (Augmentin) 875-125 MG tablet Take 1 tablet by mouth in the morning and 1 tablet before bedtime. Do all this for 15 days. First dose before bed on 07/04, last doses on 07/18.. 07/05/23 07/20/23 Yes Isrrael Arce MD atorvastatin (Lipitor) 10 MG tablet 03/09/23 Yes Historical Provider, fluticasone (Flonase) 50 MCG/ACT nasal spray 08/03/22 Yes Historical Provider, gabapentin (Neurontin) 600 MG tablet Take 600 mg by mouth 3 times daily. 02/19/23 Yes Historical Provider, levothyroxine (Synthroid, Levoxyl) 50 MCG tablet 12/11/22 Yes Historical Provider, lisinopril 40 MG tablet 03/27/23 Yes Historical Provider, metFORMIN XR (Glucophage-XR) 500 MG 24 hr tablet Take 500 mg by mouth 2 times daily. 03/20/23 Yes Historical Provider, omeprazole (PriLOSEC) [address] capsule 03/01/23 Yes Historical Provider, potassium chloride ER (Micro-K) 10 MEQ ER capsule 01/14/23 Yes Historical Provider, Semaglutide, 2 MG/DOSE, (Ozempic, 2 MG/DOSE,) 8 MG/3ML solution pen-injector Inject under the skin. 05/24/22 Yes Historical Provider, senna-docusate sodium (Senokot-S) 8.6-50 MG tablet Take 2 tablets by mouth Nightly for 5 days. Skip if having diarrhea. 07/05/23 07/10/23 Yes Isrrael Arce MD sotalol (Betapace) 240 MG tablet every 12 hours. 04/06/23 Yes Historical Provider, tamsulosin (Flomax) 0.4 MG 24 hr capsule 02/16/23 Yes Historical Provider, Vascepa 1 g capsule 12/11/22 Yes Historical Provider, Xarelto 20 MG tablet Take 20 mg by mouth 1 (one) time each day. 11/11/22 Yes Historical Provider, HYDROcodone-acetaminophen ([place]) 5-325 MG tablet Take 1 tablet by mouth every 6 hours as needed for moderate pain (4-6) or severe pain (7-10) for up to 3 days. 07/05/23 07/08/23 Isrrael Arce MD HYDROcodone-acetaminophen ([place]) 7.5-325 MG tablet 03/02/23 07/05/23 Historical Provider, Vitals: BP 111/63 Pulse 70 Ht 5' 8 (1.727 m) Wt 198 lb (89.8 kg) BMI 30.11 kg/m Physical Exam General: alert, appears stated age, and cooperative Abdomen: soft and nondistended Back: straight, CVA tenderness absent : Drain output minimal Labs: WBC Lab Results Component Value Date WBC 5.3 07/05/2023 BMP Lab Results Component Value Date NA 139 07/05/2023 K 3.8 07/05/2023 CL 108 (H) 07/05/2023 CO2 22 07/05/2023 BUN 12 07/05/2023 CREATININE 0.89 07/05/2023 GLUCOSE 118 (H) 07/05/2023 CALCIUM 9.1 07/05/2023 PSA No results found for: PSA UA Lab Results Component Value Date COLORU Yellow 04/26/2023 GLUCOSEU Normal 04/26/2023 UROBILINOGEN Normal 04/26/2023 Review: Records reviewed from [facility] and [facility] Impression/Plan There are no diagnoses linked to this encounter. He presented with fever 2.5 months post RALP. He denies pelvic pain or dysuria. To work up fever, CT was performed showing pelvic fluid collection, which led to pelvic drain being placed Culture results from the fluid collection were negative I dont suspect the pelvic lymphocele to be the cause of his fever as it was not infectious, and small asymptomatic pelvic lymphoceles are common post pelvic lymph node dissection Drain output has been negligible DC drain today CT pelvis in 2 weeks Post op PSA due then PSA was for some reason checked 19 days post op, it was 0.09, however this wasn't adequate time for daniel. No follow-ups on file. Avtar Babin MD 07/10/23 8:06 AM documented in this encounter [facility] 07-10-2023 History of Present illness Narrative Images from the original note were not included. Avtar Babin MD 07/10/2023 at 8:06 AM Office follow up PATIENT NAME: Cade Islas DATE OF : 1945 TODAY'S DATE: 07/10/2023 CHIEF COMPLAINT: Chief Complaint Patient presents with Hospital Follow-up IR Drain for pelvic fluid collection./ Has Ct Scan scheduled for 07/19/23 Subjective: Mr. Islas is a 78 y.o. male who presents to the office for follow up of prostate cancer He does come in with pelvic drain, placed for fevers of unknown origin He had bilateral small asymptomatic pelvic lymphoceles. Only the right side was able to be drained Review of Systems Constitutional: Negative for activity change, chills, fatigue and fever. Gastrointestinal: Negative for abdominal distention and abdominal pain. Genitourinary: Negative for decreased urine volume, difficulty urinating, hematuria and urgency. Past Medical History: Past Medical History: Diagnosis Date Diabetes (HCC) GERD (gastroesophageal reflux disease) History of chronic atrial fibrillation Hyperlipidemia Hypertension Hypothyroidism Pacemaker Thrombocytopenia (HCC) Past Surgical History: Past Surgical History: Procedure Laterality Date ATRIAL CARDIAC PACEMAKER INSERTION CHOLECYSTECTOMY PACEMAKER (HISTORICAL) SPINAL CORD STIMULATOR IMPLANT Allergies: Patient has no known allergies. Social History: Social History Socioeconomic History Marital status: Spouse name: Not on file Number of children: Not on file Years of education: Not on file Highest education level: Not on file Occupational History Not on file Tobacco Use Smoking status: Never Smokeless tobacco: Never Vaping Use Vaping Use: Never used Substance and Sexual Activity Alcohol use: Not Currently Comment: occ Drug use: Never Sexual activity: Not on file Other Topics Concern Not on file Social History Narrative Not on file Social Determinants of Health Financial Resource Strain: Low Risk (06/30/2023) Overall Financial Resource Strain (CARDIA) Difficulty of Paying Living Expenses: Not hard at all Food Insecurity: No Food Insecurity (06/30/2023) Hunger Vital Sign Worried About Running Out of Food in the Last Year: Never true Ran Out of Food in the Last Year: Never true Transportation Needs: No Transportation Needs (06/30/2023) PRAPARE - Transportation Lack of Transportation (Medical): No Lack of Transportation (Non-Medical): No Physical Activity: Insufficiently Active (06/30/2023) Exercise Vital Sign Days of Exercise per Week: 5 days Minutes of Exercise per Session: 20 min Stress: No Stress Concern Present (06/30/2023) [place] [employer] - Occupational Stress Questionnaire Feeling of Stress : Not at all Social Connections: Unknown (06/30/2023) Social Connection and Isolation Panel [NHANES] Frequency of Communication with Friends and Family: More than three times a week Frequency of Social Gatherings with Friends and Family: More than three times a week Attends [employer] Services: Not on file Active Member of Clubs or Organizations: Yes Attends Club or Organization Meetings: 1 to 4 times per year Marital Status: Intimate Partner Violence: Not At Risk (06/30/2023) Humiliation, Afraid, Rape, and Kick questionnaire Fear of Current or Ex-Partner: No Emotionally Abused: No Physically Abused: No Sexually Abused: No Housing Stability: Low Risk (06/30/2023) Housing Stability Vital Sign Unable to Pay for Housing in the Last Year: No Number of Places Lived in the Last Year: 1 Unstable Housing in the Last Year: No Family History: Medications Prior to Admission medications Medication Sig Start Date End Date Taking? Authorizing Provider amitriptyline (Elavil) 100 MG tablet Take 100 mg by mouth Nightly. 03/02/23 Yes Historical Provider, amLODIPine (Norvasc) 5 MG tablet 10/09/22 Yes Historical Provider, amoxicillin-clavulanate (Augmentin) 875-125 MG tablet Take 1 tablet by mouth in the morning and 1 tablet before bedtime. Do all this for 15 days. First dose before bed on 07/04, last doses on 07/18.. 07/05/23 07/20/23 Yes Isrrael Arce MD atorvastatin (Lipitor) 10 MG tablet 03/09/23 Yes Historical Provider, fluticasone (Flonase) 50 MCG/ACT nasal spray 08/03/22 Yes Historical Provider, gabapentin (Neurontin) 600 MG tablet Take 600 mg by mouth 3 times daily. 02/19/23 Yes Historical Provider, levothyroxine (Synthroid, Levoxyl) 50 MCG tablet 12/11/22 Yes Historical Provider, lisinopril 40 MG tablet 03/27/23 Yes Historical Provider, metFORMIN XR (Glucophage-XR) 500 MG 24 hr tablet Take 500 mg by mouth 2 times daily. 03/20/23 Yes Historical Provider, omeprazole (PriLOSEC) [address] capsule 03/01/23 Yes Historical Provider, potassium chloride ER (Micro-K) 10 MEQ ER capsule 01/14/23 Yes Historical Provider, Semaglutide, 2 MG/DOSE, (Ozempic, 2 MG/DOSE,) 8 MG/3ML solution pen-injector Inject under the skin. 05/24/22 Yes Historical Provider, senna-docusate sodium (Senokot-S) 8.6-50 MG tablet Take 2 tablets by mouth Nightly for 5 days. Skip if having diarrhea. 07/05/23 07/10/23 Yes Isrrael Arce MD sotalol (Betapace) 240 MG tablet every 12 hours. 04/06/23 Yes Historical Provider, tamsulosin (Flomax) 0.4 MG 24 hr capsule 02/16/23 Yes Historical Provider, Vascepa 1 g capsule 12/11/22 Yes Historical Provider, Xarelto 20 MG tablet Take 20 mg by mouth 1 (one) time each day. 11/11/22 Yes Historical Provider, HYDROcodone-acetaminophen ([place]) 5-325 MG tablet Take 1 tablet by mouth every 6 hours as needed for moderate pain (4-6) or severe pain (7-10) for up to 3 days. 07/05/23 07/08/23 Isrrael Arce MD HYDROcodone-acetaminophen ([place]) 7.5-325 MG tablet 03/02/23 07/05/23 Historical Provider, Vitals: BP 111/63 Pulse 70 Ht 5' 8 (1.727 m) Wt 198 lb (89.8 kg) BMI 30.11 kg/m Physical Exam General: alert, appears stated age, and cooperative Abdomen: soft and nondistended Back: straight, CVA tenderness absent : Drain output minimal Labs: WBC Lab Results Component Value Date WBC 5.3 07/05/2023 BMP Lab Results Component Value Date NA 139 07/05/2023 K 3.8 07/05/2023 CL 108 (H) 07/05/2023 CO2 22 07/05/2023 BUN 12 07/05/2023 CREATININE 0.89 07/05/2023 GLUCOSE 118 (H) 07/05/2023 CALCIUM 9.1 07/05/2023 PSA No results found for: PSA UA Lab Results Component Value Date COLORU Yellow 04/26/2023 GLUCOSEU Normal 04/26/2023 UROBILINOGEN Normal 04/26/2023 Review: Records reviewed from [facility] and [facility] Impression/Plan There are no diagnoses linked to this encounter. He presented with fever 2.5 months post RALP. He denies pelvic pain or dysuria. To work up fever, CT was performed showing pelvic fluid collection, which led to pelvic drain being placed Culture results from the fluid collection were negative I dont suspect the pelvic lymphocele to be the cause of his fever as it was not infectious, and small asymptomatic pelvic lymphoceles are common post pelvic lymph node dissection Drain output has been negligible DC drain today CT pelvis in 2 weeks Post op PSA due then PSA was for some reason checked 19 days post op, it was 0.09, however this wasn't adequate time for daniel. No follow-ups on file. Avtar Babin MD 07/10/23 8:06 AM documented in this encounter [facility] 07-10-2023 Miscellaneous Notes Addended by: KOTA SANTOS on: 07/19/2023 02:21 PM Modules accepted: Orders documented in this encounter [facility] 07-10-2023 Note Addended by: KOTA SANTOS on: 07/19/2023 02:21 PM Modules accepted: Orders [facility] 07-05-2023 Nurse Note Late entry- 1500 pt was discharged via wheelchair with family. All belongings with patient [facility] 07-05-2023 Plan of care note Problem: Pain - Adult Goal: Verbalizes/displays adequate comfort level or baseline comfort level Outcome: Completed Problem: Infection - Adult Goal: Absence of infection at discharge Outcome: Completed Problem: Daily Care Goal: Daily care needs are met Outcome: Completed [facility] 07-05-2023 Miscellaneous Notes Problem: Pain - Adult Goal: Verbalizes/displays adequate comfort level or baseline comfort level Outcome: Completed Problem: Infection - Adult Goal: Absence of infection at discharge Outcome: Completed Problem: Daily Care Goal: Daily care needs are met Outcome: Completed Patient Choice Patient Name: CADE ISLAS Date of : 1945 All Providers Sent Referral Name: [facility] Phone: [phone] Address: [address] [place] [address] Start PACC Note Home Health Referral Educated patient and on Home Care and services available. Patient offered choice of available HHC and agreeable to SN services with [facility] - Home Care. Care Types: None Isolation Precautions: No active isolations Social Determinates of Health: Tobacco Use: Low Risk (07/02/2023) Patient History Smoking Tobacco Use: Never Smokeless Tobacco Use: Never Passive Exposure: Not on file Social History Substance and Sexual Activity Alcohol Use Not Currently Comment: occ Social History Substance and Sexual Activity Drug Use Never Does the patient have any financial resource strain? No Does the patient have any food insecurities? No Does the patient have any housing instabilities? No If any of the above is noted as yes - consider a SEWAGE DISPOSAL ENGINEER evaluation once the patient returns home. START PATIENT REGISTRATION INFORMATION Order Information Order Signing Physician: Isrrael Arce MD Service Ordered RN ?: Yes Service Ordered PT ?: No Service Ordered OT ?: No Service Ordered ST ?: No Service Ordered SEWAGE DISPOSAL ENGINEER?:No Service Ordered RADIO COMMENTATOR?: No Following Physician: Nir Le MD Following Physician Overseeing Physician: Nir Le MD (Required for Residents only) Agreeable to Follow? Yes Date/Time of Call 07/05/23 2:33 PM, Spoke with: with stephanie Care Coordination Same Day SOC?: No Primary Care Physician: Nir Le MD Primary Care Physician Primary Care Physician [address]: [address] [place] [phone] Visit Instructions: N/A Service Discharge Location Type: Home with Home Health Care Service Facility Name: N/A Service Floor Facility: N/A Service Room No: N/A Demographics Patient Last Name: Roshan Patient First Name: Cade Language/Communication Barrier: none Service Address: [address] [place] [address] Service City: [facility] ST: [place] Service ZIP: [address] Service (home) Other phone numbers: Telephone Information: Emergency Contact: Extended Emergency Contact Information Primary Emergency Contact: Nicole Islas Address: [address] [place] [id number] [facility] Mobile Relation: Spouse Admission Information Admit Date: 06/30/2023 Patient status at discharge: Inpatient Admitting Diagnosis: Abscess of male pelvis (CMS/HCC) (HCC) [K65.1] Caregiver Information Caregiver First Name: nicole Caregiver Last Name: roshan Caregiver Relationship to Patient spouse Caregiver Caregiver Notes: N/A HITECH [employer] HIGHTECH: HI TECH - DRAIN CARE TYPE: PAMELA Drain ORDERS: maintain right abdominal drain to straight drain END PATIENT REGISTRATION INFORMATION Pt Home Health goal To return home and avoid readmission to the hospital by increasing disease process education and preventing falls. COVID Status 1. Do you have any upper respiratory symptoms (cough, SOB, Fever)? No 2. Have you been exposed to anyone with COVID-19 Virus? No Answer only if pending or positive for COVID-19? 1. Agreeable to wear PPE at each visit? No 2. Is the hospital supplying them with PPE upon Discharge? 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 (AV, ) DM2 with neuropathy HTN HLD Class I obesity d/t excess calories with severe comorbidity Hypothyroidism GERD Insomnia (Elavil) As a result of the above findings & factors, the following mgmt was pursued: - urology and ID following, appreciate recs - vanc + pip/tazo (close monitoring of vanc levels to ensure medication remains in therapeutic range, not causing toxicity, and appropriate for renal function) - replete K via PO - pain control (APAP PO prn, [place] PO prn); add bowel regimen - secure chat with Carline Acosta PA-C for homegoing antbx planning - CM/SW - delirium precautions: increase activity and avoid anticholinergic meds, benzos, etc - DVT prophylaxis: SCDs and encourage ambulation -- restart OAC this evening (NICE guidelines: N/A) Discharge Date: 07/05/23 Referral Source-PACC: (Hospital/Unit): [facility] / [id number] A End PACC Note Images from the original note were not included. Care Management Progress Note SPOKE WITH PT THIS MORNING, WANTS TO GO HOME TODAY. UNDERSTANDS GOING HOME WITH DRAIN, HAS HAD ONE AT HOME IN PAST. ALSO UNDERSTANDS WAITING FOR ID TO MAKE FINAL ATB DECISIONS. HC LIAISON IS FOLLOWING. ANTICIPATE DISCHARGE TO HOME, WILL CONTINUE TO FOLLOW. Discharge Milestones and Delays Expected Date/Time: 07/06/[address] discharge order Complete med reconciliation Case mgmt discharge readiness Clinical Stability Diagnsotic Workup Expected Discharge History Expected Date/Time Set By Reviewed At 07/06/2023 Ramya Mayorga RN 07/05/2023 8:10 AM 07/04/2023 Ramya Mayorga RN 07/04/2023 8:22 AM 07/04/2023 Ramya Mayorga RN 07/03/2023 7:53 AM 07/04/2023 Ramya Mayorga RN 07/02/2023 7:26 AM 07/02/2023 Jonna Day MD 06/30/2023 6:31 AM Length of Stay (Days): 5 GMLOS: No GMLOS Documented The patient is Moderately Stable - Low risk of patient condition declining or worsening The patient's goals for the shift include Rest pain control. The clinical goals for the shift include continued rest and pain control The patient is Moderately Stable - Low risk of patient condition declining or worsening The patient's goals for the shift include Rest The clinical goals for the shift include goal met Images from the original note were not included. Urology Plan of Care 78 y.o. male with bilateral pelvic side wall fluid collections following RALP BPLND 03/2023 -s/p R IR drain placement -CT 07/03 demonstrating interval decreased fluid collection but persistent Patient eager to be discharged. From the urology standpoint, we are okay with discharge with a course of bactrim. I have spoken to the ID team who prefer to wait on sensitivities which hopefully results by tomorrow. Recommend discharged with IR drain in place. He will follow up in the office for repeat imaging to assess size prior to removal of IR drain. Please page or call with questions or concerns. SAY CAMERON MD Urology PGY3 07/04/2023 2:32 PM Spoke with patient's , Nicole, while patient in CT. Explained benefits of home care and the home IVATB process. Nicole is agreeable to the home IVATB process if recommended. Will try back to speak with Cade about HHC. Images from the original note were not included. Care Management Progress Note PT SLEEPING WHEN VISITED THIS MORNING. REMAINS ON IV ZOSYN AND VANC. CT PELVIS AND ABSCESSOGRAM PENDING. ID FOLLOWING. CX + FEW KLEBSIELLA. ANTICIPATE DISCHARGE TO HOME, WILL CONTINUE TO FOLLOW. HC LIAISON ALSO FOLLOWING. Discharge Milestones and Delays Expected Date/Time: 07/04/[address] discharge order Complete med reconciliation Case mgmt discharge readiness Clinical Stability Diagnsotic Workup Expected Discharge History Expected Date/Time Set By Reviewed At 07/04/2023 Ramya Mayorga RN 07/04/2023 8:22 AM 07/04/2023 Ramya Mayorga RN 07/03/2023 7:53 AM 07/04/2023 Ramya Mayorga RN 07/02/2023 7:26 AM 07/02/2023 Jonna Day MD 06/30/2023 6:31 AM Length of Stay (Days): 4 GMLOS: No GMLOS Documented Images from the original note were not included. Care Management Progress Note SPOKE WITH PT THIS MORNING, DOING GOOD. REMAINS ON IV ZOSYN AND VANC. IR DRAIN REMAINS IN PLACE. BC AND URINE CX NEGATIVE, DRAIN CX + GRAM + COCCI AND BACILLI, GRAM -BACILLI. ANTICIPATE DISCHARGE TO HOME, WILL CONTINUE TO FOLLOW. Discharge Milestones and Delays Expected Date/Time: 07/04/[address] discharge order Complete med reconciliation Case mgmt discharge readiness Clinical Stability Diagnsotic Workup Expected Discharge History Expected Date/Time Set By Reviewed At 07/04/2023 Ramya Mayorga RN 07/03/2023 7:53 AM 07/04/2023 Ramya Mayorga RN 07/02/2023 7:26 AM 07/02/2023 Jonna Day MD 06/30/2023 6:31 AM Length of Stay (Days): 3 GMLOS: No GMLOS Documented Care Managment Initial Assessment Date: 07/02/2023 Patient Name: Cade Islas : 1945 Patient Information Source of Information: Patient Cognition/Language: WFL - Within Functional Limits Permission given to speak with patient associate financial representative/caregiver as indicated: Yes Confirmation of Payer with patient/family: Yes Payer Name: [facility] [place]: No Confirmation of Primary Care Physician: Confirmed PCP Name: DR GALLARDO Seen in last 2 years?: Yes Primary Caregiver: Self If assistance needed, confirmed caregiver ready, willing and able to care for patient at discharge: Confirmed with: Living Arrangements Current Residence: Private Residence Number of Floors 2 Number of Entry Steps: Bed/Bath Levels: Separate floors Facility: Facility Name: Plan to Return: Lives with: Spouse/significant other Support Systems: Spouse/significant other Activities of Daily Living Ambulation: Independent Bathing/Dressing: Independent Elimination/Continence/Toileting: Independent Feeding: Independent Who Assists with Activities of Daily Living: Instrumental Activities of Daily Living Prescription Coverage: Yes Pharmacy Used: Medication Management: Independent Transportation/Shopping: Independent Transportation Mode: Car Needs Assistance with Transportation at Discharge: No Meal Preparation: Independent Laundry/Cleaning: Independent Finances/Bill Paying: Independent Communication: Independent Types of Care Services/Equipment Utilized Care Services: (NA) Dialysis Type: NA Durable Medical Equipment: (NA) Patient's Goal/Discharge Plan Patient expects to be discharged to: HOME Discharge Planning Actions: Continue to follow Patient's Choice Rights and [employer] and Collaborative Relationships Disclosed as Indicated for Post-Acute Care: Interdisciplinary Team Engagement: Social Work Referral for: Additional Information: SPOKE WITH PT AND AT BEDSIDE. INTRODUCED SELF AND EXPLAINED ROLE. PT HERE WITH PELVIC ABSCESS, S/P PROSTECTOMY. HAD DRAIN PLACED IN IR THIS MORNING. CURRENTLY ON IV ZOSYN, IV VANC, IV FLUIDS. ID AND UROLOGY FOLLOWING. ANTICIPATE DISCHARGE TO HOME, WILL CONTINUE TO FOLLOW. Ramya Mayorga RN Pt discussed in rounds. Reviewed chart. Pt has [facility] [employer] Medicare insurance. Met with pt, at bedside. Introduced self and role. Shared with pt, and information in [employer] Medicare benefits of [employer] ( 40 hours of in-home help with light cleaning, laundry, errands, companionship) as well as Meal delivery of meals after a hospital discharge ( 1 per year) . Provided flyer on both benefits. No other SW needs. . Patient arrived to CT department from for pelvic drain placement. Dr. Albright in to discuss procedure with patient and informed consent obtained. Patient assisted to CT table and placed supine. finishing machine operator on. 8F drain placed. Specimen collected and sentfor culture. Stay fix and Tegaderm placed. Patient tolerated procedure well. Report called to Eloy BA and patient transferred to . Images from the original note were not included. Urology Plan of Care Chart reviewed. Labs and vitals stable. Release of records faxed to [facility] yesterday in order to obtain imaging. Discussed with IR. Given Xarelto, plan for IR drain placement 07/01. Patient made NPOpMN. Trudy Abdi MD Urology PGY-4 07/01/2023 6:10 AM Page premium cancellation clerk resident with questions documented in this encounter [facility] 07-05-2023 Nurse Note Late entry- 1500 pt was discharged via wheelchair with family. All belongings with patient Discharge instructions given. Medications and appointments discussed. Patient wheeled to lobby. No acute distress noted. Secure chat sent to attending re continuing home meds as well as gipsy preference for pain awaiting response documented in this encounter [facility] 07-05-2023 Nurse Note Discharge instructions given. Medications and appointments discussed. Patient wheeled to lobby. No acute distress noted. [facility] 07-05-2023 Note Formatting of this n ote might be different from the original. Patient Choice Patient Name: CADE ISLAS Date of : 1945 All Providers Sent Referral Name: [facility] Phone: [phone] Address: [address] [place] [id number] [facility] 07-05-2023 Note Formatting of this n ote might be different from the original. Patient Choice Patient Name: CADE ISLAS Date of : 1945 All Providers Sent Referral Name: [facility] [place] Phone: [phone] Address: [address] [place] [id number] [facility] Note Formatting of this n ote is different from the original. Start PACC Note Home Health Referral Educated patient and on Home Care and services available. Patient offered choice of available HHC and agreeable to SN services with [facility] - Home Care. Care Types: None Isolation Precautions: No active isolations Social Determinates of Health: Tobacco Use: Low Risk (07/02/2023) Patient History Smoking Tobacco Use: Never Smokeless Tobacco Use: Never Passive Exposure: Not on file Social History Substance and Sexual Activity Alcohol Use Not Currently Comment: occ Social History Substance and Sexual Activity Drug Use Never Does the patient have any financial resource strain? No Does the patient have any food insecurities? No Does the patient have any housing instabilities? No If any of the above is noted as yes - consider a SEWAGE DISPOSAL ENGINEER evaluation once the patient returns home. START PATIENT REGISTRATION INFORMATION Order Information Order Signing Physician: Isrrael Arce MD Service Ordered RN ?: Yes Service Ordered PT ?: No Service Ordered OT ?: No Service Ordered ST ?: No Service Ordered SEWAGE DISPOSAL ENGINEER?:No Service Ordered RADIO COMMENTATOR?: No Following Physician: Nir Le MD Following Physician Overseeing Physician: Nir Le MD (Required for Residents only) Agreeable to Follow? Yes Date/Time of Call 07/05/23 2:33 PM, Spoke with: vanna with stephanie Care Coordination Same Day SOC?: No Primary Care Physician: Nir Le MD Primary Care Physician Primary Care Physician Address: [address] [place] [phone] Visit Instructions: N/A Service Discharge Location Type: Home with Home Health Care Service Facility Name: N/A Service Floor Facility: N/A Service Room No: N/A Demographics Patient Last Name: Roshan Patient First Name: Cade Language/Communication Barrier: none Service Address: [address] [place] [address] Service City: [place] Service ST: [place] Service ZIP: [address] Service (home) Other phone numbers: Telephone Information: Emergency Contact: Extended Emergency Contact Information Primary Emergency Contact: Nicole Islas Address: [address] [place] [id number] [place] Relation: Spouse Admission Information Admit Date: 06/30/2023 Patient status at discharge: Inpatient Admitting Diagnosis: Abscess of male pelvis (CMS/HCC) (HCC) [K65.1] Caregiver Information Caregiver First Name: nicole Caregiver Last Name: roshan Caregiver Relationship to Patient spouse Caregiver Caregiver Notes: N/A HITECH Hi-Tech List HIGHTECH: HI TECH - DRAIN CARE TYPE: PAMELA Drain ORDERS: maintain right abdominal drain to straight drain END PATIENT REGISTRATION INFORMATION Pt Home Health goal To return home and avoid readmission to the hospital by increasing disease process education and preventing falls. COVID Status 1. Do you have any upper respiratory symptoms (cough, SOB, Fever)? No 2. Have you been exposed to anyone with COVID-19 Virus? No Answer only if pending or positive for COVID-19? 1. Agreeable to wear PPE at each visit? No 2. Is the hospital supplying them with PPE upon Discharge? 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 (AV, ) DM2 with neuropathy HTN HLD Class I obesity d/t excess calories with severe comorbidity Hypothyroidism GERD Insomnia (Elavil) As a result of the above findings & factors, the following mgmt was pursued: - urology and ID following, appreciate recs - vanc + pip/tazo (close monitoring of vanc levels to ensure medication remains in therapeutic range, not causing toxicity, and appropriate for renal function) - replete K via PO - pain control (APAP PO prn, [place] PO prn); add bowel regimen - secure chat with Carline Acosta PA-C for homegoing antbx planning - CM/SW - delirium precautions: increase activity and avoid anticholinergic meds, benzos, etc - DVT prophylaxis: SCDs and encourage ambulation -- restart OAC this evening (NICE guidelines: N/A) Discharge Date: 07/05/23 Referral Source-PACC: (Hospital/Unit): [facility] / [id number] A End PACC Note [facility] 07-05-2023 Note Formatting of this n ote is different from the original. Start PACC Note Home Health Referral Educated patient and on Home Care and services available. Patient offered choice of available HHC and agreeable to SN services with [facility] at Home - Home Care. Care Types: None Isolation Precautions: No active isolations Social Determinates of Health: Tobacco Use: Low Risk (07/02/2023) Patient History Smoking Tobacco Use: Never Smokeless Tobacco Use: Never Passive Exposure: Not on file Social History Substance and Sexual Activity Alcohol Use Not Currently Comment: occ Social History Substance and Sexual Activity Drug Use Never Does the patient have any financial resource strain? No Does the patient have any food insecurities? No Does the patient have any housing instabilities? No If any of the above is noted as yes - consider a SEWAGE DISPOSAL ENGINEER evaluation once the patient returns home. START PATIENT REGISTRATION INFORMATION Order Information Order Signing Physician: Isrrael Arce MD Service Ordered RN ?: Yes Service Ordered PT ?: No Service Ordered OT ?: No Service Ordered ST ?: No Service Ordered SEWAGE DISPOSAL ENGINEER?:No Service Ordered RADIO COMMENTATOR?: No Following Physician: Nir Le MD Following Physician Overseeing Physician: Nir Le MD (Required for Residents only) Agreeable to Follow? Yes Date/Time of Call 07/05/23 2:33 PM, Spoke with: vanna with [facility] [place] Same Day SOC?: No Primary Care Physician: Nir Le MD Primary Care Physician Primary Care Physician Address: [address] [place] [id number] Visit Instructions: N/A Service Discharge Location Type: Home with Home Health Care Service Facility Name: N/A Service Floor Facility: N/A Service Room No: N/A Demographics Patient Last Name: Roshan Patient First Name: Cade Language/Communication Barrier: none Service Address: [facility] [address] Service City: [facility] ST: [place] Service ZIP: [address] Service (home) Other phone numbers: Telephone Information: Emergency Contact: Extended Emergency Contact Information Primary Emergency Contact: Nicole Islas Address: [facility] [place] [address] [facility] [place] Relation: Spouse Admission Information Admit Date: 06/30/2023 Patient status at discharge: Inpatient Admitting Diagnosis: Abscess of male pelvis (CMS/HCC) (HCC) [K65.1] Caregiver Information Caregiver First Name: nicole Caregiver Last Name: roshan Caregiver Relationship to Patient spouse Caregiver Caregiver Notes: N/A HITECH [employer] List HIGHTECH: HI TECH - DRAIN CARE TYPE: PAMELA Drain ORDERS: maintain right abdominal drain to straight drain END PATIENT REGISTRATION INFORMATION Pt Home Health goal To return home and avoid readmission to the hospital by increasing disease process education and preventing falls. COVID Status 1. Do you have any upper respiratory symptoms (cough, SOB, Fever)? No 2. Have you been exposed to anyone with COVID-19 Virus? No Answer only if pending or positive for COVID-19? 1. Agreeable to wear PPE at each visit? No 2. Is the hospital supplying them with PPE upon Discharge? 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 (AV, ) DM2 with neuropathy HTN HLD Class I obesity d/t excess calories with severe comorbidity Hypothyroidism GERD Insomnia (Elavil) As a result of the above findings & factors, the following mgmt was pursued: - urology and ID following, appreciate recs - vanc + pip/tazo (close monitoring of vanc levels to ensure medication remains in therapeutic range, not causing toxicity, and appropriate for renal function) - replete K via PO - pain control (APAP PO prn, [place] PO prn); add bowel regimen - secure chat with Carline Acosta PA-C for homegoing antbx planning - CM/SW - delirium precautions: increase activity and avoid anticholinergic meds, benzos, etc - DVT prophylaxis: SCDs and encourage ambulation -- restart OAC this evening (NICE guidelines: N/A) Discharge Date: 07/05/23 Referral Source-PACC: (Hospital/Unit): [facility] / [id number] A End PACC Note [facility] 07-05-2023 Hospital course Narrative Discharge Summary Cade Islas : 1945 ADMIT DATE: 06/30/2023 DISCHARGE DATE: 07/05/2023 PRIMARY CARE PHYSICIAN: Nir Le VISIT STATUS: Admission CODE STATUS: Full Code DISCHARGE DIAGNOSES: Principal Problem: Abscess of male pelvis (CMS/HCC) (HCC) HOSPITAL COURSE: Patient admitted 06/30/2023 for multiple pelvic fluid collections c/f abscesses. Initially presented as transfer from OSH for pelvic fluid collections seen on CT (per outside report: 9x4x5 cm on the right, 4x4x8 cm on the left, with extensive adjacent inflammatory fat stranding around the R). 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 Prostate ca with recent prostatectomy (04/23/23), and recent cholecystectomy for gangrenous gallbladder (). Had F/C for roughly a week prior to going to the ED, Tmax 101. Was prescribed oral antbx by PCP and was feeling improved prior to presentation, but PCP checked labs and sent patient to the ED for lab abnormalities. Underwent placement of drain into the fluid collection on the right side (07/01), unable to safely place a drain into the fluid collection on the left. Culture grew Klebsiella pneumoniae (res: ampicillin & TMP/SMX). Discharged to home with drain in place. SIGNIFICANT DIAGNOSTIC STUDIES: CT-guided Abscess Drainage: 1. Successful Percutaneous placement of a 8 Micronesian drainage catheter into right pelvic fluid collection, yielding 20 mL of white fluid. 2. Drainage catheter was not placed into 5 x 3 cm left pelvic sidewall fluid collection due to lack of safe access window. Short interval follow-up recommended for reevaluation. CONSULTANTS: Urology Infectious diseases RECOMMENDED NEXT STEPS: Finish course of antibiotics (last day 07/18). Repeat CT prior to completion of antibiotics and follow-up with both ID and urology after the imaging is obtained. DISCHARGE MEDICATIONS: Medication List START taking these medications amoxicillin-clavulanate 875-125 MG tablet Commonly known as: Augmentin Take 1 tablet by mouth in the morning and 1 tablet before bedtime. Do all this for 15 days. First dose before bed on 07/04, last doses on 07/18.. HYDROcodone-acetaminophen 5-325 MG tablet Commonly known as: [place] Take 1 tablet by mouth every 6 hours as needed for moderate pain (4-6) or severe pain (7-10) for up to 3 days. Replaces: HYDROcodone-acetaminophen 7.5-325 MG tablet senna-docusate sodium 8.6-50 MG tablet Commonly known as: Senokot-S Take 2 tablets by mouth Nightly for 5 days. Skip if having diarrhea. CONTINUE taking these medications amitriptyline 100 MG tablet Commonly known as: Elavil amLODIPine 5 MG tablet Commonly known as: Norvasc atorvastatin 10 MG tablet Commonly known as: Lipitor fluticasone 50 MCG/ACT nasal spray Commonly known as: Flonase gabapentin 600 MG tablet Commonly known as: Neurontin levothyroxine 50 MCG tablet Commonly known as: Synthroid, Levoxyl lisinopril 40 MG tablet metFORMIN XR 500 MG 24 hr tablet Commonly known as: Glucophage-XR omeprazole [address] capsule Commonly known as: PriLOSEC Ozempic (2 MG/DOSE) 8 MG/3ML solution pen-injector Generic drug: Semaglutide (2 MG/DOSE) potassium chloride ER 10 MEQ ER capsule Commonly known as: Micro-K sotalol 240 MG tablet Commonly known as: Betapace tamsulosin 0.4 MG 24 hr capsule Commonly known as: Flomax Vascepa 1 g capsule Generic drug: Icosapent Ethyl Xarelto 20 MG tablet Generic drug: rivaroxaban STOP taking these medications HYDROcodone-acetaminophen 7.5-325 MG tablet Commonly known as: [place] Replaced by: HYDROcodone-acetaminophen 5-325 MG tablet Where to Get Your Medications These medications were sent to [id number] - [place], [place] - [address] [facility] [address] [facility] [id number] amoxicillin-clavulanate 875-125 MG tablet HYDROcodone-acetaminophen 5-325 MG tablet senna-docusate sodium 8.6-50 MG tablet DIET: Adult diet Regular; 5 carb choices (75 gm/meal) ACTIVITY: Restrictions as per guidelines provided by urology for drain care. PENDING STUDIES: Fluid culture with preliminary result. DISPOSITION: Home with Home Health Care FACILITY/HOME CARE AGENCY NAME: NICOLE Follow up with Nir Le MD [address] [facility] [phone] Schedule an appointment as soon as possible for a visit in 1 week(s) Carline Acosta PA-C [address] [facility] [address] [facility] [address] Follow up Follow-up within 2-weeks (towards completion of antibiotics). Avtar Babin MD [address] [facility] [address] [facility] [id number] Follow up Follow-up within 2-weeks (towards completion of antibiotics). [facility] Special Procedures [address] [place] [address] of the abdomen & pelvis, schedule with the radiology department at [facility]. Should be completed a few days before the course of antibiotics is completed, and before appointments with infectious diseases & urology. DISCHARGE TIME: 38 minutes SIGNED: Isrrael Arce MD 07/05/2023, 12:22 PM PHYSICAL EXAM: Vitals: BP 142/83 (BP Location: Right arm, Patient Position: Lying) Pulse 79 Temp 36.3 C (97.4 F) (Temporal) Resp 18 Ht 5' 8 (1.727 m) Wt 198 lb 8 oz (90 kg) SpO2 96% BMI 30.18 kg/m Pulse Ox: SpO2 Av.3 % Min: 96 % Max: 98 % General appearance: Obese. NAD. Cooperative with exam. Respiratory: CTAB. Normal effort. Cardiovascular: RRR. No M/R/G. Abdomen: NBS. Soft. NT. Suprapubic drain, slight cream-colored output. Neurologic: Alert. Answering questions & following directions appropriately. documented in this encounter [facility] 07-05-2023 History of Present illness Narrative Vancomycin therapy has been discontinued by Mary Grace Cesar PA-C on 07/05/23. Thank you for the consult. Pharmacy signing off for vancomycin dosing. Matthew Guzman RPh, PharmD Date: 07/05/23 Time: 11:42 AM Images from the original note were not included. [facility] - Infectious Diseases Advanced Practice Provider Progress Note Subjective: Assuming care. Following patient for pelvic abscess s/p IR drain 07/01. Notes reviewed. Patient reports feeling well overall with no new issues or complaints. No abd pain, n/v/d overnight. Denies fever or chills. Eager to go home. Vitals: Patient Vitals for the past 24 hrs: BP Temp Temp src Pulse Resp SpO2 07/05/23 0749 142/83 36.3 C (97.4 F) Temporal 79 18 96 % 07/05/23 0509 136/72 37 C (98.6 F) Temporal 80 18 98 % 07/04/23 1755 124/81 36.7 C (98 F) Temporal 79 17 98 % Physical Exam: Physical Exam Vitals and nursing note reviewed. Constitutional: General: He is not in acute distress. Appearance: Normal appearance. He is normal weight. He is ill-appearing. Comments: NAD sitting up in chair. Interactive, cooperative, conversant. HENT: Mouth/Throat: Mouth: Mucous membranes are moist. Eyes: Extraocular Movements: Extraocular movements intact. Cardiovascular: Rate and Rhythm: Normal rate and regular rhythm. Pulses: Normal pulses. Heart sounds: Normal heart sounds. Pulmonary: Effort: Pulmonary effort is normal. Breath sounds: Normal breath sounds. No wheezing, rhonchi or rales. Comments: Breathing comfortably on room air. Abdominal: General: Abdomen is flat. Bowel sounds are normal. There is no distension. Palpations: Abdomen is soft. Tenderness: There is no abdominal tenderness. There is no guarding. Comments: + RLQ drain with scant brown/bloody and cloudy fluid Musculoskeletal: Right lower leg: No edema. Left lower leg: No edema. Skin: General: Skin is warm and dry. Neurological: General: No focal deficit present. Mental Status: He is alert and oriented to person, place, and time. Sensory: No sensory deficit. Psychiatric: Mood and Affect: Mood normal. Behavior: Behavior normal. Thought Content: Thought content normal. Labs: Recent Labs 07/03/23 0128 07/04/23 0357 07/05/23 0052 NA 138 135 139 K 3.8 3.3* 3.8 CL 104 105 108* CO2 25 21* 22 BUN 10 10 12 CREATININE 0.92 0.84 0.89 GLUCOSE 108* 100 118* CALCIUM 9.2 8.6 9.1 Recent Labs 07/03/23 0128 07/04/23 0357 07/05/23 0052 WBC 5.3 4.9 5.3 HGB 12.7* 12.6* 13.0 HCT 39.3* 38.3* 38.9* PLT 283 239 272 LYMPHOPCT 17.5 19.6 15.8 MONOPCT 12.1 11.9 11.5 BASOPCT 0.4 0.6 0.6 NEUTROABS 3.5 3.2 3.7 Micro: No results for input(s): COVID19 in the last 72 hours. 06/29 Blood Cx: NGTD 07/01 Abd abscess: klebisella pneumoniae 01/2023 [facility] bile cx: mod atopobium species Lines: PIV Radiography/Echo/Other: 07/03 CT pelvis 1. Interval decrease in the size of the right pelvic fluid collection containing an indwelling pigtail catheter. A minimal amount of fluid surrounds this catheter. 2. Unchanged hypodense collection in the left hemipelvis. 3. Additional chronic findings as above. Antimicrobials,Start/End Dates: Vancomycin: 06/29- 07/04 Cipro: 06/29-06/30 Pip-Tazo: 06/30- 07/04 Impression: R and L sided pelvic fluid collections s/p IR drain placement in RLQ on 07/[address] drain for L sided collection Cx + k pneumo Prostate CA s/p prostatectomy (04/23/23) Hx gangrenous gallbladder s/p cholecystectomy (01/2023) CKD Presence of pacemaker Hypothyroidism GERD Plan: Susceptibilities reviewed. Discontinue pip tazo and vancomycin. Begin amox clav 875-125mg PO q12h. Plan for 2 week minimum course through 07/19/23. Course may be extended pending resolution of fluid collections. Repeat CT a/p w contrast to be ordered as outpatient. Follow up with Carline Acosta at [facility]. ID to follow. OK to next phase of care from ID standpoint. Discussed with Dr. Benedict Cesar [facility] Based on diagnoses and management, combination of acute and chronic problems, exacerbations and/or acuity, this visit should be considered to be of high complexity. Pharmacy Consult to Dose Vancomycin: Follow Up Note Recent Labs 07/03/23 0128 07/04/23 0357 07/05/23 0052 BUN 10 10 12 CREATININE 0.92 0.84 0.89 Updated InsightRx: [x] doses administered [x] SCr [] random level Continue current Vancomycin regimen of 1250 mg every 12 hours, predicted AUC = 574 mg/L*hr (goal 400-600 mg/L*hr) which is therapeutic. Continue current dose and frequency. Next vancomycin level due 07/08/23 unless renal function changes. Will follow. Matthew Guzman PharmD 07/05/23 7:21 AM Images from the original note were not included. [facility] - Infectious Diseases Advanced Practice Provider Progress Note Subjective: Following patient for pelvic abscess s/p IR drain 07/01. Notes reviewed. Patient reports feeling well overall with no new issues or complaints. Denies pain near drain site; denies abdominal pain. Denies fever, chills, CP, SOB, N/V, and any bowel or urinary changes. No other new exacerbating or alleviating factors. Vitals: Patient Vitals for the past 24 hrs: BP Temp Temp src Pulse Resp SpO2 Weight 07/04/23 0600 -- -- -- -- -- -- 90 kg (198 lb 8 oz) 07/04/23 0555 113/75 36.8 C (98.3 F) Temporal 80 18 97 % -- 07/03/23 1735 133/76 36.5 C (97.7 F) Temporal 67 16 94 % -- 07/03/23 1121 121/63 36.8 C (98.3 F) Temporal 62 18 97 % -- Physical Exam: Physical Exam Vitals and nursing note reviewed. Constitutional: General: He is not in acute distress. Appearance: Normal appearance. He is normal weight. He is ill-appearing. Comments: NAD sitting in chair. Interactive, cooperative, conversant. HENT: Mouth/Throat: Mouth: Mucous membranes are moist. Pharynx: Oropharynx is clear. Eyes: Extraocular Movements: Extraocular movements intact. Conjunctiva/sclera: Conjunctivae normal. Pupils: Pupils are equal, round, and reactive to light. Cardiovascular: Rate and Rhythm: Normal rate and regular rhythm. Pulses: Normal pulses. Heart sounds: Normal heart sounds. Pulmonary: Effort: Pulmonary effort is normal. Breath sounds: Normal breath sounds. No wheezing, rhonchi or rales. Comments: Breathing comfortably on room air. Abdominal: General: Abdomen is flat. Bowel sounds are normal. There is no distension. Palpations: Abdomen is soft. Tenderness: There is no abdominal tenderness. There is no guarding. Comments: Soft, non-distended. Non-tender. No suprapubic/flank tenderness + RLQ drain with scant brown-tinged fluid Musculoskeletal: Right lower leg: No edema. Left lower leg: No edema. Skin: General: Skin is warm and dry. Neurological: General: No focal deficit present. Mental Status: He is alert and oriented to person, place, and time. Psychiatric: Mood and Affect: Mood normal. Behavior: Behavior normal. Labs: Recent Labs 07/02/23 01007/03/23 0128 07/04/23 0357 NA 137 138 135 K 3.7 3.8 3.3* CL 107 104 105 CO2 22 25 21* BUN 10 10 10 CREATININE 0.80 0.92 0.84 GLUCOSE 102* 108* 100 CALCIUM 8.9 9.2 8.6 Recent Labs 07/02/23 01007/03/23 0128 07/04/23 0357 WBC 7.8 5.3 4.9 HGB 12.3* 12.7* 12.6* HCT 38.9* 39.3* 38.3* PLT 250 283 239 LYMPHOPCT 10.2* 17.5 19.6 MONOPCT 11.5 12.1 11.9 BASOPCT 0.1 0.4 0.6 NEUTROABS 6.0 3.5 3.2 Micro: No results for input(s): COVID19 in the last 72 hours. 06/29 Blood Cx: NGTD 07/01 Abd abscess: GNB, GPC, GPB Lines: PIV Radiography/Echo/Other: N/A Antimicrobials,Start/End Dates: Vancomycin: 06/29- present Cipro: 06/29-06/30 Pip-Tazo: 06/30- present Impression: Pelvic fluid collection s/p IR drain 07/01. Cx GNB, GPC, GPB Prostate CA s/p prostatectomy (04/23/23) Hx gangrenous gallbladder s/p cholecystectomy (01/2023) CKD Presence of pacemaker Hypothyroidism GERD Plan: Following patient for pelvic fluid collections. S/p IR drain of R pelvic fluid collection 07/01. Cx so far with GNB, GPC, and GPB on stain. L pelvic sidewall collection was not drained dt lack of safe access. Continue Vanc (Pharm to dose) and Pip-Tazo for now. Continue to follow Cx results and optimize antibiotics as able. Anticipate 10-14 day course total. ID will continue to follow. Based on diagnoses and management, combination of acute and chronic problems, exacerbations and/or acuity, this visit should be considered to be of low complexity. Carline CHAND PA-C Images from the original note were not included. Hospitalist Progress Note 07/04/[phone]: Please page IMS night Hospitalist for any issues. Admit Date: 06/30/2023 PCP: Nir Le MD Room#: [id number] A Brief hospital course: Patient admitted 06/30/2023 for multiple pelvic fluid collections c/f abscesses. Initially presented as transfer from OSH for pelvic fluid collections seen on CT (per outside report: 9x4x5 cm on the right, 4x4x8 cm on the left, with extensive adjacent inflammatory fat stranding). 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 Prostate ca with recent prostatectomy (04/23/23), and recent cholecystectomy for gangrenous gallbladder (). Had F/C for roughly a week prior to going to the ED, Tmax 101. Was prescribed oral antbx by PCP and was feeling improved prior to presentation, but PCP checked labs and sent patient to the ED for lab abnormalities. Underwent placement of drain into the fluid collection on the right side (07/01), unable to safely place a drain into the fluid collection on the left. Subjective: Interval History: No overnight issues. Starting to have some diarrhea, has had this happen in the past with antibiotics. No other concerns other than desire to leave the hospital. Adult diet Regular; 5 carb choices (75 gm/meal) 24HR INTAKE/OUTPUT: Intake/Output Summary (Last 24 hours) at 07/04/2023 0906 Last data filed at 07/04/2023 0645 Gross per 24 hour Intake 650 ml Output 15 ml Net 635 ml Objective: Vitals: BP 113/75 Pulse 80 Temp 36.8 C (98.3 F) (Temporal) Resp 18 Ht 5' 8 (1.727 m) Wt 198 lb 8 oz (90 kg) SpO2 97% BMI 30.18 kg/m Pulse Ox: SpO2 Av % Min: 94 % Max: 97 % General appearance: Obese. NAD. Cooperative with exam. Sitting in bedside chair. Respiratory: CTAB. Normal effort. Cardiovascular: RRR. No M/R/G. Abdomen: NBS. Soft. NT. Suprapubic drain with ongoing drainage similar in appearance, but output has fallen-off. Neurologic: Alert. Answering questions & following directions appropriately. Weight Trend Wt Readings from Last 5 Encounters: 07/04/23 198 lb 8 oz (90 kg) 05/10/23 204 lb (92.5 kg) 05/01/23 205 lb (93 kg) 04/23/23 207 lb (93.9 kg) 04/18/23 207 lb 6.4 oz (94.1 kg) Labs/Studies: The following labs and/or studies were reviewed by me as part of today's encounter. HEME: Recent Labs 07/02/2310807/03/2312707/04/23 035 WBC 7.8 5.3 4.9 RBC 4.34* 4.52 4.32* HGB 12.3* 12.7* 12.6* HCT 38.9* 39.3* 38.3* MCV 89.6 86.9 88.7 RDW 15.4* 15.2* 14.7 PLT 250 283 239 CHEM: Recent Labs 07/02/2310807/03/23 0128 07/04/23 035 NA 137 138 135 K 3.7 3.8 3.3* CL 107 104 105 CO2 22 25 21* BUN 10 10 10 CREATININE 0.80 0.92 0.84 EGFR >90.0 85.7 89.8 GLUCOSE 102* 108* 100 CALCIUM 8.9 9.2 8.6 ANIONGAP 8 9 10 No results for input(s): MG, PHOS, ALBUMIN, CRP, SEDRATE, CKTOTAL in the last 72 hours. (MG, CRP, SEDRATE, and CKTOTAL are separate not part of a panel; PHOS may be separate or part of a RENAL panel) LIVER: No results for input(s): AST, ALT, BILITOT, BILIDIR, ALKPHOS, ALBUMIN, PROT, LIPASE, GGT in the last 72 hours. (on any date where BILIDIR is present then there is a full hepatic panel, not a CMP; lipase & GGT are separate labs not part of a panel) URINE: No results for input(s): COLORU, CLARITYU, SONG, LEUKOCYTESU, NITRITEU, PROTUR, GLUCOSEU, BILIRUBINU, KETONESU, UROBILINOGEN, BLOODU in the last 72 hours. No results for input(s): RBCU, WBCU, SQUAMEPIU, BACTERIAU, MUCUSU, HYALCASTULPF, CREATU, SODIUMURR, UREAUR, OSMOU in the last 72 hours. COAG: No results for input(s): PROTIME, INR, PTT in the last 72 hours. CARDIAC: No results for input(s): TROPONINI in the last 72 hours. No results found for: BNP Recent Labs 07/01/23 2156 07/02/23 0808 07/02/23 1357 07/02/23 1657 07/02/23 1926 07/03/23 0749 POCGLU 105* 84 117* 104* 103* 98 No results for input(s): LACTATE in the last 72 hours. No results found for: DDIMER, PROCAL, COVID19, HGBA1C, TSH, UZINFFHG21, FOLATE, VITD25, CHOL, TRIG, HDL, LDLCALC Urine Culture: Results for orders placed or performed during the hospital encounter of 04/26/23 Urine culture Specimen: Urine, Clean Catch Result Value Ref Range Urine Culture No growth (<1,000 CFU/mL) Blood Culture: Results for orders placed or performed during the hospital encounter of 06/30/23 Blood culture Site #2 - Suspected Infection Specimen: Blood, Venous Result Value Ref Range Blood Culture No growth at 72 hours Blood culture Site #1 - Suspected Infection Specimen: Blood, Venous Result Value Ref Range Blood Culture No growth at 72 hours Body fluid culture in-process, starting to grow Kleb pneumo (as-of 07/03) CT-guided Abscess Drainage: 1. Successful Percutaneous placement of a 8 Micronesian drainage catheter into right pelvic fluid collection, yielding 20 mL of white fluid. 2. Drainage catheter was not placed into 5 x 3 cm left pelvic sidewall fluid collection due to lack of safe access window. Short interval follow-up recommended for reevaluation. Currently Ordered Medications: Scheduled PRN amitriptyline, 100 mg, Oral, Nightly amLODIPine, 5 mg, Oral, Daily atorvastatin, 10 mg, Oral, Nightly fluticasone, 1 spray, Each Nostril, Daily gabapentin, 300 mg, Oral, TID levothyroxine, 50 mcg, Oral, qAM AC lisinopril, 40 mg, Oral, Daily pantoprazole, 40 mg, Oral, qAM AC piperacillin-tazobactam, 3,375 mg, IntraVENous, q8h rivaroxaban, 20 mg, Oral, Daily with evening meal senna-docusate sodium, 2 tablet, Oral, Nightly sodium chloride 0.9%, 5-40 mL, IntraVENous, q12h sotalol, 240 mg, Oral, q12h tamsulosin, 0.4 mg, Oral, Daily vancomycin, 1,250 mg, IntraVENous, q12h PRN medications: acetaminophen OR acetaminophen, hydrALAZINE, HYDROcodone - acetaminophen, naloxone, ondansetron ODT OR ondansetron, polyethylene glycol (PEG) 3350, sodium chloride, sodium chloride 0.9% Continuous Medical Decision Making: Acute, acute on chronic, unstable/uncontrolled chronic problems: Bilateral pelvic fluid collections c/f abscesses, s/p drain placement into the R fluid collection (07/01) Had cholecystectomy for gangrenous gallbladder (), unknown if related to the above Fluid from collection on R with polymicrobial gram stain, culture NGTD Prostate ca with recent prostatectomy (04/23/23), unknown if related to the above Hypokalemia Stable chronic problems affecting care, new non-acute diagnoses: pAfib (on OAC) 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 (AV, ) DM2 with neuropathy HTN HLD Class I obesity d/t excess calories with severe comorbidity Hypothyroidism GERD Insomnia (Elavil) As a result of the above findings & factors, the following mgmt was pursued: - urology and ID following, appreciate recs - vanc + pip/tazo (close monitoring of vanc levels to ensure medication remains in therapeutic range, not causing toxicity, and appropriate for renal function) - replete K via PO - pain control (APAP PO prn, [place] PO prn); add bowel regimen - secure chat with Carline Acosta PA-C for homegoing antbx planning - CM/SW - delirium precautions: increase activity and avoid anticholinergic meds, benzos, etc - DVT prophylaxis: SCDs and encourage ambulation -- restart OAC this evening (NICE guidelines: N/A) Data: (CAT1) Reviewed 2 notes from different specialty or health system (each=1). (CAT1) Reviewed 2 labs/studies previously ordered by me not previously counted (each=1, panels count as 1). Advance Directive: Full Code Anticipated Discharge - Date - 07/04-07/05? - Location - Home with [facility] - Pending the following - urology & ID recs Isrrael Arce MD Division of Hospitalist Medicine Inpatient Medical Services/[facility] Data: Extensive (Two out of three: 3x CAT1, 1x CAT2, 1x CAT3) Complexity: Acute illness or injury posing a threat to life or body function (HIGH). Risk: Use/consideration of therapy requiring intensive monitoring: parenteral nephrotoxic antibiotics, ex: gentamycin, vancomycin (anaphylaxis, DAGOBERTO/ATN, renal failure); BMP, trough levels (HIGH). Note: the above MDM determinations are made by me for my own use to estimate my end-of-day billing codes. However, documentation is reviewed by professional coders; following their review of documentation, and in accordance with current AMA CPT, CMS, and ACDIS guidelines, the actual billing code(s) may differ from my estimate. Pharmacy to Dose Vancomycin - Progress Note Recent Labs 07/02/23 0109 07/03/23 0128 07/04/23 0357 BUN 10 10 10 CREATININE 0.80 0.92 0.84 Updated InsightRx: [x] doses administered [x] SCr [] random level Assessment: Current regimen vancomycin 1250 mg every 12 hours, predicted AUC = 535 mg/L*hr (goal 400-600 mg/L*hr) Plan: AUC therapeutic, will continue with current regimen and re-check level on 07/07 with AM labs unless SCR changes +/- 0.3 mg/dL in the meantime. Trend serum creatinine. Trend AUC using [employer] Modeling. DATE: 07/04/23 TIME: 7:20 AM Pao Rodriguez PharmD Available via [employer] Secure Chat UROLOGY PROGRESS NOTE PATIENT NAME: Cade Islas DATE OF : 1945 ADMISSION DATE: 06/30/2023 TODAY'S DATE: 07/04/2023 Subjective No fevers or chills. Resting comfortably in bed. Eager to be discharged. Objective VS: BP 113/75 Pulse 80 Temp 36.8 C (98.3 F) (Temporal) Resp 18 Ht 5' 8 (1.727 m) Wt 197 lb 9.6 oz (89.6 kg) SpO2 97% BMI 30.04 kg/m I & O - 24hr: I/O last 3 completed shifts: In: 650 (7.3 mL/kg) [IV Piggyback:650] Out: 40 (0.4 mL/kg) [Drains:40] Weight: 89.6 kg I/O this shift: In: 300 [IV Piggyback:300] Out: - Physical Exam: General: Neck: Resp: Abdomen: male, lying in bed, no acute distress Supple Normal effort, no respiratory distress, on RA Soft, non-tender, nondistended : No suprapubic tenderness, no left or right flank tenderness. Right pelvic drain Skin: Skin color, texture, turgor normal, no rashes or lesions Labs and Imaging Studies Labs: CBC: Lab Results Component Value Date WBC 4.9 07/04/2023 HGB 12.6 (L) 07/04/2023 HCT 38.3 (L) 07/04/2023 MCV 88.7 07/04/2023 PLT 239 07/04/2023 BMP: Lab Results Component Value Date GLUCOSE 100 07/04/2023 CALCIUM 8.6 07/04/2023 NA 135 07/04/2023 K 3.3 (L) 07/04/2023 CO2 21 (L) 07/04/2023 CL 105 07/04/2023 BUN 10 07/04/2023 CREATININE 0.84 07/04/2023 PT/INR: Lab Results Component Value Date INR 1.2 (H) 06/30/2023 PROTIME 12.8 (H) 06/30/2023 Imaging Studies: CT abdomen/pelvis 06/29 IMPRESSION: Right pelvic sidewall abscess measuring 9 x 4 x 5 cm. Extensive adjacent inflammatory fat stranding showing contiguous inflammation with thickened bladder wall. Recommend clinical correlation for probable coexisting cystitis. 4 x 4 x 8 cm collection along the left pelvic sidewall with significantly less evidence of inflammation, although suspect this is probably a developing abscess as well. Assessment and Plan ASSESSMENT: 78 y.o. male with bilateral pelvic side wall fluid collections following RALP BPLND 03/2023 PLAN: - labs and imaging reviewed - Cr wnl, 0.84 - WBC 4(5), improved from 11.47 at admission - outside report with bilateral pelvic wall abscesses measuring R: 9 x 4 x 5cm AND L: 4 x 4 x 8cm - s/p IR drain placement 07/01. No outputs documented overnight. Around 40cc output yesterday - drain cr = serum - drain triglycerides WNL - ID on board for drain cultures - minimal output from drain, consider abscessogram today. Will discuss with team - OSH images available in PACs - Will need repeat imaging to assess collection size however will need accurate drain outputs - Patient restarted xarelto after drain placement - given BPLND, anticipating fluid collections to be consistent with lymphoceles - agree with IV abx for the time being. Infectious disease on board. Appreciate recs - remainder of care per primary team - will d/w Dr. Jil CAMERON MD Urology PGY3 07/04/2023 6:11 AM Images from the original note were not included. [facility] - Infectious Diseases Advanced Practice Provider Progress Note Subjective: Following patient for pelvic abscess s/p IR drain 07/01. Notes reviewed. Patient reports feeling well overall. Reports good appetite and PO intake. Denies fever, chills, CP, SOB, N/V, abdominal pain, and any new bowel, or urinary changes. No other new exacerbating or alleviating factors. Vitals: Patient Vitals for the past 24 hrs: BP Temp Temp src Pulse Resp SpO2 Weight 07/03/23 1121 121/63 36.8 C (98.3 F) Temporal 62 18 97 % -- 07/03/23 0740 127/89 36.7 C (98 F) Oral 73 18 97 % -- 07/03/23 0600 -- -- -- -- -- -- 89.6 kg (197 lb 9.6 oz) 07/03/23 0532 135/83 36.6 C (97.9 F) Temporal 81 16 95 % -- 07/02/23 1809 115/77 36.6 C (97.8 F) Oral 78 16 98 % -- Physical Exam: Physical Exam Vitals and nursing note reviewed. Constitutional: General: He is not in acute distress. Appearance: Normal appearance. He is normal weight. He is ill-appearing. Comments: NAD sitting in bed. Interactive, cooperative, conversant. RN + nursing informatics analyst bedside HENT: Head: Normocephalic and atraumatic. Right Ear: External ear normal. Left Ear: External ear normal. Nose: Nose normal. Mouth/Throat: Mouth: Mucous membranes are moist. Pharynx: Oropharynx is clear. Eyes: Extraocular Movements: Extraocular movements intact. Conjunctiva/sclera: Conjunctivae normal. Pupils: Pupils are equal, round, and reactive to light. Cardiovascular: Rate and Rhythm: Normal rate and regular rhythm. Pulses: Normal pulses. Heart sounds: Normal heart sounds. Pulmonary: Effort: Pulmonary effort is normal. Breath sounds: Normal breath sounds. No wheezing, rhonchi or rales. Comments: Breathing comfortably on room air. Abdominal: General: Abdomen is flat. Bowel sounds are normal. There is no distension. Palpations: Abdomen is soft. Tenderness: There is no abdominal tenderness. There is no guarding. Comments: Softly distended. Non-tender. No suprapubic/flank tenderness + RLQ drain Musculoskeletal: Right lower leg: No edema. Left lower leg: No edema. Skin: General: Skin is warm and dry. Neurological: General: No focal deficit present. Mental Status: He is alert and oriented to person, place, and time. Psychiatric: Mood and Affect: Mood normal. Behavior: Behavior normal. Labs: Recent Labs 07/01/2322007/02/2310807/03/23 0128 NA 135 137 138 K 3.6 3.7 3.8 CL 104 107 104 CO2 23 22 25 BUN 11 10 10 CREATININE 0.65* 0.80 0.92 GLUCOSE 100 102* 108* CALCIUM 8.9 8.9 9.2 Recent Labs 07/01/2322007/02/2310807/03/23 0128 WBC 8.8 7.8 5.3 HGB 11.7* 12.3* 12.7* HCT 35.9* 38.9* 39.3* PLT 217 250 283 LYMPHOPCT 7.5* 10.2* 17.5 MONOPCT 10.4 11.5 12.1 BASOPCT 0.2 0.1 0.4 NEUTROABS 7.1 6.0 3.5 Micro: No results for input(s): COVID19 in the last 72 hours. 06/29 Blood Cx: NGTD 07/01 Abd abscess: GNB, GPC, GPB Lines: PIV Radiography/Echo/Other: Antimicrobials,Start/End Dates: Vancomycin: 06/29- present Cipro: 06/29-06/30 Pip-Tazo: 06/30- present Impression: Pelvic fluid collection s/p IR drain 07/01. Prostate CA s/p prostatectomy (04/23/23) Hx gangrenous gallbladder s/p cholecystectomy (01/2023) CKD Presence of pacemaker Hypothyroidism GERD Plan: Following patient for pelvic fluid collections. Patient had IR drain placed into R pelvic 07/01. Cx so far with GNB, GPC, and GPB on stain. L pelvic sidewall collection was not drained dt lack of safe access. Continue Vanc (Pharm to dose) and Pip-Tazo for now. Follow Cx and optimize antibiotics as able. Anticipate 10-14 day course total. ID will continue to follow. Case and plan discussed with Dr. Mcmullen Based on diagnoses and management, combination of acute and chronic problems, exacerbations and/or acuity, this visit should be considered to be of moderate complexity. Carline CHAND PA-C INTERVENTIONAL RADIOLOGY PROGRESS NOTE Admit Date: 06/30/2023 Subjective: This is a 78 y.o. male who was admitted to [facility] on 06/29. Patient sent to ED by PCP for abnormal labs. Patient transferred to [facility] ED for further management after CT demonstrated pelvic abscess. S/p right pelvic drain placement 07/01. Patient denies abdominal pain, nausea, vomiting. Objective: Vitals: Vitals: 07/03/23 1121 BP: 121/63 Pulse: 62 Resp: 18 Temp: 36.8 C (98.3 F) SpO2: 97% General appearance: Alert, non-toxic, no acute distress. Abdomen: Pelvic drain in place. Dressing C/D/I. No bruising or hematoma. Non tender to palpation. Current output 20 ml's purulent fluid Neurologic: A&O x3, thought content appropriate. DATA: CBC: Lab Results Component Value Date WBC 5.3 07/03/2023 HGB 12.7 (L) 07/03/2023 HCT 39.3 (L) 07/03/2023 MCV 86.9 07/03/2023 PLT 283 07/03/2023 BMP: Lab Results Component Value Date GLUCOSE 108 (H) 07/03/2023 CALCIUM 9.2 07/03/2023 NA 138 07/03/2023 K 3.8 07/03/2023 CO2 25 07/03/2023 CL 104 07/03/2023 BUN 10 07/03/2023 CREATININE 0.92 07/03/2023 INR: Lab Results Component Value Date INR 1.2 (H) 06/30/2023 PROTIME 12.8 (H) 06/30/2023 I&O: I/O last 3 completed shifts: In: 350 (3.9 mL/kg) [IV Piggyback:350] Out: 40 (0.4 mL/kg) [Drains:40] Weight: 89.6 kg I/O this shift: In: 250 [IV Piggyback:250] Out: - Assessment/Plan Cade Islas is a 78 y.o. male who was admitted to [facility] on 06/30/2023 for pelvic abscess. - Successful placement of pelvic drain with IR on 07/01 - Drain functioning appropriately, continue to monitor output. - Continue medical management and disposition per urology I personally spent 15 minutes consulting with patient, of which over 50% was spent counseling. Nya Paiz PA-C Interventional Radiology UROLOGY PROGRESS NOTE PATIENT NAME: Cade Islas DATE OF : 1945 ADMISSION DATE: 06/30/2023 TODAY'S DATE: 07/03/2023 Subjective S/p IR drain placement yesterday. Tolerated procedure well. No nausea, vomiting, fevers or chills. Objective VS: BP 135/83 (BP Location: Right arm, Patient Position: Lying) Pulse 81 Temp 36.6 C (97.9 F) (Temporal) Resp 16 Ht 5' 8 (1.727 m) Wt 200 lb 14.4 oz (91.1 kg) SpO2 95% BMI 30.55 kg/m I & O - 24hr: No intake/output data recorded. I/O this shift: In: 350 [IV Piggyback:350] Out: - Physical Exam: General: Neck: Resp: Abdomen: male, lying in bed, no acute distress Supple Normal effort, no respiratory distress, on RA Soft, non-tender, nondistended : No suprapubic tenderness, no left or right flank tenderness. Right pelvic drain Skin: Skin color, texture, turgor normal, no rashes or lesions Labs and Imaging Studies Labs: CBC: Lab Results Component Value Date WBC 5.3 07/03/2023 HGB 12.7 (L) 07/03/2023 HCT 39.3 (L) 07/03/2023 MCV 86.9 07/03/2023 PLT 283 07/03/2023 BMP: Lab Results Component Value Date GLUCOSE 108 (H) 07/03/2023 CALCIUM 9.2 07/03/2023 NA 138 07/03/2023 K 3.8 07/03/2023 CO2 25 07/03/2023 CL 104 07/03/2023 BUN 10 07/03/2023 CREATININE 0.92 07/03/2023 PT/INR: Lab Results Component Value Date INR 1.2 (H) 06/30/2023 PROTIME 12.8 (H) 06/30/2023 Imaging Studies: CT abdomen/pelvis 06/29 IMPRESSION: Right pelvic sidewall abscess measuring 9 x 4 x 5 cm. Extensive adjacent inflammatory fat stranding showing contiguous inflammation with thickened bladder wall. Recommend clinical correlation for probable coexisting cystitis. 4 x 4 x 8 cm collection along the left pelvic sidewall with significantly less evidence of inflammation, although suspect this is probably a developing abscess as well. Assessment and Plan ASSESSMENT: 78 y.o. male with bilateral pelvic side wall fluid collections following RALP BPLND 03/2023 PLAN: - labs and imaging reviewed - Cr wnl, 0.92 - WBC 5(7.8), improved from 11.47 at admission - outside report with bilateral pelvic wall abscesses measuring R: 9 x 4 x 5cm AND L: 4 x 4 x 8cm - s/p IR drain placement 07/01. No outputs documented overnight. Also drain creatinine ordered 07/01 not collected. Reached out to nursing to do this. - OSH images available in PACs - Will need repeat imaging to assess collection size however will need accurate drain outputs - Patient restarted xarelto after drain placement - given BPLND, anticipating fluid collections to be consistent with lymphoceles - agree with IV abx for the time being - remainder of care per primary team - will d/w Dr. Jil CAMERON MD Urology PGY3 07/03/2023 6:25 AM Images from the original note were not included. Hospitalist Progress Note 07/03/2023 [id number]: Please page IMS night Hospitalist for any issues. Admit Date: 06/30/2023 PCP: Nir Le MD Room#: R0-312/G1-238 A Brief hospital course: Patient admitted 06/30/2023 for multiple pelvic fluid collections c/f abscesses. Initially presented as transfer from OSH for pelvic fluid collections seen on CT (per outside report: 9x4x5 cm on the right, 4x4x8 cm on the left, with extensive adjacent inflammatory fat stranding). 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 Prostate ca with recent prostatectomy (04/23/23), and recent cholecystectomy for gangrenous gallbladder (). Had F/C for roughly a week prior to going to the ED, Tmax 101. Was prescribed oral antbx by PCP and was feeling improved prior to presentation, but PCP checked labs and sent patient to the ED for lab abnormalities. Underwent placement of drain into the fluid collection on the right side (07/01), unable to safely place a drain into the fluid collection on the left. Subjective: Interval History: No overnight issues. at bedside again today. Reports drain is not causing him any pain. Still with regular output, says they emptied 40 mL shortly before I entered room and now back up to 10-15 mL. Adult diet Regular; 5 carb choices (75 gm/meal) 24HR INTAKE/OUTPUT: Intake/Output Summary (Last 24 hours) at 07/03/2023 0600 Last data filed at 07/03/2023 0412 Gross per 24 hour Intake 350 ml Output -- Net 350 ml Objective: Vitals: BP 135/83 (BP Location: Right arm, Patient Position: Lying) Pulse 81 Temp 36.6 C (97.9 F) (Temporal) Resp 16 Ht 5' 8 (1.727 m) Wt 200 lb 14.4 oz (91.1 kg) SpO2 95% BMI 30.55 kg/m Pulse Ox: SpO2 Av.6 % Min: 94 % Max: 100 % General appearance: Obese. NAD. Cooperative with exam. Respiratory: CTAB. Normal effort. Cardiovascular: RRR. No M/R/G. No pedal edema. Abdomen: NBS. Soft. NT. Suprapubic drain with clear cream-colored liquid output, similar appearance to yesterday. Neurologic: Alert. Answering questions & following directions appropriately. Weight Trend Wt Readings from Last 5 Encounters: 07/01/23 200 lb 14.4 oz (91.1 kg) 05/10/23 204 lb (92.5 kg) 05/01/23 205 lb (93 kg) 04/23/23 207 lb (93.9 kg) 04/18/23 207 lb 6.4 oz (94.1 kg) Labs/Studies: The following labs and/or studies were reviewed by me as part of today's encounter. HEME: Recent Labs 07/01/2322007/02/2310807/03/23 0128 WBC 8.8 7.8 5.3 RBC 4.04* 4.34* 4.52 HGB 11.7* 12.3* 12.7* HCT 35.9* 38.9* 39.3* MCV 88.9 89.6 86.9 RDW 15.6* 15.4* 15.2* PLT 217 250 283 CHEM: Recent Labs 07/01/2322007/02/2310807/03/23127 NA 135 137 138 K 3.6 3.7 3.8 CL 104 107 104 CO2 23 22 25 BUN 11 10 10 CREATININE 0.65* 0.80 0.92 EGFR >90.0 >90.0 85.7 GLUCOSE 100 102* 108* CALCIUM 8.9 8.9 9.2 ANIONGAP 7 8 9 Recent Labs 06/30/23 0714 ALBUMIN 3.8 (MG, CRP, SEDRATE, and CKTOTAL are separate not part of a panel; PHOS may be separate or part of a RENAL panel) LIVER: Recent Labs 06/30/23 0714 AST 82* ALT 83* BILITOT 0.9 BILIDIR 0.0 ALKPHOS 441* ALBUMIN 3.8 PROT 8.2 (on any date where BILIDIR is present then there is a full hepatic panel, not a CMP; lipase & GGT are separate labs not part of a panel) URINE: No results for input(s): COLORU, CLARITYU, SONG, LEUKOCYTESU, NITRITEU, PROTUR, GLUCOSEU, BILIRUBINU, KETONESU, UROBILINOGEN, BLOODU in the last 72 hours. No results for input(s): RBCU, WBCU, SQUAMEPIU, BACTERIAU, MUCUSU, HYALCASTULPF, CREATU, SODIUMURR, UREAUR, OSMOU in the last 72 hours. COAG: Recent Labs 06/30/23 0714 PROTIME 12.8* INR 1.2* CARDIAC: No results for input(s): TROPONINI in the last 72 hours. No results found for: BNP Recent Labs 07/01/23 1757 07/01/23 2156 07/02/23 0808 07/02/23 1357 07/02/23 1657 07/02/23 1926 POCGLU 83 105* 84 117* 104* 103* No results for input(s): LACTATE in the last 72 hours. Lab Results Component Value Date PROCAL 0.14 (H) 06/30/2023 Urine Culture: Results for orders placed or performed during the hospital encounter of 04/26/23 Urine culture Specimen: Urine, Clean Catch Result Value Ref Range Urine Culture No growth (<1,000 CFU/mL) Blood Culture: Results for orders placed or performed during the hospital encounter of 06/30/23 Blood culture Site #2 - Suspected Infection Specimen: Blood, Venous Result Value Ref Range Blood Culture No growth at 48 hours Blood culture Site #1 - Suspected Infection Specimen: Blood, Venous Result Value Ref Range Blood Culture No growth at 48 hours Body fluid culture in-process (NG as-of 07/02) CT-guided Abscess Drainage: 1. Successful Percutaneous placement of a 8 Micronesian drainage catheter into right pelvic fluid collection, yielding 20 mL of white fluid. 2. Drainage catheter was not placed into 5 x 3 cm left pelvic sidewall fluid collection due to lack of safe access window. Short interval follow-up recommended for reevaluation. Currently Ordered Medications: Scheduled PRN amitriptyline, 100 mg, Oral, Nightly amLODIPine, 5 mg, Oral, Daily atorvastatin, 10 mg, Oral, Nightly fluticasone, 1 spray, Each Nostril, Daily gabapentin, 300 mg, Oral, TID levothyroxine, 50 mcg, Oral, qAM AC lisinopril, 40 mg, Oral, Daily pantoprazole, 40 mg, Oral, qAM AC piperacillin-tazobactam, 3,375 mg, IntraVENous, q8h [Held by provider] rivaroxaban, 20 mg, Oral, Daily with evening meal sodium chloride 0.9%, 5-40 mL, IntraVENous, q12h sotalol, 240 mg, Oral, q12h tamsulosin, 0.4 mg, Oral, Daily vancomycin, 1,250 mg, IntraVENous, q12h PRN medications: acetaminophen OR acetaminophen, hydrALAZINE, HYDROcodone - acetaminophen, naloxone, ondansetron ODT OR ondansetron, polyethylene glycol (PEG) 3350, sodium chloride, sodium chloride 0.9% Continuous sodium chloride, 75 mL/hr, Last Rate: 75 mL/hr (07/02/232115) Medical Decision Making: Acute, acute on chronic, unstable/uncontrolled chronic problems: Bilateral pelvic fluid collections c/f abscesses, s/p drain placement into the R fluid collection (07/01) Had cholecystectomy for gangrenous gallbladder (), unknown if related to the above Fluid from collection on R with polymicrobial gram stain, culture NGTD Prostate ca with recent prostatectomy (04/23/23), unknown if related to the above Stable chronic problems affecting care, new non-acute diagnoses: pAfib (on OAC) 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 (AV, ) DM2 with neuropathy HTN HLD Class I obesity d/t excess calories with severe comorbidity Hypothyroidism GERD Insomnia (Elavil) As a result of the above findings & factors, the following mgmt was pursued: - urology and ID following, appreciate recs - vanc + pip/tazo (close monitoring of vanc levels to ensure medication remains in therapeutic range, not causing toxicity, and appropriate for renal function) - pain control (APAP PO prn, [place] PO prn); add bowel regimen - dc IVF - CM/SW - delirium precautions: increase activity and avoid anticholinergic meds, benzos, etc - DVT prophylaxis: SCDs and encourage ambulation -- restart OAC this evening (NICE guidelines: N/A) Data: NA Advance Directive: Full Code Anticipated Discharge - Date - 07/03-07/04? - Location - Home with [facility] - Pending the following - urology & ID recs Isrrael Arce MD Division of Hospitalist Medicine Inpatient Medical Services/[facility] Complexity: Acute illness or injury posing a threat to life or body function (HIGH). Risk: Use/consideration of therapy requiring intensive monitoring: parenteral nephrotoxic antibiotics, ex: gentamycin, vancomycin (anaphylaxis, DAGOBERTO/ATN, renal failure); BMP, trough levels (HIGH). Note: the above MDM determinations are made by me for my own use to estimate my end-of-day billing codes. However, documentation is reviewed by professional coders; following their review of documentation, and in accordance with current AMA CPT, CMS, and ACDIS guidelines, the actual billing code(s) may differ from my estimate. Images from the original note were not included. [facility] - Infectious Diseases Advanced Practice Provider Progress Note Subjective: Following patient for pelvic abscess. Notes reviewed. Patient had IR drain placed today. He reports feeling well overall with no new issues or complaints. Denies fever, chills, CP, SOB, N/V, abdominal pain, and any new bowel, or urinary changes. No other new exacerbating or alleviating factors. Vitals: Patient Vitals for the past 24 hrs: BP Temp Temp src Pulse Resp SpO2 07/02/23 0915 141/93 -- -- -- -- -- 07/02/23 0914 -- -- -- 83 16 98 % 07/02/23 0910 150/81 -- -- -- -- -- 07/02/23 0909 -- -- -- 83 19 96 % 07/02/23 0905 138/89 -- -- 84 20 94 % 07/02/23 0900 156/84 -- -- 80 22 99 % 07/02/23 0855 151/78 -- -- 83 18 98 % 07/02/23 0853 150/95 -- -- 85 21 98 % 07/02/23 0850 -- -- -- 83 13 99 % 07/02/23 0849 -- -- -- 82 14 99 % 07/02/23 0712 130/63 36.7 C (98 F) Temporal 78 18 100 % 07/01/23 1727 148/84 36.7 C (98 F) Oral 76 16 98 % Physical Exam: Physical Exam Vitals and nursing note reviewed. Constitutional: General: He is not in acute distress. Appearance: Normal appearance. He is normal weight. He is ill-appearing. Comments: NAD sitting edge of bed. Interactive, cooperative, conversant HENT: Head: Normocephalic and atraumatic. Right Ear: External ear normal. Left Ear: External ear normal. Nose: Nose normal. Mouth/Throat: Mouth: Mucous membranes are moist. Pharynx: Oropharynx is clear. Eyes: Extraocular Movements: Extraocular movements intact. Conjunctiva/sclera: Conjunctivae normal. Pupils: Pupils are equal, round, and reactive to light. Cardiovascular: Rate and Rhythm: Normal rate and regular rhythm. Pulses: Normal pulses. Heart sounds: Normal heart sounds. Pulmonary: Effort: Pulmonary effort is normal. Breath sounds: Normal breath sounds. No wheezing, rhonchi or rales. Comments: Breathing comfortably on room air. Abdominal: General: Abdomen is flat. Bowel sounds are normal. There is no distension. Palpations: Abdomen is soft. Tenderness: There is no abdominal tenderness. There is no guarding. Comments: Softly distended. Non-tender. No suprapubic/flank tenderness Musculoskeletal: Right lower leg: No edema. Left lower leg: No edema. Skin: General: Skin is warm and dry. Neurological: General: No focal deficit present. Mental Status: He is alert and oriented to person, place, and time. Psychiatric: Mood and Affect: Mood normal. Behavior: Behavior normal. Labs: Recent Labs 06/30/23 0714 06/30/23 1111 07/01/2322007/02/23 0109 NA 133* -- 135 137 K 4.0 -- 3.6 3.7 CL 103 -- 104 107 CO2 17* -- 23 22 BUN 14 -- 11 10 CREATININE 0.79 -- 0.65* 0.80 GLUCOSE 132* -- 100 102* CALCIUM 9.3 -- 8.9 8.9 PROT 8.2 -- -- -- BILITOT 0.9 -- -- -- ALKPHOS 441* -- -- -- AST 82* -- -- -- ALT 83* -- -- -- PROCAL -- 0.14* -- -- Recent Labs 06/30/23 0714 07/01/23 0221 07/02/23 0109 WBC 11.8* 8.8 7.8 HGB 13.7 11.7* 12.3* HCT 41.8 35.9* 38.9* PLT 233 217 250 LYMPHOPCT 7* 7.5* 10.2* MONOPCT 7 10.4 11.5 BASOPCT -- 0.2 0.1 NEUTROABS -- 7.1 6.0 Micro: No results for input(s): COVID19 in the last 72 hours. 06/29 Blood Cx: NGTD 07/01 Abd abscess: GNB, GPC, GPB Lines: PIV Radiography/Echo/Other: Antimicrobials,Start/End Dates: Vancomycin: 06/29- present Cipro: 06/29-06/30 Pip-Tazo: 06/30- present Impression: Pelvic fluid collection s/p IR drain 07/01. Prostate CA s/p prostatectomy (04/23/23) Hx gangrenous gallbladder s/p cholecystectomy (01/2023) CKD Presence of pacemaker Hypothyroidism GERD Plan: Following patient for concerns of pelvic fluid collections (Imaging from OSH). Patient had IR drain placed into R pelvic fluid collection today, 07/01. Cx in process. L pelvic sidewall collection was not drained dt lack of safe access. Plan to continue Vanc (Pharm to dose) and Pip-Tazo for now. Follow Cx and ptimize antibiotics as able. ID will continue to follow. Case and plan discussed with Dr. Mcmullen Based on diagnoses and management, combination of acute and chronic problems, exacerbations and/or acuity, this visit should be considered to be of moderate complexity. Carline CHAND PA-C Nutrition rescreen completed. Chart reviewed. Patient to be monitored and followed by the diet studio technician. Dietitian available upon request. FAHAD Og Images from the original note were not included. Hospitalist Progress Note 07/02/2023 [phone]: Please page [facility] Hospitalist for any issues. Admit Date: 06/30/2023 PCP: Nir Le MD Room#: [id number] A Brief hospital course: Patient admitted 06/30/2023 for multiple pelvic fluid collections c/f abscesses. Initially presented as transfer from OSH for pelvic fluid collections seen on CT (per outside report: 9x4x5 cm on the right, 4x4x8 cm on the left, with extensive adjacent inflammatory fat stranding). Had F/C for roughly a week prior to going to the ED, Tmax 101. Was prescribed oral antbx by PCP and was feeling improved prior to presentation, but PCP checked labs and sent patient to the ED for lab abnormalities. Underwent placement of drain into the fluid collection on the right side (07/01), unable to safely place a drain into the fluid collection on the left. Subjective: Interval History: IR drain placement today. Seen after drain placement. at bedside. No pain at rest, though does have tenderness in the region of drain placement. NPO diet with enteral medications 24HR INTAKE/OUTPUT: No intake or output data in the 24 hours ending 07/02/23 0844 Objective: Vitals: BP 130/63 Pulse 78 Temp 36.7 C (98 F) (Temporal) Resp 18 Ht 5' 8 (1.727 m) Wt 200 lb 14.4 oz (91.1 kg) SpO2 100% BMI 30.55 kg/m Pulse Ox: SpO2 Av % Min: 98 % Max: 100 % General appearance: Obese. NAD. Cooperative with exam. Respiratory: CTAB. Normal effort. Cardiovascular: RRR. No M/R/G. No pedal edema. Abdomen: NBS. Soft. Tenderness IVO drain site. Suprapubic drain with clear cream-colored liquid output. Neurologic: Sleepy but easily arousable. Answering questions & following directions appropriately. Weight Trend Wt Readings from Last 5 Encounters: 07/01/23 200 lb 14.4 oz (91.1 kg) 05/10/23 204 lb (92.5 kg) 05/01/23 205 lb (93 kg) 04/23/23 207 lb (93.9 kg) 04/18/23 207 lb 6.4 oz (94.1 kg) Labs/Studies: The following labs and/or studies were reviewed by me as part of today's encounter. HEME: Recent Labs 06/30/23 0714 07/01/23 0221 07/02/23 0109 WBC 11.8* 8.8 7.8 RBC 4.70 4.04* 4.34* HGB 13.7 11.7* 12.3* HCT 41.8 35.9* 38.9* MCV 88.9 88.9 89.6 RDW 15.8* 15.6* 15.4* PLT 233 217 250 CHEM: Recent Labs 06/30/23 0714 07/01/23 0221 07/02/23 0109 NA 133* 135 137 K 4.0 3.6 3.7 CL 103 104 107 CO2 17* 23 22 BUN 14 11 10 CREATININE 0.79 0.65* 0.80 EGFR >90.0 >90.0 >90.0 GLUCOSE 132* 100 102* CALCIUM 9.3 8.9 8.9 ANIONGAP 13 7 8 Recent Labs 06/30/23 0714 ALBUMIN 3.8 (MG, CRP, SEDRATE, and CKTOTAL are separate not part of a panel; PHOS may be separate or part of a RENAL panel) LIVER: Recent Labs 06/30/23713 AST 82* ALT 83* BILITOT 0.9 BILIDIR 0.0 ALKPHOS 441* ALBUMIN 3.8 PROT 8.2 (on any date where BILIDIR is present then there is a full hepatic panel, not a CMP; lipase & GGT are separate labs not part of a panel) URINE: No results for input(s): COLORU, CLARITYU, SONG, LEUKOCYTESU, NITRITEU, PROTUR, GLUCOSEU, BILIRUBINU, KETONESU, UROBILINOGEN, BLOODU in the last 72 hours. No results for input(s): RBCU, WBCU, SQUAMEPIU, BACTERIAU, MUCUSU, HYALCASTULPF, CREATU, SODIUMURR, UREAUR, OSMOU in the last 72 hours. COAG: Recent Labs 06/30/23713 PROTIME 12.8* INR 1.2* CARDIAC: No results for input(s): TROPONINI in the last 72 hours. No results found for: BNP Recent Labs 07/01/23 0739 07/01/23 1202 07/01/23 1757 07/01/23 2156 07/02/23 0808 POCGLU 102* 98 83 105* 84 No results for input(s): LACTATE in the last 72 hours. Lab Results Component Value Date PROCAL 0.14 (H) 06/30/2023 Urine Culture: Results for orders placed or performed during the hospital encounter of 04/26/23 Urine culture Specimen: Urine, Clean Catch Result Value Ref Range Urine Culture No growth (<1,000 CFU/mL) Blood Culture: Results for orders placed or performed during the hospital encounter of 06/30/23 Blood culture Site #2 - Suspected Infection Specimen: Blood, Venous Result Value Ref Range Blood Culture No growth at 24 hours Blood culture Site #1 - Suspected Infection Specimen: Blood, Venous Result Value Ref Range Blood Culture No growth at [address]-guided Abscess Drainage: 1. Successful Percutaneous placement of a 8 Micronesian drainage catheter into right pelvic fluid collection, yielding 20 mL of white fluid. 2. Drainage catheter was not placed into 5 x 3 cm left pelvic sidewall fluid collection due to lack of safe access window. Short interval follow-up recommended for reevaluation. Currently Ordered Medications: Scheduled PRN amitriptyline, 100 mg, Oral, Nightly amLODIPine, 5 mg, Oral, Daily atorvastatin, 10 mg, Oral, Nightly fluticasone, 1 spray, Each Nostril, Daily gabapentin, 300 mg, Oral, TID insulin lispro, 0-12 Units, SubCUTAneous, TID WC And insulin lispro, 0-12 Units, SubCUTAneous, Nightly levothyroxine, 50 mcg, Oral, qAM AC lisinopril, 40 mg, Oral, Daily [Held by provider] metFORMIN XR, 500 mg, Oral, BID pantoprazole, 40 mg, Oral, qAM AC piperacillin-tazobactam, 3,375 mg, IntraVENous, q8h [Held by provider] rivaroxaban, 20 mg, Oral, Daily with evening meal sodium chloride 0.9%, 5-40 mL, IntraVENous, q12h sotalol, 240 mg, Oral, q12h tamsulosin, 0.4 mg, Oral, Daily vancomycin, 1,250 mg, IntraVENous, q12h PRN medications: acetaminophen OR acetaminophen, dextrose, dextrose, glucagon (rDNA), glucose, hydrALAZINE, HYDROcodone - acetaminophen, naloxone, ondansetron ODT OR ondansetron, polyethylene glycol (PEG) 3350, sodium chloride, sodium chloride 0.9% Continuous sodium chloride, 75 mL/hr, Last Rate: 75 mL/hr (06/30/23 0717) Medical Decision Making: Acute, acute on chronic, unstable/uncontrolled chronic problems: Bilateral pelvic fluid collections c/f abscesses, s/p drain placement into the R fluid collection (07/01) Had cholecystectomy for gangrenous gallbladder (), unknown if related to the above Prostate ca with recent prostatectomy (04/23/23), unknown if related to the above Stable chronic problems affecting care, new non-acute diagnoses: Afib (on OAC) PPM present DM2, ?neuropathy HTN HLD Hypothyroidism GERD As a result of the above findings & factors, the following mgmt was pursued: - urology and ID following, appreciate recs - vanc + pip/tazo (close monitoring of vanc levels to ensure medication remains in therapeutic range, not causing toxicity, and appropriate for renal function) - MDSSI - has not required any insulin this admission, dc the SSI - CM/SW - delirium precautions: increase activity and avoid anticholinergic meds, benzos, etc - DVT prophylaxis: SCDs and encourage ambulation -- OAC currently held for drainage (NICE guidelines: N/A) Data: (CAT1) Reviewed 3 or more labs/studies ordered by another provider not previously counted (each=1, panels count as 1). Advance Directive: Full Code Anticipated Discharge - Date - 07/03-07/04? - Location - Home with [facility] - Pending the following - urology & ID recs Isrrael Arce MD Division of Hospitalist Medicine Inpatient Medical Services/[facility] Complexity: Acute illness or injury posing a threat to life or body function (HIGH). Risk: Use/consideration of therapy requiring intensive monitoring: parenteral nephrotoxic antibiotics, ex: gentamycin, vancomycin (anaphylaxis, DAGOBERTO/ATN, renal failure); BMP, trough levels (HIGH). Note: the above MDM determinations are made by me for my own use to estimate my end-of-day billing codes. However, documentation is reviewed by professional coders; following their review of documentation, and in accordance with current AMA CPT, CMS, and ACDIS guidelines, the actual billing code(s) may differ from my estimate. UROLOGY PROGRESS NOTE PATIENT NAME: Cade Islas DATE OF : 1945 ADMISSION DATE: 06/30/2023 TODAY'S DATE: 07/02/2023 Subjective No acute events overnight. AF and HDS. He is NPO anticipating procedure later today. He denies any pain. Objective VS: BP 148/84 (BP Location: Right arm, Patient Position: Lying) Pulse 76 Temp 36.7 C (98 F) (Oral) Resp 16 Ht 5' 8 (1.727 m) Wt 200 lb 14.4 oz (91.1 kg) SpO2 98% BMI 30.55 kg/m I & O - 24hr: No intake/output data recorded. No intake/output data recorded. Physical Exam: General: Neck: Resp: Abdomen: male, lying in bed, no acute distress Supple Normal effort, no respiratory distress, on RA Soft, non-tender, nondistended : No suprapubic tenderness, no left or right flank tenderness Skin: Skin color, texture, turgor normal, no rashes or lesions Labs and Imaging Studies Labs: CBC: Lab Results Component Value Date WBC 7.8 07/02/2023 HGB 12.3 (L) 07/02/2023 HCT 38.9 (L) 07/02/2023 MCV 89.6 07/02/2023 PLT 250 07/02/2023 BMP: Lab Results Component Value Date GLUCOSE 102 (H) 07/02/2023 CALCIUM 8.9 07/02/2023 NA 137 07/02/2023 K 3.7 07/02/2023 CO2 22 07/02/2023 CL 107 07/02/2023 BUN 10 07/02/2023 CREATININE 0.80 07/02/2023 PT/INR: Lab Results Component Value Date INR 1.2 (H) 06/30/2023 PROTIME 12.8 (H) 06/30/2023 Imaging Studies: CT abdomen/pelvis 06/29 IMPRESSION: Right pelvic sidewall abscess measuring 9 x 4 x 5 cm. Extensive adjacent inflammatory fat stranding showing contiguous inflammation with thickened bladder wall. Recommend clinical correlation for probable coexisting cystitis. 4 x 4 x 8 cm collection along the left pelvic sidewall with significantly less evidence of inflammation, although suspect this is probably a developing abscess as well. Assessment and Plan ASSESSMENT: 78 y.o. male with bilateral pelvic side wall fluid collections following RALP BPLND 03/2023 PLAN: - labs and imaging reviewed - Cr wnl - WBC 7.8, improved from 11.47 at admission - outside report with bilateral pelvic wall abscesses measuring R: 9 x 4 x 5cm AND L: 4 x 4 x 8cm - no acute urologic surgical intervention at this time - plan for IR drain today, 07/01, w/ IR - hold Xarelto until then - NPO at midnight Sunday night 06/30 - OSH images available in PACs - given BPLND, anticipating fluid collections to be consistent with lymphoceles - agree with IV abx for the time being - remainder of care per primary team - will d/w Dr. Jil Anderson MD PGY-1 Urology 07/02/23 6:21 AM Associated attestation - Babar Ley MD - 07/02/2023 2:31 PM EDT I agree with residents assessment and plan. This patient was seen and examined by me personally. I performed a history and physical examination of the patient and discussed the management with the resident. Images from the original note were not included. [facility] - Infectious Diseases Advanced Practice Provider Progress Note Subjective: Following patient for pelvic abscess. Notes reviewed. Patient reports feeling okay overall. Patient reports he is having some new urinary issues. He reports incontinence, dribbling at baseline since prostate surgery, but describes he now feels like he has more urgency/less resistance when it happens and urinating is uncomfortable. He denies dysuria and any flank pain. Denies fever, chills, CP, SOB, N/V, abdominal pain, and any new bowel changes. No other new exacerbating or alleviating factors. Vitals: Patient Vitals for the past 24 hrs: BP Temp Temp src Pulse Resp SpO2 Weight 07/01/23 0600 140/79 37.2 C (98.9 F) Temporal 82 18 96 % -- 07/01/23 0549 -- -- -- -- -- -- 91.1 kg (200 lb 14.4 oz) 06/30/23 1725 145/85 36.4 C (97.5 F) Temporal 84 20 98 % -- Physical Exam: Physical Exam Vitals and nursing note reviewed. Constitutional: General: He is not in acute distress. Appearance: Normal appearance. He is normal weight. He is ill-appearing. Comments: NAD laying in bed. Interactive, cooperative, conversant HENT: Head: Normocephalic and atraumatic. Right Ear: External ear normal. Left Ear: External ear normal. Nose: Nose normal. Mouth/Throat: Mouth: Mucous membranes are moist. Pharynx: Oropharynx is clear. Eyes: Extraocular Movements: Extraocular movements intact. Conjunctiva/sclera: Conjunctivae normal. Pupils: Pupils are equal, round, and reactive to light. Cardiovascular: Rate and Rhythm: Normal rate and regular rhythm. Pulses: Normal pulses. Heart sounds: Normal heart sounds. Pulmonary: Effort: Pulmonary effort is normal. Breath sounds: Normal breath sounds. No wheezing, rhonchi or rales. Comments: Breathing comfortably on room air. Abdominal: General: Abdomen is flat. Bowel sounds are normal. There is no distension. Palpations: Abdomen is soft. Tenderness: There is no abdominal tenderness. There is no guarding. Comments: Softly distended. Non-tender. No suprapubic/flank tenderness Musculoskeletal: Right lower leg: No edema. Left lower leg: No edema. Skin: General: Skin is warm and dry. Neurological: General: No focal deficit present. Mental Status: He is alert and oriented to person, place, and time. Psychiatric: Mood and Affect: Mood normal. Behavior: Behavior normal. Labs: Recent Labs 06/30/23 0714 06/30/23 1111 07/01/231 NA 133* -- 135 K 4.0 -- 3.6 CL 103 -- 104 CO2 17* -- 23 BUN 14 -- 11 CREATININE 0.79 -- 0.65* GLUCOSE 132* -- 100 CALCIUM 9.3 -- 8.9 PROT 8.2 -- -- BILITOT 0.9 -- -- ALKPHOS 441* -- -- AST 82* -- -- ALT 83* -- -- PROCAL -- 0.14* -- Recent Labs 06/30/23 0714 07/01/231 WBC 11.8* 8.8 HGB 13.7 11.7* HCT 41.8 35.9* PLT 233 217 LYMPHOPCT 7* 7.5* MONOPCT 7 10.4 BASOPCT -- 0.2 NEUTROABS -- 7.1 Micro: No results for input(s): COVID19 in the last 72 hours. 06/29 Blood Cx: In process Lines: PIV Radiography/Echo/Other: N/A Antimicrobials,Start/End Dates: Vancomycin: 06/29- Cipro: 06/29- Impression: Pelvic fluid collection Prostate CA s/p prostatectomy (04/23/23) Hx gangrenous gallbladder s/p cholecystectomy (01/2023) CKD Presence of pacemaker Hypothyroidism GERD Plan: Following patient for concerns of pelvic fluid collections (Imaging from OSH). Blood Cx in process. Recommend CT guided drainage with IR- planning for tomorrow 07/01 dt holding Xarelto. Follow any Cx sent. Patient with new urinary symptoms, order UA/Urine Cx. Plan to continue Vanc (Pharm to dose) and Pip-Tazo for now. ID will continue to follow. Case and plan discussed with Dr. Mcmullen Based on diagnoses and management, combination of acute and chronic problems, exacerbations and/or acuity, this visit should be considered to be of moderate complexity. Carline CHAND PA-C Images from the original note were not included. Hospitalist Progress Note 07/01/2023 Subjective: Admit Date: 06/30/2023 PCP: Nir Le MD Room#: [id number] A Brief Hospital course: Presents from [facility] as transfer 2/2 abnormal labs and pelvic abscess seen on CT(abd,pelvis). Patient states that he had fever and chills for several days prior to presenting to the ED. Notified PCP and states he was placed on oral abx. Took those for couple of days and says he felt better. Saw PCP. Labs drawn and were abnormal so was sent to ED by PCP for further evaluation. In the ED, CT(abd,pelvis) obtained and showed R. Pelvic abscess measuring 9 x 4 x 5cm and extensive adjacent inflammatory fat stranding, there is another fluid collection on L. Pelvic side wall measuring 4 x 4 x 8cm. Transferred to [facility] for further management. Urology and ID consulted. Started on IV abx. Plans for CT guided drainage of abscesses. Interval History: 07/01/2023-No overnight issues or complaints. Some mild vague lower abdominal pain. Case and plan discussed with patient. All questions answered. Past Medical History: Past Medical History: Diagnosis Date Diabetes (HCC) GERD (gastroesophageal reflux disease) History of chronic atrial fibrillation Hyperlipidemia Hypertension Hypothyroidism Pacemaker Thrombocytopenia (HCC) Adult diet Regular NPO diet with enteral medications 24HR INTAKE/OUTPUT: No intake or output data in the 24 hours ending 07/01/23 1016 LABS: CBC: Recent Labs 06/30/2371307/01/23220 WBC 11.8* 8.8 RBC 4.70 4.04* HGB 13.7 11.7* HCT 41.8 35.9* MCV 88.9 88.9 RDW 15.8* 15.6* PLT 233 217 BMP: Recent Labs 06/30/2371307/01/23220 NA 133* 135 K 4.0 3.6 CL 103 104 CO2 17* 23 BUN 14 11 CREATININE 0.79 0.65* GLUCOSE 132* 100 CALCIUM 9.3 8.9 ANIONGAP 13 7 LIVER PROFILE: Recent Labs 06/30/23713 AST 82* ALT 83* BILITOT 0.9 ALKPHOS 441* PROT 8.2 PT/INR: Recent Labs 06/30/23713 PROTIME 12.8* INR 1.2* CARDIAC ENZYMES: No results for input(s): TROPONINI in the last 72 hours. Procalcitonin: Lab Results Component Value Date PROCAL 0.14 (H) 06/30/2023 COVID-19 PCR: No results for input(s): COVID19 in the last 72 hours. Objective: Vitals: BP 140/79 (BP Location: Left arm, Patient Position: Lying) Pulse 82 Temp 37.2 C (98.9 F) (Temporal) Resp 18 Ht 5' 8 (1.727 m) Wt 200 lb 14.4 oz (91.1 kg) SpO2 96% BMI 30.55 kg/m Pulse Ox: SpO2 Av % Min: 96 % Max: 98 % Supplemental O2: Physical Exam Cardiovascular: Rate and Rhythm: Normal rate and regular rhythm. Pulses: Normal pulses. Heart sounds: Normal heart sounds. Pulmonary: Effort: Pulmonary effort is normal. Breath sounds: Normal breath sounds. Abdominal: General: Bowel sounds are normal. Palpations: Abdomen is soft. Medications: Scheduled PRN amitriptyline, 100 mg, Oral, Nightly amLODIPine, 5 mg, Oral, Daily atorvastatin, 10 mg, Oral, Nightly ciprofloxacin, 400 mg, IntraVENous, 2 times per day fluticasone, 1 spray, Each Nostril, Daily gabapentin, 300 mg, Oral, TID insulin lispro, 0-12 Units, SubCUTAneous, TID WC And insulin lispro, 0-12 Units, SubCUTAneous, Nightly levothyroxine, 50 mcg, Oral, qAM AC lisinopril, 40 mg, Oral, Daily [Held by provider] metFORMIN XR, 500 mg, Oral, BID pantoprazole, 40 mg, Oral, qAM AC [Held by provider] rivaroxaban, 20 mg, Oral, Daily with evening meal sodium chloride 0.9%, 5-40 mL, IntraVENous, q12h sotalol, 240 mg, Oral, q12h tamsulosin, 0.4 mg, Oral, Daily vancomycin, 1,250 mg, IntraVENous, q12h PRN medications: acetaminophen OR acetaminophen, dextrose, dextrose, glucagon (rDNA), glucose, hydrALAZINE, HYDROcodone - acetaminophen, naloxone, ondansetron ODT OR ondansetron, polyethylene glycol (PEG) 3350, sodium chloride, sodium chloride 0.9% Continuous sodium chloride, 75 mL/hr, Last Rate: 75 mL/hr (06/30/23 0717) Assessment Data: (CAT1) Reviewed 3 or more notes from different specialty or health system (each=1). (LOW: 2x CAT1 or independent historian MOD: 3x CAT1 or 1x CAT3 EXTENSIVE: 3x CAT1 and 1x CAT3) Acute, acute on chronic, unstable/uncontrolled chronic problems/diagnoses: Multiple pelvic abscesses Prostate CA s/p prostatectomy (04/23/23) Stable chronic problems affecting care, new non-acute diagnoses: CKD stage 2 DM 2 GERD HLD Hypertension Hypothyroidism Afib(on Xarelto) S/p pacemaker Gangrenous gallbladder s/p cholecystectomy (01/2023) Plan As a result of the above findings & factors, the following mgmt was pursued: - IV Cipro and IV vanco per ID, follow Bcs, CT guided drainage pending, continue to hold Xarelto for now and resume after drainage - urology following - am labs, replace lytes prn - PT/OT/CM/SW - delirium precautions: increase activity - DVT prophylaxis: encourage ambulation Complexity: Acute illness or injury posing a threat to life or body function (HIGH). Risk: Prescription drug/IVF/colloid was initiated, discontinued, adjusted; or reviewed with decision to maintain current orders (MOD). Advance Directive: Full Code Anticipated Discharge - Date - 07/04/23? - Location - Home with Home Health Care - Pending the following - abscess drainage, culture results, ID abx recs Total time spent (which include face to face and non face to face encounters) : 50 minutes Extended Emergency Contact Information Primary Emergency Contact: Nicole Islas Address: [facility] Rosalie Sheets [address] of [facility] Mobile Relation: Spouse Michael Keenan DO Division of Hospitalist Medicine Inpatient Medical Services/[facility] documented in this encounter [facility] 07-05-2023 Note Formatting of this n ote is different from the original. Images from the original note were not included. Care Management Progress Note SPOKE WITH PT THIS MORNING, WANTS TO GO HOME TODAY. UNDERSTANDS GOING HOME WITH DRAIN, HAS HAD ONE AT HOME IN PAST. ALSO UNDERSTANDS WAITING FOR ID TO MAKE FINAL ATB DECISIONS. HC LIAISON IS FOLLOWING. ANTICIPATE DISCHARGE TO HOME, WILL CONTINUE TO FOLLOW. Discharge Milestones and Delays Expected Date/Time: 07/06/[address] discharge order Complete med reconciliation Case mgmt discharge readiness Clinical Stability Diagnsotic Workup Expected Discharge History Expected Date/Time Set By Reviewed At 07/06/2023 Ramya Mayorga RN 07/05/2023 8:10 AM 07/04/2023 Ramya Mayorga RN 07/04/2023 8:22 AM 07/04/2023 Ramya Mayorga RN 07/03/2023 7:53 AM 07/04/2023 Ramya Mayorga RN 07/02/2023 7:26 AM 07/02/2023 Jonna Day MD 06/30/2023 6:31 AM Length of Stay (Days): 5 GMLOS: No GMLOS [facility]ed [facility] [place] 07-05-2023 Note Formatting of this n ote is different from the original. Images from the original note were not included. Care Management Progress Note SPOKE WITH PT THIS MORNING, WANTS TO GO HOME TODAY. UNDERSTANDS GOING HOME WITH DRAIN, HAS HAD ONE AT HOME IN PAST. ALSO UNDERSTANDS WAITING FOR ID TO MAKE FINAL ATB DECISIONS. HC LIAISON IS FOLLOWING. ANTICIPATE DISCHARGE TO HOME, WILL CONTINUE TO FOLLOW. Discharge Milestones and Delays Expected Date/Time: 07/06/[address] discharge order Complete med reconciliation Case mgmt discharge readiness Clinical Stability Diagnsotic Workup Expected Discharge History Expected Date/Time Set By Reviewed At 07/06/2023 Ramya Mayorga RN 07/05/2023 8:10 AM 07/04/2023 Ramya Mayorga RN 07/04/2023 8:22 AM 07/04/2023 Ramya Mayorga RN 07/03/2023 7:53 AM 07/04/2023 Ramya Mayorga RN 07/02/2023 7:26 AM 07/02/2023 Jonna Day MD 06/30/2023 6:31 AM Length of Stay (Days): 5 GMLOS: No GMLOS Documented [facility] [place] 07-05-2023 Plan of care note The patient is Moderately Stable - Low risk of patient condition declining or worsening The patient's goals for the shift include Rest pain control. The clinical goals for the shift include continued rest and pain control [facility] [place] 07-04-2023 Plan of care note The patient is Moderately Stable - Low risk of patient condition declining or worsening The patient's goals for the shift include Rest The clinical goals for the shift include goal met T [facility] 07-04-2023 Plan of care note Images from the original note were not included. Urology Plan of Care 78 y.o. male with bilateral pelvic side wall fluid collections following RALP BPLND 03/2023 -s/p R IR drain placement -CT 07/03 demonstrating interval decreased fluid collection but persistent Patient eager to be discharged. From the urology standpoint, we are okay with discharge with a course of bactrim. I have spoken to the ID team who prefer to wait on sensitivities which hopefully results by tomorrow. Recommend discharged with IR drain in place. He will follow up in the office for repeat imaging to assess size prior to removal of IR drain. Please page or call with questions or concerns. SAY CAMERON MD Urology PGY3 07/04/2023 2:32 PM T [facility] 07-04-2023 Note Formatting of this n ote might be different from the original. Spoke with patient's , Nicole, while patient in CT. Explained benefits of home care and the home IVATB process. Nicole is agreeable to the home IVATB process if recommended. Will try back to speak with Cade about HHC. T [facility] 07-04-2023 Note Formatting of this n ote might be different from the original. Spoke with patient's , Nicole, while patient in CT. Explained benefits of home care and the home IVATB process. Nicole is agreeable to the home IVATB process if recommended. Will try back to speak with Cade about HHC. T [facility] 07-04-2023 Note Formatting of this n ote is different from the original. Images from the original note were not included. Care Management Progress Note PT SLEEPING WHEN VISITED THIS MORNING. REMAINS ON IV ZOSYN AND VANC. CT PELVIS AND ABSCESSOGRAM PENDING. ID FOLLOWING. CX + FEW KLEBSIELLA. ANTICIPATE DISCHARGE TO HOME, WILL CONTINUE TO FOLLOW. HC LIAISON ALSO FOLLOWING. Discharge Milestones and Delays Expected Date/Time: 07/04/[address] discharge order Complete med reconciliation Case mgmt discharge readiness Clinical Stability Diagnsotic Workup Expected Discharge History Expected Date/Time Set By Reviewed At 07/04/2023 Ramya Mayorga RN 07/04/2023 8:22 AM 07/04/2023 Ramya Mayorga RN 07/03/2023 7:53 AM 07/04/2023 Ramya Mayorga RN 07/02/2023 7:26 AM 07/02/2023 Jonna Day MD 06/30/2023 6:31 AM Length of Stay (Days): 4 GMLOS: No GMLOS Documented T [facility] 07-04-2023 Note Formatting of this n ote is different from the original. Images from the original note were not included. Care Management Progress Note PT SLEEPING WHEN VISITED THIS MORNING. REMAINS ON IV ZOSYN AND VANC. CT PELVIS AND ABSCESSOGRAM PENDING. ID FOLLOWING. CX + FEW KLEBSIELLA. ANTICIPATE DISCHARGE TO HOME, WILL CONTINUE TO FOLLOW. HC LIAISON ALSO FOLLOWING. Discharge Milestones and Delays Expected Date/Time: 07/04/[address] discharge order Complete med reconciliation Case mgmt discharge readiness Clinical Stability Diagnsotic Workup Expected Discharge History Expected Date/Time Set By Reviewed At 07/04/2023 Ramya Mayorga RN 07/04/2023 8:22 AM 07/04/2023 Ramya Mayorga RN 07/03/2023 7:53 AM 07/04/2023 Ramya Mayorga RN 07/02/2023 7:26 AM 07/02/2023 Jonna Day MD 06/30/2023 6:31 AM Length of Stay (Days): 4 GMLOS: No GMLOS Documented [facility] 07-03-2023 Hospital Discharge instructions Nya Paiz PA-C - 07/03/2023 1:01 PM EDT Drain Discharge Instructions Your Recovery A drain is a tube that is placed into a fluid collection in order to remove that fluid from your body. This may be done for an abscess, hematoma, cyst, or other fluid collection. Over time, the fluid collection will shrink and the drain may be removed by a doctor. The area where the drain was put into your skin may be sore for a few days following the procedure. You may also develop a bruise. This care sheet gives you a general idea about how long it will take for you to recover. However, each person recovers at a different pace. How can you care for yourself at home? Activity - Avoid heavy lifting or strenuous activities while your drain is in place. Diet - You may resume your normal diet. If your stomach is upset, try bland, low-fat food like plain rice, broiled chicken, toast and yogurt. - Drink plenty of fluids. Medications - You may resume your home medications the day after the procedure unless otherwise instructed by your doctor. Care of Drain Site - Keep a bandage over the drain site. It is important to keep the site clean and dry. - You should empty the fluid from the collection bag as needed. This may be emptied into the toilet. Be sure to record the date/time, amount, and appearance of the fluid each time you empty it. This information will be important for your doctor to know to decide when the drain can be removed. - Contact your doctor immediately if: - You notice any signs of infection including fever, increased pain, redness, warmth, discharge or swelling. - You experience bleeding or leaking around your drain site - You have a fast growing, painful lump at the drain site. - The drain becomes dislodged. When should you call for help? - For emergent concerns following your procedure please call 911 or go to the nearest emergency room. - For any non-emergent post-procedure questions or concerns, please give us a call between 8am and 5pm. - [facility] Radiology - [phone] - [facility] Radiology - [phone] - For questions after hours, please call [phone] and ask for the on-call Angiography Radiologist. This handout is intended to provide general educational material to assist you in making informed decisions regarding your medical care. Specific questions about your unique medical conditions should be referred to your primary care physician. documented in this encounter [facility] 07-03-2023 Note Formatting of this n ote is different from the original. Images from the original note were not included. Care Management Progress Note SPOKE WITH PT THIS MORNING, DOING GOOD. REMAINS ON IV ZOSYN AND VANC. IR DRAIN REMAINS IN PLACE. BC AND URINE CX NEGATIVE, DRAIN CX + GRAM + COCCI AND BACILLI, GRAM -BACILLI. ANTICIPATE DISCHARGE TO HOME, WILL CONTINUE TO FOLLOW. Discharge Milestones and Delays Expected Date/Time: 07/04/[address] discharge order Complete med reconciliation Case mgmt discharge readiness Clinical Stability Diagnsotic Workup Expected Discharge History Expected Date/Time Set By Reviewed At 07/04/2023 Ramya Mayorga RN 07/03/2023 7:53 AM 07/04/2023 Ramya Mayorga RN 07/02/2023 7:26 AM 07/02/2023 Jonna Day MD 06/30/2023 6:31 AM Length of Stay (Days): 3 GMLOS: No GMLOS Documented [facility] 07-03-2023 Note Formatting of this n ote is different from the original. Images from the original note were not included. Care Management Progress Note SPOKE WITH PT THIS MORNING, DOING GOOD. REMAINS ON IV ZOSYN AND VANC. IR DRAIN REMAINS IN PLACE. BC AND URINE CX NEGATIVE, DRAIN CX + GRAM + COCCI AND BACILLI, GRAM -BACILLI. ANTICIPATE DISCHARGE TO HOME, WILL CONTINUE TO FOLLOW. Discharge Milestones and Delays Expected Date/Time: 07/04/[address] discharge order Complete med reconciliation Case mgmt discharge readiness Clinical Stability Diagnsotic Workup Expected Discharge History Expected Date/Time Set By Reviewed At 07/04/2023 Ramya Mayorga RN 07/03/2023 7:53 AM 07/04/2023 Ramya Mayorga RN 07/02/2023 7:26 AM 07/02/2023 Jonna Day MD 06/30/2023 6:31 AM Length of Stay (Days): 3 GMLOS: No GMLOS Documented [facility] 07-02-2023 Note Formatting of this n ote might be different from the original. Care Managment Initial Assessment Date: 07/02/2023 Patient Name: Cade Islas : 1945 Patient Information Source of Information: Patient Cognition/Language: WFL - Within Functional Limits Permission given to speak with patient associate financial representative/caregiver as indicated: Yes Confirmation of Payer with patient/family: Yes Payer Name: [facility] : No Confirmation of Primary Care Physician: Confirmed PCP Name: DR GALLARDO Seen in last 2 years?: Yes Primary Caregiver: Self If assistance needed, confirmed caregiver ready, willing and able to care for patient at discharge: Confirmed with: Living Arrangements Current Residence: Private Residence Number of Floors 2 Number of Entry Steps: Bed/Bath Levels: Separate floors Facility: Facility Name: Plan to Return: Lives with: Spouse/significant other Support Systems: Spouse/significant other Activities of Daily Living Ambulation: Independent Bathing/Dressing: Independent Elimination/Continence/Toileting: Independent Feeding: Independent Who Assists with Activities of Daily Living: Instrumental Activities of Daily Living Prescription Coverage: Yes Pharmacy Used: Medication Management: Independent Transportation/Shopping: Independent Transportation Mode: Car Needs Assistance with Transportation at Discharge: No Meal Preparation: Independent Laundry/Cleaning: Independent Finances/Bill Paying: Independent Communication: Independent Types of Care Services/Equipment Utilized Care Services: (NA) Dialysis Type: NA Durable Medical Equipment: (NA) Patient's Goal/Discharge Plan Patient expects to be discharged to: HOME Discharge Planning Actions: Continue to follow Patient's Choice Rights and [employer] and Collaborative Relationships Disclosed as Indicated for Post-Acute Care: Interdisciplinary Team Engagement: Social Work Referral for: Additional Information: SPOKE WITH PT AND AT BEDSIDE. INTRODUCED SELF AND EXPLAINED ROLE. PT HERE WITH PELVIC ABSCESS, S/P PROSTECTOMY. HAD DRAIN PLACED IN IR THIS MORNING. CURRENTLY ON IV ZOSYN, IV VANC, IV FLUIDS. ID AND UROLOGY FOLLOWING. ANTICIPATE DISCHARGE TO HOME, WILL CONTINUE TO FOLLOW. Ramya Mayorga RN [facility] 07-02-2023 Note Formatting of this n ote might be different from the original. Care Managment Initial Assessment Date: 07/02/2023 Patient Name: Cade Islas : 1945 Patient Information Source of Information: Patient Cognition/Language: WFL - Within Functional Limits Permission given to speak with patient associate financial representative/caregiver as indicated: Yes Confirmation of Payer with patient/family: Yes Payer Name: [facility] : No Confirmation of Primary Care Physician: Confirmed PCP Name: DR GALLARDO Seen in last 2 years?: Yes Primary Caregiver: Self If assistance needed, confirmed caregiver ready, willing and able to care for patient at discharge: Confirmed with: Living Arrangements Current Residence: Private Residence Number of Floors 2 Number of Entry Steps: Bed/Bath Levels: Separate floors Facility: Facility Name: Plan to Return: Lives with: Spouse/significant other Support Systems: Spouse/significant other Activities of Daily Living Ambulation: Independent Bathing/Dressing: Independent Elimination/Continence/Toileting: Independent Feeding: Independent Who Assists with Activities of Daily Living: Instrumental Activities of Daily Living Prescription Coverage: Yes Pharmacy Used: Medication Management: Independent Transportation/Shopping: Independent Transportation Mode: Car Needs Assistance with Transportation at Discharge: No Meal Preparation: Independent Laundry/Cleaning: Independent Finances/Bill Paying: Independent Communication: Independent Types of Care Services/Equipment Utilized Care Services: (NA) Dialysis Type: NA Durable Medical Equipment: (NA) Patient's Goal/Discharge Plan Patient expects to be discharged to: HOME Discharge Planning Actions: Continue to follow Patient's Choice Rights and [employer] and Collaborative Relationships Disclosed as Indicated for Post-Acute Care: Interdisciplinary Team Engagement: Social Work Referral for: Additional Information: SPOKE WITH PT AND AT BEDSIDE. INTRODUCED SELF AND EXPLAINED ROLE. PT HERE WITH PELVIC ABSCESS, S/P PROSTECTOMY. HAD DRAIN PLACED IN IR THIS MORNING. CURRENTLY ON IV ZOSYN, IV VANC, IV FLUIDS. ID AND UROLOGY FOLLOWING. ANTICIPATE DISCHARGE TO HOME, WILL CONTINUE TO FOLLOW. Ramya Mayorga, RN [facility] [place] 07-02-2023 Note Formatting of this n ote might be different from the original. Pt discussed in rounds. Reviewed chart. Pt has [facility] Medicare insurance. Met with pt, at bedside. Introduced self and role. Shared with pt, and information in [employer] Medicare benefits of [employer] ( 40 hours of in-home help with light cleaning, laundry, errands, companionship) as well as Meal delivery of meals after a hospital discharge ( 1 per year) . Provided flyer on both benefits. No other SW needs. . [facility] 07-02-2023 Note Formatting of this n ote might be different from the original. Pt discussed in rounds. Reviewed chart. Pt has [facility] Medicare insurance. Met with pt, at bedside. Introduced self and role. Shared with pt, and information in [employer] Medicare benefits of [employer] ( 40 hours of in-home help with light cleaning, laundry, errands, companionship) as well as Meal delivery of meals after a hospital discharge ( 1 per year) . Provided flyer on both benefits. No other SW needs. . [facility] 07-02-2023 Note Formatting of this n ote might be different from the original. Patient arrived to CT department from for pelvic drain placement. Dr. Albright in to discuss procedure with patient and informed consent obtained. Patient assisted to CT table and placed supine. finishing machine operator on. 8F drain placed. Specimen collected and sentfor culture. Stay fix and Tegaderm placed. Patient tolerated procedure well. Report called to Eloy BA and patient transferred to . T [facility] 07-02-2023 Note Formatting of this n ote might be different from the original. Patient arrived to CT department from for pelvic drain placement. Dr. Albright in to discuss procedure with patient and informed consent obtained. Patient assisted to CT table and placed supine. finishing machine operator on. 8F drain placed. Specimen collected and sentfor culture. Stay fix and Tegaderm placed. Patient tolerated procedure well. Report called to Eloy BA and patient transferred to . T [facility] 07-01-2023 Plan of care note Images from the original note were not included. Urology Plan of Care Chart reviewed. Labs and vitals stable. Release of records faxed to [facility] yesterday in order to obtain imaging. Discussed with IR. Given Javier, plan for IR drain placement 07/01. Patient made NPOpMN. Trudy Abdi MD Urology PGY-4 07/01/2023 6:10 AM Page premium cancellation clerk resident with questions [facility] [place] Work Phone: 06-30-2023 Nurse Note Secure chat sent to attending re continuing home meds as well as norco preference for pain awaiting response [facility] [place] 06-30-2023 Consult note Formatting of th is note is different from the original. Images from the original note were not included. Pharmacy Managed Vancomycin Dosing Service Consult Note Consult Date: 06/30/23 Patient Name: Cade Islas Allergies: Patient has no known allergies. Age: 78 y.o. Sex: male Ht: Height: 172.7 cm (5' 8) TBW: Weight: 93.4 kg (206 lb) BMI: Body mass index is 31.32 kg/m . DW: 93.4kg Lab Results Component Value Date CREATININE 0.79 06/30/2023 CREATININE 1.18 04/26/2023 BUN 14 06/30/2023 BUN 26 (H) 04/26/2023 WBC 11.8 (H) 06/30/2023 WBC 5.8 04/26/2023 Calculated CrCl: 100ml/min Consulted By: Carline GARCIA (ID) Infectious Diagnosis: Intra-abdominal infection (AUC Goal 400-600 mg/L*hr) Antimicrobials: Ordered Cipro 400mg bid and Vancomycin 1250mg q12hrs Assessment/Plan: Start Vancomycin 2000 mg 1 to load then 1250mg Q 12 hours based on patient age, weight, renal function, and infectious diagnosis (13 mg/kg), predicted AUC 551 to 613 mg/L*hr. Will assess a level on 07/01/23 at noon and adjust as appropriate. Trend serum creatinine. Orders placed. Thank you for this consult. Please page/call with questions. Date: 06/30/23 Time: 2:07 PM Sudha Garg RPh (available on [address]) T [facility] 06-30-2023 Consult note Formatting of th is note is different from the original. Images from the original note were not included. Pharmacy Managed Vancomycin Dosing Service Consult Note Consult Date: 06/30/23 Patient Name: Cade Islas Allergies: Patient has no known allergies. Age: 78 y.o. Sex: male Ht: Height: 172.7 cm (5' 8) TBW: Weight: 93.4 kg (206 lb) BMI: Body mass index is 31.32 kg/m . DW: 93.4kg Lab Results Component Value Date CREATININE 0.79 06/30/2023 CREATININE 1.18 04/26/2023 BUN 14 06/30/2023 BUN 26 (H) 04/26/2023 WBC 11.8 (H) 06/30/2023 WBC 5.8 04/26/2023 Calculated CrCl: 100ml/min Consulted By: Carline GARCIA (ID) Infectious Diagnosis: Intra-abdominal infection (AUC Goal 400-600 mg/L*hr) Antimicrobials: Ordered Cipro 400mg bid and Vancomycin 1250mg q12hrs Assessment/Plan: Start Vancomycin 2000 mg 1 to load then 1250mg Q 12 hours based on patient age, weight, renal function, and infectious diagnosis (13 mg/kg), predicted AUC 551 to 613 mg/L*hr. Will assess a level on 07/01/23 at noon and adjust as appropriate. Trend serum creatinine. Orders placed. Thank you for this consult. Please page/call with questions. Date: 06/30/23 Time: 2:07 PM Sudha Garg RPh (available on [address]) Associated Order(s): IP CONSULT TO UROLOGY Urology Inpatient Consultation 06/30/2023 HISTORY OF PRESENT ILLNESS: The patient is a 78 y.o. male with past medical history significant for HTN, HLD, hypothydroidism, and prostate Ca (s/p RALP BPLND 03/2023) who is here . According to the patient, he thought he had the flu and had a fever on and off for 7 days with a Tmax of 101. He thought it was resolving until he went to see his PCP and lab workup showed signs concerning for hepatic issues. A CT scan was obtained at that time for further investigation which showed pelvic abscesses. Subsequently, he was sent to [facility] for further care and management. The patient denies nausea, vomiting, shortness of breath, hematuria, left or right flank pain, or suprapubic discomfort. On evaluation, they are AF and HDS. Labs are outlined below. A CT abdomen pelvis was collected which shows R. Pelvic abscess measuring 9 x 4 x 5cm and extensive adjacent inflammatory fat stranding, there is another fluid collection on L. Pelvic side wall measuring 4 x 4 x 8cm. Urology consulted for evaluation and management. ED/Hospital workup Cr 0.91 WBC 11.47 HGB 13.3 UA (p) Ucx (p) Thinners - Xarelto PAST MEDICAL HISTORY: Past Medical History: Diagnosis Date Diabetes (HCC) GERD (gastroesophageal reflux disease) History of chronic atrial fibrillation Hyperlipidemia Hypertension Hypothyroidism Pacemaker Thrombocytopenia (HCC) PAST SURGICAL HISTORY: Past Surgical History: Procedure Laterality Date ATRIAL CARDIAC PACEMAKER INSERTION CHOLECYSTECTOMY PACEMAKER (HISTORICAL) SPINAL CORD STIMULATOR IMPLANT ALLERGIES: No Known Allergies HOME MEDICATIONS: Medications Prior to Admission Medication Sig Dispense Refill Last Dose amitriptyline (Elavil) 100 MG tablet Take 100 mg by mouth Nightly. 06/29/2023 amLODIPine (Norvasc) 5 MG tablet 06/29/2023 atorvastatin (Lipitor) 10 MG tablet 06/29/2023 fluticasone (Flonase) 50 MCG/ACT nasal spray Past Week gabapentin (Neurontin) 600 MG tablet Take 600 mg by mouth 3 times daily. 06/29/2023 HYDROcodone-acetaminophen ([place]) 7.5-325 MG tablet 06/29/2023 levothyroxine (Synthroid, Levoxyl) 50 MCG tablet 06/29/2023 lisinopril 40 MG tablet 06/29/2023 metFORMIN XR (Glucophage-XR) 500 MG 24 hr tablet Take 500 mg by mouth 2 times daily. 06/29/2023 omeprazole (PriLOSEC) [address] capsule 06/29/2023 potassium chloride ER (Micro-K) 10 MEQ ER capsule 06/29/2023 Semaglutide, 2 MG/DOSE, (Ozempic, 2 MG/DOSE,) 8 MG/3ML solution pen-injector Inject under the skin. 06/29/2023 sotalol (Betapace) 240 MG tablet every 12 hours. 06/29/2023 tamsulosin (Flomax) 0.4 MG 24 hr capsule 06/29/2023 Xarelto 20 MG tablet Take 20 mg by mouth 1 (one) time each day. 06/29/2023 Vascepa 1 g capsule More than a month FAMILY HISTORY: No family history on file. Social History: Social History Tobacco Use Smoking Status Never Smokeless Tobacco Never Social History Substance and Sexual Activity Alcohol Use Not Currently Comment: occ ROS: Constitutional: negative for chills and fevers HEENT: no blurry vision or eye redness Respiratory: negative for hemoptysis and shortness of breath Cardiovascular: negative for dyspnea and syncope Gastrointestinal: negative for jaundice, nausea and vomiting Genitourinary: see HPI Hematologic/lymphatic: negative for bleeding Integumentary: no new bruises or lesions Musculoskeletal:negative for muscle weakness Neurological: negative for coordination problems and seizures All other systems negative PHYSICAL EXAM: VITALS: Vitals: 06/30/23 0604 06/30/23605 BP: 152/82 152/82 BP Location: Right arm Patient Position: Sitting Pulse: 74 74 Resp: 16 Temp: 36.5 C (97.7 F) TempSrc: Temporal SpO2: 98% Weight: 206 lb (93.4 kg) Height: 5' 8 (1.727 m) Physical Exam Constitutional: General: He is not in acute distress. Appearance: He is normal weight. He is not ill-appearing or toxic-appearing. HENT: Head: Normocephalic and atraumatic. Eyes: General: No scleral icterus. Right eye: No discharge. Left eye: No discharge. Conjunctiva/sclera: Conjunctivae normal. Cardiovascular: Rate and Rhythm: Normal rate and regular rhythm. Pulses: Normal pulses. Pulmonary: Effort: Pulmonary effort is normal. No respiratory distress. Abdominal: General: There is no distension. Palpations: Abdomen is soft. Tenderness: There is no abdominal tenderness. There is no right CVA tenderness, left CVA tenderness or guarding. Genitourinary: Comments: deferred Musculoskeletal: General: No swelling or deformity. Right lower leg: No edema. Left lower leg: No edema. Skin: General: Skin is warm. Capillary Refill: Capillary refill takes less than 2 seconds. Coloration: Skin is not jaundiced. Findings: No bruising or lesion. Neurological: General: No focal deficit present. Mental Status: He is alert. Mental status is at baseline. Psychiatric: Mood and Affect: Mood normal. Behavior: Behavior normal. DATA: LABS: BMP: Lab Results Component Value Date NA 133 (L) 06/30/2023 K 4.0 06/30/2023 CL 103 06/30/2023 CO2 17 (L) 06/30/2023 BUN 14 06/30/2023 CREATININE 0.79 06/30/2023 CALCIUM 9.3 06/30/2023 GLUCOSE 132 (H) 06/30/2023 CBC: Lab Results Component Value Date WBC 11.8 (H) 06/30/2023 HGB 13.7 06/30/2023 HCT 41.8 06/30/2023 MCV 88.9 06/30/2023 PLT 233 06/30/2023 Urinalysis: No results found for: UA Urine Culture: No components found for: UCX RADIOLOGY: CT abdomen/pelvis 06/29 IMPRESSION: 78 y.o. male with bilateral pelvic side wall abscesses following RALP BPLND 03/2023 PLAN: - labs and imaging reviewed - Cr wnl - mild leukocytosis to 11.8 - outside report with bilateral pelvic wall abscesses measuring R: 9 x 4 x 5cm AND L: 4 x 4 x 8cm - no acute urologic surgical intervention at this time - discussed with team, plan for IR drain; however patient is on Xarelto - discussed w/ IR --> will likely be Sunday - hold Xarelto until then - NPO at midnight Sunday night 06/30 - will attempt to transfer images over to PACs from outside facility - given BPLND, anticipating fluid collections to be consistent with lymphoceles - agree with IV abx for the time being - remainder of care per primary team - urology will continue to follow peripherally - plan of care d/w Dr. Munroe Thank you for allowing me to participate in the care of your patient Lincoln Anderson MD PGY-1 Urology 06/30/23 1:28 PM The admission history and physical has been reviewed. The pertinent findings from the history of present illness, past medical history, family history, social history, review of systems, and physical exams have been noted and confirmed and are unchanged. In addition , I have reviewed the laboratory and radiographic records. I will include the pertinent findings in my written notes Seen and independently evaluated by me. This would be a very unusual presentation for such a large pelvic abscess, and would be very unusual for him to have a white count of only 11,000. However, it would not be an unusual presentation of a pelvic lymphocele (as a aftereffect of pelvic lymphadenectomy). We do not have access to the actual CT images, but are making arrangements to get those. Case has been discussed with Interventional Radiology Discussed with the urology resident. I concur with the assessment and plan. Osmar Farnsworth M.D. 06/30/2023 documented in this encounter [facility] 06-30-2023 Consult note Associated Order (s): IP CONSULT TO UROLOGY Urology Inpatient Consultation 06/30/2023 HISTORY OF PRESENT ILLNESS: The patient is a 78 y.o. male with past medical history significant for HTN, HLD, hypothydroidism, and prostate Ca (s/p RALP BPLND 03/2023) who is here . According to the patient, he thought he had the flu and had a fever on and off for 7 days with a Tmax of 101. He thought it was resolving until he went to see his PCP and lab workup showed signs concerning for hepatic issues. A CT scan was obtained at that time for further investigation which showed pelvic abscesses. Subsequently, he was sent to [facility] for further care and management. The patient denies nausea, vomiting, shortness of breath, hematuria, left or right flank pain, or suprapubic discomfort. On evaluation, they are AF and HDS. Labs are outlined below. A CT abdomen pelvis was collected which shows R. Pelvic abscess measuring 9 x 4 x 5cm and extensive adjacent inflammatory fat stranding, there is another fluid collection on L. Pelvic side wall measuring 4 x 4 x 8cm. Urology consulted for evaluation and management. ED/Hospital workup Cr 0.91 WBC 11.47 HGB 13.3 UA (p) Ucx (p) Thinners - Xarelto PAST MEDICAL HISTORY: Past Medical History: Diagnosis Date Diabetes (HCC) GERD (gastroesophageal reflux disease) History of chronic atrial fibrillation Hyperlipidemia Hypertension Hypothyroidism Pacemaker Thrombocytopenia (HCC) PAST SURGICAL HISTORY: Past Surgical History: Procedure Laterality Date ATRIAL CARDIAC PACEMAKER INSERTION CHOLECYSTECTOMY PACEMAKER (HISTORICAL) SPINAL CORD STIMULATOR IMPLANT ALLERGIES: No Known Allergies HOME MEDICATIONS: Medications Prior to Admission Medication Sig Dispense Refill Last Dose amitriptyline (Elavil) 100 MG tablet Take 100 mg by mouth Nightly. 06/29/2023 amLODIPine (Norvasc) 5 MG tablet 06/29/2023 atorvastatin (Lipitor) 10 MG tablet 06/29/2023 fluticasone (Flonase) 50 MCG/ACT nasal spray Past Week gabapentin (Neurontin) 600 MG tablet Take 600 mg by mouth 3 times daily. 06/29/2023 HYDROcodone-acetaminophen ([place]) 7.5-325 MG tablet 06/29/2023 levothyroxine (Synthroid, Levoxyl) 50 MCG tablet 06/29/2023 lisinopril 40 MG tablet 06/29/2023 metFORMIN XR (Glucophage-XR) 500 MG 24 hr tablet Take 500 mg by mouth 2 times daily. 06/29/2023 omeprazole (PriLOSEC) [address] capsule 06/29/2023 potassium chloride ER (Micro-K) 10 MEQ ER capsule 06/29/2023 Semaglutide, 2 MG/DOSE, (Ozempic, 2 MG/DOSE,) 8 MG/3ML solution pen-injector Inject under the skin. 06/29/2023 sotalol (Betapace) 240 MG tablet every 12 hours. 06/29/2023 tamsulosin (Flomax) 0.4 MG 24 hr capsule 06/29/2023 Xarelto 20 MG tablet Take 20 mg by mouth 1 (one) time each day. 06/29/2023 Vascepa 1 g capsule More than a month FAMILY HISTORY: No family history on file. Social History: Social History Tobacco Use Smoking Status Never Smokeless Tobacco Never Social History Substance and Sexual Activity Alcohol Use Not Currently Comment: occ ROS: Constitutional: negative for chills and fevers HEENT: no blurry vision or eye redness Respiratory: negative for hemoptysis and shortness of breath Cardiovascular: negative for dyspnea and syncope Gastrointestinal: negative for jaundice, nausea and vomiting Genitourinary: see HPI Hematologic/lymphatic: negative for bleeding Integumentary: no new bruises or lesions Musculoskeletal:negative for muscle weakness Neurological: negative for coordination problems and seizures All other systems negative PHYSICAL EXAM: VITALS: Vitals: 06/30/23 0604 06/30/23 0606 BP: 152/82 152/82 BP Location: Right arm Patient Position: Sitting Pulse: 74 74 Resp: 16 Temp: 36.5 C (97.7 F) TempSrc: Temporal SpO2: 98% Weight: 206 lb (93.4 kg) Height: 5' 8 (1.727 m) Physical Exam Constitutional: General: He is not in acute distress. Appearance: He is normal weight. He is not ill-appearing or toxic-appearing. HENT: Head: Normocephalic and atraumatic. Eyes: General: No scleral icterus. Right eye: No discharge. Left eye: No discharge. Conjunctiva/sclera: Conjunctivae normal. Cardiovascular: Rate and Rhythm: Normal rate and regular rhythm. Pulses: Normal pulses. Pulmonary: Effort: Pulmonary effort is normal. No respiratory distress. Abdominal: General: There is no distension. Palpations: Abdomen is soft. Tenderness: There is no abdominal tenderness. There is no right CVA tenderness, left CVA tenderness or guarding. Genitourinary: Comments: deferred Musculoskeletal: General: No swelling or deformity. Right lower leg: No edema. Left lower leg: No edema. Skin: General: Skin is warm. Capillary Refill: Capillary refill takes less than 2 seconds. Coloration: Skin is not jaundiced. Findings: No bruising or lesion. Neurological: General: No focal deficit present. Mental Status: He is alert. Mental status is at baseline. Psychiatric: Mood and Affect: Mood normal. Behavior: Behavior normal. DATA: LABS: BMP: Lab Results Component Value Date NA 133 (L) 06/30/2023 K 4.0 06/30/2023 CL 103 06/30/2023 CO2 17 (L) 06/30/2023 BUN 14 06/30/2023 CREATININE 0.79 06/30/2023 CALCIUM 9.3 06/30/2023 GLUCOSE 132 (H) 06/30/2023 CBC: Lab Results Component Value Date WBC 11.8 (H) 06/30/2023 HGB 13.7 06/30/2023 HCT 41.8 06/30/2023 MCV 88.9 06/30/2023 PLT 233 06/30/2023 Urinalysis: No results found for: UA Urine Culture: No components found for: UCX RADIOLOGY: CT abdomen/pelvis 06/29 IMPRESSION: 78 y.o. male with bilateral pelvic side wall abscesses following RALP BPLND 03/2023 PLAN: - labs and imaging reviewed - Cr wnl - mild leukocytosis to 11.8 - outside report with bilateral pelvic wall abscesses measuring R: 9 x 4 x 5cm AND L: 4 x 4 x 8cm - no acute urologic surgical intervention at this time - discussed with team, plan for IR drain; however patient is on Xarelto - discussed w/ IR --> will likely be Sunday - hold Xarelto until then - NPO at midnight Sunday night 06/30 - will attempt to transfer images over to PACs from outside facility - given BPLND, anticipating fluid collections to be consistent with lymphoceles - agree with IV abx for the time being - remainder of care per primary team - urology will continue to follow peripherally - plan of care d/w Dr. Munroe Thank you for allowing me to participate in the care of your patient Lincoln Anderson MD PGY-1 Urology 06/30/23 1:28 PM The admission history and physical has been reviewed. The pertinent findings from the history of present illness, past medical history, family history, social history, review of systems, and physical exams have been noted and confirmed and are unchanged. In addition , I have reviewed the laboratory and radiographic records. I will include the pertinent findings in my written notes Seen and independently evaluated by me. This would be a very unusual presentation for such a large pelvic abscess, and would be very unusual for him to have a white count of only 11,000. However, it would not be an unusual presentation of a pelvic lymphocele (as a aftereffect of pelvic lymphadenectomy). We do not have access to the actual CT images, but are making arrangements to get those. Case has been discussed with Interventional Radiology Discussed with the urology resident. I concur with the assessment and plan. Osmar Farnsworth M.D. 06/30/2023 [employer] Phone: 06-30-2023 History and physical note Attending History and Physical Admit Date: 06/30/2023 PCP: Nir Le MD CHIEF COMPLAINT: Abnormal labs Reason for Admission: Pelvic abscess History Obtained From: patient HISTORY OF PRESENT ILLNESS: Presents from [facility] as transfer 2/2 abnormal labs and pelvic abscess seen on CT(abd,pelvis). Patient states that he had fever and chills for several days prior to presenting to the ED. Notified PCP and states he was placed on oral abx. Took those for couple of days and says he felt better. Saw PCP. Labs drawn and were abnormal so was sent to ED by PCP for further evaluation. In the ED, CT(abd,pelvis) obtained and showed R. Pelvic abscess measuring 9 x 4 x 5cm and extensive adjacent inflammatory fat stranding, there is another fluid collection on L. Pelvic side wall measuring 4 x 4 x 8cm. Transferred to [facility] for further management. Urology consulted. Past Medical History: Past Medical History: Diagnosis Date Diabetes (HCC) GERD (gastroesophageal reflux disease) History of chronic atrial fibrillation Hyperlipidemia Hypertension Hypothyroidism Pacemaker Thrombocytopenia (HCC) Past Surgical History: Past Surgical History: Procedure Laterality Date ATRIAL CARDIAC PACEMAKER INSERTION CHOLECYSTECTOMY PACEMAKER (HISTORICAL) SPINAL CORD STIMULATOR IMPLANT Social History: Social History Socioeconomic History Marital status: Spouse name: Not on file Number of children: Not on file Years of education: Not on file Highest education level: Not on file Occupational History Not on file Tobacco Use Smoking status: Never Smokeless tobacco: Never Vaping Use Vaping Use: Never used Substance and Sexual Activity Alcohol use: Not Currently Comment: occ Drug use: Never Sexual activity: Not on file Other Topics Concern Not on file Social History Narrative Not on file Social Determinants of Health Financial Resource Strain: Low Risk (06/30/2023) Overall Financial Resource Strain (CARDIA) Difficulty of Paying Living Expenses: Not hard at all Food Insecurity: No Food Insecurity (06/30/2023) Hunger Vital Sign Worried About Running Out of Food in the Last Year: Never true Ran Out of Food in the Last Year: Never true Transportation Needs: No Transportation Needs (06/30/2023) PRAPARE - Transportation Lack of Transportation (Medical): No Lack of Transportation (Non-Medical): No Physical Activity: Insufficiently Active (06/30/2023) Exercise Vital Sign Days of Exercise per Week: 5 days Minutes of Exercise per Session: 20 min Stress: No Stress Concern Present (06/30/2023) [employer] - Occupational Stress Questionnaire Feeling of Stress : Not at all Social Connections: Unknown (06/30/2023) Social Connection and Isolation Panel [NHANES] Frequency of Communication with Friends and Family: More than three times a week Frequency of Social Gatherings with Friends and Family: More than three times a week Attends [employer] Services: Not on file Active Member of Clubs or Organizations: Yes Attends Club or Organization Meetings: 1 to 4 times per year Marital Status: Intimate Partner Violence: Not At Risk (06/30/2023) Humiliation, Afraid, Rape, and Kick questionnaire Fear of Current or Ex-Partner: No Emotionally Abused: No Physically Abused: No Sexually Abused: No Housing Stability: Low Risk (06/30/2023) Housing Stability Vital Sign Unable to Pay for Housing in the Last Year: No Number of Places Lived in the Last Year: 1 Unstable Housing in the Last Year: No Family History: No family history on file. Medications Prior to Admission: No current facility-administered medications on file prior to encounter. Current Outpatient Medications on File Prior to Encounter Medication Sig Dispense Refill amitriptyline (Elavil) 100 MG tablet Take 100 mg by mouth Nightly. amLODIPine (Norvasc) 5 MG tablet atorvastatin (Lipitor) 10 MG tablet fluticasone (Flonase) 50 MCG/ACT nasal spray gabapentin (Neurontin) 600 MG tablet Take 600 mg by mouth 3 times daily. HYDROcodone-acetaminophen ([place]) 7.5-325 MG tablet levothyroxine (Synthroid, Levoxyl) 50 MCG tablet lisinopril 40 MG tablet metFORMIN XR (Glucophage-XR) 500 MG 24 hr tablet Take 500 mg by mouth 2 times daily. omeprazole (PriLOSEC) [address] capsule potassium chloride ER (Micro-K) 10 MEQ ER capsule Semaglutide, 2 MG/DOSE, (Ozempic, 2 MG/DOSE,) 8 MG/3ML solution pen-injector Inject under the skin. sotalol (Betapace) 240 MG tablet every 12 hours. tamsulosin (Flomax) 0.4 MG 24 hr capsule Xarelto 20 MG tablet Take 20 mg by mouth 1 (one) time each day. Vascepa 1 g capsule Allergies: No Known Allergies REVIEW OF SYSTEMS: Constitutional: Positive for fevers and chills HEENT: Negative for congestion, postnasal drip and sneezing. Eyes: Negative for itching and visual disturbance. Respiratory: Negative for apnea, cough, choking, chest tightness, shortness of breath, wheezing and stridor. Cardiovascular: Negative for chest pain. Gastrointestinal: Negative for nausea, vomiting, abdominal pain, diarrhea and blood in stool. Genitourinary: Negative for dysuria, frequency and flank pain. Musculoskeletal: Negative for myalgias and joint swelling. Skin: Negative for rash. Neurological: Negative for dizziness, tremors, seizures, syncope, facial asymmetry, speech difficulty, weakness, numbness and headaches. Hematological: Negative for adenopathy. Psychiatric/Behavioral: Negative for suicidal ideas, behavioral problems, self-injury and dysphoric mood. Vitals: BP 152/82 (BP Location: Right arm, Patient Position: Sitting) Pulse 74 Temp 36.5 C (97.7 F) (Temporal) Resp 16 SpO2 98% BMI Classification: Obese (BMI 30.0-39.9) Pulse Ox: SpO2 Av % Min: 98 % Max: 98 % Supplemental O2: PHYSICAL EXAM: Physical Exam Cardiovascular: Rate and Rhythm: Normal rate and regular rhythm. Pulses: Normal pulses. Heart sounds: Normal heart sounds. Pulmonary: Effort: Pulmonary effort is normal. Breath sounds: Normal breath sounds. Abdominal: General: Bowel sounds are normal. Palpations: Abdomen is soft. DATA: CBC: Recent Labs 06/30/23713 WBC 11.8* RBC 4.70 HGB 13.7 HCT 41.8 MCV 88.9 RDW 15.8* PLT 233 BMP: Recent Labs 06/30/23713 NA 133* K 4.0 CL 103 CO2 17* BUN 14 CREATININE 0.79 GLUCOSE 132* CALCIUM 9.3 ANIONGAP 13 LIVER PROFILE: Recent Labs 06/30/23713 AST 82* ALT 83* BILITOT 0.9 ALKPHOS 441* PROT 8.2 PT/INR: Recent Labs 06/30/23713 PROTIME 12.8* INR 1.2* CARDIAC ENZYMES: No results for input(s): TROPONINI in the last 72 hours. Procalcitonin: Lab Results Component Value Date PROCAL 0.14 (H) 06/30/2023 Urine Culture: Results for orders placed or performed during the hospital encounter of 04/26/23 Urine culture Specimen: Urine, Clean Catch Result Value Ref Range Urine Culture No growth (<1,000 CFU/mL) COVID-19 PCR: No results for input(s): COVID19 in the last 72 hours. I reviewed: [x] laboratory results [x] radiographic results At the time of today's encounter. Pt was advised of the results. Data: (CAT1) Reviewed 3 or more notes from different specialty or health system (each=1). (LOW: 2x CAT1 or independent historian MOD: 3x CAT1 or 1x CAT3 EXTENSIVE: 3x CAT1 and 1x CAT3) Assessment Discussed management with the ED provider and agree with hospitalization. Acute, acute on chronic, unstable/uncontrolled chronic problems/diagnoses: Multiple pelvic abscesses Prostate CA s/p prostatectomy (04/23/23) Stable chronic problems affecting care, new non-acute diagnoses: CKD stage 2 DM 2 GERD HLD Hypertension Hypothyroidism Afib(on Xarelto) S/p pacemaker Gangrenous gallbladder s/p cholecystectomy (01/2023) Plan As a result of the above findings & factors, the following mgmt was pursued: - obtain Bcs x 2, PCT, ID consult - urology following - restart home meds, will hold Xarelto for likelihood of drainage of abscess - am labs, replace lytes prn - PT/OT/CM/SW - delirium precautions: increase activity - DVT prophylaxis: encourage ambulation Complexity: Acute illness or injury posing a threat to life or body function (HIGH). Risk: Prescription drug/IVF/colloid was initiated, discontinued, adjusted; or reviewed with decision to maintain current orders (MOD). Advance Directive: Full Code Anticipated Discharge - Date - 07/04/23? - Location - Home - Pending the following - ID eval/recs, management of pelvis abscess Total time spent (which include face to face and non face to face encounters) : 65 minutes. Extended Emergency Contact Information Primary Emergency Contact: RoshanNicole Address: [address] [place] [address] Mobile Relation: Spouse Michael Keenan DO Division of Hospitalist Medicine Inpatient Medical Services/[facility] 06-30-2023 History and physical note Attending History and Physical Admit Date: 06/30/2023 PCP: Nir Le MD CHIEF COMPLAINT: Abnormal labs Reason for Admission: Pelvic abscess History Obtained From: patient HISTORY OF PRESENT ILLNESS: Presents from [facility] as transfer 2/2 abnormal labs and pelvic abscess seen on CT(abd,pelvis). Patient states that he had fever and chills for several days prior to presenting to the ED. Notified PCP and states he was placed on oral abx. Took those for couple of days and says he felt better. Saw PCP. Labs drawn and were abnormal so was sent to ED by PCP for further evaluation. In the ED, CT(abd,pelvis) obtained and showed R. Pelvic abscess measuring 9 x 4 x 5cm and extensive adjacent inflammatory fat stranding, there is another fluid collection on L. Pelvic side wall measuring 4 x 4 x 8cm. Transferred to [facility] for further management. Urology consulted. Past Medical History: Past Medical History: Diagnosis Date Diabetes (HCC) GERD (gastroesophageal reflux disease) History of chronic atrial fibrillation Hyperlipidemia Hypertension Hypothyroidism Pacemaker Thrombocytopenia (HCC) Past Surgical History: Past Surgical History: Procedure Laterality Date ATRIAL CARDIAC PACEMAKER INSERTION CHOLECYSTECTOMY PACEMAKER (HISTORICAL) SPINAL CORD STIMULATOR IMPLANT Social History: Social History Socioeconomic History Marital status: Spouse name: Not on file Number of children: Not on file Years of education: Not on file Highest education level: Not on file Occupational History Not on file Tobacco Use Smoking status: Never Smokeless tobacco: Never Vaping Use Vaping Use: Never used Substance and Sexual Activity Alcohol use: Not Currently Comment: occ Drug use: Never Sexual activity: Not on file Other Topics Concern Not on file Social History Narrative Not on file Social Determinants of Health Financial Resource Strain: Low Risk (06/30/2023) Overall Financial Resource Strain (CARDIA) Difficulty of Paying Living Expenses: Not hard at all Food Insecurity: No Food Insecurity (06/30/2023) Hunger Vital Sign Worried About Running Out of Food in the Last Year: Never true Ran Out of Food in the Last Year: Never true Transportation Needs: No Transportation Needs (06/30/2023) PRAPARE - Transportation Lack of Transportation (Medical): No Lack of Transportation (Non-Medical): No Physical Activity: Insufficiently Active (06/30/2023) Exercise Vital Sign Days of Exercise per Week: 5 days Minutes of Exercise per Session: 20 min Stress: No Stress Concern Present (06/30/2023) [employer] - Occupational Stress Questionnaire Feeling of Stress : Not at all Social Connections: Unknown (06/30/2023) Social Connection and Isolation Panel [NHANES] Frequency of Communication with Friends and Family: More than three times a week Frequency of Social Gatherings with Friends and Family: More than three times a week Attends [employer] Services: Not on file Active Member of Clubs or Organizations: Yes Attends Club or Organization Meetings: 1 to 4 times per year Marital Status: Intimate Partner Violence: Not At Risk (06/30/2023) Humiliation, Afraid, Rape, and Kick questionnaire Fear of Current or Ex-Partner: No Emotionally Abused: No Physically Abused: No Sexually Abused: No Housing Stability: Low Risk (06/30/2023) Housing Stability Vital Sign Unable to Pay for Housing in the Last Year: No Number of Places Lived in the Last Year: 1 Unstable Housing in the Last Year: No Family History: No family history on file. Medications Prior to Admission: No current facility-administered medications on file prior to encounter. Current Outpatient Medications on File Prior to Encounter Medication Sig Dispense Refill amitriptyline (Elavil) 100 MG tablet Take 100 mg by mouth Nightly. amLODIPine (Norvasc) 5 MG tablet atorvastatin (Lipitor) 10 MG tablet fluticasone (Flonase) 50 MCG/ACT nasal spray gabapentin (Neurontin) 600 MG tablet Take 600 mg by mouth 3 times daily. HYDROcodone-acetaminophen ([place]) 7.5-325 MG tablet levothyroxine (Synthroid, Levoxyl) 50 MCG tablet lisinopril 40 MG tablet metFORMIN XR (Glucophage-XR) 500 MG 24 hr tablet Take 500 mg by mouth 2 times daily. omeprazole (PriLOSEC) [address] capsule potassium chloride ER (Micro-K) 10 MEQ ER capsule Semaglutide, 2 MG/DOSE, (Ozempic, 2 MG/DOSE,) 8 MG/3ML solution pen-injector Inject under the skin. sotalol (Betapace) 240 MG tablet every 12 hours. tamsulosin (Flomax) 0.4 MG 24 hr capsule Xarelto 20 MG tablet Take 20 mg by mouth 1 (one) time each day. Vascepa 1 g capsule Allergies: No Known Allergies REVIEW OF SYSTEMS: Constitutional: Positive for fevers and chills HEENT: Negative for congestion, postnasal drip and sneezing. Eyes: Negative for itching and visual disturbance. Respiratory: Negative for apnea, cough, choking, chest tightness, shortness of breath, wheezing and stridor. Cardiovascular: Negative for chest pain. Gastrointestinal: Negative for nausea, vomiting, abdominal pain, diarrhea and blood in stool. Genitourinary: Negative for dysuria, frequency and flank pain. Musculoskeletal: Negative for myalgias and joint swelling. Skin: Negative for rash. Neurological: Negative for dizziness, tremors, seizures, syncope, facial asymmetry, speech difficulty, weakness, numbness and headaches. Hematological: Negative for adenopathy. Psychiatric/Behavioral: Negative for suicidal ideas, behavioral problems, self-injury and dysphoric mood. Vitals: BP 152/82 (BP Location: Right arm, Patient Position: Sitting) Pulse 74 Temp 36.5 C (97.7 F) (Temporal) Resp 16 SpO2 98% BMI Classification: Obese (BMI 30.0-39.9) Pulse Ox: SpO2 Av % Min: 98 % Max: 98 % Supplemental O2: PHYSICAL EXAM: Physical Exam Cardiovascular: Rate and Rhythm: Normal rate and regular rhythm. Pulses: Normal pulses. Heart sounds: Normal heart sounds. Pulmonary: Effort: Pulmonary effort is normal. Breath sounds: Normal breath sounds. Abdominal: General: Bowel sounds are normal. Palpations: Abdomen is soft. DATA: CBC: Recent Labs 06/30/23713 WBC 11.8* RBC 4.70 HGB 13.7 HCT 41.8 MCV 88.9 RDW 15.8* PLT 233 BMP: Recent Labs 06/30/23 07 NA 133* K 4.0 CL 103 CO2 17* BUN 14 CREATININE 0.79 GLUCOSE 132* CALCIUM 9.3 ANIONGAP 13 LIVER PROFILE: Recent Labs 06/30/23713 AST 82* ALT 83* BILITOT 0.9 ALKPHOS 441* PROT 8.2 PT/INR: Recent Labs 06/30/23713 PROTIME 12.8* INR 1.2* CARDIAC ENZYMES: No results for input(s): TROPONINI in the last 72 hours. Procalcitonin: Lab Results Component Value Date PROCAL 0.14 (H) 06/30/2023 Urine Culture: Results for orders placed or performed during the hospital encounter of 04/26/23 Urine culture Specimen: Urine, Clean Catch Result Value Ref Range Urine Culture No growth (<1,000 CFU/mL) COVID-19 PCR: No results for input(s): COVID19 in the last 72 hours. I reviewed: [x] laboratory results [x] radiographic results At the time of today's encounter. Pt was advised of the results. Data: (CAT1) Reviewed 3 or more notes from different specialty or health system (each=1). (LOW: 2x CAT1 or independent historian MOD: 3x CAT1 or 1x CAT3 EXTENSIVE: 3x CAT1 and 1x CAT3) Assessment Discussed management with the ED provider and agree with hospitalization. Acute, acute on chronic, unstable/uncontrolled chronic problems/diagnoses: Multiple pelvic abscesses Prostate CA s/p prostatectomy (04/23/23) Stable chronic problems affecting care, new non-acute diagnoses: CKD stage 2 DM 2 GERD HLD Hypertension Hypothyroidism Afib(on Xarelto) S/p pacemaker Gangrenous gallbladder s/p cholecystectomy (01/2023) Plan As a result of the above findings & factors, the following mgmt was pursued: - obtain Bcs x 2, PCT, ID consult - urology following - restart home meds, will hold Xarelto for likelihood of drainage of abscess - am labs, replace lytes prn - PT/OT/CM/SW - delirium precautions: increase activity - DVT prophylaxis: encourage ambulation Complexity: Acute illness or injury posing a threat to life or body function (HIGH). Risk: Prescription drug/IVF/colloid was initiated, discontinued, adjusted; or reviewed with decision to maintain current orders (MOD). Advance Directive: Full Code Anticipated Discharge - Date - 07/04/23? - Location - Home - Pending the following - ID eval/recs, management of pelvis abscess Total time spent (which include face to face and non face to face encounters) : 65 minutes. Extended Emergency Contact Information Primary Emergency Contact: Nicole Islas Address: [address] [place] [address] Mobile Relation: Spouse Michael Keenan DO Division of Hospitalist Medicine [facility]patient Medical Services[facility] documented in this encounter [facility] 06-12-2023 Miscellaneous Notes Will do. Let me know if he still in A-fib next week. Patient went into AFIB June 06 and has not went back into rhythm. He is on Sotalol 240 mg and Xarelto 20 every day. documented in this encounter [facility] 06-04-2023 Note HNO ID: [id number] Author: CHAD DAVIS APRN.CNP Service: ? Author Type: Nurse Practitioner Type: Progress Notes Filed: 06/04/2023 15:56 Note Text: Incidental Lung Nodule Follow Up Concern for New Cancer Diagnosis: No Recommendation: CT Scan Lung Nodule Follow-Up Scheduled: No Pulmonary Follow-Up Type: 6-[address] recommended, but pt prefers to follow up with PCP now. Enrolled in Lung Nodule program: Completed Lung Nodule Program Location: [place] Patient prefers to follow up with PCP now for lung nodules. Message sent to Dr. Le. [facility] 06-04-2023 History of Present illness Narrative Incidental Lung Nodule Follow Up Concern for New Cancer Diagnosis: No Recommendation: CT Scan Lung Nodule Follow-Up Scheduled: No Pulmonary Follow-Up Type: 6-[address] recommended, but pt prefers to follow up with PCP now. Enrolled in Lung Nodule program: Completed Lung Nodule Program Location: [place] Patient prefers to follow up with PCP now for lung nodules. Message sent to Dr. Le. documented in this encounter [facility] 06-04-2023 Miscellaneous Notes Phone call to patient to discuss results of 3-[address] Chest for lung nodules. The nodules were stable and recommend follow up in 6-12 mos. Patient prefers to follow up with PCP now for lung nodules. Message sent to Dr. Le. Chad Davis APRN.CNP documented in this encounter [facility] 06-01-2023 History of Present illness Narrative Summary: CT Radiology Service Progress Note PATIENT NAME: Cade Islas DATE OF SERVICE: June 01, 2023 TIME: 10:20 AM PATIENT IDENTITY VERIFICATION COMPLETED USING TWO (2) IDENTIFIERS: Name and Date of confirmed by patient verbally. FALL SCREENING: Has the patient had 2 falls in the last year or 1 fall with injury or currently using an Ambulatory Assistive Device (Walker, Cane, Wheelchair, Crutches, etc.)? No PATIENT GENDER DATA: Male PATIENT RELEVANT IMPLANT DATA REVIEWED: Not Applicable PATIENT PRESENTS WITH AN IMPLANTABLE OR ATTACHED CSR TECHNICIAN: No RADIOLOGY DEPARTMENT: CT; Exam(s) Completed: Chest PERIPHERAL IV DATA: Not applicable SIGNED BY: RT Jose(R) June 01, 2023 10:20 AM documented in this encounter [facility] 05-14-2023 History of Present illness Narrative EKG Check EKG performed per protocol on [facility] EKG and BP #6 s/p Implant Name and reviewed and verified with patient. Allergies reviewed and verified with patient. Current Outpatient Medications Medication Sig rivaroxaban (XARELTO) 20 mg tablet Take 1 tablet by mouth daily with dinner. sotalol (BETAPACE) 240 mg tablet Take 1 tablet by mouth every 12 hours. omeprazole (PRILOSEC) 20 mg capsule Take 20 mg by mouth every morning. HYDROcodone-Acetaminophen (NORCO) 7.5-325 mg per tablet Take 1 tablet by mouth every 6 hours as needed. Cholecalciferol, Vitamin D3, 125 mcg/mL (5,000 unit/mL) drop Take 5,000 Units by mouth every morning. semaglutide (OZEMPIC) 2 mg/dose (8 mg/3 mL) pen injector Inject 2 mg subcutaneously one time a week. Takes on Wednesdays tamsulosin (FLOMAX) 0.4 mg Take 0.4 mg by mouth two times a day. VITAMIN B COMPLEX ORAL Take 1 tablet by mouth once daily. amitriptyline (ELAVIL) 100 mg tablet Take 100 mg by mouth daily at bedtime. atorvastatin (LIPITOR) 10 mg tablet Take 10 mg by mouth daily at bedtime. fluticasone (FLONASE) 50 mcg/actuation nasal spray Use 1 [place] in each nostril as needed. gabapentin (NEURONTIN) 600 mg tablet Take 600 mg by mouth three times a day. VASCEPA 1 gram capsule Take 2 g by mouth two times a day with meals. levothyroxine (SYNTHROID) 50 mcg tablet Take 50 mcg by mouth daily before breakfast. lisinopril (ZESTRIL) 40 mg tablet Take 40 mg by mouth two times a day. metFORMIN (GLUCOPHAGE) 500 mg tablet Take 1,000 mg by mouth two times a day with meals. potassium chloride SR (MICRO-K) 10 mEq CR capsule Take 10 mEq by mouth every morning. No current facility-administered medications for this visit. Patient is taking medication as prescribed Yes Took medication today Yes Experiencing side effects No Physician notified of EKG readings Yes Louise Chaudhary MA documented in this encounter [facility] 05-10-2023 History of Present illness Narrative Images from the original note were not included. Avtar Babin MD 05/10/2023 at 1:48 PM Office follow up PATIENT NAME: Cade Islas DATE OF : 1945 TODAY'S DATE: 05/10/2023 CHIEF COMPLAINT: Chief Complaint Patient presents with Prostate Cancer Post-op Prostatectomy Subjective: Mr. Islas is a 78 y.o. male who presents to the office for follow up of prostate cancer Doing well after robotic assisted laparoscopic radical prostatectomy and bilateral pelvic lymph node dissection Review of Systems Past Medical History: Past Medical History: Diagnosis Date Diabetes (HCC) GERD (gastroesophageal reflux disease) History of chronic atrial fibrillation Hyperlipidemia Hypertension Hypothyroidism Pacemaker Thrombocytopenia (HCC) Past Surgical History: Past Surgical History: Procedure Laterality Date ATRIAL CARDIAC PACEMAKER INSERTION CHOLECYSTECTOMY PACEMAKER (HISTORICAL) SPINAL CORD STIMULATOR IMPLANT Allergies: Patient has no known allergies. Social History: Social History Socioeconomic History Marital status: Spouse name: Not on file Number of children: Not on file Years of education: Not on file Highest education level: Not on file Occupational History Not on file Tobacco Use Smoking status: Never Smokeless tobacco: Never Vaping Use Vaping Use: Never used Substance and Sexual Activity Alcohol use: Not Currently Comment: occ Drug use: Never Sexual activity: Not on file Other Topics Concern Not on file Social History Narrative Not on file Social Determinants of Health Financial Resource Strain: Not on file Food Insecurity: Not on file Transportation Needs: Not on file Physical Activity: Not on file Stress: Not on file Social Connections: Not on file Intimate Partner Violence: Not on file Housing Stability: Not on file Family History: Medications Prior to Admission medications Medication Sig Start Date End Date Taking? Authorizing Provider amitriptyline (Elavil) 100 MG tablet Take 100 mg by mouth Nightly. 03/02/23 Yes Historical Provider, amLODIPine (Norvasc) 5 MG tablet 10/09/22 Yes Historical Provider, atorvastatin (Lipitor) 10 MG tablet 03/09/23 Yes Historical Provider, fluticasone (Flonase) 50 MCG/ACT nasal spray 08/03/22 Yes Historical Provider, gabapentin (Neurontin) 600 MG tablet Take 600 mg by mouth 3 times daily. 02/19/23 Yes Historical Provider, HYDROcodone-acetaminophen ([place]) 7.5-325 MG tablet 03/02/23 Yes Historical Provider, levothyroxine (Synthroid, Levoxyl) 50 MCG tablet 12/11/22 Yes Historical Provider, lisinopril 40 MG tablet 03/27/23 Yes Historical Provider, metFORMIN XR (Glucophage-XR) 500 MG 24 hr tablet Take 500 mg by mouth 2 times daily. 03/20/23 Yes Historical Provider, omeprazole (PriLOSEC) [address] capsule 03/01/23 Yes Historical Provider, potassium chloride ER (Micro-K) 10 MEQ ER capsule 01/14/23 Yes Historical Provider, Semaglutide, 2 MG/DOSE, (Ozempic, 2 MG/DOSE,) 8 MG/3ML solution pen-injector Inject under the skin. 05/24/22 Yes Historical Provider, sotalol (Betapace) 240 MG tablet every 12 hours. 04/06/23 Yes Historical Provider, tamsulosin (Flomax) 0.4 MG 24 hr capsule 02/16/23 Yes Historical Provider, Vascepa 1 g capsule 12/11/22 Yes Historical Provider, Xarelto 20 MG tablet Take 20 mg by mouth 1 (one) time each day. 11/11/22 Yes Historical Provider, docusate sodium (Colace) 100 MG capsule Take 1 capsule (100 mg) by mouth 2 times daily for 10 days. 04/24/23 05/04/23 Say Cameron MD sulfamethoxazole-trimethoprim (Bactrim DS) 800-160 MG tablet Take 1 tablet by mouth daily for 14 days. 04/24/23 05/08/23 Say Cameron MD Vitals: Ht 5' 8 (1.727 m) Wt 204 lb (92.5 kg) BMI 31.02 kg/m Physical Exam General: alert, appears stated age, and cooperative Abdomen: soft and nondistended Back: straight, CVA tenderness absent : defer exam Labs: WBC Lab Results Component Value Date WBC 5.8 04/26/2023 BMP Lab Results Component Value Date NA 133 (L) 04/26/2023 K 4.1 04/26/2023 CL 103 04/26/2023 CO2 24 04/26/2023 BUN 26 (H) 04/26/2023 CREATININE 1.18 04/26/2023 GLUCOSE 113 (H) 04/26/2023 CALCIUM 9.0 04/26/2023 PSA No results found for: PSA UA Lab Results Component Value Date COLORU Yellow 04/26/2023 GLUCOSEU Normal 04/26/2023 UROBILINOGEN Normal 04/26/2023 Review: A. LYMPH NODE, LEFT PELVIC, BIOPSY: - THREE LYMPH NODES NEGATIVE FOR METASTATIC CARCINOMA (0/3) B. LYMPH NODE, RIGHT PELVIC, BIOPSY: - THREE LYMPH NODES NEGATIVE FOR METASTATIC CARCINOMA (0/3) C. PROSTATE AND SEMINAL VESICLES, PROSTATECTOMY: - PROSTATE ACINAR ADENOCARCINOMA BEAU SCORE 4+5 = 9 (GRADE GROUP 5). - EXTRAPROSTATIC EXTENSION PRESENT. - INTRADUCTAL CARCINOMA PRESENT. - MARGINS OF RESECTION ARE FREE OF INVOLVEMENT. at 2338 Synoptic Checklist PROSTATE GLAND: Radical Prostatectomy 8th Edition - Protocol posted: 02/02/2021 PROSTATE GLAND: RADICAL PROSTATECTOMY - All Specimens SPECIMEN Procedure Radical prostatectomy TUMOR Histologic Type Acinar adenocarcinoma Histologic Grade Grade Grade group 5 (Beau Score 4 + 5 = 9) Percentage of Pattern 4 80 % Percentage of Pattern 5 10 % Intraductal Carcinoma (IDC) Present IDC Incorporated into Grade No Treatment Effect No known presurgical therapy TUMOR QUANTITATION Estimated Percentage of Prostate Involved by Tumor 31 - 40% Extraprostatic Extension (EPE) Present, nonfocal Location of Extraprostatic Extension Right posterior Left posterior Urinary Bladder Neck Invasion Not identified Seminal Vesicle Invasion Not identified Lymphovascular Invasion Not Identified Perineural Invasion Present MARGINS Margin Status All margins negative for invasive carcinoma REGIONAL LYMPH NODES Regional Lymph Node Status All regional lymph nodes negative for tumor Number of Lymph Nodes Examined 6 PATHOLOGIC STAGE CLASSIFICATION (pTNM, AJCC 8th Edition) Reporting of pT, pN, and (when applicable) pM categories is based on information available to the pathologist at the time the report is issued. As per the AJCC (Chapter 1, 8th Ed.) it is the managing physician s responsibility to establish the final pathologic stage based upon all pertinent information, including but potentially not limited to this pathology report. Primary Tumor (pT) pT3a pN Category pN0 ADDITIONAL FINDINGS Additional Findings High-grade prostatic intraepithelial neoplasia (PIN) Nodular prostatic hyperplasia SPECIAL STUDIES Ancillary Studies PIN-4 IHC Testing Performed on Block Number(s) C22, C23 Impression/Plan Diagnoses and all orders for this visit: Prostate cancer (HCC) - [facility] JESSE [place]; Future - PSA, total and free; Future Stress incontinence - PSA, total and free; Future He is doing well after robotic assisted laparoscopic radical prostatectomy and bilateral pelvic lymph node dissection Pathology beau 9, margins negative, lymph nodes negative PSA in 3 mo Kegel exercises Pelvic floor physical therapy Follow up in about 3 months (around 08/08/2023) for psa. Avtar Babin MD 05/10/23 1:48 PM documented in this encounter [facility] 05-01-2023 History of Present illness Narrative Patient's states abdomen still feeling full from surgical gas. Right abdominal incision crusted with dried blood. Patient had paper tape over left abdominal incision; gauze and paper tape on right. (No dried blood on left site.) Cleaned both sites with hibiclens and water. Applied steri-strips to both sites and covered with gauze and paper tape. 18 Fr catheter removed after deflating 20 ml balloon. Patient tolerated well. Patient informed he/she may experience dysuria and/hematuria next 24 hrs due to catheter removal. Instructed pt to call office if blood in urine does not lighten with pushing fluids, any signs of infection and/or any issue with voiding. Patient instructed to go to ER if fever >100.4F/chills develop or unable to void. Pt voiced understanding. Male Kegel Exercises handout reviewed and given to patient. Patient requested more Percocet. Consulted Hugo Mac DNP. Second RX of percocet filled on 04/27/23. Patient instructed to utilize ibuprofen and occasional tylenol (instructed not to exceed recommended daily dosage; instructed to calculate acetaminophen in Percocet). No RX sent to pharm. Associated attestation - Hugo Mac APRN - CNP - 05/01/2023 9:10 AM EST Images from the original note were not included. [address] [facility] [id number] Supervising Provider s Attestation Statement The patient met the criteria for indirect supervision. I discussed the findings and plans with the nurse and agree as documented in their noted. Hugo Mac DNP, [facility] 05/01/2023 at 9:10 AM An electronic signature was used to authenticate this note. documented in this encounter [facility] 04-30-2023 History of Present illness Narrative EKG Check EKG performed per protocol on [facility] EKG and BP #4 s/p Implant Name and reviewed and verified with patient. Allergies reviewed and verified with patient. Current Outpatient Medications Medication Sig oxyCODONE-acetaminophen (PERCOCET) 5-325 mg tablet Take 1 tablet by mouth every 6 hours as needed. sulfamethoxazole-trimethoprim (BACTRIM DS) 800-160 mg per tablet Take 1 tablet by mouth once daily. enoxaparin (LOVENOX) 40 mg/0.4 mL Inject 40 mg subcutaneously once daily. For 7 days docusate sodium (COLACE) 100 mg capsule Take 100 mg by mouth once daily. rivaroxaban (XARELTO) 20 mg tablet Take 1 tablet by mouth daily with dinner. sotalol (BETAPACE) 240 mg tablet Take 1 tablet by mouth every 12 hours. omeprazole (PRILOSEC) 20 mg capsule Take 20 mg by mouth every morning. Cholecalciferol, Vitamin D3, 125 mcg/mL (5,000 unit/mL) drop Take 5,000 Units by mouth every morning. semaglutide (OZEMPIC) 2 mg/dose (8 mg/3 mL) pen injector Inject 2 mg subcutaneously one time a week. Takes on Wednesdays tamsulosin (FLOMAX) 0.4 mg Take 0.4 mg by mouth two times a day. VITAMIN B COMPLEX ORAL Take 1 tablet by mouth once daily. amitriptyline (ELAVIL) 100 mg tablet Take 100 mg by mouth daily at bedtime. atorvastatin (LIPITOR) 10 mg tablet Take 10 mg by mouth daily at bedtime. fluticasone (FLONASE) 50 mcg/actuation nasal spray Use 1 [place] in each nostril as needed. gabapentin (NEURONTIN) 600 mg tablet Take 600 mg by mouth three times a day. VASCEPA 1 gram capsule Take 2 g by mouth two times a day with meals. levothyroxine (SYNTHROID) 50 mcg tablet Take 50 mcg by mouth daily before breakfast. lisinopril (ZESTRIL) 40 mg tablet Take 40 mg by mouth two times a day. metFORMIN (GLUCOPHAGE) 500 mg tablet Take 1,000 mg by mouth two times a day with meals. potassium chloride SR (MICRO-K) 10 mEq CR capsule Take 10 mEq by mouth every morning. HYDROcodone-Acetaminophen (NORCO) 7.5-325 mg per tablet Take 1 tablet by mouth every 6 hours as needed. No current facility-administered medications for this visit. Patient is taking medication as prescribed Yes Took medication today Yes Experiencing side effects No Physician notified of EKG readings Yes Louise Chaudhary MA documented in this encounter [facility] 04-27-2023 Consult note Formatting of th is note is different from the original. Images from the original note were not included. Urology Inpatient Consultation Patient Name: Cade Islas Date of : 1945 Admission Date: 04/26/2023 7:39 PM Today's Date: 04/27/2023 Reason for consultation: penile/scrotal pain and swelling Chief complaint: scrotal swelling HISTORY OF PRESENT ILLNESS: The patient is a 78 y.o. male known to our service for recent robotic radical prostatectomy for prostate cancer on 04/23/23 presents with penile/scrotal pain and swelling that has been going on since POD2. This has gradually worsened and is causing him significant discomfort, so he came to the ER for evaluation. He denies fevers, chills, lightheadedness, flank pain, bladder spasms. The cannon catheter has been draining without issue. He takes xarelto (atrial fibrillation, has pacemaker) but this had been on hold as he has been using his lovenox shots at home. He is not having hematuria and otherwise feels he is healing well. PAST MEDICAL HISTORY: Past Medical History: Diagnosis Date Diabetes (HCC) GERD (gastroesophageal reflux disease) History of chronic atrial fibrillation Hyperlipidemia Hypertension Hypothyroidism Pacemaker Thrombocytopenia (HCC) PAST SURGICAL HISTORY: Past Surgical History: Procedure Laterality Date ATRIAL CARDIAC PACEMAKER INSERTION CHOLECYSTECTOMY PACEMAKER (HISTORICAL) SPINAL CORD STIMULATOR IMPLANT ALLERGIES: Patient has no known allergies. CURRENT MEDICATIONS: No current facility-administered medications for this encounter. Current Outpatient Medications: amitriptyline (Elavil) 100 MG tablet, Take 100 mg by mouth Nightly., Disp: , Rfl: amLODIPine (Norvasc) 5 MG tablet, , Disp: , Rfl: atorvastatin (Lipitor) 10 MG tablet, , Disp: , Rfl: docusate sodium (Colace) 100 MG capsule, Take 1 capsule (100 mg) by mouth 2 times daily for 10 days., Disp: 20 capsule, Rfl: 0 enoxaparin (Lovenox) 40 MG/0.4ML solution prefilled syringe, Inject 0.4 mL (40 mg) under the skin daily for 7 days., Disp: 7 each, Rfl: 0 fluticasone (Flonase) 50 MCG/ACT nasal spray, , Disp: , Rfl: gabapentin (Neurontin) 600 MG tablet, Take 600 mg by mouth 3 times daily., Disp: , Rfl: HYDROcodone-acetaminophen ([place]) 7.5-325 MG tablet, , Disp: , Rfl: levothyroxine (Synthroid, Levoxyl) 50 MCG tablet, , Disp: , Rfl: lisinopril 40 MG tablet, , Disp: , Rfl: metFORMIN XR (Glucophage-XR) 500 MG 24 hr tablet, Take 500 mg by mouth 2 times daily., Disp: , Rfl: omeprazole (PriLOSEC) [address] capsule, , Disp: , Rfl: oxyCODONE-acetaminophen (Percocet) 5-325 MG tablet, Take 1 tablet by mouth every 6 hours as needed for severe pain (7-10) for up to 5 days., Disp: 15 tablet, Rfl: 0 potassium chloride ER (Micro-K) 10 MEQ ER capsule, , Disp: , Rfl: Semaglutide, 2 MG/DOSE, (Ozempic, 2 MG/DOSE,) 8 MG/3ML solution pen-injector, Inject under the skin., Disp: , Rfl: sotalol (Betapace) 240 MG tablet, every 12 hours., Disp: , Rfl: sulfamethoxazole-trimethoprim (Bactrim DS) 800-160 MG tablet, Take 1 tablet by mouth daily for 14 days., Disp: 14 tablet, Rfl: 0 tamsulosin (Flomax) 0.4 MG 24 hr capsule, , Disp: , Rfl: Vascepa 1 g capsule, , Disp: , Rfl: Xarelto 20 MG tablet, Take 20 mg by mouth 1 (one) time each day., Disp: , Rfl: FAMILY HISTORY: No family history on file. Social History: Social History Tobacco Use Smoking status: Never Smokeless tobacco: Never Substance Use Topics Alcohol use: Not Currently Comment: occ ROS: Constitutional: negative for chills and fevers HEENT: no blurry vision or eye redness Respiratory: negative for hemoptysis and shortness of breath Cardiovascular: negative for dyspnea and syncope Gastrointestinal: negative for jaundice, nausea and vomiting Genitourinary:negative for dysuria and hematuria, + penile/scrotal pain and bruising Hematologic/lymphatic: negative for bleeding Integumentary: no new bruises or lesions Musculoskeletal:negative for muscle weakness Neurological: negative for coordination problems and seizures All other systems negative Physical Exam: Vitals: Vitals: 04/26/23 1938 04/26/23 1941 BP: (!) 141/88 Pulse: 60 Resp: 18 Temp: 36.2 C (97.1 F) TempSrc: Temporal Temporal SpO2: 97% General: Alert, in no acute distress Head: Normocephalic, atraumatic Neck: supple, trachea is midline, no obvious masses Respiratory: normal effort Cardiovascular: regular pulse, no extremity edema Musculoskeletal: moving all 4 extremities Skin: warm and dry Psych: normal mood and affect; appropriate judgement and insight Abdomen: soft, non distended, non tender, incisions c/d/I : erythematous and tender uncircumcised phallus. No skin defects or weals present. Scrotum swollen and ecchymotic with bilateral descended and palpable testis normal in size for his age. Ecchymoses scattered across scrotum. Scrotum tender to touch. No necrosis, skin defects, drainage or fluctuance appreciated. DATA: LABS: BMP: Lab Results Component Value Date GLUCOSE 113 (H) 04/26/2023 CALCIUM 9.0 04/26/2023 NA 133 (L) 04/26/2023 K 4.1 04/26/2023 CO2 24 04/26/2023 CL 103 04/26/2023 BUN 26 (H) 04/26/2023 CREATININE 1.18 04/26/2023 CBC: Lab Results Component Value Date WBC 5.8 04/26/2023 HGB 9.4 (L) 04/26/2023 HCT 28.7 (L) 04/26/2023 MCV 83.4 04/26/2023 PLT 121 (L) 04/26/2023 Urinalysis: @LASTUA@ Urine Culture: No components found for: LABURIN RADIOLOGY: CT AP and CIRA 04/26/23 reviewed IMPRESSION: 78 y.o. male with prostate cancer POD4 from robotic radical PLAN: - likely ok for discharge home - labs and imaging reviewed. Labs appear stable. Vitals stable. Imaging shows post-op changes and subcutaneous emphysema likely from insufflation. No acute intervention recommended - maintain cannon catheter until follow up - follow up 05/01/23 as scheduled Thank you for allowing me to participate in the care of your patient HELEN ELISE MD Urology PGY3 04/27/23 2:31 AM - Page premium cancellation clerk resident with questions. [employer] Phone: 04-27-2023 Consult note Formatting of th is note is different from the original. Images from the original note were not included. Urology Inpatient Consultation Patient Name: Cade Islas Date of : 1945 Admission Date: 04/26/2023 7:39 PM Today's Date: 04/27/2023 Reason for consultation: penile/scrotal pain and swelling Chief complaint: scrotal swelling HISTORY OF PRESENT ILLNESS: The patient is a 78 y.o. male known to our service for recent robotic radical prostatectomy for prostate cancer on 04/23/23 presents with penile/scrotal pain and swelling that has been going on since POD2. This has gradually worsened and is causing him significant discomfort, so he came to the ER for evaluation. He denies fevers, chills, lightheadedness, flank pain, bladder spasms. The cannon catheter has been draining without issue. He takes xarelto (atrial fibrillation, has pacemaker) but this had been on hold as he has been using his lovenox shots at home. He is not having hematuria and otherwise feels he is healing well. PAST MEDICAL HISTORY: Past Medical History: Diagnosis Date Diabetes (HCC) GERD (gastroesophageal reflux disease) History of chronic atrial fibrillation Hyperlipidemia Hypertension Hypothyroidism Pacemaker Thrombocytopenia (HCC) PAST SURGICAL HISTORY: Past Surgical History: Procedure Laterality Date ATRIAL CARDIAC PACEMAKER INSERTION CHOLECYSTECTOMY PACEMAKER (HISTORICAL) SPINAL CORD STIMULATOR IMPLANT ALLERGIES: Patient has no known allergies. CURRENT MEDICATIONS: No current facility-administered medications for this encounter. Current Outpatient Medications: amitriptyline (Elavil) 100 MG tablet, Take 100 mg by mouth Nightly., Disp: , Rfl: amLODIPine (Norvasc) 5 MG tablet, , Disp: , Rfl: atorvastatin (Lipitor) 10 MG tablet, , Disp: , Rfl: docusate sodium (Colace) 100 MG capsule, Take 1 capsule (100 mg) by mouth 2 times daily for 10 days., Disp: 20 capsule, Rfl: 0 enoxaparin (Lovenox) 40 MG/0.4ML solution prefilled syringe, Inject 0.4 mL (40 mg) under the skin daily for 7 days., Disp: 7 each, Rfl: 0 fluticasone (Flonase) 50 MCG/ACT nasal spray, , Disp: , Rfl: gabapentin (Neurontin) 600 MG tablet, Take 600 mg by mouth 3 times daily., Disp: , Rfl: HYDROcodone-acetaminophen ([place]) 7.5-325 MG tablet, , Disp: , Rfl: levothyroxine (Synthroid, Levoxyl) 50 MCG tablet, , Disp: , Rfl: lisinopril 40 MG tablet, , Disp: , Rfl: metFORMIN XR (Glucophage-XR) 500 MG 24 hr tablet, Take 500 mg by mouth 2 times daily., Disp: , Rfl: omeprazole (PriLOSEC) [address] capsule, , Disp: , Rfl: oxyCODONE-acetaminophen (Percocet) 5-325 MG tablet, Take 1 tablet by mouth every 6 hours as needed for severe pain (7-10) for up to 5 days., Disp: 15 tablet, Rfl: 0 potassium chloride ER (Micro-K) 10 MEQ ER capsule, , Disp: , Rfl: Semaglutide, 2 MG/DOSE, (Ozempic, 2 MG/DOSE,) 8 MG/3ML solution pen-injector, Inject under the skin., Disp: , Rfl: sotalol (Betapace) 240 MG tablet, every 12 hours., Disp: , Rfl: sulfamethoxazole-trimethoprim (Bactrim DS) 800-160 MG tablet, Take 1 tablet by mouth daily for 14 days., Disp: 14 tablet, Rfl: 0 tamsulosin (Flomax) 0.4 MG 24 hr capsule, , Disp: , Rfl: Vascepa 1 g capsule, , Disp: , Rfl: Xarelto 20 MG tablet, Take 20 mg by mouth 1 (one) time each day., Disp: , Rfl: FAMILY HISTORY: No family history on file. Social History: Social History Tobacco Use Smoking status: Never Smokeless tobacco: Never Substance Use Topics Alcohol use: Not Currently Comment: occ ROS: Constitutional: negative for chills and fevers HEENT: no blurry vision or eye redness Respiratory: negative for hemoptysis and shortness of breath Cardiovascular: negative for dyspnea and syncope Gastrointestinal: negative for jaundice, nausea and vomiting Genitourinary:negative for dysuria and hematuria, + penile/scrotal pain and bruising Hematologic/lymphatic: negative for bleeding Integumentary: no new bruises or lesions Musculoskeletal:negative for muscle weakness Neurological: negative for coordination problems and seizures All other systems negative Physical Exam: Vitals: Vitals: 04/26/23 1938 04/26/23 194 BP: (!) 141/88 Pulse: 60 Resp: 18 Temp: 36.2 C (97.1 F) TempSrc: Temporal Temporal SpO2: 97% General: Alert, in no acute distress Head: Normocephalic, atraumatic Neck: supple, trachea is midline, no obvious masses Respiratory: normal effort Cardiovascular: regular pulse, no extremity edema Musculoskeletal: moving all 4 extremities Skin: warm and dry Psych: normal mood and affect; appropriate judgement and insight Abdomen: soft, non distended, non tender, incisions c/d/I : erythematous and tender uncircumcised phallus. No skin defects or weals present. Scrotum swollen and ecchymotic with bilateral descended and palpable testis normal in size for his age. Ecchymoses scattered across scrotum. Scrotum tender to touch. No necrosis, skin defects, drainage or fluctuance appreciated. DATA: LABS: BMP: Lab Results Component Value Date GLUCOSE 113 (H) 04/26/2023 CALCIUM 9.0 04/26/2023 NA 133 (L) 04/26/2023 K 4.1 04/26/2023 CO2 24 04/26/2023 CL 103 04/26/2023 BUN 26 (H) 04/26/2023 CREATININE 1.18 04/26/2023 CBC: Lab Results Component Value Date WBC 5.8 04/26/2023 HGB 9.4 (L) 04/26/2023 HCT 28.7 (L) 04/26/2023 MCV 83.4 04/26/2023 PLT 121 (L) 04/26/2023 Urinalysis: @LASTUA@ Urine Culture: No components found for: LABURIN RADIOLOGY: CT AP and CIRA 04/26/23 reviewed IMPRESSION: 78 y.o. male with prostate cancer POD4 from robotic radical PLAN: - likely ok for discharge home - labs and imaging reviewed. Labs appear stable. Vitals stable. Imaging shows post-op changes and subcutaneous emphysema likely from insufflation. No acute intervention recommended - maintain cannon catheter until follow up - follow up 05/01/23 as scheduled Thank you for allowing me to participate in the care of your patient HELEN ELISE MD Urology PGY3 04/27/23 2:31 AM - Page premium cancellation clerk resident with questions. documented in this encounter [facility] 04-27-2023 Hospital Discharge instructions Eddie Gardner PA-C - 04/27/2023 12:48 AM EST Please take 1 tablet of PERCOCET every 6 hours, as needed for SEVERE pain. Please do not drive or operate heavy machinery while on this medication because it can impair your judgement. This is a very addictive medication, do not take it unless you absolutely have to. Follow-up with urology. Please follow up with your PCP in 2-3 days. Return to the emergency department if new or worsening symptoms develop. documented in this encounter [facility] 04-27-2023 Emergency department Note Leg bag was replaced with dependent bag- stat lock was applied so catheter is not pulling Nya Omer RN 04/27/23 0016 [facility] 04-27-2023 Emergency department Note Leg bag was replaced with dependent bag- stat lock was applied so catheter is not pulling Nya Omer RN 04/27/23 0016 Images from the original note were not included. Emergency Department Encounter [facility] EMERGENCY DEPT Patient: Cade Islas : 1945 Date of Evaluation: 04/26/2023 ED Supervising Physician: Sean Coats DO I personally saw Cade Islas and made/approved the management plan and take responsibility for the patient management. This will serve as my Supervisory note and shared attestation. I did perform a substantive portion of the visit including all aspects of the Medical Decision Making. I wore appropriate PPE for the entirety of this encounter. In brief, Cade Islas is a 78 y.o. that presents to the emergency department with increasing pain swelling bruising throughout his penile and testicular region, mild midline suprapubic tenderness to palpation. Patient is postop day 4 from robotic radical due to prostate cancer. States the pain is rather severe Focused exam: Alert and oriented 4, no acute distress, nontoxic appearing, Pulm: clear to auscultation bilaterally, Cardiac: regular rate and rhythm, Abdomen: soft nontender, Neuro: no focal motor or sensory deficits. Media Information Document Information Brief ED course/MDM: Patient presents with scrotal pain and swelling some bruising throughout the scrotum, pain and swelling throughout the meatus. Ultrasound scrotum shows no torsion, erythematous obscure images. CT scan abdomen pelvis showed postoperative changes, small volume pneumoperitoneum, excessive subcutaneous emphysema throughout the body hall, throughout the scrotum and extremities. Patient has no tenderness to the perineum. No fever or leukocytosis. I feel Fara's is unlikely however urology was consulted. Patient evaluated by urology resident, states the subcutaneous air likely from insufflation and expected for this patient. Patient's pain more controlled after IV and IM analgesics. Urology feels safe for discharge from a urologic standpoint. As we are able to get the patient's pain under control, he is amenable to discharge home with close outpatient urology follow-up. Diagnostics interpreted by me: I personally discussed the patient's management with other clinicians: All diagnostic, treatment, and disposition decisions were made by myself in conjunction with the [employer]. For all further details of the patient's emergency department visit, please see their documentation. (Comment: Please note this report has been produced using speech recognition software and may contain errors related to that system including errors in grammar, punctuation, and spelling, as well as words and phrases that may be inappropriate. If there are any questions or concerns please feel free to contact the dictating provider for clarification.) Sean Coats DO Acute Care [facility] Sean Coats DO 04/27/23 0408 documented in this encounter [facility] 04-26-2023 Physician Emergency department Note Images from the original note were not included. Emergency Department Encounter [facility] EMERGENCY DEPT Patient: Cade Islas : 1945 Date of Evaluation: 04/26/2023 ED Supervising Physician: Sean Coats DO I personally saw Cade Islas and made/approved the management plan and take responsibility for the patient management. This will serve as my Supervisory note and shared attestation. I did perform a substantive portion of the visit including all aspects of the Medical Decision Making. I wore appropriate PPE for the entirety of this encounter. In brief, Cade Islas is a 78 y.o. that presents to the emergency department with increasing pain swelling bruising throughout his penile and testicular region, mild midline suprapubic tenderness to palpation. Patient is postop day 4 from robotic radical due to prostate cancer. States the pain is rather severe Focused exam: Alert and oriented 4, no acute distress, nontoxic appearing, Pulm: clear to auscultation bilaterally, Cardiac: regular rate and rhythm, Abdomen: soft nontender, Neuro: no focal motor or sensory deficits. Media Information Document Information Brief ED course/MDM: Patient presents with scrotal pain and swelling some bruising throughout the scrotum, pain and swelling throughout the meatus. Ultrasound scrotum shows no torsion, erythematous obscure images. CT scan abdomen pelvis showed postoperative changes, small volume pneumoperitoneum, excessive subcutaneous emphysema throughout the body hall, throughout the scrotum and extremities. Patient has no tenderness to the perineum. No fever or leukocytosis. I feel Fara's is unlikely however urology was consulted. Patient evaluated by urology resident, states the subcutaneous air likely from insufflation and expected for this patient. Patient's pain more controlled after IV and IM analgesics. Urology feels safe for discharge from a urologic standpoint. As we are able to get the patient's pain under control, he is amenable to discharge home with close outpatient urology follow-up. Diagnostics interpreted by me: I personally discussed the patient's management with other clinicians: All diagnostic, treatment, and disposition decisions were made by myself in conjunction with the [employer]. For all further details of the patient's emergency department visit, please see their documentation. (Comment: Please note this report has been produced using speech recognition software and may contain errors related to that system including errors in grammar, punctuation, and spelling, as well as words and phrases that may be inappropriate. If there are any questions or concerns please feel free to contact the dictating provider for clarification.) Sean Coats DO Acute Care [facility] Sean Coats DO 04/27/23 0408 [employer] Phone: 04-24-2023 Note Formatting of this n ote might be different from the original. Care Managment Initial Assessment Date: 04/24/2023 Patient Name: Cade Islas : 1945 Patient Information Source of Information: Patient Cognition/Language: WFL - Within Functional Limits Permission given to speak with patient associate financial representative/caregiver as indicated: Confirmation of Payer with patient/family: Yes Payer Name: [employer] Medicare : No Confirmation of Primary Care Physician: Confirmed PCP Name: Nir Le MD Seen in last 2 years?: Yes Primary Caregiver: Self If assistance needed, confirmed caregiver ready, willing and able to care for patient at discharge: Confirmed with: Living Arrangements Current Residence: House Number of Floors 2 Number of Entry Steps: 3 Bed/Bath Levels: Both second floor Facility: Facility Name: Plan to Return: Lives with: Spouse/significant other Support Systems: Spouse/significant other, Family members, Friends/neighbors Activities of Daily Living Ambulation: Independent Bathing/Dressing: Independent Elimination/Continence/Toileting: Independent Feeding: Independent Who Assists with Activities of Daily Living: Instrumental Activities of Daily Living Prescription Coverage: Yes [facility] Used: [facility] Medication Management: Independent Transportation/Shopping: Independent Transportation Mode: Car Needs Assistance with Transportation at Discharge: No Meal Preparation: Independent Laundry/Cleaning: Independent Finances/Bill Paying: Independent Communication: Independent Types of Care Services/Equipment Utilized Care Services: Dialysis Type: Durable Medical Equipment: DME Provider: none Patient's Goal/Discharge Plan Patient expects to be discharged to: home with spouse Discharge Planning Actions: Continue to follow Patient's Choice Rights and [employer] and Collaborative Relationships Disclosed as Indicated for Post-Acute Care: Interdisciplinary Team Engagement: Social Work Referral for: Additional Information: 78 yo male admitted to for surgery 04/23/23: Laparoscopic prostatectomy for malignant neoplasm of prostate. Pt has been advanced to regular diet. He is using O2 2L nc; not on home O2. Met with pt at bedside; explained role of tcc. Pt has a LLQ abd drain and cannon catheter. Per surgery note, pt will be going home with catheter. Pt lives with spouse. He is independent adls and uses no dme. He declines offer of home care to assist with cannon care. Anticipate dc to home possibly later today if pt remains medically stable. Cande Shaw RN [facility] 04-24-2023 Note Formatting of this n ote might be different from the original. Care Managment Initial Assessment Date: 04/24/2023 Patient Name: Cade Islas : 1945 Patient Information Source of Information: Patient Cognition/Language: WFL - Within Functional Limits Permission given to speak with patient associate financial representative/caregiver as indicated: Confirmation of Payer with patient/family: Yes Payer Name: [employer] Medicare : No Confirmation of Primary Care Physician: Confirmed PCP Name: Nir Le MD Seen in last 2 years?: Yes Primary Caregiver: Self If assistance needed, confirmed caregiver ready, willing and able to care for patient at discharge: Confirmed with: Living Arrangements Current Residence: House Number of Floors 2 Number of Entry Steps: 3 Bed/Bath Levels: Both second floor Facility: Facility Name: Plan to Return: Lives with: Spouse/significant other Support Systems: Spouse/significant other, Family members, Friends/neighbors Activities of Daily Living Ambulation: Independent Bathing/Dressing: Independent Elimination/Continence/Toileting: Independent Feeding: Independent Who Assists with Activities of Daily Living: Instrumental Activities of Daily Living Prescription Coverage: Yes [facility] [place] Medication Management: Independent Transportation/Shopping: Independent Transportation Mode: Car Needs Assistance with Transportation at Discharge: No Meal Preparation: Independent Laundry/Cleaning: Independent Finances/Bill Paying: Independent Communication: Independent Types of Care Services/Equipment Utilized Care Services: Dialysis Type: Durable Medical Equipment: DME Provider: none Patient's Goal/Discharge Plan Patient expects to be discharged to: home with spouse Discharge Planning Actions: Continue to follow Patient's Choice Rights and [employer] and Collaborative Relationships Disclosed as Indicated for Post-Acute Care: Interdisciplinary Team Engagement: Social Work Referral for: Additional Information: 78 yo male admitted to for surgery 04/23/23: Laparoscopic prostatectomy for malignant neoplasm of prostate. Pt has been advanced to regular diet. He is using O2 2L nc; not on home O2. Met with pt at bedside; explained role of tcc. Pt has a LLQ abd drain and cannon catheter. Per surgery note, pt will be going home with catheter. Pt lives with spouse. He is independent adls and uses no dme. He declines offer of home care to assist with cannon care. Anticipate dc to home possibly later today if pt remains medically stable. Cande Shaw RN [facility] 04-24-2023 Miscellaneous Notes Care Managment Initial Assessment Date: 04/24/2023 Patient Name: Cade Islas : 1945 Patient Information Source of Information: Patient Cognition/Language: WFL - Within Functional Limits Permission given to speak with patient associate financial representative/caregiver as indicated: Confirmation of Payer with patient/family: Yes Payer Name: [employer] Medicare [place]: No Confirmation of Primary Care Physician: Confirmed PCP Name: Nir Le MD Seen in last 2 years?: Yes Primary Caregiver: Self If assistance needed, confirmed caregiver ready, willing and able to care for patient at discharge: Confirmed with: Living Arrangements Current Residence: House Number of Floors 2 Number of Entry Steps: 3 Bed/Bath Levels: Both second floor Facility: Facility Name: Plan to Return: Lives with: Spouse/significant other Support Systems: Spouse/significant other, Family members, Friends/neighbors Activities of Daily Living Ambulation: Independent Bathing/Dressing: Independent Elimination/Continence/Toileting: Independent Feeding: Independent Who Assists with Activities of Daily Living: Instrumental Activities of Daily Living Prescription Coverage: Yes [facility]: [facility] Medication Management: Independent Transportation/Shopping: Independent Transportation Mode: Car Needs Assistance with Transportation at Discharge: No Meal Preparation: Independent Laundry/Cleaning: Independent Finances/Bill Paying: Independent Communication: Independent Types of Care Services/Equipment Utilized Care Services: Dialysis Type: Durable Medical Equipment: DME Provider: none Patient's Goal/Discharge Plan Patient expects to be discharged to: home with spouse Discharge Planning Actions: Continue to follow Patient's Choice Rights and [employer] and Collaborative Relationships Disclosed as Indicated for Post-Acute Care: Interdisciplinary Team Engagement: Social Work Referral for: Additional Information: 78 yo male admitted to for surgery 04/23/23: Laparoscopic prostatectomy for malignant neoplasm of prostate. Pt has been advanced to regular diet. He is using O2 2L nc; not on home O2. Met with pt at bedside; explained role of tcc. Pt has a LLQ abd drain and cannon catheter. Per surgery note, pt will be going home with catheter. Pt lives with spouse. He is independent adls and uses no dme. He declines offer of home care to assist with cannon care. Anticipate dc to home possibly later today if pt remains medically stable. Cande Shaw RN Family at bedside. They are going home after visiting patient. We will call with room number when assigned. Patient Nicole updated by RN at this time. Date: April 23, 2023 PREOP DIAGNOSIS : ADENOCARCINOMA PROSTATE BPH POSTOP DIAGNOSIS : ADENOCARCINOMA PROSTATE BPH SURGERY: ROBOTIC RADICAL PROSTATECTOMY BILATERAL PELVIC LYMPHADENECTOMY COMPLETE SPINCTERIC ANC [employer] RECONSTRUCTION ATTENDING SURGEON Avtar Babin M.D. [facility] ANESTHESIA General Indication: Patient was diagnosed with Adenocarcinoma Prosatate. He was advised to undergo roboric radical prostatectomy by VIP ([facility] Prostatectomy) technique. Patient was explained the procedure and all possible complications during his clinic consultation with mo. Informed consent was obtained. Patient was given perioperative antibiotics and DVT prophylaxis in preop holding area. General anesthesia was administered. Patient was placed in the supine position with a roll under the knees. Both arms were padded and taped by the sides. Padded cross-strapping of the patient s chest was done to the operating table to preventany movement, as the table was set in a 20 degreeTrendelenburg position. After the patient was prepared and draped, a Cannon catheter was placed into the bladder and an orogastric tube was placed. STEP 1; PORT PLACEMENT Pneumoperitoneum of 15 mmHg was created by placing a Veress needle through an incision just lateral to the umbilicus. A 8-mm camera port was placed through the same incision using optically guided trocar, a 30 binocular telescope, looking upward, was then placed through the camera port. All other ports were placed under direct vision. Two 8 mm robotic ports on left side of carmera port and one on right side, one 12 mm airseal, one 5 mm right sided speech pathology assistant ports were placed. After placing the ports the airseal mode was initiated. The surgical cart was then docked to the ports.to the ports. STEP 2; ENTRY INTO THE SPACE OF RETZIUS The extraperitoneal space was entered through an inverted, U-shaped incision on the parietal peritoneum, superior to the dome of the bladder and lateral to the medial umbilical ligaments. The vertical limb of the peritoneal incision was made lateral to the medial umbilical ligament, and medial to the internal inguinal ring. The vas deferens was seen coursing obliquely across the incision and was retracted from the operating ? eld. When the inferior portion of the vertical limb of the peritoneal incision was deepened, the pubic bone was seen as an anatomical landmark and the iliac vessels were seen laterally. The incisions were joined anteriorly, dividing the bilateral medial umbilical ligaments and urachus, and then the bladder was dissected off the anterior abdominal wall to enter into the space of Retzius . The endopelvic fascia opened. The prostate was massive, and his pelvis is very small, creating very little working room. This makes this surgery very challenging and a prolonged time STEP 3; BILATERAL PELVIC LYMPHADENECTOMY Standard Template The retroperitoneal fat was cleared from the anterior surface of the external iliac vein; the latter was identi?ed and dissected carefully along its inferior border. The obturator nerve was identi? ed and served as the posterior margin of dissection. Beginning at the pubic ramus, the lymph nodes and fatty tissues were cleaned from the obturator fossa. The packet of ?bro-fatty and pepper tissuewas grasped by the speech pathology assistant and dissected toward the bifurcation of the external iliac vein. The lymphnode package was removed by the speech pathology assistant through 12 mm port and was sent for HPE. This procedure was repeated on the other side. STEP 4; BLADDER NECK DISSECTION Anterior bladder neck: this portion of the procedure was done with a 30 lens looking down. The speech pathology assistant grasped the anterior bladder wall in the midline with an atraumatic grasper, lifted it directly towards the ceiling and the Cannon balloon was deflated while keeping the catheter in the bladder. A 1 cm incision was made in the anterior bladder neck at the 12 o clock position, cutting down the detrusor to expose the catheter in the midline. After the anterior bladder neck was incised, the tip of the Cannon catheter was grasped with 4th robotic arm with ? rm anterior traction. There was noted to be a very protruberant median lobe, which was used for retraction after placing suture through this This exposed the posterior bladder neck, which was incised. The posterior bladder neck was gradually dissected away from the prostate. The direction of the dissection was directly posterior; care was exercised to avoid dissecting into the prostate or in the posterior detrusor wall. STEP 5; POSTERIOR DISSECTION Incising the anterior Denonvilliers fascia: after the full thickness of detrusor at the posterior bladder neck was divided it exposed the anterior layer of Denonvilliers fascia, covering both vasa deferentia and seminal vesicles. This fascia was incised to create a window from where the vasa deferentia and seminal vesicles could be seen. Both vasa were grasped and retracted laterally. The posterior layer of Denonvilliers fascia was incised and a plane was developed between the posterior layer of Denonvilliers fascia and perirectal . This dissection was carried out in an avascular plane distally to the prostatic apex. The vasa were then cut and Seminal vesicles were dissected taking care to clip the vessels and avoid use of thermal energy. STEP 6; CONTROL OF THE PEDICLE AND NERVE-SPARING The base of the seminal vesicle was retracted superomedially on the opposite side, and the prostatic pedicle was delineated and divided. The pedicles were controlled by either clipping and individually coagulating the vessels by fine bipolar cauterization. Standard nerve-sparing: The prostatic fascia anterior and parallel to the neurovascular bundles was incised. The neurovascular tissue was then dissected off the prostate posterolaterally. The prostate was retracted in the direction of the contralateral shoulder of the patient, to provide exposure. After the correct plane was entered, most dissection occured in a relatively avascular plane. The dissection was then carried distally beyond the prostatic apex to expose the urethra posterolaterally. This procedure was repeated on the other side. STEP 7; APICAL DISSECTION AND CONTROL OF DORSAL VENOUS COMPLEX For the incision of the puboprostatic ligaments and dorsal vein complex, the binocular telescope was changed to a 0 lens. The speech pathology assistant retracted the prostate ?rmly to the patient s head. Periprostatic tissues were incised sharply and cleanly with the robotic scissors. The puboprostatic ligament was incised where it inserted into the apical prostatic notch. The dorsal veins were also divided at the same level. URETHRAL TRANSECTION The urethra wasthen dissected into the prostatic notch taking care not to skeletonize the urethra; maintaining the ?brovascular support of the urethra intact to hastens the return of continence. To avoid positive surgical margins the urethra was transected sharply 5 mm distal to the notch. The anterior wall was cut with the Cannon catheter across the urethra. The Cannon was then withdrawn and the bipolar grasper was passed behind the posterior urethral wall to separate the urethral wall from recto-urethralis and the rectal wall. The remainder of the urethra was cut sharply with robotic scissors. The prostate specimen was now free and it was placed in a specimen-retrieval bag for later retrieval. The dorsal venous complex was then controlled by a suture of 2/0 vicryl on RB1 needle. Haemostasis of the prostatic bed was achieved by clips and by ?ne bipolar coagulation. STEP 8; COMPLETE R RECONSRTUCTION OF DENONVILLIER S FASICA AND SPHINCTER COMPLEX The reconstruction of Denonvilliers fascia and sphincter was then started 3-0 V lock suture , this was used to repair the proximal and distal cut end of Denonvillier s fascia in a clockwise fashion from right to left. urethra was now joined to the anterior detrusor muscle finishing the reconstruction. STEP9; URETHROVESICAL ANASTOMOSIS Using 2-0 Vicryl, a figure of eight suture was used at the 3 and 9 oclock positions on the bladder neck. This was performed to tension the bladder neck and recreate a more anatomic bladder neck, facilitating a water tight anastomosis The anastomosis was started with 3-0 V ock suture from bladder wall at the 4 o clock position, outside-in. The urethral bite was made inside-out, at the corresponding site. After three such bites, which cover a major portion of the posterior aspect of the anastomosis, the bladder was brought down by tightening the suture. A Connel suture was then taken at the bladder, thereby changing the direction of the passage of the needle from outside-in at the bladder to inside-out and inside-out at the urethra to outside-in. The suture was run clockwise up to the 11 o clock position; at this point the suture was anchored, under gentle traction. The other 3-0 V Lock suture was then run counter- clockwise from the 4 o clock to the 11 o clock position. While placing the anastomotic sutures the speech pathology assistant moved the tip of urethral Cannon in an out of the urethral stump to prevent suturing of the back wall of the urethra. Both a sutures were tied to each other to complete the anastomosis. All the needles were securely removed. A new 20 F Cannon catheter was introduced and its balloon was in?ated to 20 mL. The bladder was ?lled with 250 mL of saline to test the integrity of the anastomosis. No leakage was noticed. STEP 9; SPECIMEN RETRIEVAL AND CLOSURE A 19 Fr Kurtis-Jarvis drain was placed through the left 8-mm port and was secured to the skin with a #30 Nylon suture. The specimen within the retrieval bag was removed after enlarging the umbilical port incision . The fascia of the incision was then closed with two interrupted sutures of #1 PDS. The skin was closed by 4-0 vicryl, subcuticular sutures and sterilstrips. Patient tolerated the procedure well. EBL :150ml . PRE-PROCEDURE ROUNDING COMPLETE. documented in this encounter [facility] 04-23-2023 Note Formatting of this n ote might be different from the original. Family at bedside. They are going home after visiting patient. We will call with room number when assigned. [facility] 04-23-2023 Note Formatting of this n ote might be different from the original. Family at bedside. They are going home after visiting patient. We will call with room number when assigned. [facility] 04-23-2023 Note Formatting of this n ote might be different from the original. Patient Nicole updated by RN at this time. [facility] 04-23-2023 Note Formatting of this n ote might be different from the original. Patient Nicole updated by RN at this time. [facility] 04-23-2023 History and physical note Interval History and Physical I have interviewed and examined the patient and reviewed the recent History and Physical. There have been no changes to the recent H&P documentation. The H&P resides on a progress note on this patient's chart. The patient understands the planned operation and its associated risks and benefits and agrees to proceed. The surgical consent form has been signed. BP (!) 144/96 Pulse 97 Temp 36.4 C (97.6 F) (Temporal) Resp 16 Ht 5' 8 (1.727 m) Wt 207 lb (93.9 kg) SpO2 100% BMI 31.47 kg/m [facility] Work Phone: 04-23-2023 History and physical note Interval History and Physical I have interviewed and examined the patient and reviewed the recent History and Physical. There have been no changes to the recent H&P documentation. The H&P resides on a progress note on this patient's chart. The patient understands the planned operation and its associated risks and benefits and agrees to proceed. The surgical consent form has been signed. BP (!) 144/96 Pulse 97 Temp 36.4 C (97.6 F) (Temporal) Resp 16 Ht 5' 8 (1.727 m) Wt 207 lb (93.9 kg) SpO2 100% BMI 31.47 kg/m Comprehensive Pre Surgical History and Physical ? Name: Cade Islas : 1945 (Age-78 y.o.) Date of Service: Pt seen/examined on 04/18/2023 Procedure Information Date/Time: 04/23/23 1300 Procedures: ROBOTIC ASSISTED LAPAROSCOPIC PROSTATECTOMY, BILATERAL PELVIC LYMPH NODE DISECTION (Bilateral: Abdomen) ROBOTIC (XI) RETROPERITONEAL LYMPH NODE DISSECTION/BIOPSY WITH BILATERAL TOTAL PELVIS LYMPHADENECTOMY (Bilateral: Abdomen) Location: [facility] OR [address] [place] [address] Operating Room Surgeons: Avtar Babin MD Chief Complaint: Malignant neoplasm of prostate ASSESSMENT/PLAN: Patient is considered high risk for this intermediate level 3 risk procedure/surgery () with no reducible risk factors. Cardiac clearance pending Had +MRSA culture 04/04/23 at [facility] (surgeon's office notified) 1) Malignant neoplasm of prostate - Managed per surgery 2) Hx Afib/ CAD/ HTN/ HLD/ Pacemaker (Placed 2023) Xarelto - was instructed by body and fender mechanic apprentice to hold for 2 days Weekly EKGs and wound check- no pacemaker download until June per body and fender mechanic apprentice office Lipitor Vascepa Lisinopril Sotalol Norvasc Micro-K BP Readings from Last 3 Encounters: 04/18/23 (!) 145/84 Cardiac clearance pending from Dr. Potter(requested by Dr. Babin's office) 3) Diabetes Metformin Semaglutide Gabapentin 4) Depression Elavil Visit Type: Pre-Admission Testing Visit Labs Ordered: YES - PER PAT PROTOCOL Sleep Referral Ordered: NO - NEGATIVE SCREEN PER SLEEP REFERRAL PROTOCOL Total time spent (which include face to face and non face to face encounters) : 45 minutes Toxic drug monitoring/narrow therapeutic index drug monitoring : # Drug name : multiple # Route administered : oral # Method of monitoring : labs/ ekg PAT Protocol referenced includes: 1. Anesthesia Lab Protocol Orders 2. Perioperative Cardiovascular Risk Assessment 3. Anesthesia Assessment 4. Pain Assessment and Acute Pain Service Consult (if appropriate) 5. Medical Clearance/Consult from Internal Medicine (IM[facility]) 6. Shower/Wash Order (for designated surgeries) 7. YEISON Screen and Sleep Clinic Referral (if appropriate) History Of Present Illness: 78 y.o. male who we are asked to see/evaluate by Dr. Babin for pre-operative evaluation prior to above procedure. ? Denies history of TN, CAD, CHF, TIA, CVA Past Medical History: Past Medical History: No date: Diabetes (HCC) No date: GERD (gastroesophageal reflux disease) No date: History of chronic atrial fibrillation No date: Hyperlipidemia No date: Hypertension No date: Hypothyroidism No date: Pacemaker No date: Thrombocytopenia (HCC) Past Surgical History: Past Surgical History: No date: ATRIAL CARDIAC PACEMAKER INSERTION No date: CHOLECYSTECTOMY No date: PACEMAKER (HISTORICAL) No date: SPINAL CORD STIMULATOR IMPLANT Medications Prior to Admission: Prior to Admission medications Medication Sig Start Date End Date Taking? Authorizing Provider amitriptyline (Elavil) 100 MG tablet 03/02/23 Historical Provider, amLODIPine (Norvasc) 5 MG tablet 10/09/22 Historical Provider, atorvastatin (Lipitor) 10 MG tablet 03/09/23 Historical Provider, fluticasone (Flonase) 50 MCG/ACT nasal spray 08/03/22 Historical Provider, gabapentin (Neurontin) 600 MG tablet 02/19/23 Historical Provider, HYDROcodone-acetaminophen ([place]) 7.5-325 MG tablet 03/02/23 Historical Provider, levothyroxine (Synthroid, Levoxyl) 50 MCG tablet 12/11/22 Historical Provider, lisinopril 40 MG tablet 03/27/23 Historical Provider, metFORMIN XR (Glucophage-XR) 500 MG 24 hr tablet 03/20/23 Historical Provider, omeprazole (PriLOSEC) [address] capsule 03/01/23 Historical Provider, potassium chloride ER (Micro-K) 10 MEQ ER capsule 01/14/23 Historical Provider, Semaglutide, 2 MG/DOSE, (Ozempic, 2 MG/DOSE,) 8 MG/3ML solution pen-injector Inject under the skin. 05/24/22 Historical Provider, tamsulosin (Flomax) 0.4 MG 24 hr capsule 02/16/23 Historical Provider, Vascepa 1 g capsule 12/11/22 Historical Provider, Xarelto 20 MG tablet 11/11/22 Historical Provider, CHRONIC NARCOTIC USE: No Allergies: Patient has no known allergies. If patient has opioid allergy, is it okay to take Acetaminophen: Yes Social History: TOBACCO: reports that he has never smoked. He has never used smokeless tobacco. ETOH: reports that he does not currently use alcohol. Social History Substance and Sexual Activity Drug Use Never Family History: No family history on file. REVIEW OF SYSTEMS: Review of Systems Constitutional: Negative for chills and fever. HENT: Negative for congestion and trouble swallowing. Respiratory: Negative for cough and shortness of breath. Cardiovascular: Negative for chest pain and leg swelling. Gastrointestinal: Negative for abdominal pain, nausea and vomiting. Skin: Negative for rash. Neurological: Negative for weakness and headaches. Physical Exam: Physical Exam Constitutional: Appearance: Normal appearance. HENT: Head: Normocephalic and atraumatic. Mouth/Throat: Mouth: Mucous membranes are moist. Pharynx: Oropharynx is clear. Eyes: Pupils: Pupils are equal, round, and reactive to light. Cardiovascular: Rate and Rhythm: Normal rate. Pulmonary: Effort: Pulmonary effort is normal. Breath sounds: Normal breath sounds. Musculoskeletal: General: Normal range of motion. Cervical back: Normal range of motion. Skin: General: Skin is warm and dry. Capillary Refill: Capillary refill takes less than 2 seconds. Neurological: General: No focal deficit present. Mental Status: He is alert and oriented to person, place, and time. Psychiatric: Mood and Affect: Mood normal. Behavior: Behavior normal. Vitals: Vitals Value Taken Time BP 145/84 04/18/23 1532 Temp 35.8 C (96.4 F) 04/18/23 1532 Pulse 68 04/18/23 1532 Resp 18 04/18/23 1532 SpO2 98 % 04/18/23 1532 Labs: Collected 1/10/24- in care everywhere [facility] Simple Cardiac Risk Index: FREDERICK'S SIMPLE CARDIAC RISK SCORE: 3 Interpretation: 0 Points Class I 0.5% 1 Point Class II 1.3% 2 Points Class III 3.6% 3+ Points Class IV 9.1% PAT Pain Score: Postop Pain Management Plan (Pain consult ordered?): Pain consult not indicated at this time ? EKG: Impression Performed by [facility] AV dual-paced rhythm with prolonged AV conduction Abnormal ECG When compared with ECG of 06-APR-2023 12:33, Ventricular pacing is now present. Confirmed by YOGESH ACUNA MD ([id number]) on 04/10/2023 10:14:47 AM Narrative Performed by [facility] NAME : CADE ISLAS PID : [id number] : 1945 Gender : Male Race : ORD : [id number] Procedure Date : Apr 09 2023 10:30:39 Edit Date : Apr 10 2023 10:14:49 Diagnosis: AV dual-paced rhythm with prolonged AV conduction Abnormal ECG When compared with ECG of 06-APR-2023 12:33, Ventricular pacing is now present. Confirmed by YOGESH ACUNA MD ([id number]) on 04/10/2023 10:14:47 AM ECHO and EF:Echo 02/21/2023 Heart rate 60 bpm Blood pressure 147/81 mmHg Color Doppler was utilized to interrogate the cardiac valves assessed and spectral Doppler was utilized to determine the flow velocities and pressure gradients reported in this exam. MEASUREMENTS: Value Indexed Normal Max aortic dimension 3.6 cm Ao < 3.8 Left atrial volume 41 ml (biplane A-L) 19 ml/m Nadja <= 34 LV stroke volume 47 ml (2D 4-ch.) LVOT stroke volume 99 ml 46 ml/m LV end diastolic volume 75 ml (2D 4-ch.) 34.2 ml/m 34<=EDVi<75 LV end systolic volume 28 ml (2D 4-ch.) 12.7 ml/m Ejection Fraction 63 % (2D 4-ch.) EF > 52 FINDINGS: LEFT VENTRICLE The left ventricle is normal in size. Left ventricular systolic function is normal. Indeterminate left ventricular diastolic dysfunction. Mitral annular lateral E/e': 9.5. Mitral annular septal E/e': 10.9. Wall Motion: All scored segments are normal. RIGHT VENTRICLE The right ventricle is normal in size. Right ventricular systolic function is normal. Tricuspid annular displacement is 2.4 cm. Estimated right ventricular systolic pressure is 15 mmHg consistent with normal pulmonary artery pressures. Estimated right atrial pressure is 3 mmHg based on IVC assessment. LEFT ATRIUM The left atrial cavity is normal in size. RIGHT ATRIUM The right atrial cavity is normal in size. Inferior Vena Cava: The inferior vena cava appears normal measuring 1.7 cm. The vessel decreases greater than 50 percent with inspiration. MITRAL VALVE The mitral valve leaflets are structurally normal. There is no mitral stenosis. There is no mitral valve regurgitation. There is mild thickening. There is mild calcification. The peak mitral valve gradient is 5 mmHg. The mean mitral valve gradient is 1 mmHg. The pressure half time is 63 msec. The peak mitral E/A ratio is 0.87. The average mitral E/e' ratio is 10.2. The mitral flow deceleration time is 217 msec. TRICUSPID VALVE The tricuspid valve leaflets are structurally normal. There is no tricuspid stenosis. There is no tricuspid valve regurgitation. There is no thickening. AORTIC VALVE There is no aortic valve stenosis. There is trace aortic valve regurgitation. Tricuspid aortic valve. There is mild thickening. There is mild calcification. The peak gradient is 14 mmHg (peak velocity = 188.0 cm/s). The mean gradient is 7 mmHg. The LVOT mean velocity is 101.0 cm/s. The LVOT diameter is 2.0 cm. The aortic VTI is 34.6 cm. The mean velocity in the aortic valve is 125.0 cm/s. The dimensionless valve index is 0.91. AV area is 2.86 cm (1.31 cm /m ) by continuity, VTI. The LVOT stroke volume index is 46 ml/m . PULMONIC VALVE The pulmonic valve cusps are structurally normal. There is no pulmonic stenosis. There is trace pulmonic valve regurgitation. There is no thickening. The peak gradient is 5 mmHg. AORTA The visualized aorta is normal in size. Measurements - Sinus: 3.5 cm. Sinotubular junction 3.4 cm. Mid ascending aorta 3.6 cm. PULMONARY ARTERIES The pulmonary arteries are normal. PERICARDIUM The pericardium is normal. Specimen Collected: 02/21/23 07:58 METS >4 Electronically signed by: Lalita Salazar, TICKET SORTER - EPIC AMBULATORY ANALYST Date: 04/18/2023 at 4:10 PM documented in this encounter [facility] 04-23-2023 Note Formatting of this n ote is different from the original. Date: April 23, 2023 PREOP DIAGNOSIS : ADENOCARCINOMA PROSTATE BPH POSTOP DIAGNOSIS : ADENOCARCINOMA PROSTATE BPH SURGERY: ROBOTIC RADICAL PROSTATECTOMY BILATERAL PELVIC LYMPHADENECTOMY COMPLETE SPINCTERIC ANC DENONVILLIERS RECONSTRUCTION ATTENDING SURGEON Avtar Babin M.D. [facility] ANESTHESIA General Indication: Patient was diagnosed with Adenocarcinoma Prosatate. He was advised to undergo roboric radical prostatectomy by [facility] ([facility] Prostate[facility]) technique. Patient was explained the procedure and all possible complications during his clinic consultation with mo. Informed consent was obtained. Patient was given perioperative antibiotics and DVT prophylaxis in preop holding area. General anesthesia was administered. Patient was placed in the supine position with a roll under the knees. Both arms were padded and taped by the sides. Padded cross-strapping of the patient s chest was done to the operating table to preventany movement, as the table was set in a 20 degreeTrendelenburg position. After the patient was prepared and draped, a Cannon catheter was placed into the bladder and an orogastric tube was placed. STEP 1; PORT PLACEMENT Pneumoperitoneum of 15 mmHg was created by placing a Veress needle through an incision just lateral to the umbilicus. A 8-mm camera port was placed through the same incision using optically guided trocar, a 30 binocular telescope, looking upward, was then placed through the camera port. All other ports were placed under direct vision. Two 8 mm robotic ports on left side of carmera port and one on right side, one 12 mm airseal, one 5 mm right sided speech pathology assistant ports were placed. After placing the ports the airseal mode was initiated. The surgical cart was then docked to the ports.to the ports. STEP 2; ENTRY INTO THE SPACE OF RETZIUS The extraperitoneal space was entered through an inverted, U-shaped incision on the parietal peritoneum, superior to the dome of the bladder and lateral to the medial umbilical ligaments. The vertical limb of the peritoneal incision was made lateral to the medial umbilical ligament, and medial to the internal inguinal ring. The vas deferens was seen coursing obliquely across the incision and was retracted from the operating ? eld. When the inferior portion of the vertical limb of the peritoneal incision was deepened, the pubic bone was seen as an anatomical landmark and the iliac vessels were seen laterally. The incisions were joined anteriorly, dividing the bilateral medial umbilical ligaments and urachus, and then the bladder was dissected off the anterior abdominal wall to enter into the space of Retzius . The endopelvic fascia opened. The prostate was massive, and his pelvis is very small, creating very little working room. This makes this surgery very challenging and a prolonged time STEP 3; BILATERAL PELVIC LYMPHADENECTOMY Standard Template The retroperitoneal fat was cleared from the anterior surface of the external iliac vein; the latter was identi?ed and dissected carefully along its inferior border. The obturator nerve was identi? ed and served as the posterior margin of dissection. Beginning at the pubic ramus, the lymph nodes and fatty tissues were cleaned from the obturator fossa. The packet of ?bro-fatty and pepper tissuewas grasped by the speech pathology assistant and dissected toward the bifurcation of the external iliac vein. The lymphnode package was removed by the speech pathology assistant through 12 mm port and was sent for HPE. This procedure was repeated on the other side. STEP 4; BLADDER NECK DISSECTION Anterior bladder neck: this portion of the procedure was done with a 30 lens looking down. The speech pathology assistant grasped the anterior bladder wall in the midline with an atraumatic grasper, lifted it directly towards the ceiling and the Cannon balloon was deflated while keeping the catheter in the bladder. A 1 cm incision was made in the anterior bladder neck at the 12 o clock position, cutting down the detrusor to expose the catheter in the midline. After the anterior bladder neck was incised, the tip of the Cannon catheter was grasped with 4th robotic arm with ? rm anterior traction. There was noted to be a very protruberant median lobe, which was used for retraction after placing suture through this This exposed the posterior bladder neck, which was incised. The posterior bladder neck was gradually dissected away from the prostate. The direction of the dissection was directly posterior; care was exercised to avoid dissecting into the prostate or in the posterior detrusor wall. STEP 5; POSTERIOR DISSECTION Incising the anterior Denonvilliers fascia: after the full thickness of detrusor at the posterior bladder neck was divided it exposed the anterior layer of Denonvilliers fascia, covering both vasa deferentia and seminal vesicles. This fascia was incised to create a window from where the vasa deferentia and seminal vesicles could be seen. Both vasa were grasped and retracted laterally. The posterior layer of Denonvilliers fascia was incised and a plane was developed between the posterior layer of Denonvilliers fascia and perirectal . This dissection was carried out in an avascular plane distally to the prostatic apex. The vasa were then cut and Seminal vesicles were dissected taking care to clip the vessels and avoid use of thermal energy. STEP 6; CONTROL OF THE PEDICLE AND NERVE-SPARING The base of the seminal vesicle was retracted superomedially on the opposite side, and the prostatic pedicle was delineated and divided. The pedicles were controlled by either clipping and individually coagulating the vessels by fine bipolar cauterization. Standard nerve-sparing: The prostatic fascia anterior and parallel to the neurovascular bundles was incised. The neurovascular tissue was then dissected off the prostate posterolaterally. The prostate was retracted in the direction of the contralateral shoulder of the patient, to provide exposure. After the correct plane was entered, most dissection occured in a relatively avascular plane. The dissection was then carried distally beyond the prostatic apex to expose the urethra posterolaterally. This procedure was repeated on the other side. STEP 7; APICAL DISSECTION AND CONTROL OF DORSAL VENOUS COMPLEX For the incision of the puboprostatic ligaments and dorsal vein complex, the binocular telescope was changed to a 0 lens. The speech pathology assistant retracted the prostate ?rmly to the patient s head. Periprostatic tissues were incised sharply and cleanly with the robotic scissors. The puboprostatic ligament was incised where it inserted into the apical prostatic notch. The dorsal veins were also divided at the same level. URETHRAL TRANSECTION The urethra wasthen dissected into the prostatic notch taking care not to skeletonize the urethra; maintaining the ?brovascular support of the urethra intact to hastens the return of continence. To avoid positive surgical margins the urethra was transected sharply 5 mm distal to the notch. The anterior wall was cut with the Cannon catheter across the urethra. The Cannon was then withdrawn and the bipolar grasper was passed behind the posterior urethral wall to separate the urethral wall from recto-urethralis and the rectal wall. The remainder of the urethra was cut sharply with robotic scissors. The prostate specimen was now free and it was placed in a specimen-retrieval bag for later retrieval. The dorsal venous complex was then controlled by a suture of 2/0 vicryl on RB1 needle. Haemostasis of the prostatic bed was achieved by clips and by ?ne bipolar coagulation. STEP 8; COMPLETE R RECONSRTUCTION OF DENONVILLIER S FASICA AND SPHINCTER COMPLEX The reconstruction of Denonvilliers fascia and sphincter was then started 3-0 V lock suture , this was used to repair the proximal and distal cut end of Denonvillier s fascia in a clockwise fashion from right to left. urethra was now joined to the anterior detrusor muscle finishing the reconstruction. STEP9; URETHROVESICAL ANASTOMOSIS Using 2-0 Vicryl, a figure of eight suture was used at the 3 and 9 oclock positions on the bladder neck. This was performed to tension the bladder neck and recreate a more anatomic bladder neck, facilitating a water tight anastomosis The anastomosis was started with 3-0 V ock suture from bladder wall at the 4 o clock position, outside-in. The urethral bite was made inside-out, at the corresponding site. After three such bites, which cover a major portion of the posterior aspect of the anastomosis, the bladder was brought down by tightening the suture. A Connel suture was then taken at the bladder, thereby changing the direction of the passage of the needle from outside-in at the bladder to inside-out and inside-out at the urethra to outside-in. The suture was run clockwise up to the 11 o clock position; at this point the suture was anchored, under gentle traction. The other 3-0 V Lock suture was then run counter- clockwise from the 4 o clock to the 11 o clock position. While placing the anastomotic sutures the speech pathology assistant moved the tip of urethral Cannon in an out of the urethral stump to prevent suturing of the back wall of the urethra. Both a sutures were tied to each other to complete the anastomosis. All the needles were securely removed. A new 20 F Cannon catheter was introduced and its balloon was in?ated to 20 mL. The bladder was ?lled with 250 mL of saline to test the integrity of the anastomosis. No leakage was noticed. STEP 9; SPECIMEN RETRIEVAL AND CLOSURE A 19 Fr Kurtis-Jarvis drain was placed through the left 8-mm port and was secured to the skin with a #30 Nylon suture. The specimen within the retrieval bag was removed after enlarging the umbilical port incision . The fascia of the incision was then closed with two interrupted sutures of #1 PDS. The skin was closed by 4-0 vicryl, subcuticular sutures and sterilstrips. Patient tolerated the procedure well. EBL :150ml . [facility] 04-23-2023 Note Formatting of this n ote is different from the original. Date: April 23, 2023 PREOP DIAGNOSIS : ADENOCARCINOMA PROSTATE BPH POSTOP DIAGNOSIS : ADENOCARCINOMA PROSTATE BPH SURGERY: ROBOTIC RADICAL PROSTATECTOMY BILATERAL PELVIC LYMPHADENECTOMY COMPLETE SPINCTERIC ANC DENONVILLIERS RECONSTRUCTION ATTENDING SURGEON Avtar Babin M.D. [facility] ANESTHESIA General Indication: Patient was diagnosed with Adenocarcinoma Prosatate. He was advised to undergo roboric radical prostatectomy by VIP ([facility] Prostatectomy) technique. Patient was explained the procedure and all possible complications during his clinic consultation with mo. Informed consent was obtained. Patient was given perioperative antibiotics and DVT prophylaxis in preop holding area. General anesthesia was administered. Patient was placed in the supine position with a roll under the knees. Both arms were padded and taped by the sides. Padded cross-strapping of the patient s chest was done to the operating table to preventany movement, as the table was set in a 20 degreeTrendelenburg position. After the patient was prepared and draped, a Cannon catheter was placed into the bladder and an orogastric tube was placed. STEP 1; PORT PLACEMENT Pneumoperitoneum of 15 mmHg was created by placing a Veress needle through an incision just lateral to the umbilicus. A 8-mm camera port was placed through the same incision using optically guided trocar, a 30 binocular telescope, looking upward, was then placed through the camera port. All other ports were placed under direct vision. Two 8 mm robotic ports on left side of carmera port and one on right side, one 12 mm airseal, one 5 mm right sided speech pathology assistant ports were placed. After placing the ports the airseal mode was initiated. The surgical cart was then docked to the ports.to the ports. STEP 2; ENTRY INTO THE SPACE OF RETZIUS The extraperitoneal space was entered through an inverted, U-shaped incision on the parietal peritoneum, superior to the dome of the bladder and lateral to the medial umbilical ligaments. The vertical limb of the peritoneal incision was made lateral to the medial umbilical ligament, and medial to the internal inguinal ring. The vas deferens was seen coursing obliquely across the incision and was retracted from the operating ? eld. When the inferior portion of the vertical limb of the peritoneal incision was deepened, the pubic bone was seen as an anatomical landmark and the iliac vessels were seen laterally. The incisions were joined anteriorly, dividing the bilateral medial umbilical ligaments and urachus, and then the bladder was dissected off the anterior abdominal wall to enter into the space of Retzius . The endopelvic fascia opened. The prostate was massive, and his pelvis is very small, creating very little working room. This makes this surgery very challenging and a prolonged time STEP 3; BILATERAL PELVIC LYMPHADENECTOMY Standard Template The retroperitoneal fat was cleared from the anterior surface of the external iliac vein; the latter was identi?ed and dissected carefully along its inferior border. The obturator nerve was identi? ed and served as the posterior margin of dissection. Beginning at the pubic ramus, the lymph nodes and fatty tissues were cleaned from the obturator fossa. The packet of ?bro-fatty and pepper tissuewas grasped by the speech pathology assistant and dissected toward the bifurcation of the external iliac vein. The lymphnode package was removed by the speech pathology assistant through 12 mm port and was sent for HPE. This procedure was repeated on the other side. STEP 4; BLADDER NECK DISSECTION Anterior bladder neck: this portion of the procedure was done with a 30 lens looking down. The speech pathology assistant grasped the anterior bladder wall in the midline with an atraumatic grasper, lifted it directly towards the ceiling and the Cannon balloon was deflated while keeping the catheter in the bladder. A 1 cm incision was made in the anterior bladder neck at the 12 o clock position, cutting down the detrusor to expose the catheter in the midline. After the anterior bladder neck was incised, the tip of the Cannon catheter was grasped with 4th robotic arm with ? rm anterior traction. There was noted to be a very protruberant median lobe, which was used for retraction after placing suture through this This exposed the posterior bladder neck, which was incised. The posterior bladder neck was gradually dissected away from the prostate. The direction of the dissection was directly posterior; care was exercised to avoid dissecting into the prostate or in the posterior detrusor wall. STEP 5; POSTERIOR DISSECTION Incising the anterior Denonvilliers fascia: after the full thickness of detrusor at the posterior bladder neck was divided it exposed the anterior layer of Denonvilliers fascia, covering both vasa deferentia and seminal vesicles. This fascia was incised to create a window from where the vasa deferentia and seminal vesicles could be seen. Both vasa were grasped and retracted laterally. The posterior layer of Denonvilliers fascia was incised and a plane was developed between the posterior layer of Denonvilliers fascia and perirectal . This dissection was carried out in an avascular plane distally to the prostatic apex. The vasa were then cut and Seminal vesicles were dissected taking care to clip the vessels and avoid use of thermal energy. STEP 6; CONTROL OF THE PEDICLE AND NERVE-SPARING The base of the seminal vesicle was retracted superomedially on the opposite side, and the prostatic pedicle was delineated and divided. The pedicles were controlled by either clipping and individually coagulating the vessels by fine bipolar cauterization. Standard nerve-sparing: The prostatic fascia anterior and parallel to the neurovascular bundles was incised. The neurovascular tissue was then dissected off the prostate posterolaterally. The prostate was retracted in the direction of the contralateral shoulder of the patient, to provide exposure. After the correct plane was entered, most dissection occured in a relatively avascular plane. The dissection was then carried distally beyond the prostatic apex to expose the urethra posterolaterally. This procedure was repeated on the other side. STEP 7; APICAL DISSECTION AND CONTROL OF DORSAL VENOUS COMPLEX For the incision of the puboprostatic ligaments and dorsal vein complex, the binocular telescope was changed to a 0 lens. The speech pathology assistant retracted the prostate ?rmly to the patient s head. Periprostatic tissues were incised sharply and cleanly with the robotic scissors. The puboprostatic ligament was incised where it inserted into the apical prostatic notch. The dorsal veins were also divided at the same level. URETHRAL TRANSECTION The urethra wasthen dissected into the prostatic notch taking care not to skeletonize the urethra; maintaining the ?brovascular support of the urethra intact to hastens the return of continence. To avoid positive surgical margins the urethra was transected sharply 5 mm distal to the notch. The anterior wall was cut with the Cannon catheter across the urethra. The Cannon was then withdrawn and the bipolar grasper was passed behind the posterior urethral wall to separate the urethral wall from recto-urethralis and the rectal wall. The remainder of the urethra was cut sharply with robotic scissors. The prostate specimen was now free and it was placed in a specimen-retrieval bag for later retrieval. The dorsal venous complex was then controlled by a suture of 2/0 vicryl on RB1 needle. Haemostasis of the prostatic bed was achieved by clips and by ?ne bipolar coagulation. STEP 8; COMPLETE R RECONSRTUCTION OF DENONVILLIER S FASICA AND SPHINCTER COMPLEX The reconstruction of Denonvilliers fascia and sphincter was then started 3-0 V lock suture , this was used to repair the proximal and distal cut end of Denonvillier s fascia in a clockwise fashion from right to left. urethra was now joined to the anterior detrusor muscle finishing the reconstruction. STEP9; URETHROVESICAL ANASTOMOSIS Using 2-0 Vicryl, a figure of eight suture was used at the 3 and 9 oclock positions on the bladder neck. This was performed to tension the bladder neck and recreate a more anatomic bladder neck, facilitating a water tight anastomosis The anastomosis was started with 3-0 V ock suture from bladder wall at the 4 o clock position, outside-in. The urethral bite was made inside-out, at the corresponding site. After three such bites, which cover a major portion of the posterior aspect of the anastomosis, the bladder was brought down by tightening the suture. A Connel suture was then taken at the bladder, thereby changing the direction of the passage of the needle from outside-in at the bladder to inside-out and inside-out at the urethra to outside-in. The suture was run clockwise up to the 11 o clock position; at this point the suture was anchored, under gentle traction. The other 3-0 V Lock suture was then run counter- clockwise from the 4 o clock to the 11 o clock position. While placing the anastomotic sutures the speech pathology assistant moved the tip of urethral Cannon in an out of the urethral stump to prevent suturing of the back wall of the urethra. Both a sutures were tied to each other to complete the anastomosis. All the needles were securely removed. A new 20 F Cannon catheter was introduced and its balloon was in?ated to 20 mL. The bladder was ?lled with 250 mL of saline to test the integrity of the anastomosis. No leakage was noticed. STEP 9; SPECIMEN RETRIEVAL AND CLOSURE A 19 Fr Kurtis-Jarvis drain was placed through the left 8-mm port and was secured to the skin with a #30 Nylon suture. The specimen within the retrieval bag was removed after enlarging the umbilical port incision . The fascia of the incision was then closed with two interrupted sutures of #1 PDS. The skin was closed by 4-0 vicryl, subcuticular sutures and sterilstrips. Patient tolerated the procedure well. EBL :150ml . [facility] 04-23-2023 Note Formatting of this n ote might be different from the original. PRE-PROCEDURE ROUNDING COMPLETE. [facility] 04-23-2023 Note Formatting of this n ote might be different from the original. PRE-PROCEDURE ROUNDING COMPLETE. [facility] 04-20-2023 Telephone encounter Note Images from the original note were not included. Closing encounter. [facility] Work Phone: 04-20-2023 Miscellaneous Notes Images from the original note were not included. Closing encounter. Clearance has been received from Dr. Acuna - It is scanned into MEDIA tab in patients chart. 's office returned call and Brunilda is waiting for signature, when completed she will fax back LVM at Dr. Acuna's office regarding surgery clearance [place] that patient now is a patient of Dr. Acuna This has been sent to Dr. 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 I see it was requested. I just saw the patient in [facility]. He is doing well since his pacemaker placement. I wanted to also let you know he tested positive for MRSA on 04/04/23 (he had an entire panel of labs at [facility]). Please let me know if I can help with the clearance in any way. Thank you! Spoke with pts Nicole - [facility]/Surgery/Follow ups scheduled and information understood Clearance sent to Dr. Nancy Potter [phone] FX: [phone] Booklet Mailed Follow up made ----- Message from Avtar Babin MD sent at 03/29/2023 5:41 PM EST ----- robotic assisted laparoscopic radical prostatectomy and bilateral pelvic lymph node dissection Needs cardiac clearance High risk, schedule RACHEL documented in this encounter [facility] 04-20-2023 Telephone encounter Note Clearance has been received from Dr. Acuna - It is scanned into MEDIA tab in patients chart. [facility] [place] 04-19-2023 Telephone encounter Note 's office returned call and Brunilda is waiting for signature, when completed she will fax back [facility] [place] 04-19-2023 Miscellaneous Notes 's office returned call and Brunilda is waiting for signature, when completed she will fax back LVM at Dr. Acuna's office regarding surgery clearance [place] that patient now is a patient of Dr. Acuna This has been sent to Dr. Acuna PHN: [phone] FAX: [phone] Leon Niño, just checking to see if you have received cardiac clearance from the patient's body and fender mechanic apprentice yet? I see it was requested. I just saw the patient in [facility]. He is doing well since his pacemaker placement. I wanted to also let you know he tested positive for MRSA on 04/04/23 (he had an entire panel of labs at [facility]). Please let me know if I can help with the clearance in any way. Thank you! Spoke with pts Nicole - [facility]/Surgery/Follow ups scheduled and information understood Clearance sent to Dr. Nancy Potter [phone] FX: [phone] Booklet Mailed Follow up made ----- Message from Avtar Babin MD sent at 03/29/2023 5:41 PM EST ----- robotic assisted laparoscopic radical prostatectomy and bilateral pelvic lymph node dissection Needs cardiac clearance High risk, schedule RACHEL documented in this encounter [facility] 04-19-2023 Telephone encounter Note LVM at Dr. Acuna's office regarding surgery clearance [facility] 04-18-2023 Telephone encounter Note [place] that patient now is a patient of Dr. Acuna This has been sent to Dr. Acuna PHN: [phone] FAX: [phone] [facility] 04-18-2023 Miscellaneous Notes [place] that patient now is a patient of Dr. Acuna This has been sent to Dr. Acuna PHN: [phone] FAX: [phone] Leon Niño, just checking to see if you have received cardiac clearance from the patient's body and fender mechanic apprentice yet? I see it was requested. I just saw the patient in [facility]. He is doing well since his pacemaker placement. I wanted to also let you know he tested positive for MRSA on 04/04/23 (he had an entire panel of labs at [facility]). Please let me know if I can help with the clearance in any way. Thank you! Spoke with pts Nicole - PAT/Surgery/Follow ups scheduled and information understood Clearance sent to Dr. Nancy Potter [phone] FX: [phone] Booklet Mailed Follow up made ----- Message from Avtar Babin MD sent at 03/29/2023 5:41 PM EST ----- robotic assisted laparoscopic radical prostatectomy and bilateral pelvic lymph node dissection Needs cardiac clearance High risk, schedule RACHEL documented in this encounter [employer] 04-18-2023 Telephone encounter Note Leon Niño, just checking to see if you have received cardiac clearance from the patient's body and fender mechanic apprentice yet? I see it was requested. I just saw the patient in [facility]. He is doing well since his pacemaker placement. I wanted to also let you know he tested positive for MRSA on 04/04/23 (he had an entire panel of labs at [facility]). Please let me know if I can help with the clearance in any way. Thank you! [employer] Work Phone: 04-18-2023 History and physical note Comprehensive Pre Surgical History and Physical ? Name: Cade Islas : 1945 (Age-78 y.o.) Date of Service: Pt seen/examined on 04/18/2023 Procedure Information Date/Time: 04/23/23 1300 Procedures: ROBOTIC ASSISTED LAPAROSCOPIC PROSTATECTOMY, BILATERAL PELVIC LYMPH NODE DISECTION (Bilateral: Abdomen) ROBOTIC (XI) RETROPERITONEAL LYMPH NODE DISSECTION/BIOPSY WITH BILATERAL TOTAL PELVIS LYMPHADENECTOMY (Bilateral: Abdomen) Location: [facility] OR [address] [place] [address] Operating Room Surgeons: Avtar Babin MD Chief Complaint: Malignant neoplasm of prostate ASSESSMENT/PLAN: Patient is considered high risk for this intermediate level 3 risk procedure/surgery () with no reducible risk factors. Cardiac clearance pending Had +MRSA culture 04/04/23 at [facility] (surgeon's office notified) 1) Malignant neoplasm of prostate - Managed per surgery 2) Hx Afib/ CAD/ HTN/ HLD/ Pacemaker (Placed 2023) Xarelto - was instructed by body and fender mechanic apprentice to hold for 2 days Weekly EKGs and wound check- no pacemaker download until June per body and fender mechanic apprentice office Lipitor Vascepa Lisinopril Sotalol Norvasc Micro-K BP Readings from Last 3 Encounters: 04/18/23 (!) 145/84 Cardiac clearance pending from Dr. Potter(requested by Dr. Babin's office) 3) Diabetes Metformin Semaglutide Gabapentin 4) Depression Elavil Visit Type: Pre-Admission Testing Visit Labs Ordered: YES - PER PAT PROTOCOL Sleep Referral Ordered: NO - NEGATIVE SCREEN PER SLEEP REFERRAL PROTOCOL Total time spent (which include face to face and non face to face encounters) : 45 minutes Toxic drug monitoring/narrow therapeutic index drug monitoring : # Drug name : multiple # Route administered : oral # Method of monitoring : labs/ ekg PAT Protocol referenced includes: 1. Anesthesia Lab Protocol Orders 2. Perioperative Cardiovascular Risk Assessment 3. Anesthesia Assessment 4. Pain Assessment and Acute Pain Service Consult (if appropriate) 5. Medical Clearance/Consult from Internal Medicine ([facility]) 6. Shower/Wash Order (for designated surgeries) 7. YEISON Screen and Sleep Clinic Referral (if appropriate) History Of Present Illness: 78 y.o. male who we are asked to see/evaluate by Dr. Babin for pre-operative evaluation prior to above procedure. ? Denies history of TN, CAD, CHF, TIA, CVA Past Medical History: Past Medical History: No date: Diabetes (HCC) No date: GERD (gastroesophageal reflux disease) No date: History of chronic atrial fibrillation No date: Hyperlipidemia No date: Hypertension No date: Hypothyroidism No date: Pacemaker No date: Thrombocytopenia (HCC) Past Surgical History: Past Surgical History: No date: ATRIAL CARDIAC PACEMAKER INSERTION No date: CHOLECYSTECTOMY No date: PACEMAKER (HISTORICAL) No date: SPINAL CORD STIMULATOR IMPLANT Medications Prior to Admission: Prior to Admission medications Medication Sig Start Date End Date Taking? Authorizing Provider amitriptyline (Elavil) 100 MG tablet 03/02/23 Historical Provider, amLODIPine (Norvasc) 5 MG tablet 10/09/22 Historical Provider, atorvastatin (Lipitor) 10 MG tablet 03/09/23 Historical Provider, fluticasone (Flonase) 50 MCG/ACT nasal spray 08/03/22 Historical Provider, gabapentin (Neurontin) 600 MG tablet 02/19/23 Historical Provider, HYDROcodone-acetaminophen ([place]) 7.5-325 MG tablet 03/02/23 Historical Provider, levothyroxine (Synthroid, Levoxyl) 50 MCG tablet 12/11/22 Historical Provider, lisinopril 40 MG tablet 03/27/23 Historical Provider, metFORMIN XR (Glucophage-XR) 500 MG 24 hr tablet 03/20/23 Historical Provider, omeprazole (PriLOSEC) [address] capsule 03/01/23 Historical Provider, potassium chloride ER (Micro-K) 10 MEQ ER capsule 01/14/23 Historical Provider, Semaglutide, 2 MG/DOSE, (Ozempic, 2 MG/DOSE,) 8 MG/3ML solution pen-injector Inject under the skin. 05/24/22 Historical Provider, tamsulosin (Flomax) 0.4 MG 24 hr capsule 02/16/23 Historical Provider, Vascepa 1 g capsule 12/11/22 Historical Provider, Xarelto 20 MG tablet 11/11/22 Historical Provider, CHRONIC NARCOTIC USE: No Allergies: Patient has no known allergies. If patient has opioid allergy, is it okay to take Acetaminophen: Yes Social History: TOBACCO: reports that he has never smoked. He has never used smokeless tobacco. ETOH: reports that he does not currently use alcohol. Social History Substance and Sexual Activity Drug Use Never Family History: No family history on file. REVIEW OF SYSTEMS: Review of Systems Constitutional: Negative for chills and fever. HENT: Negative for congestion and trouble swallowing. Respiratory: Negative for cough and shortness of breath. Cardiovascular: Negative for chest pain and leg swelling. Gastrointestinal: Negative for abdominal pain, nausea and vomiting. Skin: Negative for rash. Neurological: Negative for weakness and headaches. Physical Exam: Physical Exam Constitutional: Appearance: Normal appearance. HENT: Head: Normocephalic and atraumatic. Mouth/Throat: Mouth: Mucous membranes are moist. Pharynx: Oropharynx is clear. Eyes: Pupils: Pupils are equal, round, and reactive to light. Cardiovascular: Rate and Rhythm: Normal rate. Pulmonary: Effort: Pulmonary effort is normal. Breath sounds: Normal breath sounds. Musculoskeletal: General: Normal range of motion. Cervical back: Normal range of motion. Skin: General: Skin is warm and dry. Capillary Refill: Capillary refill takes less than 2 seconds. Neurological: General: No focal deficit present. Mental Status: He is alert and oriented to person, place, and time. Psychiatric: Mood and Affect: Mood normal. Behavior: Behavior normal. Vitals: Vitals Value Taken Time BP 145/84 04/18/23 1532 Temp 35.8 C (96.4 F) 04/18/23 1532 Pulse 68 04/18/23 1532 Resp 18 04/18/23 1532 SpO2 98 % 04/18/23 1532 Labs: Collected 04/04/23- in care everywhere [facility] Cardiac Risk Index: [facility]ICK'S SIMPLE CARDIAC RISK SCORE: 3 Interpretation: 0 Points Class I 0.5% 1 Point Class II 1.3% 2 Points Class III 3.6% 3+ Points Class IV 9.1% PAT Pain Score: Postop Pain Management Plan (Pain consult ordered?): Pain consult not indicated at this time ? EKG: Impression Performed by [facility] AV dual-paced rhythm with prolonged AV conduction Abnormal ECG When compared with ECG of 06-APR-2023 12:33, Ventricular pacing is now present. Confirmed by YOGESH ACUNA MD ([id number]) on 04/10/2023 10:14:47 AM Narrative Performed by [facility] NAME : CADE ISLAS PID : [id number] : 1945 Gender : Male Race : ORD : [id number] Procedure Date : Apr 09 2023 10:30:39 Edit Date : Apr 10 2023 10:14:49 Diagnosis: AV dual-paced rhythm with prolonged AV conduction Abnormal ECG When compared with ECG of 06-APR-2023 12:33, Ventricular pacing is now present. Confirmed by YOGESH ACUNA MD ([id number]) on 04/10/2023 10:14:47 AM ECHO and EF:Echo 02/21/2023 Heart rate 60 bpm Blood pressure 147/81 mmHg Color Doppler was utilized to interrogate the cardiac valves assessed and spectral Doppler was utilized to determine the flow velocities and pressure gradients reported in this exam. MEASUREMENTS: Value Indexed Normal Max aortic dimension 3.6 cm Ao < 3.8 Left atrial volume 41 ml (biplane A-L) 19 ml/m Nadja <= 34 LV stroke volume 47 ml (2D 4-ch.) LVOT stroke volume 99 ml 46 ml/m LV end diastolic volume 75 ml (2D 4-ch.) 34.2 ml/m 34<=EDVi<75 LV end systolic volume 28 ml (2D 4-ch.) 12.7 ml/m Ejection Fraction 63 % (2D 4-ch.) EF > 52 FINDINGS: LEFT VENTRICLE The left ventricle is normal in size. Left ventricular systolic function is normal. Indeterminate left ventricular diastolic dysfunction. Mitral annular lateral E/e': 9.5. Mitral annular septal E/e': 10.9. Wall Motion: All scored segments are normal. RIGHT VENTRICLE The right ventricle is normal in size. Right ventricular systolic function is normal. Tricuspid annular displacement is 2.4 cm. Estimated right ventricular systolic pressure is 15 mmHg consistent with normal pulmonary artery pressures. Estimated right atrial pressure is 3 mmHg based on IVC assessment. LEFT ATRIUM The left atrial cavity is normal in size. RIGHT ATRIUM The right atrial cavity is normal in size. Inferior Vena Cava: The inferior vena cava appears normal measuring 1.7 cm. The vessel decreases greater than 50 percent with inspiration. MITRAL VALVE The mitral valve leaflets are structurally normal. There is no mitral stenosis. There is no mitral valve regurgitation. There is mild thickening. There is mild calcification. The peak mitral valve gradient is 5 mmHg. The mean mitral valve gradient is 1 mmHg. The pressure half time is 63 msec. The peak mitral E/A ratio is 0.87. The average mitral E/e' ratio is 10.2. The mitral flow deceleration time is 217 msec. TRICUSPID VALVE The tricuspid valve leaflets are structurally normal. There is no tricuspid stenosis. There is no tricuspid valve regurgitation. There is no thickening. AORTIC VALVE There is no aortic valve stenosis. There is trace aortic valve regurgitation. Tricuspid aortic valve. There is mild thickening. There is mild calcification. The peak gradient is 14 mmHg (peak velocity = 188.0 cm/s). The mean gradient is 7 mmHg. The LVOT mean velocity is 101.0 cm/s. The LVOT diameter is 2.0 cm. The aortic VTI is 34.6 cm. The mean velocity in the aortic valve is 125.0 cm/s. The dimensionless valve index is 0.91. AV area is 2.86 cm (1.31 cm /m ) by continuity, VTI. The LVOT stroke volume index is 46 ml/m . PULMONIC VALVE The pulmonic valve cusps are structurally normal. There is no pulmonic stenosis. There is trace pulmonic valve regurgitation. There is no thickening. The peak gradient is 5 mmHg. AORTA The visualized aorta is normal in size. Measurements - Sinus: 3.5 cm. Sinotubular junction 3.4 cm. Mid ascending aorta 3.6 cm. PULMONARY ARTERIES The pulmonary arteries are normal. PERICARDIUM The pericardium is normal. Specimen Collected: 02/21/23 07:58 METS >4 Electronically signed by: Lalita Salazar APRN - EPIC AMBULATORY ANALYST Date: 04/18/2023 at 4:10 PM [facility] [employer] [facility] Work Phone: 04-03-2023 Telephone encounter Note Spoke with pts Nicole TILLEY/Surgery/Follow ups scheduled and information understood Clearance sent to Dr. Nancy Potter [phone] FX: [phone] Booklet Mailed Follow up made [facility] [employer] [facility] 04-03-2023 Telephone encounter Note ----- Message from Avtar Babin MD sent at 03/29/2023 5:41 PM EST ----- robotic assisted laparoscopic radical prostatectomy and bilateral pelvic lymph node dissection Needs cardiac clearance High risk, schedule RACHEL [facility] 04-03-2023 Miscellaneous Notes Spoke with pts Nicole - PAT/Surgery/Follow ups scheduled and information understood Clearance sent to Dr. Nancy Potter [phone] FX: [phone] Booklet Mailed Follow up made ----- Message from Avtar Babin MD sent at 03/29/2023 5:41 PM EST ----- robotic assisted laparoscopic radical prostatectomy and bilateral pelvic lymph node dissection Needs cardiac clearance High risk, schedule RACHEL documented in this encounter [facility] 03-29-2023 History of Present illness Narrative Images from the original note were not included. Avtar Babin MD 03/29/2023 at 5:41 PM UROLOGY INITIAL OFFICE VISIT PATIENT NAME: Cade Islas DATE OF : 1945 TODAY'S DATE: 03/29/2023 Chief Complaint: Chief Complaint Patient presents with Consult Prostate CA conference HISTORY OF PRESENT ILLNESS: Mr. Islas is a 78 y.o. male who presents with prostate cancer Patient has been diagnosed with high risk prostate cancer by Dr Farah Metastatic work up has been negative He has discussed and considered surgical options, he does wish to proceed with robotic assisted laparoscopic radical prostatectomy and bilateral pelvic lymph node dissection He comes in today with his for conference to review further Despite very large prostate he does report good stream, denies urinary urgency or frequency REVIEW OF SYSTEMS: Review of Systems Constitutional: Negative for activity change, chills and fever. Gastrointestinal: Negative for abdominal distention and abdominal pain. Genitourinary: Negative for decreased urine volume, difficulty urinating, flank pain, hematuria and urgency. Past Medical History: No past medical history on file. Past Surgical History: No past surgical history on file. Current Medications: Prior to Admission medications Medication Sig Start Date End Date Taking? Authorizing Provider amitriptyline (Elavil) 100 MG tablet 03/02/23 Yes Historical Provider, amLODIPine (Norvasc) 5 MG tablet 10/09/22 Yes Historical Provider, atorvastatin (Lipitor) 10 MG tablet 03/09/23 Yes Historical Provider, fluticasone (Flonase) 50 MCG/ACT nasal spray 08/03/22 Yes Historical Provider, gabapentin (Neurontin) 600 MG tablet 02/19/23 Yes Historical Provider, HYDROcodone-acetaminophen ([place]) 7.5-325 MG tablet 03/02/23 Yes Historical Provider, levothyroxine (Synthroid, Levoxyl) 50 MCG tablet 12/11/22 Yes Historical Provider, lisinopril 40 MG tablet 03/27/23 Yes Historical Provider, metFORMIN XR (Glucophage-XR) 500 MG 24 hr tablet 03/20/23 Yes Historical Provider, omeprazole (PriLOSEC) [address] capsule 03/01/23 Yes Historical Provider, potassium chloride ER (Micro-K) 10 MEQ ER capsule 01/14/23 Yes Historical Provider, Semaglutide, 2 MG/DOSE, (Ozempic, 2 MG/DOSE,) 8 MG/3ML solution pen-injector Inject under the skin. 05/24/22 Yes Historical Provider, tamsulosin (Flomax) 0.4 MG 24 hr capsule 02/16/23 Yes Historical Provider, Vascepa 1 g capsule 12/11/22 Yes Historical Provider, Xarelto 20 MG tablet 11/11/22 Yes Historical Provider, Allergies: Patient has no known allergies. Social History: Social History Socioeconomic History Marital status: Spouse name: Not on file Number of children: Not on file Years of education: Not on file Highest education level: Not on file Occupational History Not on file Tobacco Use Smoking status: Not on file Smokeless tobacco: Not on file Substance and Sexual Activity Alcohol use: Not on file Drug use: Not on file Sexual activity: Not on file Other Topics Concern Not on file Social History Narrative Not on file Social Determinants of Health Financial Resource Strain: Not on file Food Insecurity: Not on file Transportation Needs: Not on file Physical Activity: Not on file Stress: Not on file Social Connections: Not on file Intimate Partner Violence: Not on file Housing Stability: Not on file Family History: @FAMXNH@ PHYSICAL EXAM: VITALS: Ht 5' 8 (1.727 m) Wt 205 lb (93 kg) BMI 31.17 kg/m Physical Exam DATA: WBC No results found for: WBC BMP No results found for: NA, K, CL, CO2, BUN, CREATININE, GLUCOSE, CALCIUM PSA No results found for: PSA UANo results found for: APPEARANCE, COLORU, LABSPEC, LABPH, URINE, GLUCOSEU, UROBILINOGEN, BILIRUBINUR, OCBU Review: Records reviewed from [facility] PSA 01/15 5.14 Pathology Umpire 8 in 1 core, Beau 9 in 3 cores all right side Volume 99grams Patient has had discussion of his treatment options in his previous visit with Dr Farah, and he has his decision made for robotic prostatectomy. Today, we discussed the Umpire score, number and percent of cores involved with disease, the D'Garrett risk stratification criteria which are based upon the Umpire score, PSA, and clinical T stage. Based upon the clinical features the patient falls into high risk category for 10 year biochemical disease free survival regardless of which therapeutic modality he chooses. He understands that there is a small, but real, chance of occult metastatic disease and therefore, we discussed the role of a Gadolinium MRI of the pelvis to potentially assess the local extent of his disease as well as a total body bone scan. These modalities have a low yield in his particular clinical situation. We discussed options for management of his disease including watchful waiting, active surveillance, LHRH analogue therapy and surgical extirpation including open, laparoscopic, and robotic. We also discussed radiation therapy; external beam, and out patient brachytherapy as well as the attendant procedure related morbidity as it relates to the low but known risk of senior care urinary frequency, urgency, urgency with bowel movements and risk of urethral radiation injury. We also discussed time commitment for the external beam therapy being once a day, five days a week for 5-7 weeks during which most people can continue normal daily activities. I also mentioned the experimental Cyber Knife therapy. We discussed the time frame for PSA response that would indicate efficacy of the radiation therapy. Additionally, we discussed cryosurgical ablation of the prostate (with without nerve sparing). We also discussed the outpatient nature of the procedure, lack of need for pain medication and the need for a urinary catheter for 2-weeks following the procedure and the time frame of PSA response that would reflect the efficacy of the cryosurgical procedure and the follow up that would be involved. Finally, with respect to the cryosurgical procedure we discussed that to date we do not have senior care (10-year) outcomes data. With respect to surgical intervention we discussed the procedure related morbidity, hospitalization, and convalescence period. We have reviewed the recent data about robotic prostatectomy. I told him that I am fellowship trained in robotic urologic surgery and urologic oncology. I explained that I perform Robotic Prostatectomy by [facility]ctomy [facility]. I explained the procedure and the expected post op course. The following is the summary of the information I gave him about Post-op recovery and Complications: Ninety-eight percent of robotic prostatectomy patients are able to go home the day after surgery. The major advantages of the robotic prostatectomy are decreased bleeding and decreased pain, which result in easier recuperation. Thus, most individuals undergoing this operation will be able to resume normal activities within one to two weeks after surgery. However, each individual heals at his own rate. You should listen to your body, and do what it tells you do to. You will be given two weeks' disability after the robotic prostatectomy. Long-term disability is not necessary after this procedure since complications are rare. Any further time off will be given only if medically necessary. Additional disability will be determined on a [id number] basis. Less than 1% of the patients have complication requiring any additional procedure like control of bleeding, drainage of collection, repair of intestine or hernia. Discharge from Hospital If your surgery goes without complications, as is true in more than 98 percent of our cases, you will be discharged from the hospital in 24 hours. Urinary Catheter When the prostate is removed, the bladder is disconnected from the urethra or urinary channel. After surgery, the bladder is reconnected to the urethra with fine sutures. A tube or catheter is inserted for seven to 14 days as you heal. Rarely (in 7 out of 1,000 cases), the catheter may need to be reinserted for a few a days. Urinary Control Our most recent results show that 50 percent of men have full urinary control and do not need pads within 24 hours after catheter removal. The rest of our patients may take up to four weeks to get full urinary control. A few patients will leak urine during heavy physical activity. Less than 2% patients require additional procedure like sling or artificial urinary sphincter at the end on 1 year. Sexual Function Even when the nerves are preserved, it takes time for them to heal and function. We have found that it takes most men 9-12 months before normal erections return although many men have partial erections before that. With conventional surgery, if you are below 60 years of age and have normal sexual function (Sexual Health Inventory for Men Score of 25, no medications), there is a 75 to 80 percent chance you will be able to resume sexual intercourse within 12 months. However, the quality of your erections may not be the same. With a robotic prostatectomy, one-third of patients that fit this criteria resume sexual intercourse within 12-24 weeks after surgery. You have a have aggressive cancer, we will attempt to preserve the major erectile nerves, but in order to give you a good cancer operation we may have to take one or both of your nerves, this may cause a significant erectile dysfunction. A nerve-sparing operation is not 100 percent successful in recovery of Sexual Function, Unfortunately, There are emotional, psychological and physical components to sexual functioning and all of them are affected by the diagnosis and treatment of cancer. Whether you have hormones, radiation or surgery, there is often a change in sexual function. There are three physical factors that are involved in penile erection - the nerves, the blood vessels and the muscle. With any of the treatments all three components are affected. Preserving the nerves saves one, perhaps the most important component of the three, but not all three. In order to improve your chances of maintaining erectile function, We offer an inter-disciplinary clinic that will work with you and your partner, before and after surgery, if you are interested. We will explore and attempt to preserve the emotional as well as the physical components (nerves, blood vessels and muscle). Permanent Effect All patients undergoing radical prostatectomy will be rendered sterile (i.e., will not be able to father children) after the procedure. Cancer Cure Conventional prostatectomy results in very good cancer cure rates. However, the completeness of cancer removal may be higher for some patients who have the robotic prostatectomy. Patient verbalized the understanding of above. On this date, 03/29/23 , I have spent 45 minutes reviewing previous notes, test results and face to face with the patient discussing the diagnosis and importance of compliance with the treatment plan as well as documenting on the day of the visit Assessment and Plan Diagnoses and all orders for this visit: Prostate cancer (HCC) Elevated PSA, less than 10 ng/ml Benign prostatic hyperplasia without lower urinary tract symptoms High risk prostate cancer Presented options of EBRT plus 2 years ADT vs RALP He is very adamant that he would like prostatectomy, despite being above an age this would typically be recommended Will schedule this, and need cardiac clearance No follow-ups on file. Avtar Babin MD 03/29/23 5:41 PM documented in this encounter [facility] 2023 Telephone encounter Note Pt called back in inquiring about better directions unable to find [address] today. Provided with directions of the building location. [facility] 2023 Miscellaneous Notes Pt called back in inquiring about better directions unable to find [address] today[address] Provided with directions of the building location. Spoke to and r/s appt since it is changed to a cancer conference. R/s to 03/29/[address] Babin Called patient back LVM to return a call to our office. Per DEMETRIA need to change appt time from 20 min appt to a 30 min appt for a conference meeting. Patient has a hx of prostate cancer. Umpire 9 grade group 5. PSA 5.14 01/15. 99cc prostate. Bone scan and CT negative for metastatic disease. 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 Please tell patient he needs to have a more recent PSA prior to his OV with Dr. Babin. No need for sooner appoinment if that's the soonest one. Please make sure that this appoinment is a cancer conference spot, if not please change to cancer conference slot so that there is adequate time to discuss options for treatment. Pt called in to schedule an appt referred to DR Babin for prostate cancer. Checked avail appt made an appt for first avail 04/19/23 DR Babin. Referral uploaded onto chart. New patient packet sent to patient. Sending message to DEMETRIA pool recommended by Rani to check and advise if pt should be seen sooner after review of chart referral information. documented in this encounter [facility] 03-13-2023 Telephone encounter Note Spoke to and r/s appt since it is changed to a cancer conference. R/s to 03/29/[address] Babin [facility] 03-13-2023 Miscellaneous Notes Spoke to and r/s appt since it is changed to a cancer conference. R/s to 03/29/[address] Babin Called patient back LVM to return a call to our office. Per DEMETRIA need to change appt time from 20 min appt to a 30 min appt for a conference meeting. Patient has a hx of prostate cancer. Beau 9 grade group 5. PSA 5.14 01/15. 99cc prostate. Bone scan and CT negative for metastatic disease. 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 Please tell patient he needs to have a more recent PSA prior to his OV with Dr. Babin. No need for sooner appoinment if that's the soonest one. Please make sure that this appoinment is a cancer conference spot, if not please change to cancer conference slot so that there is adequate time to discuss options for treatment. Pt called in to schedule an appt referred to DR Babin for prostate cancer. Checked avail appt made an appt for first avail 04/19/23 DR Babin. Referral uploaded onto chart. New patient packet sent to patient. Sending message to DEMETRIA pool recommended by Rani to check and advise if pt should be seen sooner after review of chart referral information. documented in this encounter [facility] 03-13-2023 Telephone encounter Note Called patient back M to return a call to our office. Per DEMETRIA need to change appt time from 20 min appt to a 30 min appt for a conference meeting. [facility] 03-12-2023 Telephone encounter Note Patient has a hx of prostate cancer. Beau 9 grade group 5. PSA 5.14 01/15. 99cc prostate. Bone scan and CT negative for metastatic disease. 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 Please tell patient he needs to have a more recent PSA prior to his OV with Dr. Babin. No need for sooner appoinment if that's the soonest one. Please make sure that this appoinment is a cancer conference spot, if not please change to cancer conference slot so that there is adequate time to discuss options for treatment. [facility] 03-12-2023 Telephone encounter Note Pt called in to schedule an appt referred to DR Babin for prostate cancer. Checked avail appt made an appt for first avail 04/19/23 DR Babin. Referral uploaded onto chart. New patient packet sent to patient. Sending message to [facility] pool recommended by Rani to check and advise if pt should be seen sooner after review of chart referral information. [facility] 03-02-2023 Chad Bird APRN.CNP - 03/02/2023 11:09 AM EST Images from the original note were not included. Frequently Asked Questions: How common are lung nodules? Nodules are found in up to half of adults who get a chest x-ray or CT scan. Do nodules cause any symptoms? In general, small nodules don t cause any noticeable problems. They re too small to cause pain or breathing problems. Should I worry that I have a nodule? 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 Your doctor can tell if your nodule is lung cancer by: Seeing how it looks on the CT scan. Seeing whether it grows over time. A nodule that grows larger over time is a sign that it could be a cancer. Taking a sample of the nodule with a needle or surgery. Most people with a nodule will NOT need to have this test. What is the chance that the nodule is an early lung cancer? Fewer than 5% of all nodules turner splitter machine operator to be cancer What if my nodule is lung cancer? Even if a nodule turns out to be lung cancer, it is likely to be an early stage lung cancer. People with early stage lung cancer that is treated are less likely to than people who are diagnosed at a later stage when the cancer has started to cause symptoms. What will happen next? Your healthcare team will probably recommend getting more CT scans to keep a close eye on the nodule to see if it changes. We call this active surveillance. ? If a nodule is not cancer, it usually won t grow. If the nodule doesn t grow over a 2-year period, it is very unlikely to be cancer. Most of the time, it is safe to stop watching nodules if there is no growth over a 2-year period. ? On the other hand, if the nodule is getting bigger, it should be looked at more closely to see if it is lung cancer. Nodules can be viewed more closely using different radiology studies or by biopsy (using a needle or surgery to take a sample of the nodule to look at under a microscope). Your healthcare team will determine which is best for you. Why shouldn t I get a biopsy now? ? A biopsy means removing a piece of your lung in order to look at it under a microscope. Biopsies are usually not recommended when nodules are small because it is very difficult to biopsy them safely. ? Doing a biopsy when a nodule is small can cause harm such as collapse of the lung, bleeding, or infection. Is it really safe to wait for the next CT scan? Most cancers grow fairly slowly, and it takes several months for them to get bigger. So even if the nodule is lung cancer, it will likely still be small in a few months. Even if the nodule is lung cancer that is growing, there is a very good chance that surgery or radiation will cure you. Waiting a few months for the next CT scan is very safe and should not affect the treatment you receive or your chances for cure if the nodule turns out to be cancer. How does my clinician decide when to do the next CT scan? There are several guidelines for how to decide when to get the next CT scan. These guidelines are based on the chance the nodule is lung cancer and how big the nodule might be at the time of the next scan. Your healthcare provider will determine the best time for your next CT scan based on these guidelines. Your healthcare provider may choose to discuss the CT results with other specialists to determine the best plan for you. What if I m a smoker? Quitting now will decrease your chance of getting lung cancer in the future, as well as many other serious health problems like emphysema and heart disease. Some people think that if they already have lung cancer, they might as well keep smoking. THAT IS WRONG. Plan for follow-up: Repeat imaging at 3-6 months from initial scan. documented in this encounter [facility] 03-02-2023 History of Present illness Narrative Images from the original note were not included. [facility] INCIDENTAL LUNG NODULE PROGRAM Impression / Recommendations 1. Lung nodules Due to current prostate cancer diagnosis and lung nodules at least 6 mm in size, recommend 3-[address] Chest[address] If urology plans to do a PET scan in the interim they are to let me know and we will obtain those CT images for comparison. Pt has appt today with urologist. - CT CHEST WO IVCON; Future 2. Prostate cancer Continue care with urology Dr. Farah Incidental Lung Nodule Follow Up Concern for New Cancer Diagnosis: No Recommendation: CT Scan Follow up Date: 06/01/2023 Lung Nodule Follow-Up Scheduled: Yes Enrolled in Lung Nodule program: Yes Lung Nodule Program Location: [place] Medical Decision Making: Problems: Moderate: New problem with uncertain prognosis Data: Unique test result(s) reviewed: 2 Unique test(s) ordered: 1 Independent interpretation of test [facility] Decision Making Level: 4 - Moderate Requesting Provider Nir Le MD Reason for the Consult Cade Islas presents today for consultation / opinion regarding lung nodule(s). My impression and final recommendations will be communicated back to the requesting physician by way of shared medical record or letter via US mail. History of Present Illness Cade Islas is a 77 year old male Never smoker of cigarettes, smoked a pipe for 2 weeks, with a past medical history significant for prostate cancer, A fib, CKD, and DM who is being seen as a new consultation for evaluation of a lung nodule(s). He is accompanied by his . Gamaliel presented to ED 02/06/2023 with pain, he reports his gallbladder had twisted and due to lack of blood flow. He had a drain for 2 weeks. He is still improving. He had a CTA Chest as part of the workup in ED. He saw his primary care who ordered a Low Dose CT Lung Screening for dx of lung nodules. The patient has never smoked a cigarette ever. Therefore he is not eligible for Low Dose CT Lung Screening. There were multiple nodules on his CTA Chest although the findings are not specific: Lung parenchyma, pleural space and airways: Minimal dependent bibasilar atelectasis. Scattered areas of minimal air trapping noted. There are a few scattered bilateral subcentimeter lung nodules which are nonspecific. No definite pleural effusions. No pneumothorax. Patent central airways. Pt has recently been diagnosed with aggressive prostate cancer. He reports PSA level has been monitored for years. 5 mos ago it significantly elevated. He had a biopsy of prostate and x3 came back grade 9. Plan for treatment is surgery. No PET scan or CT Chest has been done. He had a bone scan and CT abdomen/pelvis done at [facility]. 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 Lung Nodule(s) Characteristics Date of imaging study: 02/06/2023 Type of imaging study: CTA Chest Nodule detection: Incidentally Number of nodules: 5 Size of most concerning nodule: 6mm Density of most concerning nodule: Solid Border of most concerning nodule: Irregular Location of most concerning nodule: Left lower lobe Has the patient had prior chest imaging? Yes What type of prior imaging? CT Scan Neck Was the nodule of concern seen on prior imaging? No-RUL nodule on slice 64 was seen on [address] CT Neck 2007. Clinical Risk Factors: Tobacco Use: Never Does the patient have a prior history malignancy? Yes: Prostate Does the patient have COPD/Emphysema? No Does the patient have a family history of lung cancer? No MGM cancer not sure what type, opened chest and closed it back up Patient denies SOB with their daily activity. No wheezing or dyspnea. Patient denies feeling of chest tightness/congestion in the chest. Patient does not have a new or concerning cough, and denies hemoptysis. Patient does not have a chronic daily cough. Denies regular or recent fevers/chills. Patient denies having any respiratory infections or COVID-19 in the past few months. Has lost weight with gallbladder infection. Also, was on Ozempic for diabetes, started it 2 years ago. Last 12 Encounter Wt Readings: Date: Wt: 03/02/2023 92.1 kg (203 lb) 02/22/2023 94.4 kg (208 lb 3.2 oz) 02/06/2023 99.8 kg (220 lb 1.6 oz) 07/05/2022 93 kg (205 lb) Initial estimation of malignancy based on size was: Low (<=8 mm) Malignancy Risk ([facility] model) Lung Nodule Calculator: (if applicable) 4% risk of malignancy. This does not take into account current prostate cancer diagnosis. 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 Family History FAMILY HISTORY Problem Relation Age of Onset No Known Problems Brother Cancer Maternal Grandmother Social History Social History Tobacco Use Smoking status: Never Passive exposure: Never Smokeless tobacco: Never Vaping Use Vaping Use: Never used Substance Use Topics Alcohol use: Never Drug use: Never Review of Systems see HPI The remainder of the ROS is negative. Physical Exam Pulse 67 Ht 172.7 cm (5' 8) Wt 92.1 kg (203 lb) SpO2 95% BMI 30.87 kg/m General Appearance: Well appearing, alert, in no acute distress, well-hydrated, well nourished.. Neck: Supple, no adenopathy; thyroid symmetric, normal size Lungs: Lungs clear to auscultation. No wheezing, rhonchi, rales.. Heart: RRR without murmur, gallop, or rubs. No ectopy. Neurologic: Oriented X 3. Diagnostic Data I have personally visualized, reviewed and analyzed the findings on pulmonary function testing and radiographs. stable RUL nodule RUL nodule Right fissural nodule 8.5 x 6.[address] Last CT/CTA Chest/Lungs CTA CHEST (GATED) WO/W IVCON Exam End: 02/06/2023 7:13 PM (Final result) Narrative: * * *Final Report* * * DATE OF EXAM: Feb 06 2023 7:13PM [facility] 0126 - CTA CHEST (GATED) WO/W IVCON / PROCEDURE REASON: Aortic dissection suspected * * * * Physician Interpretation * * * * EXAMINATION: CTA CHEST (GATED) WO/W IVCON, CTA ABD/PEL W IVCON Exam Date/Time: 02/06/2023 7:13 PM CLINICAL HISTORY: Aortic dissection suspected TECHNIQUE: Axial CT images of the chest obtained without IV contrast. Cardiac gated post IV contrast arterial phase helical scanning of the chest, abdomen and pelvis. Postcontrast arterial phase source images reviewed on an independent 3-D workstation. Multiple MIP images also generated and reviewed. Contrast: IV: 100 ml of Isovue 370 : ml of Dose-Length Product (DLP) for this visit: 1768.46 mGy*cm CT Dose Reduction Employed: Automated exposure control(AEC) and iterative recon COMPARISON: No available prior RESULT: VASCULAR: Unenhanced images of the chest show no evidence for acute intramural hematoma along the included portions of the aorta. Postcontrast images disclose borderline ectasia of the ascending aorta measuring 4.0 cm. The remainder of the thoracic aorta is normal caliber. No evidence for focal stricture, intimal dissection flap or other suspicious filling defect. No periaortic abnormality. The arch vessels are patent and normal caliber with conventional branch vessel anatomy. No pulmonary embolism detected. Normal caliber abdominal aorta with mild/moderate aortoiliac atherosclerotic disease.. No evidence for significant stenosis or intimal dissection flap. No periaortic abnormalities. The celiac trunk and its distal branches, the SMA, bilateral renal arteries and right accessory renal artery, GONZALEZ and visualized bilateral iliofemoral vessels are patent and normal caliber. CHEST: Lower neck, heart/mediastinum: Heart is within normal size limits. Very minimal pericardial effusion. No acute or suspicious mediastinal abnormality. Lymph nodes: No evidence for thoracic lymphadenopathy, by size criteria. Lung parenchyma, pleural space and airways: Minimal dependent bibasilar atelectasis. Scattered areas of minimal air trapping noted. There are a few scattered bilateral subcentimeter lung nodules which are nonspecific. No definite pleural effusions. No pneumothorax. Patent central airways. ABDOMEN/PELVIS: Liver: Diffuse fatty infiltration of the liver with coexisting morphologic changes chronic liver disease/cirrhosis. Borderline hepatomegaly measuring 19 cm in the coronal plane. No distinct hepatic lesion.. Biliary: Gallbladder is distended measuring 5.9 cm with vague pericholecystic stranding. There are a few small calcified gallstones present including near the gallbladder neck. No pericholecystic fluid. No biliary duct dilatation. Spleen: Borderline splenomegaly measuring 14.5 cm in the coronal plane. Pancreas: Unremarkable. Adrenal glands: Unremarkable. Kidneys: Probably benign 1.5 cm right interpolar renal cyst. 2.6 cm right lower pole cyst is incompletely characterized and statistically probably represents a complex hemorrhagic/proteinaceous cyst. There are additional subcentimeter bilateral cortical renal cysts which are too small to reliably characterize. Recommend attention on follow-up. Small nonobstructing left renal stones.. No enhancing mass or hydronephrosis. Lymph nodes: No abdominopelvic lymphadenopathy, by size criteria. Mesentry/Peritoneum/Retroperitoneu m: No ascites, pneumoperitoneum or suspicious mass. GI tract: No dilation or wall thickening. Normal appendix. Scattered colonic diverticulosis without evidence for pericolonic inflammatory changes or acute diverticulitis. Pelvis: No free pelvic fluid or pelvic mass. Bladder unremarkable. Prostate gland is significantly enlarged measuring 7.4 cm craniocaudal by 6.0 cm transverse by 5.8 cm AP. Soft Tissues/Bones: No acute findings. Generalized osteopenia. Thoracolumbar spondylosis with ankylosing changes in the thoracic spine. Moderate bilateral hip DJD. Degenerative changes also noted in bilateral shoulders. Mild bilateral gynecomastia. Small fat-containing umbilical hernia. Stimulating device in the left supragluteal region with leads extending to the stimulating electrode in the lower thoracic spine. Impression: IMPRESSION: No aortic dissection or acute CTA abnormality. 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 Cholelithiasis with gallbladder distention and several pericholecystic fat stranding. Findings concerning for ACUTE CHOLECYSTITIS. Recommend clinical correlation and surgical consultation. Marked prostatomegaly. Morphologic changes of chronic liver disease/cirrhosis with coexisting hepatic steatosis. No discrete hepatic mass. Consideration could be made for HCC screening with nonemergent liver MRI. Scattered subcentimeter bilateral lung nodules, nonspecific. Recommend follow-up chest CT, per risk factor stratification. Senior Pl Sql Developer: [facility] Transcribe Date/Time: Feb 06 2023 8:14P Dictated by : NANCY SIMMONS MD This examination was interpreted and the report reviewed and electronically signed by: NANCY SIMMONS MD on Feb 06 2023 8:39PM EST Last Spirometry No resulted procedures found. 6MWT: INR Date Value Ref Range Status 04/12/2022 1.1 0.9 - 1.3 Final Comment: Vitamin K Antagonist (VKA) Therapeutic Range: INR 2 to 3 (Target INR of 2.5) Note: For patients treated with VKA drugs, such as warfarin, the [place] [employer] 2012 Guideline recommends a therapeutic INR range of 2 to 3 (target INR of 2.5). This recommendation includes high-risk patients with antiphospholipid syndrome with previous arterial or venous thromboembolism, current-generation mechanical or bioprosthetic aortic heart valve replacement. Note: Patients with mechanical aortic valve replacement and additional risk factors for thromboembolic events (atrial fibrillation, previous thromboembolism, LV dysfunction, hypercoagulable conditions) or an older generation mechanical AVR (i.e., ball in-Cage) or any mechanical MVR should have a INR therapeutic range of 2.5 to 3.5 (target INR of 3). Mahesh GH, et al. Chest 2012, 141:7S-47S Ishmael RA, et al. JACC 2017, 70: 252-289 Impression / Recommendations To optimize physician communication via the electronic health record, the Impression & Recommendations section has been placed at the beginning of this note. ----- Chad Davis APRN.[facility] Pulmonary & Critical Care Medicine [facility] [place] March 02, 2023 10:39 AM documented in this encounter [facility] 02-22-2023 History of Present illness Narrative Images from the original note were not included. [facility] PRIMARY CARE PHYSICIAN: Nir Le MD Subjective CHIEF COMPLAINT: Postop cholecystectomy HISTORY OF PRESENT ILLNESS: Mr. Islas is a 77 year old male who presents for surgical follow-up after recent hospitalization for acute gangrenous cholecystitis status post robotic cholecystectomy on 02/07/2023. Patient states that overall he is doing well following surgery. No significant abdominal pain but he has had irritation of the drain site, dysuria, poor appetite, intermittent dyspepsia. He denies any wound related issues. No fevers or chills. He is having normal bowel function. PAMELA drain has been light serous and decreasing in volume. PAST MEDICAL HISTORY Diagnosis Date Anxiety AV node dysfunction Benign hypertension BPH (benign prostatic hyperplasia) Chronic pain CKD (chronic kidney disease) stage 2, GFR 60-89 ml/min DM II (diabetes mellitus, type II) ([facility]) H/O echocardiogram 02/21/2023 EF 64 5%, no significant valvular abnormalities History of stress test 09/25/2022 EF 77%, no ischemia, no scar Hypothyroidism Insomnia assisted current use of anticoagulant Xarelto 20 mg qd Mixed hyperlipidemia Obesity (BMI 30.0-34.9) PAF (paroxysmal atrial fibrillation) ([facility]) Polyneuropathy Prostate CA ([facility]) PVC's (premature ventricular contractions) Sinus bradycardia PAST SURGICAL HISTORY Procedure Laterality Date F TRIAL SPINAL CORD STIMULATOR FORCEPS ESOPHAGEAL BIOPSY PERFORMED HAND LEFT OP SURGERY x5 HAND RIGHT OP SURGERY x 4 PROSTATE BIOPSY FAMILY HISTORY Problem Relation Age of Onset No Known Problems Brother Social History Tobacco Use Smoking status: Never Passive exposure: Never Smokeless tobacco: Never Substance Use Topics Alcohol use: Never Drug use: Never (Not in a hospital admission) No current facility-administered medications for this visit. ALLERGIES No Known Allergies COMPLETE REVIEW OF SYSTEMS: See HPI Objective PHYSICAL EXAM: BP 138/72 Pulse 86 Wt 208 lb 3.2 oz (94.4kg) SpO2 97% Physical Exam Performed GENERAL: Alert, no distress, cooperative, Obese SKIN: Skin color, texture, turgor normal. No rashes or lesions. LUNGS: Lungs clear to auscultation, Good diaphragmatic excursion CARDIAC: Normal S1 and S2; no rubs, murmurs, or gallops ABDOMEN: Soft, nontender, nondistended. Incisions are clean dry and intact and healing well. Right upper quadrant PAMELA drain with serous fluid in the bulb. The tubing appears little clotted proximally. There is erythema and some mild purulence at the skin site. The drain was removed today in clinic without complications. The drain site was cleaned with iodine and dressed with gauze and a bandage. EXTREMITIES: Extremities normal, no deformities, edema, clubbing or skin discoloration. Good capillary refill. NEURO: Gait normal. Reflexes normal and symmetric. Sensation grossly intact, Cranial nerves II-XII intact PULSES: 2+ radial RECTAL: Exam deferred DATA: Diagnostic tests reviewed for today's visit: No new labs IMAGIN77 year old male with acute gangrenous cholecystitis status post robotic cholecystectomy on 02/07/2023 -I will start him on a short course of Protonix to help with his dyspepsia. I will send him for urinalysis with reflex culture for his dysuria. If it is positive then antibiotics will be called into his pharmacy. -No additional surgical follow-up is needed at this time unless he develops any new or worsening symptoms. 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 Consultation requested by Dr. Tyson referring provider defined for this encounter. for an opinion regarding aforementioned diagnoses. My final recommendations will be communicated back to the requesting physician by way of shared Medical record or letter to requesting physician via US mail. SIGNATURE: Ike Sierra MD PATIENT NAME: Cade Islas DATE: February 22, 2023 TIME: 11:51 AM PAGER/CONTACT #: documented in this encounter [facility] 02-14-2023 Miscellaneous Notes Pt called and notified per brunilda We should cancel the pacemaker for now. He needs to be back on the Xarelto for 30 days prior to us proceeding to pacemaker implantation. Have the patient see me in about 4 to 6 weeks so he will reschedule the pacemaker implant. Pt agreeable appt scheduled We should cancel the pacemaker for now. He needs to be back on the Xarelto for 30 days prior to us proceeding to pacemaker implantation. Have the patient see me in about 4 to 6 weeks so he will reschedule the pacemaker implant. Pt called in stating pt had an emergency cholecystectomy and has a drain in that wont get removed until 02-22-23 pt is scheduled for a pacemaker on 03-05-23 and they are concerned this is too soon after his gallbladder surgery documented in this encounter [facility] 02-06-2023 Miscellaneous Notes Spoke with Suzan at [facility]. Patients Echo is scheduled for 8 AM at [facility] on 02/21/23. Patient understoood instructions that were given. documented in this encounter [facility] 02-06-2023 History of Past i llness Narrative Problem Noted Date Diagnosed Date Resolved Date Acute cholecystitis 02/06/2023 02/10/20 documented as of this encounter (statuses as of 02/14/2023) [facility] History of Present illness Narrative* Brunilda Cruz, TICKET SORTER.EPIC AMBULATORY ANALYST - 02/06/2023 1:[address] [facility] Jessica Martinez DO SUBJECTIVE: Cade Islas is a 77 year old male who is here today for a new patient visit. Referred to electrophysiology for evaluation and treatment of paroxysmal atrial fibrillation. The patient tells me that he has been having symptoms of feeling anxious intermittently for the last 4 to 5 years. The patient has had an increase in symptoms. He recently got a [employer] mobile. He documented atrial fibrillation as a cause of his symptoms. Longest episode 6 days. He also short of breath fatigued when he is in atrial fibrillation. When he is not in atrial fibrillation he has no cardiac symptoms whatsoever. He does not have any problems of chest pain, PND orthopnea, syncope, near-syncope, or edema. 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 Mixed hyperlipidemia Obesity (BMI 30.0-34.9) PAF (paroxysmal atrial fibrillation) ([facility]) Polyneuropathy Prostate CA ([facility]) PVC's (premature ventricular contractions) Sinus bradycardia PAST SURGICAL HISTORY Procedure Laterality Date F TRIAL SPINAL CORD STIMULATOR FORCEPS ESOPHAGEAL BIOPSY PERFORMED HAND LEFT OP SURGERY x5 HAND RIGHT OP SURGERY x 4 PROSTATE BIOPSY FAMILY HISTORY Problem Relation Age of Onset No Known Problems Brother SOCIAL HISTORY: Social History Tobacco Use Smoking status: Never Passive exposure: Never Smokeless tobacco: Never Substance Use Topics Alcohol use: Never Drug use: Never ALLERGIES: Patient has no known allergies. CURRENT MEDICATIONS: Current Outpatient Medications Medication Sig Cholecalciferol, Vitamin D3, 50 mcg (2,000 unit) cap Take 1,000 Units by mouth once daily. semaglutide (OZEMPIC) 2 mg/dose (8 mg/3 mL) pen injector Inject 2 mg subcutaneously one time a week. tamsulosin (FLOMAX) 0.4 mg Take 0.4 mg by mouth once daily. VITAMIN B COMPLEX ORAL Take by mouth once daily. rivaroxaban (XARELTO) 20 mg tablet Take 1 tablet by mouth once daily. amitriptyline (ELAVIL) 100 mg tablet Take 100 mg by mouth daily at bedtime. amLODIPine (NORVASC) 5 mg tablet Take 5 mg by mouth once daily. atorvastatin (LIPITOR) 10 mg tablet Take 10 mg by mouth once daily. fluticasone (FLONASE) 50 mcg/actuation nasal spray Use 1 [place] in each nostril once daily. gabapentin (NEURONTIN) 600 mg tablet Take 600 mg by mouth four times daily. HYDROcodone-Acetaminophen (NORCO) 10-325 mg per tablet Take 1 tablet by mouth every 6 hours. VASCEPA 1 gram capsule Take 2 g by mouth two times a day with meals. levothyroxine (SYNTHROID) 50 mcg tablet Take 50 mcg by mouth once daily. lisinopril (ZESTRIL) 40 mg tablet Take 40 mg by mouth two times a day. metFORMIN (GLUCOPHAGE) 500 mg tablet Take 500 mg by mouth four times daily. potassium chloride SR (MICRO-K) 10 mEq CR capsule Take 10 mEq by mouth once daily. enoxaparin (LOVENOX) 80 mg/0.8 mL Inject 0.8 mL subcutaneously every 12 hours for 2 days. No current facility-administered medications for this visit. Review of Systems Constitutional: Positive for fatigue. Negative for activity change and fever. Respiratory: Positive for shortness of breath. Negative for apnea, cough, chest tightness, wheezingand stridor. Cardiovascular: Positive for palpitations. Negative for chest pain and leg swelling. Gastrointestinal: Negative for abdominal distention, diarrhea and vomiting. Musculoskeletal: Negative for joint swelling, neck pain and neck stiffness. Skin: Negative for color change, pallor and rash. Neurological: Negative for dizziness, syncope, weakness, light-headedness and numbness. Hematological: Does not bruise/bleed easily. Psychiatric/Behavioral: Negative for agitation, behavioral problems and confusion. The patient is not nervous/anxious. All other systems reviewed and are negative. PHYSICAL EXAMINATION: 02/06/23 1333 BP: 142/68 BP Site: Right Arm BP Position: Sitting Pulse: 70 Last 3 Encounter BP Readings: Date: BP: 07/05/2022 148/82 Last 3 Encounter Pulse Readings: Date: Pulse: 07/05/2022 78 Last 3 Encounter Wt Readings: Date: Wt: 07/05/2022 93 kg (205 lb) Potassium Date Value 01/18/2023 4.5 mmol/L 05/07/2021 4.1 MMOL/L Sodium Date Value 01/18/2023 141 mmol/L 05/07/2021 139 MMOL/L Magnesium (MG/DL) Date Value 05/07/2021 2.3 Creatinine Date Value 01/18/2023 1.22 mg/dL 05/07/2021 1.09 MG/DL BUN Date Value 01/18/2023 28 mg/dL 05/07/2021 28 MG/DL Glucose Date Value 01/18/2023 103 mg/dL 05/07/2021 130 MG/DL INR (no units) Date Value 04/12/2022 1.1 10/25/2020 1.05 TSH Date Value 08/10/2022 0.940 mIU/L 05/07/2021 1.588 UIU/ML Physical Exam Vitals and nursing note reviewed. Constitutional: General: He is not in acute distress. Appearance: Normal appearance. He is obese. He is not toxic-appearing. HENT: Head: Normocephalic and atraumatic. Nose: Nose normal. Mouth/Throat: Mouth: Mucous membranes are moist. Neck: Vascular: No carotid bruit. Cardiovascular: Rate and Rhythm: Normal rate and regular rhythm. Pulses: Normal pulses. Heart sounds: Normal heart sounds. No murmur heard. No friction rub. No gallop. Pulmonary: Effort: Pulmonary effort is normal. No respiratory distress. Breath sounds: Normal breath sounds. No stridor. No wheezing, rhonchi or rales. Chest: Chest wall: No tenderness. Abdominal: General: Abdomen is flat. There is no distension. Palpations: Abdomen is soft. There is no mass. Tenderness: There is no abdominal tenderness. Musculoskeletal: General: No swelling. Cervical back: Normal range of motion. No muscular tenderness. Right lower leg: No edema. Left lower leg: No edema. Skin: General: Skin is warm and dry. Capillary Refill: Capillary refill takes less than 2 seconds. Coloration: Skin is not jaundiced or pale. Findings: No bruising or rash. Neurological: General: No focal deficit present. Mental Status: He is alert and oriented to person, place, and time. Mental status is at baseline. Motor: No weakness. Gait: Gait normal. Psychiatric: Mood and Affect: Mood normal. Behavior: Behavior normal. Thought Content: Thought content normal. Judgment: Judgment normal. Diagnostic results: EKG: normal sinus rhythm, 70 bpm, rightward axis ASSESSMENT/PLAN: 1. Benign hypertension - ICD9: 401.1, ICD10: I10 Target BP 130/80 or less. The pt is on chronic medications. Blood pressure reasonably well controlled. Once pacemaker implanted we will likely put the patient on sotalol. We will reevaluate blood pressure after medication changes. 2. Mixed hyperlipidemia - ICD9: 272.2, ICD10: E78.2 Patient is on atorvastatin 10 mg daily. Managed by primary care physician. 3. PAF (paroxysmal atrial fibrillation) (HCC) - ICD9: 427.31, ICD10: I48.0 The patient has been having problems with feeling anxious for short periods of time over the last4 to 5 years. Patient has a [employer] mobile. He started having problems with the same symptoms recently and he will documented atrial fibrillation times he is having the symptoms. His heart rate is reasonably well controlled in atrial fibrillation with short episodes of faster heart rates but typically the fastest he goes is around 105 bpm or less. He is not on any heart rate slowing or direct antiarrhythmic medications. The patient states when he is in sinus rhythm heart rate runs in the 50s most of the time but he has documented heart rates in the 70s. Liz options including dual-chamber pacemaker implantation with addition of antiarrhythmic medications versus cryoablation. Ultimately, he decided to proceed to pacemaker implantation. 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 The pt is not complaining of any signs and symptoms of bleeding.The patient was instructed to call with any problems. 5. AV node dysfunction I45.89 The patient has documentation of some AV node dysfunction as sometimes his heart rates go up to around 130-135 bpm in atrial fibrillation but mostly his heart rate is around 105 bpm or less when he is in atrial fibrillation. He is not on any heart rate slowing medications. He would benefit from direct antiarrhythmic medications. He would be better to have a dual-chamber pacemaker so we could safely increase the medications to max doses and to prevent recurrent atrial fibrillation. We discussed the risk, benefits, and alternatives of dual-chamber pacemaker implantation. He would like to proceed. 6. Sinus bradycardia R00.1 Patient states his heart rate in sinus rhythm tends to run in the 50s most of the time. He has documented heart rates in the 70s. He is not on any heart rate slowing drugs at this time. As above, he would benefit from pacemaker implantation. [facility] Note ORIGINAL EXAMINATION: WHOLE BODY BONE SCAN02/06/2023 1:13 pm TECHNIQUE: The patient received an intravenous injection of 25.8 mCi of Tc-99m MDP. Anterior and posterior images of the skeleton from skull vertex to feet were then acquired. Additional regional skeletal images were also obtained. COMPARISON: 02/05/2023 HISTORY: ORDERING SYSTEM PROVIDED HISTORY: Reason for Exam: Prostate cancer FINDINGS: There are no suspicious foci of radiotracer uptake to suggest osseous metastatic disease. There are areas of arthritic uptake including the shoulders, knees, and feet. Activity in the bilateral kidneys and the urinary bladder represent normal route of radiopharmaceutical excretion. The soft tissue distribution of radiotracer activity is within normal limits. IMPRESSION: No evidence of osseous metastatic disease. I have personally reviewed the images of this examination and agree with the resident's findings and interpretation. Interpreted by: Asia Mcclain Preliminary Report By: Kota Serrano Electronically signed By Asia Mcclain Dictated Date: 02/06/2023 2:09:53 PM Prelim Date: 02/06/2023 6:05:31 PM Sign Date: 02/06/2023 6:05:31 PM Ordering Provider: [facility]10-17-2023 Miscellaneous Notes * Telephone Encounter - Mel Phipps - 01/09/2023 11:04 AM EDT Patients called back to reschedule Dr. Potter appt Mel Phipps * Telephone Encounter - Mel Phipps - 01/09/2023 10:39 AM EDT Patients called to see if he can get a different appt with Tariq, let her know he is bookinginto May, made appt with Rosalee but is going to see if they can still make the appt with Dr. Potter patients will call back Mel Phipps documented in this encounterBer[facility]09-28-2023 Miscellaneous Notes* Telephone Encounter - Gracy Sheehan RN - 12/21/2022 3:25 PM EDT Tried to call in a verbal order. Pharmacy stated they do not accept verbal orders and will need prescription faxed. Dr. Potter is out of office today, will fax prescription tomorrow. Gracy Sheehan, JESENIA * Telephone Encounter - Karen Pablo - 12/21/2022 3:04 PM EDT called stating that pharmacy is just waiting for us to send script. * Telephone Encounter - Brittanie Allen - 12/19/2022 11:39 AM EDT was calling to register today Brittanie Allen * Telephone Encounter - Gracy Sheehan RN - 12/19/2022 11:38 AM EDT Please let pt. Know he needs to register through their pharmacy for the order to be sent. I tried to do a verbal order and pt. Was not in there system. Thank you. Gracy Sheehan RN * Telephone Encounter - Brittanie Allen - 12/19/2022 11:26 AM EDT Please ask Dr Potter to print out prescription for Xarelto 20mg so we can send it to [email or web address]. He has been out for 2-3 days. Brittanie Allen * Telephone Encounter - Brittanie Allen - 12/18/2022 4:21 PM EDT LVM for return call Brittanie Allen * Telephone Encounter - Sherrie Dodge - 12/15/2022 1:17 PM EDT Pt is calling pt is in the doughnut hole he cant afford xarelto documented in this encounterBerger [facility]09-11-2023 Miscellaneous Notes* Telephone Encounter - Gracy Sheehan RN - 12/04/2022 1:50 PM EDT Clearance faxed. Gracy Sheehan RN * Telephone Encounter - Sharlene Feng - 12/04/2022 10:06 AM EDT Vanesa from [facility] is calling in regards if there is any way to get the clearance form back today. They would like to let the patient know if he needs to hold any medications. Please call her with any questions at [phone]. Please fax clearance form to [phone] or [phone]. * Telephone Encounter - Gracy Sheehan RN - 12/04/2022 10:00 AM EDT Will have review. Once signed will fax. Gracy Sheehan RN * Telephone Encounter - Sharlene Feng - 12/01/2022 3:16 PM EDT Received a clearance form from [facility]. Patient is scheduled for a procedure on 12/08/22. Will scan into chart and place in bin. * Telephone Encounter - Sharlene Feng - 12/01/2022 1:31 PM EDT [facility] called in to check the status of the patient's clearance form. I let her know that we did not receive it and she is going to refax the clearance. Patient is scheduled for a procedure on 12/07. documented in this encounterBerger Hospital08-21-2023 Evaluation + Plan note Future Scheduled Tests Laboratory* Prostate Specific Antigen 11/13/22 [facility] 08-21-2023 Evaluation + Plan note Future Scheduled Tests Laboratory* Prostate Specific Antigen 11/13/22 Radiology* NM Bone Imaging Whole Body 02/05/23 * CT Abd/Pelvis w/ IV Contrast Only 02/05/23 [facility] 06-15-2023 Miscellaneous Notes* Telephone Encounter - Justina Wallis - 09/07/2022 2:21 PM EDT Pulled and faxed records to [facility]. * Telephone Encounter - Sherrie Dodge - 09/07/2022 1:59 PM EDT Fiona from [facility] is asking for last office note, EKG, and cardiac clearance form to be faxed to [phone] documented in this encounterBerger Hospital05-01-2023 History of Present illness Narrative* RT Olivia(R) - 09/25/2022 9:17 AM EDT RADIOLOGY SERVICE PROGRESS NOTE SERVICE DATE: 09/25/2022 SERVICE TIME: 9:17 AM PATIENT IDENTITY VERIFICATION COMPLETED USING TWO (2) STANDARD IDENTIFIERS: Name and Date of confirmed by patient verbally FALL SCREENING: Has the patient had 2 falls in the last year or 1 fall with injury or currently using an Ambulatory Assistive Device (Walker, Cane, Wheelchair, Crutches, etc.)? No PATIENT GENDER DATA: .male : No ALLERGIES: Reviewed and unchanged MEDICATIONS REVIEWED: Not applicable PATIENT RELEVANT IMPLANT DATA REVIEWED: Not Applicable CREATININE: Creatinine Date Value Ref Range Status 08/10/2022 0.99 0.50 - 1.40 mg/dL Final Comment: Patients receiving either N-Acetylcysteine (NAC) or Metamizole prior to venipuncture, may have falsely depressed results. 07/18/2022 1.03 0.50 - 1.40 mg/dL Final Comment: Patients receiving either N-Acetylcysteine (NAC) or Metamizole prior to venipuncture, may have falsely depressed results. 05/23/2022 1.13 0.50 - 1.40 mg/dL Final Comment: Patients receiving either N-Acetylcysteine (NAC) or Metamizole prior to venipuncture, may have falsely depressed results. Estimated Glomerular Filtration Rate Date Value Ref Range Status 08/10/2022 79 >=60 mL/min/1.73m Final Comment: Estimated Glomerular Filtration Rate (eGFR) is calculated using the 2020 CKD-EPI creatinine equation. This equation utilizes serum creatinine, sex, and age as parameters. The creatinine assay has traceable calibration to isotope dilution- mass spectrometry. Refer to KDIGO guidelines for clinical interpretation. In patients with unstable renal function, e.g. those with acute kidney injury, the eGFRmay not accurately reflect actual GFR. eGFR- Date Value Ref Range Status 05/07/2021 Greater than 60 Final P.O.C.T. RESULTS: N/A September 25, [address] PERFORMED: No IV SITE: Ambulatory: A peripheral IV was started in the Right antecubital site with a Angio cath: 24 gauge. POST EXAM PIV STATUS: Discontinued PROCEDURE TYPE: NM Stress: 13.0 mCi [id number] was administered IV for Rest Imaging at 0700 by tm. 30.5 mCi [id number] was administered IV for Stress Imaging at 0912 by tm. ADMINISTRATION TIME: 0945 PATIENT DISCHARGED TO: Ambulatory patient, left [place] department area. A Diagnostic radioactive procedure has taken place, with no further precautions necessary other than routine body substance precautions. More information regarding radiation safety can be found usingthis link: [email or web address] SIGNATURE: ALEAH Baker) PATIENT NAME: Cade Islas DATE: September 25, 2022 TIME: 9:17 AM PAGER/CONTACT #: documented in this encounterBerger Hospital04-12-2023 Instructions* Patient Instructions* Gracy Sheehan RN - 07/05/2022 2:34 PM EDT Stress test to be completed before next office visit Return to office in 6 months Start xarelto 20 mg 1 tab daily documented in this encounterBerger Hospital04-12-2023 History of Present illness Narrative* Gracy Sheehan RN - 07/05/2022 2:15 PM EDT Images from the original note were not included. [facility] [place] OUTPATIENT VISIT DATE July 05, 2022 OUTPATIENT VISIT TYPE Established PRIMARY CARE PHYSICIAN: Jessica Martinez [address] [facility] [address] [place] [address] HISTORY OF PRESENT ILLNESS: Mr. Islas is a 77 year old male who presents today for: New Patient Patient is here today for a new patient appointment. Patient was referred due to recurrent bursts of AFIB with controlled ventricular rate. He does not have any neuro symptoms, but does feel anxious during afib episodes. Denies any chest pain or pressure, heart palpitations, lightheadedness, dizziness, syncope, SOB, dyspnea, or waking up at night short of breath VSS. Lungs CTAB. Heart sounds WNL.Medications reviewed, and changes have been made. History reviewed. No pertinent past medical history. History reviewed. No pertinent surgical history. SOCIAL HISTORY Tobacco Use Smokeless tobacco: Never History reviewed. No pertinent family history. ALLERGIES No Known Allergies MEDICATIONS: amitriptyline (ELAVIL) 100 mg tablet amLODIPine (NORVASC) 5 mg tablet atorvastatin (LIPITOR) 10 mg tablet fluticasone (FLONASE) 50 mcg/actuation nasal spray gabapentin (NEURONTIN) 600 mg tablet HYDROcodone-Acetaminophen (NORCO) 10-325 mg per tablet VASCEPA 1 gram capsule levothyroxine (SYNTHROID) 50 mcg tablet lisinopril (ZESTRIL) 40 mg tablet Take by mouth. meloxicam (MOBIC) 15 mg tablet metFORMIN (GLUCOPHAGE) 500 mg tablet Take 500 mg by mouth. potassium chloride SR (MICRO-K) 10 mEq CR capsule Take by mouth. rivaroxaban (XARELTO) 20 mg tablet Take 1 tablet by mouth once daily. REVIEW OF SYSTEMS: Review of Systems Respiratory: Negative. Cardiovascular: Negative. Neurological: Negative. Psychiatric/Behavioral: Negative. PHYSICAL EXAMINATION: BP 148/82 (BP Site: Left Arm, BP Position: Sitting, BP Cuff Size: Large Adult) Pulse 78 Ht 172.7 cm (5' 8) Wt 93 kg (205 lb) SpO2 98% BMI 31.17 kg/m Physical Exam Vitals reviewed. Neck: Vascular: No carotid bruit. Cardiovascular: Rate and Rhythm: Normal rate and regular rhythm. Heart sounds: Normal heart sounds, S1 normal and S2 normal. Pulmonary: Effort: Pulmonary effort is normal. Breath sounds: Normal breath sounds. Musculoskeletal: Right lower leg: No edema. Left lower leg: No edema. Skin: Capillary Refill: Capillary refill takes less than 2 seconds. Nails: There is no clubbing. Neurological: Mental Status: He is alert and oriented to person, place, and time. Psychiatric: Mood and Affect: Mood and affect normal. Behavior: Behavior normal. CARDIOVASCULAR MEDICINE TESTING: Electrocardiogram: Vent rate: 081 bpm NC int: 162 ms QRS dur: 090 ms QT int: 382 ms QTC int: 443 ms P-R-T axes: 015 -26 044 degrees Normal sinus rhythm Normal EKG HOLTER REPORT 03/15/20 Conclusion: Holter monitor showing PVCs however no sustained or clinically significant arrhythmias Symptoms correlated with normal sinus rhythm IMPRESSION: Mr. Islas is a 77 year old male with a diagnosis of PAF and possible SSS - see old records PLAN AND RECOMMENDATIONS: 1. Essential hypertension Monitor BP 2-3 times a week and record Return to office in 6 months 2. Paroxysmal atrial fibrillation (HCC) EKG Xarelto 20 mg 3. Encounter for screening for cardiovascular disorders - NM CARDIAC PERF STRESS/EXERCISE; Future Gracy Sheehan RN is scribing this note for MD Nancy Heller MD documented in this encounterBerger Hospital09-23-2022 Miscellaneous Notes* Telephone Encounter - Rosalie Peters - 12/16/2021 3:30 PM EDT LVM of date and time for appt advised patient to call back if does not work Rosalie Peters * Telephone Encounter - Sharlene Feng - 12/13/2021 2:52 PM EDT New Patient Referral Requesting-Dr. Potter Cade Annl :1945 Phone #: [phone] Reason- Abnormal EKG Records Scanned In * Telephone Encounter - Sharleneguido Feng - 12/13/2021 1:38 PM EDT Received a fax that the patient has the Ekg's on his phone. * Telephone Encounter - Sharlene Feng - 12/05/2021 3:23 PM EDT Requested EKG from Dr. Martinez's office. * Telephone Encounter - Sharlene Feng - 12/05/2021 2:39 PM EDTSummary: Referral Received a referral from [facility] the office of Dr. Martinez. Patient is referred for abnormal EKG. documented in this encounterBerger Hospital07-29-2022 Evaluation + Plan note Future Scheduled Tests Laboratory* Prostate Specific Antigen 10/21/22 * Prostate Specific Antigen 10/21/21 [facility] 04-19-2022 [facility] note Author Phoenix Joseph [facility] Note Date/Time October 13, 2024 10:[address] [facility] Medical Records Department [address] [place] [address] Pre-Anesthesia Evaluation 10/13/24 1030 MR#: [id number] Acct: [id number] Name: CADE ISLAS Rep #:[id number] : 1945 79 From: Phoenix Joseph MD PCP: NIR BURNETT Status:REG SDC Y Race: C Location: [place] [address] ASA Classification* ASA Classification ASA Classification: 3 Assessment & Plan Anesthesia* Anesthesia Assessment Anesthesia Assessment: Discussed sedation and/or anesthesia options, risks, benefits, and alternatives with patient/parents/legal guardian/POA. Questions invited. The patient/parents/legal guardian/POA seems to understand and agrees to proceedwith anesthesia plan. Reviewed the physical assessment, medical history, allergy history and patient home medications list prior to surgery/procedure/anesthetic and documented any changes. Performed airway and anesthesia risk assessments. Anesthesia Type Anesthesia Type: MAC History Source History Obtained from:: Patient and Chart Anesthesia Focused Assessment* Temperature: 96.7 F Pulse Rate: 70 Blood Pressure: 130/87 Respiratory Rate: 18 Pulse Ox: 97 Oxygen Delivery Method: Room Air Airway Assessment Mouth opens: >3 cm Mallampati Score: II Teeth Condition: Caps/Crowns (Patient has 1 veneer and 2 caps. 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 When Was Last Pacemaker Check QUESTION #4 FULL TEXT: You/Your Family Experience fever (hyperthermia) with Anesthesia Last Oral Intake Last Oral intake: Last Oral Intake NPO since 00:00 10/13/24 10:14 Meds taken in AM with sips of No 10/13/24 10:14 water? Meds patient instructed to take am of surgery Any additional information?: Yes Meds taken in AM with sips of water?: Yes PONV PONV - workforce manager: PONV - workforce manager Female Yes 10/07/24 10:23 HX of Motion Sickness No 10/07/24 10:23 HX of N/V After Surgery No 10/07/24 10:23 Non-Smoker Yes 10/07/24 10:23 Duration of Surgery greater No 10/07/24 10:23 than 60 minutes Number of Risk Factors 2 10/07/24 10:23 PONV Score Moderate Risk 10/07/24 10:23 Height & Weight Height & Weight: Anesthesia: Height & Weight Height 5 ft 8 in 10/13/24 10:14 Weight: 100.5 kg 10/13/24 10:14 Body Mass Index (BMI) 33.7 10/13/24 10:14 Respiratory Assessment Respiratory Assessment - workforce manager: Respiratory Tract Infection Hx - workforce manager Hx Respiratory Tract Infection No 10/07/24 10:23 STOP Sleep Apnea STOP Sleep Apnea - workforce manager: STOP Sleep Apnea - workforce manager Hx Hypertension Yes: CONTROLLED WITH MED 10/07/24 10:23 Hx Sleep Apnea Yes 10/07/24 10:23 CPAP Yes: NO LONGER USES 10/07/24 10:23 BIPAP No 10/07/24 10:23 Do you snore loudly (louder than talking or can be heard Do you often feel tired/ fatigued/ sleepy during daytime? Has anyone observed you stop breathing during sleep? STOP Results Positive 10/07/24 10:23 QUESTION #5 FULL TEXT : Do you snore loudly (louder than talking or can be heard through closed doors)? 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 Specify any problems Hx of Preganancy in last 3 N/A 10/07/24 10:23 Months Nurse Filling Out Transfusion [id number] 10/07/24 10:23 & Questions: Date: 10/07/24 10/07/24 10:23 Time: 10:23 10/07/24 10:23 Patient unable to answer at this time (ie. confused, unrespo /Reproduction History /Reproductive History - workforce manager: /Reproductive Hx- workforce manager Hx Now No 10/07/24 10:23 Gestational Age (in weeks): EDC: Hx Hx Para Hx Section SAB No 10/07/24 10:23 Active Medications Active Medications: Current Medications Generic Name Dose Route Start Last Admin Trade Name Freq PRN Reason Stop Dose Admin Lactated Ringer's 1,000 mls @ 15 mls/hr 10/13/24 10:00 10/13/24 10:26 IV 15 mls/hr .Q48H LYNDA Administration PFSH Medical History History of pacemaker Cancer Heartburn CPAP (continuous positive airway pressure) dependence History of atrial fibrillation History of echocardiogram Cardiology follow-up encounter Wears hearing aid Wears glasses Thyroid disease Diabetes Arthritis High cholesterol Back pain Injury of head and neck Dietary restriction Non-smoker History of pain when walking History of stress test Hypertension History of trigger finger Home Medications ?Medication ?Instructions ?Recorded ?Last Taken ?Type amitriptyline 100 mg tablet 100 mg PO QHS 10/05/17 History cholecalciferol (vitamin D3) 50 1,000 unit PO DAILY 10/12/24 History mcg (2,000 unit) capsule (Vitamin D3) levothyroxine 50 mcg tablet 50 mcg PO MOTUWEFRSA 10/0510/11/24 History vitamin B complex 1 ea PO DAILY 10/05/1710/12 History amlodipine 5 mg tablet 10 mg PO DAILY bp 06/19/18 0 10/13/24 History fluticasone propionate 50 15.8 ml intranasal DAILY PRN nasal 06/19/18 10/13/24 History mcg/actuation nasal congestion spray,suspension (24 Hour Allergy Relief) hydrocodone 10 mg-acetaminophen 1 ea PO Q6H PRN PRN Pa in 06/19/18 10/13/24 History 300 mg tablet (Vicodin HP) gabapentin 100 mg capsule 600 mg PO TID pain 10/24/19 10/12/24 History potassium chloride 10 mEq 10 meq PO DAILY 10/24/19 History tablet,extended release(part/cryst) coenzyme Q10 100 mg capsule 100 mg PO DAILY 03/22/21 0 10/12/24 History (CoQ-10) metformin 1,000 mg tablet 1,000 mg PO BID 03/22/21 History bannh-k-juupkovwjebbj 400 unit 400 unit PO BID PRN (Dr torres) 09/07/22 10/12/24 History tablet (Beano) Ingestion atorvastatin 10 mg tablet 10 mg PO QHS 09/07/22 History levothyroxine 75 mcg tablet 75 mcg PO SUTH 09/07/22 History lisinopril 40 mg tablet 40 mg PO BID 09/07/22 History rivaroxaban 20 mg tablet (Xarelto) 20 mg PO DAILY 08/2410/09/24 History semaglutide 2 mg/dose (8 mg/3 mL) 2 mg subcut WE 09/0710/01/24 History subcutaneous pen injector (Ozempic) Allergy/AdvReac Type Severity Reaction Status Date / Time No Known Allergies Allergy Verified 10/13/24 10:12 Surgical History Hx laparoscopic cholecystectomy Hx of prostatectomy Hx of surgical procedure History of surgery Hx of thumb surgery Hx of surgical procedure Hx of surgical procedure History of bilateral carpal tunnel release Social History Smoking Status: Never smoker Review of Systems (Anesthesia) ROS Narrative System reviewed and no additional complaints, except as documented. 10/13/24 1037 <Electronically signed by Phoenix osborne MD> Date _ Phoenix Joseph MD Cosigner Signature: Date CC: ~ Signed [facility] Work Phone: Consult note Author Jada Bauman [facility] Note Date/Time October 13, 2024 10:[address] [facility] Medical Records Department [address] [place] [address] Anesthesia Postop Eval I 10/13/24 1058 MR#: [id number] Acct: [id number] Name: CADE ISLAS Rep #:[id number] : 1945 79 From: Jada CATALAN NA PCP: NIR BURNETT Status:REG SDC Y Race: C Location: [place] [address] Anesthesia: Postop Eval I Current Vital Signs Temperature: 36 F Pulse Rate: 60 Blood Pressure: 105/59 Respiratory Rate: 14 Pulse Ox: 98 Assessment Airway patent: Yes Spontaneous unlabored respirations: Yes nausea: No Vomiting: No Anesthesia Complication: No Fluid Hydration Crystalloid volume administer (ml): 300 Total IV fluid infused: 300 Progress Note Anesthesia document: Postop Eval 1 completed: Yes 10/13/24 1059 <Electronically signed by Jada Bauman CRNA> Date _ Jada Bauman CRNA Cosigner Signature: Date CC: ~ Signed [facility] Work Phone: Evaluation + Plan note Future Appointments Appointment Date:03/02/2023 01:00:00 PM Scheduled Provider:SUNNY FARAH MD Location:UROLOGY Appointment Type:URO OV Appointment Date:03/05/2023 11:00:00 AM Scheduled Provider:JANET THOMASON MD Location:RAD ONC CAN Appointment Type:RO Consult Future Scheduled Tests Laboratory* Prostate Specific Antigen 11/13/22 [facility] Evaluation note* Diagnosis Hepatic cirrhosis, unspecified hepatic cirrhosis type, unspecified whether ascites present (HCC)- Primary documented in this encounter [facility] note* Diagnosis Essential hypertension- Primary Unspecified essential hypertension Paroxysmal atrial fibrillation (HCC) Atrial fibrillation Encounter for screening for cardiovascular disorders Screening for other and unspecified cardiovascular conditions documented in this encounter [facility] note* Diagnosis Essential hypertension Unspecified essential hypertension Paroxysmal atrial fibrillation (HCC) Atrial fibrillation Encounter for screening for cardiovascular disorders Screening for other and unspecified cardiovascular conditions documented in this encounter [facility] noteNo assessment information availableWHighland [facility] Work Phone: Evaluation note* Diagnosis Essential hypertension Unspecified essential hypertension Paroxysmal atrial fibrillation (HCC) Atrial fibrillation Encounter for screening for cardiovascular disorders Screening for other and unspecified cardiovascular conditions documented in this encounter [facility] note* Diagnosis Obesity (BMI 30.0-34.9)- Primary Obesity, unspecified Benign hypertension Essential hypertension, benign Mixed hyperlipidemia PAF (paroxysmal atrial fibrillation) (HCC) Atrial fibrillation assisted current use of anticoagulant Long-term (current) use of anticoagulants CKD (chronic kidney disease) stage 2, GFR 60-89 ml/min Chronic kidney disease, Stage II (mild) PVC's (premature ventricular contractions) Other premature beats AV node dysfunction Other specified conduction disorder Sinus bradycardia Other specified cardiac dysrhythmias PAF (paroxysmal atrial fibrillation) (HCC) Atrial fibrillation documented in this encounter [facility] note* Diagnosis Acute gangrenous cholecystitis- Primary Acute cholecystitis Cirrhosis of liver without ascites, unspecified hepatic cirrhosis type (HCC) Dysuria documented in this encounter [facility] note* Diagnosis Lung nodules- Primary Other nonspecific abnormal finding of lung field Prostate cancer (HCC) Malignant neoplasm of prostate documented in this encounter [facility] note* Diagnosis Prostate cancer (HCC)- Primary Malignant neoplasm of prostate [facility]* Diagnosis Prostate cancer (HCC)- Primary Malignant neoplasm of prostate documented in this encounter [facility] [place] [facility]* Diagnosis Prostate cancer (HCC)- Primary Malignant neoplasm of prostate Elevated PSA, less than 10 ng/ml Benign prostatic hyperplasia without lower urinary tract symptoms documented in this encounter [facility] [place] [facility]* Diagnosis Malignant neoplasm of prostate (HCC)- Primary Malignant neoplasm of prostate documented in this encounter [facility] note* Diagnosis Post-operative state- Primary Other postprocedural status S/P prostatectomy Other postprocedural status Malignant neoplasm of prostate (HCC) Malignant neoplasm of prostate Prostate cancer (HCC) Malignant neoplasm of prostate documented in this encounter [facility] note* Diagnosis PAF (paroxysmal atrial fibrillation) (HCC)- Primary Atrial fibrillation Benign hypertension Essential hypertension, benign documented in this encounter [facility] note* Diagnosis Prostate cancer (HCC) Malignant neoplasm of prostate documented in this encounter [facility] note* Diagnosis Prostate cancer (HCC)- Primary Malignant neoplasm of prostate Stress incontinence Female stress incontinence documented in this encounter [facility] note* Diagnosis PAF (paroxysmal atrial fibrillation) (HCC)- Primary Atrial fibrillation Benign hypertension Essential hypertension, benign documented in this encounter [facility] note* Diagnosis Lung nodules Other nonspecific abnormal finding of lung field documented in this encounter [facility] note* Diagnosis Abscess of male pelvis (CMS/HCC) (HCC)- Primary Peritoneal abscess Abscess of male pelvis (CMS/HCC) (HCC) Peritoneal abscess documented in this encounter [facility] note* Diagnosis Prostate cancer (HCC)- Primary Malignant neoplasm of prostate documented in this encounter [facility] note* Diagnosis Prostate cancer (HCC)- Primary Malignant neoplasm of prostate documented in this encounter [facility] note* Diagnosis Abscess of male pelvis (CMS/HCC) (HCC) Peritoneal abscess documented in this encounter [facility] note* Diagnosis Abscess of male pelvis (CMS/HCC) (HCC)- Primary Peritoneal abscess documented in this encounter [facility] note* Diagnosis Prostate cancer (HCC)- Primary Malignant neoplasm of prostate Stress incontinence Female stress incontinence documented in this encounter [facility] note* Diagnosis Encounter for care of pacemaker- Primary documented in this encounter [facility] note* Diagnosis Prostate cancer (HCC)- Primary Malignant neoplasm of prostate Stress incontinence Female stress incontinence Erectile dysfunction after radical prostatectomy documented in this encounter [facility] note* Diagnosis Prostate cancer (HCC) Malignant neoplasm of prostate Benign prostatic hyperplasia without lower urinary tract symptoms documented in this encounter [facility] note* Diagnosis Stress incontinence, male- Primary Erectile dysfunction after radical prostatectomy Prostate cancer (HCC) Malignant neoplasm of prostate documented in this encounter [facility] note* Diagnosis Benign hypertension- Primary Essential hypertension, benign Mixed hyperlipidemia PAF (paroxysmal atrial fibrillation) (HCC) Atrial fibrillation assisted current use of anticoagulant Long-term (current) use of anticoagulants Pacemaker Cardiac pacemaker in situ AV node dysfunction Other specified conduction disorder DM II (diabetes mellitus, type II) (HCC) documented in this encounter [facility] note* Diagnosis Encounter for care of pacemaker- Primary documented in this encounter [facility] note* Diagnosis PAF (paroxysmal atrial fibrillation) (HCC) Atrial fibrillation documented in this encounter [facility] note* Diagnosis Abscess of male pelvis (CMS/HCC) (HCC)- Primary Peritoneal abscess Dysuria- Primary documented in this encounter [facility] note* Diagnosis Abscess of male pelvis (CMS/HCC) (HCC)- Primary Peritoneal abscess Erectile dysfunction after radical prostatectomy- Primary Stress incontinence, male Abscess of male pelvis (CMS/HCC) (HCC) Peritoneal abscess documented in this encounter [facility] note* Diagnosis Encounter for care of pacemaker- Primary documented in this encounter [facility] note* Diagnosis Abscess of male pelvis (CMS/HCC) (HCC)- Primary Peritoneal abscess Prostate cancer (HCC)- Primary Malignant neoplasm of prostate Stress incontinence, male Erectile dysfunction after radical prostatectomy documented in this encounter [facility] note* Diagnosis PAF (paroxysmal atrial fibrillation) (HCC) Atrial fibrillation documented in this encounter [facility] note* Diagnosis Benign hypertension- Primary Essential hypertension, benign Mixed hyperlipidemia PAF (paroxysmal atrial fibrillation) (HCC) 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 Long-term (current) use of anticoagulants Pacemaker Cardiac pacemaker in situ AV node dysfunction Other specified conduction disorder Sinus bradycardia Other specified cardiac dysrhythmias Obesity (BMI 30.0-34.9) Obesity, unspecified documented in this encounter [facility] note* Diagnosis Abscess of male pelvis (CMS/HCC) (HCC)- Primary Peritoneal abscess Prostate cancer (HCC)- Primary Malignant neoplasm of prostate Stress incontinence, male Erectile dysfunction after radical prostatectomy documented in this encounter [facility] course Narrative No data available for this section [facility] Discharge instructions No data available for this section [facility] Hospital Discharge instructions* Attachments The following attachments cannot be sent through Care Everywhere. * How to Care for Your Cannon Catheter (Greenlandic) * Prostatectomy Discharge Instructions (Greenlandic) documented in this [facility] note No data available for this section [facility] Reason for referral (narrative)* Diagnostic Procedure Only (Routine) - Pending Review Specialty Diagnoses / Procedures Referred By Bart shelton Referred To Contact US IMAGING Diagnoses Hepatic cirrhosis, unspecified hepatic cirrhosis type, unspecified whether ascites present (HCC) Procedures US ABDOMEN COMPLETE US ABDOMINAL REAL TIME W/IMAGE DOCUMENTATION Dallas Rojas MD [address] [place] [address] Us Imaging Referral ID Status Reason Start Date Expiration Date Visits Requested Visits Authorized [id number] Pending Review Auto-Generat ed Referral 09/04/2021 10/04/2022 1 1 [facility] for referral (narrative)* Diagnostic Procedure Only (Routine) - Pending Review Specialty Diagnoses / Procedures Referred By Bart shelton Referred To Contact MOLECULAR & FUNCTIONAL IMAGING Diagnoses Essential hypertension Paroxysmal atrial fibrillation (HCC) Encounter for screening for cardiovascular disorders Procedures NM CARDIAC PERF STRESS/EXERCISE MYOCARDIAL SPECT MULTIPLE STUDIES Nancy Potter MD [address] [facility] [place] [address] Molecular & Functional Imaging [address] [place] [address] Referral ID Status Reason Start Date Expiration Date Visits Requested Visits Authorized [id number] Pending Review Auto-Generat ed Referral 08/04/2022 08/04/2023 1 1 [facility] for referral (narrative)* Outpatient Procedure (Routine) - Authorized Specialty Diagnoses / Procedures Referred By Bart Referred To Contact [facility] Diagnoses Benign hypertension PAF (paroxysmal atrial fibrillation) (HCC) PVC's (premature ventricular contractions) Procedures ECHO ECHO TTHRC R-T 2D W/WOM-MODE COMPL SPEC&COLR D Brunilda Cruz, TICKET SORTER.EPIC AMBULATORY ANALYST [address] [facility] [address] [place] [address] [facility] [address] [place] [address] Referral ID Status Reason Start Date Expiration Date Visits Requested Visits Authorized [id number] Authorized Auto-Generat ed Referral 3 02/06/2024 1 1 * Outpatient Procedure (Routine) - Pending Review Specialty Diagnoses / Procedures Referred By Contac t Referred To Contact [facility] Diagnoses PAF (paroxysmal atrial fibrillation) (HCC) Procedures ECG COMPLETE ECG ROUTINE ECG W/LEAST 12 LDS W/I&R Brunilda Cruz APRN.EPIC AMBULATORY ANALYST [address] [facility] [address] [place] [address] [facility] [address] [address] Referral ID Status Reason Start Date Expiration Date Visits Requested Visits Authorized [id number] Pending Review Auto-Generat ed Referral 3 02/06/2024 1 1 [facility] for referral (narrative)* Outpatient Procedure (Routine) - Pending Review Specialty Diagnoses / Procedures Referred By Contac t Referred To Contact [facility] Diagnoses PAF (paroxysmal atrial fibrillation) (HCC) Procedures ECG COMPLETE ECG ROUTINE ECG W/LEAST 12 LDS W/I&R Brunilda Cruz APRN.EPIC AMBULATORY ANALYST [address] [facility] [address] [place] [address] [facility] [address] [address] Referral ID Status Reason Start Date Expiration Date Visits Requested Visits Authorized [id number] Pending Review Auto-Generat ed Referral 04/30/2023 04/29/2024 1 [facility] Out[facility] Procedure (Routine) - Pending Review Specialty Diagnoses / Procedures Referred By Contac t Referred To Contact [facility] Diagnoses PAF (paroxysmal atrial fibrillation) (HCC) Procedures ECG COMPLETE ECG ROUTINE ECG W/LEAST 12 LDS W/I&R Brunilda Cruz APRN.EPIC AMBULATORY ANALYST [address] [facility] [address] [place] [address] [facility] [address] [place] [address] Referral ID Status Reason Start Date Expiration Date Visits Requested Visits Authorized [id number] Pending Review Auto-Generat ed Referral 05/14/2023 05/13/2024 1 1 [facility] for referral (narrative)No reason for referral information availableWHighland District Hospital Work Phone: Reason for visit Narrative* Diagnostic Procedure Only (Routine) - Closed Specialty Diagnoses / Procedures Referred By Bart shelton Referred To Contact MOLECULAR & FUNCTIONAL IMAGING Diagnoses Essential hypertension Paroxysmal atrial fibrillation (HCC) Encounter for screening for cardiovascular disorders Procedures NM CARDIAC PERF STRESS/EXERCISE MYOCARDIAL SPECT MULTIPLE STUDIES Nancy Potter MD [address] [facility] [place] [place] [address] Molecular & Functional Imaging [address] [place] [address] Referral ID Status Reason Start Date Expiration Date V isits Requested Visits Authorized [id number] Closed Auto-Generate d Referral 09/15/2022 11/14/2022 2 2 [facility] for visit Narrative* Auth/Cert (Routine) Specialty Diagnoses / Procedures Referred By Bart shelton Referred To Contact Diagnoses Erectile dysfunction following radical prostatectomy Stress incontinence (female) (male) Procedures NC SLING OPRATION CORRJ MALE URINARY INCONTINENCE NC CYSTOURETHROSCOPY NC INSJ PENILE PROSTHESOS INFLATABLE SELF-CONTAINED NC ADJT TIS TRNS/REARGMT F/C/C/M/N/A/G/H/F 10SQCM/< INSERTION MALE URETHRAL SLING POSSIBLE FLEXIBLE CYSTOSCOPY INSERTION OF PENILE PROSTHESIS LOCAL TISSUE REARRANGEMENT Aric Linda DO [address] [place] [address] Phone: tel: fax: Referral ID Status Reason Start Date Expiration Date Visits Re quested Visits Authorized [id number] 02/07/2024 1 1 [facility] Family History No Family History Records FoundNo Family History Records FoundNo Family History Records Found No data available for this section No data available for this section No data available for this section No Family History Records FoundNo Family History Records FoundNo Family History Records FoundNo Family History Records FoundNo Family History Records FoundNo Family History Records Found Advance Directives Documents on File Type Date Recorded Patient Director External Communications Expl anation DNR (Do Not Resuscitate) 10/21/2014 Date Activated Date Inactivated Comments 06/30/2023 6:31 AM 07/05/2023 8:09 PM Date Activated Date Inactivated Comments 04/23/2023 10:52 PM 04/24/2023 5:24 PM Advance Directive Response Recorded Date/ Time Living Will Yes September 07, 2022 1:50pm Power of Sole Layer Yes September 07 1:50pm Name of Medical Power of Sole Layer NICOLE September 07, 2022 1:50pm Documents on File Type Date Recorded Patient Director External Communications Expl anation DNR (Do Not Resuscitate) 10/21/2014 Latest Code Status on File Code Status Date Activated Date Inactivated Comments Full Code 04/23/2023 10:52 PM 04/24/2023 5:24 PM Latest Code Status on File Code Status Date Activated Date Inactivated Comments Full Code 04/23/2023 10:52 PM 04/24/2023 5:24 PM Latest Code Status on File Code Status Date Activated Date Inactivated Comments Full Code 06/30/2023 6:31 AM 07/05/2023 8:09 PM Code Status History Code Status Date Activated Date Inactivated Comments Full Code 04/23/2023 10:52 PM 04/24/2023 5:24 PM Latest Code Status on File Code Status Date Activated Date Inactivated Comments Full Code 06/30/2023 6:31 AM 07/05/2023 8:09 PM Code Status History Code Status Date Activated Date Inactivated Comments Full Code 04/23/2023 10:52 PM 04/24/2023 5:24 PM Date Activated Date Inactivated Comments 06/30/2023 6:31 AM 07/05/2023 8:09 PM Date Activated Date Inactivated Comments 04/23/2023 10:52 PM 04/24/2023 5:24 PM Advance Directive Response Recorded Date/ Time Do you have a Healthcare Power of Sole Layer? Yes October 07, 2024 10:23am Name of Medical Power of Sole Layer October 07, 2024 10:23am Reason for Referral Specialty Diagnoses / Procedures Referred By Contac t Referred To Contact Radiology Diagnoses Abscess of male pelvis (CMS/HCC) (HCC) Procedures CT abdomen pelvis w contrast Carline Acosta PA-C [address] [facility] [address] [place] [address] Referral ID Status Reason Start Date Expiration Date Visits Re quested Visits Authorized [id number] Closed 07/05/2023 07/04/2024 1 1 Specialty Diagnoses / Procedures Referred By Contac t Referred To Contact Physical Therapy Diagnoses Prostate cancer (HCC) Procedures NC OFFICE/OUTPATIENT NEW HIGH MDM 60 MINUTES Avtar Babin MD [address] [facility] [place] [address] [address] [facility] [address] [place] [address] Referral ID Status Reason Start Date Expiration Date Visits Requested Visits Authorized [id number] Pending Review Eval and Treat 05/10/2023 05/04/2024 99 99 Specialty Diagnoses / Procedures Referred By Bart t Referred To Contact CT IMAGING Diagnoses Lung nodules Procedures CT CHEST WO IVCON DIAGNOSTIC COMPUTED TOMOGRAPHY THORAX W/O CNTRST Chad Davis, TICKET SORTER.EPIC AMBULATORY ANALYST [address] [place] [id number] [facility] [place] [address] Referral ID Status Reason Start Date Expiration Date Visits Requested Visits Authorized [id number] Pending Review Auto-Generat ed Referral 03/02/2023 03/31/2024 1 1 Chief Complaint and Reason for Visit Chief Complaint Admit Date Block, [place] October 13, 2024 9:41 am Additional Source Comments (unrecognized sect ion and content) No Status Records FoundNo Status Records FoundNo Status Records FoundNo Status Records FoundNo Status Records FoundNo Status Records FoundNo Status Records FoundNo Status Records FoundNo Status Records Found INFORMATION SOURCE (unrecogn ized section and content) DATE CREATED AUTHOR 09/12/2017 [facility] DATE CREATED AUTHOR AUTHOR'S ORGANIZ ATION 09/13/2017 [facility] DATE CREATED AUTHOR AUTHOR'S ORGANIZ ATION 08/04/2021 [facility] DATE CREATED AUTHOR AUTHOR'S ORGANIZ ATION 06/05/2023 [facility] DATE CREATED AUTHOR AUTHOR'S ORGANIZ ATION 09/27/2023 [facility] DATE CREATED AUTHOR AUTHOR'S ORGANIZ ATION 02/28/2024 [facility] DATE CREATED AUTHOR AUTHOR'S ORGANIZ ATION 10/11/2024 [facility] DATE CREATED AUTHOR AUTHOR'S ORGANIZ ATION 10/11/2024 [facility] DATE CREATED AUTHOR AUTHOR'S ORGANIZ ATION 10/11/2024 [facility] Source Comments (unrecognize d section and content) In the event this informatio n is protected by the Federal Confidentiality of Alcohol and Drug Abuse Patient Records regulations: The Federal rules restrict any use of the information to criminally investigate or prosecute any alcohol or drug abuse patient.[facility] HospitalIn the event this information is protected by the Federal Confidentiality of Alcohol and Drug Abuse Patient Records regulations: The Federal rules restrict any use of the information to criminally investigate or prosecute any alcohol or drug abuse patient.[facility] HospitalIn the event this information is protected by the Federal Confidentiality of Alcohol and Drug Abuse Patient Records regulations: The Federal rules restrict any use of the information to criminally investigate or prosecute any alcohol or drug abuse patient.[facility] HospitalIn the event this information is protected by the Federal Confidentiality of Alcohol and Drug Abuse Patient Records regulations: The Federal rules restrict any use of the information to criminally investigate or prosecute any alcohol or drug abuse patient.[facility] HospitalIn the event this information is protected by the Federal Confidentiality of Alcohol and Drug Abuse Patient Records regulations: The Federal rules restrict any use of the information to criminally investigate or prosecute any alcohol or drug abuse patient.[facility] HospitalIn the event this information is protected by the Federal Confidentiality of Alcohol and Drug Abuse Patient Records regulations: The Federal rules restrict any use of the information to criminally investigate or prosecute any alcohol or drug abuse patient.[facility] HospitalIn the event this information is protected by the Federal Confidentiality of Alcohol and Drug Abuse Patient Records regulations: The Federal rules restrict any use of the information to criminally investigate or prosecute any alcohol or drug abuse patient.[facility] HospitalIn the event this information is protected by the Federal Confidentiality of Alcohol and Drug Abuse Patient Records regulations: The Federal rules restrict any use of the information to criminally investigate or prosecute any alcohol or drug abuse patient.[facility] HospitalIn the event this information is protected by the Federal Confidentiality of Alcohol and Drug Abuse Patient Records regulations: The Federal rules restrict any use of the information to criminally investigate or prosecute any alcohol or drug abuse patient.[facility] HospitalIn the event this information is protected by the Federal Confidentiality of Alcohol and Drug Abuse Patient Records regulations: The Federal rules restrict any use of the information to criminally investigate or prosecute any alcohol or drug abuse patient.[facility] HospitalIn the event this information is protected by the Federal Confidentiality of Alcohol and Drug Abuse Patient Records regulations: The Federal rules restrict any use of the information to criminally investigate or prosecute any alcohol or drug abuse patient.[facility] HospitalIn the event this information is protected by the Federal Confidentiality of Alcohol and Drug Abuse Patient Records regulations: The Federal rules restrict any use of the information to criminally investigate or prosecute any alcohol or drug abuse patient.[facility] HospitalIn the event this information is protected by the Federal Confidentiality of Alcohol and Drug Abuse Patient Records regulations: The Federal rules restrict any use of the information to criminally investigate or prosecute any alcohol or drug abuse patient.[facility] HospitalIn the event this information is protected by the Federal Confidentiality of Alcohol and Drug Abuse Patient Records regulations: The Federal rules restrict any use of the information to criminally investigate or prosecute any alcohol or drug abuse patient.[facility] HospitalIn the event this information is protected by the Federal Confidentiality of Alcohol and Drug Abuse Patient Records regulations: The Federal rules restrict any use of the information to criminally investigate or prosecute any alcohol or drug abuse patient.[facility] HospitalIn the event this information is protected by the Federal Confidentiality of Alcohol and Drug Abuse Patient Records regulations: The Federal rules restrict any use of the information to criminally investigate or prosecute any alcohol or drug abuse patient.[facility] HospitalIn the event this information is protected by the Federal Confidentiality of Alcohol and Drug Abuse Patient Records regulations: The Federal rules restrict any use of the information to criminally investigate or prosecute any alcohol or drug abuse patient.[facility] HospitalIn the event this information is protected by the Federal Confidentiality of Alcohol and Drug Abuse Patient Records regulations: The Federal rules restrict any use of the information to criminally investigate or prosecute any alcohol or drug abuse patient.[facility] HospitalIn the event this information is protected by the Federal Confidentiality of Alcohol and Drug Abuse Patient Records regulations: The Federal rules restrict any use of the information to criminally investigate or prosecute any alcohol or drug abuse patient.[facility] HospitalIn the event this information is protected by the Federal Confidentiality of Alcohol and Drug Abuse Patient Records regulations: The Federal rules restrict any use of the information to criminally investigate or prosecute any alcohol or drug abuse patient.[facility] HospitalIn the event this information is protected by the Federal Confidentiality of Alcohol and Drug Abuse Patient Records regulations: The Federal rules restrict any use of the information to criminally investigate or prosecute any alcohol or drug abuse patient.[facility] HospitalIn the event this information is protected by the Federal Confidentiality of Alcohol and Drug Abuse Patient Records regulations: The Federal rules restrict any use of the information to criminally investigate or prosecute any alcohol or drug abuse patient.[facility] HospitalIn the event this information is protected by the Federal Confidentiality of Alcohol and Drug Abuse Patient Records regulations: The Federal rules restrict any use of the information to criminally investigate or prosecute any alcohol or drug abuse patient.[facility] HospitalIn the event this information is protected by the Federal Confidentiality of Alcohol and Drug Abuse Patient Records regulations: The Federal rules restrict any use of the information to criminally investigate or prosecute any alcohol or drug abuse patient.[facility] HospitalIn the event this information is protected by the Federal Confidentiality of Alcohol and Drug Abuse Patient Records regulations: The Federal rules restrict any use of the information to criminally investigate or prosecute any alcohol or drug abuse patient.[facility] HospitalIn the event this information is protected by the Federal Confidentiality of Alcohol and Drug Abuse Patient Records regulations: The Federal rules restrict any use of the information to criminally investigate or prosecute any alcohol or drug abuse patient.[facility] HospitalIn the event this information is protected by the Federal Confidentiality of Alcohol and Drug Abuse Patient Records regulations: The Federal rules restrict any use of the information to criminally investigate or prosecute any alcohol or drug abuse patient.[facility] HospitalIn the event this information is protected by the Federal Confidentiality of Alcohol and Drug Abuse Patient Records regulations: The Federal rules restrict any use of the information to criminally investigate or prosecute any alcohol or drug abuse patient.[facility] HospitalIn the event this information is protected by the Federal Confidentiality of Alcohol and Drug Abuse Patient Records regulations: The Federal rules restrict any use of the information to criminally investigate or prosecute any alcohol or drug abuse patient.[facility] HospitalIn the event this information is protected by the Federal Confidentiality of Alcohol and Drug Abuse Patient Records regulations: The Federal rules restrict any use of the information to criminally investigate or prosecute any alcohol or drug abuse patient.[facility] HospitalIn the event this information is protected by the Federal Confidentiality of Alcohol and Drug Abuse Patient Records regulations: The Federal rules restrict any use of the information to criminally investigate or prosecute any alcohol or drug abuse patient.[facility] HospitalIn the event this information is protected by the Federal Confidentiality of Alcohol and Drug Abuse Patient Records regulations: The Federal rules restrict any use of the information to criminally investigate or prosecute any alcohol or drug abuse patient.[facility] HospitalIn the event this information is protected by the Federal Confidentiality of Alcohol and Drug Abuse Patient Records regulations: The Federal rules restrict any use of the information to criminally investigate or prosecute any alcohol or drug abuse patient.[facility] HospitalIn the event this information is protected by the Federal Confidentiality of Alcohol and Drug Abuse Patient Records regulations: The Federal rules restrict any use of the information to criminally investigate or prosecute any alcohol or drug abuse patient.[facility] HospitalIn the event this information is protected by the Federal Confidentiality of Alcohol and Drug Abuse Patient Records regulations: The Federal rules restrict any use of the information to criminally investigate or prosecute any alcohol or drug abuse patient.[facility] HospitalIn the event this information is protected by the Federal Confidentiality of Alcohol and Drug Abuse Patient Records regulations: The Federal rules restrict any use of the information to criminally investigate or prosecute any alcohol or drug abuse patient.[facility] HospitalIn the event this information is protected by the Federal Confidentiality of Alcohol and Drug Abuse Patient Records regulations: The Federal rules restrict any use of the information to criminally investigate or prosecute any alcohol or drug abuse patient.[facility] HospitalIn the event this information is protected by the Federal Confidentiality of Alcohol and Drug Abuse Patient Records regulations: The Federal rules restrict any use of the information to criminally investigate or prosecute any alcohol or drug abuse patient.[facility] HospitalIn the event this information is protected by the Federal Confidentiality of Alcohol and Drug Abuse Patient Records regulations: The Federal rules restrict any use of the information to criminally investigate or prosecute any alcohol or drug abuse patient.[facility] HospitalIn the event this information is protected by the Federal Confidentiality of Alcohol and Drug Abuse Patient Records regulations: The Federal rules restrict any use of the information to criminally investigate or prosecute any alcohol or drug abuse patient.[facility] HospitalIn the event this information is protected by the Federal Confidentiality of Alcohol and Drug Abuse Patient Records regulations: The Federal rules restrict any use of the information to criminally investigate or prosecute any alcohol or drug abuse patient.[facility] HospitalIn the event this information is protected by the Federal Confidentiality of Alcohol and Drug Abuse Patient Records regulations: The Federal rules restrict any use of the information to criminally investigate or prosecute any alcohol or drug abuse patient.[facility] HospitalIn the event this information is protected by the Federal Confidentiality of Alcohol and Drug Abuse Patient Records regulations: The Federal rules restrict any use of the information to criminally investigate or prosecute any alcohol or drug abuse patient.[facility] HospitalIn the event this information is protected by the Federal Confidentiality of Alcohol and Drug Abuse Patient Records regulations: The Federal rules restrict any use of the information to criminally investigate or prosecute any alcohol or drug abuse patient.[facility] HospitalIn the event this information is protected by the Federal Confidentiality of Alcohol and Drug Abuse Patient Records regulations: The Federal rules restrict any use of the information to criminally investigate or prosecute any alcohol or drug abuse patient.[facility] HospitalIn the event this information is protected by the Federal Confidentiality of Alcohol and Drug Abuse Patient Records regulations: The Federal rules restrict any use of the information to criminally investigate or prosecute any alcohol or drug abuse patient.[facility] HospitalIn the event this information is protected by the Federal Confidentiality of Alcohol and Drug Abuse Patient Records regulations: The Federal rules restrict any use of the information to criminally investigate or prosecute any alcohol or drug abuse patient.[facility] HospitalIn the event this information is protected by the Federal Confidentiality of Alcohol and Drug Abuse Patient Records regulations: The Federal rules restrict any use of the information to criminally investigate or prosecute any alcohol or drug abuse patient.[facility] HospitalIn the event this information is protected by the Federal Confidentiality of Alcohol and Drug Abuse Patient Records regulations: The Federal rules restrict any use of the information to criminally investigate or prosecute any alcohol or drug abuse patient.[facility] HospitalIn the event this information is protected by the Federal Confidentiality of Alcohol and Drug Abuse Patient Records regulations: The Federal rules restrict any use of the information to criminally investigate or prosecute any alcohol or drug abuse patient.[facility] HospitalIn the event this information is protected by the Federal Confidentiality of Alcohol and Drug Abuse Patient Records regulations: The Federal rules restrict any use of the information to criminally investigate or prosecute any alcohol or drug abuse patient.[facility] Care Team (unrecognized sect ion and content) Care Team Personnel Name: JESSICA MARTINEZ DO Member Role: Primary Care Physician Address: Address: [address] [place] [place] [address] Care Team Related Persons Name: ROSHAN NICOLE Reason for Visit (unrecogniz ed section and content) Reason Comments Appointment Reason Comments New Patient Reason Onset Date Comments Refill Request 07/13/2022 Reason Comments Release Of Medical Records Reason Comments Radiology NM Reason Comments Cardiac Clearance Reason Comments Patient Question Reason Comments Orders Reason Comments New Patient Reason Comments Post Op PO lap christa Reason Comments Counseling Reason Comments Consult Prostate CA conferen ce Specialty Diagnoses / Procedures Referred By Contac t Referred To Contact Urology Diagnoses prostate cancer Procedures Eval & TX Sunny Farah [address] [facility] [address] [facility] [place] [address] [facility] [address] [place] [address] Referral ID Status Reason Start Date Expiration Date Visits Re quested Visits Authorized [id number] Closed 03/12/2023 03/11/2024 1 1 Reason Onset Date Comments Surgery Scheduling 04/03/2023 PAT/Surgery/F ollow ups scheduled Specialty Diagnoses / Procedures Referred By Bart t Referred To Contact Diagnoses Malignant neoplasm of prostate (HCC) Malignant neoplasm of prostate (HCC) [C61] Procedures NC LAPS SURG [id number] RPBIC RAD W/NRV SPARING ROBOT NC LAPS SURG BILATERAL TOTAL PELVIC LMPHADECTOMY ROBOTIC ASSISTED LAPAROSCOPIC PROSTATECTOMY, BILATERAL PELVIC LYMPH NODE DISSECTION ROBOTIC (XI) RETROPERITONEAL LYMPH NODE DISSECTION/BIOPSY WITH BILATERAL TOTAL PELVIS LYMPHADENECTOMY Avtar Babin MD [address] [place] [address] [facility] Main Or [address] [place] [address] Referral ID Status Reason Start Date Expiration Date Visits Re quested Visits Authorized [id number] 1 1 Reason Comments Post-op Problem Prostate removed 03/27 9. Cannon placed. Now having bruising, pain, and swelling to groin Reason Comments EKG EKG and BP #4 s/p Im plant Reason Comments Prostate Cancer Cannon Removal post R adical Prostatectomy Reason Comments Prostate Cancer Post-op Prostatectomy Reason Comments EKG EKG and BP #6 s/p Im plant Specialty Diagnoses / Procedures Referred By Bart shelton Referred To Contact CT IMAGING Diagnoses Lung nodules Procedures CT CHEST WO IVCON DIAGNOSTIC COMPUTED TOMOGRAPHY THORAX W/O CNTRST Chad Davis, TICKET SORTER.EPIC AMBULATORY ANALYST [address] [place] [address] [place] [address] Referral ID Status Reason Start Date Expiration Date V isits Requested Visits Authorized [id number] Closed Auto-Generate d Referral 05/08/2023 07/07/2023 1 1 Reason Comments Results Reason Comments Patient Update Specialty Diagnoses / Procedures Referred By Bart t Referred To Contact Radiology / RADIO CT SCAN Diagnoses Elevation of levels of liver transaminase levels Fever, unspecified Elevated white blood cell count, unspecified Acquired absence of other specified parts of digestive tract Procedure: CT Abd/Pel W Diagnosis: R74.01 Transaminitis, R50.9 Fever unspecified, D72.829 Leukocytosis of unspecified type, K76.0 Hepatic Steatosis, 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 [place] [address] Referral ID Status Reason Start Date Expiration Date V isits Requested Visits Authorized [id number] Outside PCP 06/29/2023 08/28/2023 1 1 Specialty Diagnoses / Procedures Referred By Bart t Referred To Contact Diagnoses Abscess of male pelvis (CMS/HCC) (HCC) Pelvic abscess Procedures .. Jonna Day MD [address] [place] [address] [facility] On[facility] Med [address] [place] [phone] Referral ID Status Reason Start Date Expiration Date Visits Re quested Visits Authorized [id number] 1 1 Reason Comments Hospital Follow-up IR Drain for pelvic fluid collection./ Has Ct Scan scheduled for 07/19/23 Specialty Diagnoses / Procedures Referred By Chungac t Referred To Contact Radiology Diagnoses Abscess of male pelvis (CMS/HCC) (HCC) Procedures CT abdomen pelvis w contrast Carline Acosta PA-C [address] [facility] [address] [place] [id number] Referral ID Status Reason Start Date Expiration Date Visits Re quested Visits Authorized [id number] Closed 07/05/2023 07/04/2024 1 1 Reason Comments Prostate Cancer Review Labs and Ct S can Reason Comments Remote Pacemaker Follow Up Reason Comments Follow-up Prostate Cancer Reason Onset Date Comments Other 11/15/2023 Reason Comments Prostate Cancer Conference Reason Comments Follow Up Reason Comments Permanent Pacemaker Reason Onset Date Comments Refill Request 01/11/2024 Reason Comments Procedure Cysto for ADELSO eval Reason Onset Date Comments Surgery Scheduling 02/01/2024 Reason Comments Patient Update AFIB Reason Comments Erectile Dysfunction IPP activation Reason Onset Date Comments Refill Request 05/06/2024 Reason Onset Date Comments Refill Request 05/26/2024 Reason Comments Follow Up Reason Onset Date Comments Other 07/15/2024 Advice on surger y Reason Comments Prostate Cancer Follow-up Care Teams (unrecognized sec tion and content) Social Work Lecturer Relationship Specialty Start Date End Date Jessica Martinez, DO [address] [facility] [address] [place] [phone] PCP - General Family Medicine 09/30/21 Boyd Linares, DO [address] [place] [address] Endocrinology 09/30/21 Social Work Lecturer Relationship Specialty Start Date End Date Jessica Martinez, DO [address] [facility] [address] [place] [phone] PCP - General Family Medicine 09/30/21 Boyd Linares, DO [address] [place], [place] [id number] Endocrinology 09/30/21 Social Work Lecturer Relationship Specialty Start Date End Date Jessica Martinez, DO [address] [facility] [address] [place] [phone] PCP - General Family Medicine 09/30/21 Boyd Linares, DO [address] [place] [address] Endocrinology 09/30/21 Social Work Lecturer Relationship Specialty Start Date End Date Jessica Martinez, DO [address] [facility] [address] [facility] [place] [phone] PCP - General Family Medicine 09/30/21 Boyd Linares, DO [address] [place] [address] Endocrinology 09/30/21 Social Work Lecturer Relationship Specialty Start Date End Date Jessica Martinez, DO [address] [facility] [address] [place] [phone] PCP - General Family Medicine 09/30/21 Boyd Linares, DO [address] [place] [address] Endocrinology 09/30/21 Team Status: Active Member Role Status Dates JESSICA MARTINEZ Family Provider Active JESSICA MARTINEZ Primary Care Provider Active Team Status: Inactive Member Role Status Dates EVERT LUZ Primary Care Provider Active Dr. Sunny Estevez MD Attending Provider, Referring Provider Active Social Work Lecturer Relationship Specialty Start Date End Date Jessica Martinez, DO [address] [facility] [address] [facility] [place] [phone] PCP - General Family Medicine 09/30/21 Boyd Linares, DO [address] [place] [address] Endocrinology 09/30/21 Social Work Lecturer Relationship Specialty Start Date End Date Jessica Martinez, DO [address] [facility] [address] [place] [phone] PCP - General Family Medicine 09/30/21 Boyd Linares DO [address] [facility] [place] [address] Endocrinology 09/30/21 Social Work Lecturer Relationship Specialty Start Date End Date Jessica Martinez DO [address] [facility] [address] [facility] [place] [phone] PCP - General Family Medicine 09/30/21 Boyd Linares, [address] [facility] [place] [address] Endocrinology 09/30/21 Social Work Lecturer Relationship Specialty Start Date End Date Jessica Martinez DO [address] [facility] [address] [place] [phone] PCP - General Family Medicine 09/30/21 Boyd Linares, [address] [facility] [place] [address] Endocrinology 09/30/21 Social Work Lecturer Relationship Specialty Start Date End Date Jessica Martinez, [address] [facility] [address] [place] [phone] PCP - General Family Medicine 09/30/21 Boyd Linares, [address] [facility] [place] [address] Endocrinology 09/30/21 Social Work Lecturer Relationship Specialty Start Date End Date Jessica Martinez, [address] [facility] 220 [place] [phone] PCP - General Family Medicine 09/30/21 Boyd Linares DO [address] [place] [address] Endocrinology 09/30/21 Social Work Lecturer Relationship Specialty Start Date End Date Jessica Martinez DO [address] [facility] 220 [place] [phone] PCP - General Family Medicine 09/30/21 Boyd Linares DO [address] [place] [address] Endocrinology 09/30/21 Social Work Lecturer Relationship Specialty Start Date End Date Jessica Martinez DO [address] [facility] 220 [place] [phone] PCP - General Family Medicine 09/30/21 Boyd Linares DO [address] [place] [address] Endocrinology 09/30/21 Social Work Lecturer Relationship Specialty Start Date End Date Nir Le MD [address] [facility] 100 [place] [address] PCP - General Family Medicine 02/06/23 Boyd Linares DO [address] [place] [address] Endocrinology 09/30/21 Social Work Lecturer Relationship Specialty Start Date End Date Nir Le MD [address] [facility] 100 [place] [address] PCP - General Family Medicine 02/06/23 Boyd Linares DO [address] [place] [address] Endocrinology 09/30/21 Social Work Lecturer Relationship Specialty Start Date End Date Nri Le MD [address] [address] PCP - General Family Medicine 02/06/23 Boyd Linares DO [address] [place] [address] Endocrinology 09/30/21 Social Work Lecturer Relationship Specialty Start Date End Date Nir Le MD [address] [place] [address] PCP - General Family Medicine 02/06/23 Boyd Linares DO [address] [place] [address] Endocrinology 09/30/21 Social Work Lecturer Relationship Specialty Start Date End Date Nir Le MD [address] [place] [address] PCP - General Family Medicine 02/06/23 Boyd Linares DO [address] [place] [address] Endocrinology 09/30/21 Social Work Lecturer Relationship Specialty Start Date End Date Nir Le MD [address] [place] [address] PCP - General Family Medicine 02/06/23 Boyd Linares DO [address] [place] [address] Endocrinology 09/30/21 Sunny Farah [address] [address] Urology 03/02/23 Social Work Lecturer Relationship Specialty Start Date End Date Jessica Martinez [address] [place] [address], [address] [place] [address] PCP - General 10/14/14 Avtar Babin MD [address] [place] [address] [place] [address] Surgeon Urology 03/12/23 Social Work Lecturer Relationship Specialty Start Date End Date Jessica Martinez [address] [place] [address], [address] [place] [address] PCP - General 10/14/14 Avtar Babin MD [address] [place] [address] [address] [place] [address] Surgeon Urology 03/12/23 Social Work Lecturer Relationship Specialty Start Date End Date Jessica Martinez [address] [place] [address], [address] [place] [address] PCP - General 10/14/14 Avtar Babin MD [address] [place] [address] Surgeon Urology 03/12/23 Social Work Lecturer Relationship Specialty Start Date End Date Jessica Martinez [facility], [address] [place] [address] PCP - General 10/14/14 Avtar Babin MD [address] [place] [address] Surgeon Urology 03/12/23 Social Work Lecturer Relationship Specialty Start Date End Date Jessica Martinez [address] [place] [address], [address] [place] [address] PCP - General 10/14/14 04/17/23 Nir Le MD [address] [facility] [place] [phone] PCP - General Family Medicine 04/18/23 Avtar [address] [place] [address] [place] [address] Surgeon Urology 03/12/23 Social Work Lecturer Relationship Specialty Start Date End Date Jessica Martinez [address] [place] [address], [address] [place] [address] PCP - General 10/14/14 04/17/23 Nir Le MD [address] [place] [phone] PCP - General Family Medicine 04/18/23 Avtar Babin MD [address] [place] [address] Surgeon Urology 03/12/23 Social Work Lecturer Relationship Specialty Start Date End Date Jessica Martinez [facility], [address] [place] [address] PCP - General 10/14/14 04/17/23 Nir Le MD [address] [place] [phone] PCP - General Family Medicine 04/18/23 Avtar Babin MD [address] [place] [address] Surgeon Urology 03/12/23 Social Work Lecturer Relationship Specialty Start Date End Date Nir Le MD [address] [place] [phone] PCP - General Family Medicine 04/18/23 Avtar Babin MD [address] [place] [address] Surgeon Urology 03/12/23 Social Work Lecturer Relationship Specialty Start Date End Date Nir Le MD [address] [place] [phone] PCP - General Family Medicine 04/18/23 Avtar Babin MD [address] [place] [address] Surgeon Urology 03/12/23 Social Work Lecturer Relationship Specialty Start Date End Date Nir Le MD [address] [address] PCP - General Family Medicine 02/06/23 Boyd Linares DO [address] [place] [address] Endocrinology 09/30/21 Sunny Farah 2600 [facility] 400 [place], [place] [phone] Urology 03/02/23 Social Work Lecturer Relationship Specialty Start Date End Date Nir Le MD [address] [place] [phone] PCP - General Family Medicine 04/18/23 Avtar Babin MD [address] [place] [address] Surgeon Urology 03/12/23 Social Work Lecturer Relationship Specialty Start Date End Date Nir Le MD [address] [place] [phone] PCP - General Family Medicine 04/18/23 Avtar Babin MD [address] [place] [address] Surgeon Urology 03/12/23 Codie [place], RN Nurse Navigator Oncology 05/03/23 Social Work Lecturer Relationship Specialty Start Date End Date Nir Le MD [address] [address] PCP - General Family Medicine 02/06/23 Boyd Linares DO [address] [place] [address] Endocrinology 09/30/21 Sunny Farah [address] [address] Urology 03/02/23 Social Work Lecturer Relationship Specialty Start Date End Date Nir Le MD [address] [facility] 100 [place] [address] PCP - General Family Medicine 02/06/23 Boyd Linares DO [address] [place] [address] Endocrinology 09/30/21 Sunny Farah [address] [address] Urology 03/02/23 Social Work Lecturer Relationship Specialty Start Date End Date Nir Le MD [address] [facility] 100 [place] [address] PCP - General Family Medicine 02/06/23 Boyd Linares DO [address] [place] [address] Endocrinology 09/30/21 Sunny Farah [address] [address] Urology 03/02/23 Social Work Lecturer Relationship Specialty Start Date End Date Nir Le MD [address] [facility] 100 [place] [address] PCP - General Family Medicine 02/06/23 Boyd Linares DO [address] [place] [address] Endocrinology 09/30/21 Sunny Farah [address] [address] Urology 03/02/23 Social Work Lecturer Relationship Specialty Start Date End Date Nir Le MD [address] [address] PCP - General Family Medicine 02/06/23 Boyd Linares DO [address] [place] [address] Endocrinology 09/30/21 Sunny Farah [address] [address] Urology 03/02/23 Social Work Lecturer Relationship Specialty Start Date End Date Nir Le MD [address] [address] PCP - General Family Medicine 02/06/23 Boyd Linares DO [address] [place] [address] Endocrinology 09/30/21 Sunny Farah [address] [address] Urology 03/02/23 Social Work Lecturer Relationship Specialty Start Date End Date Nir Le MD [address] [place] [phone] PCP - General Family Medicine 04/18/23 Avtar Babin MD [address] [place] [address] Surgeon Urology 03/12/23 Codie [place], RN Nurse Navigator Oncology 05/03/23 Social Work Lecturer Relationship Specialty Start Date End Date Nir Le MD [address] [place] [phone] PCP - General Family Medicine 04/18/23 Avtar Babin MD [address] [place] [address] [place] [address] Surgeon Urology 03/12/23 Codie [place], RN Nurse Navigator Oncology 05/03/23 Social Work Lecturer Relationship Specialty Start Date End Date Nir Le MD [address] [place] [phone] PCP - General Family Medicine 04/18/23 Avtar Babin MD [address] [place] [address] [place] [address] Surgeon Urology 03/12/23 Codie [place], RN Nurse Navigator Oncology 05/03/23 Social Work Lecturer Relationship Specialty Start Date End Date Nir Le MD [address] [place] [phone] PCP - General Family Medicine 04/18/23 Avtar Babin MD [address] [place] [address] Surgeon Urology 03/12/23 Codie [place], RN Nurse Navigator Oncology 05/03/23 Social Work Lecturer Relationship Specialty Start Date End Date Nir Le MD [address] [place] [phone] PCP - General Family Medicine 04/18/23 Avtar Babin MD [address] [place] [address] Surgeon Urology 03/12/23 Codie [place], RN Nurse Navigator Oncology 05/03/23 Social Work Lecturer Relationship Specialty Start Date End Date Nir Le MD [address] [place] [phone] PCP - General Family Medicine 04/18/23 Avtar Babin MD [address] [place] [address] Surgeon Urology 03/12/23 Codie [place], RN Nurse Navigator Oncology 05/03/23 Social Work Lecturer Relationship Specialty Start Date End Date Nir Le MD [address] [facility] [facility] 100 [place] [address] PCP - General Family Medicine 02/06/23 Boyd Linares DO [address] [place] [address] Endocrinology 09/30/21 Sunny Farah 2600 [facility] 400 [place] [address] Urology 03/02/23 Social Work Lecturer Relationship Specialty Start Date End Date Nir Le MD [address] [facility] 100 [place] [address] PCP - General Family Medicine 02/06/23 Boyd Linares DO [address] [place], [place] [address] Endocrinology 09/30/21 Sunny Farah 26[address] [facility] 400 [place], [place] [phone] Urology 03/02/23 Social Work Lecturer Relationship Specialty Start Date End Date Nir Le MD [address] [place] [phone] PCP - General Family Medicine 04/18/23 Avtar Babin MD [address] [place] [address] Surgeon Urology 03/12/23 Codie [place], JESENIA Nurse Navigator Oncology 05/03/23 Social Work Lecturer Relationship Specialty Start Date End Date Nir Le MD [address] [place] [phone] PCP - General Family Medicine 04/18/23 Avtar Babin MD [address] [place] [address] Surgeon Urology 03/12/23 Codie [place], RN Nurse Navigator Oncology 05/03/23 Social Work Lecturer Relationship Specialty Start Date End Date Jessica Martinez DO [address] [facility] [address] [place] [phone] PCP - General Family Medicine 09/30/21 02/05/23 Boyd Linares DO [address] [place] [address] Endocrinology 09/30/21 Social Work Lecturer Relationship Specialty Start Date End Date Nir Le MD [address] [place] [phone] PCP - General Family Medicine 04/18/23 Avtar Babin MD [address] [place] [address] Surgeon Urology 03/12/23 Codie [place], JESENIA Nurse Navigator Oncology 05/03/23 Aric Linda DO [address] [place] [address] Surgeon Urology 01/02/24 Social Work Lecturer Relationship Specialty Start Date End Date Nir Le MD [address] [address] PCP - General Family Medicine 02/06/23 Boyd Linares DO [address] [place] [address] Endocrinology 09/30/21 Sunny Farah [address] [address] Urology 03/02/23 Social Work Lecturer Relationship Specialty Start Date End Date Nir Le MD [address] [facility] 100 [place] [address] PCP - General Family Medicine 02/06/23 Boyd Linares DO [address] [place] [address] Endocrinology 09/30/21 Sunny Farah [address] [address] Urology 03/02/23 Social Work Lecturer Relationship Specialty Start Date End Date Nir Le MD [address] [address] PCP - General Family Medicine 02/06/23 Boyd Linares DO [address] [place] [address] Endocrinology 09/30/21 Sunny Farah [address] [place] [address] Urology 03/02/23 Social Work Lecturer Relationship Specialty Start Date End Date Nir Le MD [address] [place] [address] PCP - General Family Medicine 04/18/23 Avtar Babin MD 95 [facility] 165 [place], [place] [address] Surgeon Urology 03/12/23 Codie [place], RN Nurse Navigator Oncology 05/03/23 Aric Linda DO 95 [facility] [address] [place], [place] [address] Surgeon Urology 01/02/24 Social Work Lecturer Relationship Specialty Start Date End Date Nir Le MD [address] [place] [phone] PCP - General Family Medicine 04/18/23 Avtar Babin MD [address] [place] [address] Surgeon Urology 03/12/23 Codie [place], RN Nurse Navigator Oncology 05/03/23 Aric Linda DO [address] [place] [address] Surgeon Urology 01/02/24 Social Work Lecturer Relationship Specialty Start Date End Date Nir Le MD [address] [place] [phone] PCP - General Family Medicine 04/18/23 Avtar Babin MD [address] [place] [address] Surgeon Urology 03/12/23 Codie [place], RN Nurse Navigator Oncology 05/03/23 Aric Linda DO [address] [place] [address] Surgeon Urology 01/02/24 Social Work Lecturer Relationship Specialty Start Date End Date Nir Le MD [address] [place] [phone] PCP - General Family Medicine 04/18/23 Avtar Babin MD [address] [place] [address] Surgeon Urology 03/12/23 Codie [place], RN Nurse Navigator Oncology 05/03/23 Aric Linda DO [address] [place] [address] Surgeon Urology 01/02/24 Social Work Lecturer Relationship Specialty Start Date End Date Nir Le MD [address] [place] [phone] PCP - General Family Medicine 04/18/23 Avtar Babin MD [address] [place] [address] Surgeon Urology 03/12/23 Codie [place], RN Nurse Navigator Oncology 05/03/23 Aric Linda DO [address] [place] [address] Surgeon Urology 01/02/24 Social Work Lecturer Relationship Specialty Start Date End Date Nir Le MD [address] [place] [phone] PCP - General Family Medicine 04/18/23 Avtar Babin MD [address] [place] [address] Surgeon Urology 03/12/23 Codie [place], RN Nurse Navigator Oncology 05/03/23 Aric Linda DO [address] [place] [address] Surgeon Urology 01/02/24 Social Work Lecturer Relationship Specialty Start Date End Date Nir Le MD [address] [address] PCP - General Family Medicine 02/06/23 Boyd Linares DO [address] [place] [address] Endocrinology 09/30/21 Sunny Farah [address] [address] Urology 03/02/23 Social Work Lecturer Relationship Specialty Start Date End Date Nir Le MD [address] [address] PCP - General Family Medicine 02/06/23 Boyd Linares DO [address] [place] [address] Endocrinology 09/30/21 Sunny Farah [address] [address] Urology 03/02/23 Social Work Lecturer Relationship Specialty Start Date End Date Nir Le MD [address] [address] PCP - General Family Medicine 02/06/23 Boyd Linares DO [address] [place] [address] Endocrinology 09/30/21 Sunny Farah [address] [address] Urology 03/02/23 Social Work Lecturer Relationship Specialty Start Date End Date Nir Le MD [address] [address] PCP - General Family Medicine 02/06/23 Boyd Linares DO [address] [place] [address] Endocrinology 09/30/21 Sunny Farah [address] [address] Urology 03/02/23 Social Work Lecturer Relationship Specialty Start Date End Date Nir Le MD [address] [address] PCP - General Family Medicine 02/06/23 Boyd Linares DO [address] [place] [address] Endocrinology 09/30/21 Sunny Farah [address] [address] Urology 03/02/23 Social Work Lecturer Relationship Specialty Start Date End Date Nir Burnett MD [address] [place] [address] PCP - General Family Medicine 04/18/23 Atvar Babin MD [address] [place] [address] Surgeon Urology 03/12/23 Codie [place], RN Nurse Navigator Oncology 05/03/23 Aric Linda DO [address] [place] [address] Surgeon Urology 01/02/24 Social Work Lecturer Relationship Specialty Start Date End Date Nir Le MD [address] [address] PCP - General Family Medicine 02/06/23 Boyd Linares DO [address] [place], [place] [address] Endocrinology 09/30/21 Sunny Farah [address] [address] Urology 03/02/23 Social Work Lecturer Relationship Specialty Start Date End Date Nir Le MD [address] [address] PCP - General Family Medicine 02/06/23 Boyd Linares DO [address] [place] [address] Endocrinology 09/30/21 Sunny Farah [address] [address] Urology 03/02/23 Social Work Lecturer Relationship Specialty Start Date End Date Nir Le MD [address] [facility] 100 [place] [address] PCP - General Family Medicine 02/06/23 Boyd Linares DO [address] [place] [address] Endocrinology 09/30/21 Sunny Farah 2600 [facility] 400 [place] [address] Urology 03/02/23 Social Work Lecturer Relationship Specialty Start Date End Date Nir Burnett MD [address] [place] [address] PCP - General Family Medicine 04/18/23 Avtar Babin MD [address] [facility] [place] [address] Surgeon Urology 03/12/23 Codie [place], JESENIA Nurse Navigator Oncology 05/03/23 Aric Linda DO [address] [place] [address] Surgeon Urology 01/02/24 Team Status: Active Member Role/Relationship Status Dates NIR BURNETT Primary Care Provider Active Team Status: Inactive Member Role/Relationship Status Dates Dr. Sunny Estevez MD Attending Provider Active Start: October 13, 2024 End: October 13, 2024 Dr. Sunny Estevez MD Referring Provider Active Start: October 13, 2024 End: October 13, 2024 HORTENCIA LOYOLA Primary Care Provider Active Start: October 13, 2024 End: October 13, 2024 Scheduled Active and Recently Administ ered Medications (unrecognized section and content) Medication Order 04/22/2023 04/23/2023 04/24/2023 acetaminophen (Tylenol) tablet 1,000 mg (COMPLETED) 1,000 mg, Oral, Once, On Sun04/23/23 at 1145, For 1 dose, Preprocedure, Maximum dose of acetaminophen is 4000 mg from all sources in 24 hours. Do not administer if patient has taken tylenol <4 hours earlier. Do not give if contraindicated ie. patient has active liver disease or cirrhosis. 1159 (Given - Provider: Janelle Felipe RN) acetaminophen (Tylenol) tablet 1,000 mg 1,000 mg, Oral, Every 8 hours, First dose on Sun04/23/23 at 2300, Phase II/On Unit 2330 (Given - Provider: Alejandra Quigley RN) 0856 (Given - Provider: Samantha Murray RN)1500 (Canceled Entry - Provider: Automatic Discharge Provider - Comment: Automatically canceled at discontinue of medication order) amitriptyline (Elavil) tablet 100 mg 100 mg, Oral, Nightly, First dose on Sun04/23/23 at 2100, Recovery & On Unit 2330 (Given - Provider: Alejandra Quigley RN) amLODIPine (Norvasc) tablet 5 mg 5 mg, Oral, Daily, First dose on Sun04/23/23 at 1815, Recovery & On Unit 1815 (Canceled Entry - Provider: Automatic Discharge Provider - Comment: Automatically canceled at discontinue of medication order) 0852 (Given - Provider: Samantha Murray RN) atorvastatin (Lipitor) tablet 10 mg 10 mg, Oral, Daily, First dose on Sun04/23/23 at 2200, Recovery & On Unit 2329 (Given - Provider: Alejandra Quigley RN) bisacodyl (Dulcolax) suppository 10 mg 10 mg, Rectal, Daily, First dose on Sun04/24/23 at 0900, Phase II/On Unit, 1st line for treatment of constipation - give scheduled if no bowel movement in past 24 hours. 0900 (Not Given - Provider: Samantha Murray RN - Reason: Patient/family refused) ceFAZolin (Ancef) 1,000 mg in sodium chloride 0.9 % 50 mL IVPB 1,000 mg, IntraVENous, at 100 mL/hr, Administer over 30 Minutes, Every 8 hours, First dose on Sun04/23/23 at 2200, For 3 doses, Recovery & On Unit, Mini-Bag Plus bag, Suspected Indication (Select all that apply): Surgical Prophylaxis 2330 (New Bag - Provider: Alejandra Quigley RN) 0000 (Stopped - Provider: Alejandra Quigley RN)0857 (New Bag - Provider: Samantha Murray RN)0927 (Stopped - Provider: Samantha Murray RN)1400 (Canceled Entry - Provider: Automatic Discharge Provider - Comment: Automatically canceled at discontinue of medication order) ceFAZolin in dextrose 4% (Ancef) IVPB 2,000 mg (COMPLETED) 2,000 mg, IntraVENous, Administer over 30 Minutes, Once, On Sun04/23/23 at 1145, For 1 dose, Preprocedure, Administer 60 minutes prior to surgery. premix bag, Suspected Indication (Select all that apply): Surgical Prophylaxis 1359 (Given - Provider: Yogesh Worley CRNA) docusate sodium (Colace) capsule 100 mg 100 mg, Oral, 2 times daily, First dose on Sun04/23/23 at 2300, Phase II/On Unit, Bowel Regimen - for prevention of constipation. 2329 (Given - Provider: Alejandra Quigley RN) 0852 (Given - Provider: Samantha Murray RN) enoxaparin (Lovenox) syringe 40 mg 40 mg, SubCUTAneous, Every 24 hours scheduled (Daily), First dose on Sun04/24/23 at 0900, Phase II/On Unit, Indication of Use: Prophylaxis-DVT/PE, Indications: Prophylaxis of Venous Thromboembolism 0851 (Given - Provid er: Samantha Murray RN) famotidine (Pepcid) tablet 20 mg (COMPLETED) 20 mg, Oral, Once, On Sun04/23/23 at 1145, For 1 dose, Preprocedure 1159 (Given - Provider: Janelle Felipe RN) fluticasone (Flonase) nasal spray 1 spray 1 spray, Each Nostril, Daily, First dose on Sun04/23/23 at 1815, Recovery & On Unit, Shake gently. Before first use, prime pump (press 6 times until fine spray appears). After use, clean tip and replace cap. 181 (Canceled Entry - Provider: Automatic Discharge Provider - Comment: Automatically canceled at discontinue of medication order) 0900 (Given - Provider: Samantha Murray RN) gabapentin (Neurontin) capsule 600 mg 600 mg, Oral, 3 times daily, First dose on Sun04/23/23 at 2100, Recovery & On Unit 2330 (Given - Provider: Alejandra Quigley RN) 0851 (Given - Provider: Samantha Murray RN)1400 (Canceled Entry - Provider: Automatic Discharge Provider - Comment: Automatically canceled at discontinue of medication order) heparin injection 5,000 Units (COMPLETED) 5,000 Units, SubCUTAneous, Once, On Sun04/23/23 at 1145, For 1 dose, Preprocedure 1159 (Given - Provider: Janelle Felipe RN) Insulin Lispro (Humalog) injection 0-12 Units(Linked Group 1) 0-12 Units, SubCUTAneous, 3 times daily with meals, First dose on Sun04/23/23 at 1815, Recovery & On Unit, Medium Dose Correction Algorithm Glucose: Dose: LESS than 139 No Insulin 140-199 2 Unit 200-249 4 Units 250-299 6 Units 300-349 8 Units 350-400 10 Units Above 400 12 Units 1815 (Canceled Entry - Provider: Automatic Discharge Provider - Comment: Automatically canceled at discontinue of medication order) 0800 (Not Given - Provider: Samantha Murray RN - Reason: Order parameters not met - Comment: BGT: [phone] (Given - Provider: Aby Villatoro - Comment: BGT: [phone] (Canceled Entry - Provider: Automatic Discharge Provider - Comment: Automatically canceled at discontinue of medication order) Insulin Lispro (Humalog) injection 0-12 Units(Linked Group 1) 0-12 Units, SubCUTAneous, Nightly, First dose on Sun04/23/23 at 2100, Recovery & On Unit, If continuous tube feedings/TPN/NPO, give correction dose based on result, no reduction in dose. If eating or bolus tube feeding: Medium Dose Correction Algorithm Glucose: Dose: LESS than 139 No Insulin 140-199 2 Unit 200-249 4 Units 250-299 6 Units 300-349 8 Units 350-400 10 Units Above 400 12 Units 2100 (Not Given - Provider: Alejandra Quigley RN - Reason: Order parameters not met - Comment: 138) levothyroxine (Synthroid, Levoxyl) tablet 50 mcg 50 mcg, Oral, Daily before breakfast, First dose on Sun04/24/23 at 0700, Recovery & On Unit, Tube feeding (TF) interaction, obtain physician order to manage, recommend holding TF for 30 minutes before and after dose. 0520 (Given - Provid er: Norma Jackson RN) lisinopril tablet 40 mg 40 mg, Oral, Daily, First dose on Sun04/23/23 at 1815, Recovery & On Unit 1815 (Canceled Entry - Provider: Automatic Discharge Provider - Comment: Automatically canceled at discontinue of medication order) 0851 (Given - Provider: Samantha Murray RN) pantoprazole (ProtoNix) EC tablet 40 mg 40 mg, Oral, Daily before breakfast, First dose on Sun04/24/23 at 0700, Recovery & On Unit, Substituted for omeprazole (Prilosec). Do not crush, chew, or split. 0520 (Given - Provid er: Norma Jackson RN) sodium chloride 0.9% (NS) flush 10 mL 10 mL, IntraVENous, Every 12 hours scheduled (2 times per day), First dose on Sun04/23/23 at 2300, Phase II/On Unit 2343 (Given - Provider: Alejandra Quigley RN) 0859 (Not Given - Provider: Samantha Murray RN - Reason: IV Fluids Infusing) sotalol (Betapace) tablet 240 mg 240 mg, Oral, Every 12 hours, First dose on Sun04/23/23 at 1815, Recovery & On Unit, Please refer to [facility] article Tikosyn (Dofetilide) and Sotalol (Betapace AF) Administration for required ECG monitoring and documentation. 1815 (Canceled Entry - Provider: Automatic Discharge Provider - Comment: Automatically canceled at discontinue of medication order) 0615 (Not Given - Provider: Norma Jackson RN - Reason: Other) Continuous Medication Order 04/22/2023 04/23/2023 04/24/2023 lactated Ringer's (LR) infusion 50 mL/hr, IntraVENous, Continuous, Starting on Sun04/23/23 at 1145, Preprocedure, Upon admission to sameday - please start iv if patient does not have iv access. Use 500ml NS for patients on dialysis. 1159 (New Bag - Provider: Chidi Felipe RN)1204 (New Bag - Provider: Janelle Felipe RN)1344 (Continued by Anesthesia - Provider: Yogesh Worley CRNA)1808 (Anesthesia Volume Adjustment - Provider: Yogesh Worley CRNA) sodium chloride 0.9 % infusion 75 mL/hr, IntraVENous, Continuous, Starting on Sun04/23/23 at 2300, Phase II/On Unit 2343 (New Bag - Provider: Alejandra Quigley RN) PRN Medication Order 04/22/2023 04/23/2023 04/24/2023 ALPRAZolam (Xanax) disintegrating tablet 0.25 mg (COMPLETED) 0.25 mg, Oral, PRN, anxiety, Starting on Sun04/23/23 at 1136, For 1 dose, Preprocedure, Using dry hands, place tablet on top of tongue and allow to disintegrate. Administration with water is not necessary. 1159 (Given - Provider: Janelle Felipe RN) dextrose 5 % infusion 100 mL/hr, IntraVENous, PRN, Blood sugar less than 70mg/dL, Starting on Sun04/23/23 at 2150, Start infusion following administration of dextrose 50% or glucagon. dextrose 50 % solution 12.5 g 12.5 g, IntraVENous, PRN, low blood sugar, Blood glucose less than 70 mg/dL and patient NOT ALERT or NPO., Starting on Sun04/23/23 at 2150, If patient does not respond within 5 minutes, repeat dose x1. Start D5W at 100 mL/hour until ordering provider can be reached. Repeat blood glucose in 15 minutes. If blood glucose is less than 70 mg/dL, repeat treatment and recheck blood glucose in 15 minutes x2. If using Glucostabilizer, dose as instructed per system. fibrin sealant (human) (VISTASEAL) syringe (CANCELED) As needed, Starting on Sun04/23/23 at 1721, Intraprocedure 1721 (Given - Provider: Avtar Babin MD) glucagon (human recombinant) injection 1 mg 1 mg, IntraMUSCular, PRN, low blood sugar, Blood glucose less than 70 mg/dL and patient NOT ALERT or NPO and does not have IV access., Starting on Sun04/23/23 at 2150, After administration, attempt intravenous access and start D5W at 100 mL/hr. Repeat blood glucose in 15 minutes x2 and notify provider. glucose oral gel 15 g 15 g, Oral, As needed, low blood sugar, Starting on Sun04/23/23 at 2150, If blood glucose less than 50 mg/dL and patient ALERT and NOT NPO, give 2 tubes glucose gel. If blood glucose less than 70 mg/dL and patient ALERT and NOT NPO, give 1 tube glucose gel. Repeat blood glucose in 15 minutes. If blood glucose is less than 70 mg/dL, repeat treatment and recheck blood glucose in 15 minutes x2 and notify provider. morphine injection 2 mg 2 mg, IntraVENous, Every 4 hours PRN, breakthrough, Starting on Sun04/23/23 at 2252, Phase II/On Unit, If oral and IV narcotics ordered, use oral first and only use IV if oral is ineffective or cannot take oral. Do Not give oral and IV within 1 hour of each other unless specifically ordered. 0145 (Given - Provid er: Norma Jackson RN)1014 (Given - Provider: Samantha Murray, JESENIA) naloxone (Narcan) injection 0.4 mg 0.4 mg, IntraVENous, Every 5 min PRN, opioid reversal, respiratory depression, Starting on Sun04/23/23 at 2302, +++ For RR <10, pinpoint pupils, over sedation for opioid reversal - MUST notify premium cancellation clerk provider immediately after first dose, may give IM or SQ if no IV access +++ oxyCODONE (Roxicodone) immediate release tablet 10 mg(Linked Group 2) 10 mg, Oral, Every 4 hours PRN, severe pain (7-10), Starting on Sun04/23/23 at 2252, Phase II/On Unit 2330 (Given - Provider: Alejandra Quigley RN) 0850 (Given - Provider: Samantah Murray, JESENIA)1303 (Given - Provider: Samantha Murray, JESENIA) oxyCODONE (Roxicodone) immediate release tablet 5 mg(Linked Group 2) 5 mg, Oral, Every 4 hours PRN, moderate pain (4-6), Starting on Sun04/23/23 at 2252, Phase II/On Unit 2330 (See Alternative - Provider: Alejandra Quigley RN) 0850 (See Alternative - Provider: Samantha Murray, RN)1303 (See Alternative - Provider: Samantha Murray, RN) promethazine (Phenergan) injection 12.5 mg(Linked Group 3) 12.5 mg, IntraMUSCular, Every 6 hours PRN, nausea, vomiting, Starting on Sun04/23/23 at 2303, Only to be given as IM injection. promethazine (Phenergan) suppository 12.5 mg(Linked Group 3) 12.5 mg, Rectal, Every 6 hours PRN, nausea, vomiting, Starting on Sun04/23/23 at 2303 promethazine (Phenergan) tablet 12.5 mg(Linked Group 3) 12.5 mg, Oral, Every 6 hours PRN, nausea, vomiting, Starting on Sun04/23/23 at 2303 sodium chloride 0.9 % infusion 5-250 mL/hr, IntraVENous, PRN, if patient receiving piggyback infusions and maintenance fluids are not ordered OR KVO fluids to protect IV site / prevent frequent line interruptions/ long duration, Starting on Sun04/23/23 at 2252, Phase II/On Unit, For piggyback infusion, administer at same rate as piggyback for a total of 25 mL. Enter 25 mL into dose field and piggyback rate into rate field of order. If piggyback is infusing at a rate less than 100 mL/hr, enter 25 mL into dose field and 100 mL/hr into rate field of order. For KVO fluids, enter rate of 20 mL/hr or less into rate field of order. sodium chloride 0.9 % irrigation solution (CANCELED) As needed, Starting on Sun04/23/23 at 1411, Intraprocedure 1411 (Given - Provider: Avtar Babin MD) sodium chloride 0.9% (NS) flush 10 mL 10 mL, IntraVENous, PRN, line care, Starting on Sun04/23/23 at 2252, Phase II/On Unit, After every IV line use Linked Groups Order Group 1: Insulin Lispro (Humalog) injection 0-12 UnitsJump to med 0-12 Units, SubCUTAneous, 3 times daily with meals, First dose on Sun04/23/23 at 1815, Recovery & On Unit, Medium Dose Correction Algorithm Glucose: Dose: LESS than 139 No Insulin 140-199 2 Unit 200-249 4 Units 250-299 6 Units 300-349 8 Units 350-400 10 Units Above 400 12 Units And Insulin Lispro (Humalog) injection 0-12 UnitsJump to med 0-12 Units, SubCUTAneous, Nightly, First dose on Sun04/23/23 at 2100, Recovery & On Unit, If continuous tube feedings/TPN/NPO, give correction dose based on result, no reduction in dose. If eating or bolus tube feeding: Medium Dose Correction Algorithm Glucose: Dose: LESS than 139 No Insulin 140-199 2 Unit 200-249 4 Units 250-299 6 Units 300-349 8 Units 350-400 10 Units Above 400 12 Units Group 2: oxyCODONE (Roxicodone) immediate release tablet 5 mgJump to med 5 mg, Oral, Every 4 hours PRN, moderate pain (4-6), Starting on Sun04/23/23 at 2252, Phase II/On Unit Or oxyCODONE (Roxicodone) immediate release tablet 10 mgJump to med 10 mg, Oral, Every 4 hours PRN, severe pain (7-10), Starting on Sun04/23/23 at 2252, Phase II/On Unit Group 3: promethazine (Phenergan) tablet 12.5 mgJump to med 12.5 mg, Oral, Every 6 hours PRN, nausea, vomiting, Starting on Sun04/23/23 at 2303 Or promethazine (Phenergan) injection 12.5 mgJump to med 12.5 mg, IntraMUSCular, Every 6 hours PRN, nausea, vomiting, Starting on Sun04/23/23 at 2303, Only to be given as IM injection. Or promethazine (Phenergan) suppository 12.5 mgJump to med 12.5 mg, Rectal, Every 6 hours PRN, nausea, vomiting, Starting on Sun04/23/23 at 2303 Scheduled Medication Order 04/25/2023 04/26/2023 04/27/2023 HYDROmorphone (Dilaudid) injection 1 mg (COMPLETED) 1 mg, IntraMUSCular, Once, On 2/2/24 at 0035, For 1 dose, If oral and IV narcotics ordered, use oral first and only use IV if oral is ineffective or cannot take oral. Do Not give oral and IV within 1 hour of each other unless specifically ordered. 0031 (Given - Provid er: Nya Omer RN) morphine injection 4 mg (COMPLETED) 4 mg, IntraVENous, Once, On Marah 04/26/23 at 2000, For 1 dose, If oral and IV narcotics ordered, use oral first and only use IV if oral is ineffective or cannot take oral. Do Not give oral and IV within 1 hour of each other unless specifically ordered. 215 (Given - Provider: Nya Omer RN) Scheduled Medication Order 07/03/2023 07/04/2023 07/05/2023 amitriptyline (Elavil) tablet 100 mg 100 mg, Oral, Nightly, First dose on 06/30/23 at 2100 2108 (Given - Provider: Shante Alfaro RN) 2036 (Given - Provider: Rocío Mena, JESENIA) amLODIPine (Norvasc) tablet 5 mg 5 mg, Oral, Daily, First dose on 06/30/23 at 1930 0850 (Given - Provider: Karishma Payne) 1043 (Given - Provider: Yumiko Piper) 1036 (Given - Provider: Akilah Ramirez) amoxicillin-clavulanat e (Augmentin) 875-125 MG per tablet 1 tablet 1 tablet (875 mg), Oral, Every 12 hours scheduled (2 times per day), First dose on Marah 07/05/23 at 1630, Suspected Indication (Select all that apply): Intra-Abdominal Infection 1630 (Canceled Entry - Provider: Automatic Discharge Provider - Comment: Automatically canceled at discontinue of medication order) atorvastatin (Lipitor) tablet 10 mg 10 mg, Oral, Nightly, First dose on 06/30/23 at 2100 2108 (Given - Provider: Shante Alfaro RN) 2036 (Given - Provider: Rocío Mena RN) fluticasone (Flonase) nasal spray 1 spray 1 spray, Each Nostril, Daily, First dose on 06/30/23 at 1930, Shake gently. Before first use, prime pump (press 6 times until fine spray appears). After use, clean tip and replace cap. 0854 (Not Given - Provider: Karishma Payne - Reason: Other - Comment: pt states that he took medication earlier in the morning.) 1044 (Given - Provider: Yumiko Piper) 1036 (Given - Provider: Akilah Ramirez) gabapentin (Neurontin) capsule 300 mg 300 mg, Oral, 3 times daily, First dose on 06/30/23 at 2100 0948 (Given - Provider: Yumiko Piper)1414 (Given - Provider: Yumiko Piper)2108 (Given - Provider: Shante Alfaro RN) 1043 (Given - Provider: Yumiko Piper)1429 (Given - Provider: Yumiko Piper)203 (Given - Provider: Rocío Mena, JESENIA) 1036 (Given - Provider: Akilah Ramirez)1349 (Given - Provider: Akilah Ramirez) levothyroxine (Synthroid, Levoxyl) tablet 50 mcg 50 mcg, Oral, Daily before breakfast, First dose on 07/01/23 at 0600, Tube feeding (TF) interaction, obtain physician order to manage, recommend holding TF for 30 minutes before and after dose. 0532 (Given - Provider: Shante Alfaro RN) 0550 (Given - Provider: Shante Alfaro RN) 0538 (Given - Provider: Rocío Mena, JESENIA) lisinopril tablet 40 mg 40 mg, Oral, Daily, First dose on 06/30/23 at 1930 0850 (Given - Provider: Karishma Payne) 1042 (Given - Provider: Yumiko Piper) 1036 (Given - Provider: Akilah Ramirez) pantoprazole (ProtoNix) EC tablet 40 mg 40 mg, Oral, Daily before breakfast, First dose on 07/01/23 at 0600, Substituted for omeprazole (Prilosec). Do not crush, chew, or split. 0532 (Given - Provider: Shante Alfaro RN) 0550 (Given - Provider: Shante Alfaro RN) 0538 (Given - Provider: Rocío Mena, JESENIA) piperacillin-tazobacta m (Zosyn) IVPB 3,375 mg (CANCELED) 3,375 mg, IntraVENous, at 12.5 mL/hr, Administer over 4 Hours, Every 8 hours, First dose on Sun07/01/23 at 1400, premix bag, Suspected Indication (Select all that apply): Intra-Abdominal Infection 0012 (New Bag - Provider: Shante Alfaro, RN)0412 (Stopped - Provider: Shante Alfaro RN)0803 (New Bag - Provider: Yumiko Piper)1203 (Stopped - Provider: Yumiko Piper)1612 (New Bag - Provider: Yumiko Piper)2012 (Stopped - Provider: Shante Alfaro RN) 0201 (New Bag - Provider: Shante Alfaro RN)0601 (Stopped - Provider: Shante Alfaro RN)1042 (New Bag - Provider: Yumiko Piper)1442 (Stopped - Provider: Yumiko Piper)1813 (New Bag - Provider: Yumiko Piper)2213 (Stopped - Provider: Rocío Mena, JESENIA) 0119 (New Bag - Provider: Rocío Mena, JESENIA)0519 (Stopped - Provider: Rocío Mena, JESENIA)1037 (New Bag - Provider: Akilah Ramirez)1437 (Stopped - Provider: Beatriz Hull RN) potassium chloride CR (Klor-Con M10) ER tablet 30 mEq (COMPLETED) 30 mEq, Oral, Every 2 hours, First dose on Sun07/04/23 at 0915, For 2 doses, Best given with food and plenty of water to minimize gastric irritation. Do not crush or chew. 1042 (Given - Provider: Yumiko Piper)1303 (Given - Provider: Carmen Pabon, JESENIA) rivaroxaban (Xarelto) tablet 20 mg 20 mg, Oral, Daily with evening meal, First dose on Sun06/30/23 at 1845, Anticoagulant! Best administered with food or immediately before tube feedings. If ordered via NG or G-tube route, crush and mix with 50 mL water; give within 4 hours of mixing. 0614 (Unheld by provider - Provider: Isrrael Arce MD)1835 (Given - Provider: Yumiko Piper) 1813 (Given - Provider: Yumiko Piper) 1800 (Canceled Entry - Provider: Automatic Discharge Provider - Comment: Automatically canceled at discontinue of medication order) senna-docusate sodium (Senokot-S) 8.6-50 MG tablet 2 tablet 2 tablet, Oral, Nightly, First dose on Sun07/03/23 at 2100, Hold for loose stools, multiple BM/day, or no opioid pain medications received this date. 210 (Given - Provider: Shante Alfaro RN) 2100 (Not Given - Provider: Rocío Mena RN - Reason: Patient/family refused - Comment: pt reports multiple loose bowel movements) sodium chloride 0.9% (NS) flush 5-40 mL 5-40 mL, IntraVENous, Every 12 hours, First dose on 06/30/23 at 0645, For Line Patency: Peripheral IV = 5 mL; Midline or Central Line = 10 mL/lumen. If following IV push medication, administer flush at same rate as the IV push. Flush volume is determined by type of infusion therapy being given. For non-viscous solutions use: Peripheral IV = 5 mL Midline or Central Line = 10 mL/lumen For viscous solutions (i.e. blood components, parenteral nutrition, contrast media, or after obtaining blood sample) use: Peripheral IV = 10 mL Midline or Central Line = 20 mL/lumen 0645 (Not Given - Provider: Shante Alfaro RN - Reason: IV Fluids Infusing)183 (Given - Provider: Yumiko Piper) 0645 (Not Given - Provider: Shante Alfaro RN - Reason: IV Fluids Infusing)181 (Given - Provider: Yumiko Piper) 0645 (Not Given - Provider: Rocío Mena RN - Reason: IV Fluids Infusing)184 (Canceled Entry - Provider: Automatic Discharge Provider - Comment: Automatically canceled at discontinue of medication order) sotalol (Betapace) tablet 240 mg 240 mg, Oral, Every 12 hours, First dose on Sun06/30/23 at 1930, Please refer to [facility] article Tikosyn (Dofetilide) and Sotalol (Betapace AF) Administration for required ECG monitoring and documentation. 0628 (Given - Provider: Shante Alfaro RN)1837 (Given - Provider: Yumiko Piper) 0643 (Given - Provider: Shante Alfaro RN)2036 (Given - Provider: Rocío Mena RN) 0835 (Given - Provider: Akilah Ramirez)1930 (Canceled Entry - Provider: Automatic Discharge Provider - Comment: Automatically canceled at discontinue of medication order) tamsulosin (Flomax) 24 hr capsule 0.4 mg 0.4 mg, Oral, Daily, First dose on 06/30/23 at 1930, Do not crush, chew, or split. 0849 (Given - Provider: Karishma Payne) 1043 (Given - Provider: Yumiko Piper) 1036 (Given - Provider: Akilah Ramirez) vancomycin IVPB 1250 mg in 250 mL NS (premix) (CANCELED) 1,250 mg, IntraVENous, Administer over 90 Minutes, Every 12 hours, First dose on 07/01/23 at 0200, premix bag, Suspected Indication (Select all that apply): Intra-Abdominal Infection 0948 (New Bag - Provider: Yumiko Piper)1118 (Stopped - Provider: Yumiko Piper)2213 (New Bag - Provider: Shante Alfaro RN)2343 (Stopped - Provider: Shante Alfaro RN) 1042 (New Bag - Provider: Yumiko Piper)1212 (Stopped - Provider: Yumiko Piper)2205 (New Bag - Provider: Rocío Mena RN)2335 (Stopped - Provider: Rocío Mena, JESENIA) 1037 (New Bag - Provider: Akilah Ramirez)1207 (Stopped - Provider: Beatriz Hull RN) PRN Medication Order 07/03/2023 07/04/2023 07/05/2023 acetaminophen (Tylenol) suppository 650 mg(Linked Group 1) 650 mg, Rectal, Every 6 hours PRN, mild pain (1-3), fever, For temp greater than 100.4 F (38 C), Starting on 06/30/23 at 0630, Administer if oral route cannot be used. Maximum dose of acetaminophen is 4000 mg from all sources in 24 hours. acetaminophen (Tylenol) tablet 650 mg(Linked Group 1) 650 mg, Oral, Every 6 hours PRN, mild pain (1-3), fever, For temp greater than 100.4 F (38 C), Starting on 06/30/23 at 0630, Maximum dose of acetaminophen is 4000 mg from all sources in 24 hours. hydrALAZINE (Apresoline) injection 5 mg 5 mg, IntraVENous, Every 4 hours PRN, high blood pressure, give if sbp >165mmg, Starting on Sun06/30/23 at 0620 HYDROcodone-acetaminophen ([place]) 5-325 MG per tablet 1 tablet (CANCELED) 1 tablet, Oral, Every 6 hours PRN, moderate pain (4-6), Starting on Sun06/30/23 at 1838, Maximum dose of acetaminophen is 4000 mg from all sources in 24 hours. 1013 (Given - Provider: Carmen Pabon RN)1612 (Given - Provider: Yumiko Piper) HYDROcodone-acetaminophen ([place]) 5-325 MG per tablet 1 tablet 1 tablet, Oral, Every 6 hours PRN, moderate pain (4-6), severe pain (7-10), Starting on Sun07/03/23 at 1628, Maximum dose of acetaminophen is 4000 mg from all sources in 24 hours. 2213 (Given - Provider: Shante Alfaro RN) 0550 (Given - Provider: Shante Alfaro RN)1429 (Given - Provider: Yumiko Piper) 0122 (Given - Provider: Rocío Mena, JESENIA)0857 (Given - Provider: Akilah Ramirez) iopamidol (Isovue-370) 76 % injection 75 mL (COMPLETED) 75 mL, IntraVENous, IMG once PRN, contrast, Starting on Sun07/04/23 at 1317, For 1 dose 1319 (Given - Provider: Aditya Wilson, RT (R)(CT)) naloxone (Narcan) injection 0.4 mg 0.4 mg, IntraVENous, Every 5 min PRN, opioid reversal, respiratory depression, Starting on Sun06/30/23 at 0625, +++ For RR <10, pinpoint pupils, over sedation for opioid reversal - MUST notify premium cancellation clerk provider immediately after first dose, may give IM or SQ if no IV access +++ ondansetron (Zofran) injection 4 mg(Linked Group 2) 4 mg, IntraVENous, Every 6 hours PRN, nausea, vomiting, Starting on 06/30/23 at 0630, 1st Line. Give IV if patient is unable to take orally. If inadequate response within 60 minutes, proceed to next-line agent or contact provider if no further options ordered. ondansetron ODT (Zofran-ODT) disintegrating tablet 4 mg(Linked Group 2) 4 mg, Oral, Every 8 hours PRN, nausea, vomiting, Starting on 06/30/23 at 0630, 1st Line. If inadequate response within 60 minutes, proceed to next-line agent or contact provider if no further options ordered. Patient should allow tablet to dissolve on tongue. Do not remove from blister pack until just before administering. polyethylene glycol (PEG) 3350 (Miralax) packet 17 g 17 g, Oral, Daily PRN, constipation, Starting on 06/30/23 at 0630, 1st line for treatment of constipation - give scheduled if no bowel movement in past 24 hours. sodium chloride 0.9 % infusion 5-250 mL/hr, IntraVENous, PRN, if patient receiving piggyback infusions and maintenance fluids are not ordered OR KVO fluids to protect IV site / prevent frequent line interruptions / long duration, Starting on 06/30/23 at 0630, For piggyback infusion, administer at same rate as piggyback for a total of 25 mL. Enter 25 mL into dose field and piggyback rate into rate field of order. If piggyback is infusing at a rate less than 100 mL/hr, enter 25 mL into dose field and 100 mL/hr into rate field of order. For KVO fluids, enter rate of 20 mL/hr or less into rate field of order. sodium chloride 0.9% (NS) flush 5-40 mL 5-40 mL, IntraVENous, PRN, line care, After every IV line use, Starting on 06/30/23 at 0630, For Line Patency: Peripheral IV = 5 mL; Midline or Central Line = 10 mL/lumen. If following IV push medication, administer flush at same rate as the IV push. Flush volume is determined by type of infusion therapy being given. For non-viscous solutions use: Peripheral IV = 5 mL Midline or Central Line = 10 mL/lumen For viscous solutions (i.e. blood components, parenteral nutrition, contrast media, or after obtaining blood sample) use: Peripheral IV = 10 mL Midline or Central Line = 20 mL/lumen Linked Groups Order Group 1: acetaminophen (Tylenol) tablet 650 mgJump to med 650 mg, Oral, Every 6 hours PRN, mild pain (1-3), fever, For temp greater than 100.4 F (38 C), Starting on 06/30/23 at 0630, Maximum dose of acetaminophen is 4000 mg from all sources in 24 hours. Or acetaminophen (Tylenol) suppository 650 mgJump to med 650 mg, Rectal, Every 6 hours PRN, mild pain (1-3), fever, For temp greater than 100.4 F (38 C), Starting on 06/30/23 at 0630, Administer if oral route cannot be used. Maximum dose of acetaminophen is 4000 mg from all sources in 24 hours. Group 2: ondansetron ODT (Zofran-ODT) disintegrating tablet 4 mgJump to med 4 mg, Oral, Every 8 hours PRN, nausea, vomiting, Starting on 06/30/23 at 0630, 1st Line. If inadequate response within 60 minutes, proceed to next-line agent or contact provider if no further options ordered. Patient should allow tablet to dissolve on tongue. Do not remove from blister pack until just before administering. Or ondansetron (Zofran) injection 4 mgJump to med 4 mg, IntraVENous, Every 6 hours PRN, nausea, vomiting, Starting on 06/30/23 at 0630, 1st Line. Give IV if patient is unable to take orally. If inadequate response within 60 minutes, proceed to next-line agent or contact provider if no further options ordered. Scheduled Medication Order 03/08/2024 03/09/2024 03/10/2024 acetaminophen (Tylenol) tablet 1,000 mg 1,000 mg, Oral, Once, On Sun03/10/24 at 0615, For 1 dose, Preprocedure, Maximum dose of acetaminophen is 4000 mg from all sources in 24 hours. Do not administer if patient has taken tylenol <4 hours earlier. Do not give if contraindicated ie. patient has active liver disease or cirrhosis. Please administer 60 min prior to procedure. 0615 (Not Given - Pr ovider: Briana Goldman RN - Reason: Other) acetaminophen (Tylenol) tablet 1,000 mg (COMPLETED) 1,000 mg, Oral, Once, On Sun03/10/24 at 0615, For 1 dose, Preprocedure, Administer 60 minutes prior to surgery. 0632 (Given - Provid er: Briana Goldman RN) famotidine (Pepcid) 20 mg in sodium chloride (PF) 0.9 % 10 mL injection(Linked Group 1) 20 mg, IntraVENous, Administer over 2 Minutes, Once, On Sun03/10/24 at 0615, For 1 dose, Preprocedure, IV or ORAL 0615 (Canceled Entry - Provider: Automatic Discharge Provider - Comment: Automatically canceled at discontinue of medication order) famotidine (Pepcid) tablet 20 mg(Linked Group 1) 20 mg, Oral, Once, On Sun03/10/24 at 0615, For 1 dose, Preprocedure, IV or ORAL 0615 (Canceled Entry - Provider: Automatic Discharge Provider - Comment: Automatically canceled at discontinue of medication order) fluconazole in NS (Diflucan) IVPB 400 mg (COMPLETED) 400 mg, IntraVENous, at 100 mL/hr, Administer over 120 Minutes, Once, On Sun03/10/24 at 1200, For 1 dose, Intraprocedure, premix bag, Coverage: Karol albicans, Infection Site: Prophylaxis 1144 (Given - Provid er: GREGORIO Sheikh CRNA)1224 (Anesthesia Volume Adjustment - Provider: GREGORIO Sheikh CRNA) gentamicin (Garamycin) 400 mg in sodium chloride 0.9 % 250 mL IVPB (COMPLETED) 400 mg (rounded from 397.5 mg = 5 mg/kg 79.5 kg Adjusted weight), IntraVENous, Administer over 60 Minutes, Once, On Sun03/10/24 at 0615, For 1 dose, Preprocedure, Suspected Indication (Select all that apply): Surgical Prophylaxis 0753 (New Bag - Prov ider: GREGORIO Sheikh CRNA) sodium chloride 0.9% (NS) flush 10 mL 10 mL, IntraVENous, Every 12 hours scheduled (2 times per day), First dose on Sun03/10/24 at 0900, Preprocedure 0900 (Canceled Entry - Provider: Automatic Discharge Provider - Comment: Automatically canceled at discontinue of medication order) sodium chloride 0.9% (NS) flush 10 mL 10 mL, IntraVENous, Every 12 hours scheduled (2 times per day), First dose on Sun03/10/24 at 2100, Recovery (only) sodium chloride 0.9% (NS) flush 5-40 mL 5-40 mL, IntraVENous, Every 12 hours, First dose on Sun03/10/24 at 0615, Preprocedure, For Line Patency: Peripheral IV = 5 mL; Midline or Central Line = 10 mL/lumen. If following IV push medication, administer flush at same rate as the IV push. Flush volume is determined by type of infusion therapy being given. For non-viscous solutions use: Peripheral IV = 5 mL Midline or Central Line = 10 mL/lumen For viscous solutions (i.e. blood components, parenteral nutrition, contrast media, or after obtaining blood sample) use: Peripheral IV = 10 mL Midline or Central Line = 20 mL/lumen 0615 (Canceled Entry - Provider: Automatic Discharge Provider - Comment: Automatically canceled at discontinue of medication order)1815 (Canceled Entry - Provider: Automatic Discharge Provider - Comment: Automatically canceled at discontinue of medication order) vancomycin IVPB 1250 mg in 250 mL NS (premix) (COMPLETED) 1,250 mg (rounded from 1,192.5 mg = 15 mg/kg 79.5 kg Adjusted weight), IntraVENous, at 166.7 mL/hr, Administer over 90 Minutes, Once, On Sun03/10/24 at 0615, For 1 dose, Preprocedure, Start antibiotic 2 hours prior to surgery while patient in Pre-Op premix bag, Suspected Indication (Select all that apply): Surgical Prophylaxis 0819 (Given - Provid er: GREGORIO Sheikh CRNA)1224 (Anesthesia Volume Adjustment - Provider: GREGORIO Sheikh CRNA) Continuous Medication Order 03/08/2024 03/09/2024 03/10/2024 lactated Ringer's (LR) infusion 50 mL/hr, IntraVENous, Continuous, Starting on Sun03/10/24 at 0615, Preprocedure, Upon admission to sameday - please start iv if patient does not have iv access. Use 500ml NS for patients on dialysis. 0634 (New Bag - Prov ider: Briana Goldman RN)0735 (Continued by Anesthesia - Provider: GREGORIO Sheikh CRNA)0955 (Paused - Provider: GREGORIO Sheikh CRNA - Comment: Switch to gravity)0956 (Restarted - Provider: GREGORIO Sheikh CRNA)1224 (Stopped - Provider: GREGORIO Sheikh CRNA) lactated ringers infusion 125 mL/hr, IntraVENous, Continuous, Starting on Sun03/10/24 at 1245, Recovery (only) 1245 (Canceled Entry - Provider: Automatic Discharge Provider - Comment: Automatically canceled at discontinue of medication order) PRN Medication Order 03/08/2024 03/09/2024 03/10/2024 ALPRAZolam (Xanax) disintegrating tablet 0.25 mg 0.25 mg, Oral, Once PRN, anxiety, Starting on Sun03/10/24 at 0609, For 1 dose, Preprocedure, Please do not administer prior to obtaining consent and / or history and physical. bupivacaine PF (Marcaine) 0.25 % injection (CANCELED) As needed, Starting on Sun03/10/24 at 1010, Intraprocedure 1010 (Given - Provid er: Aric Linda DO)1016 (Given - Provider: Aric Linda DO) dextrose 5 % infusion 100 mL/hr, IntraVENous, PRN, Blood sugar less than 70mg/dL, Starting on Sun03/10/24 at 0609, Preprocedure, Start infusion following administration of dextrose 50% or glucagon. dextrose 50 % solution 12.5 g 12.5 g, IntraVENous, PRN, low blood sugar, Blood glucose less than 70 mg/dL and patient NOT ALERT or NPO., Starting on Sun03/10/24 at 0609, Preprocedure, If patient does not respond within 5 minutes, repeat dose x1. Start D5W at 100 mL/hour until ordering provider can be reached. Repeat blood glucose in 15 minutes. If blood glucose is less than 70 mg/dL, repeat treatment and recheck blood glucose in 15 minutes x2. If using Glucostabilizer, dose as instructed per system. diphenhydrAMINE (BENADryl) injection 12.5 mg 12.5 mg, IntraVENous, Once PRN, itching, Starting on Sun03/10/24 at 1235, For 1 dose, Recovery (only) fentaNYL (Sublimaze) injection 25 mcg 25 mcg, IntraVENous, Every 5 min PRN, moderate pain (4-6), Starting on Sun03/10/24 at 1235, For 3 doses, Recovery (only), Phase I and Phase II- Initial therapy for moderate pain (4-6). Restricted to a 90 minute time frame starting when the patient can verbally state their pain score. If after 2 doses the pain score does not decrease by more than one point, then call the provider. If oral meds are utilized, do not return to initial therapy medications. fentaNYL (Sublimaze) injection 50 mcg (COMPLETED) 50 mcg, IntraVENous, Every 5 min PRN, severe pain (7-10), Starting on Sun03/10/24 at 1235, For 3 doses, Recovery (only), Phase I and Phase II- Initial therapy for severe pain (7-10). Restricted to a 90 minute time frame starting when the patient can verbally state their pain score. If after 2 doses the pain score does not decrease by more than one point, then call the provider. If oral meds are utilized, do not return to initial therapy medications. 1307 (Given - Provid er: Trudy Woodson RN)1316 (Given - Provider: Trudy Woodson RN)1339 (Given - Provider: Trudy Woodson RN) gentamicin (Garamycin) 180 mg in sodium chloride 0.9 % 1,000 mL irrigation (CANCELED) As needed, Starting on Sun03/10/24 at 0955, Intraprocedure 0955 (Given - Provid er: Trudy Abdi MD) glucagon (human recombinant) injection 1 mg 1 mg, IntraMUSCular, PRN, low blood sugar, Blood glucose less than 70 mg/dL and patient NOT ALERT or NPO and does not have IV access., Starting on Sun03/10/24 at 0609, Preprocedure, After administration, attempt intravenous access and start D5W at 100 mL/hr. Repeat blood glucose in 15 minutes x2 and notify provider. glucose oral gel 15 g 15 g, Oral, As needed, low blood sugar, Starting on Sun03/10/24 at 0609, Preprocedure, If blood glucose less than 50 mg/dL and patient ALERT and NOT NPO, give 2 tubes glucose gel. If blood glucose less than 70 mg/dL and patient ALERT and NOT NPO, give 1 tube glucose gel. Repeat blood glucose in 15 minutes. If blood glucose is less than 70 mg/dL, repeat treatment and recheck blood glucose in 15 minutes x2 and notify provider. hydrALAZINE (Apresoline) injection 5 mg(Linked Group 2) 5 mg, IntraVENous, Every 15 min PRN, high blood pressure, for SBP greater than 160 mmHg for 2 consecutive measurements taken from different sites, Starting on Sun03/10/24 at 1235, For 2 doses, Recovery (only), PRN for SBP > 160 for 2 consecutive measurements, and if one of the following conditions is met: 1) If IV labetolol is ineffective. 2) If HR is under 60. 3) If patient has heart block, COPD or asthma. If both labetalol and hydralazine ineffective, notify anesthesia provider. Insulin Lispro (Humalog) injection 0-12 Units 0-12 Units, SubCUTAneous, PRN, high blood sugar, Surgery patient, Starting on Sun03/10/24 at 0609, For 3 doses, Preprocedure, Corrective Low Dose Algorithm Glucose: Dose: 70-180 No Insulin 181-240 4 Unit 241-300 6 Units 301-350 8 Units 351-400 10 Units Over 400 12 Units and notify physician labetalol (Normodyne,Trandate) injection 5 mg(Linked Group 2) 5 mg, IntraVENous, Every 10 min PRN, high blood pressure, for SBP greater than 160 mmHg for 2 consecutive measurements taken from different sites., Starting on Sun03/10/24 at 1235, For 2 doses, Recovery (only), PRN for SBP >160 for 2 consecutive measurements, if HR is 60 or greater. If beta ralph is contraindicated (HR less than 60, heart block, COPD or asthma) use hydralazine IV order. ondansetron (Zofran) injection 4 mg 4 mg, IntraVENous, Once PRN, nausea, Starting on Sun03/10/24 at 1235, For 1 dose, Recovery (only), Initial antiemetic therapy. oxyCODONE (Roxicodone) immediate release tablet 10 mg (COMPLETED)(Linked Group 3) 10 mg, Oral, Every 4 hours PRN, severe pain (7-10), Starting on Sun03/10/24 at 1235, For 1 dose, Recovery (only), PHASE II 1449 (Given - Provid er: Mckay Burger RN) sodium chloride 0.9 % bolus 500 mL 500 mL, IntraVENous, at 1,000 mL/hr, Administer over 0.5 Hours, PRN, Anti-nausea, Starting on Sun03/10/24 at 1235, Recovery (only), Indications: Anti-nausea sodium chloride 0.9 % infusion 5-250 mL/hr, IntraVENous, PRN, if patient receiving piggyback infusions and maintenance fluids are not ordered OR KVO fluids to protect IV site / prevent frequent line interruptions / long duration, Starting on Sun03/10/24 at 0609, Preprocedure, For piggyback infusion, administer at same rate as piggyback for a total of 25 mL. Enter 25 mL into dose field and piggyback rate into rate field of order. If piggyback is infusing at a rate less than 100 mL/hr, enter 25 mL into dose field and 100 mL/hr into rate field of order. For KVO fluids, enter rate of 20 mL/hr or less into rate field of order. sodium chloride 0.9 % infusion 5-250 mL/hr, IntraVENous, PRN, if patient receiving piggyback infusions and maintenance fluids are not ordered OR KVO fluids to protect IV site / prevent frequent line interruptions/ long duration, Starting on Sun03/10/24 at 0609, Preprocedure, For piggyback infusion, administer at same rate as piggyback for a total of 25 mL. Enter 25 mL into dose field and piggyback rate into rate field of order. If piggyback is infusing at a rate less than 100 mL/hr, enter 25 mL into dose field and 100 mL/hr into rate field of order. For KVO fluids, enter rate of 20 mL/hr or less into rate field of order. sodium chloride 0.9 % infusion 5-250 mL/hr, IntraVENous, PRN, if patient receiving piggyback infusions and maintenance fluids are not ordered OR KVO fluids to protect IV site / prevent frequent line interruptions/ long duration, Starting on Sun03/10/24 at 1235, Recovery (only), For piggyback infusion, administer at same rate as piggyback for a total of 25 mL. Enter 25 mL into dose field and piggyback rate into rate field of order. If piggyback is infusing at a rate less than 100 mL/hr, enter 25 mL into dose field and 100 mL/hr into rate field of order. For KVO fluids, enter rate of 20 mL/hr or less into rate field of order. sodium chloride 0.9% (NS) flush 10 mL 10 mL, IntraVENous, PRN, line care, Starting on Sun03/10/24 at 0609, Preprocedure, After every IV line use sodium chloride 0.9% (NS) flush 10 mL 10 mL, IntraVENous, PRN, line care, Starting on Sun03/10/24 at 1235, Recovery (only), After every IV line use sodium chloride 0.9% (NS) flush 5-40 mL 5-40 mL, IntraVENous, PRN, line care, After every IV line use, Starting on Sun03/10/24 at 0609, Preprocedure, For Line Patency: Peripheral IV = 5 mL; Midline or Central Line = 10 mL/lumen. If following IV push medication, administer flush at same rate as the IV push. Flush volume is determined by type of infusion therapy being given. For non-viscous solutions use: Peripheral IV = 5 mL Midline or Central Line = 10 mL/lumen For viscous solutions (i.e. blood components, parenteral nutrition, contrast media, or after obtaining blood sample) use: Peripheral IV = 10 mL Midline or Central Line = 20 mL/lumen Linked Groups Order Group 1: famotidine (Pepcid) tablet 20 mgJump to med 20 mg, Oral, Once, On Sun03/10/24 at 0615, For 1 dose, Preprocedure, IV or ORAL Or famotidine (Pepcid) 20 mg in sodium chloride (PF) 0.9 % 10 mL injectionJump to med 20 mg, IntraVENous, Administer over 2 Minutes, Once, On Sun03/10/24 at 0615, For 1 dose, Preprocedure, IV or ORAL Group 2: labetalol (Normodyne,Trandate) injection 5 mgJump to med 5 mg, IntraVENous, Every 10 min PRN, high blood pressure, for SBP greater than 160 mmHg for 2 consecutive measurements taken from different sites., Starting on Sun03/10/24 at 1235, For 2 doses, Recovery (only), PRN for SBP >160 for 2 consecutive measurements, if HR is 60 or greater. If beta ralph is contraindicated (HR less than 60, heart block, COPD or asthma) use hydralazine IV order. Or hydrALAZINE (Apresoline) injection 5 mgJump to med 5 mg, IntraVENous, Every 15 min PRN, high blood pressure, for SBP greater than 160 mmHg for 2 consecutive measurements taken from different sites, Starting on Sun03/10/24 at 1235, For 2 doses, Recovery (only), PRN for SBP > 160 for 2 consecutive measurements, and if one of the following conditions is met: 1) If IV labetolol is ineffective. 2) If HR is under 60. 3) If patient has heart block, COPD or asthma. If both labetalol and hydralazine ineffective, notify anesthesia provider. Group 3: oxyCODONE (Roxicodone) immediate release tablet 5 mg (COMPLETED) 5 mg, Oral, Every 4 hours PRN, moderate pain (4-6), Starting on Sun03/10/24 at 1235, For 1 dose, Recovery (only), PHASE II Or oxyCODONE (Roxicodone) immediate release tablet 10 mg (COMPLETED)Jump to med 10 mg, Oral, Every 4 hours PRN, severe pain (7-10), Starting on Sun03/10/24 at 1235, For 1 dose, Recovery (only), PHASE II FOR RECORDS PERTAINING TO PATIENTS WHO ARE OR HAVE BEEN ENROLLED IN A CHEMICAL DEPENDENCY/SUBSTANCEABUSE PROGRAM, SOME INFORMATION MAY BE OMITTED. This clinical summary was aggregated from multiple sources. Caution should be exercised in using it in the provision of clinical care. This summary normalizes information from multiple sources, and as a consequence, information in this document may materially change the coding, format and clinical context of patient data. In addition, data may be omitted in some cases. CLINICAL DECISIONS SHOULD BE BASED ON THE PRIMARY CLINICAL RECORDS. [employer] provides no warranty or guarantee of the accuracy or completeness of information in this document.
== END 2024-10-13 11:23 | disposition home or self-care (01) ==
LOC: SDC 09:44 → AC 09:52
PROVIDERS: Referring Provider Anesthesiology Pain Medicine; Visit Provider Anesthesiology Pain Medicine
PROC: 3E0S3BZ Introduction of Anesthetic Agent into Epidural Space, Percutaneous Approach (ICD-10-PCS; CPT 62282; principal; 2024-10-13 11:25)
DX: M51.17 Intervertebral disc disorders with radiculopathy, lumbosacral region (principal); M48.07 Spinal stenosis, lumbosacral region; Z79.899 Other long term (current) drug therapy; Z79.84 Long term (current) use of oral hypoglycemic drugs; Z79.01 Long term (current) use of anticoagulants
CPT/HCPCS: 62323; 01992; 64483; 77003; 82962